=== PATIENT | female | born 1980 | race African-American/Black ===

== ENCOUNTER 2023-08-11 16:39 | Inpatient (IN) | payer MEDICAID, SELFPAY ==
[2023-08-11] VITALS (7 sets, daily range): BP systolic 133–153; BP diastolic 87–111; PULSE 103–120; RESP 14–19; TEMP 36.5–36.9; O2SAT 97–99; BMI 36.4; BMI 36.3
--- NOTE | 2023-08-11 17:38 | EKG12_ITS ---
Test Reason : DIZZINESS Blood Pressure : / mmHG Vent. Rate : 110 BPM Atrial Rate : 110 BPM P-R Int : 152 ms QRS Dur : 136 ms QT Int : 368 ms P-R-T Axes : 059 -22 015 degrees QTc Int : 498 ms Sinus tachycardia Possible Left atrial enlargement Right bundle branch block Abnormal ECG Confirmed by ERICA DAWSON, SANDRO ([id number]), editor greeting card ANDREW LOERA ([id number]) on 08/12/2023 1:18:05 PM Referred By: REKHA Confirmed By:SANDRO MALDONADO MD
--- NOTE | 2023-08-11 17:39 | EDS_ITS ---
HPI History of Present Illness Chief Complaint: Dizziness Narrative Narrative: 43-year-old female past medical history of diabetes, hypertension, recently started on a new antihypertensive, presents with multiple somatic complaints, but mainly lightheadedness and near syncope. Is not necessarily worse with standing. She states been happening over the last few days. She feels like she is going to pass out when she stands, but other times even at rest she feels lightheaded. She denies any chest pain or shortness of breath, no nausea or vomiting, no diarrhea. She denies any spinning sensation or vertiginous-like symptoms, no paresthesias. Although she is diabetic, she states that she has been checking her blood sugars recently. Last menstrual period was a week ago. She states she took her blood pressure and it was elevated in the 140 systolic. [facility] Medical History delivery delivered Diabetes HTN (hypertension) TIA (transient ischemic attack) Home Medications carvedilol 3.125 mg tablet 3.125 mg PO BID 08/11/23 [History Last Taken Unknown] dulaglutide 0.75 mg/0.5 mL subcutaneous pen injector (Trulicity) 0.75 mg subcut QWEEK 08/11/23 [History Last Taken Unknown] lisinopril 5 mg tablet 5 mg PO DAILY 08/11/23 [History Last Taken Unknown] Allergy/AdvReac Type Severity Reaction Status Date / Time latex AdvReac Mild RASH Verified 08/11/23 16:44 Penicillins AdvReac UNKNOWN Verified 08/11/23 16:44 Family History Mother Diabetes Hypertension Father Diabetes Hypertension Surgical History Previous section Social History household members: significant other and children housing: house Smoking Status: Never smoker ROS ROS ED ROS Narrative Constitutional: No fever, no chills. HEENT: No sore throat. No neck pain. No loss of vision. No rhinorrhea. Cardiovascular: No chest pain. No palpitations. No pedal edema. Respiratory: No cough, no shortness of breath. Abdominal: No abdominal pain. No nausea. No vomiting. Genitourinary: No dysuria. No hematuria. Musculoskeletal: No myalgias. No arthralgias. Neurologic: No headaches. No dizziness. Of lightheadedness and near syncope. Skin: No rash. No change in color. Psychiatric: No depression. No anxiety. EXAM Physical Exam Narrative Exam Narrative: Afebrile. Vital signs noted. HEENT: Normocephalic. Atraumatic. PERRL, EOMI. Neck soft and supple. No point tenderness or step off. Cardiovascular: Tachycardia, no murmurs, rubs, or gallops appreciated. Respiratory: No tachypnea. Lungs clear to auscultation bilaterally. Gastrointestinal: Abdomen soft, nontender, with normoactive bowel sounds. No rebound or guarding. Neurological: Awake. Alert. Nonfocal, nonlateralizing. Skin: No rash. Normal color. No pallor. Musculoskeletal: No pedal edema. Full range of motion extremities. Const Vital Signs: 08/11/23 16:41 08/11/23 19:31 Temperature 97.7 F L Temperature Source Temporal Pulse Rate 120 H 110 H Respiratory Rate 18 14 Blood Pressure 152/108 H Blood Pressure Mean 122 Pulse Ox 99 Oxygen Delivery Method Room Air MDM MDM MDM Narrative Medical decision making narrative: Differential diagnosis is orthostatic hypotension, hyperglycemia, given her tachycardia lower on the differential is pulmonary embolism because the history and physical does not support this. She may have intravascular volume depletion. Comprehensive work-up was pursued. Obtain a CBC, CMP, test, and D-dimer. I do not feel CT of the brain is indicated because she is not having vertiginous-like symptoms is more near syncope. I do feel a single troponin would help rule out cardiac ischemia. EKG was obtained and interpreted by myself independently as sinus tachycardia at 110 bpm with a right bundle branch block. No acute ST changes. No STEMI. No prior with which to compare. I reviewed her laboratory work and she has normal white count of 5.4, hemoglobin slightly low at 11.8 which I think is nonspecific, crit 37.8, platelet count normal at 311. Her D-dimer is slightly elevated at 0.72. Potassium is slightly low at 3.3 and hyponatremia of 135, BUN normal at 9 with a creatinine of 1.13. Glucose is elevated to 80 consistent with her diabetes but she has an anion gap low at 4 so I do not have concern for diabetic ketoacidosis. AST is slightly elevated at 60 with ALT of 105 and she has a normal alk phos. Urinalysis is negative for infection. Of significance is her troponin elevated at 1494. As she had an elevated D-dimer, CTA was obtained. I reviewed the radiology report which reports no evidence of pulmonary embolism. Chest x-ray in 1 view was interpreted by myself which shows no acute process, no pneumonia. I reviewed the radiology report which confirms my independent interpretation. I feel antibiotics are indicated. She was star milan on heparin given her non-STEMI/elevated troponin. Also given aspirin. At this point in time, patient was discussed with hospitalist, Dr. Echevarria, for admission to the PCU. Patient is in stable condition. History & Record Review Discussion w/independent historian: Patient Additional record(s) reviewed:: No prior records Lab Data Attestation: I reviewed the patient's lab results. Labs: Laboratory Results - last 24 hr 08/11/23 08/11/23 08/11/23 18:01 18:04 19:25 WBC 5.4 RBC 4.41 Hgb 11.8 L Hct 37.8 MCV 85.7 MCH 26.8 L MCHC 31.2 L RDW Std Deviation 45.6 H RDW Coeff of Chad 14.6 Plt Count 311 MPV 10.1 Immature Gran % (Auto) 0.400 Neut % (Auto) 63.5 Lymph % (Auto) 26.6 [place] % (Auto) 7.6 Eos % (Auto) 1.3 Baso % (Auto) 0.6 Absolute Neuts (auto) 3.4 Absolute Lymphs (auto) 1.43 Nucleated RBC % 0 PT 14.1 INR 1.1 APTT 24.6 D-Dimer Quant (PE/DVT) 0.72 H* Sodium 135 L Potassium 3.3 L Chloride 106 Carbon Dioxide 25.0 Anion Gap 4 L BUN 9 Creatinine 1.13 H Estim Creat Clear Calc 53.65 Est GFR (MDRD) Af Amer 68 Est GFR (MDRD) Non-Af 56 L BUN/Creatinine Ratio 8.0 L Glucose 280 H Calcium 9.0 Total Bilirubin 0.60 AST 60 H ALT 105 H Alkaline Phosphatase 91 Troponin I High Sens 1494 H* Total Protein 6.8 Albumin 3.2 Globulin 3.6 Albumin/Globulin Ratio 0.9 Serum , Qual NEGATIVE Urine Color Yellow Urine Clarity Clear Urine pH 6.0 Ur Specific [place] 1.015 Urine Protein 30 H Urine Glucose (UA) 250 H Urine Ketones 5 H Urine Occult Blood Negative Urine Nitrite Negative Urine Bilirubin Negative Urine Urobilinogen Normal Ur Leukocyte Esterase Negative Urine RBC 0 SEEN Urine WBC 0 SEEN Ur Squamous Epith Cells 0 SEEN Urine Bacteria 0 SEEN Urine Mucus 0 SEEN Radiography Diagnostic Testing: Clinical Impression(s) from Imaging Studies Chest X-Ray 08/11/23 18:20 IMPRESSION: No acute cardiopulmonary pathology Electronically Signed: Mateus Reynolds MD at 18:31 EDT , Chest CTA 08/11/23 18:45 IMPRESSION: Cardiomegaly and minor atelectasis within the dependent portion of the lungs with tiny right pleural effusion. No evidence for pulmonary embolus Electronically Signed: Mateus Reynolds MD at 19:27 EDT , Discharge Plan Dx/Rx/DC Orders Clinical Impression: Lightheadedness, Non-STEMI (non-ST elevated myocardial infarction), Elevated d- dimer, Hypokalemia Disposition Disposition: Acute Care Hospital [facility] Discharge Date/Time: 08/11/23 21:07
[2023-08-11] MEDS: 0.9% Normal Saline (1000mL) 1,000 ML 1000 ML IV (18:00)
--- NOTE | 2023-08-11 18:20 | RAD_ITS ---
STUDY: X-RAY CHEST REASON FOR EXAM: Female, 43 years old. shortness of breath TECHNIQUE: AP portable COMPARISON: None. FINDINGS: The lungs are clear and expanded. There is no demonstrated pleural abnormality. Mild cardiomegaly exaggerated by AP portable technique. Normal mediastinum and lisa. Normal visualized pulmonary arteries. Normal visualized aortic arch and descending thoracic aorta. Normal visualized thoracic spine. Normal visualized ribs, clavicles, and shoulders. There is no demonstrated abnormality of the visualized soft tissue structures of the upper abdomen. RAD/Chest 1 View (Portable) IMPRESSION: No acute cardiopulmonary pathology Electronically Signed: Mateus Reynolds MD at 18:31 EDT ,
[2023-08-11 18:22] LABS: Absolute Lymphocyte Count 1.43 X10^3/uL (0.83-4.51); Absolute Neutrophil Count 3.4 X10^3/uL (2.0-7.7); Basophil# 0.03 X10^3/uL; Basophil% 0.6 % (0-1); Eosinophil# 0.07 X10^3/uL; Eosinophils% 1.3 % (0-5); Hematocrit 37.8 % (37-47); Hemoglobin 11.8 g/dL (12.0-15.0); Lymphocyte # 1.43 X10^3/ul (0.83-4.51); Lymphocyte % 26.6 % (19-41); Mean Corp Hgb Conc 31.2 g/dL (32-36); Mean Corpuscular Hgb 26.8 pg (27.0-32.0); Mean Corpuscular Volume 85.7 fL (81-99); Mean Platelet Vol. 10.1 fl (6.2-12.0); Monocyte# 0.41 X10^3/uL; Monocyte% 7.6 % (0-10); NRBC Flagged by Analyzer 0 % (0-5); Neutrophil # 3.42 X10^3/uL (2.7-7.7); Neutrophil % 63.5 % (47-70); Platelet Count 311 K/mm3 (150-450); RBC Distribution Width CV 14.6 % (11.6-14.6); RBC Distribution Width SD 45.6 fl (35.1-43.9); Red Blood Count 4.41 M/mm3 (4.2-5.4); White Blood Count 5.4 K/mm3 (4.4-11.0)
[2023-08-11 18:24] LABS: Internal QC Validated? YES +Cl - CLEAR BKGD; Pregnancy, Serum, hCG Quali. NEGATIVE Negative
[2023-08-11 18:37] LABS: D-Dimer Quantitative (DVT/PE) 0.72 FEU/ug/m (0.27-0.49)
[2023-08-11 18:40] LABS: ALB/GLOB Ratio 0.9 RATIO (0.9-2.4); AST(SGOT) 60 U/L (15-37); Alanine Aminotransfer ALT/SGPT 105 U/L (13-56); Albumin, Serum 3.2 g/dL (3.2-5.0); Alkaline Phosphatase 91 U/L (45-117); Anion Gap 4 (5-15); BUN 9 mg/dL (7-18); Chloride 106 mmol/L (98-107); Creatinine, Serum 1.13 mg/dL (0.55-1.02); EST Glomerular Filtration Rate 56 mL/min (>60); Est Glom Filt Rate - Afr Amer 68 mL/min (>60); Estimated Creatinine Clearance 53.65 ml/min; Globulin 3.6 g/dL (2.2-4.2); Glucose 280 mg/dL (74-106); Potassium 3.3 mmol/L (3.5-5.1); Protein, Total 6.8 g/dL (6.4-8.2); Sodium Level 135 mmol/L (136-145); Troponin-I HS 1494 pg/mL (3.0-54.0)
--- NOTE | 2023-08-11 18:45 | CT_ITS ---
STUDY: CTA CHEST REASON FOR EXAM: Female, 43 years old. Elevated D Dimer RADIATION DOSAGE (If Supplied By Facility): CTDIvol = ( 16.07 ) mGy, DLP = ( 514.28 ) mGycm TECHNIQUE: The examination was performed with the intravenous administration of IV 100mL Isovue-370. Post-processing of the angiographic images was performed, with multiplanar reformation and 3D reconstruction. Individualized dose optimization techniques were used for this CT. COMPARISON: None. FINDINGS: Normal enhancement of the main pulmonary artery and right and left pulmonary arteries. Normal enhancement of the bilateral peripheral pulmonary arteries. There is no demonstrated pulmonary embolism. Normal thoracic aorta and visualized great vessels. There is no demonstrated aortic dissection. Heart is enlarged however there is no appreciable coronary artery calcification Normal mediastinum. Normal hilar regions. Normal visualized trachea and bronchi. The lungs are well expanded. Minor atelectasis within the dependent portion of the lungs Tiny right pleural effusion.. Normal chest wall structures. Normal osseous structures. Normal visualized upper abdomen. CT/CTA Chest W/WO Contrast IMPRESSION: Cardiomegaly and minor atelectasis within the dependent portion of the lungs with tiny right pleural effusion. No evidence for pulmonary embolus Electronically Signed: Mateus Reynolds MD at 19:27 EDT ,
[2023-08-11 19:02] LABS: International Normalized Ratio 1.1; Partial Thromboplast Time 24.6 Seconds (24.1-36.2); Prothrombin Time (Protime)PT. 14.1 SECONDS (11.7-14.9)
[2023-08-11] MEDS: Heparin Injection (Vial) 5,000 UNIT/ML VIAL 4000 UNIT IV (19:23)
[2023-08-11] MEDS: Aspirin 81 MG TAB.CHEW 324 MG PO (19:25)
[2023-08-11] MEDS: HEPARIN/D5w 25,000 UNITS 25,000 UNITS/250 ML IV.SOLN. 0.1 UNITS CONT INF (19:25)
[2023-08-11 19:40] LABS: Bacteria 0 SEEN /hpf (None Seen); Mucous, Urine 0 SEEN /hpf (<or=2+); Red Blood Cells-Urine 0 SEEN /hpf (0-5); Squamous Epithelial Cells - UA 0 SEEN /hpf (5-10); White Blood Cells 0 SEEN /hpf (0-5)
[2023-08-11 19:52] LABS: Color, Urine Yellow (Yellow); Glucose, Dipstick 250 mg/dl (Normal); Ketone-Dipstick 5 mg/dl (Negative); Leukocyte Esterase-Dipstick Negative /ul (Negative); Nitrite-Dipstick Negative (Negative); Occult Blood-Urine Negative /ul (Negative); Protein-Dipstick 30 mg/dl (Negative); Specific Gravity, Urine 1.015 (1.002-1.030); Urine Bilirubin Dipstick Negative (Negative); Urine Clarity Clear (Clear); Urine Urobilinogen Normal (Normal)
--- NOTE | 2023-08-11 20:05 | EKG12_ITS ---
Test Reason : CP Admission Blood Pressure : / mmHG Vent. Rate : 109 BPM Atrial Rate : 109 BPM P-R Int : 158 ms QRS Dur : 134 ms QT Int : 372 ms P-R-T Axes : 062 -27 026 degrees QTc Int : 500 ms Sinus tachycardia Right bundle branch block Abnormal ECG When compared with ECG of 11-AUG-2023 17:54, MANUAL COMPARISON REQUIRED, DATA IS UNCONFIRMED Confirmed by ERICA DAWSON, SANDRO ([id number]), fan mail editor ANDREW LOERA ([id number]) on 09/08/2023 1:49:47 PM Referred By: Swathi Confirmed By:SANDRO MALDONADO MD
--- NOTE | 2023-08-11 20:10 | PCM.HP.STD ---
HPI - General General Date of Admission: 08/11/23 Date of Service: 08/11/23 Chief Complaint: Light headedness HPI Narrative MANDA BILL, is a 43 F with a significant history of hypertension; diabetes mellitus and TIA who presents to the emergency department with 3-day history of progressively worsening lightheadedness. Associated with her symptoms is nausea and dyspnea with exertion. Also patient reports epigastric fullness. She denies any oj chest pain. She was prescribed 2 blood pressure medicines about a week ago; and began taking these 2 meds 2 days before presentation ago. On the presentation her blood pressure at home was 148/112. Of note patient she reports a history of heart disease; and TIA that started about 3 months after she had her baby. She is unable to elaborate the exact heart disease that she had. Her mother from cardiac arrest at the age of 59. Also her mother had CVA. [facility] Medical History delivery delivered Diabetes HTN (hypertension) TIA (transient ischemic attack) Home Medications carvedilol 3.125 mg tablet 3.125 mg PO BID 08/11/23 [History Last Taken Unknown] dulaglutide 0.75 mg/0.5 mL subcutaneous pen injector (Trulicity) 0.75 mg subcut QWEEK 08/11/23 [History Last Taken Unknown] lisinopril 5 mg tablet 5 mg PO DAILY 08/11/23 [History Last Taken Unknown] Allergy/AdvReac Type Severity Reaction Status Date / Time latex AdvReac Mild RASH Verified 08/11/23 16:44 Penicillins AdvReac UNKNOWN Verified 08/11/23 16:44 Family History Mother Diabetes Hypertension Father Diabetes Hypertension Surgical History Previous section Social History household members: significant other and children housing: house Smoking Status: Never smoker ROS ROS Narrative Pertinent positives and pertinent negatives as noted in HPI. All other systems were reviewed and are negative Vital Signs Vital Signs Vital Signs: 08/11/23 16:41 08/11/23 19:31 Temperature 97.7 F L Temperature Source Temporal Pulse Rate 120 H 110 H Respiratory Rate 18 14 Blood Pressure 152/108 H Blood Pressure Mean 122 Pulse Ox 99 Oxygen Delivery Method Room Air Weight Weight: 93.304 kg Body Mass Index (BMI) 36.4 Physical Exam Narrative Physical exam: General: Well-nourished, well-developed. Head: Normocephalic, atraumatic, no tenderness Eyes: Vision is grossly intact. EOMI ENT, no trauma, moist mucous membranes, no rhinorrhea Neck: Nontender, No thyromegaly. CVS: Regular rate and rhythm. S1-S2 present. No murmur, gallop or rub. Respiratory : clear to auscultation bilaterally, chest wall nontender Abdomen: Soft, nontender, nondistended, normal bowel sounds, no masses : Deferred Back: Nontender, no CVA tenderness, Extremities: Nontender full range of motion, no trauma Skin: Normal color, no trauma, abrasions Neuro: Alert, oriented, cranial nerves II through XII grossly intact. Psychiatry: Normal mood. Normal affect. Not depressed. Not anxious. Results Lab / Micro Data 08/11/23 18:04 08/11/23 18:04 Labs: Laboratory Results - last 24 hr 08/11/23 18:01: PT 14.1, INR 1.1, APTT 24.6 08/11/23 18:04: WBC 5.4, RBC 4.41, Hgb 11.8 L, Hct 37.8, MCV 85.7, MCH 26.8 L, MCHC 31.2 L, RDW Std Deviation 45.6 H, RDW Coeff of Chad 14.6, Plt Count 311, MPV 10.1, Immature Gran % (Auto) 0.400, Neut % (Auto) 63.5, Lymph % (Auto) 26.6, [place] % (Auto) 7.6, Eos % (Auto) 1.3, Baso % (Auto) 0.6, Absolute Neuts (auto) 3.4, Absolute Lymphs (auto) 1.43, Nucleated RBC % 0, D-Dimer Quant (PE/DVT) 0.72 H*, Sodium 135 L, Potassium 3.3 L, Chloride 106, Carbon Dioxide 25.0, Anion Gap 4 L, BUN 9, Creatinine 1.13 H, Estim Creat Clear Calc 53.65, Est GFR (MDRD) Af Amer 68, Est GFR (MDRD) Non-Af 56 L, BUN/Creatinine Ratio 8.0 L, Glucose 280 H, Calcium 9.0, Total Bilirubin 0.60, AST 60 H, ALT 105 H, Alkaline Phosphatase 91, Troponin I High Sens 1494 H*, Total Protein 6.8, Albumin 3.2, Globulin 3.6, Albumin/Globulin Ratio 0.9, Serum , Qual NEGATIVE 08/11/23 19:25: Urine Color Yellow, Urine Clarity Clear, Urine pH 6.0, Ur Specific [place] 1.015, Urine Protein 30 H, Urine Glucose (UA) 250 H, Urine Ketones 5 H, Urine Occult Blood Negative, Urine Nitrite Negative, Urine Bilirubin Negative, Urine Urobilinogen Normal, Ur Leukocyte Esterase Negative, Urine RBC 0 SEEN, Urine WBC 0 SEEN, Ur Squamous Epith Cells 0 SEEN, Urine Bacteria 0 SEEN, Urine Mucus 0 SEEN Radiology Impression Chest X-Ray 08/11/23 18:20 IMPRESSION: No acute cardiopulmonary pathology Electronically Signed: Mateus Reynolds MD at 18:31 EDT Reading Location ID and State: [facility] [place] / [place] Tel [phone], Service support , Chest CTA 08/11/23 18:45 IMPRESSION: Cardiomegaly and minor atelectasis within the dependent portion of the lungs with tiny right pleural effusion. No evidence for pulmonary embolus Electronically Signed: Mateus Reynolds MD at 19:27 EDT , Assessment & Plan Assessment/Plan (1) Non-STEMI (non-ST elevated myocardial infarction): PLAN: Plan Non-STEMI Initial high sensitive troponin 1494. Trended to 2092 and then 2113. With dyspnea on exertion and epigastric fullness; atypical symptoms. Place on a monitored bed at the progressive care unit. CXR image was independently interpreted. No acute cardiopulmonary process was noted; agrees with radiology interpretation. Impression of chest CTA by radiology: Chest CTA with cardiomegaly and minor atelectasis within the dependent portion of the lungs with tiny right pleural effusion. No evidence for pulmonary embolus. Actual EKG tracing was independently visualized. EKG tracing showed block with right bundle branch block. Aspirin and high intensity statin started. Lisinopril and carvedilol continued. We will check lipid panel. Stat EKG as needed for chest pain. Started on heparin drip at the emergency department and continued We will keep patient n.p.o. except meds. Echocardiogram ordered. Cardiology consult. Hypertension On presentation blood pressure was not within goal. Patient was prescribed blood pressure medicine about a week ago and she began taking 2 days ago. She takes carvedilol and lisinopril. Carvedilol and lisinopril ordered. Trend blood pressures. Adjust blood pressure medication as necessary. Diabetes mellitus Patient with hyperglycemia on presentation [facility]. Continue correction scale insulin ordered. DVT prophylaxis Indicated as patient is on heparin drip. Time spent in the patient's overall evaluation,decision-making process, review of diagnostic data, adjustment of management, discussion with other providers, nursing and ancillary staff involved in patient's care documentation, 65 minutes. Charges/Coding Visit Charges Inpatient E&M: 81475 Init Hosp L3
[2023-08-11 22:23] LABS: Bedside Glucose 242 mg/dL (74-106)
[2023-08-11 23:02] LABS: Troponin-I HS 2093 pg/mL (3.0-54.0)
[2023-08-11] MEDS: Carvedilol 3.125 MG TABLET PO (23:14)
[2023-08-11] MEDS: Atorvastatin Calcium 80 MG Tablet PO (23:14)
[2023-08-11] MEDS: 0.9% Normal Saline (1000mL) 1,000 ML 75 ML IV (23:34)
[2023-08-12] VITALS (11 sets, daily range): BP systolic 121–140; BP diastolic 78–95; PULSE 87–96; RESP 16–21; TEMP 36.1–36.6; O2SAT 92–98
[2023-08-12 00:44] LABS: Troponin-I HS 2114 pg/mL (3.0-54.0)
[2023-08-12 02:05] LABS: Partial Thromboplast Time 67.5 Seconds (24.1-36.2)
--- NOTE | 2023-08-12 05:55 | ECHOCS_ITS ---
Reason For Study: CHEST PAIN Procedure This was a 2D Doppler, Color Flow transthoracic echocardiogram. The study was technically difficult. Contrast injection was performed. Exam performed portable in patient room. Left Ventricle Normal LV size. The estimated ejection fraction is 25 %. Severe global left ventricular systolic dysfunction. Stage 3 diastolic dysfunction. There is severe global hypokinesis of the left ventricle. Right Ventricle Normal RV size. Normal systolic function. Atria The left atrium is mildly enlarged. Normal right atrium. Mitral Valve Bileaflet diffuse mitral valve thickening. Mild-Moderate (1-2+) eccentric mitral valve insufficiency. Tricuspid Valve Normal tricuspid valve. Moderate (2+) tricuspid valve insufficiency. Pulmonary artery systolic pressure is 55 mmHg. Moderate pulmonary hypertension. Aortic Valve Normal aortic valve. Trisinus/trileaflet aortic valve. Pulmonic Valve Normal pulmonic valve. Mild (1+) pulmonic valve insufficiency. Great Vessels Normal aortic root. The pulmonary artery is normal size. Normal inferior vena cava. Pericardium/Pleural No pericardial effusion. Medication Diluted definity 1ml given slow IV push to enhance endocardial definition. MMode/2D Measurements & Calculations LVIDd: 5.4 cm IVSd: 0.86 cm Ao root diam: 2.1 cm LVIDs: 4.6 cm LVPWd: 1.2 cm RVDd: 4.0 cm FS: 15.5 % LAV(MOD-bp): 73.8 ml LVAd ap4: 41.3 cm2 SV(MOD-sp4): 43.7 ml LAV(MOD-bp) Indexed: 37.8 ml/m2 LVLd ap4: 8.4 cm LAV(MOD-sp2): 57.4 ml EDV(MOD-sp4): 167.9 ml LAV(MOD-sp4): 68.0 ml EDV(sp4-el): 171.8 ml LVAs ap4: 33.9 cm2 LVLs ap4: 7.7 cm ESV(MOD-sp4): 124.3 ml ESV(sp4-el): 126.8 ml EF(MOD-sp4): 26.0 % EF(sp4-el): 26.2 % SV(sp4-el): 45.0 ml LA A4 area: 23.4 cm2 LA dimension(2D): 4.4 cm RA A4 area: 13.3 cm2 TAPSE: 1.5 cm Time Measurements MV dec time: 0.13 sec Doppler Measurements & Calculations MV E max pancho: 110.7 cm/sec MV V2 max: 123.7 cm/sec MV dec slope: 933.1 cm/sec2 MV A max pancho: 26.5 cm/sec MV max P.1 mmHg MV E/A: 4.2 MV V2 mean: 83.5 cm/sec MV mean P.1 mmHg MV V2 VTI: 21.0 cm Ao V2 max: 105.8 cm/sec LV V1 max: 100.3 cm/sec MR max pancho: 470.6 cm/sec Ao max P.5 mmHg LV V1 max P.0 mmHg MR max P.6 mmHg Ao V2 mean: 76.5 cm/sec LV V1 mean P.3 mmHg Ao mean P.6 mmHg LV V1 mean: 71.4 cm/sec Ao V2 VTI: 17.7 cm LV V1 VTI: 14.7 cm AV (velocity ratio): 0.83 PA V2 max: 63.4 cm/sec TR max pancho: 355.2 cm/sec PA V2 mean: 47.9 cm/sec TR max P.5 mmHg ECHO/Echo Complete W/ Contrast Interpretation Summary Normal LV size. The estimated ejection fraction is 25 %. Severe global left ventricular systolic dysfunction. The left atrium is mildly enlarged. Mild-Moderate (1-2+) eccentric mitral valve insufficiency. Moderate pulmonary hypertension. Stage 3 diastolic dysfunction. Contrast injection was performed. Ordering Physician: Ha Echevarria Referring Physician: GARRY RODRIGUEZ Performed By: Lesley Fenton RCS
[2023-08-12] MEDS: Aspirin E.C. 81 MG Tablet PO (06:19)
[2023-08-12] MEDS: Carvedilol 3.125 MG TABLET PO (06:19)
[2023-08-12] MEDS: Lisinopril 5 MG Tablet PO (06:19)
[2023-08-12 06:43] LABS: Bedside Glucose 294 mg/dL (74-106)
--- NOTE | 2023-08-12 07:15 | PCM.CONS.C ---
Assessment & Plan Assessment/Plan (1) Non-STEMI (non-ST elevated myocardial infarction): PLAN: She presents with epigastric discomfort and cardiac enzyme abnormality. I suspect that the above is likely due to demand ischemia from her markedly elevated blood pressure. My recommendation is to definitively exclude coronary disease with a left heart catheterization and then treated aggressively with risk factor modification. Addendum: Left main coronary artery is noted to be normal. Left anterior descending artery with no significant disease. Left circumflex artery nondominant is normal. Right coronary artery dominant with no significant stenosis. Left ventriculogram demonstrated severe left ventricular systolic dysfunction estimated ejection fraction of 20% confirming cardiomyopathy. (2) HTN (hypertension): PLAN: Her blood pressure does not appear to be very well controlled. My recommendation will be to increase her carvedilol to 6.25 mg twice a day and continue the lisinopril and titrate upwards as appropriate. An echocardiogram should be performed to assess her ventricular function. (3) Peripartum cardiomyopathy, antepartum condition or complication: PLAN: From her history it appears that she may have had peripartum cardiomyopathy. She was put on a control pill but she is currently not taking it. She remains sexually active. I will like us to obtain an echocardiogram to assess her ventricular function. She may need to be referred to a [facility] for further evaluation and advice. In the meantime she will remain on the beta-magnolia as well as МАРИНА inhibitor and for us to consider an SGLT2 inhibitor. Thank you for allowing me to participate in the care of your patient. Please don't hesitate to call if any issues arise. HPI Consult Data Date of Consult: 08/12/23 HPI Narrative HPI Narrative: MANDA BILL, is a 43 F who presents to the emergency room with mild dizziness as well as epigastric discomfort. She says that this has been going on for approximately 3 days or so. She had been on medication and felt very fatigued. Interestingly enough she says that approximate 11 years ago after she had a baby she may have been diagnosed with a cardiac condition called a cardiomyopathy. She was placed on medication she cannot remember exactly what tests were done. She denies any oj syncope she does not have any exertional chest discomfort. She has been compliant with her medications. On presentation to the emergency room she was noted to be in sinus rhythm with a right bundle branch block. Cardiac enzymes were noted to be abnormal and cardiology was called for further evaluation and management. She is currently pain-free. Her blood pressure was also noted to be elevated on admission. [facility] Medical History (Updated 08/12/23 @ 07:[address] Damian Blanco MD) delivery delivered Diabetes HTN (hypertension) TIA (transient ischemic attack) Home Medications carvedilol 3.125 mg tablet 3.125 mg PO BID 08/11/23 [History Last Taken Unknown] dulaglutide 0.75 mg/0.5 mL subcutaneous pen injector (Trulicity) 0.75 mg subcut QWEEK 08/11/23 [History Last Taken Unknown] lisinopril 5 mg tablet 5 mg PO DAILY 08/11/23 [History Last Taken Unknown] Allergy/AdvReac Type Severity Reaction Status Date / Time latex AdvReac Mild RASH Verified 08/11/23 16:44 Penicillins AdvReac UNKNOWN Verified 08/11/23 16:44 Family History Mother Diabetes Hypertension Father Diabetes Hypertension Surgical History Previous section Social History household members: significant other and children housing: house Smoking Status: Never smoker ROS Constitutional Constitutional: Denies fever(s) or weight loss Eyes Eyes: Reports systems reviewed and no addt'l complaints, except as documented ENT HEENT: Reports systems reviewed and no addt'l complaints, except as documented Cardiovascular Cardiovascular: Reports chest pain at rest; Denies chest pain with activity, dyspnea at rest, dyspnea on exertion, edema, palpitations or paroxysmal nocturnal dyspnea Respiratory/Chest Respiratory/Chest: Denies dyspnea on exertion, productive cough, shortness of breath at rest or shortness of breath with exertion Gastrointestinal Gastrointestinal: Denies change in bowel habits, nausea, vomiting or weight changes Genitourinary Genitourinary: Denies difficulty urinating Musculoskeletal Musculoskeletal: Denies joint stiffness or muscle weakness Integumentary Integumentary: Denies lesions Neurologic Neurologic: Reports dizziness; Denies syncope Psychiatric Psychiatric: Denies anxiety Endocrine Endocrinology: Denies excessive sweating or fatigue Hematologic/Lymphatic Hematologic/Lymphatic: Denies anemia Allergic/Immunologic Allergic/Immunologic: Denies seasonal rhinorrhea Physical Exam Const alert, oriented x3 and no apparent distress General Appearance: cooperative HEENT hearing grossly normal bilaterally Head and Scalp: atraumatic Eyes EOMs intact bilaterally Neck General: normal visual inspection Chest inspection of chest normal Resp normal respiratory effort Auscultation: clear to auscultation bilaterally Cardio regular rate, regular rhythm, S1 normal heart sound and S2 normal heart sound Jugular Venous Distention: JVD Heart Sounds: gallop S3 gallop GI normal to inspection, nondistended, normoactive bowel sounds Extremity normal capillary refill and no pedal edema Peripheral Pulses: Yes pulses 2+ throughout and femoral pulses present Skin no rashes or lesions noted Neuro oriented x3 and CN's II-XII intact bilaterally Psych Appearance: grossly normal and appropriate Risk Stratification Risk Stratification Applicable: Yes Age >/= 65: No >/= 3 CAD Risk Factors (HTN, HLD, DM, family hx of CAD, or current smoker): Yes Aspirin Use in the Past 7 Days: No Severe Angina (>/= episodes in 24 hours): No EKG ST Changes >/= 0.5mm: No Positive Cardiac Marker: Yes KIMANI Risk Stratification Score: 2 KIMANI % Risk: 8% Risk Objective Data Vital Signs: Vital Signs Temp Pulse Resp BP Pulse Ox O2 Del Method 97.0 F L 96 16 133/84 H 98 Room Air 08/12/23 06:17 08/12/23 06:17 08/12/23 06:17 08/12/23 06:17 08/12/23 06:17 08/12/23 06:17 Oxygen Delivery Method Room Air Weight: 205 lb Body Mass Index (BMI) 36.3 Intake & Output: Intake and Output for Last 24 Hours 08/10/23 08/11/23 08/12/23 23:59 23:59 23:59 Intake Total 1000.23 / 1240.23 381.66 / 381.66 Balance 1000.23 / 1240.23 381.66 / 381.66 Lab / Micro Data 08/12/23 07:20 08/12/23 07:20 Labs: Laboratory Results - last 24 hr 08/11/23 18:01: PT 14.1, INR 1.1, APTT 24.6 08/11/23 18:04: WBC 5.4, RBC 4.41, Hgb 11.8 L, Hct 37.8, MCV 85.7, MCH 26.8 L, MCHC 31.2 L, RDW Std Deviation 45.6 H, RDW Coeff of Chad 14.6, Plt Count 311, MPV 10.1, Immature Gran % (Auto) 0.400, Neut % (Auto) 63.5, Lymph % (Auto) 26.6, Lawrence % (Auto) 7.6, Eos % (Auto) 1.3, Baso % (Auto) 0.6, Absolute Neuts (auto) 3.4, Absolute Lymphs (auto) 1.43, Nucleated RBC % 0, D-Dimer Quant (PE/DVT) 0.72 H*, Sodium 135 L, Potassium 3.3 L, Chloride 106, Carbon Dioxide 25.0, Anion Gap 4 L, BUN 9, Creatinine 1.13 H, Estim Creat Clear Calc 53.65, Est GFR (MDRD) Af Amer 68, Est GFR (MDRD) Non-Af 56 L, BUN/Creatinine Ratio 8.0 L, Glucose 280 H, Calcium 9.0, Total Bilirubin 0.60, AST 60 H, ALT 105 H, Alkaline Phosphatase 91, Troponin I High Sens 1494 H*, Total Protein 6.8, Albumin 3.2, Globulin 3.6, Albumin/Globulin Ratio 0.9, Serum , Qual NEGATIVE 08/11/23 19:25: Urine Color Yellow, Urine Clarity Clear, Urine pH 6.0, Ur Specific Pearcy 1.015, Urine Protein 30 H, Urine Glucose (UA) 250 H, Urine Ketones 5 H, Urine Occult Blood Negative, Urine Nitrite Negative, Urine Bilirubin Negative, Urine Urobilinogen Normal, Ur Leukocyte Esterase Negative, Urine RBC 0 SEEN, Urine WBC 0 SEEN, Ur Squamous Epith Cells 0 SEEN, Urine Bacteria 0 SEEN, Urine Mucus 0 SEEN 08/11/23 22:00: Troponin I High Sens 2093 H* 08/11/23 22:03: POC Glucose 242 H 08/12/23 00:05: Troponin I High Sens 2114 H* 08/12/23 01:45: APTT 67.5 H 08/12/23 06:21: POC Glucose 294 H Cardiology Labs/Tests 08/11/23 18:01: PT 14.1, INR 1.1, APTT 24.6 08/11/23 18:04: WBC 5.4, RBC 4.41, Hgb 11.8 L, Hct 37.8, MCV 85.7, MCH 26.8 L, MCHC 31.2 L, Plt Count 311, MPV 10.1, Immature Gran % (Auto) 0.400, Neut % (Auto) 63.5, Lymph % (Auto) 26.6, Lawrence % (Auto) 7.6, Eos % (Auto) 1.3, Baso % (Auto) 0.6, Absolute Neuts (auto) 3.4, Nucleated RBC % 0, D-Dimer Quant (PE/DVT) 0.72 H*, Sodium 135 L, Potassium 3.3 L, Chloride 106, Carbon Dioxide 25.0, Anion Gap 4 L, BUN 9, Creatinine 1.13 H, Est GFR (MDRD) Af Amer 68, Est GFR (MDRD) Non-Af 56 L, BUN/Creatinine Ratio 8.0 L, Glucose 280 H, Calcium 9.0, Total Bilirubin 0.60 08/11/23 19:25: Urine Color Yellow, Urine Clarity Clear, Urine pH 6.0, Ur Specific Pearcy 1.015, Urine Protein 30 H, Urine Glucose (UA) 250 H, Urine Ketones 5 H, Urine Occult Blood Negative, Urine Nitrite Negative, Urine Bilirubin Negative, Urine Urobilinogen Normal, Ur Leukocyte Esterase Negative, Urine RBC 0 SEEN, Urine WBC 0 SEEN 08/12/23 01:45: APTT 67.5 H Rhythm: EKG: ECHO: Stress Test: Cardiac Cath: PCI: CT Surgery: Holter monitor: EPS: PPM: CXR: Chest CT Scan: Radiography Diagnostic Testing: Radiology Impression Chest X-Ray 08/11/23 18:20 IMPRESSION: No acute cardiopulmonary pathology Electronically Signed: Mateus Reynolds MD at 18:31 EDT , Chest CTA 08/11/23 18:45 IMPRESSION: Cardiomegaly and minor atelectasis within the dependent portion of the lungs with tiny right pleural effusion. No evidence for pulmonary embolus Electronically Signed: Mateus Reynolds MD at 19:27 EDT ,
[2023-08-12 07:28] LABS: Hematocrit 36.4 % (37-47); Hemoglobin 11.4 g/dL (12.0-15.0); Mean Corp Hgb Conc 31.3 g/dL (32-36); Mean Corpuscular Hgb 26.5 pg (27.0-32.0); Mean Corpuscular Volume 84.7 fL (81-99); Mean Platelet Vol. 9.9 fl (6.2-12.0); Platelet Count 278 K/mm3 (150-450); RBC Distribution Width CV 14.5 % (11.6-14.6); White Blood Count 6.7 K/mm3 (4.4-11.0)
[2023-08-12 07:49] LABS: Partial Thromboplast Time 46.2 Seconds (24.1-36.2)
[2023-08-12 08:00] LABS: Anion Gap 5 (5-15); BUN 7 mg/dL (7-18); BUN/Creat Ratio 7.7 RATIO (10-20); Calcium,Total 8.3 mg/dL (8.5-10.1); Chloride 108 mmol/L (98-107); Cholesterol 115 mg/dL (200); Creatinine, Serum 0.91 mg/dL (0.55-1.02); EST Glomerular Filtration Rate 72 mL/min (>60); Est Glom Filt Rate - Afr Amer 87 mL/min (>60); Estimated Creatinine Clearance 66.62 ml/min; Glucose 272 mg/dL (74-106); High Density Lipoprotein 48 mg/dL; Potassium 3.9 mmol/L (3.5-5.1); Sodium Level 137 mmol/L (136-145); Triglycerides 99 mg/dL; Very Low Density Lipoprotein 20 mg/dL (5-40)
--- NOTE | 2023-08-12 09:05 | CL.D_ITS ---
Patient Name: MANDA BILL Study Date: 08/12/2023 Performing: Damian Blanco MD Ht: 63 inches 160.02 cm : 1980 Wt: 205.3 lbs 92.99 kg Age: 43 Gender: female BSA: 1.95 PROCEDURE(S) PERFORMED DC01-(03206)LHC/COR/LV CLINICAL PROFILE AND INDICATIONS Indications: Suspected CAD Heart Failure: None Stress/Imaging Stress/Image Study Performed: No CAD Presentations: Other: sob CONCLUSIONS Normal coronary arteries Cardiomyopathy: Dilated idiopathic RECOMMENDATIONS Medical therapy DESCRIPTION OF PROCEDURE The patient arrived to the procedure lab. The risks and benefits of the procedure as well as a full description of our services here and current unavailability of surgical backup were fully explained to the patient and/or their significant other prior to the catheterization. The Timeout was completed, verifying the correct patient and procedure. The patient's procedural site was prepped and draped in the usual fashion. Local anesthetic was given subcutaneously to right radial region with Lidocaine 2%. Local anesthetic was given subcutaneously to right groin region with Lidocaine 2%. Using a modified Seldinger technique, arterial access was obtained via the right radial artery, a 6Fr sheath was inserted., arterial access was obtained via the right femoral artery, a 5Fr sheath was inserted. Left Coronary Artery selective angiography was performed in multiple views using a 5 Fr. JL3.5 catheter. Right Coronary Artery selective angiography was then performed in multiple views using a 5 Fr. 3DRC (Warren) catheter. Left Ventriculography was performed in MORENO projection using a 5 Fr. Pigtail catheter. Left Ventriculography was performed in MORENO projection using a 5 Fr. Pigtail catheter. LV to AO pullback pressures were then recorded.The arterial sheath was pulled and manual compression applied until hemostasis is achieved.. The VENOUS sheath was pulled and a TR Band was applied for hemostasis - 6CC AIR CORONARY ANGIOGRAPHY DOMINANCE: Right Dominant LEFT HEART ASSESSMENT Left Ventricular Ejection Fraction: by LV Gram 20 % Global Hypokinesis - Severe Depressed Left Ventricular systolic function LEFT MAIN: Angiographically normal LEFT ANTERIOR DESCENDING ARTERY: Angiographically normal CIRCUMFLEX ARTERY: Angiographically normal RIGHT CORONARY ARTERY: No significant disease noted COMPLICATIONS No Complications PROCEDURE MEDICATIONS Fentanyl 50 mcg IV Versed 1 mg IV Versed 1 mg IV Oxygen: 2 L/min via nasal cannula Heparin given IA 08/12/2023 08:16:02 Verapamil 2.5mg, Ntg 100mcgs, 3000 units of Heparin given IA 08/12/2023 08:16:02 SUMMARY OF HEMODYNAMIC DATA Time AIR REST ECG 08:07:31 AO 129/94 (112) SA 08:25:05 LV 126/16, 35 08:33:09 LV 126/14, 34 08:33:17 LV 126/15, 37 08:34:08 LV 126/15, 36 08:34:19 LVp 130/15, 36 08:34:35 AOp 166/-15 (102) 08:34:43 Signed By Damian Blanco MD On 08/12/2023 09:04:49 Damian Blanco MD
[2023-08-12] MEDS: Lisinopril 10 MG Tablet PO (10:10)
--- NOTE | 2023-08-12 10:10 | CASEMGMT ---
Addendum entered by Trini Ghosh 08/12/23 12:03: Patient has order for discharge. RN CM in to discuss needs at discharge. Patient denies needs at this time. RN CM informed patient that I completed a tavera check for the Jardiance at [facility] and there is no co-pay for this medication. Patient had no further questions/concerns at this time. Trini MYERS, RN, CM Original Note: RN CM fabric designer CM Face to Face with patient for initial transition planning/care coordination assessment. RN CM introduced self and role at [facility]. Patient lying in bed, alert and oriented. Patient willing to participate in assessment and is able to answer all questions appropriately.? Care providers, pharmacy, and demographics verified. Patient wishes to discharge home, denies need for home health at this time.? Patient states he has no further needs or concerns at this time. CM to follow for discharge planning needs that may arise. PCP:GRANT Morris Specialists:Srinivas (electronics tech) Preferred Pharmacy:[facility] Insurance:Mtime Prescription Benefit:?Yes Living Will/HPOA:No/No. Informed patient she can establish these with SW during her stay if she would like. LNOK:Gardenia Kelley, Sister Living Arrangements:Lives with son and boyfriend in a 1 story duplex with 6 steps and railing to enter. Reports 14 steps with railing to basement where laundry is, but otherwise is a FFSU. Denies any difficulty with ambulating steps. Patient is independent in all ADLs and IADLs. Transportation:Self and boyfriend DME: Reports having grab bars in the bathroom, BP cuff, and glucometer and supplies. Patient denies needs for additional DME. HHC: Patient denies previous SNF and HHC. Disposition Plan:Patient to discharge home with family support and follow-up plans in place. Trini MYERS, RN, CM
[2023-08-12] MEDS: Empagliflozin 10 MG Tablet PO (12:38)
[2023-08-12] MEDS: Insulin Lispro 100 UNIT/ML INSULN.PEN SC ×2 (12:45→16:49)
[2023-08-12 12:56] LABS: Bedside Glucose 287 mg/dL (74-106)
--- NOTE | 2023-08-12 13:59 | CHAPLAIN ---
Type of Pastoral Visit _x__ Initial Visit ___ Follow-up Visit ___ On-call Visit ___ General Patient Visit ___ Spiritual Assessment ___ Family Conference ___ Bereavement ___ Rapid Response ___ Code Blue ___ Other (describe below) Pastoral Care Referral From _x__ Patient ___ Family ___ Nurse ___ Physician ___ [place] Weaver ___ Analytical Data Scientist ___ Other (describe below) Sacrament/Intervention ___ Active listening ___ Anointing ___ Gnosticist ___ Bereavement ___ Communion ___ Gail exploration ___ ___ Life review ___ Prayer ___ Reconciliation ___ Sacrament of Sick _x__ Supportive presence ___ Wedding ___ Other (describe below) Pastoral Comments offer of support given; pt states that I'm good and does not seek emotional or spiritual help; offer of kindness given and pt refuses stating that I am good
--- NOTE | 2023-08-12 15:00 | NURSING ---
This RN walked pt in cardozo. No signs of bleeding, hematoma, or complications to heart cath site.
--- NOTE | 2023-08-12 15:46 | PCM.DC ---
Discharge Instructions Diet Discharge Diet: Low fat / Low cholesterol and Carb Control Diet Activity Discharge Activity: Return to Normal Activity Dressing / Incision Call your doctor if you observe: Fever of 101 or Higher, Shortness of breath, Dizziness, Fainting spells, Swelling in the ankles, Chest pain and Increased palpitations (irregular heartbeat) Follow Up Care Test Results: Test results from this visit will be discussed in further detail at your follow-up appointment, if applicable. Discharge Plan Admission Admit Date/Time: 08/11/23 19:59 Attending Provider: Aj Colon Primary Care Provider: Jane Morris NP Consulting Providers: Damian Blanco; Ha Echevarria Discharge Orders/Prescriptions Prescriptions: New lisinopril 10 mg Tablet 10 mg PO DAILY 30 Days Qty: 30 0RF Jardiance 10 mg Tablet 10 mg PO DAILY 30 Days Qty: 30 0RF carvedilol [Coreg] 6.25 mg tablet 6.25 mg PO BID Qty: 60 0RF Rx Instructions: must administer with a meal/food Continued Trulicity 0.75 mg/0.5 mL pen injector 0.75 mg subcut QWEEK Discontinued lisinopril 5 mg tablet 5 mg PO DAILY carvedilol 3.125 mg tablet 3.125 mg PO BID Rx Instructions: must administer with a meal/food Referrals / Follow Up: Damian Blanco MD [Med Staff - Active Staff] - 09/09/23 3:35 pm NOT,DEFINED [Non-Staff] - Jane Morris NP, PUBLIC ADMINISTRATION PROFESSOR-C [Primary Care Provider] - Within 1 Week Disposition Disposition (needs filled in before D/C Order can be placed): Home, Self Care
--- NOTE | 2023-08-12 15:49 | PCM.DC.SUM ---
Providers Date of Admission: 08/11/23 Primary Care Physician: ODALYS Iraheta Consultations 08/11/23 21:22 Consult: Cardiology Routine Consulting Provider: Damian Blanco Reason for Consult: Chest Pain EMERGENT Consult: No MD Notified: Yes Date Notified: 08/11/23 Time Notified: 20:03 Method of Notification: Verbal Reason For Visit: NON-STEMI Diagnosis Discharge Diagnosis (1) Non-STEMI (non-ST elevated myocardial infarction): Status: Acute Code(s): I21.4 - Non-ST elevation (NSTEMI) myocardial infarction (2) HTN (hypertension): Status: Chronic Code(s): I10 - Essential (primary) hypertension (3) Peripartum cardiomyopathy, antepartum condition or complication: Status: Acute Code(s): O90.3 - Peripartum cardiomyopathy Medications at Discharge Home Medications dulaglutide 0.75 mg/0.5 mL subcutaneous pen injector (Trulicity) 0.75 mg subcut QWEEK 08/11/23 carvedilol 6.25 mg tablet (Coreg) 6.25 mg PO BID #60 tabs 08/12/23 empagliflozin 10 mg tablet (Jardiance) 10 mg PO DAILY 30 days #30 tabs 08/12/23 lisinopril 10 mg tablet 10 mg PO DAILY 30 days #30 tabs 08/12/23 Hospital Course Operations None Procedures Cardiac catheterization Summary of Care Provided Minutes Spent on Discharge: 37 Hospital Course: Per HPI: MANDA BILL, is a 43 F with a significant history of hypertension; diabetes mellitus and TIA who presents to the emergency department with 3-day history of progressively worsening lightheadedness. Associated with her symptoms is nausea and dyspnea with exertion. Also patient reports epigastric fullness. She denies any oj chest pain. She was prescribed 2 blood pressure medicines about a week ago; and began taking these 2 meds 2 days before presentation ago. On the presentation her blood pressure at home was 148/112. Of note patient she reports a history of heart disease; and TIA that started about 3 months after she had her baby. She is unable to elaborate the exact heart disease that she had. Her mother from cardiac arrest at the age of 59. Also her mother had CVA. Hospital Course: 1. Chest pain with cardiomyopathy?43-year-old female who developed cardiac issues after the of her son 11 years ago presents to the hospital with chest pain lightheadedness as well as some increased shortness of breath. She was taken for cardiac catheterization by cardiology today who documented normal coronary arteries but an EF of 20%. Medications were adjusted, her Coreg was increased from 3.125-6.25 and her lisinopril was increased from 5 mg to 10 mg. She was also started on Jardiance 10 mg daily and cardiology requested that she follow-up in 1 month for further work-up. I discussed with her the plan for discharge and she expressed understanding of the risk benefits going home and would like to go home today. Physical Exam Narrative General: Alert, Oriented x3, Cooperative, No apparent distress HEENT: Atraumatic, PERRLA, EOMI, Normocephalic Oral: Moist Mucosa Neck: Supple, No JVD Lungs: Clear to auscultation, Normal air movement, No rhonchi, No wheeze, No rales Cardiovascular: Regular rate, Regular Rhythm, Normal S1, Normal S2, No murmurs Abdomen: Soft, Non Tender, Non-Distended, No Hepato-splenomegaly Extremities: No edema, Capillary Refill Less than 3 Seconds Skin: No rashes, No breakdown Musculoskeletal: No Tenderness to Palpation of Joints or Extremities Neurological: Cranial nerves II-XII grossly intact, Motor Exam 5/5 strength throughout, Sensory exam intact to light touch and pain Psych/Mental Status: Normal Affect, Appropriate Weight / BMI Weight Weight: 205 lb Body Mass Index (BMI) 36.3 ABG / Lab / Microbiology Data 08/12/23 07:20 08/12/23 07:20 Laboratory: Laboratory Results - last 24 hr 08/11/23 18:01: PT 14.1, INR 1.1, APTT 24.6 08/11/23 18:04: WBC 5.4, RBC 4.41, Hgb 11.8 L, Hct 37.8, MCV 85.7, MCH 26.8 L, MCHC 31.2 L, RDW Std Deviation 45.6 H, RDW Coeff of Chad 14.6, Plt Count 311, MPV 10.1, Immature Gran % (Auto) 0.400, Neut % (Auto) 63.5, Lymph % (Auto) 26.6, [place] % (Auto) 7.6, Eos % (Auto) 1.3, Baso % (Auto) 0.6, Absolute Neuts (auto) 3.4, Absolute Lymphs (auto) 1.43, Nucleated RBC % 0, D-Dimer Quant (PE/DVT) 0.72 H*, Sodium 135 L, Potassium 3.3 L, Chloride 106, Carbon Dioxide 25.0, Anion Gap 4 L, BUN 9, Creatinine 1.13 H, Estim Creat Clear Calc 53.65, Est GFR (MDRD) Af Amer 68, Est GFR (MDRD) Non-Af 56 L, BUN/Creatinine Ratio 8.0 L, Glucose 280 H, Calcium 9.0, Total Bilirubin 0.60, AST 60 H, ALT 105 H, Alkaline Phosphatase 91, Troponin I High Sens 1494 H*, Total Protein 6.8, Albumin 3.2, Globulin 3.6, Albumin/Globulin Ratio 0.9, Serum , Qual NEGATIVE 08/11/23 19:25: Urine Color Yellow, Urine Clarity Clear, Urine pH 6.0, Ur Specific [place] 1.015, Urine Protein 30 H, Urine Glucose (UA) 250 H, Urine Ketones 5 H, Urine Occult Blood Negative, Urine Nitrite Negative, Urine Bilirubin Negative, Urine Urobilinogen Normal, Ur Leukocyte Esterase Negative, Urine RBC 0 SEEN, Urine WBC 0 SEEN, Ur Squamous Epith Cells 0 SEEN, Urine Bacteria 0 SEEN, Urine Mucus 0 SEEN 08/11/23 22:00: Troponin I High Sens 2093 H* 08/11/23 22:03: POC Glucose 242 H 08/12/23 00:05: Troponin I High Sens 2114 H* 08/12/23 01:45: APTT 67.5 H 08/12/23 06:21: POC Glucose 294 H 08/12/23 07:20: WBC 6.7, RBC 4.30, Hgb 11.4 L, Hct 36.4 L, MCV 84.7, MCH 26.5 L, MCHC 31.3 L, RDW Std Deviation 44.0 H, RDW Coeff of Chad 14.5, Plt Count 278, MPV 9.9, APTT 46.2 H, Sodium 137, Potassium 3.9, Chloride 108 H, Carbon Dioxide 24.0, Anion Gap 5, BUN 7, Creatinine 0.91, Estim Creat Clear Calc 66.62, Est GFR (MDRD) Af Amer 87, Est GFR (MDRD) Non-Af 72, BUN/Creatinine Ratio 7.7 L, Glucose 272 H, Calcium 8.3 L, Triglycerides 99, Cholesterol 115, LDL Cholesterol 47, VLDL Cholesterol 20, HDL Cholesterol 48 08/12/23 12:36: POC Glucose 287 H Radiography Diagnostic Testing: Radiology Impression Chest X-Ray 08/11/23 18:20 IMPRESSION: No acute cardiopulmonary pathology Electronically Signed: Mateus Reynolds MD at 18:31 EDT Reading Location ID and State: [facility] / [place] Tel , Service support , Chest CTA 08/11/23 18:45 IMPRESSION: Cardiomegaly and minor atelectasis within the dependent portion of the lungs with tiny right pleural effusion. No evidence for pulmonary embolus Electronically Signed: Mateus Reynolds MD at 19:27 EDT Reading Location ID and State: [facility] / [place] Tel , Service support , D/C Instructions Discharge Diet: Low fat / Low cholesterol and Carb Control Diet Call your doctor if you observe: Fever of 101 or Higher, Shortness of breath, Dizziness, Fainting spells, Swelling in the ankles, Chest pain and Increased palpitations (irregular heartbeat) Meaningful Use Info Meaningful Use Diagnoses (Choose all that apply): None applicable Discharge Plan Admission Admit Date/Time: 08/11/23 19:59 Attending Provider: Aj Colon Primary Care Provider: Jane Morris NP Consulting Providers: Damian Blanco; Ha Echevarria Discharge Orders/Prescriptions Prescriptions: New lisinopril 10 mg Tablet 10 mg PO DAILY 30 Days Qty: 30 0RF Jardiance 10 mg Tablet 10 mg PO DAILY 30 Days Qty: 30 0RF carvedilol [Coreg] 6.25 mg tablet 6.25 mg PO BID Qty: 60 0RF Rx Instructions: must administer with a meal/food Continued Trulicity 0.75 mg/0.5 mL pen injector 0.75 mg subcut QWEEK Discontinued lisinopril 5 mg tablet 5 mg PO DAILY carvedilol 3.125 mg tablet 3.125 mg PO BID Rx Instructions: must administer with a meal/food Referrals / Follow Up: Damian Blanco MD [Med Staff - Active Staff] - 09/09/23 3:35 pm NOT,DEFINED [Non-Staff] - Jane Morris NP, MARKETING [employer]EARCH COORDINATOR-C [Primary Care Provider] - Within 1 Week Disposition Disposition (needs filled in before D/C Order can be placed): Home, Self Care Charges/Coding Visit Charges Inpatient E&M: 28414 Disch Hosp >30min
[2023-08-12 17:09] LABS: Bedside Glucose 216 mg/dL (74-106)
[2023-08-12] MEDS: Carvedilol 3.125 MG TABLET 6.25 MG PO (18:21)
== END 2023-08-12 19:57 | disposition home or self-care (01) | DRG 190 ==
LOC: ED 19:59 → PCU 20:46
PROVIDERS: Admitting Provider Hospitalist; Emergency Provider Emergency Medicine; PCP Nurse Practitioner Family; Visit Provider Family Medicine
DX: I21.4 Non-ST elevation (NSTEMI) myocardial infarction (principal); E11.65 Type 2 diabetes mellitus with hyperglycemia; I45.10 Unspecified right bundle-branch block; I10 Essential (primary) hypertension; E87.6 Hypokalemia; R42 Dizziness and giddiness; Z86.73 Personal history of transient ischemic attack (TIA), and cerebral infarction without residual deficits; Z82.49 Family history of ischemic heart disease and other diseases of the circulatory system
CPT/HCPCS: 36415; 71045; 71275; 80048; 80053; 80061; 81001; 82962; 84484; 84703; 85025; 85027; 85379; 85610; 85730; 93005; 93306; 93458; 99152; 99153; 99285; J7030; Q9957; Q9967; A4216; C1769; C1894; C8929

== ENCOUNTER → 2023-09-21 | Outpatient (CLI) | payer MEDICAID, SELFPAY ==
[2023-09-21 16:47] LABS: Absolute Lymphocyte Count 1.27 X10^3/uL (0.83-4.51); Absolute Neutrophil Count 3.2 X10^3/uL (2.0-7.7); Basophil# 0.03 X10^3/uL; Basophil% 0.5 % (0-1); Eosinophil# 0.15 X10^3/uL; Eosinophils% 2.7 % (0-5); Hematocrit 39.8 % (37-47); Lymphocyte # 1.27 X10^3/ul (0.83-4.51); Lymphocyte % 23.3 % (19-41); Mean Corp Hgb Conc 30.2 g/dL (32-36); Mean Corpuscular Volume 82.9 fL (81-99); Mean Platelet Vol. 10.3 fl (6.2-12.0); Monocyte# 0.76 X10^3/uL; Monocyte% 13.9 % (0-10); NRBC Flagged by Analyzer 0 % (0-5); Neutrophil # 3.17 X10^3/uL (2.7-7.7); Neutrophil % 58.1 % (47-70); Platelet Count 362 K/mm3 (150-450); RBC Distribution Width CV 14.8 % (11.6-14.6); RBC Distribution Width SD 44.7 fl (35.1-43.9); White Blood Count 5.5 K/mm3 (4.4-11.0)
[2023-09-21 17:03] LABS: Anion Gap 7 (5-15); BUN 11 mg/dL (7-18); Calcium,Total 8.7 mg/dL (8.5-10.1); Chloride 108 mmol/L (98-107); EST Glomerular Filtration Rate 65 mL/min (>60); Est Glom Filt Rate - Afr Amer 78 mL/min (>60); Glucose 217 mg/dL (74-106); Potassium 3.8 mmol/L (3.5-5.1); Sodium Level 139 mmol/L (136-145)
[2023-09-21 17:05] LABS: BNP,B-Type NATRIURETIC PEPTIDE 463.1 pg/mL (0-100)
== END | disposition home or self-care (01) ==
LOC: LAB 15:36
PROVIDERS: PCP Nurse Practitioner Family; Referring Provider Nurse Practitioner Gerontology; Visit Provider Nurse Practitioner Gerontology
DX: R06.09 Other forms of dyspnea (principal)
CPT/HCPCS: 36415; 80048; 83880; 85025

== ENCOUNTER → 2023-10-12 | Outpatient (CLI) | payer MEDICAID, SELFPAY ==
[2023-10-12 14:05] LABS: Anion Gap 5 (5-15); BUN 15 mg/dL (7-18); BUN/Creat Ratio 12.6 RATIO (10-20); Calcium,Total 8.8 mg/dL (8.5-10.1); Chloride 106 mmol/L (98-107); Creatinine, Serum 1.19 mg/dL (0.55-1.02); EST Glomerular Filtration Rate 53 mL/min (>60); Est Glom Filt Rate - Afr Amer 64 mL/min (>60); Glucose 262 mg/dL (74-106); Potassium 3.9 mmol/L (3.5-5.1); Sodium Level 138 mmol/L (136-145)
== END | disposition home or self-care (01) ==
PROVIDERS: Nurse Practitioner Gerontology; PCP Nurse Practitioner Family; Referring Provider Advanced Practice Midwife; Visit Provider Advanced Practice Midwife
DX: R06.09 Other forms of dyspnea (principal); I42.9 Cardiomyopathy, unspecified
CPT/HCPCS: 36415; 80048

== ENCOUNTER → 2024-06-07 | Outpatient (CLI) | payer MEDICAID, SELFPAY ==
--- NOTE | 2024-06-07 08:09 | ECHOL_ITS ---
Reason For Study: CM Procedure This was a limited 2D transthoracic echocardiogram. Myocardial strain analysis was performed in this exam to aid in the assessment of cardiac function. Exam performed in department. Left Ventricle Normal LV size. Mild concentric left ventricular hypertrophy. Left ventricular systolic function is lower limits of normal. The left ventricular ejection fraction is 50 %. No regional wall motion abnormalities noted. Right Ventricle Normal RV size. Normal systolic function. Atria Normal left atrium. Normal right atrium. Mitral Valve Bileaflet diffuse mitral valve thickening. Mild (1+) eccentric mitral valve insufficiency. Tricuspid Valve Normal tricuspid valve. Mild (1+) tricuspid valve insufficiency. Pulmonary artery systolic pressure is 35 mmHg. Aortic Valve Trisinus/trileaflet aortic valve. Pulmonic Valve Normal pulmonic valve. Great Vessels Normal aortic root. The pulmonary artery is normal size. Normal inferior vena cava. Pericardium/Pleural No pericardial effusion. MMode/2D Measurements & Calculations LVIDd: 5.5 cm IVSd: 1.2 cm LVAd ap4: 28.8 cm2 LVIDs: 4.1 cm LVPWd: 1.2 cm LVLd ap4: 7.9 cm FS: 23.9 % EDV(MOD-sp4): 88.5 ml EDV(sp4-el): 89.1 ml LVAs ap4: 19.0 cm2 LVLs ap4: 6.8 cm ESV(MOD-sp4): 43.7 ml ESV(sp4-el): 45.4 ml EF(MOD-sp4): 50.6 % EF(sp4-el): 49.1 % SV(MOD-sp4): 44.8 ml SV(sp4-el): 43.7 ml Time Measurements MV dec time: 0.22 sec Doppler Measurements & Calculations MV E max [place]: 106.3 cm/sec Lat Peak E' [place]: 9.3 cm/sec Med Peak E' [place]: 7.7 cm/sec MV A max [place]: 77.5 cm/sec E/E' lat: 11.4 E/E' med: 13.8 MV E/A: 1.4 MV dec slope: 473.8 cm/sec2 TR max [place]: 278.0 cm/sec TR max P.9 mmHg ECHO/Echo, Limited Study Interpretation Summary Normal LV size. Left ventricular systolic function is lower limits of normal. The left ventricular ejection fraction is 50 %. Mild concentric left ventricular hypertrophy. Mild (1+) eccentric mitral valve insufficiency. Ordering Physician: Alexia Stacy Referring Physician: Jane Morris Performed By: Romina Lynne RDCS, RVT
== END | disposition home or self-care (01) ==
LOC: CVS 08:07
PROVIDERS: PCP Nurse Practitioner Family; Referring Provider Nurse Practitioner Gerontology; Visit Provider Nurse Practitioner Gerontology
DX: I42.9 Cardiomyopathy, unspecified (principal); I51.7 Cardiomegaly
CPT/HCPCS: 93308

== ENCOUNTER 2025-07-14 23:22 | Observation (INO) | payer MEDICAID, SELFPAY ==
[2025-07-14 23:23] VITALS: BP 181/103; PULSE 102; RESP 16; TEMP 36.8; O2SAT 98; BMI 37.0
--- OUTSIDE RECORDS SUMMARY | 2025-07-14 23:58 | XMS RPT_ITS | CCD ---
Author Organization [facility] Care Team Providers Care Lining Caser Name Role Phone LEXI LISSA Hickman Unavailable Unavailable CHICO PARADA Unavailable Unavailable Augusta-Yelitza Ama Primary Care Provider [phone] Augusta-Yelitza Aam Primary Care Provider Required, No Pcp Unavailable Unavailable Marquise Pena Unavailable Unavailable Augusta-Yelitza PA-C, Ama Primary Care Provider Augusta-Yelitza PA-C, Ama Primary Care Provider Augusta-Yelitza PA-C, Ama Primary Care Provider AUGUSTA-YELITZA, AMA Primary Care Unavailabl e AUGUSTA-YELITZA, AMA Referring Unavailabl e AUGUSTA-YELITZA, AMA Primary Care Unavailabl e Arturo CELL OPERATION SUPERVISOR.Garry PERRY Primary Care Provider MD Placido Pena Emergency Provider Arturo CARD SCRAPER, CARD SCRAPER-C Garry Primary Care Provider Dr. Ha Echevarria Admit Provider [phone] Ha Echevarria Attending Provider Dr. Ha Echevarria Other Provider Dr. Damian Blanco Other Provider Dr. Damian Blanco Attending Provider Dr. Aj Colon Other Provider Dr. Aj Colon Attending Provider Trill CARD SCRAPER, CARD SCRAPER-C Garry Referring Provider MD Placido Pena Emergency Provider Trill CARD SCRAPER, CARD SCRAPER-C Garry Primary Care Provider Dr. Ha Echevarria Admit Provider Dr. Ha Echevarria Attending Provider Dr. Ha Echevarria Other Provider [phone] Damian Blanco Other Provider Dr. Damian Blanco Attending Provider Dr. Aj Colon Other Provider Dr. Aj Colon Attending Provider Trichito CARD SCRAPER, CARD SCRAPER-C Garry Referring Provider TRILL CELL OPERATION SUPERVISOR-ECONOMIC DEVELOPMENT COORDINATOR, PIERO Momin Primary Care Physician Trill CELL OPERATION SUPERVISOR.ECONOMIC DEVELOPMENT COORDINATOR, Garry C Primary Care Provider ANALI DAWSON, KRISTYN Attending Unavailable TRILL CELL OPERATION SUPERVISOR-ECONOMIC DEVELOPMENT COORDINATOR, PIERO Momin Primary Care Gabriele BRIONES MD, KRISTNY Attending Unavailable TRILL CELL OPERATION SUPERVISOR-ECONOMIC DEVELOPMENT COORDINATOR, PIERO Momin Primary Care Unavai lable TRILL CELL OPERATION SUPERVISOR-ECONOMIC DEVELOPMENT COORDINATOR, PIERO Momin Primary Care Gabriele BRIONES MD, KRISTYN Attending Unavailable ANALI DAWSON, KRISTYN Attending Unavailable TRILL CELL OPERATION SUPERVISOR-ECONOMIC DEVELOPMENT COORDINATOR, PIERO Momin Primary Care Unavai lable TRILL CELL OPERATION SUPERVISOR-ECONOMIC DEVELOPMENT COORDINATOR, PIERO Momin Primary Care Unavai lable BEITLER CELL OPERATION SUPERVISOR-CNM, JESSICA Morales Attending Unav ailable TRILL CELL OPERATION SUPERVISOR-ECONOMIC DEVELOPMENT COORDINATOR, PIERO Momin Primary Care Gabriele BRIONES MD, KRISTYN Attending Unavailable ANALI DAWSON, KRISTYN Attending Unavailable TRILL CELL OPERATION SUPERVISOR-ECONOMIC DEVELOPMENT COORDINATOR, PIERO Momin Primary Care Unavai lable TRILL, GARRY C Primary Care Unavailable TRILL GARRY C Attending Unavailable TRILL, GARRY C Referring Unavailable TRILL, GARRY C Primary Care Unavailable SELF Referring Unavailable TRILL, GARRY C Attending Unavailable TRILL, GARRY C Primary Care Unavailable EMILIA GRIFFITHS Attending Unavailable TRILL, GARRY C Primary Care Unavailable TRILL, GARRY C Referring Unavailable TRILL, GARRY C Primary Care Unavailable FEDERICO AMBRIZ Attending Unavailable TESTRAKE, EMILIA Referring Unavailable TRILL, GARRY C Primary Care Unavailable FEDERICO AMBRIZ Attending Unavailable TESTRAKE, EMILIA Referring Unavailable TRILL, GARRY C Primary Care Unavailable TESTRAKE, EMILIA Attending Unavailable TRILL, GARRY C Referring Unavailable TRILL, GARRY C Primary Care Unavailable TRILL, GARRY C Referring Unavailable TRILL, GARRY C Primary Care Unavailable TESTRAKE, EMILIA Attending Unavailable TRILL, GARRY C Primary Care Unavailable Trill CARD SCRAPER-C, Garry Primary Care Provider Trill CARD SCRAPER-C, Garry Referring Provider Roof CARD SCRAPER-C, Keenan Hickman Attending Provider Trichito CARD SCRAPER, Garry Primary Care Unavailable Maged CARD SCRAPERKeenan Attending Unavailable Trill CARD SCRAPER, Garry Referring Unavailable Trill CARD SCRAPER, Garry Primary Care Unavailable Maged CARD SCRAPERKeenan Attending Unavailable Trill CARD SCRAPER, Garry Referring Unavailable Stacy CARD SCRAPERAlexia Attending Unavailable Trill CARD SCRAPER, Garry Referring Unavailable Trill CARD SCRAPER, Garry Primary Care Unavailable Allergies Allergy Classification Reported Allergen(s) Allergy Type Date of Onset Reaction(s) Facility Latex (1 source) Latex Substance Allergy Weal (disorder) [facility] Penicillins (antibiotic) (1 source) Penicillin; Translations: [penicillin] Drug Allergy Unknown (qualifier value) [facility] (20 sources) Latex; Translations: [LATEX] Propensity to adverse reactions to drug 6 Hives, Itching, Weal (disorder) [facility] Phone: (13 sources) Penicillins; Translations: [PENICILLINS] Propensity to adverse reactions to drug 1 Anaphylaxis [facility] Phone: (1 source) Metformin And Related Propensity to adverse reactions to drug 0 Diarrhea [facility] [place] (4 sources) Penicillin; Translations: [penicillin] Drug Allergy Unknown (qualifier value) [facility] (20 sources) Penicillins Drug Allergy 2 Unknown [facility] Work Phone: (5 sources) Penicillins Propensity to adverse reactions 3 UNKNOWN [facility] (12 sources) Penicillins Drug Allergy 2 Unknown [facility] Work Phone: (1 source) Latex Drug allergy (disorder) 5 [facility] (1 source) Penicillins Drug allergy (disorder) 5 [facility] Medications Current Medications Medication Drug Class(es) Dates Sig (Normalized) Sig (Original) acetaminophen 500 mg oral capsule (1 source) Start: 08-14-2021 End: 08-18-2021 take 2 capsules by mouth three times daily acetaminophen 500 mg oral capsule ; 2 cap(s) orally 3 times a day Quantity: 30 Refills: 0 Ordered: 14-Aug-2021 Marquise Pena Start: 14-Aug-2021 End: 18-Aug-2021 Generic Substitution Allowed Comments: This product contains acetaminophen. Do not use with any other product containing acetaminophen to prevent possible liver damage. Comment on above: This product contain s acetaminophen. Do not use with any other product containing acetaminophen to prevent possible liver damage. apixaban 5 mg oral tablet (11 sources) Factor Xa Inhibitor Start: 10-09-2019 take 1 tablet by mouth twice daily ELIQUIS 5 MG TABS tablet TAKE 1 TABLET BY MOUTH TWICE A DAY 60 tablet 8 10/09/2019 Active Blood Glucose Monitoring Suppl (FREESTYLE LITE) BARB (11 sources) Start: 09-21-2014 Blood Glucose Monitoring Suppl (FREESTYLE LITE) BARB 1 Device by Does not apply route daily as needed. 1 Device 0 09/21/2014 Active Blood Pressure Monitor (1 source) Start: 02-17-2023 End: 02-18-2023 Blood Pressure Monitor Indications: Primary hypertension 1 Each as directed for 1 day. 1 Kit 0 02/17/2023 02/18/2023 Active Comment on above: 1 Each as directed f or 1 day. Blood-Glucose Meter (20 sources) Start: 02-24-2023 Blood-Glucose Meter Indications: Type 2 diabetes mellitus with hyperglycemia, with long-term current use of insulin (HCC) 1 Units once daily. 1 Each 02/24/2023 Active Start: 02-24-2023 Blood-Glucose Meter Indications: Type 2 diabetes mellitus with hyperglycemia, with long-term current use of insulin (HCC) 1 Units once daily. 1 Each 0 02/24/2023 Active Start: 02-17-2023 End: 02-23-2023 Blood-Glucose Meter Indicati ons: Type 2 diabetes mellitus with hyperglycemia, with long-term current use of insulin (HCC) 1 Units once daily. 1 Each 02/17/2023 02/23/2023 Discontinued Start: 02-17-2023 End: 02-23-2023 Blood-Glucose Meter Indicati ons: Type 2 diabetes mellitus with hyperglycemia, with long-term current use of insulin (HCC) 1 Units once daily. 1 Each 0 02/17/2023 02/23/2023 Discontinued Start: 02-17-2023 Blood-Glucose Meter Indications: Type 2 diabetes mellitus with hyperglycemia, with long-term current use of insulin (HCC) 1 Units once daily. 1 Each 0 02/17/2023 Active Comment on above: 1 Units once daily. carvedilol 12.5 mg oral tablet (20 sources) alpha-Adrenergic Magnolia, beta-Adrenergic Magnolia Start: 06-07-2024 End: 06-20-2025 take 1 tablet by mouth twice daily at mealtime Carvedilol 25 mg tablet Active 25 mg PO TWICE A DAY 180 June 20, 2025 8:43am must administer with a meal/food Start: 05-17-2024 End: 06-07-2024 take 2 tablets by mouth twice daily at mealtime Carvedilol 12.5 mg tablet Discontinued 25 mg PO TWICE A DAY 180 May 17, 2024 10:26am June 07, 2024 11:15am must administer with a meal/food Start: 09-09-2023 End: 04-09-2025 take 1 tablet by mouth twice daily at mealtime carvedilol (COREG) 12.5 mg tablet Take 1 tablet by mouth two times a day with meals. 04/09/2025 Active Start: 08-12-2023 End: 09-09-2023 take 1 tablet by mouth twice daily at mealtime Carvedilol (Coreg) 6.25 mg tablet Discontinued 6.25 mg PO TWICE A DAY 60 0 August 12, 2023 12:00am September 09, 2023 4:13pm must administer with a meal/food Start: 07-01-2023 End: 01-12-2024 take 1 tablet by mouth twice daily at mealtime Carvedilol 3.125 mg tablet Discontinued 3.125 mg PO TWICE A DAY August 11, 2023 12:00am August 12, 2023 11:38am must administer with a meal/food Start: 09-06-2012 End: 02-17-2023 take 1 tablet by mouth twice daily carvedilol (COREG) 12.5 mg tablet Take 1 tablet by mouth twice daily. 0 09/06/2012 02/17/2023 Discontinued carvedilol ; ora lly Quantity: 0 Refills: 0 Ordered: 01-Apr-2015 Jd Cabrera Generic Substitution Allowed Comment on above: Take 1 tablet by chioma th twice daily. 0.5 ml dulaglutide 3 mg/ml auto-injector (20 sources) GLP-1 Receptor Agonist Start: 01-12-20 End: 04-11-20 24 inject 1.5 mg by subcutaneous injection every week dulaglutide (TRULICITY) 1.5 mg/0.5 mL pen injector Indications: Type 2 diabetes mellitus without complication, without long-term current use of insulin (HCC) Inject 1.5 mg subcutaneously one time a week. 2 mL 2 01/12/2024 04/11/2024 Active Start: 10-27-2023 Trulicity Pen Dose : 1.5 mg =, Subcutaneous, 0 Refill(s) Start Date: 10/27/23 Status: Ordered Repeat number: 1 Start: 10-27-2023 Trulicity Pen Dose : 1.5 mg =, Subcutaneous, 0 Refill(s) Start Date: 10/27/23 Status: Ordered Start: 03-31-2023 End: 06-20-2025 Dulaglutide (Trulicity) 0.75 mg/0.5 mL pen injector Discontinued 0.75 mg SC EVERY WEEK August 11, 2023 12:00am June 20, 2025 8:17am End: 04-09-2025 dulaglutide (TRULICITY SUBCU TANEOUS) Inject subcutaneously. Unsure of dose 04/09/2025 Discontinued (Side Effects) dulaglutide (SEBASTIÁN LICITY SUBCUTANEOUS) Inject subcutaneously. Unsure of dose Active Comment on above: Inject 0.75 mg subcu taneously one time a week for 30 days, THEN 1.5 mg one time a week. Inject 1.5 mg subcut aneously one time a week. empagliflozin 25 mg oral tablet (20 sources) Sodium-Glucose Cotransporter 2 Inhibitor Start: 025 End: 026 take 1 tablet by mouth once daily at breakfast empagliflozin (JARDIANCE) 25 mg tablet Indications: Type 2 diabetes mellitus with hyperglycemia, without long-term current use of insulin (HCC) Take 1 tablet by mouth daily with breakfast. 90 tablet 3 12/06/2024 12/06/2025 Active Start: 08-12-2023 End: 12-13-2024 take 1 tablet by mouth once daily Empagliflozin (Jardiance) 10 mg tablet Discontinued 10 mg PO DAILY 90 90 3 June 07, 2024 11:14am December 13, 2024 4:20pm Comment on above: Take by mouth. enteric contrast (will be provided with radiology test) (1 source) Start: 3 End: 3 enteric contrast (will be provided with radiology test) For CT ABD/PEL W IVCON Routine order Administer, As Directed One Time Only, via Oral, Rectal, both Oral and Rectal, Enteric Tube, Stoma or Indwelling Catheter, Enteric Contrast as designated per enteric contrast guidelines 1 Each 0 09/16/2023 09/17/2023 Active Comment on above: For CT ABD/PEL W IVC ON Routine order Administer, As Directed One Time Only, via Oral, Rectal, both Oral and Rectal, Enteric Tube, Stoma or Indwelling Catheter, Enteric Contrast as designated per enteric contrast guidelines fluconazole 150 mg oral tablet (1 source) Azole Antifungal Start: 1 fluconazole (DIFLUCAN) 150 MG tablet Take 1 tablet every 2 days for 3 doses. 3 tablet 2 12/13/2020 Active furosemide 40 mg oral tablet (20 sources) Loop Diuretic Start: 3 End: 5 take 1 tablet by mouth once daily furosemide (LASIX) 40 mg tablet Take 1 tablet by mouth once daily. 04/09/2025 Active Lasix ; orally Q uantity: 0 Refills: 0 Ordered: 01-Apr-2015 Jd Cabrera Generic Substitution Allowed ibuprofen 400 mg oral tablet (2 sources) Nonsteroidal Anti-inflammatory Drug Start: 08-14-2021 End: 08-18-2021 take 1 tablet by mouth three times daily at mealtime ibuprofen 400 mg oral tablet ; 1 tab(s) orally 3 times a day Quantity: 15 Refills: 0 Ordered: 14-Aug-2021 Marquise Pena Start: 14-Aug-2021 End: 18-Aug-2021 Generic Substitution Allowed Comments: Do not take this drug if you are .It is very important that you take or use this exactly as directed. Do not skip doses or discontinue unless directed by your doctor.May cause drowsiness or dizziness.Obtain medical advice before taking any non-prescription drugs as some may affect the action of this medication.Take with food or milk. Start: 09-27-2012 End: 02-17-2023 take 1 tablet by mouth every six hours ibuprofen 600 mg tablet Take 1 tablet by mouth every 6 hours. 30 tablet 0 09/27/2012 02/17/2023 Discontinued Comment on above: Do not take this ellie g if you are .It is very important that you take or use this exactly as directed. Do not skip doses or discontinue unless directed by your doctor.May cause drowsiness or dizziness.Obtain medical advice before taking any non-prescription drugs as some may affect the action of this medication.Take with food or milk. Take 1 tablet by chioma th every 6 hours. 3 ml insulin lispro 100 unt/ml pen injector (11 sources) Insulin Analog Start: 05-26-2021 insulin lispro, 1 Unit Dial, 100 UNIT/ML SOPN INJECT 20 UNITS INTO THE SKIN 3 TIMES DAILY (BEFORE MEALS) 15 pen 0 05/26/2021 Active Start: 11-19-2020 insulin lispro , 1 Unit Dial, (HUMALOG KWIKPEN) 100 UNIT/ML SOPN Inject 20 Units into the skin 3 times daily (before meals) 5 pen 3 11/19/2020 Active Start: 05-23-2019 insulin lispro (HUMALOG KWIKPEN) 100 UNIT/ML pen 20 units at each meals 15 pen 3 05/23/2019 Active Start: 05-23-2019 insulin lispro (HUMALOG KWIKPEN) 100 UNIT/ML pen 20 units at each meals 15 pen 3 05/23/2019 Active iv contrast (will be provide d with radiology test) (3 sources) Start: 10-06-2023 End: 10-07-2023 iv contrast (will be provide d with radiology test) MRI Liver Inject, intravenously, once for 1 dose. No IV access, insert saline lock prior to the beginning of sedation, infusion, injection of imaging exam. Discontinue saline lock post exam. If Pt. has a central line or IVAD, may access for administration according to line specific nursing protocol. Once exam is complete flush line and de-access according to line specific nursing protocol in the MR contrast administration guidelines link. 1 Each 0 10/06/2023 10/07/2023 Active Start: 09-16-2023 End: 09-17-2023 iv contrast (will be provide d with radiology test) CT ABD/PEL -Inject, intravenously, once for 1 dose.No IV access, insert saline lock prior to the beginning of sedation, infusion, injection of imaging exam. Discontinue saline lock post exam. If Pt. has a central line or IVAD, may access for administration according to line specific nursing protocol. Once exam is complete flush line and de-access according to line specific nursing protocol in the CT contrast administration guidelines link. 1 Each 0 09/16/2023 09/17/2023 Active Comment on above: CT ABD/PEL -Inject, intravenously, once for 1 dose.No IV access, insert saline lock prior to the beginning of sedation, infusion, injection of imaging exam. Discontinue saline lock post exam. If Pt. has a central line or IVAD, may access for administration according to line specific nursing protocol. Once exam is complete flush line and de-access according to line specific nursing protocol in the CT contrast administration guidelines link. MRI Liver Inject, in travenously, once for 1 dose. No IV access, insert saline lock prior to the beginning of sedation, infusion, injection of imaging exam. Discontinue saline lock post exam. If Pt. has a central line or IVAD, may access for administration according to line specific nursing protocol. Once exam is complete flush line and de-access according to line specific nursing protocol in the MR contrast administration guidelines link. lisinopril 20 mg oral tablet (20 sources) Angiotensin Converting Enzyme Inhibitor Start: take 1 tablet by mouth twice daily lisinopril (ZESTRIL) 20 mg tablet Take 1 tablet by mouth two times a day. 180 tablet 06/29/2025 Active Start: 10-27-2023 End: 06-28-2025 take 1 tablet by mouth twice daily lisinopril (ZESTRIL) 20 mg tablet Take 1 tablet by mouth two times a day. 180 tablet 06/26/2025 06/28/2025 Discontinued Start: 09-09-2023 End: 12-13-2024 take 1 tablet by mouth once daily Lisinopril 20 mg tablet Discontinued 20 mg PO DAILY 90 90 3 June 07, 2024 11:14am December 13, 2024 4:44pm Start: 08-12-2023 End: 09-09-2023 take 1 tablet by mouth once daily Lisinopril 10 mg Tablet Discontinued 10 mg PO DAILY 30 30 0 August 12, 2023 12:00am September 09, 2023 4:13pm Start: 07-01-2023 End: 01-12-2024 take 1 tablet by mouth once daily Lisinopril 5 mg tablet Discontinued 5 mg PO DAILY August 11, 2023 12:00am August 12, 2023 11:38am lisinopril ; ora lly Quantity: 0 Refills: 0 Ordered: 01-Apr-2015 Jd Cabrera Generic Substitution Allowed Comment on above: Take 1 tablet by chioma th once daily. losartan potassium 25 mg oral tablet (3 sources) Angiotensin 2 Receptor Magnolia Start: 11-08-20 take 1 tablet by mouth once daily losartan (COZAAR) 25 MG tablet Take 1 tablet by mouth daily 30 tablet 6 11/08/2020 Active metFORMIN (1 source) Biguanide metFORMIN ; oral ly Quantity: 0 Refills: 0 Ordered: 01-Apr-2015 Jd Cabrera Generic Substitution Allowed Multivitamin preparation (1 source) Start: 05-10-20 24 take 1 tablet by mouth once daily Multivitamin Dose = 1 tab(s), Oral, Daily, 0 Refill(s) Start Date: 05/10/24 Status: Ordered naproxen 500 mg oral tablet (1 source) Nonsteroidal Anti-inflammatory Drug Start: 07-10-20 End: 07-20-20 take 1 tablet by mouth in the morning naproxen (NAPROSYN) 500 MG tablet Take 1 tablet by mouth in the morning and 1 tablet before bedtime. Do all this for 20 doses. 20 tablet 0 07/10/2022 07/20/2022 Active perflutren lipid microspheres 1.3 mL in NaCl (PF) 0.9% 10 mL injection (DEFINITY) (16 sources) Start: 05-05-20 End: 08-03-20 perflutren lipid microspheres 1.3 mL in NaCl (PF) 0.9% 10 mL injection (DEFINITY) rosuvastatin calcium 10 mg oral tablet (20 sources) HMG-CoA Reductase Inhibitor Start: 12-11-19 End: 12-11-19 take 1 tablet by mouth once daily at bedtime rosuvastatin (CRESTOR) 10 mg tablet Indications: Type 2 diabetes mellitus with hyperglycemia, without long-term current use of insulin (HCC) , History of embolic stroke , History of myocardial infarction Take 1 tablet by mouth daily at bedtime. 90 tablet 3 12/11/2024 12/11/2025 Active Start: 02-21-2023 End: 02-22-2024 take 1 tablet by mouth once daily at bedtime rosuvastatin (CRESTOR) 10 mg tablet Indications: Cerebrovascular accident (CVA) due to embolism of left middle cerebral artery (HCC) , Hyperlipidemia, mixed Take 1 tablet by mouth daily at bedtime. 90 tablet 3 02/22/2023 05/05/2023 Discontinued (Course of therapy completed) Comment on above: Take 1 tablet by chioma th daily at bedtime. SITagliptin 100 mg oral tablet (9 sources) Dipeptidyl Peptidase 4 Inhibitor Start: 04-09-20 End: 10-06-20 take 1 tablet by mouth once daily SITagliptin phosphate (JANUVIA) 100 mg tablet Indications: Type 2 diabetes mellitus with hyperglycemia, without long-term current use of insulin ([facility]) Take 1 tablet by mouth once daily. 90 tablet 1 04/09/2025 10/06/2025 Active 125 ml sodium chloride 9 mg/ml prefilled syringe (16 sources) Start: 05-05-20 End: 08-03-20 sodium chloride 0.9 % (flush) 10 mL (BD POSIFLUSH) Spironolactone (1 source) Aldosterone Antagonist spironolactone ; orally Quantity: 0 Refills: 0 Ordered: 01-Apr-2015 Jd Cabrera Generic Substitution Allowed terconazole 4 mg/ml vaginal cream (8 sources) Azole Antifungal Start: 11-17-20 terconazole (TERAZOL 7) 0.4 % vaginal cream INSERT 1 APPLICATORFUL VAGINALLY ONCE AT BEDTIME FOR 7 NIGHTS 45 g 0 11/17/2019 Active Completed/Discontinued Medications Medication Drug Class(es) Dates Sig (Normalized) Sig (Original) aspirin 81 mg delayed release oral tablet (3 sources) Platelet Aggregation Inhibitor, Nonsteroidal Anti-inflammatory Drug Start: 09-09-2023 End: 09-09-2023 take 1 tablet by mouth once daily Aspirin (Adult Aspirin Regimen) 81 mg tablet,delayed release (DR/EC) Discontinued 81 mg PO DAILY September 09, 2023 12:00am September 09, 2023 4:12pm atorvastatin 10 mg oral tablet (16 sources) HMG-CoA Reductase Inhibitor Start: 05-05-2023 End: 01-12-2024 take 1 tablet by mouth once daily atorvastatin (LIPITOR) 10 mg tablet Indications: Peripartum cardiomyopathy, , Hyperlipidemia, unspecified hyperlipidemia type Take 1 tablet by mouth once daily. 90 tablet 3 05/05/2023 01/12/2024 Discontinued Start: 04-24-2021 take 1 tablet by chioma th once daily atorvastatin (LIPITOR) 10 MG tablet Indications: Dyslipidemia TAKE 1 TABLET BY MOUTH EVERY DAY 90 tablet 2 04/24/2021 Active Start: 11-08-2020 take 1 tablet by chioma th once daily atorvastatin (LIPITOR) 10 MG tablet Take 1 tablet by mouth daily 30 tablet 6 11/08/2020 Active Comment on above: Take 1 tablet by chioma th once daily. benzonatate 100 mg oral capsule (5 sources) Non-narcotic Antitussive Start: 023 End: 024 take 100-200 mg by mouth every eight hours as needed benzonatate (TESSALON PERLES) 100 mg capsule Take 1-2 capsules by mouth three times a day as needed. 45 capsule 0 09/21/2023 01/12/2024 Discontinued Comment on above: Take 1-2 capsules by mouth three times a day as needed. doxycycline hyclate 100 mg oral capsule (1 source) Tetracycline-class Drug Start: 015 End: 015 take 1 capsule by mouth twice daily doxycycline hyclate 100 mg oral capsule ; 1 orally 2 times a day Quantity: 6 Refills: 0 Ordered: 01-Apr-2015 Patel Mitchell Start: 01-Apr-2015 End: 04-Apr-2015 Generic Substitution Allowed Comments: Avoid prolonged or excessive exposure to direct and/or artificial sunlight while taking this medication.Do not take this drug if you are .Finish all this medication unless otherwise directed by prescriber.Medication should be taken with plenty of water. Comment on above: Avoid prolonged or e xcessive exposure to direct and/or artificial sunlight while taking this medication.Do not take this drug if you are .Finish all this medication unless otherwise directed by prescriber.Medication should be taken with plenty of water. dulaglutide (TRULICITY) 3 mg/0.5 mL pen injector (6 sources) Start: 024 End: 025 inject 3 mg by subcutaneous injection every week dulaglutide (TRULICITY) 3 mg/0.5 mL pen injector Indications: Type 2 diabetes mellitus without complication, without long-term current use of insulin (HCC) Inject 3 mg subcutaneously one time a week. 2 mL 2 02/16/2024 12/06/2024 Discontinued (Side Effects) Start: 02-16-2024 inject 3 mg by subcu taneous injection every week dulaglutide (TRULICITY) 3 mg/0.5 mL pen injector Indications: Type 2 diabetes mellitus without complication, without long-term current use of insulin (HCC) Inject 3 mg subcutaneously one time a week. 2 mL 2 02/16/2024 Active Start: 02-16-2024 End: 05-16-2024 inject 3 mg by subcutaneous injection every week dulaglutide (TRULICITY) 3 mg/0.5 mL pen injector Indications: Type 2 diabetes mellitus without complication, without long-term current use of insulin (HCC) Inject 3 mg subcutaneously one time a week. 2 mL 2 02/16/2024 05/16/2024 Active 0.4 ml enoxaparin sodium 100 mg/ml prefilled syringe (1 source) Low Molecular Weight Heparin Start: 09-06-2012 End: 02-17-2023 inject 0.4 mL by subcutaneous injection twice daily enoxaparin (LOVENOX) 40 mg/0.4 mL Syrg Inject 0.4 mL subcutaneously twice daily. Inject entire contents of one(1) syringe 0 09/06/2012 02/17/2023 Discontinued Comment on above: Inject 0.4 mL subcutaneously twice daily . Inject entire contents of one(1) syringe ferrous sulfate 325 mg oral tablet (1 source) Start: 09-06-2012 End: 02-17-2023 take 1 tablet by mouth three times daily Ferrous Sulfate 325 mg (65 mg iron) tablet Take 1 tablet by mouth three times daily. 0 09/06/2012 02/17/2023 Discontinued Comment on above: Take 1 tablet by mouth three times daily . 3 ml insulin glargine 100 unt/ml pen injector (20 sources) Insulin Analog Start: 08-20-2023 End: 02-16-2024 inject 60 [IU] by subcutaneous injection once daily at bedtime insulin glargine 100 unit/mL (3 mL) Indications: Type 2 diabetes mellitus without complication, without long-term current use of insulin (HCC) Inject 60 Units subcutaneously daily at bedtime. 18 mL 5 08/20/2023 02/16/2024 Active Start: 08-20-2023 End: 02-16-2024 inject 60 [IU] by subcutaneous injection once daily at bedtime insulin glargine 100 unit/mL (3 mL) Indications: Type 2 diabetes mellitus without complication, without long-term current use of insulin (HCC) Inject 60 Units subcutaneously daily at bedtime. 18 mL 5 08/20/2023 01/15/2024 Discontinued Start: 02-17-2023 End: 05-05-2023 inject 60 [IU] by subcutaneous injection once daily at bedtime insulin glargine 100 unit/mL (3 mL) Inject 60 Units subcutaneously daily at bedtime. 18 mL 2 02/17/2023 05/05/2023 Discontinued (Course of therapy completed) Start: 02-17-2023 End: 05-18-2023 inject 60 [IU] by subcutaneous injection once daily at bedtime insulin glargine 100 unit/mL (3 mL) Inject 60 Units subcutaneously daily at bedtime. 18 mL 2 02/17/2023 05/05/2023 Discontinued (Course of therapy completed) Start: 05-26-2021 LANTUS SOLOSTA R 100 UNIT/ML injection pen INJECT 60 UNITS INTO THE SKIN NIGHTLY 5 pen 0 05/26/2021 Active Start: 05-26-2021 End: 02-17-2023 insulin glargine 100 unit/mL (3 mL) Inject 60 Units subcutaneously. 0 05/26/2021 02/17/2023 Discontinued Start: 11-19-2020 insulin glargi ne (LANTUS SOLOSTAR) 100 UNIT/ML injection pen Inject 60 Units into the skin nightly 5 pen 3 11/19/2020 Active Start: 05-23-2019 insulin glargi ne (BASAGLAR ASHLEYIKPEN) 100 UNIT/ML injection pen 60 units at bedtime 15 pen 3 05/23/2019 Active Comment on above: Inject 60 Units subc utaneously daily at bedtime. Inject 60 Units subc utaneously. loratadine 10 mg oral tablet (20 sources) Start: 09-12-20 End: 01-12-20 take 1 tablet by mouth once daily loratadine (CLARITIN) 10 mg tablet Take 1 tablet by mouth once daily. 09/12/2021 01/12/2024 Discontinued Comment on above: Take 1 tablet by chioma th once daily. meloxicam 15 mg oral tablet (10 sources) Nonsteroidal Anti-inflammatory Drug Start: 02-18-20 End: 03-19-20 take 1 tablet by mouth once daily meloxicam (MOBIC) 15 mg tablet Indications: Chronic right shoulder pain Take 1 tablet by mouth once daily. 30 tablet 02/17/2023 03/19/2023 Comment on above: Take 1 tablet by chioma th once daily. 0.25 mg, 0.5 mg dose 1.5 ml semaglutide 1.34 mg/ml pen injector (1 source) Start: 02-22-20 End: 02-23-20 semaglutide (OZEMPIC) 0.25 mg or 0.5 mg(2 mg/1.5 mL) pen Indications: Type 2 diabetes mellitus with hyperglycemia, with long-term current use of insulin (HCC) , Obesity, Class II, BMI 35-39.9 Inject 0.25 mg subcutaneously one time a week. 1 mL 2 02/21/2023 02/22/2023 Discontinued Comment on above: Inject 0.25 mg subcu taneously one time a week. semaglutide (OZEMPIC) 0.25 mg or 0.5 mg (2 mg/3 mL) pen (18 sources) Start: 12-06-19 End: 01-09-20 semaglutide (OZEMPIC) 0.25 mg or 0.5 mg (2 mg/3 mL) pen Indications: Type 2 diabetes mellitus with hyperglycemia, without long-term current use of insulin (HCC) Inject 0.25 mg subcutaneously one time a week. 3 mL 2 12/06/2024 01/09/2025 Discontinued ( Patient) Start: 12-06-2024 End: 06-04-2025 semaglutide (OZEMPIC) 0.25 m g or 0.5 mg (2 mg/3 mL) pen Indications: Type 2 diabetes mellitus with hyperglycemia, without long-term current use of insulin (HCC) Inject 0.25 mg subcutaneously one time a week. 3 mL 2 12/06/2024 06/04/2025 Active Start: 03-23-2023 End: 03-31-2023 semaglutide (OZEMPIC) 0.25 m g or 0.5 mg (2 mg/3 mL) pen Indications: Type 2 diabetes mellitus with hyperglycemia, with long-term current use of insulin (HCC) , Obesity, Class II, BMI 35-39.9 Inject 0.25 mg subcutaneously one time a week. 3 mL 1 03/23/2023 03/31/2023 Discontinued Start: 03-23-2023 End: 06-21-2023 semaglutide (OZEMPIC) 0.25 m g or 0.5 mg (2 mg/3 mL) pen Indications: Type 2 diabetes mellitus with hyperglycemia, with long-term current use of insulin (HCC) , Obesity, Class II, BMI 35-39.9 Inject 0.25 mg subcutaneously one time a week. 3 mL 1 03/23/2023 06/21/2023 Active Start: 02-22-2023 End: 03-23-2023 semaglutide (OZEMPIC) 0.25 m g or 0.5 mg (2 mg/3 mL) pen Indications: Type 2 diabetes mellitus with hyperglycemia, with long-term current use of insulin (HCC) , Obesity, Class II, BMI 35-39.9 Inject 0.25 mg subcutaneously one time a week. 3 mL 1 02/22/2023 03/23/2023 Discontinued Start: 02-22-2023 End: 05-23-2023 semaglutide (OZEMPIC) 0.25 m g or 0.5 mg (2 mg/3 mL) pen Indications: Type 2 diabetes mellitus with hyperglycemia, with long-term current use of insulin (HCC) , Obesity, Class II, BMI 35-39.9 Inject 0.25 mg subcutaneously one time a week. 3 mL 1 02/22/2023 05/23/2023 Active Start: 02-22-2023 End: 02-22-2023 semaglutide (OZEMPIC) 0.25 m g or 0.5 mg (2 mg/3 mL) pen Indications: Type 2 diabetes mellitus with hyperglycemia, with long-term current use of insulin (HCC) , Obesity, Class II, BMI 35-39.9 Inject 0.25 mg subcutaneously one time a week. 3 mL 1 02/22/2023 02/22/2023 Discontinued Comment on above: Inject 0.25 mg subcu taneously one time a week. warfarin sodium 7.5 mg oral tablet (2 sources) Vitamin K Antagonist Start: 2 End: take 1 tablet by mouth once daily warfarin (COUMADIN) 7.5 mg tablet Take 1 tablet by mouth once daily. 0 10/11/2012 02/17/2023 Discontinued Coumadin ; orall y Quantity: 0 Refills: 0 Ordered: 01-Apr-2015 Jd Cabrera Generic Substitution Allowed Comment on above: Take 1 tablet by chioma th once daily. Problems Active Problems Problem Classification Problem Date Documented Da te Episodic/Chronic Abdominal pain (12 sources) Epigastric pain; Translations: [Epigastric pain] Onset: 01-07-2012 01-07-2012 Episodic Acute cerebrovascular disease (20 sources) Cerebral artery occlusion; Translations: [Embolic stroke] Onset: 11-12-2011 Resolved: 06-14-2019 08-30-2012 Chronic Acute myocardial infarction (20 sources) Myocardial infarction; Translations: [Non-ST elevation (NSTEMI) myocardial infarction] Onset: 08-12-2023 08-11-2023 Chronic Blindness and vision defects (1 source) Wears glasses; Translations: [Presence of spectacles and contact lenses] Episodic Conditions associated with dizziness or vertigo (10 sources) Lightheadedness; Translations: [Dizziness and giddiness] 08-11-2023 Episodic Conduction disorders (20 sources) Right bundle branch block; Translations: [Unspecified right bundle-branch block] Onset: 02-25-2018 02-25-2018 Chronic Contraceptive and procreative management (1 source) Intrauterine contraceptive device in situ; Translations: [Presence of (intrauterine) contraceptive device] 04-09-2025 Episodic Coronary atherosclerosis and other heart disease (2 sources) History of myocardial infarction; Translations: [Old myocardial infarction] Onset: 12-06-2024 12-06-2024 Chronic Diabetes mellitus with complications (11 sources) Type 2 diabetes mellitus; Translations: [Type 2 diabetes mellitus with hyperglycemia] Onset: 09-05-2012 Chronic Diabetes mellitus without complication (1 source) Diabetes mellitus without complication Onset: 08-02-2017 Disorders of lipid metabolism (20 sources) Dyslipidemia; Translations: [Hyperlipidemia, unspecified] Onset: 02-25-2018 02-25-2018 Chronic Essential hypertension (20 sources) Essential hypertension; Translations: [Essential (primary) hypertension] Onset: 02-25-2018 02-25-2018 Chronic Menstrual disorders (2 sources) Menorrhagia; Translations: [Excessive and frequent menstruation with regular cycle] Chronic Nonspecific chest pain (4 sources) Chest pain; Translations: [Chest pain, unspecified] 08-14-2021 Episodic Comment on above: CHEST PAIN Other complications of ; puerperium affecting management of mother (5 sources) 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; Translations: [Peripartum cardiomyopathy] 08-12-2023 Episodic Other complications of ; puerperium affecting management of mother (7 sources) Peripartum cardiomyopathy; Translations: [Peripartum cardiomyopathy, antepartum condition or complication] Onset: 09-05-2012 08-12-2023 Episodic Other connective tissue disease (1 source) Metatarsalgia of left foot; Translations: [Metatarsalgia, left foot] Episodic Other connective tissue disease (15 sources) Pain of left heel; Translations: [Pain in left foot] Onset: 04-11-2025 12-06-2024 Episodic Other connective tissue disease (14 sources) Plantar fasciitis; Translations: [Plantar fascial fibromatosis] Onset: 04-11-2025 01-09-2025 Episodic Other connective tissue disease (1 source) Plantar fasciitis of left foot; Translations: [Plantar fascial fibromatosis] 04-09-2025 Episodic Other connective tissue disease (2 sources) Pain in left foot; Translations: [Pain of left heel] Onset: 12-06-2024 Episodic Other connective tissue disease (1 source) Plantar fascial fibromatosis; Translations: [Plantar fasciitis] Onset: 04-11-2025 Episodic Other gastrointestinal disorders (3 sources) Ascites; Translations: [Other ascites] 09-13-2023 Episodic Other gastrointestinal disorders (1 source) Right upper quadrant abdominal mass; Translations: [Right upper quadrant abdominal swelling, mass and lump] 09-16-2023 Episodic Other gastrointestinal disorders (2 sources) Finding of abdominopelvic segment of trunk; Translations: [Intra-abdominal and pelvic swelling, mass and lump, unspecified site] 09-16-2023 Episodic Other liver diseases (1 source) Lesion of liver; Translations: [Liver disease, unspecified] 10-06-2023 Chronic Other liver diseases (1 source) Steatosis of liver; Translations: [Fatty (change of) liver, not elsewhere classified] 01-15-2024 Chronic Other lower respiratory disease (14 sources) Dyspnea on exertion; Translations: [Dyspnea, unspecified] Onset: 01-07-2012 01-07-2012 Episodic Other lower respiratory disease (2 sources) Nodule of lung; Translations: [Solitary pulmonary nodule] 10-09-2024 Episodic Other non-traumatic joint disorders (3 sources) Chronic pain of right upper limb; Translations: [Pain in right shoulder] Episodic Other nutritional; endocrine; and metabolic disorders (20 sources) Obesity; Translations: [Obesity, unspecified] Onset: 05-03-2012 05-03-2012 Chronic Other nutritional; endocrine; and metabolic disorders (11 sources) Morbid obesity; Translations: [Morbid (severe) obesity due to excess calories] Onset: 11-02-2015 11-02-2015 Chronic Other nutritional; endocrine; and metabolic disorders (2 sources) Obese class II; Translations: [Obesity, unspecified] Chronic Other skin disorders (2 sources) Nodule of skin of left foot; Translations: [Localized swelling, mass and lump, left lower limb] 12-06-2024 Episodic Terrie-; endo-; and myocarditis; cardiomyopathy (except that caused by tuberculosis or sexually transmitted disease) (8 sources) Dilated cardiomyopathy; Translations: [Dilated cardiomyopathy] Onset: 08-12-2023 07-01-2023 Chronic Pulmonary heart disease (20 sources) Pulmonary hypertension; Translations: [Pulmonary hypertension, unspecified] Onset: 01-01-2015 01-01-2015 Chronic Thyroid disorders (20 sources) Goiter; Translations: [Multinodular goiter] Onset: 09-05-2012 08-05-2017 Chronic Unclassified (1 source) Oth cause of strike by thrown, projected or fall obj, init / W20.8XXA(ICD-9) Onset: 08-02-2017 Unclassified (1 source) Pain in right foot / M79.671(ICD-9) Onset: 08-02-2017 Unclassified (1 source) Cardiomyopathy, unspecified / I42.9(ICD-9) Onset: 08-02-2017 Unclassified (1 source) Prsnl hx of TIA (TIA), and cereb infrc w/o resid deficits / Z86.73(ICD-9) Onset: 08-02-2017 Unclassified (1 source) Unspecified sprain of right foot, initial encounter / S93.601A(ICD-9) Onset: 08-02-2017 Unclassified (1 source) prison (current) use of insulin / Z79.4(ICD-9) Onset: 08-02-2017 Unclassified (1 source) Allergy status to penicillin / Z88.0(ICD-9) Onset: 08-02-2017 Unclassified (1 source) Other specified soft tissue disorders / M79.89(ICD-9) Onset: 08-02-2017 Unclassified (1 source) hooker off (current) use of anticoagulants / Z79.01(ICD-9) Onset: 08-02-2017 Unclassified (9 sources) H/O: medical termination of ; Translations: [Status post elective ] Onset: 10-12-2012 10-12-2012 Unclassified (9 sources) Anticoagulant effect; Translations: [Warfarin anticoagulation] Onset: 11-12-2011 11-12-2011 Unclassified (20 sources) Type 2 diabetes mellitus without complication; Translations: [Uncontrolled diabetes mellitus type 2 without complications] Onset: 05-03-2012 12-29-2016 Past or Other Problems Problem Classification Problem Date Documented Da te Episodic/Chronic Benign neoplasm of uterus (20 sources) Uterine leiomyoma; Translations: [Leiomyoma of uterus, unspecified] Onset: 10-06-2023 10-06-2023 Episodic Deficiency and other anemia (20 sources) Iron deficiency anemia; Translations: [Iron deficiency anemia, unspecified] Onset: 11-12-2011 08-05-2017 Episodic Diabetes mellitus without complication (20 sources) Diabetes mellitus; Translations: [Type 2 diabetes mellitus without complication] Onset: 05-03-2012 Resolved: 12-11-2024 08-05-2017 Chronic Diabetes or abnormal glucose tolerance complicating ; childbirth; or the puerperium (20 sources) gestational diabetes mellitus; Translations: [Gestational diabetes mellitus in the puerperium, unspecified control] Onset: 11-12-2011 Resolved: 01-15-2024 11-12-2011 Episodic Fluid and electrolyte disorders (10 sources) Hypokalemia; Translations: [Hypokalemia] Onset: 12-13-2024 08-11-2023 Episodic Gastrointestinal hemorrhage (11 sources) Rectal hemorrhage; Translations: [Hemorrhage of anus and rectum] Onset: 11-12-2011 11-12-2011 Episodic Genitourinary symptoms and ill-defined conditions (11 sources) Abnormal urinalysis; Translations: [Unspecified abnormal findings in urine] Onset: 06-27-2014 06-27-2014 Episodic Other aftercare (11 sources) Long-term current use of anticoagulant; Translations: [prison (current) use of anticoagulants] Onset: 08-30-2012 Resolved: 06-14-2019 06-14-2019 Episodic Other aftercare (2 sources) Anticoagulant effect; Translations: [prison (current) use of anticoagulants] Onset: 11-12-2011 11-12-2011 Episodic Other circulatory disease (20 sources) Personal history of transient ischemic attack (TIA), and cerebral infarction without residual deficits; Translations: [History of embolic cerebrovascular accident] Onset: 11-29-2010 01-01-2015 Episodic Other circulatory disease (20 sources) Depression of left ventricular systolic function; Translations: [Other specified symptoms and signs involving the circulatory and respiratory systems] Onset: 08-12-2023 08-12-2023 Episodic Other circulatory disease (18 sources) History of cardiomyopathy; Translations: [Personal history of other diseases of the circulatory system] Onset: 12-11-2024 12-11-2024 Episodic Other complications of ; puerperium affecting management of mother (20 sources) cardiomyopathy; Translations: [Peripartum cardiomyopathy] Onset: 11-12-2011 08-05-2017 Episodic Other connective tissue disease (1 source) Other specified soft tissue disorders; Translations: [Other specified soft tissue disorders] Onset: 08-02-2017 Episodic Other injuries and conditions due to external causes (8 sources) H/O: injury; Translations: [History of embolic stroke] Onset: 01-01-2015 01-01-2015 Episodic Other lower respiratory disease (1 source) Solitary pulmonary nodule; Translations: [Lung nodule] Onset: 11-16-2024 Episodic Other screening for suspected conditions (not mental disorders or infectious disease) (20 sources) Patient encounter status; Translations: [Encounter for screening mammogram for malignant neoplasm of breast] Onset: 08-12-2023 Episodic Other skin disorders (2 sources) Localized swelling, mass and lump, left lower limb; Translations: [Nodule of skin of left foot] Onset: 12-06-2024 Episodic Ovarian cyst (20 sources) Cyst of right ovary; Translations: [Unspecified ovarian cyst, right side] Onset: 10-06-2023 10-06-2023 Episodic Residual codes; unclassified (2 sources) H/O: medical termination of ; Translations: [Other specified postprocedural states] Onset: 10-12-2012 10-12-2012 Episodic Screening and history of mental health and substance abuse codes (1 source) Encounter for screening for depression; Translations: [Screening for depression] Onset: 12-06-2024 Episodic Sprains and strains (20 sources) Strain of thoracic region; Translations: [Strain of muscle and tendon of back wall of thorax, initial encounter] Onset: 03-05-2016 03-08-2016 Episodic Unclassified (1 source) Pain in right foot; Translations: [Pain in right foot] Onset: 08-02-2017 Unclassified (1 source) Patient encounter status 04-09-2025 Results Test Name Value Interpretation Reference Range Facility Cardiology Visit Reporton Cardiology Visit Report [facility] [address] [place] [address] OFFICE VISIT Date of Service: 06/20/25 MR#: [id number] Acct: [id number] Name: PATT CRANE Rep #: [id number] : 1980 Provider: ODALYS venegas Age/Sex: 45/F Location[place] [facility] Status: Signed HPI HPI History of Present Illness Details: This is a 45-year-old lady who presents to the office today for a cardiovascular follow up visit. She had presented to the hospital in July of 2023 with shortness of breath and a non-ST elevation myocardial infarction. This was likely secondary to demand ischemia from elevated blood pressure as well as a cardiomyopathy. Coronary artery did not demonstrate any obstructive stenosis and her ejection fraction was estimated at 20%. She was discharged on medication. It appears that she had been diagnosed approximately 13 years ago after she had a baby with a cardiomyopathy. She acknowledges chest burning sensation with meals. This occurs 2 times per week and located midsternal and radiation to her back. This lasts for hours. This improves with antacid medication. She acknowledges fluttering sensation. She denies bilateral lower extremity edema. She denies claudication. She denies shortness of breath with activity, shortness of breath at rest, orthopnea, or PND. She denies chronic cough. She denies significant, sudden weight gain. She denies lightheadedness, dizziness, near-syncope, or syncope. She denies blood in urine, blood in stool, or epistaxis. He denies fever with chills. She denies myalgia. She denies fatigue. Her exercise level has remained stable. 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 Is patient in pain?: No Allergies latex Adverse Reaction (Mild, Verified 06/20/25 08:17) RASH Penicillins Adverse Reaction (Verified 06/20/25 08:17) UNKNOWN Medications ???Medication ???Instructions ???Recorded ???Confirmed ???Type empagliflozin 25 mg tablet 25 mg PO QDAY 12/13/24 06/20/25 Hi story (Jardiance) carvedilol 25 mg tablet 25 mg PO BID #180 tabs 06/20/25 Rx furosemide 40 mg tablet 40 mg PO DAILY PRN 06/20/25 Histo ry lisinopril 20 mg tablet 20 mg PO BID 90 days #180 tabs 06/20/25 Rx sitagliptin phosphate 100 mg 100 mg PO QDAY 06/20/25 06/20/25 H istory tablet (Januvia) Ejection fraction %: 50 Have you fallen in the past year?: No PFSH Medical History Cardiac LV ejection fraction 10-20% (08/12/23) Idiopathic cardiomyopathy (08/12/23) delivery delivered TIA (transient ischemic attack) Diabetes HTN (hypertension) Surgical History Previous section Family History Mother Diabetes Hypertension Father Diabetes Hypertension Social History household members: significant other and children housing: house Smoking Status: Never smoker alcohol intake: current alcohol intake frequency: holidays/special occasions only substance use type: does not use caffeine: Yes Type: carbonated beverages Number of servings: 3, coffee Number of servings: 1 and tea ROS Const Const: Positive for headache(s) (Wakes up most mornings with a headache that lasts about an hour); Negative for fatigue or weakness Eyes Eyes: Negative for change in vision ENT ENT: Positive for headache(s) (Wakes up most mornings with a headache that lasts about an hour); Negative for dizziness or balance problems Cardio Chest Pain: Yes Frequency: weekly (2 times per week) and other Character: other (burning) Onset: with meals Location: mid sternal (Into back) Duration: hours Relieving: other (Antacids help a little bit) Palpitations: Yes feels like its: other (fluttering) Edema: None Muscle aches with walking: None Resp Respiratory: Negative for SOB with activity, SOB at rest or SOB orthopnea SOB lying down GI GI: Negative nausea or heartburn : Negative for hematuria or frequent nighttime urination/ nocturia Musc Musc: Negative for balance problems Skin Skin: Negative non-healing lesions or rash Neuro Neuro: Positive for headache(s) (Wakes up most mornings with a headache that lasts about an hour); Negative for dizziness, lightheadedness, near syncope, syncope or weakness Endo Endo: Negative for fatigue Allergy Allergy/Immunology: Negative for rash Cardio (more content not included)... Normal [facility] [id number] 05-31-2025 [id number] HNO ID: [id number] Author: FEDERICO AMBRIZ PT Service: ? Author Type: Physical Therapist Type: [id number] Filed: 05/31/2025 15:03 Note Text: [facility] Physical Therapy Plan of Care Certification Patient Name: Patt Crane : 1980 [facility] #: [id number] Date: 05/30/2025 To: Emilia Griffiths DPM From Therapist: Federico Ambriz PT RE: Patient Certification/ Recertification Your review, approval and electronic signature are required in order to comply with Payor: [employer]ICA[employer] / Plan: [employer] / Product Type: Medicaid / regulations. The identified Physical Therapy PLAN OF CARE for the patient is as follows: M72.2 Plantar fasciitis (primary encounter diagnosis) M79.672 Pain of left heel PLAN OF CARE UPDATE: Assessment: Patt Crane demonstrates minimal improvement in rising from a chair, standing, and walking. The patient has progressed toward goals. Patient continues to present with impairments in ADL's, gait, overall function, range of motion, symptom management, and tissue tenderness that interfere with rising from a chair, standing, walking, stair negotiation, heavy exertion, physical activities, recreational activities, working . Current prognosis is Fair due to: clinical presentation, multiple co- morbidities, chronic nature of impairments, limited tolerance to activity, occupational demands . The patient will benefit from continued skilled therapy services to meet the updated goals for this plan of care as noted below. Goals updated on 05/31/2025. Goals for Episode of Care: established 04/11/25 Patient reported outcome of self-efficacy will increase T-score by a minimum 5 points. Improved [place] in home exercise program. Currently met Patient will decrease pain to 2/10 with functional activities to allow patient to improve ambulation and standing tolerance for ADLs. Not met Patient will increase active ROM of L dorsiflexion to 10 degrees to allow pt to to improve performance of ADLs. Not met Patient will demonstrate increase in intrinsic foot strength in order to improve function for basic self-care tasks, home management tasks, light functional tasks, and work tasks. Not met Perform walking for work with decreased report of symptoms/pain in 6 weeks. Not met Perform ADLs and self care without pain. Not met Normal gait. Not met Time Frame for Goals and Treatment : 07/01/25 Planned Interventions, Frequency, and Duration: 1x/week, 4 weeks Total Number of Visits Planned: 4 Patient to be seen for Therapeutic exercise (07713), Neuromuscular re-education (17287), Therapeutic activities (76279), Manual therapy (38279), Self-correction management (71683), Gait Training (69421), Patient/Family/Caregiv er Education, Body Mechanics Training PLAN FOR NEXT VISIT: Continue manual as needed, progress stretching to strength per tolerance For further details regarding this patient refer to the Physical Therapy electronically documented visit dated 05/30/2025. Provider Attestation I have reviewed the treatment plan for Patt Crane, CC# [id number] for the period of 05/30/25 -- 07/31/25, established on 05/30/2025. Signature certifies the need for therapy services. Normal [facility] CNTHERAPYon 05-30-2025 CNTHERAPY OT/PT/Speech Visit (PTWS) ROYCE,PATT ([id number]) 1980 F Date Time Provider Department 05/30/25 8:15 AM FEDERICO AMBRIZ PTWS Date Time Provider Department [place] 05/30/2025 8:15 AM [id number], SEAN PTWS Sanjuana Galeas Reason for Visit: PT Progress Note [6616] Primary Visit Diagnosis:Plantar fasciitis [M72.2] Other Visit Diagnosis:Pain of left heel [M79.672] Allergies As of Date: 05/30/2025 Noted Allergy Reaction LATEX 04/30/2016 4 - Hives 9 - Itching PENICILLINS 09/06/2012 16 - Unknown Date Reviewed: 04/30/2025 Reviewed by: Piper Williamson RN - Fully Assessed Prescriptions as of 05/31/2025 - lisinopril (ZESTRIL) 20 mg tablet Take 1 tablet by mouth two times a day. - furosemide (LASIX) 40 mg tablet Take 1 tablet by mouth once daily. - carvedilol (COREG) 12.5 mg tablet Take 1 tablet by mouth two times a day with meals. - SITagliptin phosphate (JANUVIA) 100 mg tablet Take 1 tablet by mouth once daily. - rosuvastatin (CRESTOR) 10 mg tablet Take 1 tablet by mouth daily at bedtime. - empagliflozin (JARDIANCE) 25 mg tablet Take 1 tablet by mouth daily with breakfast. - blood sugar diagnostic (BLOOD GLUCOSE TEST) test strip Patient checks sugars twice daily DX E11.65 - Lancets Patient checks sugars twice daily DX E11.65 - Blood-Glucose Meter 1 Units once daily. Lathe Sander: Addendum Therapy (PT/OT/Speech/Resp) ID: [id number] 05/30/2025 8:48 AM Author: FEDERICO AMBRIZ Signed by FEDERICO AMBRIZ PT on 05/30/2025 at 8:48 AM * * * This document replaces document [id number] * * * Document text: Program_ID:[id number] Access Code: [email or web address] URL: [email or web address]/ Date: 05-30-2025 Prepared By: Federico Ambriz Program Notes Exercises - Toe Yoga - Alternating Great Toe and Lesser Toe Extension - 1 x daily - 7 x weekly - 3 sets - 10 reps - Seated Self Great Toe Stretch - 3 x daily - 7 x weekly - 1 sets - 3 reps - Long Sitting Calf Stretch with Strap - 3 x daily - 7 x weekly - 1 sets - 3 reps - Long Sitting Soleus Stretch on Bolster with Strap - 3 x daily - 7 x weekly - 1 sets - 3 reps - Towel Scrunches - 1 x daily - 7 x weekly - 3 sets - 10 reps -- Normal [facility] THERAPY NTon 05-30-2025 THERAPY NT HNO ID: [id number] Author: FEDERICO AMBRIZ PT Service: ? Author Type: Physical Therapist Type: Therapy (PT/OT/Speech/Resp) Filed: 05/30/2025 08:48 Note Text: Program_ID:[id number] Access Code: [email or web address] URL: [email or web address]/ Date: 05-30-2025 Prepared By: Federico Ambriz Program Notes Exercises - Toe Yoga - Alternating Great Toe and Lesser Toe Extension - 1 x daily - 7 x weekly - 3 sets - 10 reps - Seated Self Great Toe Stretch - 3 x daily - 7 x weekly - 1 sets - 3 reps - Long Sitting Calf Stretch with Strap - 3 x daily - 7 x weekly - 1 sets - 3 reps - Long Sitting Soleus Stretch on Bolster with Strap - 3 x daily - 7 x weekly - 1 sets - 3 reps - Towel Scrunches - 1 x daily - 7 x weekly - 3 sets - 10 reps Normal [facility] CNCOon 05-15-2025 CNCO Letter Text Normal [facility] CNOVon 04-30-2025 CNOV Office Visit (PODIWS ) PATT CRANE ([id number]) 1980 F Date Time Provider Department 04/30/25 3:30 PM EMILIA GRIFFITHS During your visit today, we recorded the following information about you: Piper Williamson, NATHALIE 05/01/2025 8:41 AM Signed Patient presents with: Left Foot - Established Patient, Follow Up, Pain AMB ROOMING INTAKE FLOWSHEET DATA Pain Pain Level: 5 Pain Location: Foot-Left Description: Aching, Shooting, Throbbing Duration Units: Minutes Frequency: Intermittent Intervention/Comfort measure: Relaxation, Cold, Heat, Massage Patient presents for 6 week follow up of left heel pain. Received a pneumatic boot and night splint at that time. Pain has improved some, but is still there. Especially first thing in the morning and when walking after a period of rest. She has been icing and stretching. Wearing the night splint most nights. States she wore the boot when she was going to be out walking a long time. EBENEZER 03/26/25 Emilia Griffiths 04/30/2025 3:47 PM Signed What is Plantar Fasciitis? Plantar fasciitis is the most common cause of heel pain. The pain is caused by inflammation of the plantar fascia. If you strain your plantar fascia, it becomes weak, swollen and irritated (inflamed). The resulting pain may be isolated in the heel or may appear at different points on the bottom of the foot, from time to time; it may occur in one foot or both. Some think that plantar fasciitis pain is caused by irritation of nerves from tissue swelling or inflammation, but it is debatable. Plantar fasciitis is common in middle-aged people; it also occurs in younger people who are on their feet a lot, such as athletes or soldiers. The plantar fascia is a strong band of connective tissue that extends from the base of the toes, along the bottom of the foot, to the bottom of the heel (calcaneous bone); it acts like a bowstring to maintain the arch of the foot. What are heel spurs? The inflammatory reaction of the heel bone may produce spike-like projections of new bone, called heel spurs. The spurs sometimes show on X-rays. They neither cause the initial pain nor do they cause the initial problem. However, later, having to walk on spurs may cause sharp pain. What causes plantar fasciitis? Plantar fasciitis is caused by straining the ligament that supports your arch. Repeated strain can cause tiny tears in the ligament. These lead to pain and swelling. During walking, the plantar fascia experiences tension up to twice the body weight with each step. While this is normal, those who spend much time on their feet, such as nurses, two way radio installer/waiters, and mail carriers, often experience plantar fasciitis. Athletes involved in tennis or other racquet sports, race walking, jogging or running also show a higher incidence of plantar fasciitis than do those participating in other activities. Thus, it's clear that plantar fasciitis is predominantly an overuse injury. In fact, any activity that results in prolonged tension and stress on the plantar fascia may cause plantar fasciitis. It is possible that changes in footwear may play a role in causing plantar fasciitis, no matter what activity is occurring. Those who are overweight are prone to plantar fasciitis. This is true even for sedentary people who get little physical activity. Abnormalities of the foot and ankle joints may predispose some individuals to development of plantar fasciitis (specifically, over pronation of the subtalar joint). Contributing Factors * Flat feet * Toe running, hill running * Sudden weight increase * High-arched, rigid feet * Soft terrain, e.g. running on sand * Obesity * Pronated feet (rolled inward) * Sudden increase in activity * Family tendency * Poor shoe support * Worn out or poorly fitted shoes * Increasing age * Walking, standing or running for long periods of time, especially on hard surfaces. How is the Injury Treated? Rest Your Feet: Limit, or if possible, stop activities that are causing your heel pain. Try to avoid running or walking on hard surfaces, such as concrete. Use pain as your guide. If your foot is too painful, rest it. Ice: Ice the sore area for 30 to 60 minutes, several times a day, to reduce inflammation and relieve pain. Apply a plastic bag of crushed ice (or a bag of frozen peas) over a towel. Ice the sore area for 15 minutes after activity/exercise. Application of heat is not generally recommended, as heat expands the bone and connective tissue, perhaps exerting greater pressure on nerves and thereby increasing pain. If heat is used, follow it with ice. Medication: If your condition developed recently, anti-inflammatory/anal gesic medication, combined with heel pads (see below) may be all that is necessary to relieve pain and to reduce inflammation. If no pain relief has occurred after 2-3 (more content not included)... Normal [facility] [id number] 04-11-2025 [id number] HNO ID: [id number] Author: FEDERICO AMBRIZ PT Service: ? Author Type: Physical Therapist Type: [id number] Filed: 04/11/2025 13:00 Note Text: [facility] Physical Therapy Plan of Care Certification Patient Name: Patt Crane : 1980 [facility] #: [id number] Date: 04/11/2025 To: Emilia Griffiths DPM From Therapist: Federico Ambriz PT RE: Patient Certification/ Recertification Your review, approval and electronic signature are required in order to comply with Payor: [employer] / Plan: [employer] / Product Type: Medicaid / regulations. The identified Physical Therapy PLAN OF CARE for the patient is as follows: M79.672 Pain of left heel M72.2 Plantar fasciitis PLAN OF CARE: Assessment: Patt Crane presents with diagnosis of L plantar fasciitis that interferes with rising from a chair, standing, walking, stair negotiation, heavy exertion, physical activities, recreational activities, working . The patient presents with impairments in ADL's, gait, overall function, range of motion, strength, symptom management, and tissue tenderness. PROMIS? (Patient-Reported Outcomes Measurement Information System) scores were reviewed and identified as a rehabilitation concern. Prognosis for therapy is Fair due to: clinical presentation, multiple co- morbidities, chronic nature of impairments, limited tolerance to activity, occupational demands . The patient will benefit from skilled therapy services to meet the goals established for this plan of care as noted below. Goals for Episode of Care: established 04/11/25 Patient reported outcome of self-efficacy will increase T-score by a minimum 5 points. [place] in home exercise program. Patient will decrease pain to 2/10 with functional activities to allow patient to improve ambulation and standing tolerance for ADLs. Patient will increase active ROM of L dorsiflexion to 10 degrees to allow pt to to improve performance of ADLs. Patient will demonstrate increase in intrinsic foot strength in order to improve function for basic self-care tasks, home management tasks, light functional tasks, and work tasks. Perform walking for work with decreased report of symptoms/pain in 6 weeks. Perform ADLs and self care without pain. Normal gait. Time Frame for Goals and Treatment : 05/23/25 Planned Interventions, Frequency, and Duration: Current Frequency: 1x/week Duration: 6 weeks Total Number of Visits Planned: 6 Planned Treatment Interventions: Therapeutic exercise (19425), Neuromuscular re-education (12036), Manual therapy (64417), Therapeutic activities (82771), Self-correction management (55221), Gait Training (63519), Patient/Family/Caregiv er Education, Body Mechanics Training PLAN FOR NEXT VISIT: Assess HEP compliance and carry over. Given foot and ankle mechanics, she may be a candidate for custom foot orthotics Patient demonstrates good understanding of plan of care and treatment. The above goals and plan of care were discussed and agreed upon by patient/family. For further details regarding this patient refer to the Physical Therapy electronically documented visit dated 04/11/2025. Provider Attestation I have reviewed the treatment plan for Patt Crane, [facility]# [id number] for the period of 04/11/25 -- 05/23/25, established on 04/11/2025. Signature certifies the need for therapy services. Normal [facility] CNTHERAPYon 04-11-2025 CNTHERAPY OT/PT/Speech Visit (PTWS) ROCYE,PATT ([id number]) 1980 F Date Time Provider Department 04/11/25 11:15 AM FEDERICO AMBRIZ PTHIEU Date Time Provider Department [place] 04/11/2025 11:15 AM [id number], SEAN PTHIEU Galeas Reason for Visit: PT Eval [747] Visit Diagnoses:Pain of left heel [M79.672] Plantar fasciitis [M72.2] Allergies As of Date: 04/11/2025 Noted Allergy Reaction LATEX 04/30/2016 4 - Hives 9 - Itching PENICILLINS 09/06/2012 16 - Unknown Date Reviewed: 04/09/2025 Reviewed by: Garry Rodriguez APRN.ECONOMIC DEVELOPMENT COORDINATOR - Fully Assessed Prescriptions as of 04/11/2025 - lisinopril (ZESTRIL) 20 mg tablet Take 1 tablet by mouth two times a day. - furosemide (LASIX) 40 mg tablet Take 1 tablet by mouth once daily. - carvedilol (COREG) 12.5 mg tablet Take 1 tablet by mouth two times a day with meals. - SITagliptin phosphate (JANUVIA) 100 mg tablet Take 1 tablet by mouth once daily. - rosuvastatin (CRESTOR) 10 mg tablet Take 1 tablet by mouth daily at bedtime. - empagliflozin (JARDIANCE) 25 mg tablet Take 1 tablet by mouth daily with breakfast. - blood sugar diagnostic (BLOOD GLUCOSE TEST) test strip Patient checks sugars twice daily DX E11.65 - Lancets Patient checks sugars twice daily DX E11.65 - Blood-Glucose Meter 1 Units once daily. Lathe Sander: Addendum Therapy (PT/OT/Speech/Resp) ID: [id number] 04/11/2025 11:45 AM Author: FEDERICO AMBRIZ Signed by FEDERICO AMBRIZ PT on 04/11/2025 at 11:45 AM * * * This document replaces document [id number] * * * Document text: Program_ID:[id number] Access Code: [email or web address] URL: [email or web address] Date: 04-11-2025 Prepared By: Federico Ambriz Program Notes Exercises - Toe Yoga - Alternating Great Toe and Lesser Toe Extension - 1 x daily - 7 x weekly - 3 sets - 10 reps - Seated Self Great Toe Stretch - 3 x daily - 7 x weekly - 1 sets - 3 reps - Long Sitting Calf Stretch with Strap - 3 x daily - 7 x weekly - 1 sets - 3 reps - Seated Toe Towel Scrunches - 1 x daily - 7 x weekly - 3 sets - 20 reps -- Normal [facility] THERAPY NTon 04-11-2025 THERAPY NT HNO ID: [id number] Author: FEDERICO AMBRIZ PT Service: ? Author Type: Physical Therapist Type: Therapy (PT/OT/Speech/Resp) Filed: 04/11/2025 11:45 Note Text: Program_ID:[id number] Access Code: [email or web address] URL: [email or web address]://[email or web address]/ Date: 04-11-2025 Prepared By: Federico Ambriz Program Notes Exercises - Toe Yoga - Alternating Great Toe and Lesser Toe Extension - 1 x daily - 7 x weekly - 3 sets - 10 reps - Seated Self Great Toe Stretch - 3 x daily - 7 x weekly - 1 sets - 3 reps - Long Sitting Calf Stretch with Strap - 3 x daily - 7 x weekly - 1 sets - 3 reps - Seated Toe Towel Scrunches - 1 x daily - 7 x weekly - 3 sets - 20 reps Normal [facility] CNOVon 04-09-2025 CNOV Office Visit (DENISEFAMPLE) PATT CRANE ([id number]) 1980 F Date Time Provider Department 04/09/25 3:40 PM GARRY RODRIGUEZ During your visit today, we recorded the following information about you: Temperature Pulse Blood pressure Weight 98 degrees 103/minute 188/98 92.1 kg Height 1.6 m Garry Rodriguez, CELL OPERATION SUPERVISOR.[facility] 04/09/2025 4:17 PM Signed Subjective The patient consented to the use of [employer] software for draft documentation of the visit consistent with [facility]?s Notice of Privacy Practices. CHICHO Beltre is a 45-year-old female with a history of diabetes mellitus, cardiomyopathy, NSTEMI, and CVA, presenting for a diabetes follow-up. Patt is currently taking Jardiance 25 mg daily and Trulicity for diabetes management. She reports that Trulicity causes significant nausea and cold sweats, particularly after a dosage increase in January, leading her to discontinue its use. She has previously tried metformin, which caused diarrhea; glimepiride, which resulted in hypoglycemia; and Lantus insulin, which led to weight gain and was deemed ineffective. An attempt to switch to Ozempic in November was unsuccessful due to insurance coverage issues. Patt's Jardiance is prescribed by her rn stars, Keenan JARVIS, due to her history of cardiomyopathy, CVA, and NSTEMI. Her most recent visit with cardiology was on December 13, 2024. She experienced an NSTEMI in July 2023, with a cardiac catheterization revealing no obstructive stenosis and an ejection fraction of 20%. The FL was likely secondary to demand ischemia from elevated blood pressure and cardiomyopathy. Her current cardiac medications include carvedilol 25 mg BID, Jardiance 25 mg daily, Lasix 40 mg daily, and lisinopril 20 mg BID, with the latter increased in November for hypertension management. She takes her lasix as needed. She also started rosuvastatin in November 2024 and denies any side effects from this medication. Patt reports persistent left foot pain due to plantar fasciitis and a plantar medial heel spur, which has been worsening since November. She is undergoing physical therapy and uses night splints and a pneumatic boot. The pain is exacerbated by prolonged standing and heavy lifting at work, leading to lightheadedness and dyspnea. She is seeking work restrictions to limit walking and lifting to no more than 20 lbs. Recent lab results from March 22, 2025, show normal electrolytes, kidney function, liver function, and blood counts, with a slightly elevated RBC count. Phosphorus and magnesium levels were also normal. Her LDL cholesterol is at goal, measured at 70 mg/dL. I reviewed past medical, surgical, social, and family histories today and updated chart. Allergies, chronic medications, and supplements were also reviewed. 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 empagliflozin (JARDIANCE) 25 mg tablet Take 1 tablet by mouth daily with breakfast. blood sugar diagnostic (BLOOD GLUCOSE TEST) test strip Patient checks sugars twice daily DX E11.65 Lancets Patient checks sugars twice daily DX E11.65 Blood-Glucose Meter 1 Units once daily. lisinopril (ZESTRIL) 20 mg tablet Take 1 tablet by mouth two times a day. furosemide (LASIX) 40 mg tablet Take 1 tablet by mouth once daily. carvedilol (COREG) 12.5 mg tablet Take 1 tablet by mouth two times a day with meals. SITagliptin phosphate (JANUVIA) 100 mg tablet Take 1 tablet by mouth once daily. FAMILY HISTORY Problem Relation Age of Onset None Father a.unknown medical problem Stroke Mother a. hypertension, stroke, DM, renal failure None Brother one brother and 3 sisters a. [place] Social History Tobacco Use Smoking status: Never Smokeless tobacco: Never Vaping Use Vaping status: Never Used Substance Use Topics Alcohol use: Yes Comment: social Drug use: Never Review of Systems Constitutional: Negative for appetite change, chills, fatigue, fever and unexpected weight change. HENT: Negative for congestion, ear pain, rhinorrhea and sore throat. Eyes: Negative for pain, discharge, itching and visual disturbance. Respiratory: Positive for sh (more content not included)... Normal [facility] HEMOGLOBIN A1C (POC)on 04-09 HbA1c (Bld) [Mass fraction] 10.6 % Abnormal 4.3 - 5.6 % [facility] Comment on above: Location:[facility], [address] [place] [address], [id number] Point of care (POC) Hemoglobin A1c (HGBA1C) testing is intended to assess glucose control and provide a management tool for patients known to have diabetes and their healthcare providers. Target HGBA1C levels may depend on specific clinical circumstances. POC HGBA1C is not intended for use as a diagnostic or screening test; laboratory-based testing should be used for diagnostic purposes. The following information is supplemental and may not be applicable to specific diabetes management situations: The POC device case hardener provides a normal range of 4.2% to 6.5% for the HGBA1C POC test. However, the [place] [employer] guidelines indicate that patients with HGBA1C in the range of 5.7% to 6.4% are at increased risk for development of diabetes and that intervention by lifestyle modification may be beneficial. A HGBA1C level greater than or equal to 6.5% is considered diagnostic of diabetes, pending confirmatory testing. Use of HGBA1C testing to evaluate glucose control may not be appropriate for patients with hemoglobin variants or other conditions (e.g. anemia) that alter red blood cell lifespan. Interpretation and review of laboratory results Abnormal [facility] CNCOon 03-26-2025 CNCO Letter Text Normal [facility] CNOVon 03-26-2025 CNOV Office Visit (PODIWS ) PATT CRANE ([id number]) 1980 F Date Time Provider Department 03/26/25 3:30 PM EMILIA GRIFFITHS PODIWS During your visit today, we recorded the following information about you: Kristyn Coffey LPN 03/28/2025 7:50 AM Signed AMB ROOMING INTAKE FLOWSHEET DATA Pain Pain Level: 10 Pain Location: Foot-Left Description: Aching, Cramping, Sharp, Shooting Duration Amount of Time: 10 Duration Units: Months Frequency: Continuous Intervention/Comfort measure: Relaxation, Cold, Massage Comments: Pain that starts in the middle of my heel and then shoots to the outer part of my foot. Throbbing. Pain when I'm walking on it when I sit to rest and then get up again throbbing pain. Has gotten so bad that it's shooting to the side of my foot when I walk Patient presents with: Left Foot - Pain, Established Patient, Follow Up, Numbness RONNY EspinosaEmilia lfeming 03/26/2025 3:29 PM Addendum What is Plantar Fasciitis? Plantar fasciitis is the most common cause of heel pain. The pain is caused by inflammation of the plantar fascia. If you strain your plantar fascia, it becomes weak, swollen and irritated (inflamed). The resulting pain may be isolated in the heel or may appear at different points on the bottom of the foot, from time to time; it may occur in one foot or both. Some think that plantar fasciitis pain is caused by irritation of nerves from tissue swelling or inflammation, but it is debatable. Plantar fasciitis is common in middle-aged people; it also occurs in younger people who are on their feet a lot, such as athletes or soldiers. The plantar fascia is a strong band of connective tissue that extends from the base of the toes, along the bottom of the foot, to the bottom of the heel (calcaneous bone); it acts like a bowstring to maintain the arch of the foot. What are heel spurs? The inflammatory reaction of the heel bone may produce spike-like projections of new bone, called heel spurs. The spurs sometimes show on X-rays. They neither cause the initial pain nor do they cause the initial problem. However, later, having to walk on spurs may cause sharp pain. What causes plantar fasciitis? Plantar fasciitis is caused by straining the ligament that supports your arch. Repeated strain can cause tiny tears in the ligament. These lead to pain and swelling. During walking, the plantar fascia experiences tension up to twice the body weight with each step. While this is normal, those who spend much time on their feet, such as nurses, two way radio installer/waiters, and mail carriers, often experience plantar fasciitis. Athletes involved in tennis or other racquet sports, race walking, jogging or running also show a higher incidence of plantar fasciitis than do those participating in other activities. Thus, it's clear that plantar fasciitis is predominantly an overuse injury. In fact, any activity that results in prolonged tension and stress on the plantar fascia may cause plantar fasciitis. It is possible that changes in footwear may play a role in causing plantar fasciitis, no matter what activity is occurring. Those who are overweight are prone to plantar fasciitis. This is true even for sedentary people who get little physical activity. Abnormalities of the foot and ankle joints may predispose some individuals to development of plantar fasciitis (specifically, over pronation of the subtalar joint). Contributing Factors * Flat feet * Toe running, hill running * Sudden weight increase * High-arched, rigid feet * Soft terrain, e.g. running on sand * Obesity * Pronated feet (rolled inward) * Sudden increase in activity * Family tendency * Poor shoe support * Worn out or poorly fitted shoes * Increasing age * Walking, standing or running for long periods of time, especially on hard surfaces. How is the Injury Treated? Rest Your Feet: Limit, or if possible, stop activities that are causing your heel pain. Try to avoid running or walking on hard surfaces, such as concrete. Use pain as your guide. If your foot is too painful, rest it. Ice: Ice the sore area for 30 to 60 minutes, several times a day, to reduce inflammation and relieve pain. Apply a plastic bag of crushed ice (or a bag of frozen peas) over a towel. Ice the sore area for 15 minutes after activity/exercise. Application of heat is not generally recommended, as heat expands the bone and connective tissue, perhaps exerting greater pressure on nerves and thereby increasing pain. If heat is used, follow it with ice. Medication: If your condition developed recently, anti-inflammatory/anal gesic medication, combined with heel pads (see below) may be all that is necessary to relieve pain and to reduce inflammation. If no pain relief has occurred after 2-3 weeks, however, your doctor may inject either cortisone or local anesthe (more content not included)... Normal [facility] CBC panel Auto (Bld)on 03-22 Erythrocyte distribution width (RBC) [Ratio] 14.7 % Normal 11.5-15.0 [facility] Comment on above: Order Comment: Speci men Type: BLOOD SPECIMENOrdering Facility: [facility] Address: [address] [place] [address] Performed By: #### 5 8410-2 ####[facility] WADE [id number] [place] [address] [place] Hematocrit (Bld) [Volume fraction] 44.0 % Normal 36.0-46.0 [facility] Comment on above: Order Comment: Speci men Type: BLOOD SPECIMENOrdering Facility: [facility] Address: [address] [place] [address] Performed By: #### 5 8410-2 ####[facility]ITALJACE [id number] [place] [address] [place] Hemoglobin (Bld) [Mass/Vol] 14.1 g/dL Normal 11.5-15.5 [facility] Comment on above: Order Comment: Speci men Type: BLOOD SPECIMENOrdering Facility: [facility] Address: [address] [place] [address] Performed By: #### 5 8410-2 ####[facility]OSPITALJULIENNEJose Miguel [id number] [place] [address] [place] MCH (RBC) [Entitic mass] 26.6 pg Normal 26.0-34.0 [facility] Comment on above: Order Comment: Speci men Type: BLOOD SPECIMENOrdering Facility: [facility] Address: [address] [place] [address] Performed By: #### 5 8410-2 ####[facility]ITALJACE [id number] [place] [address] [place] MCHC (RBC) [Mass/Vol] 32.0 g/dL Normal 30.5-36.0 [facility] Comment on above: Order Comment: Speci men Type: BLOOD SPECIMENOrdering Facility: [facility] Address: [address] [place] [address] Performed By: #### 5 8410-2 ####[facility]ITALJULIENNELIA [id number] [place] [address] [place] MCV (RBC) [Entitic vol] 83.0 fL Normal 80.0-100.0 [facility] Comment on above: Order Comment: Speci men Type: BLOOD SPECIMENOrdering Facility: [facility] Address: [address] [place] [address] Performed By: #### 5 8410-2 ####[facility] [id number] [place] [address] [place] Nucleated RBC (Bld) [#/Vol] 10*3/uL Normal <0.01 [facility] Comment on above: Order Comment: Speci men Type: BLOOD SPECIMENOrdering Facility: [facility] Address: [address] [place] [address] Performed By: #### 5 8410-2 ####[facility] [id number] [place] [address] [place] Platelet mean volume (Bld) [Entitic vol] 9.5 fL Normal 9.0-12.7 [facility] Comment on above: Order Comment: Speci men Type: BLOOD SPECIMENOrdering Facility: [facility] Address: [address] [place] [address] Performed By: #### 5 8410-2 ####[facility] [id number] [place] [address] [place] Platelets (Bld) [#/Vol] 383 10*3/uL Normal 150-400 [facility] Comment on above: Order Comment: Speci men Type: BLOOD SPECIMENOrdering Facility: [facility] Address: [address] [place] [address] Performed By: #### 5 8410-2 ####[facility] [id number] [place] [address] [place] RBC (Bld) [#/Vol] 5.30 10*6/uL High 3.90-5.20 [facility] Comment on above: Order Comment: Speci men Type: BLOOD SPECIMENOrdering Facility: [facility] Address: [address] [place] [address] Performed By: #### 5 8410-2 ####[facility]A BEACHSavannahNCLIA [id number] [place] [address] [place] WBC (Bld) [#/Vol] 6.05 10*3/uL Normal 3.70-11.00 [facility] Comment on above: Order Comment: Speci men Type: BLOOD SPECIMENOrdering Facility: [facility] Address: [address] [place] [address] Performed By: #### 5 8410-2 ####[facility]OSPITALNCTRANA [id number] [place] [address] [place] Comprehensive metabolic 2000 panelon 03-22-2025 Albumin [Mass/Vol] 4.3 g/dL Normal 3.9-4.9 [facility] Comment on above: Order Comment: Speci men Type: BLOOD SPECIMENOrdering Facility: [facility] Address: [address] [place] [address] Performed By: #### 2 777-1, 24388-5, 78635-5 ####[facility]ITALNCLIA [id number] [place] [address] [place] ALP [Catalytic activity/Vol] 90 U/L Normal 34-123 [facility] Comment on above: Order Comment: Speci men Type: BLOOD SPECIMENOrdering Facility: [facility] Address: [address] [place] [address] Performed By: #### 2 777-1, 94020-2, 84854-2 ####[facility]OS[facility]ITALNCLIA [id number] [address] [place] ALT [Catalytic activity/Vol] 12 U/L Normal 7-38 [facility] Comment on above: Order Comment: Speci men Type: BLOOD SPECIMENOrdering Facility: [facility] Address: [address] [place], [place] [address] Performed By: #### 2 777-1, 35451-3, ####[facility] SAN[facility]UANA PARKERNCTRANA [id number] [place] [address] [place] Anion gap [Moles/Vol] 8 mmol/L Normal 8-15 [facility] Comment on above: Order Comment: Speci men Type: BLOOD SPECIMENOrdering Facility: [facility] Address: [address] [place] [address] Performed By: #### 2 777-1, 98457-8, ####[facility] FRANCISCOREINALDONCTRANA [id number] [place] [address] [place] AST [Catalytic activity/Vol] 10 U/L Low 13-35 [facility] Comment on above: Order Comment: Speci men Type: BLOOD SPECIMENOrdering Facility: [facility] Address: [address] [place] [address] Performed By: #### 2 777-1, 75063-7, ####[facility] FRANCISCOREINALDONCLIA [id number] [place] [address] [place] Bilirubin [Mass/Vol] 0.4 mg/dL Normal 0.2-1.3 [facility] Comment on above: Order Comment: Speci men Type: BLOOD SPECIMENOrdering Facility: [facility] Address: [address] [place], [place] [address] Performed By: #### 2 777-1, 04337-9, ####[facility] FRANCISCOREINALDONCLIA [id number] [place] [address] [place] Calcium [Mass/Vol] 9.5 mg/dL Normal 8.5-10.2 [facility] Comment on above: Order Comment: Speci men Type: BLOOD SPECIMENOrdering Facility: [facility] Address: [address] [place], [place] [address] Performed By: #### 2 777-1, 66352-0, ####[facility] FRANCISCOMAXWELTONNCTRANA [id number] [place] [address] [place] Chloride [Moles/Vol] 102 mmol/L Normal 98-107 [facility] Comment on above: Order Comment: Speci men Type: BLOOD SPECIMENOrdering Facility: [facility] Address: [address] [place], [place] [address] Performed By: #### 2 777-1, 05883-2, ####[facility]PITALANNMARIEA [id number] [place] [address] [place] CO2 [Moles/Vol] 26 mmol/L Normal 22-30 [facility] Comment on above: Order Comment: Speci men Type: BLOOD SPECIMENOrdering Facility: [facility] Address: [address] [place] [address] Performed By: #### 2 777-1, 98295-4, ####[facility]OSPITALNCLIA [id number] [place] [address] [place] Creatinine [Mass/Vol] 0.83 mg/dL Normal 0.58-0.96 [facility] Comment on above: Order Comment: Speci men Type: BLOOD SPECIMENOrdering Facility: [facility] Address: [address] [place], [place] [address] Performed By: #### 2 777-1, 28360-9, 11170-3 ####[facility]OSPITALNCLIA [id number] [address] [place] Creatinine and Glomerular filtration rate.predicted panel (S/P/Bld) 90 mL/min/1.73m??? Normal >=60 [facility] Comment on above: Order Comment: Speci men Type: BLOOD SPECIMENOrdering Facility: [facility] Address: [address] [place] [address] Result Comment: Wilma mated Glomerular Filtration Rate (eGFR) is calculated using the 2020 CKD-EPI creatinine equation. This equation utilizes serum creatinine, sex, and age as parameters. The creatinine assay has traceable calibration to isotope dilution-mass spectrometry. Refer to KDIGO guidelines for clinical interpretation. In patients with unstable renal function, e.g. those with acute kidney injury, the eGFR may not accurately reflect actual GFR. Performed By: #### 2 777-1, 12589-8, ####[facility] [id number] [place] [address] [place] Glucose [Mass/Vol] 207 mg/dL High 74-99 [facility] Comment on above: Order Comment: Mikki frazier Type: BLOOD SPECIMENOrdering Facility: [facility] Address: [address] [place] [address] Result Comment: The [place] Diabetes Association (ADA) provides guidance for cutoff values for fasting glucose and random glucose. The ADA defines fasting as no caloric intake for at least 8 hours. Fasting plasma glucose results between 100 to 125 mg/dL indicate increased risk for diabetes (prediabetes). Fasting plasma glucose results greater than or equal to 126 mg/dL meet the criteria for diagnosis of diabetes. In the absence of unequivocal hyperglycemia, results should be confirmed by repeat testing. In a patient with classic symptoms of hyperglycemia or hyperglycemic crisis, random plasma glucose results greater than or equal to 200 mg/dL meet the criteria for diagnosis of diabetes. Reference: Standards of Medical Care in Diabetes 2016, [place] Diabetes Association. Diabetes Care. 2016.39(Suppl 1). Performed By: #### 2 777-1, 34744-3, 78202-3 ####[facility] - CANTONLIA [id number] [place] [address] [place] Potassium [Moles/Vol] 4.4 mmol/L Normal 3.7-5.1 [facility] Comment on above: Order Comment: Mikki frazier Type: BLOOD SPECIMENOrdering Facility: [facility] Address: [address] [place] [address] Performed By: #### 2 777-1, 07544-4, 86776-9 ####[facility] FRANCISCOMAXWELTONNCLIA [id number] [place] [address] [place] Protein [Mass/Vol] 7.9 g/dL Normal 6.3-8.0 [facility] Comment on above: Order Comment: Speci men Type: BLOOD SPECIMENOrdering Facility: [facility] Address: [address] [place] [address] Performed By: #### 2 777-1, 16417-3, 08699-9 ####[facility]OSPITALJACE [id number] [place] [address] [place] Sodium [Moles/Vol] 136 mmol/L Normal 136-144 [facility] Comment on above: Order Comment: Speci men Type: BLOOD SPECIMENOrdering Facility: [facility] Address: [address] [place] [address] Performed By: #### 2 777-1, 34176-0, 07016-7 ####[facility] HOSPITALANNMARIEA [id number] [place] [address] [place] Urea nitrogen [Mass/Vol] 15 mg/dL Normal 7-21 [facility] Comment on above: Order Comment: Speci men Type: BLOOD SPECIMENOrdering Facility: [facility] Address: [address] [place] [address] Performed By: #### 2 777-1, 72470-2, 05270-0 ####[facility]OSPITALNCLIA [id number] [place] [address] [place] Lipid 1996 panelon 5 Cholesterol [Mass/Vol] 144 mg/dL Normal <200 [facility] Comment on above: Order Comment: Speci men Type: BLOOD SPECIMENOrdering Facility: [facility] Address: [address] [place] [address] Result Comment: <200 mg/dL, Desirable 200-239 mg/dL, Borderline high >239 mg/dL, High Performed By: #### 2 4331-1 ####[facility] LABCLIA [id number] [address] [address] [facility] [id number] [place], [place] [address] [place] [address] [place] Cholesterol in HDL [Mass/Vol] 60 mg/dL Normal >39 [facility] Comment on above: Order Comment: Speci men Type: BLOOD SPECIMENOrdering Facility: [facility] Address: [address] [place] [address] Result Comment: 40-5 9 mg/dL, Acceptable >59 mg/dL, High: Negative risk factor for coronary heart disease <40 mg/dL, Low: Positive risk factor for coronary heart disease Performed By: #### 2 4331-1 ####[facility] LABCLIA [id number] [address], [id number] [place] [address] [place] Cholesterol in LDL [Mass/Vol] 70 mg/dL Normal <100 [facility] Comment on above: Order Comment: Speci men Type: BLOOD SPECIMENOrdering Facility: [facility] Address: [address] [place] [address] Result Comment: <100 mg/dL, Optimal 100-129 mg/dL, Near optimal/above optimal 130-159 mg/dL, Borderline high 160-189 mg/dL, High >189 mg/dL, Very high Secondary prevention optimal LDL Cholesterol levels are recommended to be <70 mg/dL LDL cholesterol is calculated using the Padgett-NIH equation. Performed By: #### 2 4331-1 ####[facility] LABCLIA [id number] [address] [address] [facility] [id number] [address] Cholesterol in LDL/Cholesterol in HDL [Mass ratio] 1.17 {ratio} Normal <2.54 [facility] Comment on above: Order Comment: Speci men Type: BLOOD SPECIMENOrdering Facility: [facility] Address: [address] [place] [address] Result Comment: Refe omid: 1. National Cholesterol Education Program ATP III Guideline At-A-Glance Quick Desk Reference: National Heart, Lung, and Blood Webster. National Institutes of Health. 2001: NIH Publication No. 01-3305. 2. An International Atherosclerosis Society position paper: global recommendations for the management of dyslipidemia: executive summary, Atherosclerosis. 2014: 232(2):410-413. Performed By: #### 2 4331-1 ####[facility] LABCLIA [id number] [address] [id number] [place] [address] [place] [facility] Cholesterol in VLDL [Mass/Vol] 10 mg/dL Normal <30 [facility] Comment on above: Order Comment: Speci men Type: BLOOD SPECIMENOrdering Facility: [facility] Address: [address] [place] [address] Performed By: #### 2 4331-1 ####[facility] LABCLIA [id number] [address] [id number] [place] [address] [place] Cholesterol non HDL [Mass/Vol] 84 mg/dL Normal <130 [facility] Comment on above: Order Comment: Speci men Type: BLOOD SPECIMENOrdering Facility: [facility] Address: [address] [place] [address] Result Comment: <130 mg/dL, Optimal 130-159 mg/dL, Near optimal/above optimal 160-189 mg/dL, Borderline high 190-219 mg/dL, High >219 mg/dL, Very high Secondary prevention optimal non HDL Cholesterol levels are recommended to be <100 mg/dL Performed By: #### 2 4331-1 ####[facility] LABCLIA [id number] [address] [id number] [address] Cholesterol.total/Cynthia sterol in HDL [Mass ratio] 2.40 {ratio} Normal <5.10 [facility] Comment on above: Order Comment: Speci men Type: BLOOD SPECIMENOrdering Facility: [facility] Address: [address] [place] [address] Performed By: #### 2 4331-1 ####[facility] LABCLIA [id number] [id number] [place] [address] FASTING TIME 9 hrs Normal [facility] Comment on above: Order Comment: Speci men Type: BLOOD SPECIMENOrdering Facility: [facility] Address: [address] [place] [address] Performed By: #### 2 4331-1 ####[facility] LABCLIA [id number] [address] [id number] [place] [address] Triglyceride [Mass/Vol] 70 mg/dL Normal <150 [facility] Comment on above: Order Comment: Speci men Type: BLOOD SPECIMENOrdering Facility: [facility] Address: [address] [place] [address] Result Comment: <150 mg/dL, Normal 150-199 mg/dL, Borderline high 200-499 mg/dL, High >499 mg/dL, Very high Performed By: #### 2 4331-1 ####[facility] LABCLIA [id number] [place] [address] [place] [facility] [id number] [place] [address] [place] Magnesium SerPl-mCncon 03-22 Magnesium [Mass/Vol] 1.9 mg/dL Normal 1.7-2.3 [facility] Comment on above: Order Comment: Speci men Type: BLOOD SPECIMENOrdering Facility: [facility] Address: [address] [place] [address] Performed By: #### 2 777-1, 73137-9, 64563-4 ####[facility] [id number] [place] [address] [place] Phosphate SerPl-mCncon 03-22 Phosphate [Mass/Vol] 3.3 mg/dL Normal 2.7-4.8 [facility] Comment on above: Order Comment: Speci men Type: BLOOD SPECIMENOrdering Facility: [facility] Address: [address] [place] [address] Performed By: #### 2 777-1, 35507-6, ####[facility] [id number] [place] [address] [place] CNOVon 01-09-2025 CNOV Office Visit (PODIWS ) PATT CRANE ([id number]) 1980 F Date Time Provider Department 01/09/25 3:45 PM EMILIA GRIFFITHS During your visit today, we recorded the following information about you: Kristyn Coffey LPN 01/09/2025 3:58 PM Signed AMB ROOMING INTAKE FLOWSHEET DATA Pain Pain Level: 10 Pain Location: Foot-Left Description: Stabbing, Throbbing Duration Amount of Time: 6 Duration Units: Months Frequency: Intermittent Intervention/Comfort measure: Reposition, Relaxation Patient presents with: Left Foot - New, Pain RONNY Espinosa Matthew 01/09/2025 3:58 PM Signed Consultation requested by Dr. Rodriguez for an opinion regarding left heel pain. My final recommendations will be communicated back to the requesting physician by way of shared Medical record or letter to requesting physician via US mail. Initial Podiatric Office Visit: Chief Complaint: This 44 year old female who presents with chief complaint:left heel pain HPI Patient presents to clinic for evaluation of left foot Complains of pain to the plantar aspect of left heel that has been present since last summer States the pain is most severe following periods of rest. No pain really with walking. Only pain present when she first gets up Past treatment: massage. No medication. 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 Unsure of dose rosuvastatin (CRESTOR) 10 mg tablet Take 1 tablet by mouth daily at bedtime. empagliflozin (JARDIANCE) 25 mg tablet Take 1 tablet by mouth daily with breakfast. blood sugar diagnostic (BLOOD GLUCOSE TEST) test strip Patient checks sugars twice daily DX E11.65 Lancets Patient checks sugars twice daily DX E11.65 furosemide (LASIX) 40 mg tablet carvedilol (COREG) 12.5 mg tablet lisinopril (ZESTRIL) 20 mg tablet Blood-Glucose Meter 1 Units once daily. No current facility-administered medications for this visit. ALLERGIES Allergen Reactions Latex Hives, Itching Penicillins Unknown PAST SURGICAL HISTORY Procedure Laterality Date DELIVERY ONLY 08/26/2011 , low transverse DANDC, DIAG AND/OR THERAPEUTIC 12/01/2024 ECHO 06/07/2024 LVEF 50% FAMILY HISTORY Problem Relation Age of Onset None Father a.unknown medical problem Stroke Mother a. hypertension, stroke, DM, renal failure None Brother one brother and 3 sisters a. [place] Social History Tobacco Use Smoking status: Never Smokeless tobacco: Never Vaping Use Vaping status: Never Used Substance Use Topics Alcohol use: Yes Comment: social Drug use: Never REVIEW OF SYSTEMS GENERAL: Negative for Malaise, significant weight loss, fever RESPIRATORY: Negative for cough, wheezing and shortness of breath CARDIOVASCULAR: Negative for chest pain, leg swelling and palpitations GI: Negative for abdominal discomfort, blood in stools or black stools and change in bowel habits : Negative for dysuria, frequency and incontinence MUSCULOSKELETAL: Negative for joint pain or swelling, back pain, and muscle pain. SKIN: Negative for lesions, rash, and itching. HEMATOLOGY/LYMPHOLOGY Negative for prolonged bleeding, bruising easily, and swollen nodes. ENDOCRINE: Negative for cold or heat intolerance, polyuria, polydipsia and goiter. NEURO: negative Physical Exam: Constitutional: Pt is a well developed 44 year old female who is alert, oriented and cooperative Eyes: Following during examination. No redness or drainage. Respiratory: RR normal and nonlabored. Even breathing. No evidence of distress or shortness of breath. Psychology: Patient is engaged during conversation. Normal affect and mood. Does not appear depressed or anxious during encounter. Vascular: Dorsalis pedis and posterior tibial pulses palpable as b/l Capillary Fill time < 5 seconds to digits 1-5 b/l Skin temperature warm to warm proximal to distal b/l Hair growth present to digits Neur (more content not included)... Normal [facility] .Auto Diffon 12-13-2024 Basophil, Absolute 0.0 10 3/mcL Normal 0.0-0.2 [facility] Comment on above: Performed By: #### A DIFF, CBC, HCGQ, ANEU #### [address] [address] Basophils/100 WBC (Bld) 0.7 % Normal 0.0-2.5 [facility] Comment on above: Performed By: #### A DIFF, CBC, HCGQ, ANEU #### [address] [address] Eosinophil, Absolute 0.2 10 3/mcL Normal 0.0-0.7 [facility] Comment on above: Performed By: #### A DIFF, CBC, HCGQ, ANEU #### [address] [address] Eosinophils/100 WBC (Bld) 3.2 % Normal 0.0-7.0 [facility] Comment on above: Performed By: #### A DIFF, CBC, HCGQ, ANEU #### [address] [address] Lymphocyte, Absolute 1.6 10 3/mcL Normal 0.9-4.3 [facility] Comment on above: Performed By: #### A DIFF, CBC, HCGQ, ANEU #### [address] [address] Lymphocytes/100 WBC (Bld) 32.0 % Normal 20.0-40.0 [facility] Comment on above: Performed By: #### A DIFF, CBC, HCGQ, ANEU #### [address] [address] Monocyte, Absolute 0.5 10 3/mcL Normal 0.1-1.4 [facility] Comment on above: Performed By: #### A DIFF, CBC, HCGQ, ANEU #### [address] [address] Monocytes/100 WBC (Bld) 10.3 % Normal 2.0-13.0 [facility] Comment on above: Performed By: #### A DIFF, CBC, HCGQ, ANEU #### [address] [address] Neutrophils/100 WBC (Bld) 53.8 % Normal 50.0-75.0 [facility] Comment on above: Performed By: #### A DIFF, CBC, HCGQ, ANEU #### [address] [address] .NEUABSon 12-13-2024 Neutrophil, Absolute 2.7 10 3/mcL Normal 2.3-8.1 [facility] Comment on above: Performed By: #### A DIFF, CBC, HCGQ, ANEU #### [address] [address] CBCon 12-13-2024 Erythrocyte distribution width (RBC) [Ratio] 15.2 % Normal 11.5-15.5 [facility] Comment on above: Performed By: #### A DIFF, CBC, HCGQ, ANEU #### [address] [address] Hematocrit (Bld) [Volume fraction] 41.1 % Normal 34.0-46.0 [facility] Comment on above: Performed By: #### A DIFF, CBC, HCGQ, ANEU #### [address] [address] Hgb 13.4 G/dL Normal 12.0-16.0 [facility] Comment on above: Performed By: #### A DIFF, CBC, HCGQ, ANEU #### [address] [address] MCH (RBC) [Entitic mass] 26.9 pg Low 27.0-33.0 [facility] Comment on above: Performed By: #### A DIFF, CBC, HCGQ, ANEU #### [address] [address] MCHC 32.6 G/dL Normal 32.0-36.0 [facility] Comment on above: Performed By: #### A DIFF, CBC, HCGQ, ANEU #### [address] [address] MCV (RBC) [Entitic vol] 82.7 fL Normal 80.0-99.0 [facility] Comment on above: Performed By: #### A DIFF, CBC, HCGQ, ANEU #### [address] [address] Platelet 355 10 3/mcL Normal 150-450 [facility] Comment on above: Performed By: #### A DIFF, CBC, HCGQ, ANEU #### [address] [address] Platelet mean volume (Bld) [Entitic vol] 7.7 fL Normal 6.6-10.5 [facility] Comment on above: Performed By: #### A DIFF, CBC, HCGQ, ANEU #### [address] [address] RBC 4.97 10 6/mcL Normal 4.10-5.30 [facility] Comment on above: Performed By: #### A DIFF, CBC, HCGQ, ANEU #### [address] [address] WBC 5.0 10 3/mcL Normal 4.5-10.8 [facility] Comment on above: Performed By: #### A DIFF, CBC, HCGQ, ANEU #### [address] [address] Cardiology Visit Reporton Cardiology Visit Report [facility] [address] [place] [address] OFFICE VISIT Date of Service: 12/13/24 MR#: [id number] Acct: [id number] Name: ROYCEPATT R Rep #: [id number] : 1980 Provider: ODALYS venegas Age/Sex: 44/F Location[facility] Status: Signed HPI HPI History of Present Illness Details: This is a 44-year-old lady who presents to the office today for a cardiovascular follow up visit. She had presented to the hospital in July of 2023 with shortness of breath and a non-ST elevation myocardial infarction. This was likely secondary to demand ischemia from elevated blood pressure as well as a cardiomyopathy. Coronary artery did not demonstrate any obstructive stenosis and her ejection fraction was estimated at 20%. She was discharged on medication. It appears that she had been diagnosed approximately 13 years ago after she had a baby with a cardiomyopathy. She acknowledges chest burning sensation. This may last for couple days. This occurs randomly with meals. This is located epigastric and midsternal. This is continuous. She denies palpitations. She denies bilateral lower extremity edema. She denies claudication. She denies shortness of breath with activity, shortness of breath at rest, orthopnea, or PND. She denies chronic cough. She denies significant, sudden weight gain. She denies lightheadedness, dizziness, near-syncope, or syncope. She denies blood in urine, blood in stool, or epistaxis. He denies fever with chills. She denies myalgia. She denies fatigue. Her exercise level has remained stable. 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 Required: No Is patient in pain?: No Allergies latex Adverse Reaction (Mild, Verified 12/13/24 15:20) RASH Penicillins Adverse Reaction (Verified 12/13/24 15:20) UNKNOWN Medications ???Medication ???Instructions ???Recorded ???Confirmed ???Type dulaglutide 0.75 mg/0.5 mL 0.75 mg subcut QWEEK 08/11/23 12/13/24 History subcutaneous pen injector (Trulicity) furosemide 40 mg tablet 40 mg PO DAILY #90 tabs 06/07/24 12/13/24 Rx carvedilol 25 mg tablet 25 mg PO BID #180 tabs 11/18/24 01/15/25 Rx empagliflozin 25 mg tablet 25 mg PO QDAY 12/13/24 12/13/24 History (Jardiance) lisinopril 20 mg tablet 20 mg PO BID 90 days #180 tabs 12/13/24 12/13/24 Rx Ejection fraction %: 50 Have you fallen in the past year?: No [facility] Medical History Cardiac LV ejection fraction 10-20% (08/12/23) Idiopathic cardiomyopathy (08/12/23) delivery delivered TIA (transient ischemic attack) Diabetes HTN (hypertension) Surgical History Previous section Family History Mother Diabetes Hypertension Father Diabetes Hypertension Social History (Updated 12/13/24 @ 15:23 by Catia Saini) household members: significant other and children housing: house Smoking Status: Never smoker alcohol intake: current alcohol intake frequency: holidays/special occasions only substance use type: does not use caffeine: Yes Type: carbonated beverages Number of servings: 3, coffee Number of servings: 1 and tea ROS Const Const: Negative for fatigue or weakness Eyes Eyes: Negative for change in vision ENT ENT: Negative for dizziness or balance problems Cardio Chest Pain: Yes Frequency: other (Last couple of days) Character: other (burning) Onset: with meals and other (Randomly) Location: epigastric and mid sternal Duration: continuous Relieving: other (Spicy foods) Palpitations: No Edema: None Muscle aches with walking: None Resp Respiratory: Negative for SOB with activity, SOB at rest or SOB orthopnea SOB lying down GI GI: Negative nausea or heartburn : Negative for hematuria or frequent nighttime urination/ nocturia Musc Musc: Negative for balance problems Skin Skin: Negative non-healing lesions or rash Neuro Neuro: Negative for dizziness, lightheadedness, near syncope, syncope or weakness Endo Endo: Negative for fatigue Allergy Allergy/Immunology: Negative for rash Cardiology Exam Const Appearance: cooperative, healthy appearing, comfortable and no acute distress Nutritional Appearance: well nourished and obese Orientation: alert, awake and oriented x3 Head Head: normal to inspection Ears: hearing nona (more content not included)... Normal [facility] HCGQon 12-13-2024 hCG, quantitative 8.4 mIU/mL Normal [facility] Comment on above: Result Comment: HCG Levels with Gestation age: 0.2- 1 week. . . . . . . . . . . . . . . 5 - 50 mIU/mL 1-2 weeks . . . . . . . . . . . . . . . 50 - 500 mIU/mL 2-3 weeks . . . . . . . . . . . . . . . 100 - 5,000 mIU/ml 3-4 weeks . . . . . . . . . . . . . . . 500 - 10,000 mIU/mL 4-5 weeks . . . . . . . . . . . . . . . 1,000 - 5,000 mIU/mL 5-6 weeks . . . . . . . . . . . . . . . 10,000 - 100,000 mIU/mL 6-8 weeks . . . . . . . . . . . . . . . 15,000 - 200,000 mIU/mL 2-3 months . . . . . . . . . . . . . . . 10,000 - 100,000 mIU/mL Performed By: #### A DIFF, CBC, HCGQ, ANEU #### [place] [address] LABORATORYOrdered By: SYSTEM SYSTEM on 12-13-2024 Basophils (Bld) [#/Vol] 0.0 103/mcL Normal 0.0 - 0.2 10^3/mcL AO Workflow SS Basophils/100 WBC (Bld) 0.7 % Normal 0.0 - 2.5 % AO Workflow SS Eosinophil, Absolute 0.2 103/mcL Normal 0.0 - 0 .7 10^3/mcL AO Workflow SS Eosinophils/100 WBC (Bld) 3.2 % Normal 0.0 - 7.0 % AO Workflow SS Erythrocyte distribution width (RBC) [Ratio] 15.2 % Normal 11.5 - 15.5 % AO Workflow SS HCG Qn 8.4 m[IU]/mL Invalid Interpretation Code AO ADM SS Comment on above: Interpretive Data: H CG Levels with Gestation age: 0.2- 1 week. . . . . . . . . . . . . . . 5 - 50 mIU/mL 1-2 weeks . . . . . . . . . . . . . . . 50 - 500 mIU/mL 2-3 weeks . . . . . . . . . . . . . . . 100 - 5,000 mIU/ml 3-4 weeks . . . . . . . . . . . . . . . 500 - 10,000 mIU/mL 4-5 weeks . . . . . . . . . . . . . . . 1,000 - 5,000 mIU/mL 5-6 weeks . . . . . . . . . . . . . . . 10,000 - 100,000 mIU/mL 6-8 weeks . . . . . . . . . . . . . . . 15,000 - 200,000 mIU/mL 2-3 months . . . . . . . . . . . . . . . 10,000 - 100,000 mIU/mL Hematocrit (Bld) [Volume fraction] 41.1 % Normal 34.0 - 46.0 % AO Workflow SS Hemoglobin (Bld) [Mass/Vol] 13.4 G/dL Normal 12.0 - 16.0 G/dL AO Workflow SS Lymphocytes (Bld) [#/Vol] 1.6 103/mcL Normal 0.9 - 4.3 10^3/mcL AO Workflow SS Lymphocytes/100 WBC (Bld) 32.0 % Normal 20.0 - 40.0 % AO Workflow SS MCH (RBC) [Entitic mass] 26.9 pg Low 27.0 - 33.0 pg AO Workflow SS MCHC 32.6 G/dL Normal 32.0 - 36.0 G/dL AO Workflow SS MCV (RBC) [Entitic vol] 82.7 fL Normal 80.0 - 99.0 fL AO Workflow SS Monocytes (Bld) [#/Vol] 0.5 103/mcL Normal 0.1 - 1.4 10^3/mcL AO Workflow SS Monocytes/100 WBC (Bld) 10.3 % Normal 2.0 - 13.0 % AO Workflow SS Neutrophils (Bld) [#/Vol] 2.7 103/mcL Normal 2.3 - 8.1 10^3/mcL AO Workflow SS Neutrophils/100 WBC (Bld) 53.8 % Normal 50.0 - 75.0 % AO Workflow SS Platelet mean volume (Bld) [Entitic vol] 7.7 fL Normal 6.6 - 10.5 fL AO Workflow SS Platelets (Bld) [#/Vol] 355 103/mcL Normal 150 - 450 10^3/mcL AO Workflow SS RBC (Bld) [#/Vol] 4.97 106/mcL Normal 4.10 - 5.3 0 10^6/mcL AO Workflow SS WBC (Bld) [#/Vol] 5.0 103/mcL Normal 4.5 - 10.8 10^3/mcL AO Workflow SS CNPNon 12-12-2024 CNPN Telephone (AGFAMPLE) PATT CRANE ([id number]) 1980 F Date Time Provider Department 12/12/24 GARRY RODRIGUEZ During your visit today, we recorded the following information about you: Akshat Quesada MA 12/12/2024 7:18 AM Signed Received fax that ozempic was denied. Placed in red folder to review. JOHN Douglas Kristin C, APRN.ECONOMIC DEVELOPMENT COORDINATOR 12/12/2024 5:54 PM Signed I called her insurance company and did a peer to peer She will need to be on Jardiance at 25 mg for a full 120 days, then if A1C above 7.0 will need to go on another second med for 120 days. If after that second med A1C still above 7.0 they will approve the Ozempic. I discussed [employer] for stroke/heart disease indication and she would not qualify due to her history of diabetes. Please tell patient I am sorry, I tried my best and we will see how she's doing in about 3 months. Garry Rodriguez APRN.Akshat Laws MA 12/13/2024 7:18 AM Signed Vm full. My chart message sent and read. Akshat Quesada MA Allergies As of Date: 12/12/2024 Noted Allergy Reaction LATEX 04/30/2016 4 - Hives 9 - Itching PENICILLINS 09/06/2012 16 - Unknown Date Reviewed: 12/06/2024 Reviewed by: Carmel Dennison MA - Fully Assessed Reason for Visit: Electronic Communication [890] Cmt: Ozempic denied Prescriptions as of 12/13/2024 - rosuvastatin (CRESTOR) 10 mg tablet Take 1 tablet by mouth daily at bedtime. - semaglutide (OZEMPIC) 0.25 mg or 0.5 mg (2 mg/3 mL) pen Inject 0.25 mg subcutaneously one time a week. - empagliflozin (JARDIANCE) 25 mg tablet Take 1 tablet by mouth daily with breakfast. - blood sugar diagnostic (BLOOD GLUCOSE TEST) test strip Patient checks sugars twice daily DX E11.65 - Lancets Patient checks sugars twice daily DX E11.65 - furosemide (LASIX) 40 mg tablet - carvedilol (COREG) 12.5 mg tablet - lisinopril (ZESTRIL) 20 mg tablet - Blood-Glucose Meter 1 Units once daily. 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] 08/30/2012 Pulmonary hypertension (HCC) [I27.20] 01/01/2015 RBBB (right bundle branch block) [I45.10] 02/25/2018 Strain of thoracic spine [S29.012A] 03/05/2016 Uncontrolled diabetes mellitus type 2 without c*05/03/2012 Cardiac LV ejection fraction 10-20% [R09.89] 08/12/2023 Diagnosed: 08/22/2023 Hypertension [I10] 08/22/2023 Diagnosed: 08/22/2023 Myocardial infarction (HCC) [I21.9] 08/12/2023 Diagnosed: 08/22/2023 Uterine leiomyoma [D25.9] 10/06/2023 Cyst of right ovary [N83.201] 10/06/2023 History of cardiomyopathy [Z86.79] 12/11/2024 Encounter Status:Closed by AKSHAT QUESADA on 12/12/24 [facility] Micheline 12-11-2024 WILL Telephone ([employer]) PATT CRANE ([id number]) 1980 F Date Time Provider Department 12/11/24 GARRY RODRIGUEZ During your visit today, we recorded the following information about you: Akshat Quesada MA 12/11/2024 7:24 AM Signed ----- Message from Garry Rodriguez APRN.ECONOMIC DEVELOPMENT COORDINATOR sent at 12/10/2024 9:25 AM EST ----- Please notify patient results are normal. Thank you. Garry Rodriguez APRN.Carmel Lazaro MA 12/11/2024 8:41 AM Signed Left message informing patient, phone number to reach the office was left for any questions or concerns. Carmel Dennison MA Allergies As of Date: 12/11/2024 Noted Allergy Reaction LATEX 04/30/2016 4 - Hives 9 - Itching PENICILLINS 09/06/2012 16 - Unknown Date Reviewed: 12/06/2024 Reviewed by: Carmel Dennison MA - Fully Assessed Reason for Visit: Results [95] Prescriptions as of 12/11/2024 - semaglutide (OZEMPIC) 0.25 mg or 0.5 mg (2 mg/3 mL) pen Inject 0.25 mg subcutaneously one time a week. - empagliflozin (JARDIANCE) 25 mg tablet Take 1 tablet by mouth daily with breakfast. - blood sugar diagnostic (BLOOD GLUCOSE TEST) test strip Patient checks sugars twice daily DX E11.65 - Lancets Patient checks sugars twice daily DX E11.65 - furosemide (LASIX) 40 mg tablet - carvedilol (COREG) 12.5 mg tablet - lisinopril (ZESTRIL) 20 mg tablet - Blood-Glucose Meter 1 Units once daily. Problem List As Of Date 12/11/2024 Noted Resolved cardiomyopathy, [O90.3] 09/05/2012 DM (diabetes mellitus) type II [E11.9] 09/05/2012 Embolic stroke involving left middle cerebral a*09/05/2012 Iron deficiency anemia [D50.9] 09/05/2012 Dyslipidemia [E78.5] 02/25/2018 Gestational diabetes mellitus, [O24.*11/12/2011 01/15/2024 History of embolic stroke [Z86.73] 01/01/2015 Obesity [E66.9] 05/03/2012 Multinodular goiter [E04.2] 10/12/2012 Parietal lobe infarction (HCC) [I63.89] 08/30/2012 Pulmonary hypertension (HCC) [I27.20] 01/01/2015 RBBB (right bundle branch block) [I45.10] 02/25/2018 Strain of thoracic spine [S29.012A] 03/05/2016 Uncontrolled diabetes mellitus type 2 without c*05/03/2012 Cardiac LV ejection fraction 10-20% [R09.89] 08/12/2023 Diagnosed: 08/22/2023 Hypertension [I10] 08/22/2023 Diagnosed: 08/22/2023 Myocardial infarction (HCC) [I21.9] 08/12/2023 Diagnosed: 08/22/2023 Uterine leiomyoma [D25.9] 10/06/2023 Cyst of right ovary [N83.201] 10/06/2023 Encounter Status:Closed by CARMEL DENNISON on 12/11/24 Normal [facility] XR Foot - left AP and Latera l and obliqueon 12-08-2024 IMPRESSION: No acute radiographic abnormality. Pharmacovigilance Safety Expert: HODA Transcribe Date/Time: Dec 08 2024 11:36A Dictated by : YUAN ROBLES MD This examination was interpreted and the report reviewed and electronically signed by: YUAN ROBLES MD on Dec 08 2024 11:37AM EST [facility] * * *Final Report* * * DATE OF EXAM: Dec 06 2024 2:08PM LDX 5336 - XR FOOT 3V AP/LAT/OBL LT / PROCEDURE REASON: multiple diagnoses * * * * Physician Interpretation * * * * EXAM TITLE: XR FOOT 3V AP/LAT/OBL LT DATE: 12/08/2024 11:36 AM INDICATION: Foot pain COMPARISON: None. FINDINGS: No fracture or dislocation. No joint or soft tissue abnormality. Incidentally, there is a small heel spur. This is probably not clinically significant. [facility] Provider, Asia Ziegler Amish - 12/08/2024 * * *Final Report* * * DATE OF EXAM: Dec 06 2024 2:08PM LDX 5336 - XR FOOT 3V AP/LAT/OBL LT / PROCEDURE REASON: multiple diagnoses * * * * Physician Interpretation * * * * EXAM TITLE: XR FOOT 3V AP/LAT/OBL LT DATE: 12/08/2024 11:36 AM INDICATION: Foot pain COMPARISON: None. FINDINGS: No fracture or dislocation. No joint or soft tissue abnormality. Incidentally, there is a small heel spur. This is probably not clinically significant. IMPRESSION IMPRESSION: No acute radiographic abnormality. Pharmacovigilance Safety Expert: PSCB Transcribe Date/Time: Dec 08 2024 11:36A Dictated by : YUAN ROBLES MD This examination was interpreted and the report reviewed and electronically signed by: YUAN ROBLES MD on Dec 08 2024 11:37AM EST [facility] XR Foot - left AP and Latera l and obliqueOrdered By: Ccf Provider on 12-08-2024 [facility] WILL Telephone (ENRIQUEITZEL) PATT CRANE ([id number]) 1980 F Date Time Provider Department 12/07/24 GARRY RODRIGUEZ During your visit today, we recorded the following information about you: Akshat Quesada MA 12/07/2024 7:20 AM Signed Received fax from [employer] stating eriberto denied ozempic. Please advise. JOHN Douglas Mary, MA 12/08/2024 5:17 PM Signed Received fax from medicaid for ozempic to be filled out. Placed in red folder. JOHN Douglas Kristin C, APRN.[facility] 12/11/2024 10:35 AM Signed Thank you, form is completed and signed. Garry Rodriguez APRN.[place] Terryosman AkshatJOHN 12/11/2024 10:48 AM Signed Faxed. Placed in immediate scanning. Akshat Quesada MA Allergies As of Date: 12/07/2024 Noted Allergy Reaction LATEX 04/30/2016 4 - Hives 9 - Itching PENICILLINS 09/06/2012 16 - Unknown Date Reviewed: 12/06/2024 Reviewed by: Carmel Dennison MA - Fully Assessed Reason for Visit: Electronic Communication [890] Cmt: Ozempic denied Prescriptions as of 12/11/2024 - rosuvastatin (CRESTOR) 10 mg tablet Take 1 tablet by mouth daily at bedtime. - semaglutide (OZEMPIC) 0.25 mg or 0.5 mg (2 mg/3 mL) pen Inject 0.25 mg subcutaneously one time a week. - empagliflozin (JARDIANCE) 25 mg tablet Take 1 tablet by mouth daily with breakfast. - blood sugar diagnostic (BLOOD GLUCOSE TEST) test strip Patient checks sugars twice daily DX E11.65 - Lancets Patient checks sugars twice daily DX E11.65 - furosemide (LASIX) 40 mg tablet - carvedilol (COREG) 12.5 mg tablet - lisinopril (ZESTRIL) 20 mg tablet - Blood-Glucose Meter 1 Units once daily. Problem List As Of Date 12/07/2024 Noted Resolved cardiomyopathy, [O90.3] 09/05/2012 DM (diabetes mellitus) type II [E11.9] 09/05/2012 Embolic stroke involving left middle cerebral a*09/05/2012 Iron deficiency anemia [D50.9] 09/05/2012 Dyslipidemia [E78.5] 02/25/2018 Gestational diabetes mellitus, [O24.*11/12/2011 01/15/2024 History of embolic stroke [Z86.73] 01/01/2015 Obesity [E66.9] 05/03/2012 Multinodular goiter [E04.2] 10/12/2012 Parietal lobe infarction (HCC) [I63.89] 08/30/2012 Pulmonary hypertension (HCC) [I27.20] 01/01/2015 RBBB (right bundle branch block) [I45.10] 02/25/2018 Strain of thoracic spine [S29.012A] 03/05/2016 Uncontrolled diabetes mellitus type 2 without c*05/03/2012 Cardiac LV ejection fraction 10-20% [R09.89] 08/12/2023 Diagnosed: 08/22/2023 Hypertension [I10] 08/22/2023 Diagnosed: 08/22/2023 Myocardial infarction (HCC) [I21.9] 08/12/2023 Diagnosed: 08/22/2023 Uterine leiomyoma [D25.9] 10/06/2023 Cyst of right ovary [N83.201] 10/06/2023 Encounter Status:Closed by AKSHAT QUESADA on 12/07/24 Normal [facility] ALBUMIN/CREATININE RATIO, UR INEon 12-06-2024 Albumin Unsp time DL <= 20 mg/L (U) [Mass/Time] mg/L mg/L [facility] Albumin/Creatinine (U) [Mass ratio] mg/g NINF - 30 mg/g [facility] Comment on above: Adult Male and Femal e Nephrotic Criteria: <30 mg/g is considered normal to mildly increased 30-300 mg/g is considered moderately increased >300 mg/g is considered severely increased KDIGO. (2013). KDIGO 2012 Clinical Practice Guideline for the Evaluation and Management of Chronic Kidney Disease. Official Journal of the International Society of Nephrology, 3(1), 1-150. Creatinine (U) [Mass/Vol] 64.8 mg/dL 42.2 - 237.9 mg/dL [facility] Albumin Unsp time DL <= 20 mg/L (U) [Mass/Time] <12.0 Normal [facility] Comment on above: Order Comment: Speci men Type: URINE SPECIMEN Ordering Facility: [facility] Address: [address] [place] [address] Performed By: #### U ACR #### [facility] CLIA [id number] [address] Albumin/Creatinine (U) [Mass ratio] <19 Normal <30 [facility] Comment on above: Order Comment: Speci men Type: URINE SPECIMEN Ordering Facility: [facility] Address: [address] [place] [address] Result Comment: Adul t Male and Female Nephrotic Criteria: <30 mg/g is considered normal to mildly increased 30-300 mg/g is considered moderately increased >300 mg/g is considered severely increased KDIGO. (2013). KDIGO 2012 Clinical Practice Guideline for the Evaluation and Management of Chronic Kidney Disease. Official Journal of the International Society of Nephrology, 3(1), 1-150. Performed By: #### U ACR #### [facility] CLIA [id number] [address] Creatinine (U) [Mass/Vol] 64.8 mg/dL Normal 42.2-237.9 [facility] Comment on above: Order Comment: Speci men Type: URINE SPECIMEN Ordering Facility: [facility] Address: [address] [place] [address] Performed By: #### U ACR #### [facility] CLIA [id number] [address] CNOVon 12-06-2024 CNOV Office Visit ([place]) PATT CRANE ([id number]) 1980 F Date Time Provider Department 12/06/24 1:20 PM GARRY RODRIGUEZ During your visit today, we recorded the following information about you: Temperature Pulse Respiration Blood pressure 98 degrees 56/minute 16/minute 122/62 Weight Height 91.2 kg 1.6 m Garry Rodriguez, CELL OPERATION SUPERVISOR.ECONOMIC DEVELOPMENT COORDINATOR 12/11/2024 10:35 AM Signed Subjective Patt Crane is a 44 year old female here today for well adult visit. I reviewed past medical, surgical, social, and family histories today and updated chart. Allergies, chronic medications, and supplements were also reviewed. HPI Overall feeling well today Preventative Health: Breast cancer screening - last mammogram was about a year ago Cervical cancer screening - Dr Briones is her OBGYN [place] Colorectal cancer screening - na Osteoporosis screening - na Lipid screening - due for it Type 2 diabetes - Failed metformin and glimepiride in the past Metformin gave her diarrhea Glimepiride - hypoglycemia Lantus insulin - weight gain, not effective Trulicity - she started 3 mg dose , the first dose made her stomach hurt too much so she stopped taking On Jardiance for cardiomyopathy, she continues care with [facility] cardiology - Dr Blanco Has history of stroke, heart attack Left heel pain - only whne she puts weight on it Always has to have shoe on Hurts throughout the day No numbness or tingling Middle of the heel - can feel a little knot there Started a few months ago 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 09/05/2012 Goiter 09/05/2012 Iron deficiency anemia 09/05/2012 NSTEMI (non-ST elevated myocardial infarction) (HCC) 07/2023 PAST SURGICAL HISTORY Procedure Laterality Date DELIVERY ONLY 08/26/2011 , low transverse DANDC, DIAG AND/OR THERAPEUTIC 12/01/2024 ECHO 06/07/2024 LVEF 50% ALLERGIES Latex and Penicillins MEDICATIONS blood sugar diagnostic (BLOOD GLUCOSE TEST) test strip Patient checks sugars twice daily DX E11.65 Lancets Patient checks sugars twice daily DX E11.65 furosemide (LASIX) 40 mg tablet carvedilol (COREG) 12.5 mg tablet lisinopril (ZESTRIL) 20 mg tablet empagliflozin (JARDIANCE) 10 mg tablet Take by mouth. Blood-Glucose Meter 1 Units once daily. dulaglutide (TRULICITY) 3 mg/0.5 mL pen injector Inject 3 mg subcutaneously one time a week. FAMILY HISTORY Problem Relation Age of Onset None Father a.unknown medical problem Stroke Mother a. hypertension, stroke, DM, renal failure None Brother one brother and 3 sisters a. [place] Social History Tobacco Use Smoking status: Never Smokeless tobacco: Never Vaping Use Vaping status: Never Used Substance Use Topics Alcohol use: Yes Comment: social Drug use: Never Review of Systems Constitutional: Negative for appetite change, chills, fatigue, fever and unexpected weight change. HENT: Negative for congestion, ear pain, rhinorrhea and sore throat. Eyes: Negative for pain, discharge, itching and visual disturbance. Respiratory: Negative for cough, shortness of breath and wheezing. Cardiovascular: Negative for chest pain, palpitations and leg swelling. Gastrointestinal: Negative for abdominal pain, constipation, diarrhea, nausea and vomiting. Genitourinary: Negative for difficulty urinating. Musculoskeletal: Positive for arthralgias. Skin: Negative for rash. Neurological: Negative for dizziness, tremors, weakness and headaches. Psychiatric/Behavioral : Negative for dysphoric mood and sleep disturbance. The patient is not nervous/anxious. Objective BP 122/62 Pulse 56 Temp 98 Resp 16 Ht 5' 3 (1.60m) Wt 201 lb (91.2kg) SpO2 98% BMI 35.61 kg/(m2). Physical Exam Constitutional: Appearance: Normal appearance. She is well-developed. HENT: Head: Normocephalic and atraumatic. Right Ear: Hearing, tympanic membrane, ear canal and external ear normal. No drainage. Left Ear: Hearing, tympanic membrane, ear canal and external ear normal. No drainage. Nose: Nose normal. Mouth/Throat: Pharynx: Uvula midline. Eyes: General: Lids are normal. Right eye: No discharge. Left eye: No discharge. Conjunctiva/sclera: Conjunctivae normal. Pupils: Pupils are equal, round, and reactive to light. Neck: Thyroid: No thyromegaly. Vascular: No carotid bruit. Cardiovascular: Rate and Rhythm: Normal rate and regular rhythm. Heart sounds: Normal heart sounds. No murmur heard. Pulmonary: Effort: Pulmonary effort is normal. Breath sounds: Normal breath sounds. No wheezing, rhonchi or rales. Abdominal: General: Bowel sounds are normal. There is no distension or abdominal (more content not included)... Normal [facility] HEMOGLOBIN A1C (POC)on 12-06 HbA1c (Bld) [Mass fraction] 8.9 % Abnormal 4.3 - 5.6 % [facility] Comment on above: Location:[facility], [address] [place] [address], [facility] Point of care (POC) Hemoglobin A1c (HGBA1C) testing is intended to assess glucose control and provide a management tool for patients known to have diabetes and their healthcare providers. Target HGBA1C levels may depend on specific clinical circumstances. POC HGBA1C is not intended for use as a diagnostic or screening test; laboratory-based testing should be used for diagnostic purposes. The following information is supplemental and may not be applicable to specific diabetes management situations: The POC device case hardener provides a normal range of 4.2% to 6.5% for the HGBA1C POC test. However, the [place] [employer] guidelines indicate that patients with HGBA1C in the range of 5.7% to 6.4% are at increased risk for development of diabetes and that intervention by lifestyle modification may be beneficial. A HGBA1C level greater than or equal to 6.5% is considered diagnostic of diabetes, pending confirmatory testing. Use of HGBA1C testing to evaluate glucose control may not be appropriate for patients with hemoglobin variants or other conditions (e.g. anemia) that alter red blood cell lifespan. Interpretation and review of laboratory results Abnormal [facility] XR FOOT 3V AP/LAT/OBL LTon 0 12-06-2024 XR FOOT 3V AP/LAT/OBL LT * * *Final Report* * * DATE OF EXAM: Dec 06 2024 2:08PM LDX 5336 - XR FOOT 3V AP/LAT/OBL LT / PROCEDURE REASON: multiple diagnoses * * * * Physician Interpretation * * * * EXAM TITLE: XR FOOT 3V AP/LAT/OBL LT DATE: 12/08/2024 11:36 AM INDICATION: Foot pain COMPARISON: None. FINDINGS: No fracture or dislocation. No joint or soft tissue abnormality. Incidentally, there is a small heel spur. This is probably not clinically significant. IMPRESSION: No acute radiographic abnormality. Pharmacovigilance Safety Expert: HODA Transcribe Date/Time: Dec 08 2024 11:36A Dictated by : YUAN ROBLES MD This examination was interpreted and the report reviewed and electronically signed by: YUAN ROBLES MD on Dec 08 2024 11:37AM EST [id number] Normal [facility] XR Foot - left AP and Latera l and obliqueon 12-06-2024 Radiology Study observation (narrative) [facility] CNCOon 11-27-2024 CNCO Letter Text Normal [facility] HCGQon 11-24-2024 hCG, quantitative 4613.6 mIU/mL Normal [facility] Comment on above: Result Comment: HCG Levels with Gestation age: 0.2- 1 week. . . . . . . . . . . . . . . 5 - 50 mIU/mL 1-2 weeks . . . . . . . . . . . . . . . 50 - 500 mIU/mL 2-3 weeks . . . . . . . . . . . . . . . 100 - 5,000 mIU/ml 3-4 weeks . . . . . . . . . . . . . . . 500 - 10,000 mIU/mL 4-5 weeks . . . . . . . . . . . . . . . 1,000 - 5,000 mIU/mL 5-6 weeks . . . . . . . . . . . . . . . 10,000 - 100,000 mIU/mL 6-8 weeks . . . . . . . . . . . . . . . 15,000 - 200,000 mIU/mL 2-3 months . . . . . . . . . . . . . . . 10,000 - 100,000 mIU/mL Performed By: #### H CGYared PREGS #### [place] [address] LABORATORYOrdered By: Judith Dickson on 11-24-2024 HCG ( test) Ql (U) Positive (11/24/24 11:33 AM) Normal AO Rapid Testing SS test (s) int Detected Invalid Interpretation Code AO Rapid Testing SS LABORATORYOrdered By: SYSTEM SYSTEM on 11-24-2024 HCG Qn 4613.6 m[IU]/mL Invalid Interpretation Code AO ADM SS Comment on above: Interpretive Data: H CG Levels with Gestation age: 0.2- 1 week. . . . . . . . . . . . . . . 5 - 50 mIU/mL 1-2 weeks . . . . . . . . . . . . . . . 50 - 500 mIU/mL 2-3 weeks . . . . . . . . . . . . . . . 100 - 5,000 mIU/ml 3-4 weeks . . . . . . . . . . . . . . . 500 - 10,000 mIU/mL 4-5 weeks . . . . . . . . . . . . . . . 1,000 - 5,000 mIU/mL 5-6 weeks . . . . . . . . . . . . . . . 10,000 - 100,000 mIU/mL 6-8 weeks . . . . . . . . . . . . . . . 15,000 - 200,000 mIU/mL 2-3 months . . . . . . . . . . . . . . . 10,000 - 100,000 mIU/mL PREGSon 11-24-2024 test (s) Positive Normal [facility] Comment on above: Order Comment: +VE U PT at home. Performed By: #### H CGQ, PREGS #### [address] [address] test (s) int Detected Invalid Interpretation Code [facility] Comment on above: Order Comment: +VE U PT at home. Performed By: #### H CGQ, PREGS #### [place] [id number] CT CHEST WO IVCONon 11-16-[address] CHEST WO IVCON * * *Final Report* * * DATE OF EXAM: Nov 16 2024 3:49PM [facility] 0541 - CT CHEST WO IVCON / PROCEDURE REASON: Lung nodule * * * * Physician Interpretation * * * * EXAMINATION: CHEST CT WITHOUT CONTRAST CLINICAL HISTORY: Lung nodule Technique: Spiral CT acquisition of the chest from the thoracic inlet to the upper abdomen without contrast. MQ: [id number] CT Radiation dose: Integrated Dose-length product (DLP) for this visit = 401 mGy*cm CT Dose Reduction Employed: Automated exposure control(AEC) and iterative recon Comparison: 10/06/2023 RESULT: Limitations: None. Lines, tubes, and devices: None. Lung parenchyma and airways: There is no pneumothorax or endobronchial lesion. Please note that the nodule described within the lingula on the prior examination has resolved interval and was likely infectious or inflammatory in etiology. Punctate calcified granuloma is seen within the left lower lobe (series 5, image #116). Other calcified granulomas are also seen. For example, there is a calcified granuloma within the left lung base (series 5, image #140). No suspicious pulmonary nodule is identified. Pleural space: There is no pleural effusion. Lower neck, lymph nodes, and mediastinum: There are prominent, less than 1 cm bilateral axillary lymph nodes, likely reactive. No oj mediastinal or hilar lymphadenopathy is identified. Heart, pericardium, and thoracic vessels: The heart is normal in size. There is no significant pericardial effusion. Bones and soft tissues: There is no destructive bony lesion. Upper abdomen: Contents are seen within the stomach. Mild, nonspecific thickening of adrenal glands, bilaterally. Gallbladder is relatively collapsed but is otherwise unremarkable. IMPRESSION: 1. No acute pulmonary process is identified. Please note that the nodule described within the lingula on the prior examination has resolved in the interval and was likely infectious or inflammatory in etiology. No suspicious pulmonary nodule is seen on today's examination. 2. No oj lymphadenopathy is seen within the chest. Sequela of remote granulomatous disease. Pharmacovigilance Safety Expert: PSCB Transcribe Date/Time: Nov 20 2024 3:56P Dictated by : CAROL CALLAWAY MD This examination was interpreted and the report reviewed and electronically signed by: CAROL CALLAWAY MD on Nov 20 2024 4:01PM EST [id number] Normal [facility] 10-09-2024 [facility] PATT CRANE ([id number]) 1980 F Date Time Provider Department 10/09/24 GARRY RODRIGUEZ During your visit today, we recorded the following information about you: Carmel Dennison MA 10/09/2024 7:42 AM Signed ----- Message from Pilar Sultana MA sent at 10/07/2023 10:14 AM EST ----- Patient due for [address] chest to monitor small lung nodule. JOHN Pritchett Kristin C, APRN.[facility] 10/09/2024 2:23 PM Signed Thank you. Please see orders. Garry Rodriguez APRN.Akshat Laws MA 10/09/2024 2:36 PM Signed Patient aware. Akshat Quesada MA Allergies As of Date: 10/09/2024 Noted Allergy Reaction LATEX 04/30/2016 4 - Hives 9 - Itching PENICILLINS 09/06/2012 16 - Unknown Date Reviewed: 01/15/2024 Reviewed by: Garry Rodriguez APRN.ECONOMIC DEVELOPMENT COORDINATOR - Fully Assessed Reason for Visit: Orders [681] Primary Visit Diagnosis:Lung nodule [R91.1] Order(s):CT CHEST WO IVCON [[id number]] Order #: [id number] FUTURE Prescriptions as of 10/09/2024 - dulaglutide (TRULICITY) 3 mg/0.5 mL pen injector Inject 3 mg subcutaneously one time a week. - furosemide (LASIX) 40 mg tablet - carvedilol (COREG) 12.5 mg tablet - lisinopril (ZESTRIL) 20 mg tablet - empagliflozin (JARDIANCE) 10 mg tablet Take by mouth. - blood sugar diagnostic (BLOOD GLUCOSE TEST) test strip Patient checks sugars twice daily DX E11.65 - Lancets lancets Patient checks sugars twice daily DX E11.65 - Blood-Glucose Meter 1 Units once daily. 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] 08/30/2012 Pulmonary hypertension (HCC) [I27.20] 01/01/2015 RBBB (right bundle branch block) [I45.10] 02/25/2018 Strain of thoracic spine [S29.012A] 03/05/2016 Uncontrolled diabetes mellitus type 2 without c*05/03/2012 Cardiac LV ejection fraction 10-20% [R09.89] 08/12/2023 Diagnosed: 08/22/2023 Hypertension [I10] 08/22/2023 Diagnosed: 08/22/2023 Myocardial infarction (HCC) [I21.9] 08/12/2023 Diagnosed: 08/22/2023 Uterine leiomyoma [D25.9] 10/06/2023 Cyst of right ovary [N83.201] 10/06/2023 Encounter Status:Closed by AKSHAT QUESADA on 10/09/24 Normal [facility] 05-10-2024 Hematocrit (Bld) [Volume fraction] 41.4 % Normal 37.0-47.0 [facility] ([place] Comment on above: Performed By: #### H H #### [place] [address] [address] Hgb 13.5 G/dL Normal 12.0-16.0 [facility] ([place] Comment on above: Performed By: #### H H #### [place] [address] [address] LABORATORYOrdered By: SYSTEM SYSTEM on 05-10-2024 Hematocrit (Bld) [Volume fraction] 41.4 % Normal 37.0 - 47.0 % AO Workflow SS Hemoglobin (Bld) [Mass/Vol] 13.5 G/dL Normal 12.0 - 16.0 G/dL AO Workflow SS US PELVIS NON-OB W/TRANSVAGI NALon 02-16-2024 US PELVIS NON-OB W/TRANSVAGINAL ORIGINAL EXAMINATION: Ultrasound pelvis, 02/16/2024 10:47 am transabdominal and transvaginal with 3D imaging also COMPARISON: None HISTORY: ORDERING SYSTEM PROVIDED HISTORY: Reason for Exam: size evaluation for surgical decision making, uterine fibroids FINDINGS: The uterus is markedly enlarged at least 12.3 x 8.1 x 7.5 cm. There is a large hypoechoic mass in the posterior fundus/body to the left of midline that is mostly subserosal 7.3 x 6.2 x 6.4 cm. Within the fundus centrally there is a large heterogeneous solid area that is probably another fibroid that is at least 4.7 x 3.3 cm. The endometrial stripe is not clearly localized on the transvaginal images probably due to displacement by the fibroids.. On the suprapubic images the endometrial stripe is measured at 7 mm which is normal. Right ovary: 2.2 x 2.6 x 1.9 cm. There are small follicles in the ovary. Left ovary: 2.9 x 2.4 x 2.9 cm. There is no adnexal mass or pelvic free fluid. IMPRESSION: Enlarged uterus. There is a large left-sided subserosal fibroid. Suspect another intramural fibroid as described. Poorly localized endometrium seems to be within normal limits on the suprapubic images. Interpreted by: Adan Moody MD Preliminary Report By: Adan Moody MD Electronically signed By Adan Moody MD Dictated Date: 02/16/2024 3:16:35 PM Prelim Date: 02/16/2024 3:21:09 PM Sign Date: 02/16/2024 3:21:09 PM Ordering Provider: KRISTYN Dexter [facility] ([place] HEMOGLOBIN A1C (POC)on 01-12 HbA1c (Bld) [Mass fraction] 9.4 % Abnormal 4.3 - 5.6 % [facility] [employer] Cytology Reporton 2022 [employer] Cytology Report . Pathology Reports Accession: Collected Date/Time: Received Date/Time: Pathologist: [id number] 10/27/2023 10:33 EST 10/27/2023 18:00 EST [employer] Cytology Report SPECIMEN: Specimen Description: Liquid Prep w/ HPV Specimen: Cervical Screening or Diagnostic: Screening RELEVANT HISTORY: LMP: 10/20 Abnormal Bleeding: Yes SPECIMEN ADEQUACY: SATISFACTORY FOR EVALUATION Endocervical/Transform ational zone component absent/insufficient INTERPRETATION/RESULTS : NEGATIVE FOR INTRAEPITHELIAL LESION OR MALIGNANCY HIGH RISK HPV TESTING: Event Code Result HPV Interp See Interp HPVN HPV Interp Text: High Risk HPV Typing: NEGATIVE HPV types 16, 18, 31, 33, 35, 39, 45, 51, 52, 56, 58, 59, 66 and 68 DNA were undetectable or below the pre-set threshold. The michael High-Risk HPV DNA Test is not intended for use as a screening device for Pap normal women under age 30 and is not intended to substitute for regular Pap screening. The michael High-Risk HPV DNA Test is designed to augment existing methods for the detection of cervical disease and should be used in conjunction with clinical information derived from other diagnostic and screening tests, physical examinations and full medical history in accordance with appropriate patient management procedures. NOTE: A negative result does not preclude the presence of HPV infection because results depend on adequate specimen collection, absence of inhibitors and sufficient DNA to be detected. As of: 11/01/23 15:52 EST COMMENT: This Pap Test was successfully processed and evaluated with the assistance of the [employer] ThinPrep Test Imaging System. Pathology Reports Accession: Collected Date/Time: Received Date/Time: Pathologist: [id number] 10/27/2023 10:33 EST 10/27/2023 18:00 EST Electronically Signed by Pathology report verified by [facility] Screened by: [place] Electronically signed by Julisa CARDONA (ASCP) Sign-Out Date: 11/01/2023 15:52 Performing Lab: [facility], [address] [place] [address] Pathology Dept Disclaimer The Pap test is a screening test for cervical cancer. As evidenced by published data, it is subject to both inherent false negative and false positive results. Your patient's results should be interpreted in context with pertinent clinical history including gynecological examination. Normal [facility] ([place] HPVon 11-01-2023 HPV Interp Normal See Inter HPVN [facility]) Comment on above: Order Comment: Order placed by AP_HPV_ORDER rule from [id number] Result Comment: High Risk HPV Typing: NEGATIVE HPV types 16, 18, 31, 33, 35, 39, 45, 51, 52, 56, 58, 59, 66 and 68 DNA were undetectable or below the pre-set threshold. The michael High-Risk HPV DNA Test is not intended for use as a screening device for Pap normal women under age 30 and is not intended to substitute for regular Pap screening. The michael High-Risk HPV DNA Test is designed to augment existing methods for the detection of cervical disease and should be used in conjunction with clinical information derived from other diagnostic and screening tests, physical examinations and full medical history in accordance with appropriate patient management procedures. NOTE: A negative result does not preclude the presence of HPV infection because results depend on adequate specimen collection, absence of inhibitors and sufficient DNA to be detected. See [facility] HPVN Performed By: #### H PV #### [place] [address] HPV Source Cervix Normal [facility]) Comment on above: Order Comment: Order placed by AP_HPV_ORDER rule from [id number] Performed By: #### H PV #### [place] [address] Basophil percentageOrdered B y: Alexia Stacy on 10-12-2023 Chloride [Moles/Vol] 106 mmol/L 98-107 [facility] Glucose [Mass/Vol] 262 mg/dL 74-106 [facility] Comment on above: Glucose result great er than or equal to 200 mg/dLsuggests DIABETES MELLITUS per A.D.A. criteria. Potassium [Moles/Vol] 3.9 mmol/L 3.5-5.1 [facility] Sodium [Moles/Vol] 138 mmol/L 136-145 [facility] Laboratory - Chemistry and C hemistry - challengeOrdered By: Alexia Stacy on 10-12-2023 CO2 [Moles/Vol] 27.0 mmol/L 21.0-32.0 [facility] Urea nitrogen/Creatinine [Mass ratio] 12.6 mg/mg 10-20 [facility] No Panel InformationOrdered By: Alexia Stacy on 10-12-2023 Estimated GFR (MDRD) Amer 64 mL/min >60 [facility] Comment on above: GFR Calc Estimated GFR (MDRD) Non-Af Amer 53 mL/min >60 [facility] Comment on above: Non- GFR Calc Serum or plasma calcium lamar urement (mass/volume)Ordered By: Alexia Stacy on 10-12-2023 Calcium [Mass/Vol] 8.8 mg/dL 8.5-10.1 [facility] Serum or plasma creatinine m easurement (mass/volume)Ordered By: Alexia Stacy on 10-12-2023 Creatinine [Mass/Vol] 1.19 mg/dL 0.55-1.02 [facility] Comment on above: The validity of the calculated GFR & GFRAA in patients over 70 years has not been determined. Clinical correlation is essential. Serum or plasma urea nitroge n measurement (mass/volume)Ordered By: Alexia Stacy on 10-12-2023 Urea nitrogen [Mass/Vol] 15 mg/dL 7-18 [facility] Thin prep Papanicolaou smear with manual screeningOrdered By: Alexia Stacy on 10-12-2023 Thin prep Papanicolaou smear with manual screening 5- [facility] CT ABD/PEL W IVCONon 023 Radiology Result ACTIONABLE Abnormal [facility] Absolute lymphocyte countOrd ered By: Alexia Stacy on 09-21-2023 Lymphocytes Auto (Unsp spec) [#/Vol] 1.27 10*3/uL 0.83-4.51 [facility] Basophil percentageOrdered B y: Alexia Stacy on 09-21-2023 Basophils/100 WBC (Bld) 0.5 % 0-1 [facility] Chloride [Moles/Vol] 108 mmol/L 98-107 [facility] Eosinophils/100 WBC (Bld) 2.7 % 0-5 [facility] Glucose [Mass/Vol] 217 mg/dL 74-106 [facility] Comment on above: Glucose result great er than or equal to 200 mg/dLsuggests DIABETES MELLITUS per A.D.A. criteria. Neutrophils (Bld) [#/Vol] 3.2 10*3/uL 2.0-7.7 [facility] Neutrophils/100 WBC (Bld) 58.1 % 47-70 [facility] Potassium [Moles/Vol] 3.8 mmol/L 3.5-5.1 [facility] Sodium [Moles/Vol] 139 mmol/L 136-145 [facility] WBC (Bld) [#/Vol] 5.5 10*3/uL 4.4-11.0 [facility] Blood erythrocytes count (nu mber/volume)Ordered By: Alexia Stacy on 09-21-2023 RBC (Bld) [#/Vol] 4.80 10*6/uL 4.2-5.4 [facility] Blood hemoglobin measurement (mass/volume)Ordered By: Alexia Stacy on 09-21-2023 Hemoglobin (Bld) [Mass/Vol] 12.0 g/dL 12.0-15.0 [facility] Blood lymphocytes/100 leukoc ytesOrdered By: Alexia Stacy on 09-21-2023 Lymphocytes/100 WBC (Bld) 23.3 % 19-41 [facility] [facility] Blood monocytes/100 leukocyt esOrdered By: Alexia Stacy on 09-21-2023 Monocytes/100 WBC (Bld) 13.9 % 0-10 [facility] Blood platelet mean volumeOr dered By: Alexia Stacy on 09-21-2023 Platelet mean volume (Bld) [Entitic vol] 10.3 fL 6.2-12.0 [facility] Determination of erythrocyte mean corpuscular volume (MCV)Ordered By: Alexia Stacy on 09-21-2023 MCV (RBC) [Entitic vol] 82.9 fL 81-99 [facility] Hematocrit Auto (Bld) [Volum e fraction]Ordered By: Alexia Stacy on 09-21-2023 Hematocrit (Bld) [Volume fraction] 39.8 % 37-47 [facility] Laboratory - Chemistry and C hemistry - challengeOrdered By: Alexia Stacy on 09-21-2023 CO2 [Moles/Vol] 24.0 mmol/L 21.0-32.0 [facility] Natriuretic peptide B (Bld) [Mass/Vol] 463.1 pg/mL 0-100 [facility] Urea nitrogen/Creatinine [Mass ratio] 11.0 mg/mg 10-20 [facility] Laboratory - Hematology and Cell countsOrdered By: Alexia Stacy on 09-21-2023 Erythrocyte distribution width (RBC) [Entitic vol] 44.7 fL 35.1-43.9 [facility] Erythrocyte distribution width (RBC) [Ratio] 14.8 % 11.6-14.6 [facility] Immature granulocytes/100 WBC (Bld) 1.500 % 0.0-0.9 [facility] Comment on above: IG% - Immature Granu locytes (promyelocytes, myelocytes and metamyelocytes) > 1% indicates that a LEFT SHIFT is Present. MCH (RBC) [Entitic mass] 25.0 pg 27.0-32.0 [facility] Nucleated RBC/100 WBC (Bld) [Ratio] 0 % 0-5 [facility] MCHC Auto (RBC) [Mass/Vol]Or dered By: Alexia Stacy on 09-21-2023 MCHC (RBC) [Mass/Vol] 30.2 g/dL 32-36 [facility] No Panel InformationOrdered By: Alexia Stacy on 09-21-2023 Estimated GFR (MDRD) Amer 78 mL/min >60 [facility] Comment on above: GFR Calc Estimated GFR (MDRD) Non-Af Amer 65 mL/min >60 [facility] Comment on above: Non- GFR Calc Platelets bldOrdered By: Raphael Stacy on 09-21-2023 Platelets (Bld) [#/Vol] 362 10*3/uL 150-450 [facility] Serum or plasma calcium lamar urement (mass/volume)Ordered By: Alexia Stacy on 09-21-2023 Calcium [Mass/Vol] 8.7 mg/dL 8.5-10.1 [facility] Serum or plasma creatinine m easurement (mass/volume)Ordered By: Alexia Stacy on 09-21-2023 Creatinine [Mass/Vol] 1.00 mg/dL 0.55-1.02 [facility] Comment on above: The validity of the calculated GFR & GFRAA in patients over 70 years has not been determined. Clinical correlation is essential. Serum or plasma urea nitroge n measurement (mass/volume)Ordered By: Alexia Stacy on 09-21-2023 Urea nitrogen [Mass/Vol] 11 mg/dL - [facility] Thin prep Papanicolaou smear with manual screeningOrdered By: Alexia Stacy on 09-21-2023 Thin prep Papanicolaou smear with manual screening 04-12 [facility] No Panel Informationon 09-15 Radiology Result ACTIONABLE Abnormal [facility] Basophil percentageOrdered B y: Ha Echevarria on 08-12-2023 Chloride [Moles/Vol] 108 mmol/L 98-107 [facility] Cholesterol [Mass/Vol] 115 mg/dL <200 [facility] Comment on above: <200 mg/dL Desirable 200-240 mg/dL Borderline >240 mg/dL High Risk Glucose [Mass/Vol] 272 mg/dL 74-106 [facility] Comment on above: Glucose result great er than or equal to 200 mg/dLsuggests DIABETES MELLITUS per A.D.A. criteria. Potassium [Moles/Vol] 3.9 mmol/L 3.5-5.1 [facility] Sodium [Moles/Vol] 137 mmol/L 136-145 [facility] Triglyceride [Mass/Vol] 99 mg/dL <199 [facility] Comment on above: The drugs N-Acetylcy steine and Metamizole may falsely depress this assay.Serum Triglycerides Reference Interval Normal <150 mg/dL Borderline high 150 - 199 mg/dL High 200 - 499 mg/dL Very High > or = 500 mg/dL WBC (Bld) [#/Vol] 6.7 10*3/uL 4.4-11.0 [facility] Blood erythrocytes count (nu mber/volume)Ordered By: Ha Echevarria on 08-12-2023 RBC (Bld) [#/Vol] 4.30 10*6/uL 4.2-5.4 [facility] Blood hemoglobin measurement (mass/volume)Ordered By: Ha Echevarria on 08-12-2023 Hemoglobin (Bld) [Mass/Vol] 11.4 g/dL 12.0-15.0 [facility] Blood platelet mean volumeOr dered By: Ha Echevarria on 08-12-2023 Platelet mean volume (Bld) [Entitic vol] 9.9 fL 6.2-12.0 [facility] Determination of erythrocyte mean corpuscular volume (MCV)Ordered By: Ha Echevarria on 08-12-2023 MCV (RBC) [Entitic vol] 84.7 fL 81-99 [facility] Glucose Glucometer (BldC) [M ass/Vol]Ordered By: Aj Colon on 08-12-2023 Glucose [Mass/Vol] 216 mg/dL 74-106 [facility] Comment on above: MANAGEMENT OF PATIEN T CARE PER NURSING PROTOCOL Hematocrit Auto (Bld) [Volum e fraction]Ordered By: Ha Echevarria on 08-12-2023 Hematocrit (Bld) [Volume fraction] 36.4 % 37-47 [facility] Laboratory - Chemistry and C hemistry - challengeOrdered By: Ha Echevarria on 08-12-2023 CO2 [Moles/Vol] 24.0 mmol/L 21.0-32.0 [facility] Urea nitrogen/Creatinine [Mass ratio] 7.7 mg/mg 10-20 [facility] Laboratory - CoagulationOrde red By: Ha Echevarria on 08-12-2023 aPTT Coag (Bld) [Time] 46.2 s 24.1-36.2 [facility] Laboratory - Hematology and Cell countsOrdered By: Ha Echevarria on 08-12-2023 Erythrocyte distribution width (RBC) [Entitic vol] 44.0 fL 35.1-43.9 [facility] Erythrocyte distribution width (RBC) [Ratio] 14.5 % 11.6-14.6 [facility] MCH (RBC) [Entitic mass] 26.5 pg 27.0-32.0 [facility] MCHC Auto (RBC) [Mass/Vol]Or dered By: Ha Echevarria on 08-12-2023 MCHC (RBC) [Mass/Vol] 31.3 g/dL 32-36 [facility] No Panel InformationOrdered By: Ha Echevarria on 08-12-2023 Estimated Creatinine Clearance Calc 66.62 ml/min [facility] Estimated GFR (MDRD) Amer 87 mL/min >60 [facility] Comment on above: GFR Calc Estimated GFR (MDRD) Non-Af Amer 72 mL/min >60 [facility] Comment on above: Non- GFR Calc Troponin I High Sensitivity 2114 pg/mL 3.0-54.0 [facility] Comment on above: Critical Result(s) C alled at: 00:43:05 08/12/2023 by: DANA SAENZ TO PIPER ANDERSON RN (U) Results read back by same. Please Note: New Test Units and Gender Specific Reference Ranges. For more information see Policy Stat Procedure Holder High Sensitivity Troponin (TNIH) and attachments. Platelets bldOrdered By: Olman Echevarria on 08-12-2023 Platelets (Bld) [#/Vol] 278 10*3/uL 150-450 [facility] Serum or plasma calcium lamar urement (mass/volume)Ordered By: Ha Echevarria on 08-12-2023 Calcium [Mass/Vol] 8.3 mg/dL 8.5-10.1 [facility] Serum or plasma cholesterol in HDL measurement (mass/volume)Ordered By: Ha Echevarria on 08-12-2023 Cholesterol in HDL [Mass/Vol] 48 mg/dL >40 [facility] Comment on above: The drugs N-Acetylcy steine and Metamizole may falsely depress this assay. Reference Range HDL <40 mg/dL Low HDL Cholesterol HDL >or= 60 mg/dL High HDL Cholesterol Serum or plasma cholesterol in VLDL measurement (mass/volume)Ordered By: Ha Echevarria on 08-12-2023 Cholesterol in VLDL [Mass/Vol] 20 mg/dL 5-40 [facility] Serum or plasma creatinine m easurement (mass/volume)Ordered By: Ha Echevarria on 08-12-2023 Creatinine [Mass/Vol] 0.91 mg/dL 0.55-1.02 [facility] Comment on above: The validity of the calculated GFR & GFRAA in patients over 70 years has not been determined. Clinical correlation is essential. Serum or plasma low density lipoprotein (LDL) cholesterol measurement (mass/volume)Ordered By: Ha Echevarria on 08-12-2023 Cholesterol in LDL [Mass/Vol] 47 mg/dL 0-130 [facility] Serum or plasma urea nitroge n measurement (mass/volume)Ordered By: Ha Echevarria on 08-12-2023 Urea nitrogen [Mass/Vol] 7 mg/dL 7-18 [facility] Thin prep Papanicolaou smear with manual screeningOrdered By: Ha Bedoyahope on 08-12-2023 Thin prep Papanicolaou smear with manual screening 5 5-15 [facility] Absolute lymphocyte countOrd ered By: Placido Lupaco on 08-11-2023 Lymphocytes Auto (Unsp spec) [#/Vol] 1.43 10*3/uL 0.83-4.51 [facility] Basophil percentageOrdered B y: Placido Becky on 08-11-2023 Basophil percentage 0 SEEN /hpf 0-5 [facility] Basophils/100 WBC (Bld) 0.6 % 0-1 [facility] Bilirubin [Mass/Vol] 0.60 mg/dL 0.20-1.00 [facility] Comment on above: For patients on eltr ombopag therapy, use of Dimension Holder TBIL is not recommended. Chloride [Moles/Vol] 106 mmol/L 98-107 [facility] Eosinophils/100 WBC (Bld) 1.3 % 0-5 [facility] Glucose [Mass/Vol] 280 mg/dL 74-106 [facility] Comment on above: Glucose result great er than or equal to 200 mg/dLsuggests DIABETES MELLITUS per A.D.A. criteria. Neutrophils (Bld) [#/Vol] 3.4 10*3/uL 2.0-7.7 [facility] Neutrophils/100 WBC (Bld) 63.5 % 47-70 [facility] Potassium [Moles/Vol] 3.3 mmol/L 3.5-5.1 [facility] Protein [Mass/Vol] 6.8 g/dL 6.4-8.2 [facility] Sodium [Moles/Vol] 135 mmol/L 136-145 [facility] WBC (Bld) [#/Vol] 5.4 10*3/uL 4.4-11.0 [facility] Beta hCG serum qualOrdered B y: Placido Lupaco on 08-11-2023 Beta HCG ( test) Ql Negative [facility] Bilirubin Test strip Ql (U)O rdered By: Placido Pena on 08-11-2023 Bilirubin Ql (U) Negative Negative [facility] Blood erythrocytes count (nu mber/volume)Ordered By: Placido Pena on 08-11-2023 RBC (Bld) [#/Vol] 4.41 10*6/uL 4.2-5.4 [facility] Blood hemoglobin measurement (mass/volume)Ordered By: Placido Pena on 08-11-2023 Hemoglobin (Bld) [Mass/Vol] 11.8 g/dL 12.0-15.0 [facility] Blood lymphocytes/100 leukoc ytesOrdered By: Placido Pena on 08-11-2023 Lymphocytes/100 WBC (Bld) 26.6 % 19-41 [facility] Blood monocytes/100 leukocyt esOrdered By: Placido Pena on 08-11-2023 Monocytes/100 WBC (Bld) 7.6 % 0-10 [facility] Blood platelet mean volumeOr dered By: Placido Pena on 08-11-2023 Platelet mean volume (Bld) [Entitic vol] 10.1 fL 6.2-12.0 [facility] Determination of erythrocyte mean corpuscular volume (MCV)Ordered By: Placido Pena on 08-11-2023 MCV (RBC) [Entitic vol] 85.7 fL 81-99 [facility] Hematocrit Auto (Bld) [Volum e fraction]Ordered By: Placido Pena on 08-11-2023 Hematocrit (Bld) [Volume fraction] 37.8 % 37-47 [facility] INR in Blood by Coagulation assayOrdered By: Placido Pena on 08-11-2023 INR Coag (Bld) [Relative time] 1.1 {INR} [facility] Ketones Test strip Ql (U)Ord ered By: Placido Pena on 08-11-2023 Ketones Ql (U) 5 mg/dl Negative [facility] Laboratory - Chemistry and C hemistry - challengeOrdered By: Placido Pena on 08-11-2023 ALP [Catalytic activity/Vol] 91 U/L 45-117 [facility] ALT [Catalytic activity/Vol] 105 U/L 13-56 [facility] CO2 [Moles/Vol] 25.0 mmol/L 21.0-32.0 [facility] Globulin (S) [Mass/Vol] 3.6 g/dL 2.2-4.2 [facility] Urea nitrogen/Creatinine [Mass ratio] 8.0 mg/mg 10-20 [facility] Laboratory - CoagulationOrde red By: Placido Pena on 08-11-2023 aPTT Coag (Bld) [Time] 24.6 s 24.1-36.2 [facility] PT Coag (PPP) [Time] 14.1 s 11.7-14.9 [facility] Laboratory - Hematology and Cell countsOrdered By: Placido Pena on 08-11-2023 Erythrocyte distribution width (RBC) [Entitic vol] 45.6 fL 35.1-43.9 [facility] Erythrocyte distribution width (RBC) [Ratio] 14.6 % 11.6-14.6 [facility] Immature granulocytes/100 WBC (Bld) 0.400 % 0.0-0.9 [facility] Comment on above: IG% - Immature Granu locytes (promyelocytes, myelocytes and metamyelocytes) > 1% indicates that a LEFT SHIFT is Present. MCH (RBC) [Entitic mass] 26.8 pg 27.0-32.0 [facility] Nucleated RBC/100 WBC (Bld) [Ratio] 0 % 0-5 [facility] MCHC Auto (RBC) [Mass/Vol]Or dered By: Placido Pena on 08-11-2023 MCHC (RBC) [Mass/Vol] 31.2 g/dL 32-36 [facility] Mucus LM Ql (Urine sed)Order ed By: Placido Pena on 08-11-2023 Mucus Ql (Urine sed) 0 SEEN /hpf [facility] Nitrite Test strip Ql (U)Ord ered By: Placido Pena on 08-11-2023 Nitrite Ql (U) Negative Negative [facility] No Panel InformationOrdered By: Placido Pena on 08-11-2023 D-Dimer Quantitative (PE/DVT) 0.72 FEU/ug/m 0.27-0.49 [facility] Comment on above: D-Dimer ELEVATED (>0 .49): Additional studies and clinicalassessments are indicated to conclude diagnosis of:Deep Vein Thrombosis (DVT) or Pulmonary Embolism (PE)CRITICAL VALUE VERIFIED. CALLED TO [id number] Aline Coombs.RESULTS READ BACK BY SAME . Estimated Creatinine Clearance Calc 53.65 ml/min [facility] Estimated GFR (MDRD) Amer 68 mL/min >60 [facility] Comment on above: GFR Calc Estimated GFR (MDRD) Non-Af Amer 56 mL/min >60 [facility] Comment on above: Non- GFR Calc Troponin I High Sensitivity 1494 pg/mL 3.0-54.0 [facility] Comment on above: TO Critical Result(s ) Called at: 18:38:20 08/11/2023 by: JIL CHRISTIAN TO REINALDO REYES. Results read back by same. Please Note: New Test Units and Gender Specific Reference Ranges. For more information see Policy Stat Procedure Holder High Sensitivity Troponin (TNIH) and attachments. Platelets bldOrdered By: Adeline Pena on 08-11-2023 Platelets (Bld) [#/Vol] 311 10*3/uL 150-450 [facility] Protein Test strip Ql (U)Ord ered By: Placido Pena on 08-11-2023 Protein Ql (U) 30 mg/dl Negative [facility] Serum or plasma albumin lamar urement (mass/volume)Ordered By: Placido Pena on 08-11-2023 Albumin [Mass/Vol] 3.2 g/dL 3.2-5.0 [facility] Serum or plasma albumin/glob ulin mass ratioOrdered By: Placido Pena on 08-11-2023 Albumin/Globulin [Mass ratio] 0.9 {ratio} 0.9-2.4 [facility] Serum or plasma calcium lamar urement (mass/volume)Ordered By: Placido Pena on 08-11-2023 Calcium [Mass/Vol] 9.0 mg/dL 8.5-10.1 [facility] Serum or plasma creatinine m easurement (mass/volume)Ordered By: Placido Pena on 08-11-2023 Creatinine [Mass/Vol] 1.13 mg/dL 0.55-1.02 [facility] Comment on above: The validity of the calculated GFR & GFRAA in patients over 70 years has not been determined. Clinical correlation is essential. Serum or plasma urea nitroge n measurement (mass/volume)Ordered By: Placido Pena on 08-11-2023 Urea nitrogen [Mass/Vol] 9 mg/dL 7-18 [facility] Squamous epithelial cells de tection in urine sediment by light microscopyOrdered By: Placido Pena on 08-11-2023 Epithelial cells.squamous LM Ql (Urine sed) 0 SEEN /hpf 5-10 [facility] Thin prep Papanicolaou smear with manual screeningOrdered By: Placido Pena on 08-11-2023 Thin prep Papanicolaou smear with manual screening 60 U/L 15-37 [facility] Thin prep Papanicolaou smear with manual screening 4 5-15 [facility] Urine blood detectionOrdered By: Placido Pena on 08-11-2023 RBC Ql (U) Negative Negative [facility] RBC Ql (U) 0 SEEN /hpf 0-5 [facility] Urine clarityOrdered By: Adeline Pena on 08-11-2023 Clarity (U) Clear Clear [facility] Urine color determinationOrd ered By: Placido Pena on 08-11-2023 Color (U) Yellow Yellow [facility] Urine glucose detectionOrder ed By: Placido Pena on 08-11-2023 Glucose Ql (U) 250 mg/dl Normal [facility] Urine leukocyte esterase det ection by dipstickOrdered By: Placido Pena on 08-11-2023 Leukocyte esterase Test strip Ql (U) Negative Negative [facility] Urine pHOrdered By: Placido aguilar on 08-11-2023 pH (U) 6.0 [pH] 5.0 - 8.0 [facility] Urine sediment bacteria coun t by microscopy (number/high power field)Ordered By: Placido Pena on 08-11-2023 Bacteria LM.HPF (Urine sed) [#/Area] 0 /[HPF] None Seen [facility] Urine specific gravity measu rementOrdered By: Placido Pena on 08-11-2023 Specific gravity (U) [Rel density] 1.015 1.002-1.030 [facility] Urobilinogen Auto test strip Ql (U)Ordered By: Placido Pena on 08-11-2023 Urobilinogen Ql (U) Normal mg/dl Normal [facility] XR Shoulder - right 3 Viewso n 02-24-2023 IMPRESSION: No acute osseous abnormality. Pharmacovigilance Safety Expert: HODA Transcribe Date/Time: Feb 24 2023 12:12P Dictated by : VIOLETTE JOSEPH DO This examination was interpreted and the report reviewed and electronically signed by: VIOLETTE JOSEPH DO on Feb 24 2023 12:14PM [facility] DIVISION OF RADIOLOGY * * *Final Report* * * DATE OF EXAM: Feb 19 2023 1:23PM WOX 5253 - XR SHLDR >/=3V AP/SEBASTIÁN AP/OTHR RT / PROCEDURE REASON: multiple diagnoses * * * * Physician Interpretation * * * * EXAMINATION: XR SHLDR >/=3V AP/SEBASTIÁN AP/OTHR RT PATIENT/TECHNOLOGIST PROVIDED HISTORY: Proximal right humerus pain x 6 months without injury CLINICAL INFORMATION: 42 years old Female with Chronic right shoulder pain TECHNIQUE: XR SHLDR >/=3V AP/SEBASTIÁN AP/OTHR RT Laterality: RIGHT Number of different views (projections): 3 COMPARISON: None RESULT: Glenohumeral joint space is maintained with small inferior glenoid osteophyte. Acromioclavicular joint space is maintained. Acromiohumeral interval is maintained. No fracture. DIVISION OF RADIOLOGY Provider, [facility] - 02/24/2023 * * *Final Report* * * DATE OF EXAM: Feb 19 2023 1:23PM WOX 5253 - XR SHLDR >/=3V AP/SEBASTIÁN AP/OTHR RT / PROCEDURE REASON: multiple diagnoses * * * * Physician Interpretation * * * * EXAMINATION: XR SHLDR >/=3V AP/SEBASTIÁN AP/OTHR RT PATIENT/TECHNOLOGIST PROVIDED HISTORY: Proximal right humerus pain x 6 months without injury CLINICAL INFORMATION: 42 years old Female with Chronic right shoulder pain TECHNIQUE: XR SHLDR >/=3V AP/SEBASTIÁN AP/OTHR RT Laterality: RIGHT Number of different views (projections): 3 COMPARISON: None RESULT: Glenohumeral joint space is maintained with small inferior glenoid osteophyte. Acromioclavicular joint space is maintained. Acromiohumeral interval is maintained. No fracture. IMPRESSION IMPRESSION: No acute osseous abnormality. Pharmacovigilance Safety Expert: PSCB Transcribe Date/Time: Feb 24 2023 12:12P Dictated by : VIOLETTE JOSEPH DO This examination was interpreted and the report reviewed and electronically signed by: VIOLETTE JOSEPH DO on Feb 24 2023 12:14PM EST [facility] XR Shoulder - right 3 ViewsO rdered By: [facility] Provider on 02-24-2023 [facility] EB SCREENINGon 02-23-2023 [facility] XR Shoulder - right 3 Viewso n 02-19-2023 Radiology Study observation (narrative) [facility] HbA1c (Bld)on 01-27-2023 HbA1c (d) [Mass fraction] 10 % Abnormal 4 - 6 % [facility] XR FOOT RIGHT (MIN 3 VIEWS)o n 07-10-2022 XR FOOT RIGHT (MIN 3 VIEWS) XR FOOT RIGHT (MIN 3 VIEWS) CLINICAL HISTORY: pain no history of trauma reported COMPARISON: None FINDINGS: Three views of the right foot are submitted. No acute fractures. No dislocations. No focal bony abnormalities No radiographic foreign body IMPRESSION: NO ACUTE FRACTURES Interpreted by: Mateus Cartwright MD Signed by: Mateus Cartwright MD 07/10/22 Final result Normal [facility] NO ACUTE FRACTURES [facility] RADIOLOGY XR FOOT RIGHT (MIN 3 VIEWS) CLINICAL HISTORY: pain no history of trauma reported COMPARISON: None FINDINGS: Three views of the right foot are submitted. No acute fractures. No dislocations. No focal bony abnormalities No radiographic foreign body [facility] RADIOLOGY Mateus Cartwright MD - 07/10/2022 XR FOOT RIGHT (MIN 3 VIEWS) CLINICAL HISTORY: pain no history of trauma reported COMPARISON: None FINDINGS: Three views of the right foot are submitted. No acute fractures. No dislocations. No focal bony abnormalities No radiographic foreign body IMPRESSION: NO ACUTE FRACTURES [employer] Work Phone: Radiology Study observation (narrative) NIKOLAS [facility]ANE [facility] [employer] Work Phone: XR FOOT RIGHT (MIN 3 VIEWS)O rdered By: Mateus Cartwright on 07-10-2022 NIKOLAS MALDONADO [facility] [employer] Work Phone: UR Microalbumin/Creatinine R atio Randomon 08-20-2021 Microalbumin/creatinine Ratio 23.9 mg/G Normal 0.0-30.0 [facility] Comment on above: Performed By: #### U MACR #### [facility] [address] [place] [address] UR Creatinine Random 117.2 mg/dL Normal Not Establ [facility] Comment on above: Performed By: #### U MACR #### [facility] [address] [place] [address] UR Microalbumin Random 2.80 mg/dL Critically high Not Esta bl [facility] Comment on above: Performed By: #### U MACR #### [facility] [address] [place] [address] BASIC METABOLIC PANELon 07-30 Anion gap [Moles/Vol] 12 mmol/L Normal 10 - 20 [facility] Comment on above: Performed By: #### B MP #### [address] [id number] Calcium [Mass/Vol] 9.1 mg/dL Normal 8.6 - 10.3 [facility] Comment on above: Performed By: #### B MP #### [address] [id number] Chloride [Moles/Vol] 103 mmol/L Normal 98 - 107 [facility] Comment on above: Performed By: #### B MP #### [address] [id number] Creatinine [Mass/Vol] 1.01 mg/dL Normal 0.50 - 1.05 [facility] Comment on above: Performed By: #### B MP #### [address] [id number] GFR- AM. >60 Normal >60 [facility] Comment on above: Result Comment: CALC ULATIONS OF ESTIMATED GFR ARE PERFORMED USING THE MDRD STUDY EQUATION FOR THE IDMS-TRACEABLE CREATININE METHODS. CLIN CHEM 2007;53:766-72 Performed By: #### B MP #### [address] [id number] GFR-NON AM. >60 Normal >60 [facility] Comment on above: Performed By: #### B MP #### [address] [id number] Glucose [Mass/Vol] 312 mg/dL High 74 - 99 [facility] Comment on above: Performed By: #### B MP #### [address] [id number] HCO3 (Bld) [Moles/Vol] 22 mmol/L Normal 21 - 32 [facility] Comment on above: Performed By: #### B MP #### [address] [id number] Potassium [Moles/Vol] 3.6 mmol/L Normal 3.5 - 5.3 [facility] Comment on above: Performed By: #### B MP #### [address] [id number] Sodium [Moles/Vol] 133 mmol/L Low 136 - 145 [facility] Comment on above: Performed By: #### B MP #### [address] [id number] Urea nitrogen [Mass/Vol] 12 mg/dL Normal 6 - 23 [facility] Comment on above: Performed By: #### B MP #### [address] [id number] BNPon 08-14-2021 Natriuretic peptide B (Bld) [Mass/Vol] 35 pg/mL Normal 0 - 99 [facility] Comment on above: Result Comment: . <1 00 pg/mL - Heart failure unlikely 100-299 pg/mL - Intermediate probability of acute heart . failure exacerbation. Correlate with clinical . context and patient history. >=300 pg/mL - Heart Failure likely. Correlate with clinical . context and patient history. BNP testing is performed using different testing methodology at [facility] than at other [facility]. Direct result comparisons should only be made within the same method. Performed By: #### B NP2 #### [address] [id number] CBC AND DIFFERENTIALon 08-14 % AUTOMATED IMMATURE GRAN 0.2 % Normal 0.0 - 0.9 [facility] Comment on above: Result Comment: Jojo ture Granulocyte Count (IG) includes promyelocytes, myelocytes and metamyelocytes but does not include bands. Percent differential counts (%) should be interpreted in the context of the absolute cell counts (cells/L). Performed By: #### C BCDF #### [address] [id number] Basophils (Bld) [#/Vol] 0.02 10*3/uL Normal 0.00 - 0.1 0 [facility] Comment on above: Performed By: #### C BCDF #### [address] [id number] Basophils/100 WBC (Bld) 0.3 % Normal 0.0 - 2.0 [facility] Comment on above: Performed By: #### C BCDF #### [address] [id number] Eosinophils (Bld) [#/Vol] 0.09 10*3/uL Normal 0.00 - 0.70 [facility] Comment on above: Performed By: #### C BCDF #### [address] [id number] Eosinophils/100 WBC (Bld) 1.4 % Normal 0.0 - 6.0 [facility] Comment on above: Performed By: #### C BCDF #### [address] [id number] Erythrocyte distribution width (RBC) [Ratio] 13.5 % Normal 11.5 - 14.5 [facility] Comment on above: Performed By: #### C BCDF #### [address] [id number] Hematocrit (Bld) [Volume fraction] 41.1 % Normal 36.0 - 46.0 [facility] Comment on above: Performed By: #### C BCDF #### [address] [id number] Hemoglobin (Bld) [Mass/Vol] 13.0 g/dL Normal 12.0 - 16.0 [facility] Comment on above: Performed By: #### C BCDF #### [address] [id number] Lymphocytes (Bld) [#/Vol] 2.23 10*3/uL Normal 1.20 - 4.80 [facility] Comment on above: Performed By: #### C BCDF #### [address] [id number] Lymphocytes/100 WBC (Bld) 34.5 % Normal 13.0 - 44.0 [facility] Comment on above: Performed By: #### C BCDF #### [address] [id number] MCHC (RBC) [Mass/Vol] 31.6 g/dL Low 32.0 - 36.0 [facility] Comment on above: Performed By: #### C BCDF #### [address] [id number] MCV (RBC) [Entitic vol] 85 fL Normal 80 - 100 [facility] Comment on above: Performed By: #### C BCDF #### [address] [id number] Monocytes (Bld) [#/Vol] 0.49 10*3/uL Normal 0.10 - 1.0 0 [facility] Comment on above: Performed By: #### C BCDF #### [address] [id number] Monocytes/100 WBC (Bld) 7.6 % Normal 2.0 - 10.0 [facility] Comment on above: Performed By: #### C BCDF #### [address] [id number] Neutrophils (Bld) [#/Vol] 3.63 10*3/uL Normal 1.20 - 7.70 [facility] Comment on above: Performed By: #### C BCDF #### [address] [id number] Neutrophils/100 WBC (Bld) 56.0 % Normal 40.0 - 80.0 [facility] Comment on above: Performed By: #### C BCDF #### [address] [id number] Platelets (Bld) [#/Vol] 374 10*3/uL Normal 150 - 450 [facility] Comment on above: Performed By: #### C BCDF #### [address] [id number] RBC 4.85 x10E12/L Normal 4.00 - 5.20 [facility] Comment on above: Performed By: #### C BCDF #### [address] [id number] WBC (Bld) [#/Vol] 6.5 10*3/uL Normal 4.4 - 11.3 [facility] Comment on above: Performed By: #### C BCDF #### [address] [id number] CHEST 1 VIEWon 08-14-2021 CHEST 1 VIEW Patient Name: PATT CRANE STUDY: CHEST 1 VIEW; 08/14/2021 5:54 pm INDICATION: Chest Pain. COMPARISON: None. ACCESSION NUMBER(S): [id number] ORDERING CLINICIAN: JIL YUN FINDINGS: AP radiograph of the chest was provided. CARDIOMEDIASTINAL SILHOUETTE: Cardiomediastinal silhouette is normal in size and configuration. LUNGS: Lungs are clear. ABDOMEN: No remarkable upper abdominal findings. BONES: No acute osseous changes. IMPRESSION: 1. No evidence of acute cardiopulmonary process. Electronically signed by: VÍCTOR MOORE MD Normal [facility] CT ANGIO CHEST FOR PEon - CT ANGIO CHEST FOR PE Patient Name: PATT CRANE STUDY: CT ANGIO CHEST FOR PE; 08/14/2021 7:44 pm INDICATION: cp, sob. COMPARISON: None. ACCESSION NUMBER(S): [id number] ORDERING CLINICIAN: MARQUISE PENA TECHNIQUE: Helical data acquisition of the chest was obtained after intravenous administration of 90 mL Omnipaque 350. No immediate complication seen.. Images were reformatted in coronal and sagittal planes. Axial and coronal MIP images were created and reviewed. FINDINGS: POTENTIAL LIMITATIONS OF THE STUDY: Suboptimal opacification of pulmonary arterial tree due to timing of the bolus. HEART AND VESSELS: No discrete filling defects within the main pulmonary artery or its branches. Evaluation in the subsegmental level of bilateral pulmonary artery are limited. Main pulmonary artery and its branches are normal in caliber. The thoracic aorta is of normal course and caliber without vascular calcifications. No coronary artery calcifications are seen.The study is not optimized for evaluation of coronary arteries. The cardiac chambers are not enlarged. No evidence of pericardial effusion. MEDIASTINUM AND LAMONTE, LOWER NECK AND AXILLA: The visualized thyroid gland is within normal limits. No evidence of thoracic lymphadenopathy by CT criteria. Esophagus appears within normal limits as seen. LUNGS AND AIRWAYS: The trachea and central airways are patent. No endobronchial lesion. Bilateral lungs are clear. No focal consolidation, pleural effusion or pneumothorax. No suspicious pulmonary nodule or lung mass. UPPER ABDOMEN: The visualized subdiaphragmatic structures demonstrate no remarkable findings. CHEST WALL AND OSSEOUS STRUCTURES: There are no suspicious osseous lesions. Multilevel degenerative changes are present IMPRESSION: 1. No filling defect to suggest acute pulmonary embolism. 2. No acute cardiopulmonary abnormality. Electronically signed by: ROD ZIEGLER MD Normal [facility] Clinical Event Noteon 2020 Clinical Event Note Clinical Event: Clinical Event Note: Details Patient is a 41-year-old -Prydeinig female presents ED with chest pain. Patient states that the pain is located in the center of her chest and radiates to the right side of her chest. Patient states that she works at [employer] and lifts a lot of heavy objects some as much as 50 pounds in weight and she says that 2 days ago while lifting she developed this pain in her chest. Patient states that the pain is exacerbated with lifting, coughing or taking a deep breath. Patient denies any history of FL or stroke but did have a TIA in 2010. Patient states she is also diabetic, type II and takes insulin. Patient is allergic to penicillin. Patient states she is currently asymptomatic. Electronic Signatures: Jil Yun (PAC) (Signed 14-Aug-2021 16:11) Authored: Clinical Event Note Last Updated: 14-Aug-2021 16:11 by Jil Yun (PAC) Normal [facility] D-DIMER, VTE EXCLUSIONon D-DIMER, VTE EXCLUSION 391 ng/mL FEU Normal < or = 500 [facility] Comment on above: Result Comment: The VTE Exclusion D-Dimer assay is reported in ng/mL Fibrinogen Equivalent Units (FEU). Per manufacturers instructions for use, a value of less than 500 ng/mL (FEU) may help to exclude DVT or PE in outpatients when the assay is used with a clinical pretest probability assessment. (AEMR must utilize and document eCalc Wells Score Deep Vein Thrombosis Risk for DVT exclusion only; Emergency Department should utilize Guidelines for Emergency Department Use of the VTE Exclusion D-Dimer and Clinical Pretest probability assessment model for DVT or PE exclusion.) Performed By: #### D IMEX #### [address] [id number] Provider Note - ED v3on 07-30 Provider Note - ED v3 Provider Note: Chart Review: ED NOTES ED NOTES: HPI: The patient is a 41-year-old woman with past medical history of peripartum cardiomyopathy who is no longer taking any medications for this as well as diabetes on Metformin who presents to the Emergency Department with a chief complaint of chest pain and shortness of breath for the last 3 days. Patient denies any swelling in her legs, hemoptysis or fevers or chills and reports that the symptoms are worse whenever she moves and completely resolves when she is not moving. Denies any pleuritic component she denies any black or bloody stools or nausea or vomiting. Denies any urinary complaints. Patient denies any sick contacts. Patient reports that she was lifting something heavy today and noticed the pain afterwards and was predominantly in the anterior central portion of her chest. Denies any radiation. Denies any family history of heart disease at a young age. PAST MEDICAL HISTORY: as per HPI ALLERGIES: Nursing notes and EMR reviewed. MEDICATIONS: Nursing notes and EMR reviewed. SOCIAL HISTORY: [denies] tobacco use, [denies] alcohol use REVIEW OF SYSTEMS All systems listed below were reviewed and are negative unless otherwise noted in the report. [CONSTITUTIONAL] [EYES] [ENT] [CARDIOVASCULAR] [RESPIRATORY] [GASTROINTESTINAL] [GENITOURINARY] [MUSCULOSKELETAL] [DERMATOLOGICAL] [NEUROLOGICAL] PHYSICAL EXAM: VITAL SIGNS: Nursing notes reviewed. GENERAL: Alert and interactive EYES: Eyes track. No injection. ENT: Airway patent. Mucus membranes moist. RESPIRATORY: Nonlabored breathing. Chest rise symmetric. Clear to auscultation bilaterally. Anterior chest wall tenderness at the sternal margin laterally where the cartilage inserts. CARDIOVASCULAR: [Regular rate.] [Regular rhythm.] GASTROINTESTINAL: No distension. Nontender. MUSCULOSKELETAL: No deformity. No swelling. NEUROLOGICAL: Awake. Moves extremities SKIN: Warm. Dry. DIAGNOSTIC STUDIES Labs: - Please see EMR Radiology: - Please see EMR [EKG: ] EKG Per my interpretation: Electrocardiogram ECG RATE: 95 RHYTHM: [Normal sinus] AXIS: Left axis INTERVALS: Right bundle branch block pattern ST-T WAVE CHANGES: [Normal] ABNORMALITIES/COMPARIS ON: No previous EKG to compare with, no ST segment elevation or depression. Emergency Department Course / Medical Decision Making The patient is admitted to the Emergency Department for evaluation of above. Complete history and physical examination was performed by me. Electronic medical record reviewed. Patient is presenting with chest pain that seems musculoskeletal however given her history as well as the right bundle branch block pattern on the EKG, I did obtain a CTA pulmonary angiogram as well as blood work and chest x-ray. Patient treated with Tylenol Motrin and topical lidocaine. Do not have a baseline EKG to compare with so this could be her baseline given her history of peripartum cardiomyopathy. CTA was negative for PE which is reassuring. Patient did not have leukocytosis or anemia. BNP was not elevated and troponin was negative. She was slightly hyperglycemic but does have a known history of diabetes and is taking Metformin. Most likely cause of her presentation is musculoskeletal pain given her work-up today and the location and reproducibility. Low suspicion for other life-threatening causes and do not see any evidence of dissection or Boerhaave's. Doubt peptic ulcer disease. Patient was encouraged to follow-up with her regular doctor as well as her rn stars. The work-up and plan were discussed with the patient/caregiver and questions were answered regarding the ED visit. Educational materials were provided as well as return precautions including returning for any persisting or worsening symptoms. Patient was recommended to follow-up with PCP in the next few days in addition to any potential specialists that were discussed. The patient/family expressed understanding and agreed to the described plan. Patient was discharged in stable condition. DIAGNOSIS: Chest pain DISPOSITION: 1) discharged home [2) Please see Exit Care and discharge instructions for complete details.] HISTORY OF PRESENTING ILLNESS PATT is a 41 year old Female and was seen by me at 14-Aug-2021 16:09 for a chief complaint of chest pain (States that she has pain with movement midsternal. States she was lifting boxes at work that are about 50 lbs. No pain currently.)(1). Triage Information: Most recent Vital Sign Value Date Temp (F): 97.3 08-14-2021 15:51 Temp (C): 36.3 08-14-2021 15:51 Heart Rate (beats/min): 98 08-14-2021 15:51 Respirations (breaths/min): 20 08-14-2021 15:51 SpO2 (%): 98 08-14-2021 15:51 BP Systolic (mm Hg): 178 08-14-2021 15:51 BP Diastolic (mm Hg): 99 08-14-2021 15:51 PAST MEDICAL HISTORY ALLERGIES/INTOLERANCES : Allergy Allerge (more content not included)... Normal [facility] Risk Screen - Adult Emergenc yon 08-14-2021 Risk Screen - Adult Emergency Preferred Language: Preferred Language: Preferred Language for Discussing Health Care (patient/designee)Engl aldo Advanced Directives: Advance Directive/DNRno Family Violence Adult: Abuse Screen: Are you or have you been threatened or abused physically, emotionally, or sexually by anyoneno Learning Assessment (Patient): Learning Assessment (Patient): Patient is Able to be Assessed for Learningyes Factors Influencing Readiness to Learnacuteness of illness Factors that Impact Ability to Learnnone Devices/Methods Used to Communicatenone Learning Preferencesaudio Cultural Considerationsnone Developmental Considerationsnone Mormon Considerationsnone Learning Assessment (Other Learner): Learning Assessment (Other Learner): Other learner availableno Pressure Injury/TB/Substance: Pressure Injury: Do you have a coughno Smoking Statusnever smoker Alcohol Useoccasionally Drug Usedenies Drug 2 Usedenies Admission Risk Screen: Significant IndicatorsComplete CAGE: CAGE: Is this an injured patient at a Trauma Center ([facility]/[facility]): no Electronic Signatures: Baldev Corrigan (RN) (Signed 14-Aug-2021 15:57) Authored: Preferred Language, Advanced Directives, Family Violence Adult, Learning Assessment (Patient), Learning Assessment (Other Learner), Pressure Injury/TB/Substance, Pressure Injury, CAGE Last Updated: 14-Aug-2021 15:57 by Baldev Corrigan (RN) Normal [facility] TROPONIN Ion 08-14-2021 Troponin I.cardiac [Mass/Vol] ng/mL Normal 0.00 - 0.03 [facility] Comment on above: Result Comment: LESS THAN 0.04 NG/ML: NEGATIVE REPEAT TESTING IN THREE TO SIX HOURS IF CLINICALLY INDICATED. 0.04 - 0.5 NG/ML: CONSISTENT WITH POSSIBLE CARDIAC DAMAGE AND POSSIBLE INCREASED CLINICAL RISK. SERIAL MEASUREMENTS MAY HELP ASSESS EXTENT OF MYOCARDIAL DAMAGE. >0.5 NG/ML: CONSISTENT WITH CARDIAC DAMAGE, INCREASED CLINICAL RISK AND MYOCARDIAL INFARCTION. SERIAL MEASUREMENTS MAY HELP ASSESS EXTENT OF MYOCARDIAL DAMAGE. . Note: Troponin I testing is performed using different testing methodology at [facility] than at other [facility]. Direct result comparisons should only be made within the same method. Performed By: #### T ROP2 #### [address] [id number] Triage - EDon 08-14-2021 Triage - ED Quick Triage: Are You no Have You Given In The Last 6 Weeksno Are You Currently Breastfeedingno Chart Review: ARRIVAL INFORMATION Mode of Arrival: private vehicle CHIEF COMPLAINT PATT CRANE is a Female patient with a chief complaint of chest pain (States that she has pain with movement midsternal. States she was lifting boxes at work that are about 50 lbs. No pain currently.). Triage Date/Time: 14-Aug-2021 15:51 JOSTIN: 3 Pain Rating (0-10): 0 = None Vital Signs: Temperature: 97.3F ( 36.3C) taken temporal Blood Pressure: 178/99 Mean: Heart Rate: 98 Respiratory Rate: 20 Pulse Oximetry: 98% on room air, no respiratory support. Height: 5 feet 2.00 inches. 157.4 CM Weight: 189.5 pounds. Calculated 86.0 kg. (stated) Calculated BMI (kg/m2): 34.712 Calculated BSA (m2) 1.94 [place] Coma Scale: Best Eye Response: (E4) spontaneous Best Motor Response: (M6) obeys commands Best Verbal Response: (V5) oriented [place] Score: 15 Cough lasting greater than 3 weeks: no Patient immunocompromised related to: N/A Allergies: yes Patient has homicidal thoughts: no Symptoms Are POSITIVE For: pain Symptoms Are Negative For: anxiety, chills, diaphoresis, dyspnea, headache, loss of consciousness, nausea, numbness, tingling and weakness Risk Screens Suicide Risk Screen In the Past Month: Have you wished you were or wished you could go to sleep and not wake up no In the Past Month: Have you had any actual thoughts of killing yourself no In Your Lifetime: Have you ever done anything, started to do anything, or prepared to do anything to end your life no Geller Fall Scale Screening Has the patient fallen before (or is the patient in the ED as a result of a fall) has not had a fall Does the patient have an impaired gait does not have impaired gait Is the patient cognitively impaired not cognitively impaired Interventions: Geller Fall Interventions: LOW INTERVENTIONS: *patient oriented to surroundings and call system, * patient/family falls education completed and documented, *patients fall status communicated during bedside handoff, *whiteboard updated, *mode of toileting discussed with patient, *bed in low position with brakes locked, *call light in reach, * non-skid footwear TRAVEL HISTORY Travel History Coronavirus Screening: no exposure or symptoms Travel Exposure History: NO travel to International locations in the past 30 days PAIN Pain Scale Used: HENRIQUE Pain Rating (0-10): 0 = None Past Medical History: Past Medical History Reviewedyes Electronic Signatures: Baldev Corrigan) (Signed 14-Aug-2021 15:56) Entered: Risk Screens, Pain, Travel History, Chart Review, Scores, Past Medical History Authored: Quick Triage, Risk Screens, Pain, Travel History, Chart Review, Scores, Past Medical History Last Updated: 14-Aug-2021 15:56 by Baldev Corrigan (RN) Normal [facility] Surgical Specimenon 01-17-20 Surgical Specimen [facility] [address] [place] [address] FINAL SURGICAL PATHOLOGY REPORT Patient Name: PATT CRANE Accession No: [id number] Age Sex: 1980 Location: [facility] Account No: [id number] Collected: 01/17/2021 Med Rec No: [id number] Received: 01/20/2021 Attend Phys: MIKE MUHAMMAD Completed: 01/21/2021 Perform Phys: MIKE MUHAMMAD FINAL DIAGNOSIS: ENDOMETRIAL BIOPSY: SECRETORY ENDOMETRIUM FRAGMENTS CONSISTENT WITH BENIGN ENDOMETRIAL POLYP RENE/RENE CLINICAL INFORMATION: Dysfunctional uterine bleeding. SPECIMEN: EMB Endometial Biopsy GROSS DESCRIPTION: Received is one container labeled with the patient's name and designated EMB. The specimen consists of portions of tabor-red soft tissue 2 x 2 x 0.3 cm in aggregate. The specimen is submitted in toto in one cassette. RENE/STUART CPT: 07605 X1 Alisia WAGNER M.D. 01/21/2021 Electronically signed out by Page 1 of 1 Invalid Interpretation Code [facility] Comment on above: Performed By: #### S UR #### [address] [address] Otheron 12-20-2020 ENLARGED UTERUS. 4 C M COMPLEX MASS UTERINE FUNDUS, SUSPECTED UTERINE FIBROID. 2 CM COMPLEX HYPOECHOIC LESION LEFT OVARY, PROBABLE CORPUS LUTEAL CYST. FREE FLUID IN POSTERIOR CUL-DE-SAC. NORMAL SIZE OVARIES. NO ABNORMAL ADNEXAL MASS. [facility], [place] PELVIC TRANSABDOMINA L AND TRANSVAGINAL SONOGRAM REASON FOR EXAMINATION: Menorrhagia with regular cycle. LMP: 11/28/2020. 1 para 1. COMPARISON: NONE FINDINGS: On the transabdominal exam, the uterus is anteverted and measures 9.8 x 7.7 x 5.6 cm. The uterus has a volume of 221 mL. There is free fluid within the posterior cul-de-sac. No abnormal adnexal mass. A transvaginal exam was performed to better visualize the uterus and adnexal structures. The endometrium measures 8 mm in AP diameter. Within the uterine fundus there is a complex rounded heterogeneous hypoechoic solid mass which measures 4.7 x 4 x 4 cm. There are linear shadowing bands within the mass. This is probably secondary to uterine fibroid. There are nabothian cysts within the cervix. The right ovary has a volume of 3.7 ml. The left ovary has a volume of 6.6 ml. Within this ovary there is a rounded hypoechoic complex lesion measuring 2.1 x 1.8 x 1.2 cm, suspected corpus luteal cyst. Arterial and venous flow are visualized in both ovaries on color doppler imaging. [facility]- [place], [place] Bry, Chpo Incoming Radiant Results From [employer] - 12/20/2020 2:10 PM EST PELVIC TRANSABDOMINAL AND TRANSVAGINAL SONOGRAM REASON FOR EXAMINATION: Menorrhagia with regular cycle. LMP: 11/28/2020. 1 para 1. COMPARISON: NONE FINDINGS: On the transabdominal exam, the uterus is anteverted and measures 9.8 x 7.7 x 5.6 cm. The uterus has a volume of 221 mL. There is free fluid within the posterior cul-de-sac. No abnormal adnexal mass. A transvaginal exam was performed to better visualize the uterus and adnexal structures. The endometrium measures 8 mm in AP diameter. Within the uterine fundus there is a complex rounded heterogeneous hypoechoic solid mass which measures 4.7 x 4 x 4 cm. There are linear shadowing bands within the mass. This is probably secondary to uterine fibroid. There are nabothian cysts within the cervix. The right ovary has a volume of 3.7 ml. The left ovary has a volume of 6.6 ml. Within this ovary there is a rounded hypoechoic complex lesion measuring 2.1 x 1.8 x 1.2 cm, suspected corpus luteal cyst. Arterial and venous flow are visualized in both ovaries on color doppler imaging. IMPRESSION: ENLARGED UTERUS. 4 CM COMPLEX MASS UTERINE FUNDUS, SUSPECTED UTERINE FIBROID. 2 CM COMPLEX HYPOECHOIC LESION LEFT OVARY, PROBABLE CORPUS LUTEAL CYST. FREE FLUID IN POSTERIOR CUL-DE-SAC. NORMAL SIZE OVARIES. NO ABNORMAL ADNEXAL MASS. [facility]- [place], [place] HPV DNA Typingon 12-18-2020 HPV Type 16 Not detected Normal Not Detect [facility] HPV Type 18 Not detected Normal Not Detect [facility] HPVOH (Other types) Not detected Normal Not Detect [facility] Comment on above: Result Comment: *Inc ludes 31,33,35,39,45,51,52,56,58,59,66,68 genotypes Trichmonas Vaginalis Screen (EIA)on 12-14-2020 Trichomonas Vaginalis Screen (EIA) Negative Normal [facility] Comment on above: Performed By: #### E TRIC #### [facility] [address] [place] [address] Wet Prep-Medical Purposes On cisneros 12-14-2020 Wet Prep Clue Cellls None Seen Normal [facility] Comment on above: Performed By: #### W ETPR #### [facility] [address] [place] [address] Wet Prep Trichomonas See EIA Normal [facility] Comment on above: Performed By: #### W ETPR #### [facility] [address] [place] [address] Wet Prep Yeast None Seen Normal [facility] Comment on above: Performed By: #### W ETPR #### [facility] [address] [facility] [address] Gynecological Specimen (Cyto logy)on 12-13-2020 Gynecological Specimen (Cytology) [facility] [address] [place] [address] FINAL CYTOLOGY PAP REPORT Patient Name: PATT CRANE Accession No: [id number] Age Sex: 1980 40 Y / F Location: [facility] Account No: [id number] Collected: 12/13/2020 Med Rec No: [id number] Received: 12/15/2020 Attend Phys: MIKE MUHAMMAD Completed: 12/19/2020 Perform Phys: MIKE MUHAMMAD SPECIMEN ADEQUACY: Satisfactory for Evaluation. Endocervical cells/transformation zone component present. GENERAL CATEGORIZATION: Negative for Intraepithelial Lesion or Malignancy Specimen: THINPREP LIQUID BASE IMAGED DIAGNOSTIC History: Source: Thin Prep Site: Cervical History: Previous abnormal smear? No History of CA? None given Lab Order#: [id number] Test Name Collected D AND T Result HPV Type 16 12/13/2020 Not Detected HPV Type 18 12/13/2020 Not Detected HPVOH (Other types) 12/13/2020 Not Detected HPV Comment 12/13/2020 See below Test Comment: This is information only. See above for results. HPV other genotypes: 31,33,35,39,45,51,52,5 6,58,59,66,68 The Claribel Michael HPV Test is a qualitative in-vitro test for the detection of Human Papillomavirus that provides specific genotyping information for HPV Types 16 and 18, while concurrently detecting 12 other high-risk HPV types 31,33,35, 39,45,51,52,56,58,59,6 6,68 in a pooled result. The test utilizes amplification of target DNA by Polymerase Chain Reaction (PCR) and nucleic acid hybridization. CPT: Technical: 37006 X1 Screened by: DULCE RESENDEZ(ASCP) DULCE RESENDEZ(ASCP) 12/19/2020 Electronically signed out by Cervical cytology is a screening test primarily for squamous cancers and precursors and has associated false negative and positive results. New technologies such as liquid based sampling may decrease but not eliminate all false negative results. Please refer to established guidelines All gynecologic cytology specimen processing and diagnostic testing is processed and screened using a Thin Prep Pollution Control Engineer at [facility] [address] [place] [address] All abnormal gynecologic interpretation is performed at [facility], unless otherwise noted in the report. Page 1 of 1 Invalid Interpretation Code [facility] Comment on above: Performed By: #### G YN #### [facility] [address] [place] [id number] HPV DNA Typingon 12-13-2020 HPV Comment See below Normal [facility] Comment on above: Result Comment: Th is is information only. See above for results. HPV other genotypes: 31,33,35,39,45,51,52,56,58,59,66,68 The Claribel Michael HPV Test is a qualitative in-vitro test for the detection of Human Papillomavirus that provides specific genotyping information for HPV Types 16 and 18, while concurrently detecting 12 other high-risk HPV types 31,33,35, 39,45,51,52,56,58,59,66,68 in a pooled result. The test utilizes amplification of target DNA by Polymerase Chain Reaction (PCR) and nucleic acid hybridization. . C-Peptideon 11-22-2020 C-Peptide 2.5 ng/mL Normal 1.1-4.4 [facility] Comment on above: Result Comment: [facility] [address] [place] [address] ([phone] Comprehensive Metabolic Pane gosia 11-19-2020 Albumin [Mass/Vol] 4.1 g/dL Normal 3.5-4.6 [facility] Comment on above: Performed By: #### C MP #### [facility] [address] [place] [address] ALP [Catalytic activity/Vol] 103 U/L Normal 40-130 [facility] Comment on above: Performed By: #### C MP #### [facility] [address] [place] [address] ALT [Catalytic activity/Vol] 12 U/L Normal 0-33 [facility] Comment on above: Performed By: #### C MP #### [facility] [address] [place] [address] Anion gap [Moles/Vol] 11 mmol/L Normal 9-15 [facility] Comment on above: Performed By: #### C MP #### [facility] [address] [place] [address] AST [Catalytic activity/Vol] 10 U/L Normal 0-35 [facility] Comment on above: Performed By: #### C MP #### [facility] [address] [place] [address] Bilirubin [Mass/Vol] 0.4 mg/dL Normal 0.2-0.7 [facility] Comment on above: Performed By: #### C MP #### [facility] [address] [place] [address] Calcium [Mass/Vol] 8.8 mg/dL Normal 8.5-9.9 [facility] Comment on above: Performed By: #### C MP #### [facility] [address] [place] [address] Chloride [Moles/Vol] 101 mmol/L Normal 95-107 [facility] Comment on above: Performed By: #### C MP #### [facility] [address] [place] [address] CO2 [Moles/Vol] 21 mmol/L Normal 20-31 [facility] Comment on above: Performed By: #### C MP #### [facility] [address] [place] [address] Creatinine [Mass/Vol] 0.69 mg/dL Normal 0.50-0.90 [facility] Comment on above: Performed By: #### C MP #### [facility] [address] [place] [address] GFR >60.0 Normal >60 [facility] Comment on above: Result Comment: >60 mL/min/1.73m2 EGFR, calc. for ages 18 and older using the MDRD formula (not corrected for weight), is valid for stable renal function. Performed By: #### C MP #### [facility] [address] [place] [address] GFR/1.73 sq M.predicted among blacks MDRD (S/P/Bld) [Vol rate/Area] mL/min/{1.73_m2} Normal >60 [facility] Comment on above: Result Comment: >60 mL/min/1.73m2 EGFR, calc. for ages 18 and older using the MDRD formula (not corrected for weight), is valid for stable renal function. Performed By: #### C MP #### [facility] [address] [place] [address] Globulin (S) [Mass/Vol] 3.8 g/dL Critically high 2.3-3.5 [facility] Comment on above: Performed By: #### C MP #### [facility] [address] [place] [address] Glucose [Mass/Vol] 282 mg/dL Critically high 70-99 M [facility] Comment on above: Performed By: #### C MP #### [facility] [address] [place] [address] Potassium [Moles/Vol] 4.0 mmol/L Normal 3.4-4.9 [facility] Comment on above: Performed By: #### C MP #### [facility] [address] [place] [address] Protein [Mass/Vol] 7.9 g/dL Normal 6.3-8.0 [facility] Comment on above: Performed By: #### C MP #### [facility] [address] [place] [address] Sodium [Moles/Vol] 133 mmol/L Low 135-144 [facility] Comment on above: Performed By: #### C MP #### [facility] [address] [place] [address] Urea nitrogen [Mass/Vol] 8 mg/dL Normal 6-20 [facility] Comment on above: Performed By: #### C MP #### [facility] [address] [place] [address] Lipid Panel Fastingon 2019 Cholesterol [Mass/Vol] 136 mg/dL Normal 0-199 [facility] Comment on above: Result Comment: ATP III Cholesterol classification is Desirable. Performed By: #### L IPDF #### [facility] [address] [place] [address] HDL Cholesterol Fasting 45 mg/dL Normal 40-59 M [facility] Comment on above: Result Comment: ATP III HDL Cholesterol Classification is Desirable. Expected Values: Males: >55 = No Risk 35-55 = Moderate Risk <35 = High Risk Females: >65 = No Risk 45-65 = Moderate Risk <45 = High Risk NCEP Guidelines: Third Report March 2001 >59 = negative risk factor for CHD <40 = major risk factor for CHD Performed By: #### L IPDF #### [facility] [address] [place] [address] LDL Cholesterol (Calculated) Fasting 75 mg/dL Normal 0-129 [facility] Comment on above: Result Comment: ATP III LDL Classification is Optimal. Performed By: #### L IPDF #### [facility] [address] [place] [address] Triglycerides Fasting 82 mg/dL Normal 0-150 [facility] Comment on above: Result Comment: ATP III Triglycerides Classification is Normal. Performed By: #### L IPDF #### [facility] [address] [place] [address] FOOT 3 OR MORE VW RTon 08-02 FOOT 3 OR MORE VW RT DATE OF EXAM: Aug 02 2017 7:40PMCLINICAL HISTORY/ Name: TIFFANY CRANEASTUDY:FOOT 3 OR MORE VW RT; HEEL/CALCANEUS RT; 08/02/2017 7:40 pmINDICATION:Trauma.CO MPARISON:None.ACCESSIO N NUMBER(S):[id number]; [id number] CLINICIAN:BAUTISTA BAIRDS:No evidence of fracture, dislocation or destructive lesion. Joint spaces and alignment are maintained. No significant soft tissue abnormalities identified.CONCLUSION: IMPRESSION:No fracture identified. Normal [facility] HEEL/CALCANEUS RTon 08-02-20 17 HEEL/CALCANEUS RT DATE OF EXAM: Aug 02 2017 7:40PMCLINICAL HISTORY/ Name: TIFFANY CRANEASTUDY:FOOT 3 OR MORE VW RT; HEEL/CALCANEUS RT; 08/02/2017 7:40 pmINDICATION:Trauma.CO MPARISON:None.ACCESSIO N NUMBER(S):[id number]; [id number] CLINICIAN:BAUTISTA FUENTES:No evidence of fracture, dislocation or destructive lesion. Joint spaces and alignment are maintained. No significant soft tissue abnormalities identified.CONCLUSION: IMPRESSION:No fracture identified. Normal [facility] ECG B/O W INTERP (MED OFFICE ) [facility] Vital Signs Date Time Vital Sign Value Performing Clinician Facility 06-20-2025 08:09-0400 Body height 160.02 cm Garry Trill CARD SCRAPER-C Work Phone: [facility] 06-20-2025 08:09-0400 Body mass index (BMI) [Ratio] 36.3 kg/m2 Garry Trill CARD SCRAPER-C Work Phone: [facility] 06-20-2025 08:09-0400 Body weight 92.98 kg Garry Trill CARD SCRAPER-C Work Phone: [facility] 06-20-2025 08:09-0400 Diastolic blood pressure 86 mm[Hg] Garry Trill CARD SCRAPER-C Work Phone: [facility] 06-20-2025 08:09-0400 Heart rate 81 /min Garry Trill CARD SCRAPER-C Work Phone: [facility] 06-20-2025 08:09-0400 Respiratory rate 16 /min Garry Trill CARD SCRAPER-C Work Phone: [facility] 06-20-2025 08:09-0400 Systolic blood pressure 135 mm[Hg] Garry Trill CARD SCRAPER-C Work Phone: [facility] 04-09-2025 16:15-0400 Diastolic blood pressure 98 mm[Hg] Garry Trill CELL OPERATION SUPERVISOR.ECONOMIC DEVELOPMENT COORDINATOR Work Phone: [facility] 04-09-2025 16:15-0400 Systolic blood pressure 188 mm[Hg] Garry Trill CELL OPERATION SUPERVISOR.ECONOMIC DEVELOPMENT COORDINATOR Work Phone: [facility] 04-09-2025 15:43-0400 Body height 160 cm Garry Trill CELL OPERATION SUPERVISOR.ECONOMIC DEVELOPMENT COORDINATOR Work Phone: [facility] 04-09-2025 15:43-0400 Body mass index (BMI) [Ratio] 35.96 kg/m2 Garry Trill CELL OPERATION SUPERVISOR.ECONOMIC DEVELOPMENT COORDINATOR Work Phone: [facility] 04-09-2025 15:43-0400 Body temperature 98.01 [degF] Garry Trill CELL OPERATION SUPERVISOR.ECONOMIC DEVELOPMENT COORDINATOR Work Phone: [facility] 04-09-2025 15:43-0400 Body weight 92.08 kg Garry Trichito CELL OPERATION SUPERVISOR.ECONOMIC DEVELOPMENT COORDINATOR Work Phone: [facility] 04-09-2025 15:43-0400 Heart rate 103 /min Garry Trill CELL OPERATION SUPERVISOR.ECONOMIC DEVELOPMENT COORDINATOR Work Phone: [facility] 04-09-2025 15:43-0400 SaO2% (BldA) [Mass fraction] 98 % Garry Trill CELL OPERATION SUPERVISOR.ECONOMIC DEVELOPMENT COORDINATOR Work Phone: [facility] 12-06-2024 13:13-0500 Body height 160 cm Garry Rodriguez CELL OPERATION SUPERVISOR.ECONOMIC DEVELOPMENT COORDINATOR Work Phone: [facility] 12-06-2024 13:13-0500 Body mass index (BMI) [Ratio] 35.61 kg/m2 Garry Trichito CELL OPERATION SUPERVISOR.ECONOMIC DEVELOPMENT COORDINATOR Work Phone: [facility] 12-06-2024 13:13-0500 Body temperature 98.01 [degF] Garry Trill CELL OPERATION SUPERVISOR.ECONOMIC DEVELOPMENT COORDINATOR Work Phone: [facility] 12-06-2024 13:13-0500 Body weight 91.17 kg Garry Trichito CELL OPERATION SUPERVISOR.ECONOMIC DEVELOPMENT COORDINATOR Work Phone: [facility] 12-06-2024 13:13-0500 Diastolic blood pressure 62 mm[Hg] Garry Trill CELL OPERATION SUPERVISOR.ECONOMIC DEVELOPMENT COORDINATOR Work Phone: [facility] 12-06-2024 13:13-0500 Heart rate 56 /min Garry Trill CELL OPERATION SUPERVISOR.ECONOMIC DEVELOPMENT COORDINATOR Work Phone: [facility] 12-06-2024 13:13-0500 Respiratory rate 16 /min Garry Trill CELL OPERATION SUPERVISOR.ECONOMIC DEVELOPMENT COORDINATOR Work Phone: [facility] 12-06-2024 13:13-0500 SaO2% (BldA) [Mass fraction] 98 % Garry Rodriguez APRN.ECONOMIC DEVELOPMENT COORDINATOR Work Phone: [facility] 12-06-2024 13:13-0500 Systolic blood pressure 122 mm[Hg] Garry Rodriguez CELL OPERATION SUPERVISOR.ECONOMIC DEVELOPMENT COORDINATOR Work Phone: [facility] 01-12-2024 10:18-0500 Diastolic blood pressure 68 mm[Hg] Garry Rodriguez CELL OPERATION SUPERVISOR.ECONOMIC DEVELOPMENT COORDINATOR Work Phone: [facility] 01-12-2024 10:18-0500 Systolic blood pressure 140 mm[Hg] Garry Rodriguez CELL OPERATION SUPERVISOR.ECONOMIC DEVELOPMENT COORDINATOR Work Phone: [facility] 01-12-2024 10:08-0500 Body height 160 cm Garry Rodriguez CELL OPERATION SUPERVISOR.ECONOMIC DEVELOPMENT COORDINATOR Work Phone: [facility] 01-12-2024 10:08-0500 Body temperature 97.59 [degF] Garry Rodriguez CELL OPERATION SUPERVISOR.ECONOMIC DEVELOPMENT COORDINATOR Work Phone: [facility] 01-12-2024 10:08-0500 Body weight 83.92 kg Garry Rodriguez CELL OPERATION SUPERVISOR.ECONOMIC DEVELOPMENT COORDINATOR Work Phone: [facility] 01-12-2024 10:08-0500 Heart rate 74 /min Garry Rodriguez APRN.ECONOMIC DEVELOPMENT COORDINATOR Work Phone: [facility] 01-12-2024 10:08-0500 SaO2% (BldA) [Mass fraction] 99 % Garry Rodriguez CELL OPERATION SUPERVISOR.ECONOMIC DEVELOPMENT COORDINATOR Work Phone: [facility] 09-09-2023 15:58-0400 Body height 160.02 cm MD Placido Pena Work Phone: [facility] 09-09-2023 15:58-0400 Body mass index (BMI) [Ratio] 36.6 kg/m2 MD Placido Pena Work Phone: [facility] 09-09-2023 15:58-0400 Body weight 93.89 kg MD Placido Pena Work Phone: [facility] 09-09-2023 15:58-0400 Diastolic blood pressure 103 mm[Hg] MD Placido Pena Work Phone: 9(811)621-108894 [place] [address] 09-09-2023 15:58-0400 Heart rate 103 /min MD Placido Pena Work Phone: 2(444)993-848394 [place] [address] 09-09-2023 15:58-0400 Respiratory rate 16 /min MD Placiod Pena Work Phone: 2(099)311-636182 [place] [address] 09-09-2023 15:58-0400 Systolic blood pressure 141 mm[Hg] MD Placido Pena Work Phone: 3(140)919-880982 [place] [address] 08-12-2023 16:47-0400 Body temperature 97.4 [degF] MD Placido Pena Work Phone: 0(162)398-390382 [place] [address] 08-12-2023 16:47-0400 Diastolic blood pressure 92 mm[Hg] MD Placido Pena Work Phone: 5(755)866-595482 [place] [address] 08-12-2023 16:47-0400 Heart rate 89 /min MD Placido Pena Work Phone: 2(544)403-529582 [place] [address] 08-12-2023 16:47-0400 Respiratory rate 18 /min MD Placido Pena Work Phone: 7(961)924-519882 [place] [address] 08-12-2023 16:47-0400 SaO2% (BldA) [Mass fraction] 96 % MD Placido Pena Work Phone: 3(984)122-713682 [place] [address] 08-12-2023 16:47-0400 Systolic blood pressure 140 mm[Hg] MD Placido Pena Work Phone: 3(015)574-657482 [place] [address] 08-11-2023 21:27-0400 Body mass index (BMI) [Ratio] 36.3 kg/m2 MD Placido Pena Work Phone: 0(029)616-865882 [place] [address] 08-11-2023 21:27-0400 Body weight 92.98 kg MD Placido Pena Work Phone: 3(459)407-733582 [place] [address] 08-11-2023 20:50-0400 Body temperature 97.7 [degF] [facility] 08-11-2023 20:50-0400 Diastolic blood pressure 99 mm[Hg] [facility] 08-11-2023 20:50-0400 Heart rate 108 /min [facility] 08-11-2023 20:50-0400 Respiratory rate 19 /min [facility] 08-11-2023 20:50-0400 SaO2% (BldA) [Mass fraction] 97 % [facility] 08-11-2023 20:50-0400 Systolic blood pressure 148 mm[Hg] [facility] 08-11-2023 16:41-0400 Body height 160.02 cm [facility] 08-11-2023 16:41-0400 Body mass index (BMI) [Ratio] 36.4 kg/m2 [facility] 08-11-2023 16:41-0400 Body weight 93.3 kg [facility] 05-05-2023 13:09-0400 Body height 160 cm Tone Espino MD Work Phone: [facility] 05-05-2023 13:09-0400 Body weight 90.72 kg Tone Espino MD Work Phone: [facility] 05-05-2023 13:09-0400 Diastolic blood pressure 80 mm[Hg] Tone Espino MD Work Phone: [facility] 05-05-2023 13:09-0400 Heart rate 98 /min Tone Espino MD Work Phone: [facility] 05-05-2023 13:09-0400 SaO2% (BldA) [Mass fraction] 99 % Tone Espino MD Work Phone: [facility] 05-05-2023 13:09-0400 Systolic blood pressure 144 mm[Hg] Tone Espino MD Work Phone: [facility] 03-23-2023 10:34-0400 Body height 160 cm Garry Rodriguez APRN.CNP Work Phone: [facility] 03-23-2023 10:34-0400 Body temperature 98.6 [degF] Garry Trill CELL OPERATION SUPERVISOR.ECONOMIC DEVELOPMENT COORDINATOR Work Phone: [facility] 03-23-2023 10:34-0400 Body weight 92.99 kg Garry Trill CELL OPERATION SUPERVISOR.ECONOMIC DEVELOPMENT COORDINATOR Work Phone: [facility] 03-23-2023 10:34-0400 Diastolic blood pressure 74 mm[Hg] Garry Trill CELL OPERATION SUPERVISOR.ECONOMIC DEVELOPMENT COORDINATOR Work Phone: [facility] 03-23-2023 10:34-0400 Heart rate 89 /min Garry Trill CELL OPERATION SUPERVISOR.ECONOMIC DEVELOPMENT COORDINATOR Work Phone: [facility] 03-23-2023 10:34-0400 SaO2% (BldA) [Mass fraction] 98 % Garry Trill CELL OPERATION SUPERVISOR.ECONOMIC DEVELOPMENT COORDINATOR Work Phone: [facility] 03-23-2023 10:34-0400 Systolic blood pressure 126 mm[Hg] Garry Trill CELL OPERATION SUPERVISOR.ECONOMIC DEVELOPMENT COORDINATOR Work Phone: [facility] 02-18-2023 10:06-0400 Diastolic blood pressure 88 mm[Hg] Garry Trill CELL OPERATION SUPERVISOR.ECONOMIC DEVELOPMENT COORDINATOR Work Phone: [facility] 02-18-2023 10:06-0400 Systolic blood pressure 158 mm[Hg] Garry Trill CELL OPERATION SUPERVISOR.ECONOMIC DEVELOPMENT COORDINATOR Work Phone: [facility] 02-17-2023 11:21-0400 Body height 160 cm Garry Trill CELL OPERATION SUPERVISOR.ECONOMIC DEVELOPMENT COORDINATOR Work Phone: [facility] 02-17-2023 11:21-0400 Body temperature 98.4 [degF] Garry Trill CELL OPERATION SUPERVISOR.ECONOMIC DEVELOPMENT COORDINATOR Work Phone: [facility] 02-17-2023 11:21-0400 Body weight 92.99 kg Garry Trill CELL OPERATION SUPERVISOR.ECONOMIC DEVELOPMENT COORDINATOR Work Phone: [facility] 02-17-2023 11:21-0400 Heart rate 95 /min Garry Trill CELL OPERATION SUPERVISOR.ECONOMIC DEVELOPMENT COORDINATOR Work Phone: [facility] 02-17-2023 11:21-0400 SaO2% (BldA) [Mass fraction] 98 % Garry Rhodeschito DAWSON Work Phone: [facility] 07-10-2022 09:14-0400 Body height 157.5 cm Ama Augusta-Yelitza PA-C Work Phone: [facility] [employer] 07-10-2022 09:14-0400 Body mass index (BMI) [Ratio] 34.75 kg/m2 Ama Augusta-Yelitza PA-C Work Phone: [facility] [employer] 07-10-2022 09:14-0400 Body temperature 98.49 [degF] Ama Augusta-Yelitza PA-C Work Phone: [facility] [employer] 07-10-2022 09:14-0400 Body weight 86.18 kg Ama Augusta-Yelitza PA-C Work Phone: [facility] [employer] 07-10-2022 09:14-0400 Diastolic blood pressure 90 mm[Hg] Ama Augusta-Yelitza PA-C Work Phone: [facility] [employer] 07-10-2022 09:14-0400 Heart rate 92 /min Ama Augusta-Yelitza PA-C Work Phone: [facility] [employer] 07-10-2022 09:14-0400 Respiratory rate 20 /min Ama Augusta-Yelitza PA-C Work Phone: [facility] [employer] 07-10-2022 09:14-0400 SaO2% (BldA) [Mass fraction] 98 % Ama Augusta-Yelitza PA-C Work Phone: [facility] [employer] 07-10-2022 09:14-0400 Systolic blood pressure 148 mm[Hg] Ama Augusta-Yelitza PA-C Work Phone: [facility] [employer] 08-14-2021 22:32-0400 Diastolic blood pressure 91 mm[Hg] No Pcp Required [facility] 08-14-2021 22:32-0400 Heart rate 84 /min No Pcp Required [facility] 08-14-2021 22:32-0400 Respiratory rate 20 /min No Pcp Required [facility] 08-14-2021 22:32-0400 SaO2% (BldA) [Mass fraction] 98 % No Pcp Required [facility] 08-14-2021 22:32-0400 Systolic blood pressure 167 mm[Hg] No Pcp Required [facility] 08-14-2021 17:51-0400 Body height 157.4 cm No Pcp Required [facility] 08-14-2021 17:51-0400 Body temperature 97.34 [degF] No Pcp Required [facility] 08-14-2021 17:51-0400 Body weight 86 kg No Pcp Required [facility] Encounters Encounter Date Encounter Type Care Provider Facility Start: 06-28-2025 End: 06-29-2025 Refill Garry Rodriguez APRN.ECONOMIC DEVELOPMENT COORDINATOR Work Phone: [facility] Comment on above: Refill Request Start: 06-26-2025 End: 06-26-2025 Refill Garry Rodriguez APRN.ECONOMIC DEVELOPMENT COORDINATOR Work Phone: [facility] Comment on above: Refill Request Start: 06-20-2025 End: 06-20-2025 Patient encounter procedure Keenan Lynne CARD SCRAPER-Liliane -[facility] Work Phone: Start: 06-20-2025 End: 06-20-2025 ambulatory Garry Trichito CARD SCRAPER-C Work Phone: -[facility] Start: 06-06-2025 End: 06-08-2025 ambulatory Garry Rodriguez CELL OPERATION SUPERVISOR.ECONOMIC DEVELOPMENT COORDINATOR Work Phone: [facility] Start: 06-06-2025 End: 06-08-2025 Patient encounter procedure Garry Rodriguez APRN.ECONOMIC DEVELOPMENT COORDINATOR Work Phone: [facility] Comment on above: Referral Start: 05-30-2025 End: 05-30-2025 ambulatory Federico Ambriz PT [facility] Comment on above: Plantar fasciitis (P rimary Dx); Pain of left heel Start: 05-24-2025 End: 05-24-2025 Patient encounter procedure [facility] Provider [facility] Start: 04-30-2025 End: 04-30-2025 Patient encounter procedure Emilia Griffiths Work Phone: Podiatry Comment on above: Plantar fasciitis (P rimary Dx) Start: 04-30-2025 End: 04-30-2025 ambulatory EMILIA GRIFFITHS Facility:[facility] Start: 04-11-2025 End: 04-11-2025 ambulatory Federico Ambriz PT [facility] Comment on above: Pain of left heel; Plantar fasciitis Start: 04-09-2025 End: 04-09-2025 Patient encounter procedure Garry Rodriguez APRN.CNP Work Phone: [facility] Comment on above: Type 2 diabetes maricruz itus with hyperglycemia, without long-term current use of insulin (HCC) (Primary Dx); Cardiomyopathy, unspecified type (HCC); Essential (primary) hypertension; Dyslipidemia; Plantar fasciitis of left foot; Presence of intrauterine contraceptive device; Encounter for screening mammogram for breast cancer Start: 04-09-2025 End: 04-09-2025 ambulatory GARRY RODRIGUEZ Facility:[facility] Start: 04-05-2025 End: 04-10-2025 ambulatory Garry Rodriguez APRN.CNP Work Phone: [facility] Comment on above: ADA Start: 04-04-2025 End: 04-05-2025 Follow-up encounter Garry Rodriguez APRN.ECONOMIC DEVELOPMENT COORDINATOR Work Phone: [facility] Comment on above: Results Start: 04-02-2025 End: 04-27-2025 ambulatory Emilia Griffiths Work Phone: Podiatry Comment on above: A.D.A Start: 03-26-2025 End: 03-26-2025 Patient encounter procedure Emilia Griffiths Work Phone: Podiatry Comment on above: Pain of left heel (P rimary Dx); Plantar fasciitis Start: 03-26-2025 End: 03-26-2025 ambulatory EMILIA TESTSAEED Facility:[facility] Start: 03-22-2025 End: 03-22-2025 ambulatory GARRY RODRIGUEZ Facility:[facility] Start: 01-09-2025 End: 01-09-2025 ambulatory EMILIA GRIFFITHS Facility:[facility] Start: 01-09-2025 End: 01-09-2025 Patient encounter procedure Emilia Griffiths Work Phone: Podiatry Comment on above: Plantar fasciitis (P rimary Dx); Pain of left heel Start: 12-13-2024 End: 12-13-2024 ambulatory PIERO RODRIGUEZ APRN-[place] Facility:[facility] Start: 12-13-2024 End: 12-13-2024 Patient encounter procedure KRISTYN BRIONES MD [facility] Start: 12-12-2024 End: 12-12-2024 Telephone encounter Garry Rodriguez APRN.CNP Work Phone: [facility] Comment on above: Electronic Communica tion (Ozempic denied ) Start: 12-11-2024 End: 12-11-2024 ambulatory Garry Rodriguez APRN.CNP Work Phone: [facility] Comment on above: New prescription Start: 12-11-2024 End: 12-11-2024 E-mail encounter from caregiver Garry Rodriguez APRN.CNP Work Phone: [facility] Start: 12-11-2024 End: 12-11-2024 Telephone encounter Garry Rodriguez APRN.CNP Work Phone: [facility] Comment on above: Results Start: 12-07-2024 End: 12-07-2024 Telephone encounter Garry Rodriguez APRN.CNP Work Phone: [facility] Comment on above: Electronic Communica tion (Ozempic denied ) Start: 12-06-2024 End: 12-06-2024 Subsequent hospital visit by physician Xr [facility] Comment on above: Pain of left heel [M 79.672] Start: 12-06-2024 End: 12-06-2024 Patient encounter procedure Garry Rodriguez APRN.ECONOMIC DEVELOPMENT COORDINATOR Work Phone: [facility] Comment on above: Well adult exam (Karen akshat Dx); Type 2 diabetes mellitus with hyperglycemia, without long-term current use of insulin (HCC); History of embolic stroke; History of myocardial infarction; Encounter for screening mammogram for breast cancer; History of cardiomyopathy; Pain of left heel; Nodule of skin of left foot; Screening for depression; Screening for cervical cancer; Encounter for screening examination for other mental health and behavioral disorders Start: 12-06-2024 End: 12-06-2024 Patient encounter status Garry Rodriguez APRN.ECONOMIC DEVELOPMENT COORDINATOR Work Phone: [facility] Work Phone: Start: 12-06-2024 End: 12-06-2024 ambulatory GARRY RODRIGUEZ Facility:[facility] Start: 12-06-2024 Encounter for genera l adult medical examination without abnormal findings GARRY RODRIGUEZ [facility] Start: 12-04-2024 End: 12-05-2024 Refill Garry Rodriguez APRN.ECONOMIC DEVELOPMENT COORDINATOR Work Phone: [facility] Comment on above: Refill Request Start: 11-24-2024 End: 11-24-2024 ambulatory KRISTYN BRIONES MD Facility:[facility] Start: 11-24-2024 End: 11-24-2024 Patient encounter procedure KRISTYN BRIONES MD [facility] Start: 11-23-2024 End: 11-23-2024 ambulatory Garry Rodriguez APRN.ECONOMIC DEVELOPMENT COORDINATOR Work Phone: [facility] Comment on above: Positive t est Start: 11-16-2024 End: 11-16-2024 ambulatory GARRY RODRIGUEZ Facility:[facility] Start: 11-16-2024 End: 11-16-2024 Subsequent hospital visit by physician [facility] (I-Stat) Work Phone: Cat Scan Comment on above: Lung nodule [R91.1] Start: 10-09-2024 End: 10-09-2024 Telephone encounter Garry Rodriguez CELL OPERATION SUPERVISOR.ECONOMIC DEVELOPMENT COORDINATOR Work Phone: [facility] Comment on above: Orders Start: 08-16-2024 ambulatory Alexia Stacy CARD SCRAPER Facili ty:[facility] Start: 05-23-2024 ambulatory PIERO Sultana CELL OPERATION SUPERVISOR-ECONOMIC DEVELOPMENT COORDINATOR Facility:B Start: 05-10-2024 End: 05-10-2024 ambulatory KRISTYN BRIONES MD Facility:[facility] Start: 05-10-2024 End: 05-10-2024 Patient encounter procedure KRISTYN BRIONES MD [facility] Start: 03-20-2024 Telephone encounter Garry Rodriguez CELL OPERATION SUPERVISOR.ECONOMIC DEVELOPMENT COORDINATOR Work Phone: [facility] Comment on above: Medication Dosage Ad justment (Trulicity) Start: 02-16-2024 End: 02-16-2024 ambulatory KRISTYN BRIONES MD Facility:[facility] Start: 02-16-2024 End: 02-16-2024 Patient encounter procedure KRISTYN BRIONES MD [facility] Start: 01-13-2024 ambulatory Garry sultana CELL OPERATION SUPERVISOR.ECONOMIC DEVELOPMENT COORDINATOR Work Phone: [facility] Start: 01-13-2024 Letter encounter Garry dale CELL OPERATION SUPERVISOR.ECONOMIC DEVELOPMENT COORDINATOR Work Phone: [facility] Comment on above: Letter for airport Start: 01-12-2024 Telephone encounter Garry Rodriguez CELL OPERATION SUPERVISOR.ECONOMIC DEVELOPMENT COORDINATOR Work Phone: [facility] Comment on above: Results (CT abd/pel results) Start: 01-12-2024 End: 01-12-2024 Patient encounter procedure Garry Rodriguez APRN.CNP Work Phone: [facility] Comment on above: Type 2 diabetes maricruz itus without complication, without long- term current use of insulin (HCC) (Primary Dx); Encounter for screening mammogram for breast cancer; Chronic right shoulder pain; Fatty liver Start: 01-08-2024 E-mail encounter fro m caregiver Garry Rodriguez APRN.CNP Work Phone: [facility] Start: 01-08-2024 Patient encounter procedure Garry Rodriguez APRN.CNP Work Phone: [facility] Comment on above: Appointment Request (HM) Start: 10-27-2023 End: 10-31-2023 ambulatory PIERO RODRIGUEZ APRN-[place] Facility:B Start: 10-27-2023 End: 10-31-2023 Encounter for gynecological examination (general) (routine) without abnormal findings JESSICA NICKERSON APRN-HARPER Facility:B Start: 10-12-2023 End: 10-12-2023 ambulatory MD Placido Pena Work Phone: [facility] Work Phone: Start: 10-12-2023 End: 10-12-2023 Patient encounter procedure MD Placido Pena Work Phone: [facility] Work Phone: Start: 10-06-2023 Telephone encounter Garry Rodriguez APRN.CNP Work Phone: [facility] Comment on above: Results (CT A/P) Start: 10-06-2023 End: 10-06-2023 Subsequent hospital visit by physician Ct Prep [facility] Cat Scan Comment on above: Intra-abdominal and pelvic swelling, mass and lump, unspecified site [R19.00] Start: 09-21-2023 End: 09-21-2023 ambulatory MD Placido Pena Work Phone: [facility] Work Phone: Start: 09-21-2023 End: 09-21-2023 Patient encounter procedure MD Placido Pena Work Phone: [facility] Work Phone: Start: 09-16-2023 Telephone encounter Garry Rodriguez APRN.ECONOMIC DEVELOPMENT COORDINATOR Work Phone: [facility] Comment on above: Patient Question; Re sults Start: 09-15-2023 End: 09-15-2023 Subsequent hospital visit by physician [facility] Work Phone: Radiology Comment on above: Epigastric pain [R10 .13] Start: 09-13-2023 ambulatory Garry sultana CELL OPERATION SUPERVISOR.ECONOMIC DEVELOPMENT COORDINATOR Work Phone: [facility] Comment on above: Abdomen Start: 09-10-2023 Telephone encounter Akshat Quesada JOHN [facility] Comment on above: Results Start: 09-09-2023 End: 09-09-2023 Patient encounter procedure MD Placido Pena Work Phone: [facility] Work Phone: Start: 09-08-2023 Telephone encounter Tone goss MD Work Phone: [facility] Comment on above: Results Start: 08-12-2023 Non-patient / Non-visit MD Adeline Pena Work Phone: [facility] Work Phone: Start: 08-12-2023 Non-patient / Non-visit MD Adeline Pena Work Phone: [facility] Start: 08-11-2023 Non-patient / Non-visit MD Adeline Pena Work Phone: [facility] Work Phone: Start: 08-11-2023 End: 08-12-2023 Evaluation and management of inpatient [facility] Work Phone: Start: 08-11-2023 End: 08-11-2023 Patient encounter procedure Lauren Jil CELL OPERATION SUPERVISOR.ECONOMIC DEVELOPMENT COORDINATOR Work Phone: [facility] Comment on above: Dizziness (Primary D x) Start: 07-01-2023 Telephone encounter Tone goss MD Work Phone: [facility] [place] Comment on above: Results Start: 05-05-2023 End: 05-05-2023 Patient encounter procedure Tone Espino MD Work Phone: [facility] Comment on above: cardiomyopathy, post (Primary Dx); Hyperlipidemia, unspecified hyperlipidemia type Start: 03-23-2023 Telephone encounter [facility] Comment on above: Medication Problem ( PRIOR AUTH DONE ON OZEMPIC ) Start: 03-23-2023 End: 03-23-2023 Patient encounter procedure Garry Rodriguez CELL OPERATION SUPERVISOR.ECONOMIC DEVELOPMENT COORDINATOR Work Phone: [facility] Comment on above: Type 2 diabetes maricruz itus with hyperglycemia, with long-term current use of insulin (HCC) (Primary Dx); Obesity, Class II, BMI 35-39.9; Depression screening Start: 02-25-2023 Refill Garry sultana CELL OPERATION SUPERVISOR.ECONOMIC DEVELOPMENT COORDINATOR Work Phone: [facility] Comment on above: Refill Request Results (X-Ray) Results (Mammogram) Start: 02-24-2023 Telephone encounter [facility] Comment on above: Patient Update (Prio r auth on ozempic ) Start: 02-23-2023 Documentation procedure Mammog edwar Coordinator [facility] Start: 02-23-2023 Letter encounter Mammography Coordinator [facility] Department Start: 02-23-2023 End: 02-23-2023 Refill [facility] Comment on above: Encounter for screen ing mammogram for malignant neoplasm of breast [Z12.31] Start: 02-22-2023 Telephone encounter [facility] Comment on above: Medication Problem Start: 02-19-2023 End: 02-19-2023 Subsequent hospital visit by physician Ac [facility] [place] Work Phone: Radiology Comment on above: Chronic right should er pain [M25.511, G89.29] Start: 02-17-2023 End: 02-17-2023 Patient encounter procedure Garry Rodriguez APRN.CNP Work Phone: [facility] Comment on above: Type 2 diabetes maricruz itus with hyperglycemia, with long-term current use of insulin (HCC) (Primary Dx); Wears glasses; Primary hypertension; Iron deficiency anemia, unspecified iron deficiency anemia type; Menorrhagia with regular cycle; cardiomyopathy, ; Cerebrovascular accident (CVA) due to embolism of left middle cerebral artery (HCC); Chronic right shoulder pain; Encounter for screening mammogram for malignant neoplasm of breast Start: 07-10-2022 End: 07-10-2022 Emergency department patient visit [facility] Start: 07-10-2022 End: 07-10-2022 Emergency department patient visit [facility] GRIS Work Phone: [facility] ED Comment on above: Metatarsalgia of lef t foot (Primary Dx) Start: 01-29-2022 End: 01-30-2022 ambulatory [facility] Start: 01-29-2022 End: 01-29-2022 Subsequent hospital visit by physician Emissions Engineer 1 Schedule [facility] Comment on above: Arrived Start: 08-14-2021 End: 08-14-2021 Emergency department patient visit Marquise Penamaddi [facility] ED 21 Start: 12-19-2020 End: 12-21-2020 Subsequent hospital visit by physician Gonzalez [facility] 2 [facility] Ultrasound Comment on above: Menorrhagia with reg ular cycle Start: 01-16-2020 End: 01-16-2020 Subsequent hospital visit by physician Peter [facility] Comment on above: Canceled (Patient) Start: 01-09-2020 End: 01-09-2020 Subsequent hospital visit by physician Peter Rea [facility] Start: 01-02-2020 End: 01-02-2020 Subsequent hospital visit by physician Moe Wong [facility] Comment on above: Arrived Start: 12-26-2019 End: 12-26-2019 Subsequent hospital visit by physician Татьяна Dinh IMMIGRATION COORDINATOR [facility] Comment on above: Canceled (Other) Start: 12-19-2019 End: 12-19-2019 Subsequent hospital visit by physician Moe Wong IMMIGRATION COORDINATOR [facility] Start: 12-12-2019 End: 12-12-2019 Subsequent hospital visit by physician Shasta Coe PT [facility] Comment on above: Canceled (Other) Start: 12-05-2019 End: 12-05-2019 Subsequent hospital visit by physician Peter Rea [facility] Comment on above: Arrived Start: 11-28-2019 End: 11-28-2019 Subsequent hospital visit by physician Sonia Castellano PT [facility] Comment on above: Arrived Start: 08-02-2017 End: 08-02-2017 Emergency department patient visit LISSA ELLIOTT Facility:[id number] Start: 08-02-2017 Ambulatory Facility:[id number] Procedures Date Procedure Procedure Detail Performing Clinician Start: 04-09-2025 Hemoglobin A1c/Hemoglobin.total in Blood Garry Rodriguez CELL OPERATION SUPERVISOR.ECONOMIC DEVELOPMENT COORDINATOR Work Phone: Start: 12-06-2024 Urine albumin quantitative Garry Rodriguez APRN.ECONOMIC DEVELOPMENT COORDINATOR Work Phone: Start: 12-06-2024 Hemoglobin A1c/Hemoglobin.total in Blood Garry Rodriguez CELL OPERATION SUPERVISOR.ECONOMIC DEVELOPMENT COORDINATOR Work Phone: Start: 12-06-2024 Adult depression screening assessment [facility] Start: 01-12-2024 Hemoglobin A1c/Hemoglobin.total in Blood Garry Rodriguez CELL OPERATION SUPERVISOR.ECONOMIC DEVELOPMENT COORDINATOR Work Phone: Start: 11-29-2023 Induced dil ation & evacuation KRISTYN BRIONES MD Start: 10-06-2023 Ct abdomen & pelvis w/contrast material Garry Rodriguez APRN.ECONOMIC DEVELOPMENT COORDINATOR Work Phone: Start: 09-15-2023 Us abdominal real ti me w/image limited Garry Rodriguez APRN.ECONOMIC DEVELOPMENT COORDINATOR Work Phone: Start: 08-11-2023 CT angiography of ch est with contrast Start: 08-11-2023 Plain chest X-ray Start: 05-05-2023 Ecg routine ecg w/le ast 12 lds w/i&r Tone Espino MD Work Phone: Start: 02-23-2023 End: 02-23-2023 Mammography Garry Rodriguez APRN .ECONOMIC DEVELOPMENT COORDINATOR Work Phone: Start: 02-19-2023 Radex shoulder compl ete minimum 2 views Garry Rodriguez APRN.ECONOMIC DEVELOPMENT COORDINATOR Work Phone: Start: 01-27-2023 Hemoglobin A1c/Hemoglobin.total in Blood Other (Hist) Work Phone: Start: 07-10-2022 Radex foot complete minimum 3 views Yevgeniy Wheat PA-C Work Phone: Start: 08-14-2021 End: 08-14-2021 EKG impression Jil do Start: 12-19-2020 Us pelvic nonobstetr ic real-time image complete Mike Tovar Work Phone: Start: 12-19-2020 Us transvaginal Finn Tovar Work Phone: Start: 12-13-2020 Microscopic observat ion [Identifier] in Cervix by Cyto stain Emissions Engineer Schedule Start: 08-26-2011 section KRISTYN BRIONES MD Plan of Treatment Date Care Activity Detail Author Start: 2031 Shingles Vaccine (1 of 2) Shingles Vaccine (1 of 2) [facility] Work Phone: Start: 04-09-2026 Annual PCP Team Chronic Disease Visit Annual PCP Team Chronic Disease Visit [facility] Start: 04-09-2026 Urine microalbumin profile DTaP,Tdap,Td Vaccine (3 - Td or Tdap) [facility] Comment on above: Postponed from 04/01/2025 (Declined at t his time) Start: 03-22-2026 Hepatitis B surface antibody level LDL Cholesterol [facility] Start: 12-13-2025 PAP TESTING PAP TESTING [facility] Start: 12-13-2025 Screening for malignant neoplasm of cervix [facility] Start: 12-06-2025 Annual PCP Team Chronic Disease Visit Annual PCP Team Chronic Disease Visit [facility] Start: 12-06-2025 Anxiety Screening Anxiety Screening [facility] Start: 12-06-2025 BP Controlled (<130/80) BP Controlled (<130/80) [facility] Start: 12-06-2025 Depression Screening Depression Screening [facility] Start: 12-06-2025 Hepatitis B screening Urine Albumin:Creatinine Ratio [facility] Start: 12-06-2025 Hepatitis B Vaccine (1 of 3 - 19+ 3-dose series) Hepatitis B Vaccine (1 of 3 - 19+ 3-dose series) [facility] Comment on above: Postponed from 2000 (Declined at t his time) Start: 12-06-2025 Pneumococcal vaccination Pneumococcal Vaccine (1 of 2 - PCV) [facility] Comment on above: Postponed from 2000 (Declined at t his time) Start: 08-15-2025 End: 08-15-2025 Patient encounter procedure 08/15/2025 10:20 AM EDT Office Visit [facility] [address] [place] [address] Garry Rodriguez APRN.ECONOMIC DEVELOPMENT COORDINATOR [address] [place] [address] for Diabetes. [facility] Comment on above: for Diabetes. Start: 07-30-2025 Influenza vaccination [facility] Start: 07-16-2025 End: 07-16-2025 ambulatory 07/16/2025 10:45 AM EDT OT/PT/Speech Visit [facility] [address] [place] [address] Federico Ambriz, PT left heel [facility] Comment on above: left heel Start: 07-10-2025 [facility] Start: 06-27-2025 End: 06-27-2025 ambulatory 06/27/2025 8:15 AM EDT OT/PT/Speech Visit [facility] [address] [place] [address] Federico Ambriz, PT M79.672 (ICD-10-CM) - Pain of left heel [place] [facility] Therapy Comment on above: M79.672 (ICD-10-CM) - Pain of left heel Start: 06-20-2025 End: 06-20-2025 ambulatory 06/20/2025 8:15 AM EDT OT/PT/Speech Visit [facility] [address] [place] [address] Federico Ambriz, PT M79.672 (ICD-10-CM) - Pain of left heel [facility] Comment on above: M79.672 (ICD-10-CM) - Pain of left heel Start: 06-13-2025 End: 06-13-2025 ambulatory 06/13/2025 8:15 AM EDT OT/PT/Speech Visit [facility] [address] [place] [address] Federico Ambriz, PT M79.672 (ICD-10-CM) - Pain of left heel [facility] Comment on above: M79.672 (ICD-10-CM) - Pain of left heel Start: 06-06-2025 End: 06-06-2025 ambulatory 06/06/2025 8:15 AM EDT OT/PT/Speech Visit [facility] [address] [place] [address] Federico Ambriz, PT M79.672 (ICD-10-CM) - Pain of left heel [facility] Comment on above: M79.672 (ICD-10-CM) - Pain of left heel Start: 05-30-2025 End: 05-30-2025 Patient encounter procedure 05/30/2025 11:00 AM EDT Office Visit [facility] [address] [place] [address] Garry Rodriguez APRN.[facility] [address] [place] [address] Follow up glucose [facility] Comment on above: Follow up glucose Start: 05-30-2025 End: 05-30-2025 ambulatory 05/30/2025 8:15 AM EDT OT/PT/Speech Visit [facility] [address] [place] [address] Federico Ambriz, PT M79.672 (ICD-10-CM) [facility] Comment on above: M79.672 (ICD-10-CM) - Pain of left heel Start: 05-28-2025 Influenza vaccination Influenza Vaccine (#1) [facility] Comment on above: Postponed from 07/30/2024 (Declined at t his time) Start: 05-07-2025 End: 05-07-2025 Patient encounter procedure 05/07/2025 3:45 PM EDT Office Visit Podiatry [address] [place] [address] Emilia Griffiths [address] [place] [address] 6 week follow up heel pain Podiatry Comment on above: 6 week follow up heel pain Start: 05-02-2025 End: 05-02-2025 ambulatory 05/02/2025 10:30 AM EDT OT/PT/Speech Visit [facility] [address] [place] [address] Srini Glover, PT, DPT M79.672 (ICD-10-CM) - Pain of left heel [facility] Comment on above: M79.672 (ICD-10-CM) - Pain of left heel Start: 04-30-2025 End: 04-30-2025 Patient encounter procedure 04/30/2025 3:30 PM EDT Office Visit Podiatry [address] [place] [address] Emilia Griffiths [address] [place] [address] 6 week follow up heel pain Podiatry Comment on above: 6 week follow up heel pain Start: 04-25-2025 End: 04-25-2025 ambulatory 04/25/2025 8:00 AM EDT OT/PT/Speech Visit [facility] [address] [place] [address] Vidya Smith, IMMIGRATION COORDINATOR [address] [place] [address] M79.672 (ICD-10-CM) - Pain of left heel [facility] Comment on above: M79.672 (ICD-10-CM) - Pain of left heel Start: 04-11-2025 End: 04-11-2025 ambulatory 04/11/2025 11:15 AM EDT OT/PT/Speech Visit [facility] [address] [place] [address] Federico Ambriz PT Dx: Pain of left heel [M79.672]; Plantar fasciitis [M72.2] [facility] Comment on above: Dx: Pain of left heel [M79.672]; Plantar fasciitis [M72.2] Start: 04-01-2025 DTaP/Tdap/Td vaccine (3 - Td or Tdap) DTaP/Tdap/Td vaccine (3 - Td or Tdap) [facility] Start: 04-01-2025 DTaP/Tdap/Td vaccine (3 - Td) DTaP/Tdap/Td vaccine (3 - Td) [facility] Work Phone: Start: 04-01-2025 Urine microalbumin profile [facility] Start: 03-14-2025 End: 03-14-2025 Patient encounter procedure 03/14/2025 10:40 AM EDT Office Visit [facility] [address], [place] [id number] Garry Rodriguez APRN.[facility] [address] [place] [address] follow up for Diabetes. [facility] Comment on above: follow up for Diabetes. Start: 03-06-2025 Hemoglobin A1c measurement HbA1C [place] [facility] Start: 01-12-2025 Annual PCP Team Chronic Disease Visit Annual PCP Team Chronic Disease Visit [facility] Start: 01-09-2025 End: 01-09-2025 Patient encounter procedure 01/09/2025 3:45 PM EST Office Visit Podiatry [address] [place] [address] [facility]s [address] [facility] [address] [address] heel pain Podiatry Comment on above: heel pain Start: 12-25-2024 Glaucoma screening Dilated Retinal Exam [facility] Comment on above: Postponed from 12/22/2024 (Currently Josse eduled) Start: 12-22-2024 Glaucoma screening Dilated Retinal Exam [facility] Start: 12-12-2024 End: 12-12-2024 ambulatory 12/12/2024 3:45 PM EST OT/PT/Speech Visit [facility] [address] [place] [address] Jessica Erickson, PT Pain in shoulder [facility] Comment on above: Pain in shoulder Start: 12-06-2024 End: 07-04-2025 CBC panel - Blood by Automated count COMPLETE BLOOD COUNT Lab Routine Type 2 diabetes mellitus with hyperglycemia, without long-term current use of insulin ([facility]) Expected: 12/06/2024, Expires: 07/04/2025 [facility] Comment on above: Expected: 12/06/2024, Expires: Start: 12-06-2024 End: 07-04-2025 Comprehensive metabolic 2000 panel - Serum or Plasma COMPREHENSIVE METABOLIC PANEL Lab Routine Type 2 diabetes mellitus with hyperglycemia, without long-term current use of insulin ([facility]) Expected: 12/06/2024, Expires: 07/04/2025 [facility] Comment on above: Expected: 12/06/2024, Expires: Start: 12-06-2024 End: 07-04-2025 Lipid 1996 panel - Serum or Plasma LIPID PANEL BASIC Lab Routine Type 2 diabetes mellitus with hyperglycemia, without long-term current use of insulin ([facility]) Expected: 12/06/2024, Expires: 07/04/2025 [facility] Work Phone: Comment on above: Expected: 12/06/2024, Expires: Start: 12-06-2024 End: 07-04-2025 Magnesium [Mass/volume] in Serum or Plasma MAGNESIUM Lab Routine Type 2 diabetes mellitus with hyperglycemia, without long-term current use of insulin (HCC) Expected: 12/06/2024, Expires: 07/04/2025 [facility] Comment on above: Expected: 12/06/2024, Expires: Start: 12-06-2024 End: 07-04-2025 Phosphate [Mass/volume] in Serum or Plasma PHOSPHORUS INORGANIC Lab Routine Type 2 diabetes mellitus with hyperglycemia, without long-term current use of insulin (HCC) Expected: 12/06/2024, Expires: 07/04/2025 [facility] Comment on above: Expected: 12/06/2024, Expires: Start: 12-06-2024 End: 12-06-2024 Patient encounter procedure 12/06/2024 1:20 PM EST Office Visit [facility] [address] [place] [address] Garry Rodriguez, [facility] [address] [place] [address] [facility] Comment on above: JAX Start: 11-28-2024 Behavioral Health Screening Behavioral Health Screening [facility] Comment on above: Postponed from 11/29/2023 (Declined at t his time) Start: 11-28-2024 Depression Assessment Depression Assessment [facility] Comment on above: Postponed from 11/29/2023 (Declined at t his time) Start: 11-07-2024 Cervical cancer screen Cervical cancer screen [facility] Work Phone: Start: 08-20-2024 Annual PCP Team Chronic Disease Visit Annual PCP Team Chronic Disease Visit [facility] Start: 07-30-2024 Covid-19 Vaccine ( season) Covid-19 Vaccine ( season) [facility] Start: 07-30-2024 Influenza vaccination [facility] Start: 04-11-2024 Hemoglobin A1c measurement HbA1C [facility] josé Start: 03-23-2024 3 comp foot exam completed DIABETIC FOOT EXAM [facility] Start: 03-23-2024 ANNUAL PCP TEAM CHRONIC DISEASE VISIT ANNUAL PCP TEAM CHRONIC DISEASE VISIT [facility] Start: 03-23-2024 COVID-19 VACCINE (#1) COVID-19 VACCINE (#1) [facility] Comment on above: Postponed from 1981 (Declined at t his time) Start: 03-23-2024 Diabetic foot examination Diabetic Foot Exam [facility] Start: 02-24-2024 Mammography [facility] Start: 02-24-2024 Screening for malignant neoplasm of breast Mammogram Screening [facility] Start: 02-20-2024 Hepatitis B surface antibody level LDL CHOLESTEROL [facility] Start: 02-18-2024 ANNUAL PCP TEAM CHRONIC DISEASE VISIT ANNUAL PCP TEAM CHRONIC DISEASE VISIT [facility] Start: 12-13-2023 Screening for malignant neoplasm of cervix [facility] Start: 11-29-2023 Depression Assessment Depression Assessment [facility] Start: 11-19-2023 Hemoglobin A1c measurement HbA1C [facility] Start: 11-19-2023 Hemoglobin A1c/Hemoglobin.total in Blood HbA1C [facility] Start: 10-09-2023 End: 12-09-2023 Hepatic function 2000 panel - Serum or Plasma HEPATIC FUNCTION PNL Lab Routine Hyperlipidemia, unspecified hyperlipidemia type Expected: 10/09/2023, Expires: 12/09/2023 [facility] Work Phone: Comment on above: Expected: 10/09/2023, Expires: Start: 08-12-2023 Patient referral [facility] Work Phone: Start: 08-12-2023 Notification of physician [facility] Start: 08-12-2023 Patient discharge [facility] Start: 08-12-2023 Provision of activity privileges [facility] Start: 08-12-2023 Pulse taking [facility] Start: 08-12-2023 Scheduling [facility] Start: 08-12-2023 Taking patient vital signs [facility] Start: 08-12-2023 [facility] Start: 08-12-2023 Catheterization of vein [facility] Start: 08-12-2023 Medication not administered [facility] Start: 08-12-2023 Notification of physician [facility] Start: 08-12-2023 [facility] Start: 08-11-2023 End: 08-12-2023 [facility] Start: 08-11-2023 Following clinical pathway protocol [facility] Start: 08-11-2023 Ambulation without limitation [facility] Start: 08-11-2023 Assessment of risk of venous thromboembolism [facility] Start: 08-11-2023 Care regimes management [facility] Start: 08-11-2023 Insertion of catheter into peripheral vein [facility] Start: 08-11-2023 Measuring intake and output [facility] Start: 08-11-2023 Notification of physician [facility] Start: 08-11-2023 Oxygen therapy [facility] Start: 08-11-2023 Providing care according to standard [facility] Start: 08-11-2023 Referral to rn stars [facility] Start: 08-11-2023 Tobacco use cessation education [facility] Start: 08-11-2023 Electrocardiographic procedure [facility] Start: 08-11-2023 Verification routine [facility] Start: 08-11-2023 Admission procedure [facility] Start: 07-30-2023 Covid-19 Vaccine ( season) Covid-19 Vaccine () [facility] Start: 07-30-2023 Influenza vaccination [facility] Start: 07-15-2023 End: 09-14-2023 Basic metabolic 2000 panel - Serum or Plasma BASIC METABOLIC PNL Lab Routine Dilated cardiomyopathy (HCC) Expected: 07/15/2023, Expires: 09/14/2023 [facility] Work Phone: Comment on above: Expected: 07/15/2023, Expires: Start: 04-29-2023 Hemoglobin A1c/Hemoglobin.total in Blood HBA1C [facility] Start: 02-17-2023 End: 09-15-2023 CBC panel - Blood by Automated count CBC Lab Routine Type 2 diabetes mellitus with hyperglycemia, with long-term current use of insulin (HCC) Primary hypertension Expected: 02/17/2023, Expires: 09/15/2023 [facility] Work Phone: Comment on above: Expected: 02/17/2023, Expires: 3 Start: 02-17-2023 End: 09-15-2023 Comprehensive metabolic 2000 panel - Serum or Plasma COMP METABOLIC PANEL Lab Routine Type 2 diabetes mellitus with hyperglycemia, with long-term current use of insulin (HCC) Primary hypertension Expected: 02/17/2023, Expires: 09/15/2023 [facility] Work Phone: Comment on above: Expected: 02/17/2023, Expires: 3 Start: 02-17-2023 End: 09-15-2023 Lipid 1996 panel - Serum or Plasma LIPID PANEL BASIC Lab Routine Type 2 diabetes mellitus with hyperglycemia, with long-term current use of insulin (HCC) Primary hypertension Expected: 02/17/2023, Expires: 09/15/2023 [facility] Work Phone: Comment on above: Expected: 02/17/2023, Expires: 3 Start: 02-17-2023 End: 09-15-2023 Thyrotropin [Units/volume] in Serum or Plasma TSH BLD Lab Routine Type 2 diabetes mellitus with hyperglycemia, with long-term current use of insulin (HCC) Primary hypertension Expected: 02/17/2023, Expires: 09/15/2023 [facility] Work Phone: Comment on above: Expected: 02/17/2023, Expires: 3 Start: 11-29-2022 DEPRESSION ASSESSMENT DEPRESSION ASSESSMENT [facility] Start: 08-19-2022 Hepatitis B screening URINE ALBUMIN:CREATININE RATIO [facility] Start: 08-19-2022 Urine screening for protein Diabetic microalbuminuria test [facility] Start: 07-30-2022 Influenza vaccination [facility] Start: 07-15-2022 Diabetic retinal exam Diabetic retinal exam [facility] Start: 12-13-2021 Depression Screen Depression Screen [facility] [employer] Start: 11-19-2021 Creatinine measurement Creatinine monitoring [facility] Start: 11-19-2021 Diabetic foot examination Diabetic foot exam [facility] Start: 11-19-2021 Lipid panel [facility] Start: 11-19-2021 Potassium monitoring Potassium monitoring [facility] Start: 11-18-2021 Hemoglobin A1c measurement A1C test (Diabetic or Prediabetic) [facility] Start: 07-30-2021 Influenza vaccination Flu vaccine (#1) [facility] Start: 05-09-2021 End: 05-09-2021 Office Visit 05/09/2021 Office Visit Cardiology Sadiq Charles DO [address] [place] [address] [phone] [facility] Start: 2021 Mammography MAMMOGRAM [facility] Start: 02-17-2021 HbA1c (Bld) [Mass fraction] A1C test (Diabetic or Prediabetic) [facility] Start: 12-31-2020 End: 12-31-2020 Office Visit 12/31/2020 Office Visit Endocrinology Víctor Parada, PA [address] [address] [phone] [facility] Special[facility] Phys[facility] Start: 10-12-2020 Influenza vaccination Flu vaccine (#1) [facility] [place] Phone: Comment on above: Postponed from 07/30/2019 (Patient Refus ed) Start: 07-30-2020 Influenza vaccination Flu vaccine (#1) [place], [place] Start: 06-15-2020 Diabetic retinal exam Diabetic retinal exam [facility] [place] Phone: Start: 06-14-2020 End: 06-14-2020 Office Visit 06/14/2020 Office Visit Cardiology Sadiq Charles DO [address] [place] [address] [phone] [facility] Cardio Vascular Surgery Start: 05-23-2020 Hepatitis B vaccine (1 of 3 - Risk 3-dose series) Hepatitis B vaccine (1 of 3 - Risk 3-dose series) [facility] Phone: Comment on above: Postponed from 2000 (Patient Refus ed) Start: 05-23-2020 Pneumococcal 0-64 years Vaccine (1 of 1 - PPSV23) Pneumococcal 0-64 years Vaccine (1 of 1 - PPSV23) [facility] Phone: Comment on above: Postponed from 1987 (Patient Refus ed) Start: 01-23-2020 End: 01-23-2020 Office Visit 01/23/2020 Office Visit Family Medicine Ama Bell PA-C [address] [place] [address] [facility] Start: 01-16-2020 End: 01-16-2020 Appointment 01/16/2020 Appointment Physical Therapy [facility] Start: 01-12-2020 A1C test (Diabetic or Prediabetic) A1C test (Diabetic or Prediabetic) [facility] Phone: Start: 01-09-2020 End: 01-09-2020 Office Visit [facility] Start: 01-02-2020 End: 01-02-2020 Patient encounter procedure [facility] litation Services [facility] Start: 12-26-2019 End: 12-26-2019 Patient encounter procedure 12/26/2019 Appointment Physical Therapy Shasta Coe, PT [facility] Start: 12-19-2019 End: 12-19-2019 Patient encounter procedure 12/19/2019 Appointment Physical Therapy [facility] Start: 12-12-2019 End: 12-12-2019 Patient encounter procedure 12/12/2019 Appointment Physical Therapy [facility] Start: 12-05-2019 End: 12-05-2019 Patient encounter procedure 12/05/2019 Appointment Physical Therapy [facility] Start: 01-12-2019 Creatinine monitoring Creatinine monitoring [facility] Phone: Start: 01-12-2019 Diabetic microalbuminuria test Diabetic microalbuminuria test [facility] Phone: Start: 01-12-2019 Lipid screen Lipid screen [facility] Phone: Start: 01-12-2019 Potassium monitoring Potassium monitoring [facility] Phone: Start: 07-13-2018 [object Object] Diabetic foot exam [facility] Phone: Start: 2011 HPV TESTING HPV TESTING [facility] Start: 2011 Screening for malignant neoplasm of cervix HPV Testing [facility] Start: 2000 Hepatitis B Vaccine (1 of 3 - 19+ 3-dose series) Hepatitis B Vaccine (1 of 3 - 19+ 3-dose series) [facility] Start: 2000 Hepatitis B vaccine (1 of 3 - Risk 3-dose series) Hepatitis B vaccine (1 of 3 - Risk 3-dose series) [facility] Start: 2000 Pneumococcal vaccination Pneumococcal Vaccine (1 of 2 - PCV) [facility] Start: 1999 Anxiety Screening Anxiety Screening [facility] Start: 1999 BP Controlled (<130/80) BP Controlled (<130/80) [facility] Start: 1999 Depression Screening Depression Screening [facility] Start: 1999 Hepatitis B surface antibody level LDL CHOLESTEROL [facility] Start: 1999 [facility] Start: 1999 HEPATITIS C SCREENING HEPATITIS C SCREENING [facility] Start: 1999 HIV SCREENING HIV SCREENING [facility] Start: 1999 HIV screening HIV Screening [facility] Start: 1993 Depression Screen Depression Screen [facility] Start: 1991 3 comp foot exam completed DIABETIC FOOT EXAM [facility] Start: 1991 Hepatitis C antibody, confirmatory test DILATED RETINAL EXAM [facility] Start: 1987 PNEUMOCOCCAL (1 - PCV) PNEUMOCOCCAL (1 - PCV) [facility] Start: 1987 Pneumococcal 0-64 years Vaccine (1 - PCV) Pneumococcal 0-64 years Vaccine (1 - PCV) [facility] Start: 1987 Pneumococcal 0-64 years Vaccine (1 of 1 - PPSV23) Pneumococcal 0-64 years Vaccine (1 of 1 - PPSV23) [facility] [place] Start: 1987 Pneumococcal 0-64 years Vaccine (1 of 2 - PPSV23) Pneumococcal 0-64 years Vaccine (1 of 2 - PPSV23) [facility] Start: 1987 Pneumococcal vaccination [facility] Start: 1986 COVID-19 Vaccine (1) COVID-19 Vaccine (1) [facility] Start: 1981 COVID-19 Vaccine (#1) COVID-19 Vaccine (#1) [facility] Start: 1981 HEPATITIS B (1 of 3 - 3-dose series) HEPATITIS B (1 of 3 - 3-dose series) [facility] Start: 1981 Hepatitis B Vaccine (1 of 3 - 3-dose series) Hepatitis B Vaccine (1 of 3 - 3-dose series) [facility] Start: 1981 Hepatitis C screening Hepatitis C screen [facility] ALBUMIN/CREAT RATIO RND UR ALBUM IN/CREAT RATIO RND UR Lab Routine Type 2 diabetes mellitus with hyperglycemia, with long-term current use of insulin (HCC) Ordered: 02/17/2023 [facility] Work Phone: Comment on above: Ordered: 02/17/2023 End: 10-15-2024 Ct abdomen & pelvis w/contrast material CT ABD/PEL W IVCON Radiology Routine Intra-abdominal and pelvic swelling, mass and lump, unspecified site 1 Occurrences starting 09/16/2023 until 10/15/2024 [facility] Work Phone: Comment on above: 1 Occurrences starting 09/16/2023 until 10/15/2024 End: 11-08-2025 CT Chest WO contrast CT CHEST WO IVCON Radiology Routine Lung nodule 1 Occurrences starting 10/09/2024 until 11/08/2025 [facility] Work Phone: Comment on above: 1 Occurrences starting 10/09/2024 until 11/08/2025 CT Chest WO contrast CT CHEST WO IVCON Radiology Routine Lung nodule 11/16/2024 3:49 PM EST [facility] Work Phone: End: 01-05-2026 DBT Breast - bilateral screening EB SCREENING W [facility] Radiology Routine Encounter for screening mammogram for breast cancer 1 Occurrences starting 12/06/2024 until 01/05/2026 [facility] Comment on above: 1 Occurrences starting 12/06/2024 until 01/05/2026 End: 05-09-2026 DBT Breast - bilateral screening EB SCREENING W [facility] Radiology Routine Encounter for screening mammogram for breast cancer 1 Occurrences starting 04/09/2025 until 05/09/2026 [facility] Work Phone: Comment on above: 1 Occurrences starting 04/09/2025 until 05/09/2026 End: 05-05-2024 Echocardiography ECHO Cardiology Routine cardiomyopathy, Hyperlipidemia, unspecified hyperlipidemia type 1 Occurrences starting 05/05/2023 until 05/05/2024 [facility] Work Phone: Comment on above: 1 Occurrences starting 05/05/2023 until 05/05/2024 Hemoglobin A1c/Hemoglobin.total in Blood HEMOGLOBIN A1C (POC) Lab Routine Type 2 diabetes mellitus without complication, without long-term current use of insulin (HCC) Ordered: 01/12/2024 [facility] Work Phone: Comment on above: Ordered: 01/12/2024 End: 03-26-2024 EB DIAGNOSTIC LEFT EB DIAGNOSTIC LEFT Radiology Routine Abnormal mammogram 1 Occurrences starting 02/25/2023 until 03/26/2024 [facility] Work Phone: Comment on above: 1 Occurrences starting 02/25/2023 until 03/26/2024 End: 03-18-2024 EB SCREENING EB SCREENING Radiology Routine Encounter for screening mammogram for malignant neoplasm of breast 1 Occurrences starting 02/17/2023 until 03/18/2024 [facility] Work Phone: Comment on above: 1 Occurrences starting 02/17/2023 until 03/18/2024 End: 02-10-2025 MG Breast Screening EB SCREENING Radiology Routine Encounter for screening mammogram for breast cancer 1 Occurrences starting 01/12/2024 until 02/10/2025 [facility] Work Phone: Comment on above: 1 Occurrences starting 01/12/2024 until 02/10/2025 End: 11-04-2024 Mri abdomen w/o & w/contrast material MRI LIVER WO/W IVCON Radiology Routine Liver lesion 1 Occurrences starting 10/06/2023 until 11/04/2024 [facility] Work Phone: Comment on above: 1 Occurrences starting 10/06/2023 until 11/04/2024 Patient referral [facility] Work Phone: End: 10-12-2024 US ABDOMEN COMPLETE US ABDOMEN COMPLETE Radiology Routine Other ascites 1 Occurrences starting 09/13/2023 until 10/12/2024 [facility] Work Phone: Comment on above: 1 Occurrences starting 09/13/2023 until 10/12/2024 End: 03-26-2024 US BREAST LTD LEFT US BREAST LTD LEFT Radiology Routine Abnormal mammogram 1 Occurrences starting 02/25/2023 until 03/26/2024 [facility] Work Phone: Comment on above: 1 Occurrences starting 02/25/2023 until 03/26/2024 XR Foot - left AP an d Lateral and oblique XR FOOT GENERAL 3V AP/LAT/OBL LEFT Radiology Routine Pain of left heel Nodule of skin of left foot 12/06/2024 2:09 PM EST [facility] Work Phone: End: 03-18-2024 XR SHOULDER GENERAL 3V OR MORE AP/TRUE AP/OTHER RIGHT XR SHOULDER GENERAL 3V OR MORE AP/TRUE AP/OTHER RIGHT Radiology Routine Chronic right shoulder pain 1 Occurrences starting 02/17/2023 until 03/18/2024 [facility] Work Phone: Comment on above: 1 Occurrences starting 02/17/2023 until 03/18/2024 [facility] Immunizations Immunization Date Immunization Notes Care Provider Geoff arredondo 04-01-2015 tetanus toxoid, redu candida diphtheria toxoid, and acellular pertussis vaccine, adsorbed Garry Trill CELL OPERATION SUPERVISOR.ECONOMIC DEVELOPMENT COORDINATOR Work Phone: [facility] 11-30-2014 tetanus toxoid, redu candida diphtheria toxoid, and acellular pertussis vaccine, adsorbed Sonia Castellano PT [facility] Work Phone: Payers Date Payer Category Payer Unknown 2024 Self-pay 2022 Medicaid [id number] 2022 Unknown [id number] 2014 Unknown [id number] 2014 Unknown [facility] MEDICAID xxxxxxxxxxx 2014-Present [phone] CLAIMS DEPARTMENT [address] [place] [address] xxxxxxxxxxx [id number] 1981 Unknown [id number] 1981 Unknown [id number] 1981 Unknown [id number] 1981 Unknown [id number] 1981 Unknown [id number] 1981 Unknown [id number] 1981 Unknown [id number] 1981 Unknown [id number] 1981 Unknown [id number] Unknown [id number] Unknown [id number] Unknown [id number] Social History Date Type Detail Facility Start: 11-07-2019 End: 12-06-2024 Tobacco smoking status NHIS Never smoker [facility] Phone: Start: 11-07-2019 End: 07-10-2022 Alcohol intake Current non-drinker of alcohol (finding) [facility] Phone: Start: 1980 Sex Assigned At Not on file [employer] Phone: Start: 12-13-2020 End: 12-06-2024 Tobacco use and exposure Never used [employer] [place] Start: 06-30-2022 End: 07-10-2022 Exposure to SARS-CoV-2 (event) Not sure [facility] [place] [place] Start: 08-11-2023 End: 09-09-2023 Tobacco smoking consumption unknown [facility] Start: 01-22-2021 History SDOH Financial 5 [facility] Phone: Start: 01-22-2021 History SDOH Food Worry 1 [facility] Phone: Start: 01-22-2021 History SDOH Transpo rt Med 2 [facility] Phone: Start: 02-17-2023 End: 04-30-2025 Alcohol intake Current drinker of alcohol (finding) [facility] Start: 02-17-2023 Alcohol Comment social [facility] Start: 05-05-2023 End: 06-25-2023 History of Social function [facility] Work Phone: Start: 05-05-2023 End: 06-25-2023 Tobacco use panel [facility] Work Phone: Adult Depression Screening Assessment 0 [facility] Work Phone: Start: 1980 Sex Assigned At Female W [facility] Sexual O[facility] Sex Female (finding) [facility] NEGATED: Highlighted row [facility] Medical Equipment Procedure Code Equipment Code Equipment Origin al Text Equipment Identifier Dates [id number] Start: 12-10-2018 End: 02-17-2024 Comment on above: 1 Strip once daily. Use as instructed 1 Each once daily. U se as instructed. Preferred insurance brand. Patient checks sugar s twice daily DX E11.65 USE TO TEST BLOO D SUGAR 4 TIMES A DAYDX - DIABETES MELLITUS - 250.00 [id number] Start: 10-10-2019 by Does not appl y route. [id number] Start: 02-08-2013 Use bid [id number] Start: 03-08-2018 qid [id number] Start: 05-23-2019 USE TO TEST BLOO D SUGAR 4 TIMES A DAYDx - diabetes mellitus - 250.00 [id number] Start: 11-19-2020 qid [id number] Start: 12-05-2020 Patient checks sugars twice daily DX E11.65 [id number] Start: 02-25-2023 End: 12-04-2024 Patient checks sugars twice daily DX E11.65 [id number] Start: 02-25-2023 End: 12-04-2024 1 Strip once daily. Use as instructed [id number] Start: 02-17-2023 End: 02-25-2023 1 Each once pepe y. Use as instructed. Preferred insurance brand. [id number] Start: 02-17-2023 End: 02-25-2023 Patient checks sugars twice daily DX E11.65 [id number] Start: 12-05-2024 End: 06-08-2025 Patient checks sugars twice daily DX E11.65 [id number] Start: 12-05-2024 1 strip two time s a day. Patient checks sugars twice daily DX E11.65 [id number] Start: 06-08-2025 End: 06-08-2026 Goals Date Patient Goal Desired Activity /State Functional Status Date Assessment Result Facility 08-12-2023 Functional status Ambulates Sanjuana Gibson [facility] Work Phone: Mental Status Date Assessment Result Facility 08-12-2023 Cognitive function Voice/Name Sanjuana Momin [facility] Work Phone: Clinical Notes 11-12-2011 to 06-26-2025 Telephone Encounter - Pilar Wallace MA - 06/26/2025 11:38 AM EDTTelephone Encounter - Pilar Wallace MA - 06/26/2025 11:38 AM EDT Note Date & Type Note Facility 06-26-2025 Telephone encount er Note patient electronically requesting refills as follows: Last seen 04/09/25. Requested Prescriptions Pending Prescriptions Disp Refills lisinopril (ZESTRIL) 20 mg tablet 180 tablet Sig: Take 1 tablet by mouth two times a day. Please review and advise. Pilar Wallace MA [facility] 06-26-2025 Miscellaneous Notes Formattin g of this note is different from the original. patient electronically requesting refills as follows: Last seen 04/09/25. Requested Prescriptions Pending Prescriptions Disp Refills lisinopril (ZESTRIL) 20 mg tablet 180 tablet Sig: Take 1 tablet by mouth two times a day. Please review and advise. Pilar Wallace MA documented in this encounter [facility] 06-20-2025 Progress note [facility] 06-20-2025 Progress note Note Date/Time June 20, 2025 8:44am [facility] [address] [place] [address] [address] [place] [address] OFFICE VISIT Date of Service: 06/20/25 MR#: [id number] Acct: [id number] Name: PATT CRANE Rep #: [id number] : 1980 Provider: ODALYS Lynne Age/Sex: 45/F Location[place] [facility] Status: Signed HPI HPI History of Present Illness Details: This is a 45-year-old lady who presents to the office today for a cardiovascularfollow up visit. She had presented to the hospital in July of 2023 with shortness of breath and a non-ST elevation myocardial infarction. This was likely secondary to demand ischemia from elevated blood pressure as well as a cardiomyopathy. Coronary artery did not demonstrate any obstructive stenosis and her ejection fraction was estimated at 20%. She was discharged on medication.It appears that she had been diagnosed approximately 13 years ago after she had a baby with a cardiomyopathy. She acknowledges chest burning sensation with meals. This occurs 2 times per week and located midsternal and radiation to her back. This lasts for hours. This improves with antacid medication. She acknowledges fluttering sensation. She denies bilateral lower extremity edema. She denies claudication. She denies shortness of breath with activity, shortness of breath at rest, orthopnea, or PND. She denies chronic cough. She denies significant, sudden weight gain. She denies lightheadedness, dizziness, near-syncope, or syncope. She denies blood in urine, blood in stool, or epistaxis. He denies fever with chills. She denies myalgia. She denies fatigue. Her exercise level has remained stable. 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 Is patient in pain?: No Allergies latex Adverse Reaction (Mild, Verified 06/20/25 08:17) RASH Penicillins Adverse Reaction (Verified 06/20/25 08:17) UNKNOWN Medications ?Medication ?Instructions ?Recorded ?Confirmed ?Type empagliflozin 25 mg tablet 25 mg PO QDAY 12/13/2405/30 History (Jardiance) carvedilol 25 mg tablet 25 mg PO BID #180 tabs 06/2006/20/25 Rx furosemide 40 mg tablet 40 mg PO DAILY PRN 06/20/25 History lisinopril 20 mg tablet 20 mg PO BID 90 days #180 ta bs 06/20/25 06/20/25 Rx sitagliptin phosphate 100 mg 100 mg PO QDAY 06/20/25 0 06/20/25 History tablet (Januvia) Ejection fraction %: 50 Have you fallen in the past year?: No PFSH Medical History Cardiac LV ejection fraction 10-20% (08/12/23) Idiopathic cardiomyopathy (08/12/23) delivery delivered TIA (transient ischemic attack) Diabetes HTN (hypertension) Surgical History Previous section Family History Mother Diabetes Hypertension Father Diabetes Hypertension Social History household members: significant other and children housing: house Smoking Status: Never smoker alcohol intake: current alcohol intake frequency: holidays/special occasions only substance use type: does not use caffeine: Yes Type: carbonated beverages Number of servings: 3, coffee Number of servings: 1 and tea ROS Const Const: Positive for headache(s) (Wakes up most mornings with a headache that lasts about an hour); Negative for fatigue or weakness Eyes Eyes: Negative for change in vision ENT ENT: Positive for headache(s) (Wakes up most mornings with a headache that lastsabout an hour); Negative for dizziness or balance problems Cardio Chest Pain: Yes Frequency: weekly (2 times per week) and other Character: other (burning) Onset: with meals Location: mid sternal (Into back) Duration: hours Relieving: other (Antacids help a little bit) Palpitations: Yes feels like its: other (fluttering) Edema: None Muscle aches with walking: None Resp Respiratory: Negative for SOB with activity, SOB at rest or SOB orthopnea\SOB lying down GI GI: Negative nausea or heartburn : Negative for hematuria or frequent nighttime urination/ nocturia Musc Musc: Negative for balance problems Skin Skin: Negative non-healing lesions or rash Neuro Neuro: Positive for headache(s) (Wakes up most mornings with a headache that lasts about an hour); Negative for dizziness, lightheadedness, near syncope, syncope or weakness Endo Endo: Negative for fatigue Allergy Allergy/Immunology: Negative for rash Cardiology Exam Const Appearance: cooperative, healthy appearing, comfortable and no acute distress Nutritional Appearance: well nourished and obese Orientation: alert, awake and oriented x3 Head Head: normal to inspection Ears: hearing grossly normal bilaterally Nose: external nose normal Face and Sinus: face symmetric Mouth: moist mucous membranes Eyes General: appearance normal, both eyes and all related structures Eyelids: eyelids normal EOM: EOM intact bilaterally Neck Neck: normal visual inspection and no JVD Carotids: normal carotid upstroke Chest Chest inspection: normal inspection of the chest, symmetric chest movement and normal respiratory effort; Negative cough Auscultation: Bilateral: Clear to Auscultation Cardio Rate: regular rate Rhythm: regular rhythm Heart sounds: S1 normal and S2 normal; Negative rub, gallop or murmur GI GI: normal to inspection and obese Neuro General: patient alert, patient awake, patient oriented x3 and CN's II-XI intactbilaterally Skin Skin: no rashes or lesions noted Extremities Pulses: Normal: Right Posterior Tibial Pulse, Left Posterior Tibial Pulse, RightRadial Pulse and Left Radial Pulse Lower Extremity Edema: None: Bilateral Psych Psychological: normal affect Supplemental Info Supplemental Information Echocardiogram from 06/07/2024: Interpretation Summary Normal LV size. Left ventricular systolic function is lower limits of normal. The left ventricular ejection fraction is 50 %. Mild concentric left ventricular hypertrophy. Mild (1+) eccentric mitral valve insufficiency. Echocardiogram 08/12/23: Interpretation Summary Normal LV size. The estimated ejection fraction is 25 %. Severe global left ventricular systolic dysfunction. The left atrium is mildly enlarged. Mild-Moderate (1-2+) eccentric mitral valve insufficiency. Moderate pulmonary hypertension. Stage 3 diastolic dysfunction. Contrast injection was performed. Cardiac Catheterization 08/12/23: CORONARY ANGIOGRAPHY DOMINANCE: Right Dominant LEFT HEART ASSESSMENT Left Ventricular Ejection Fraction: by LV Gram 20 % Global Hypokinesis - Severe Depressed Left Ventricular systolic function LEFT MAIN: Angiographically normal LEFT ANTERIOR DESCENDING ARTERY: Angiographically normal CIRCUMFLEX ARTERY: Angiographically normal RIGHT CORONARY ARTERY: No significant disease noted CONCLUSIONS Normal coronary arteries Cardiomyopathy: Dilated idiopathic Chest CTA 08/11/23: FINDINGS: Normal enhancement of the main pulmonary artery and right and left pulmonary arteries. Normal enhancement of the bilateral peripheral pulmonary arteries. There is no demonstrated pulmonary embolism. Normal thoracic aorta and visualized great vessels. There is no demonstrated aortic dissection. Heart is enlarged however there is no appreciable coronary artery calcification Normal mediastinum. Normal hilar regions. Normal visualized trachea and bronchi. The lungs are well expanded. Minor atelectasis within the dependent portion of the lungs Tiny right pleural effusion.. Normal chest wall structures. Normal osseous structures. Assessment and Plan Assessment and Plan (1) Peripartum cardiomyopathy, antepartum condition or complication: Status: Acute Plan: Peripartum cardiomyopathy: Echocardiogram 06/07/2024-EF: 50%, 08/12/2023?EF: 25% Heart catheterization: 08/12/2023?normal coronary arteries Twelve-lead EC05/17/2024-sinus rhythm with right bundle branch block [place] [employer] Functional Class: 1 ACC/AHA stage: C Guideline Directed Medical Therapy: Carvedilol 25 mg p.o. twice daily Jardiance 25 mg p.o. daily Lasix 40 mg p.o. daily Lisinopril 20 mg p.o. twice daily As her ejection she is improved and she is doing well, we opted to continue current medications. Spironolactone or changing to Entresto are future options. She appears to be euvolemic on exam. Will monitor palpitations and consider event/holter monitor as needed. She states regular labwork with PCP. (2) HTN (hypertension): Status: Chronic Qualifiers: Hypertension type: primary hypertension Qualified Code(s): I10 - Essential (primary) hypertension Plan: This is borderline elevated today. Weight loss and lifestyle changes recommended. Overtime, we can consider additional medication as indicated. Medications: Refilled carvedilol must administer with a meal/food 25 mg PO BID 180 tabs 3RF lisinopril 20 mg PO BID 90 days 180 tabs 3RF Plan Details Additional Comments: Thank you for allowing us to participate in the patients plan of care, if you have any questions please do not hesitate to call. Plan was reviewed with patient/family member along with red flag symptoms. Understanding was acknowledged. Questions were answered to apparent satisfaction. This note was generated using a voice recognition system and there may be incorrect words, spelling or punctuation that were not noted when reviewing the office note prior to saving. Portions of this documentation were copied and pasted from previous office visitnotes to provide a cohesive continuity of the history. The note has been reviewed, edited, and updated, as necessary. Follow Up: Keep as is (NON DESTRUCTIVE TESTING SPECIALIST) Coding Level of Care Code Off vis,est,level 4 Diagnoses Peripartum cardiomyopathy, antepartum condition or complication O90.3 Primary hypertension I10 Hypertension type: primary hypertension Coding Level of Care Code Off vis,est,level 4 Diagnoses Peripartum cardiomyopathy, antepartum condition or complication O90.3 Primary hypertension I10 Hypertension type: primary hypertension Clinical Quality Measures Falls Risk Screening/Assistive Devices Have you fallen in the past year?: No Cardiac Ejection fraction %: 50 06/20/25 0844 <Electronically signed by Keenan MORROW> Date _ Keenan MORROW Cosigner Signature: Date (if applicable) CC: ODALYS Rodriguez ~ [facility] Work Phone: 1(916) 837-899807-03-2025 NoteHNO ID: [id number] Author: FEDERICO AMBRIZ PT Service: ? Author Type: Physical Therapist Type: Progress Notes Filed: 05/31/2025 15:01 Note Text: Episode Visit Count: 2 Therapist That Will Accept/Oversee The Plan Of Care: Federico Ambriz Start of Care Date: 04/11/25 Plan of Care Certification Date: 05/30/25 Next Certification Due Date: 07/31/25 REHABILITATION AND SPORTS THERAPY PHYSICAL THERAPY PROGRESS REPORT PLAN OF CARE UPDATE: Assessment: Patt Crane demonstrates minimal improvement in rising from a chair, standing, and walking. The patient has progressed toward goals. Patient continues to present with impairments in ADL's, gait, overall function, range of motion, symptom management, and tissue tenderness that interfere with rising from a chair, standing, walking, stair negotiation, heavy exertion, physical activities, recreational activities, working . Current prognosis is Fair due to: clinical presentation, multiple co- morbidities, chronic nature of impairments, limited tolerance to activity, occupational demands . The patient will benefit from continued skilled therapy services to meet the updated goals for this plan of care as noted below. Goals updated on 05/31/2025. Goals for Episode of Care: established 04/11/25 Patient reported outcome of self-efficacy will increase T-score by a minimum 5 points. Improved [place] in home exercise program. Currently met Patient will decrease pain to 2/10 with functional activities to allow patient to improve ambulation and standing tolerance for ADLs. Not met Patient will increase active ROM of L dorsiflexion to 10 degrees to allow pt to to improve performance of ADLs. Not met Patient will demonstrate increase in intrinsic foot strength in order to improve function for basic self-care tasks, home management tasks, light functional tasks, and work tasks. Not met Perform walking for work with decreased report of symptoms/pain in 6 weeks. Not met Perform ADLs and self care without pain. Not met Normal gait. Not met Time Frame for Goals and Treatment : 07/01/25 Planned Interventions, Frequency, and Duration: 1x/week, 4 weeks Total Number of Visits Planned: 4 Patient to be seen for Therapeutic exercise (24920), Neuromuscular re-education (29940), Therapeutic activities (14610), Manual therapy (86080), Self-correction management (05653), Gait Training (20001), Patient/Family/Caregiver Education, Body Mechanics Training PLAN FOR NEXT VISIT: Continue manual as needed, progress stretching to strength per tolerance SUBJECTIVE: Patient is doing better but still in pain. First thing in the morning she is worse. Functional Limitations: rising from a chair, standing, walking, stair negotiation, heavy exertion, physical activities, recreational activities, working Pain: Pain Pain Level: 10 Pain Location: Heel - Left Description: Sharp Frequency: Intermittent, With movement, Walking PROMIS Scales 05/29/2025 04/09/2025 12/10/2024 Higher is Better Phys Func - T Score 45 (within normal limits) 44 (mild dysfunction) 52 (within normal limits) Phys Func - Percentile 31 27 58 Self-Eff Symptom - T Score 43 (Average) 35 (Low) 48 (Average) Self-Eff Symptom - Percentile 24 7 42 T-scores: mean of general population = 50. 5 points is clinically meaningfully difference Percentiles provide an indication of how the patient's score ranks in relation to the general population. Higher percentile rankings indicate better function/quality of life. 50th percentile is the average of the general population and indicates half of respondents had a worse score. OBJECTIVE MEASURES WITH LEVEL OF FUNCTION: LE AROM R Ankle Dorsiflexion: 7 Degrees L Ankle Dorsiflexion: 7 Degrees Gait Gait Observation: Patient ambulates with slight limp and decreased push off of LLE. No walking boot TREATMENT: Therapeutic Exercise: 1: Long sitting or seated gastroc stretch with strap/towel 3x30 sec 2: Great toe extension stretch 3x30 sec 3: Toe-ga alt great and lesser 4 extension 4: Towel scrunch 3x20 5: *Long sitting or seated soleus stretch with strap assist 3x30 sec 6: Objective measures obtained Skilled Intervention: Patient was educated in proper exercise technique and purpose for exercises. Skilled judgment was used in selection of appropriate interventions. Provided written instruction for home exercise program to facilitate proper performance and compliance. Correct performance of therapeutic exercises was facilitated with verbal, visual, and tactile cuing. Manual Therapy: 1: IASTM to L gastroc/achilles/soleus complex with push to tolerance Skilled Intervention: Manual skills to improve joint mobility, ROM, and decrease pain. Utilized anatomy knowledge of the clinician, and assessment of patient's response to intervention. Billing Therapeutic Exercise Treatment Minutes: 25 Manual TherapyTreatment Minutes: 15 Skilled (more content not included)...[facility]07-03-2025 History of Present illness Narrative* Federico Ambriz, PT - 05/31/2025 2:59 PM EDT Images from the original note were not included. Episode Visit Count: 2 Therapist That Will Accept/Oversee The Plan Of Care: Federico Ambriz Start of Care Date: 04/11/25 Plan of Care Certification Date: 05/30/25 Next Certification Due Date: 07/31/25 REHABILITATION AND SPORTS THERAPY PHYSICAL THERAPY PROGRESS REPORT PLAN OF CARE UPDATE: Assessment: Patt Crane demonstrates minimal improvement in rising from a chair, standing, and walking. The patient has progressed toward goals. Patient continues to present with impairments in ADL's, gait, overall function, range of motion, symptom management, and tissue tenderness that interfere with rising from a chair, standing, walking, stair negotiation, heavy exertion, physical activities, recreational activities, working . Current prognosis is Fair due to: clinical presentation, multiple co- morbidities, chronic nature of impairments, limited tolerance to activity, occupational demands . The patient will benefit from continued skilled therapy services to meet the updated goals for this plan of care as noted below. Goals updated on 05/31/2025. Goals for Episode of Care: established 04/11/25 Patient reported outcome of self-efficacy will increase T-score by a minimum 5 points. Improved [place] in home exercise program. Currently met Patient will decrease pain to 2/10 with functional activities to allow patient to improve ambulation and standing tolerance for ADLs. Not met Patient will increase active ROM of L dorsiflexion to 10 degrees to allow pt to to improve performance of ADLs. Not met Patient will demonstrate increase in intrinsic foot strength in order to improve function for basic self-care tasks, home management tasks, light functional tasks, and work tasks. Not met Perform walking for work with decreased report of symptoms/pain in 6 weeks. Not met Perform ADLs and self care without pain. Not met Normal gait. Not met Time Frame for Goals and Treatment : 07/01/25 Planned Interventions, Frequency, and Duration: 1x/week, 4 weeks Total Number of Visits Planned: 4 Patient to be seen for Therapeutic exercise (52054), Neuromuscular re-education (98980), Therapeutic activities (31179), Manual therapy (22511), Self-correction management (74762), Gait Training (54243), Patient/Family/Caregiver Education, Body Mechanics Training PLAN FOR NEXT VISIT: Continue manual as needed, progress stretching to strength per tolerance SUBJECTIVE: Patient is doing better but still in pain. First thing in the morning she is worse. Functional Limitations: rising from a chair, standing, walking, stair negotiation, heavy exertion, physical activities, recreational activities, working Pain: Pain Pain Level: 10 Pain Location: Heel - Left Description: Sharp Frequency: Intermittent, With movement, Walking PROMIS Scales 05/29/2025 04/09/2025 12/10/2024 Higher is Better Phys Func - T Score 45 (within normal limits) 44 (mild dysfunction) 52 (within normal limits) Phys Func - Percentile 31 27 58 Self-Eff Symptom - T Score 43 (Average) 35 (Low) 48 (Average) Self-Eff Symptom - Percentile 24 7 42 T-scores: mean of general population = 50. 5 points is clinically meaningfully difference Percentiles provide an indication of how the patient's score ranks in relation to the general population. Higher percentile rankings indicate better function/quality of life. 50th percentile is the average of the general population and indicates half of respondents had a worse score. OBJECTIVE MEASURES WITH LEVEL OF FUNCTION: LE AROM R Ankle Dorsiflexion: 7 Degrees L Ankle Dorsiflexion: 7 Degrees Gait Gait Observation: Patient ambulates with slight limp and decreased push off of LLE. No walking boot TREATMENT: Therapeutic Exercise: 1: Long sitting or seated gastroc stretch with strap/towel 3x30 sec 2: Great toe extension stretch 3x30 sec 3: Toe-ga alt great and lesser 4 extension 4: Towel scrunch 3x20 5: *Long sitting or seated soleus stretch with strap assist 3x30 sec 6: Objective measures obtained Skilled Intervention: Patient was educated in proper exercise technique and purpose for exercises. Skilled judgment was used in selection of appropriate interventions. Provided written instruction for home exercise program to facilitate proper performance and compliance. Correct performance of therapeutic exercises was facilitated with verbal, visual, and tactile cuing. Manual Therapy: 1: IASTM to L gastroc/achilles/soleus complex with push to tolerance Skilled Intervention: Manual skills to improve joint mobility, ROM, and decrease pain. Utilized anatomy knowledge of the clinician, and assessment of patient's response to intervention. Billing Therapeutic Exercise Treatment Minutes: 25 Manual TherapyTreatment Minutes: 15 Skilled Treatment Time Minutes (timed and untimed codes): 40 Total Session Time (minutes): 40 Session Start Time : 819 Session Stop Time : 899 Federico Ambriz PT * Federico Ambriz PT - 05/30/2025 8:48 AM EDT Program_ID:[id number] Access Code: [email or web address] URL: [email or web address] Date: 05-30-2025 Prepared By: Federico Ambriz Program Notes Exercises - Toe Yoga - Alternating Great Toe and Lesser Toe Extension - 1 x daily - 7 x weekly - 3 sets - 10 reps - Seated Self Great Toe Stretch - 3 x daily - 7 x weekly - 1 sets - 3 reps - Long Sitting Calf Stretch with Strap - 3 x daily - 7 x weekly - 1 sets - 3 reps - Long Sitting Soleus Stretch on Bolster with Strap - 3 x daily - 7 x weekly - 1 sets - 3 reps - Towel Scrunches - 1 x daily - 7 x weekly - 3 sets - 10 [facility] NoteHNO ID: [id number] Author: EMILIA GRIFFITHS, ? Service: ? Author Type: Physician Type: Progress Notes Filed: 05/01/2025 08:41 Note Text: Nicola Beltre is a 45-year-old female with a history of diabetes, presenting for follow-up of left heel pain. Left Heel Pain: - Pain has improved over the past two weeks since going on leave from work. - Previously used a boot when walking extensively; now using it less frequently. - Pain was unbearable prior to leave. 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 - Employer is seeking a position with less walking. - Using a blue insert for support. - Denies significant pain when pressure is applied to the heel. Diabetes: - Most recent A1c in March was 10.6; previous A1c in November was 8.9. - Reports neuropathy. 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 furosemide (LASIX) 40 mg tablet Take 1 tablet by mouth once daily. carvedilol (COREG) 12.5 mg tablet Take 1 tablet by mouth two times a day with meals. SITagliptin phosphate (JANUVIA) 100 mg tablet Take 1 tablet by mouth once daily. 90 tablet 1 rosuvastatin (CRESTOR) 10 mg tablet Take 1 tablet by mouth daily at bedtime. 90 tablet 3 empagliflozin (JARDIANCE) 25 mg tablet Take 1 tablet by mouth daily with breakfast. 90 tablet 3 blood sugar diagnostic (BLOOD GLUCOSE TEST) test strip Patient checks sugars twice daily DX E11.65 100 Strip 2 Lancets Patient checks sugars twice daily DX E11.65 100 Each 2 Blood-Glucose Meter 1 Units once daily. 1 Each 0 No current facility-administered medications for this visit. Family History Problem Relation Age of Onset None Father a.unknown medical problem Stroke Mother a. hypertension, stroke, DM, renal failure None Brother one brother and 3 sisters a. [place] Objective There were no vitals taken for this visit. - Cardiovascular: Dorsalis pedis and posterior tibial pulses palpable bilaterally. Capillary refill time <5 seconds. - Skin: No open sores on bilateral feet; skin well-hydrated. - Musculoskeletal: - Left Foot: - Mild tenderness to palpation over the plantar aspect of the calcaneal tubercle. - No pain with medial or lateral compression. - Right Foot: - No tenderness to palpation over the plantar aspect of the heel. Labs: (March) A1c: 10.6 (November) A1c: 8.9 Imaging: (12/06/2024) X-ray: Plantar heel spur, no fracture Assessment AND Plan 1. Plantar fasciitis (M72.2) - Mild tenderness to the plantar aspect of the left calcaneal tubercle on exam; no pain with medial or lateral compression. - X-rays from December 06, 2024 demonstrated plantar heel spur, no fracture noted. - Advised continuation of stretching exercises, use of supportive footwear, and avoidance of barefoot walking. - Cautioned against excessive use of sandals or poorly supportive shoes. - Discussed potential for corticosteroid injection if pain worsens, but advised against it currently due to elevated HbA1c levels (10.6% in March). - Consider physical therapy if no improvement. - Patient on leave from work; employer is seeking a position with less walking. - Goal is to eventually discontinue use of the boot and return to work. 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 Patient/authorized sales representative sales manager agreed to proceed Emilia Griffiths [facility]06-03-2025 History of Present illness Narrative* Emilia Griffiths - 05/01/2025 8:40 AM EDT Nicola Beltre is a 45-year-old female with a history of diabetes, presenting for follow-up of left heel pain. Left Heel Pain: - Pain has improved over the past two weeks since going on leave from work. - Previously used a boot when walking extensively; now using it less frequently. - Pain was unbearable prior to leave. 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 - Employer is seeking a position with less walking. - Using a blue insert for support. - Denies significant pain when pressure is applied to the heel. Diabetes: - Most recent A1c in March was 10.6; previous A1c in November was 8.9. - Reports neuropathy. 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 furosemide (LASIX) 40 mg tablet Take 1 tablet by mouth once daily. carvedilol (COREG) 12.5 mg tablet Take 1 tablet by mouth two times a day with meals. SITagliptin phosphate (JANUVIA) 100 mg tablet Take 1 tablet by mouth once daily. 90 tablet 1 rosuvastatin (CRESTOR) 10 mg tablet Take 1 tablet by mouth daily at bedtime. 90 tablet 3 empagliflozin (JARDIANCE) 25 mg tablet Take 1 tablet by mouth daily with breakfast. 90 tablet 3 blood sugar diagnostic (BLOOD GLUCOSE TEST) test strip Patient checks sugars twice daily DX E11.65 100 Strip 2 Lancets Patient checks sugars twice daily DX E11.65 100 Each 2 Blood-Glucose Meter 1 Units once daily. 1 Each 0 No current facility-administered medications for this visit. Family History Problem Relation Age of Onset None Father a.unknown medical problem Stroke Mother a. hypertension, stroke, DM, renal failure None Brother one brother and 3 sisters a. [place] Objective There were no vitals taken for this visit. - Cardiovascular: Dorsalis pedis and posterior tibial pulses palpable bilaterally. Capillary refilltime <5 seconds. - Skin: No open sores on bilateral feet; skin well-hydrated. - Musculoskeletal: - Left Foot: - Mild tenderness to palpation over the plantar aspect of the calcaneal tubercle. - No pain with medial or lateral compression. - Right Foot: - No tenderness to palpation over the plantar aspect of the heel. Labs: (March) A1c: 10.6 (November) A1c: 8.9 Imaging: (12/06/2024) X-ray: Plantar heel spur, no fracture Assessment & Plan 1. Plantar fasciitis (M72.2) - Mild tenderness to the plantar aspect of the left calcaneal tubercle on exam; no pain with medialor lateral compression. - X-rays from December 06, 2024 demonstrated plantar heel spur, no fracture noted. - Advised continuation of stretching exercises, use of supportive footwear, and avoidance of barefoot walking. - Cautioned against excessive use of sandals or poorly supportive shoes. - Discussed potential for corticosteroid injection if pain worsens, but advised against it currently due to elevated HbA1c levels (10.6% in March). - Consider physical therapy if no improvement. - Patient on leave from work; employer is seeking a position with less walking. - Goal is to eventually discontinue use of the boot and return to work. - can stop using boot as symptoms improve Recording using ambient AI software for draft documentation of the visit was discussed with the patient/authorized sales representative sales manager; all questions welcomed and answered. Patient/authorized sales representative sales manager agreed to proceed Emilia Griffiths DPM * Piper Williamson RN - 04/30/2025 3:32 PM EDT Patient presents with: Left Foot - Established Patient, Follow Up, Pain AMB ROOMING INTAKE FLOWSHEET DATA Pain Pain Level: 5 Pain Location: Foot-Left Description: Aching, Shooting, Throbbing Duration Units: Minutes Frequency: Intermittent Intervention/Comfort measure: Relaxation, Cold, Heat, Massage Patient presents for 6 week follow up of left heel pain. Received a pneumatic boot and night splintat that time. Pain has improved some, but is still there. Especially first thing in the morning andwhen walking after a period of rest. She has been icing and stretching. Wearing the night splint most nights. States she wore the boot when she was going to be out walking a long time. EBENEZER 03/26/25 [facility] Instructions* Patient Instructions* Emilia Griffiths - 04/30/2025 3:47 PM EDT Images from the original note were not included. What is Plantar Fasciitis? Plantar fasciitis is the most common cause of heel pain. The pain is caused by inflammation of the plantar fascia. If you strain your plantar fascia, it becomes weak, swollen and irritated (inflamed). The resulting pain may be isolated in the heel or may appear at different points on the bottom of the foot, from time to time; it may occur in one foot or both. Some think that plantar fasciitis pain is caused by irritation of nerves from tissue swelling or inflammation, but it is debatable. Plantar fasciitis is common in middle-aged people; it also occurs in younger people who are on their feeta lot, such as athletes or soldiers. The plantar fascia is a strong band of connective tissue that extends from the base of the toes, along the bottom of the foot, to the bottom of the heel (calcaneous bone); it acts like a bowstring tomaintain the arch of the foot. What are heel spurs? The inflammatory reaction of the heel bone may produce spike-like projections of new bone, called heel spurs. The spurs sometimes show on X-rays. They neither cause the initial pain nor do they causethe initial problem. However, later, having to walk on spurs may cause sharp pain. What causes plantar fasciitis? Plantar fasciitis is caused by straining the ligament that supports your arch. Repeated strain can cause tiny tears in the ligament. These lead to pain and swelling. During walking, the plantar fascia experiences tension up to twice the body weight with each step. While this is normal, those who spend much time on their feet, such as nurses, two way radio installer/waiters, andmail carriers, often experience plantar fasciitis. Athletes involved in tennis or other racquet sports, race walking, jogging or running also show a higher incidence of plantar fasciitis than do those participating in other activities. Thus, it's clear that plantar fasciitis is predominantly an overuse injury. In fact, any activity that results in prolonged tension and stress on the plantar fascia may cause plantar fasciitis. It is possible that changes in footwear may play a role in causing plantar fasciitis, no matter what activity is occurring. Those who are overweight are prone to plantarfasciitis. This is true even for sedentary people who get little physical activity. Abnormalities of the foot and ankle joints may predispose some individuals to development of plantar fasciitis (specifically, over pronation of the subtalar joint). Contributing Factors * Flat feet * Toe running, hill running * Sudden weight increase * High-arched, rigid feet * Soft terrain, e.g. running on sand * Obesity * Pronated feet (rolled inward) * Sudden increase in activity* Family tendency * Poor shoe support * Worn out or poorly fitted shoes * Increasing age * Walking,standing or running for long periods of time, especially on hard surfaces. How is the Injury Treated? Rest Your Feet: Limit, or if possible, stop activities that are causing your heel pain. Try to avoid running or walking on hard surfaces, such as concrete. Use pain as your guide. If your foot is toopainful, rest it. Ice: Ice the sore area for 30 to 60 minutes, several times a day, to reduce inflammation and relieve pain. Apply a plastic bag of crushed ice (or a bag of frozen peas) over a towel. Ice the sore areafor 15 minutes after activity/exercise. Application of heat is not generally recommended, as heat ex pands the bone and connective tissue, perhaps exerting greater pressure on nerves and thereby increasing pain. If heat is used, follow it with ice. Medication: If your condition developed recently, anti-inflammatory/analgesic medication, combined with heel pads (see below) may be all that is necessary to relieve pain and to reduce inflammation. If no pain relief has occurred after 2- 3 weeks, however, your doctor may inject either cortisone or local anesthetic directly into the tender area. Exercises: Do simple exercises, such as calf stretches and towel stretches (see below) several times a day, especially when you first get up in the morning. These can help your ligament become more flexible and strengthen the muscles that support your arch. Shoes: Poorly fitting shoes can cause plantar fasciitis. The best type of shoe to wear is a good walking or running shoe with good shock absorption and excellent arch support. You should choose the one that fits the best. [place] with your athletic shoes to find a pair that is comfortable and causes fewer symptoms. Put your shoes on as soon as you get out of bed; going barefoot or wearing slippers may make your pain worse. Good brands include (but are not limited to): New Balance, Asics, Saucony, SAS and Merrel s. Taping: Your doctor may tape your foot to maintain the arch. This takes some of the tension off theplantar fascia. Weight Loss: If your weight is putting extra stress on your feet, your doctor may encourage you to try a weight-loss program. Orthotics: An orthotic insole is a molded piece of rubber, plastic, or other material that you insert into your shoe. It corrects the alignment of your foot and cushions your foot from excessive pounding. These may be prescription or non-prescription. Prescription orthotics are custom-fitted and may fit better and control pain better, but are very expensive. Night Splints: A night splint holds the foot with the toes pointed up and the ankle at a 90-degree angle. This position applies a constant, gentle stretch to the plantar fascia. Corticosteroid Shots: Steroids may be injected into the tender area to reduce inflammation. REHAB Exercises to stretch the plantar fascia, the calf muscles, and the Achilles tendon. Tightness of the muscles of the calves may contribute to plantar fasciitis, so stretching the calf muscles is important to rehabilitation, as is stretching of the plantar fascia itself. Plantar fascial stretches Assisted Dorsiflexion/Plantar Fascia Stretch: Sit on the floor or ground, barefoot, with both legs outstretched. Use a towel or elastic band and wrap it around the ball (and not the toes) of the affected foot. Use the towel or elastic band to provide resistance to upward movement of the forefoot. Pull foot upward (toward your body) with the help of the elastic band or towel, and then return to the starting position. Ten repetitions are recommended. Perform the sequence at least three times a day. Alternate Plantar Fascia Stretch: Sit upright in a chair, barefoot. Place the ankle of the affectedfoot on your opposite knee. Using the same hand as the affected foot, reach across and grab the toes. Flex the ankle toward and pull the toes toward the [place]. To test the stretch, place the thumb of your hand on the bottom of the foot. You should be able to feel the cord-like plantar fascia, running the length of the foot. Hold the stretch for a count of 10, then relax. Repeat 10 times. Do the sequence at least three times a day. Achilles/Calf Stretches Strengthening the muscles of the calves may contribute to successful rehabilitation of plantar fasciitis, as well as prevent reoccurrence. The exercises below will help strengthen the calf muscles. Calf and Achilles Tendon Stretch (Gastrocnemius Stretch): Face a wall, standing an arm's length away. Place one foot back. Place both hands on the wall. Bend the elbows and knee of your forward leg, keeping the heel of the backward foot on the floor and keeping your body straight (aligned), until your forehead nearly touches the wall, or until significant stretch is felt in the muscles of the calf of the backward leg. Hold this position for 10 to 15 seconds. Extend elbows (straighten your arms and stand upright again) and maintain this position for 10 seconds. Repeat this cycle 15 to 20 times. Switch legs and repeat the exercise. documented in this encounterW[facility] NoteHNO ID: [id number] Author: PIPER WILLIAMSON, RN Service: ? Author Type: Registered Nurse Type: Progress Notes Filed: 05/01/2025 08:41 Note Text: Patient presents with: Left Foot - Established Patient, Follow Up, Pain AMB ROOMING INTAKE FLOWSHEET DATA Pain Pain Level: 5 Pain Location: Foot-Left Description: Aching, Shooting, Throbbing Duration Units: Minutes Frequency: Intermittent Intervention/Comfort measure: Relaxation, Cold, Heat, Massage Patient presents for 6 week follow up of left heel pain. Received a pneumatic boot and night splint at that time. Pain has improved some, but is still there. Especially first thing in the morning and when walking after a period of rest. She has been icing and stretching. Wearing the night splint most nights. States she wore the boot when she was going to be out walking a long time. [facility] 03/26/25[facility]05[facility]14[facility] NoteHNO ID: [id number] Author: FEDERICO AMBRIZ PT Service: ? Author Type: Physical Therapist Type: Progress Notes Filed: 04/11/2025 13:00 Note Text: Episode Visit Count: 1 Therapist That Will Accept/Oversee The Plan Of Care: Federico Ambriz Start of Care Date: 04/11/25 Plan of Care Certification Date: 04/11/25 Next Certification Due Date: 05/23/25 Patient Identified by Name and Date of : Yes REHABILITATION AND SPORTS THERAPY PHYSICAL THERAPY EVALUATION PLAN OF CARE: Assessment: Patt Crane presents with diagnosis of L plantar fasciitis that interferes with rising from a chair, standing, walking, stair negotiation, heavy exertion, physical activities, recreational activities, working . The patient presents with impairments in ADL's, gait, overall function, range of motion, strength, symptom management, and tissue tenderness. PROMIS? (Patient-Reported Outcomes Measurement Information System) scores were reviewed and identified as a rehabilitation concern. Prognosis for therapy is Fair due to: clinical presentation, multiple co- morbidities, chronic nature of impairments, limited tolerance to activity, occupational demands . The patient will benefit from skilled therapy services to meet the goals established for this plan of care as noted below. Goals for Episode of Care: established 04/11/25 Patient reported outcome of self-efficacy will increase T-score by a minimum 5 points. [place] in home exercise program. Patient will decrease pain to 2/10 with functional activities to allow patient to improve ambulation and standing tolerance for ADLs. Patient will increase active ROM of L dorsiflexion to 10 degrees to allow pt to to improve performance of ADLs. Patient will demonstrate increase in intrinsic foot strength in order to improve function for basic self-care tasks, home management tasks, light functional tasks, and work tasks. Perform walking for work with decreased report of symptoms/pain in 6 weeks. Perform ADLs and self care without pain. Normal gait. Time Frame for Goals and Treatment : 05/23/25 Planned Interventions, Frequency, and Duration: Current Frequency: 1x/week Duration: 6 weeks Total Number of Visits Planned: 6 Planned Treatment Interventions: Therapeutic exercise (12518), Neuromuscular re-education (82976), Manual therapy (63567), Therapeutic activities (03593), Self-correction management (05058), Gait Training (09171), Patient/Family/Caregiver Education, Body Mechanics Training PLAN FOR NEXT VISIT: Assess HEP compliance and carry over. Given foot and ankle mechanics, she may be a candidate for custom foot orthotics Patient demonstrates good understanding of plan of care and treatment. The above goals and plan of care were discussed and agreed upon by patient/family. SUBJECTIVE: L heel and foot pain since at leats late last year, progressively getting worse. L bottom of heel is where her pain is mostly at and stays there. Patient notes any activity being on her feet makes it hurt worse. But rest does help alleviate the pain. In a Pneumatic walking boot now and this helps delay onset of pain, but still hurts just as bad after work. Functional Limitations: rising from a chair, standing, walking, stair negotiation, heavy exertion, physical activities, recreational activities, working Prior Level of Function: Independent without limitations Intake Information: Prescription present Pain: Pain Pain Level: 10 Pain Location: Heel - Left Description: Sharp Frequency: Intermittent, With movement, Walking PROMIS Scales 04/09/2025 12/10/2024 Higher is Better Phys Func - T Score 44 (mild dysfunction) 52 (within normal limits) Phys Func - Percentile 27 58 Self-Eff Symptom - T Score 35 (Low) 48 (Average) Self-Eff Symptom - Percentile 7 42 T-scores: mean of general population = 50. 5 points is clinically meaningfully difference Percentiles provide an indication of how the patient's score ranks in relation to the general population. Higher percentile rankings indicate better function/quality of life. 50th percentile is the average of the general population and indicates half of respondents had a worse score. OBJECTIVE MEASURES WITH LEVEL OF FUNCTION: LE AROM R Ankle Dorsiflexion: 7 Degrees L Ankle Dorsiflexion: 7 Degrees L Ankle Plantar Flexion: 60 Degrees L Ankle Inversion: 60 L Ankle Eversion: 15 Navicular drop: R: 6 mm L: 9 mm Forefoot supination seen in subtalar neutral Education: Education Learning/educational needs: Lifestyle changes, Health promotion, Home exercise program, Plan of Care, Gait Training Education Provided: Yes, see treatment interventions for education provided Education Provided To: Patient Education Mode/Type: Demonstration, Explanation/Discussion, Literature/Printed Materials, Performance Response to Education/Teach Back: States/Identifies, Return Demonstration TREATMENT: PT Treatme (more content not included)...[facility]05-14-2025 History of Present illness Narrative* Federico Ambriz, PT - 04/11/2025 12:53 PM EDT Images from the original note were not included. Episode Visit Count: 1 Therapist That Will Accept/Oversee The Plan Of Care: Federico Ambriz Start of Care Date: 04/11/25 Plan of Care Certification Date: 04/11/25 Next Certification Due Date: 05/23/25 Patient Identified by Name and Date of : Yes REHABILITATION AND SPORTS THERAPY PHYSICAL THERAPY EVALUATION PLAN OF CARE: Assessment: Patt Crane presents with diagnosis of L plantar fasciitis that interferes with rising from a chair, standing, walking, stair negotiation, heavy exertion, physical activities, recreational activities, working . The patient presents with impairments in ADL's, gait, overall function, range of motion, strength, symptom management, and tissue tenderness. PROMIS (Patient-Reported Outcomes Measurement Information System) scores were reviewed and identified as a rehabilitation concern. Prognosis for therapy is Fair due to: clinical presentation, multiple co- morbidities, chronic nature of impairments, limited tolerance to activity, occupational demands . The patient will benefit from sk illed therapy services to meet the goals established for this plan of care as noted below. Goals for Episode of Care: established 04/11/25 Patient reported outcome of self-efficacy will increase T-score by a minimum 5 points. [place] in home exercise program. Patient will decrease pain to 2/10 with functional activities to allow patient to improve ambulation and standing tolerance for ADLs. Patient will increase active ROM of L dorsiflexion to 10 degrees to allow pt to to improve performance of ADLs. Patient will demonstrate increase in intrinsic foot strength in order to improve function for basicself-care tasks, home management tasks, light functional tasks, and work tasks. Perform walking for work with decreased report of symptoms/pain in 6 weeks. Perform ADLs and self care without pain. Normal gait. Time Frame for Goals and Treatment : 05/23/25 Planned Interventions, Frequency, and Duration: Current Frequency: 1x/week Duration: 6 weeks Total Number of Visits Planned: 6 Planned Treatment Interventions: Therapeutic exercise (00622), Neuromuscular re- education (15865), Manual therapy (99362), Therapeutic activities (55536), Self- correction management (59074), Gait Training (31189), Patient/Family/Caregiver Education, Body Mechanics Training PLAN FOR NEXT VISIT: Assess HEP compliance and carry over. Given foot and ankle mechanics, she may be a candidate for custom foot orthotics Patient demonstrates good understanding of plan of care and treatment. The above goals and plan of care were discussed and agreed upon by patient/family. SUBJECTIVE: L heel and foot pain since at leats late last year, progressively getting worse. L bottom of heel is where her pain is mostly at and stays there. Patient notes any activity being on her feet makes ithurt worse. But rest does help alleviate the pain. In a Pneumatic walking boot now and this helps delay onset of pain, but still hurts just as bad after work. Functional Limitations: rising from a chair, standing, walking, stair negotiation, heavy exertion, physical activities, recreational activities, working Prior Level of Function: Independent without limitations Intake Information: Prescription present Pain: Pain Pain Level: 10 Pain Location: Heel - Left Description: Sharp Frequency: Intermittent, With movement, Walking PROMIS Scales 04/09/2025 12/10/2024 Higher is Better Phys Func - T Score 44 (mild dysfunction) 52 (within normal limits) Phys Func - Percentile 27 58 Self-Eff Symptom - T Score 35 (Low) 48 (Average) Self-Eff Symptom - Percentile 7 42 T-scores: mean of general population = 50. 5 points is clinically meaningfully difference Percentiles provide an indication of how the patient's score ranks in relation to the general population. Higher percentile rankings indicate better function/quality of life. 50th percentile is the average of the general population and indicates half of respondents had a worse score. OBJECTIVE MEASURES WITH LEVEL OF FUNCTION: LE AROM R Ankle Dorsiflexion: 7 Degrees L Ankle Dorsiflexion: 7 Degrees L Ankle Plantar Flexion: 60 Degrees L Ankle Inversion: 60 L Ankle Eversion: 15 Navicular drop: R: 6 mm L: 9 mm Forefoot supination seen in subtalar neutral Education: Education Learning/educational needs: Lifestyle changes, Health promotion, Home exercise program, Plan of Care, Gait Training Education Provided: Yes, see treatment interventions for education provided Education Provided To: Patient Education Mode/Type: Demonstration, Explanation/Discussion, Literature/Printed Materials, Performance Response to Education/Teach Back: States/Identifies, Return Demonstration TREATMENT: PT Treatment Interventions: Therapeutic Exercise Evaluation Therapeutic Exercise: 1: *Long sitting or seated gastroc stretch with strap/towel 3x30 sec 2: *Great toe extension stretch 3x30 sec 3: *Toe-ga alt great and lesser 4 extension 4: *Towel scrunch 3x20 Skilled Intervention: Patient was educated in proper exercise technique and purpose for exercises. Skilled judgment was used in selection of appropriate interventions. Provided written instruction for home exercise program to facilitate proper performance and compliance. Correct performance of therapeutic exercises was facilitated with verbal, visual, and tactile cuing. Billing * Evaluation Low Complexity: 1 Unit Therapeutic Exercise Treatment Minutes: 13 Skilled Treatment Time Minutes (timed and untimed codes): 35 Total Session Time (minutes): 35 Session Start Time : 1115 Session Stop Time : 1150 Federico Ambriz PT * Federico Ambriz PT - 04/11/2025 11:45 AM EDT Program_ID:[id number] Access Code: [email or web address] URL: [email or web address] Date: 04-11-2025 Prepared By: Federico Ambriz Program Notes Exercises - Toe Yoga - Alternating Great Toe and Lesser Toe Extension - 1 x daily - 7 x weekly - 3 sets - 10 reps - Seated Self Great Toe Stretch - 3 x daily - 7 x weekly - 1 sets - 3 reps - Long Sitting Calf Stretch with Strap - 3 x daily - 7 x weekly - 1 sets - 3 reps - Seated Toe Towel Scrunches - 1 x daily - 7 x weekly - 3 sets - 20 reps documented in [facility] encounter[facility] Telephone encounter Note * Telephone Encounter - Akshat Quesada MA - 04/10/2025 9:02 AM EDT Faxed. Placed in immediate scanning. Akshat Quesada MA [facility]05-13-2025 Miscellaneous Notes* Telephone Encounter - Akshat Quesada MA - 04/10/2025 9:02 AM EDT Faxed. Placed in immediate scanning. Akshat Quesada MA * Telephone Encounter - Garry Rodriguez APRN.[facility] - 04/10/2025 8:57 AM EDT Please process work forms thank you. Garry Rodriguez APRN.CNP * Telephone Encounter - Garry Rodriguez APRN.CNP - 04/05/2025 8:33 PM EDT Can we please request last OV note from Dr Blanco's office? TY! documented in this encounterW[facility]05-13-2025 Telephone encounter Note * Telephone Encounter - Garry Rodriguez APRN.CNP - 04/10/2025 8:57 AM EDT Please process work forms thank you. Garry Rodriguez APRN.CNP [facility]05-13-[facility]25 Telephone encounter Note* Telephone Encounter - Piper Williamson RN - 04/10/2025 8:25 AM EDT Called patient to inform her that we have not received the ADA form yet. She states that the ADA will go through her PCP and they will fill it out since they know more of her general history. Patientrequesting a letter stating that she is to wear the boot at work and limit the amount of time that she is on her feet as being on her feet even in the boot for extended periods causes her unbearable p ain (light duty). Please let us know what restrictions you would like us to place in the note and we can write it andsend it to her mychart. [facility]05-13-2025 Miscellaneous Notes* Telephone Encounter - Piper Williamson RN - 04/10/2025 8:25 AM EDT Called patient to inform her that we have not received the ADA form yet. She states that the ADA will go through her PCP and they will fill it out since they know more of her general history. Patientrequesting a letter stating that she is to wear the boot at work and limit the amount of time that she is on her feet as being on her feet even in the boot for extended periods causes her unbearable p ain (light duty). Please let us know what restrictions you would like us to place in the note and we can write it andsend it to her mychart. * Telephone Encounter - Josie Goyal LPN - 04/09/2025 9:00 AM EDT Patient called. Verified name and date of . 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 Griffiths yet. The letter has to state limited walking and not justthat wear of boot. Patient would like return call when letter is done and she will picker tender the letter for her work. Josie Goyal LPN documented in this encounterWvumed[facility]05-12-2025 NoteHNO ID: [id number] Author: GARRY RODRIGUEZ APRN.ECONOMIC DEVELOPMENT COORDINATOR Service: ? Author Type: Nurse Practitioner Type: Progress Notes Filed: 04/09/2025 16:17 Note Text: Subjective The patient consented to the use of ambient AI software for draft documentation of the visit consistent with [facility]?s Notice of Privacy Practices. HPI Patt is a 45-year-old female with a history of diabetes mellitus, cardiomyopathy, NSTEMI, and CVA, presenting for a diabetes follow-up. Patt is currently taking Jardiance 25 mg daily and Trulicity for diabetes management. She reports that Trulicity causes significant nausea and cold sweats, particularly after a dosage increase in January, leading her to discontinue its use. She has previously tried metformin, which caused diarrhea; glimepiride, which resulted in hypoglycemia; and Lantus insulin, which led to weight gain and was deemed ineffective. An attempt to switch to Ozempic in November was unsuccessful due to insurance coverage issues. Patt's Jardiance is prescribed by her rn stars, Keenan JARVIS, due to her history of cardiomyopathy, CVA, and NSTEMI. Her most recent visit with cardiology was on December 13, 2024. She experienced an NSTEMI in July 2023, with a cardiac catheterization revealing no obstructive stenosis and an ejection fraction of 20%. The FL was likely secondary to demand ischemia from elevated blood pressure and cardiomyopathy. Her current cardiac medications include carvedilol 25 mg BID, Jardiance 25 mg daily, Lasix 40 mg daily, and lisinopril 20 mg BID, with the latter increased in November for hypertension management. She takes her lasix as needed. She also started rosuvastatin in November 2024 and denies any side effects from this medication. Patt reports persistent left foot pain due to plantar fasciitis and a plantar medial heel spur, which has been worsening since November. She is undergoing physical therapy and uses night splints and a pneumatic boot. The pain is exacerbated by prolonged standing and heavy lifting at work, leading to lightheadedness and dyspnea. She is seeking work restrictions to limit walking and lifting to no more than 20 lbs. Recent lab results from March 22, 2025, show normal electrolytes, kidney function, liver function, and blood counts, with a slightly elevated RBC count. Phosphorus and magnesium levels were also normal. Her LDL cholesterol is at goal, measured at 70 mg/dL. I reviewed past medical, surgical, social, and family histories today and updated chart. Allergies, chronic medications, and supplements were also reviewed. 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 empagliflozin (JARDIANCE) 25 mg tablet Take 1 tablet by mouth daily with breakfast. blood sugar diagnostic (BLOOD GLUCOSE TEST) test strip Patient checks sugars twice daily DX E11.65 Lancets Patient checks sugars twice daily DX E11.65 Blood-Glucose Meter 1 Units once daily. lisinopril (ZESTRIL) 20 mg tablet Take 1 tablet by mouth two times a day. furosemide (LASIX) 40 mg tablet Take 1 tablet by mouth once daily. carvedilol (COREG) 12.5 mg tablet Take 1 tablet by mouth two times a day with meals. SITagliptin phosphate (JANUVIA) 100 mg tablet Take 1 tablet by mouth once daily. FAMILY HISTORY Problem Relation Age of Onset None Father a.unknown medical problem Stroke Mother a. hypertension, stroke, DM, renal failure None Brother one brother and 3 sisters a. [place] Social History Tobacco Use Smoking status: Never Smokeless tobacco: Never Vaping Use Vaping status: Never Used Substance Use Topics Alcohol use: Yes Comment: social Drug use: Never Review of Systems Constitutional: Negative for appetite change, chills, fatigue, fever and unexpected weight change. HENT: Negative for congestion, ear pain, rhinorrhea and sore throat. Eyes: Negative for pain, discharge, itching and visual disturbance. Respiratory: Positive for shortness of breath. Negative for cough and wheezing. Cardiovascular: Negative for chest pain, palpitations and leg swelling. Gastrointestinal: Negative for abdominal pain, constipation, diarrhea, nausea and vomiting. Musculoskeletal: Positive for arthralgias and gait problem. Sk (more content not included)...[facility]05-12-2025 History of Present illness Narrative* Garry Rodriguez, SHIRLENE.ECONOMIC DEVELOPMENT COORDINATOR - 04/09/2025 3:48 PM EDT Subjective The patient consented to the use of [employer] software for draft documentation of the visit consistent with [facility] s Notice of Privacy Practices. HPI Patt is a 45-year-old female with a history of diabetes mellitus, cardiomyopathy, NSTEMI, and CVA, presenting for a diabetes follow-up. Patt is currently taking Jardiance 25 mg daily and Trulicity for diabetes management. She reportsthat Trulicity causes significant nausea and cold sweats, particularly after a dosage increase in January, leading her to discontinue its use. She has previously tried metformin, which caused diarrhea;glimepiride, which resulted in hypoglycemia; and Lantus insulin, which led to weight gain and was deemed ineffective. An attempt to switch to Ozempic in November was unsuccessful due to insurance coverage issues. Lissys Jardiance is prescribed by her rn stars, Keenan JARVIS, due to her history of cardiomyopathy, CVA, and NSTEMI. Her most recent visit with cardiology was on December 13, 2024. She experienced an NSTEMI in July 2023, with a cardiac catheterization revealing no obstructive stenosis and an ejection fraction of 20%. The FL was likely secondary to demand ischemia from elevated blood pressure and cardiomyopathy. Her current cardiac medications include carvedilol 25 mg BID, Jardiance 25 mg daily, Lasix 40 mg daily, and lisinopril 20 mg BID, with the latter increased in November for hypertension management. She takes her lasix as needed. She also started rosuvastatin in November 2024 and denies any side effects from this medication. Patt reports persistent left foot pain due to plantar fasciitis and a plantar medial heel spur, which has been worsening since November. She is undergoing physical therapy and uses night splints santiago pneumatic boot. The pain is exacerbated by prolonged standing and heavy lifting at work, leading to lightheadedness and dyspnea. She is seeking work restrictions to limit walking and lifting to no more than 20 lbs. Recent lab results from March 22, 2025, show normal electrolytes, kidney function, liver function, and blood counts, with a slightly elevated RBC count. Phosphorus and magnesium levels were also normal. Her LDL cholesterol is at goal, measured at 70 mg/dL. I reviewed past medical, surgical, social, and family histories today and updated chart. Allergies,chronic medications, and supplements were also reviewed. 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 empagliflozin (JARDIANCE) 25 mg tablet Take 1 tablet by mouth daily with breakfast. blood sugar diagnostic (BLOOD GLUCOSE TEST) test strip Patient checks sugars twice daily DX E11.65 Lancets Patient checks sugars twice daily DX E11.65 Blood-Glucose Meter 1 Units once daily. lisinopril (ZESTRIL) 20 mg tablet Take 1 tablet by mouth two times a day. furosemide (LASIX) 40 mg tablet Take 1 tablet by mouth once daily. carvedilol (COREG) 12.5 mg tablet Take 1 tablet by mouth two times a day with meals. SITagliptin phosphate (JANUVIA) 100 mg tablet Take 1 tablet by mouth once daily. FAMILY HISTORY Problem Relation Age of Onset None Father a.unknown medical problem Stroke Mother a. hypertension, stroke, DM, renal failure None Brother one brother and 3 sisters a. [place] Social History Tobacco Use Smoking status: Never Smokeless tobacco: Never Vaping Use Vaping status: Never Used Substance Use Topics Alcohol use: Yes Comment: social Drug use: Never Review of Systems Constitutional: Negative for appetite change, chills, fatigue, fever and unexpected weight change. HENT: Negative for congestion, ear pain, rhinorrhea and sore throat. Eyes: Negative for pain, discharge, itching and visual disturbance. Respiratory: Positive for shortness of breath. Negative for cough and wheezing. Cardiovascular: Negative for chest pain, palpitations and leg swelling. Gastrointestinal: Negative for abdominal pain, constipation, diarrhea, nausea and vomiting. Musculoskeletal: Positive for arthralgias and gait problem. Skin: Negative for rash. Neurological: Negative for dizziness, tremors, weakness and headaches. Psychiatric/Behavioral: Negative for dysphoric mood and sleep disturbance. The patient is not nervous/anxious. Respiratory: (+) shortness of breath Neurological: (+) lightheadedness Musculoskeletal: (+) left foot pain Objective BP 188/98 Pulse 103 Temp 98 Ht 5' 3 (1.60m) Wt 203 lb (92.1kg) SpO2 98% BMI 35.97 kg/(m^2). 188 98 Physical Exam Constitutional: General: She is not in acute distress. Appearance: Normal appearance. HENT: Head: Normocephalic and atraumatic. Mouth/Throat: Lips: [place]. Eyes: General: Lids are normal. Extraocular Movements: Extraocular movements intact. Conjunctiva/sclera: Conjunctivae normal. Pupils: Pupils are equal. Cardiovascular: Rate and Rhythm: Normal rate and regular rhythm. Heart sounds: Normal heart sounds. No murmur heard. Pulmonary: Effort: Pulmonary effort is normal. No respiratory distress. Breath sounds: Normal breath sounds. Abdominal: General: Bowel sounds are normal. Palpations: Abdomen is soft. There is no mass. Musculoskeletal: Cervical back: Normal range of motion. Right lower leg: No edema. Left lower leg: No edema. Comments: Left foot - in boot Skin: General: Skin is warm and dry. Findings: No rash. Neurological: General: No focal deficit present. Mental Status: She is alert and oriented to person, place, and time. Cranial Nerves: No cranial nerve deficit. Motor: Motor function is intact. Coordination: Coordination normal. Gait: Gait is intact. Psychiatric: Attention and Perception: Attention and perception normal. Mood and Affect: Mood and affect normal. Behavior: Behavior normal. Behavior is cooperative. Labs: Latest Ref Rng 01/12/2024 12/06/2024 04/09/2025 Hemoglobin A1C (POCT) 4.3 - 5.6 % 9.4 ! 8.9 ! 10.6 ! (03/22/2025) Laboratory Panel: - Electrolytes: Normal - Kidney function: Normal - Liver function: Normal - RBC: Slightly elevated, not concerning - Phosphorus: Normal - Magnesium: Normal - LDL: 70 mg/dL Tests: (July 2023) Cardiac Catheterization: - Coronary arteries without obstructive stenosis - Ejection fraction: 20% - Likely demand ischemia from elevated blood pressure and cardiomyopathy Assessment/Plan: 1. Type 2 diabetes mellitus with hyperglycemia, without long-term current use of insulin (HCC) (E11.65) Currently on Jardiance 25 mg daily and previously on Trulicity, which was discontinued due to severe nausea. A1c remains elevated at 10%. Previous medications include metformin, which caused diarrhea, glimepiride, which caused hypoglycemia, and Lantus insulin, which led to weight gain and was ineffective. Insurance requires a 4-month trial of another medication before approving Ozempic. - Initiate Januvia once daily for 120 days. - Re-evaluate A1c after 4 months; if still above 7%, will attempt to get approval for Ozempic. 2. Cardiomyopathy, unspecified type (HCC) (I42.9) History of non-ST elevation myocardial infarction in July 2023 with an ejection fraction estimated at 20%. Coronary arteries did not demonstrate any obstructive stenosis. Likely secondary to demand ischemia from elevated blood pressure and cardiomyopathy. Current medications include mg BID, Jardiance 25 mg daily, Lasix 40 mg daily, and lisinopril 20 mg BID. - Continue current cardiac medications. - Follow-up with rn stars Dr. Blanco in May. 3. Essential (primary) hypertension (I10) Blood pressure today was elevated. Lisinopril was increased to 20 mg BID in November by rn stars. - Contact cardiology office to report current blood pressure readings. 4. Dyslipidemia (E78.5) LDL cholesterol at goal of 70 mg/dL. Started on rosuvastatin in November 2024. No reported side effects. - Continue rosuvastatin. 5. Plantar fasciitis of left foot (M72.2) Worsening pain, especially after a few hours on feet. Currently using night splints and pneumatic boot. Started physical therapy. Pain is affecting ability to work. - Continue physical therapy. 6. Presence of intrauterine contraceptive device (Z97.5) Patient reports elevated blood pressure since IUD placement. 7. Encounter for screening mammogram for breast cancer (Z12.31) Ordered mammogram. Garry Rodriguez APRN.ECONOMIC DEVELOPMENT COORDINATOR documented in this encounterW[facility]05-12-2025 Telephone encounter Note * Telephone Encounter - Josie Goyal LPN - 04/09/2025 9:00 AM EDT Patient called. Verified name and date of . 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 Griffiths yet. The letter has to state limited walking and not justthat wear of boot. Patient would like return call when letter is done and she will picker tender the letter for her work. Josie Goyal LPN [facility]05-08-[facility] Telephone encounter Note* Telephone Encounter - Garry Rodriguez APRN.CNP - 04/05/2025 8:33 PM EDT Can we please request last OV note from Dr Blanco's office? TY! [facility]05-08-[facility] Telephone encounter Note* Telephone Encounter - Carmel Dennison MA - 04/05/2025 4:34 PM EDT Patient is informed Carmel Dennison MA [facility]05-08-2025 Miscellaneous Notes* Telephone Encounter - Carmel Dennison MA - 04/05/2025 4:34 PM EDT Patient is informed Carmel Dennison MA * Telephone Encounter - Carmel Dennison MA - 04/05/2025 4:33 PM EDT ----- Message from Garry Rodriguez APRN.CNP sent at 04/04/2025 12:28 AM EDT ----- Labs are normal besides elevated glucose. She is due for diabetes visit in mid- March, please have herschedule. Garry Rodriguez APRN.CNP documented in this encounterWvumed[facility]05-08-2025 Telephone encounter Note * Telephone Encounter - Carmel Dennison MA - 04/05/2025 4:33 PM EDT ----- Message from Garry Rodriguez APRN.CNP sent at 04/04/2025 12:28 AM EDT ----- Labs are normal besides elevated glucose. She is due for diabetes visit in mid- March, please have herschedule. Garry Rodriguez APRN.ECONOMIC DEVELOPMENT COORDINATOR [facility]04-30-2025 NoteHNO ID: [id number] Author: EMILIA GRIFFITHS, ? Service: ? Author Type: Physician Type: Progress Notes Filed: 03/28/2025 07:50 Note Text: Nicola Beltre is a 44-year-old female with a history of DM, presenting for worsening left heel pain. Left Heel Pain: - Worsening since initial visit on 01/09. - Describes pain as 10 after work; usually 7 or 8. - Aggravated by prolonged walking (8 hours) at work. - Pain localized to left heel, now radiating to other areas. - Reports onset of pain in the right heel, attributing it to compensatory weight-bearing. - Consistently performing stretching exercises post-work with no significant relief. Diabetes Mellitus: - Recent HbA1c levels: 8.9% (November), 9.4% (December), 10.7% (July). Musculoskeletal: (+) left heel pain, (+) right foot pain 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 09/05/2012 MRI of the brain showed small high left parietal acute or subacute cortical infarct Goiter 09/05/2012 Iron deficiency anemia 09/05/2012 NSTEMI (non-ST elevated myocardial infarction) ([facility]) 07/2023 Current Outpatient Medications Medication Sig Dispense Refill dulaglutide (TRULICITY SUBCUTANEOUS) Inject subcutaneously. Unsure of dose rosuvastatin (CRESTOR) 10 mg tablet Take 1 tablet by mouth daily at bedtime. 90 tablet 3 empagliflozin (JARDIANCE) 25 mg tablet Take 1 tablet by mouth daily with breakfast. 90 tablet 3 blood sugar diagnostic (BLOOD GLUCOSE TEST) test strip Patient checks sugars twice daily DX E11.65 100 Strip 2 Lancets Patient checks sugars twice daily DX E11.65 100 Each 2 furosemide (LASIX) 40 mg tablet carvedilol (COREG) 12.5 mg tablet lisinopril (ZESTRIL) 20 mg tablet Blood-Glucose Meter 1 Units once daily. 1 Each 0 No current facility-administered medications for this visit. Family History Problem Relation Age of Onset None Father a.unknown medical problem Stroke Mother a. hypertension, stroke, DM, renal failure None Brother one brother and 3 sisters a. [place] Objective There were no vitals taken for this visit. - Cardiovascular: Dorsalis pedis and posterior tibial pulses palpable bilaterally; capillary refill time <5 seconds; skin temperature warm bilaterally; hair growth present. - Skin: No open sores or lesions noted on bilateral feet. - Neurological: Sensation intact bilaterally; negative Tinel's sign bilaterally. - Musculoskeletal: - Left Foot: - Pain to palpation of medial calcaneal tubercle; no pain to palpation of lateral heel or medial/lateral heel. - Right Foot: - No pain to palpation of first metatarsophalangeal joint. Labs: - (12/2023) Hemoglobin A1c: 9.4 - (07/2023) Hemoglobin A1c: 10.7 - (November) Hemoglobin A1c: 8.9 Imaging: - (November) Foot X-ray: Plantar medial heel spur; no fracture identified 1. Pain of left heel (M79.672) 2. Plantar fasciitis (M72.2) - Left heel pain worsening, rated 7-8/10, increasing to 10/10 after prolonged standing at work. Pain localized to the left medial calcaneal tubercle, with no pain on the lateral heel or medial lateral heel. - X-rays from November show a plantar medial heel spur; no fractures identified. - Suspected plantar fasciitis based on clinical presentation and imaging. - Advised continuation of stretching exercises, use of supportive footwear, and avoidance of barefoot walking. - Recommended icing the foot using a frozen water bottle massage for 10 minutes. - Provided a night splint to maintain foot dorsiflexion during sleep. - Discussed potential use of a pneumatic boot for work; prescribed with instructions to monitor for signs of DVT such as shortness of breath or calf pain. - Follow-up in 6 weeks to assess improvement; consider MRI if no significant improvement. - Cautioned against corticosteroid injection due to potential hyperglycemic effects, given recent HbA1c levels of 8.9% in November, 9.4% in December, and 10.7% in July. 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 Left Heel Pain: - Worsening since initial visit on 01/09. - Describes pain as 10 after work; usually 7 or 8. - Aggravated by prolonged walking (8 hours) at work. - Pain localized to left heel, now radiating to other areas. - Reports onset of pain in the right heel, attributing it to compensatory weight-bearing. - Consistently performing stretching exercises post-work with no significant relief. Diabetes Mellitus: - Recent HbA1c levels: 8.9% (November), 9.4% (December), 10.7% (July). Musculoskeletal: (+) left heel pain, (+) right foot pain 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 09/05/2012 MRI of the brain showed small high left parietal acute or subacute cortical infarct Goiter 09/05/2012 Iron deficiency anemia 09/05/2012 NSTEMI (non-ST elevated myocardial infarction) ([facility]) 07/2023 Current Outpatient Medications Medication Sig Dispense Refill dulaglutide (TRULICITY SUBCUTANEOUS) Inject subcutaneously. Unsure of dose rosuvastatin (CRESTOR) 10 mg tablet Take 1 tablet by mouth daily at bedtime. 90 tablet 3 empagliflozin (JARDIANCE) 25 mg tablet Take 1 tablet by mouth daily with breakfast. 90 tablet 3 blood sugar diagnostic (BLOOD GLUCOSE TEST) test strip Patient checks sugars twice daily DX E11.65 100 Strip 2 Lancets Patient checks sugars twice daily DX E11.65 100 Each 2 furosemide (LASIX) 40 mg tablet carvedilol (COREG) 12.5 mg tablet lisinopril (ZESTRIL) 20 mg tablet Blood-Glucose Meter 1 Units once daily. 1 Each 0 No current facility-administered medications for this visit. Family History Problem Relation Age of Onset None Father a.unknown medical problem Stroke Mother a. hypertension, stroke, DM, renal failure None Brother one brother and 3 sisters a. [place] Objective There were no vitals taken for this visit. - Cardiovascular: Dorsalis pedis and posterior tibial pulses palpable bilaterally; capillary refilltime <5 seconds; skin temperature warm bilaterally; hair growth present. - Skin: No open sores or lesions noted on bilateral feet. - Neurological: Sensation intact bilaterally; negative Tinel's sign bilaterally. - Musculoskeletal: - Left Foot: - Pain to palpation of medial calcaneal tubercle; no pain to palpation of lateral heel or medial/lateral heel. - Right Foot: - No pain to palpation of first metatarsophalangeal joint. Labs: - (12/2023) Hemoglobin A1c: 9.4 - (07/2023) Hemoglobin A1c: 10.7 - (November) Hemoglobin A1c: 8.9 Imaging: - (November) Foot X-ray: Plantar medial heel spur; no fracture identified 1. Pain of left heel (M79.672) 2. Plantar fasciitis (M72.2) - Left heel pain worsening, rated 7-8/10, increasing to 10/10 after prolonged standing at work. Pain localized to the left medial calcaneal tubercle, with no pain on the lateral heel or medial lateral heel. - X-rays from November show a plantar medial heel spur; no fractures identified. - Suspected plantar fasciitis based on clinical presentation and imaging. - Advised continuation of stretching exercises, use of supportive footwear, and avoidance of barefoot walking. - Recommended icing the foot using a frozen water bottle massage for 10 minutes. - Provided a night splint to maintain foot dorsiflexion during sleep. - Discussed potential use of a pneumatic boot for work; prescribed with instructions to monitor forsigns of DVT such as shortness of breath or calf pain. - Follow-up in 6 weeks to assess improvement; consider MRI if no significant improvement. - Cautioned against corticosteroid injection due to potential hyperglycemic effects, given recent HbA1c levels of 8.9% in November, 9.4% in December, and 10.7% in July. 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 Patient/authorized sales representative sales manager agreed to proceed Emilia Griffiths DPM * Kristyn Coffey LPN - 03/26/2025 3:08 PM EDT AMB ROOMING INTAKE FLOWSHEET DATA Pain Pain Level: 10 Pain Location: Foot-Left Description: Aching, Cramping, Sharp, Shooting Duration Amount of Time: 10 Duration Units: Months Frequency: Continuous Intervention/Comfort measure: Relaxation, Cold, Massage Comments: Pain that starts in the middle of my heel and then shoots to the outer part of my foot. Throbbing. Pain when I'm walking on it when I sit to rest and then get up again throbbing pain. Has gotten so bad that it's shooting to the side of my foot when I walk Patient presents with: Left Foot - Pain, Established Patient, Follow Up, Numbness Kristyn Coffey LPN [facility] Instructions* Patient Instructions* Emilia Griffiths - 03/26/2025 3:27 PM EDT Images from the original note were not included. What is Plantar Fasciitis? Plantar fasciitis is the most common cause of heel pain. The pain is caused by inflammation of the plantar fascia. If you strain your plantar fascia, it becomes weak, swollen and irritated (inflamed). The resulting pain may be isolated in the heel or may appear at different points on the bottom of the foot, from time to time; it may occur in one foot or both. Some think that plantar fasciitis pain is caused by irritation of nerves from tissue swelling or inflammation, but it is debatable. Plantar fasciitis is common in middle-aged people; it also occurs in younger people who are on their feeta lot, such as athletes or soldiers. The plantar fascia is a strong band of connective tissue that extends from the base of the toes, along the bottom of the foot, to the bottom of the heel (calcaneous bone); it acts like a bowstring tomaintain the arch of the foot. What are heel spurs? The inflammatory reaction of the heel bone may produce spike-like projections of new bone, called heel spurs. The spurs sometimes show on X-rays. They neither cause the initial pain nor do they causethe initial problem. However, later, having to walk on spurs may cause sharp pain. What causes plantar fasciitis? Plantar fasciitis is caused by straining the ligament that supports your arch. Repeated strain can cause tiny tears in the ligament. These lead to pain and swelling. During walking, the plantar fascia experiences tension up to twice the body weight with each step. While this is normal, those who spend much time on their feet, such as nurses, two way radio installer/waiters, andmail carriers, often experience plantar fasciitis. Athletes involved in tennis or other racquet sports, race walking, jogging or running also show a higher incidence of plantar fasciitis than do those participating in other activities. Thus, it's clear that plantar fasciitis is predominantly an overuse injury. In fact, any activity that results in prolonged tension and stress on the plantar fascia may cause plantar fasciitis. It is possible that changes in footwear may play a role in causing plantar fasciitis, no matter what activity is occurring. Those who are overweight are prone to plantarfasciitis. This is true even for sedentary people who get little physical activity. Abnormalities of the foot and ankle joints may predispose some individuals to development of plantar fasciitis (specifically, over pronation of the subtalar joint). Contributing Factors * Flat feet * Toe running, hill running * Sudden weight increase * High-arched, rigid feet * Soft terrain, e.g. running on sand * Obesity * Pronated feet (rolled inward) * Sudden increase in activity* Family tendency * Poor shoe support * Worn out or poorly fitted shoes * Increasing age * Walking,standing or running for long periods of time, especially on hard surfaces. How is the Injury Treated? Rest Your Feet: Limit, or if possible, stop activities that are causing your heel pain. Try to avoid running or walking on hard surfaces, such as concrete. Use pain as your guide. If your foot is toopainful, rest it. Ice: Ice the sore area for 30 to 60 minutes, several times a day, to reduce inflammation and relieve pain. Apply a plastic bag of crushed ice (or a bag of frozen peas) over a towel. Ice the sore areafor 15 minutes after activity/exercise. Application of heat is not generally recommended, as heat ex pands the bone and connective tissue, perhaps exerting greater pressure on nerves and thereby increasing pain. If heat is used, follow it with ice. Medication: If your condition developed recently, anti-inflammatory/analgesic medication, combined with heel pads (see below) may be all that is necessary to relieve pain and to reduce inflammation. If no pain relief has occurred after 2- 3 weeks, however, your doctor may inject either cortisone or local anesthetic directly into the tender area. Exercises: Do simple exercises, such as calf stretches and towel stretches (see below) several times a day, especially when you first get up in the morning. These can help your ligament become more flexible and strengthen the muscles that support your arch. Shoes: Poorly fitting shoes can cause plantar fasciitis. The best type of shoe to wear is a good walking or running shoe with good shock absorption and excellent arch support. You should choose the one that fits the best. [place] with your athletic shoes to find a pair that is comfortable and causes fewer symptoms. Put your shoes on as soon as you get out of bed; going barefoot or wearing slippers may make your pain worse. Good brands include (but are not limited to): New Balance, Asics, Saucony, SAS and Merrel s. Taping: Your doctor may tape your foot to maintain the arch. This takes some of the tension off theplantar fascia. Weight Loss: If your weight is putting extra stress on your feet, your doctor may encourage you to try a weight-loss program. Orthotics: An orthotic insole is a molded piece of rubber, plastic, or other material that you insert into your shoe. It corrects the alignment of your foot and cushions your foot from excessive pounding. These may be prescription or non-prescription. Prescription orthotics are custom-fitted and may fit better and control pain better, but are very expensive. Night Splints: A night splint holds the foot with the toes pointed up and the ankle at a 90-degree angle. This position applies a constant, gentle stretch to the plantar fascia. Corticosteroid Shots: Steroids may be injected into the tender area to reduce inflammation. REHAB Exercises to stretch the plantar fascia, the calf muscles, and the Achilles tendon. Tightness of the muscles of the calves may contribute to plantar fasciitis, so stretching the calf muscles is important to rehabilitation, as is stretching of the plantar fascia itself. Plantar fascial stretches Assisted Dorsiflexion/Plantar Fascia Stretch: Sit on the floor or ground, barefoot, with both legs outstretched. Use a towel or elastic band and wrap it around the ball (and not the toes) of the affected foot. Use the towel or elastic band to provide resistance to upward movement of the forefoot. Pull foot upward (toward your body) with the help of the elastic band or towel, and then return to the starting position. Ten repetitions are recommended. Perform the sequence at least three times a day. Alternate Plantar Fascia Stretch: Sit upright in a chair, barefoot. Place the ankle of the affectedfoot on your opposite knee. Using the same hand as the affected foot, reach across and grab the toes. Flex the ankle toward and pull the toes toward the [place]. To test the stretch, place the thumb of your hand on the bottom of the foot. You should be able to feel the cord-like plantar fascia, running the length of the foot. Hold the stretch for a count of 10, then relax. Repeat 10 times. Do the sequence at least three times a day. Achilles/Calf Stretches Strengthening the muscles of the calves may contribute to successful rehabilitation of plantar fasciitis, as well as prevent reoccurrence. The exercises below will help strengthen the calf muscles. Calf and Achilles Tendon Stretch (Gastrocnemius Stretch): Face a wall, standing an arm's length away. Place one foot back. Place both hands on the wall. Bend the elbows and knee of your forward leg, keeping the heel of the backward foot on the floor and keeping your body straight (aligned), until your forehead nearly touches the wall, or until significant stretch is felt in the muscles of the calf of the backward leg. Hold this position for 10 to 15 seconds. Extend elbows (straighten your arms and stand upright again) and maintain this position for 10 seconds. Repeat this cycle 15 to 20 times. Switch legs and repeat the exercise. Continue your current stretching exercises, including the wall stretch and heel drops, and keep using the recommended supportive shoe inserts with shoes like HOKAs, Salcedo, Asics, or New Balance Apply ice to your left heel after long periods of standing or after work. Use the frozen water bottle to massage your foot arch for 10 minutes daily. Begin using the night splint provided to help stretch your foot while you sleep. Start wearing the pneumatic boot on your left foot at work; you re allowed to walk in it. However, if you experience shortness of breath, chest pain, or pain in your calf, go to the emergency room immediately. Attend your scheduled physical therapy sessions as arranged. Follow up in 6 weeks to assess your progress; if your pain does not improve, further evaluation with an MRI may be considered. documented in this encounterW[facility]04-28-[facility]25 NoteHNO ID: [id number] Author: KRISTYN COFFEY LPN Service: ? Author Type: LICENSED NURSE Type: Progress Notes Filed: 03/28/2025 07:50 Note Text: AMB ROOMING INTAKE FLOWSHEET DATA Pain Pain Level: 10 Pain Location: Foot-Left Description: Aching, Cramping, Sharp, Shooting Duration Amount of Time: 10 Duration Units: Months Frequency: Continuous Intervention/Comfort measure: Relaxation, Cold, Massage Comments: Pain that starts in the middle of my heel and then shoots to the outer part of my foot. Throbbing. Pain when I'm walking on it when I sit to rest and then get up again throbbing pain. Has gotten so bad that it's shooting to the side of my foot when I walk Patient presents with: Left Foot - Pain, Established Patient, Follow Up, Numbness Kristyn Coffey [facility]02-11-2025 NoteHNO ID: [id number] Author: KRISTYN COFFEY LPN Service: ? Author Type: LICENSED NURSE Type: Progress Notes Filed: 01/09/2025 15:58 Note Text: Per Dr. Griffiths, Patt was provided with powerstep gel inserts, size 9, and instructed/educated in its application, wear, and care. All questions were answered, and patient was able to demonstrate competence with the necessary skills to utilize the above equipment. Kristyn Coffey [facility]02-11-2025 History of Present illness Narrative* Kristyn Coffey LPN - 01/09/2025 3:[address] Griffiths, Patt was provided with powerstep gel inserts, size 9, and instructed/educated in its application, wear, and care. All questions were answered, and patient was able to demonstrate competence with the necessary skills to utilize the above equipment. Kristyn Coffey LPN * DonovanEmilia mariscal - 01/09/2025 3:46 PM EST Consultation requested by Dr. Rodriguez for an opinion regarding left heel pain. My final recommendations will be communicated back to the requesting physician by way of shared Medical record or letter to requesting physician via US mail. Initial Podiatric Office Visit: Chief Complaint: This 44 year old female who presents with chief complaint:left heel pain HPI Patient presents to clinic for evaluation of left foot Complains of pain to the plantar aspect of left heel that has been present since last summer States the pain is most severe following periods of rest. No pain really with walking. Only pain present when she first gets up Past treatment: massage. No medication. 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 Unsure of dose rosuvastatin (CRESTOR) 10 mg tablet Take 1 tablet by mouth daily at bedtime. empagliflozin (JARDIANCE) 25 mg tablet Take 1 tablet by mouth daily with breakfast. blood sugar diagnostic (BLOOD GLUCOSE TEST) test strip Patient checks sugars twice daily DX E11.65 Lancets Patient checks sugars twice daily DX E11.65 furosemide (LASIX) 40 mg tablet carvedilol (COREG) 12.5 mg tablet lisinopril (ZESTRIL) 20 mg tablet Blood-Glucose Meter 1 Units once daily. No current facility-administered medications for this visit. ALLERGIES Allergen Reactions Latex Hives, Itching Penicillins Unknown PAST SURGICAL HISTORY Procedure Laterality Date DELIVERY ONLY 08/26/2011 , low transverse D&C, DIAG AND/OR THERAPEUTIC 12/01/2024 ECHO 06/07/2024 LVEF 50% FAMILY HISTORY Problem Relation Age of Onset None Father a.unknown medical problem Stroke Mother a. hypertension, stroke, DM, renal failure None Brother one brother and 3 sisters a. [place] Social History Tobacco Use Smoking status: Never Smokeless tobacco: Never Vaping Use Vaping status: Never Used Substance Use Topics Alcohol use: Yes Comment: social Drug use: Never REVIEW OF SYSTEMS GENERAL: Negative for Malaise, significant weight loss, fever RESPIRATORY: Negative for cough, wheezing and shortness of breath CARDIOVASCULAR: Negative for chest pain, leg swelling and palpitations GI: Negative for abdominal discomfort, blood in stools or black stools and change in bowel habits : Negative for dysuria, frequency and incontinence MUSCULOSKELETAL: Negative for joint pain or swelling, back pain, and muscle pain. SKIN: Negative for lesions, rash, and itching. HEMATOLOGY/LYMPHOLOGY Negative for prolonged bleeding, bruising easily, and swollen nodes. ENDOCRINE: Negative for cold or heat intolerance, polyuria, polydipsia and goiter. NEURO: negative Physical Exam: Constitutional: Pt is a well developed 44 year old female who is alert, oriented and cooperative Eyes: Following during examination. No redness or drainage. Respiratory: RR normal and nonlabored. Even breathing. No evidence of distress or shortness of breath. Psychology: Patient is engaged during conversation. Normal affect and mood. Does not appear depressed or anxious during encounter. Vascular: Dorsalis pedis and posterior tibial pulses palpable as b/l Capillary Fill time < 5 seconds to digits 1-5 b/l Skin temperature warm to warm proximal to distal b/l Hair growth present to digits Neurological: intact light touch/epicritic sensation - tinel intact protective sensation no significant neurological deficits Dermatological: Nails 1-5 b/l appear normal. Webspaces clean and dry 1-4 b/l. Skin appears well hydrated and supple. good color, texture, turgor. No open lesions present. No callosities present. Musculoskeletal/Orthopaedic: Patient has pain to palpation of left plantar heel. No palpable soft-tissue mass b/l Foot type is pronated structurally AJ ROM is full with knee extended and flexed 1st MPJ is full when loaded and no pain or crepitus are noted with ROM. MTJ, STJ are full and free of pain and crepitus. +5/5 muscle strength dorsiflexion, plantarflexion, inversion, eversion b/l Radiographs: 3 views left foot reviewed January 09, 2025: I have personally reviewed and interpreted these XR myself: plantare heel spur ASSESSMENT: (M72.2) Plantar fasciitis (primary encounter diagnosis) (M79.672) Pain of left heel PLAN: 1. Initial Office Visit - A thorough review of the patient's PMH and Podiatric physical exam was completed. 2. Patient advised to perform stretching excercises, icing, and to make appropriate shoe gear changes to include wearing athletic-type shoes with supportive insoles. No barefoot walking. Patient alsogiven written instructions on how to correctly perform the stretching of the achilles tendon/calf st retches, and the heel spur/plantar fasciitis regimen. 3. Patient advised to seek wide, deep toe box, accomodative, comfortable, lace- up, athletic/walkingtype footwear that includes motion control characteristics for support and cushion that need to be worn at all times when weight-bearing. Shoes should be tested for torsional stability as well as proper bending at the toebox rather than at the midfoot. Good quality shoes such as, but not limited to, New Balance or Asics are examples of more proper foot gear. 4. Patient recommended to get powerstep insoles for proper support of the arch in order to alleviate the tension and stress on the plantar fascia associated with normal daily walking. Patient advisedthat these modalities used in conjunction with stretching and icing are able to alleviate most symptoms from this condition. 5. If pain fails to improve, could consider steroid injection or referral to physical therapy. Would be cautious with steroid injection given his history of diabetes 6. Diabetic education performed. Emilia Griffiths DPM Podiatry [address] [facility] [id number] Dept: [phone] Dept * Kristyn Coffey LPN - 01/09/2025 3:33 PM EST AMB ROOMING INTAKE FLOWSHEET DATA Pain Pain Level: 10 Pain Location: Foot-Left Description: Stabbing, Throbbing Duration Amount of Time: 6 Duration Units: Months Frequency: Intermittent Intervention/Comfort measure: Reposition, Relaxation Patient presents with: Left Foot - New, Pain Kristyn Coffey LPN documented in this encounterW[facility]02-11-[facility] Instructions* Patient Instructions* Emilia Griffiths - 01/09/2025 3:55 PM EST Images from the original note were not included. What is Plantar Fasciitis? Plantar fasciitis is the most common cause of heel pain. The pain is caused by inflammation of the plantar fascia. If you strain your plantar fascia, it becomes weak, swollen and irritated (inflamed). The resulting pain may be isolated in the heel or may appear at different points on the bottom of the foot, from time to time; it may occur in one foot or both. Some think that plantar fasciitis pain is caused by irritation of nerves from tissue swelling or inflammation, but it is debatable. Plantar fasciitis is common in middle-aged people; it also occurs in younger people who are on their feeta lot, such as athletes or soldiers. The plantar fascia is a strong band of connective tissue that extends from the base of the toes, along the bottom of the foot, to the bottom of the heel (calcaneous bone); it acts like a bowstring tomaintain the arch of the foot. What are heel spurs? The inflammatory reaction of the heel bone may produce spike-like projections of new bone, called heel spurs. The spurs sometimes show on X-rays. They neither cause the initial pain nor do they causethe initial problem. However, later, having to walk on spurs may cause sharp pain. What causes plantar fasciitis? Plantar fasciitis is caused by straining the ligament that supports your arch. Repeated strain can cause tiny tears in the ligament. These lead to pain and swelling. During walking, the plantar fascia experiences tension up to twice the body weight with each step. While this is normal, those who spend much time on their feet, such as nurses, two way radio installer/waiters, andmail carriers, often experience plantar fasciitis. Athletes involved in tennis or other racquet sports, race walking, jogging or running also show a higher incidence of plantar fasciitis than do those participating in other activities. Thus, it's clear that plantar fasciitis is predominantly an overuse injury. In fact, any activity that results in prolonged tension and stress on the plantar fascia may cause plantar fasciitis. It is possible that changes in footwear may play a role in causing plantar fasciitis, no matter what activity is occurring. Those who are overweight are prone to plantarfasciitis. This is true even for sedentary people who get little physical activity. Abnormalities of the foot and ankle joints may predispose some individuals to development of plantar fasciitis (specifically, over pronation of the subtalar joint). Contributing Factors * Flat feet * Toe running, hill running * Sudden weight increase * High-arched, rigid feet * Soft terrain, e.g. running on sand * Obesity * Pronated feet (rolled inward) * Sudden increase in activity* Family tendency * Poor shoe support * Worn out or poorly fitted shoes * Increasing age * Walking,standing or running for long periods of time, especially on hard surfaces. How is the Injury Treated? Rest Your Feet: Limit, or if possible, stop activities that are causing your heel pain. Try to avoid running or walking on hard surfaces, such as concrete. Use pain as your guide. If your foot is toopainful, rest it. Ice: Ice the sore area for 30 to 60 minutes, several times a day, to reduce inflammation and relieve pain. Apply a plastic bag of crushed ice (or a bag of frozen peas) over a towel. Ice the sore areafor 15 minutes after activity/exercise. Application of heat is not generally recommended, as heat ex pands the bone and connective tissue, perhaps exerting greater pressure on nerves and thereby increasing pain. If heat is used, follow it with ice. Medication: If your condition developed recently, anti-inflammatory/analgesic medication, combined with heel pads (see below) may be all that is necessary to relieve pain and to reduce inflammation. If no pain relief has occurred after 2- 3 weeks, however, your doctor may inject either cortisone or local anesthetic directly into the tender area. Exercises: Do simple exercises, such as calf stretches and towel stretches (see below) several times a day, especially when you first get up in the morning. These can help your ligament become more flexible and strengthen the muscles that support your arch. Shoes: Poorly fitting shoes can cause plantar fasciitis. The best type of shoe to wear is a good walking or running shoe with good shock absorption and excellent arch support. You should choose the one that fits the best. [place] with your athletic shoes to find a pair that is comfortable and causes fewer symptoms. Put your shoes on as soon as you get out of bed; going barefoot or wearing slippers may make your pain worse. Good brands include (but are not limited to): New Balance, Asics, Saucony, SAS and Merrel s. Taping: Your doctor may tape your foot to maintain the arch. This takes some of the tension off theplantar fascia. Weight Loss: If your weight is putting extra stress on your feet, your doctor may encourage you to try a weight-loss program. Orthotics: An orthotic insole is a molded piece of rubber, plastic, or other material that you insert into your shoe. It corrects the alignment of your foot and cushions your foot from excessive pounding. These may be prescription or non-prescription. Prescription orthotics are custom-fitted and may fit better and control pain better, but are very expensive. Night Splints: A night splint holds the foot with the toes pointed up and the ankle at a 90-degree angle. This position applies a constant, gentle stretch to the plantar fascia. Corticosteroid Shots: Steroids may be injected into the tender area to reduce inflammation. REHAB Exercises to stretch the plantar fascia, the calf muscles, and the Achilles tendon. Tightness of the muscles of the calves may contribute to plantar fasciitis, so stretching the calf muscles is important to rehabilitation, as is stretching of the plantar fascia itself. Plantar fascial stretches Assisted Dorsiflexion/Plantar Fascia Stretch: Sit on the floor or ground, barefoot, with both legs outstretched. Use a towel or elastic band and wrap it around the ball (and not the toes) of the affected foot. Use the towel or elastic band to provide resistance to upward movement of the forefoot. Pull foot upward (toward your body) with the help of the elastic band or towel, and then return to the starting position. Ten repetitions are recommended. Perform the sequence at least three times a day. Alternate Plantar Fascia Stretch: Sit upright in a chair, barefoot. Place the ankle of the affectedfoot on your opposite knee. Using the same hand as the affected foot, reach across and grab the toes. Flex the ankle toward and pull the toes toward the seg[place]ia. To test the stretch, place the thumb of your hand on the bottom of the foot. You should be able to feel the cord-like plantar fascia, running the length of the foot. Hold the stretch for a count of 10, then relax. Repeat 10 times. Do the sequence at least three times a day. Achilles/Calf Stretches Strengthening the muscles of the calves may contribute to successful rehabilitation of plantar fasciitis, as well as prevent reoccurrence. The exercises below will help strengthen the calf muscles. Calf and Achilles Tendon Stretch (Gastrocnemius Stretch): Face a wall, standing an arm's length away. Place one foot back. Place both hands on the wall. Bend the elbows and knee of your forward leg, keeping the heel of the backward foot on the floor and keeping your body straight (aligned), until your forehead nearly touches the wall, or until significant stretch is felt in the muscles of the calf of the backward leg. Hold this position for 10 to 15 seconds. Extend elbows (straighten your arms and stand upright again) and maintain this position for 10 seconds. Repeat this cycle 15 to 20 times. Switch legs and repeat the exercise. Powerstep Original Full length. Can purchase at [email or web address] Runner and boots,shoes and more here in [place], [employer] in [place] or [place]. Also can find in [place] in [facility]. Powersteps can also be purchased online, starting around $45.00 If you have a metatarsal or dancer pad for your feet apply the pad directly to the insole so you can interchange between your shoes. Find a shoe with a removable insole and take this out and replace with your powerstep insole. Always bring powersteps with you when shopping for shoes so that you can make sure that everything fits well together documented in [facility] encounterW[facility] NoteHNO ID: [id number] Author: EMILIA GRIFFITHS, ? Service: ? Author Type: Physician Type: Progress Notes Filed: 01/09/2025 15:58 Note Text: Consultation requested by Dr. Rodriguez for an opinion regarding left heel pain. My final recommendations will be communicated back to the requesting physician by way of shared Medical record or letter to requesting physician via US mail. Initial Podiatric Office Visit: Chief Complaint: This 44 year old female who presents with chief complaint:left heel pain HPI Patient presents to clinic for evaluation of left foot Complains of pain to the plantar aspect of left heel that has been present since last summer States the pain is most severe following periods of rest. No pain really with walking. Only pain present when she first gets up Past treatment: massage. No medication. PAIN EVALUATION 01/09/2025 1534 Pain Level: 10 Pain Location: Foot-Left Description: Stabbing;Throbbing Duration Amount of Time: 6 Duration Units: Months Frequency: Intermittent Intervention/Comfort measure: Reposition;Relaxation Hemoglobin A1C (%) Date Value 01/27/2023 10 01/12/2018 9.5 Hemoglobin A1C (POCT) (%) Date Value 12/06/2024 8.9 01/12/2024 9.4 08/20/2023 10.7 PCP: Garry Rodriguez APRN.ECONOMIC DEVELOPMENT COORDINATOR 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 09/05/2012 MRI of the brain showed small high left parietal acute or subacute cortical infarct Goiter 09/05/2012 Iron deficiency anemia 09/05/2012 NSTEMI (non-ST elevated myocardial infarction) ([facility]) 07/2023 Current Outpatient Medications Medication Sig dulaglutide (TRULICITY SUBCUTANEOUS) Inject subcutaneously. Unsure of dose rosuvastatin (CRESTOR) 10 mg tablet Take 1 tablet by mouth daily at bedtime. empagliflozin (JARDIANCE) 25 mg tablet Take 1 tablet by mouth daily with breakfast. blood sugar diagnostic (BLOOD GLUCOSE TEST) test strip Patient checks sugars twice daily DX E11.65 Lancets Patient checks sugars twice daily DX E11.65 furosemide (LASIX) 40 mg tablet carvedilol (COREG) 12.5 mg tablet lisinopril (ZESTRIL) 20 mg tablet Blood-Glucose Meter 1 Units once daily. No current facility-administered medications for this visit. ALLERGIES Allergen Reactions Latex Hives, Itching Penicillins Unknown PAST SURGICAL HISTORY Procedure Laterality Date DELIVERY ONLY 08/26/2011 , low transverse DANDC, DIAG AND/OR THERAPEUTIC 12/01/2024 ECHO 06/07/2024 LVEF 50% FAMILY HISTORY Problem Relation Age of Onset None Father a.unknown medical problem Stroke Mother a. hypertension, stroke, DM, renal failure None Brother one brother and 3 sisters a. [place] Social History Tobacco Use Smoking status: Never Smokeless tobacco: Never Vaping Use Vaping status: Never Used Substance Use Topics Alcohol use: Yes Comment: social Drug use: Never REVIEW OF SYSTEMS GENERAL: Negative for Malaise, significant weight loss, fever RESPIRATORY: Negative for cough, wheezing and shortness of breath CARDIOVASCULAR: Negative for chest pain, leg swelling and palpitations GI: Negative for abdominal discomfort, blood in stools or black stools and change in bowel habits : Negative for dysuria, frequency and incontinence MUSCULOSKELETAL: Negative for joint pain or swelling, back pain, and muscle pain. SKIN: Negative for lesions, rash, and itching. HEMATOLOGY/LYMPHOLOGY Negative for prolonged bleeding, bruising easily, and swollen nodes. ENDOCRINE: Negative for cold or heat intolerance, polyuria, polydipsia and goiter. NEURO: negative Physical Exam: Constitutional: Pt is a well developed 44 year old female who is alert, oriented and cooperative Eyes: Following during examination. No redness or drainage. Respiratory: RR normal and nonlabored. Even breathing. No evidence of distress or shortness of breath. Psychology: Patient is engaged during conversation. Normal affect and mood. Does not appear depressed or anxious during encounter. Vascular: Dorsalis pedis and posterior tibial pulses palpable as b/l Capillary Fill time < 5 seconds to digits 1-5 b/l Skin temperature warm to warm proximal to distal b/l Hair growth present to digits Neurological: intact light touch/epicritic sensation - tinel intact protective sensation no significant neurological deficits Dermatological: Nails 1-5 b/l appear normal. Webspaces clean and dry 1-4 b/l. Skin appears well hydrated and supple. good color, texture, turgor. No open lesions present. No callosities present. Musculoskeletal/Orthopaedic: Patient has pain to palpation of left plantar heel. No palpable soft-tissue mass b/l Foot type is pronated structurally AJ ROM is full with knee extended and flexed 1st MPJ is full when (more content not included)...[facility] 01-09-2025 NoteHNO ID: [id number] Author: KRISTYN COFFEY LPN Service: ? Author Type: LICENSED NURSE Type: Progress Notes Filed: 01/09/2025 15:58 Note Text: AMB ROOMING INTAKE FLOWSHEET DATA Pain Pain Level: 10 Pain Location: Foot-Left Description: Stabbing, Throbbing Duration Amount of Time: 6 Duration Units: Months Frequency: Intermittent Intervention/Comfort measure: Reposition, Relaxation Patient presents with: Left Foot - New, Pain [facility]spinosaJ[facility] Telephone encounter Note* Telephone Encounter - Akshat Quesada MA - 12/12/2024 7:17 AM EST Received fax that ozempic was denied. Placed in red folder to review. Akshat Quesada MA [facility]01-14-2025 Miscellaneous Notes* Telephone Encounter - Akshat Quesada MA - 12/12/2024 7:17 AM EST Received fax that ozempic was denied. Placed in red folder to review. Akshat Quesada MA documented in this encounterWvumed[facility]01-13-2025 Telephone encounter Note * Telephone Encounter - Carmel Dennison MA - 12/11/2024 8:41 AM EST Left message informing patient, phone number to reach the office was left for any questions or concerns. Carmel Dennison MA [facility]01-13-2025 Miscellaneous Notes* Telephone Encounter - Carmel Dennison MA - 12/11/2024 8:41 AM EST Left message informing patient, phone number to reach the office was left for any questions or concerns. Carmel Dennison MA * Telephone Encounter - Akshat Quesada MA - 12/11/2024 7:24 AM EST ----- Message from Garry Rodriguez APRN.ECONOMIC DEVELOPMENT COORDINATOR sent at 12/10/2024 9:25 AM EST ----- Please notify patient results are normal. Thank you. Garry Rodriguez APRN.ECONOMIC DEVELOPMENT COORDINATOR documented in this encounterWv[facility]01-13-2025 Telephone encounter Note * Telephone Encounter - Akshat Queasda MA - 12/11/2024 7:24 AM EST ----- Message from Garry Rodriguez APRN.ECONOMIC DEVELOPMENT COORDINATOR sent at 12/10/2024 9:25 AM EST ----- Please notify patient results are normal. Thank you. Garry Rodriguez APRN.ECONOMIC DEVELOPMENT COORDINATOR [facility]01-09-2025 Telephone encounter Note* Telephone Encounter - Akshat Quesada MA - 12/07/2024 7:19 AM EST Received fax from [employer] eriberto denied ozempic. Please advise. Akshat Quesada MA [facility]01-09-2025 Miscellaneous Notes* Telephone Encounter - Akshat Quesada MA - 12/07/2024 7:19 AM EST Received fax from [employer] stating erikasokelly denied ozempic. Please advise. Akshat Quesada MA documented in this encounterWvumed[facility]01-08-2025 NoteHNO ID: [id number] Author: GARRY RODRIGUEZ APRN.ECONOMIC DEVELOPMENT COORDINATOR Service: ? Author Type: Nurse Practitioner Type: Progress Notes Filed: 12/11/2024 10:35 Note Text: Nicola Crane is a 44 year old female here today for well adult visit. I reviewed past medical, surgical, social, and family histories today and updated chart. Allergies, chronic medications, and supplements were also reviewed. HPI Overall feeling well today Preventative Health: Breast cancer screening - last mammogram was about a year ago Cervical cancer screening - Dr Briones is her OBGYN [place] Colorectal cancer screening - na Osteoporosis screening - na Lipid screening - due for it Type 2 diabetes - Failed metformin and glimepiride in the past Metformin gave her diarrhea Glimepiride - hypoglycemia Lantus insulin - weight gain, not effective Trulicity - she started 3 mg dose , the first dose made her stomach hurt too much so she stopped taking On Jardiance for cardiomyopathy, she continues care with [facility] cardiology - Dr Blanco Has history of stroke, heart attack Left heel pain - only whne she puts weight on it Always has to have shoe on Hurts throughout the day No numbness or tingling Middle of the heel - can feel a little knot there Started a few months ago 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 09/05/2012 Goiter 09/05/2012 Iron deficiency anemia 09/05/2012 NSTEMI (non-ST elevated myocardial infarction) ([facility]) 07/2023 PAST SURGICAL HISTORY Procedure Laterality Date DELIVERY ONLY 08/26/2011 , low transverse DANDC, DIAG AND/OR THERAPEUTIC 12/01/2024 ECHO 06/07/2024 LVEF 50% ALLERGIES Latex and Penicillins MEDICATIONS blood sugar diagnostic (BLOOD GLUCOSE TEST) test strip Patient checks sugars twice daily DX E11.65 Lancets Patient checks sugars twice daily DX E11.65 furosemide (LASIX) 40 mg tablet carvedilol (COREG) 12.5 mg tablet lisinopril (ZESTRIL) 20 mg tablet empagliflozin (JARDIANCE) 10 mg tablet Take by mouth. Blood-Glucose Meter 1 Units once daily. dulaglutide (TRULICITY) 3 mg/0.5 mL pen injector Inject 3 mg subcutaneously one time a week. FAMILY HISTORY Problem Relation Age of Onset None Father a.unknown medical problem Stroke Mother a. hypertension, stroke, DM, renal failure None Brother one brother and 3 sisters a. [place] Social History Tobacco Use Smoking status: Never Smokeless tobacco: Never Vaping Use Vaping status: Never Used Substance Use Topics Alcohol use: Yes Comment: social Drug use: Never Review of Systems Constitutional: Negative for appetite change, chills, fatigue, fever and unexpected weight change. HENT: Negative for congestion, ear pain, rhinorrhea and sore throat. Eyes: Negative for pain, discharge, itching and visual disturbance. Respiratory: Negative for cough, shortness of breath and wheezing. Cardiovascular: Negative for chest pain, palpitations and leg swelling. Gastrointestinal: Negative for abdominal pain, constipation, diarrhea, nausea and vomiting. Genitourinary: Negative for difficulty urinating. Musculoskeletal: Positive for arthralgias. Skin: Negative for rash. Neurological: Negative for dizziness, tremors, weakness and headaches. Psychiatric/Behavioral: Negative for dysphoric mood and sleep disturbance. The patient is not nervous/anxious. Objective BP 122/62 Pulse 56 Temp 98 Resp 16 Ht 5' 3 (1.60m) Wt 201 lb (91.2kg) SpO2 98% BMI 35.61 kg/(m2). Physical Exam Constitutional: Appearance: Normal appearance. She is well-developed. HENT: Head: Normocephalic and atraumatic. Right Ear: Hearing, tympanic membrane, ear canal and external ear normal. No drainage. Left Ear: Hearing, tympanic membrane, ear canal and external ear normal. No drainage. Nose: Nose normal. Mouth/Throat: Pharynx: Uvula midline. Eyes: General: Lids are normal. Right eye: No discharge. Left eye: No discharge. Conjunctiva/sclera: Conjunctivae normal. Pupils: Pupils are equal, round, and reactive to light. Neck: Thyroid: No thyromegaly. Vascular: No carotid bruit. Cardiovascular: Rate and Rhythm: Normal rate and regular rhythm. Heart sounds: Normal heart sounds. No murmur heard. Pulmonary: Effort: Pulmonary effort is normal. Breath sounds: Normal breath sounds. No wheezing, rhonchi or rales. Abdominal: General: Bowel sounds are normal. There is no distension or abdominal bruit. Palpations: Abdomen is soft. There is no mass. Tenderness: There is no abdominal tenderness. Musculoskeletal: Cervical back: Normal range of motion. Right lower leg: No edema. Left lower leg: No edema. Lymphadenopathy: Cervical: No cervical adenopathy. Upper Body: Right upper body (more content not included)...[facility] 12-06-2024 History of Present illness Narrative* Garry Rodriguez APRN.ECONOMIC DEVELOPMENT COORDINATOR - 12/06/2024 1:16 PM EST Subjective Patt Crane is a 44 year old female here today for well adult visit. I reviewed past medical, surgical, social, and family histories today and updated chart. Allergies, chronic medications, and supplements were also reviewed. HPI Overall feeling well today Preventative Health: Breast cancer screening - last mammogram was about a year ago Cervical cancer screening - Dr Briones is her OBGYN [place] Colorectal cancer screening - na Osteoporosis screening - na Lipid screening - due for it Type 2 diabetes - Failed metformin and glimepiride in the past Metformin gave her diarrhea Glimepiride - hypoglycemia Lantus insulin - weight gain, not effective Trulicity - she started 3 mg dose , the first dose made her stomach hurt too much so she stopped taking On Jardiance for cardiomyopathy, she continues care with [facility] cardiology - Dr Blanco Has history of stroke, heart attack Left heel pain - only whne she puts weight on it Always has to have shoe on Hurts throughout the day No numbness or tingling Middle of the heel - can feel a little knot there Started a few months ago 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 09/05/2012 Goiter 09/05/2012 Iron deficiency anemia 09/05/2012 NSTEMI (non-ST elevated myocardial infarction) ([facility]) 07/2023 PAST SURGICAL HISTORY Procedure Laterality Date DELIVERY ONLY 08/26/2011 , low transverse D&C, DIAG AND/OR THERAPEUTIC 12/01/2024 ECHO 06/07/2024 LVEF 50% ALLERGIES Latex and Penicillins MEDICATIONS blood sugar diagnostic (BLOOD GLUCOSE TEST) test strip Patient checks sugars twice daily DX E11.65 Lancets Patient checks sugars twice daily DX E11.65 furosemide (LASIX) 40 mg tablet carvedilol (COREG) 12.5 mg tablet lisinopril (ZESTRIL) 20 mg tablet empagliflozin (JARDIANCE) 10 mg tablet Take by mouth. Blood-Glucose Meter 1 Units once daily. dulaglutide (TRULICITY) 3 mg/0.5 mL pen injector Inject 3 mg subcutaneously one time a week. FAMILY HISTORY Problem Relation Age of Onset None Father a.unknown medical problem Stroke Mother a. hypertension, stroke, DM, renal failure None Brother one brother and 3 sisters a. [place] Social History Tobacco Use Smoking status: Never Smokeless tobacco: Never Vaping Use Vaping status: Never Used Substance Use Topics Alcohol use: Yes Comment: social Drug use: Never Review of Systems Constitutional: Negative for appetite change, chills, fatigue, fever and unexpected weight change. HENT: Negative for congestion, ear pain, rhinorrhea and sore throat. Eyes: Negative for pain, discharge, itching and visual disturbance. Respiratory: Negative for cough, shortness of breath and wheezing. Cardiovascular: Negative for chest pain, palpitations and leg swelling. Gastrointestinal: Negative for abdominal pain, constipation, diarrhea, nausea and vomiting. Genitourinary: Negative for difficulty urinating. Musculoskeletal: Positive for arthralgias. Skin: Negative for rash. Neurological: Negative for dizziness, tremors, weakness and headaches. Psychiatric/Behavioral: Negative for dysphoric mood and sleep disturbance. The patient is not nervous/anxious. Objective BP 122/62 Pulse 56 Temp 98 Resp 16 Ht 5' 3 (1.60m) Wt 201 lb (91.2kg) SpO2 98% BMI 35.61 kg/(m^2). Physical Exam Constitutional: Appearance: Normal appearance. She is well-developed. HENT: Head: Normocephalic and atraumatic. Right Ear: Hearing, tympanic membrane, ear canal and external ear normal. No drainage. Left Ear: Hearing, tympanic membrane, ear canal and external ear normal. No drainage. Nose: Nose normal. Mouth/Throat: Pharynx: Uvula midline. Eyes: General: Lids are normal. Right eye: No discharge. Left eye: No discharge. Conjunctiva/sclera: Conjunctivae normal. Pupils: Pupils are equal, round, and reactive to light. Neck: Thyroid: No thyromegaly. Vascular: No carotid bruit. Cardiovascular: Rate and Rhythm: Normal rate and regular rhythm. Heart sounds: Normal heart sounds. No murmur heard. Pulmonary: Effort: Pulmonary effort is normal. Breath sounds: Normal breath sounds. No wheezing, rhonchi or rales. Abdominal: General: Bowel sounds are normal. There is no distension or abdominal bruit. Palpations: Abdomen is soft. There is no mass. Tenderness: There is no abdominal tenderness. Musculoskeletal: Cervical back: Normal range of motion. Right lower leg: No edema. Left lower leg: No edema. Lymphadenopathy: Cervical: No cervical adenopathy. Upper Body: Right upper body: No supraclavicular adenopathy. Left upper body: No supraclavicular adenopathy. Skin: General: Skin is warm and dry. Findings: No bruising or rash. Neurological: General: No focal deficit present. Mental Status: She is alert and oriented to person, place, and time. Cranial Nerves: No cranial nerve deficit. Sensory: Sensation is intact. Motor: Motor function is intact. Coordination: Coordination is intact. Gait: Gait is intact. Psychiatric: Attention and Perception: Attention and perception normal. Mood and Affect: Mood and affect normal. Speech: Speech normal. Behavior: Behavior normal. Behavior is cooperative. Thought Content: Thought content normal. Cognition and Memory: Cognition normal. Judgment: Judgment normal. Latest Ref Rng 02/19/2023 09/07/2023 12/27/2023 Protein, Total 6.3 - 8.0 g/dL 7.3 Albumin 3.9 - 4.9 g/dL 4.0 Calcium 8.5 - 10.2 mg/dL 9.2 Bilirubin, Total 0.2 - 1.3 mg/dL 0.2 Alkaline Phosphatase 34 - 123 U/L 84 AST 13 - 35 U/L 17 ALT 7 - 38 U/L 16 Glucose 74 - 99 mg/dL 166 (H) BUN 7 - 21 mg/dL 13 Creatinine 0.58 - 0.96 mg/dL 0.86 Sodium 136 - 144 mmol/L 135 (L) Potassium 3.7 - 5.1 mmol/L 4.1 Chloride 97 - 105 mmol/L 103 CO2 22 - 30 mmol/L 22 Anion Gap 9 - 18 mmol/L 10 eGFR >=60 mL/min/1.73m 87 WBC 3.70 - 11.00 k/uL 4.37 RBC 3.90 - 5.20 m/uL 4.75 Hemoglobin 11.5 - 15.5 g/dL 12.4 Hematocrit 36.0 - 46.0 % 38.4 MCV 80.0 - 100.0 fL 80.8 MCH 26.0 - 34.0 pg 26.1 MCHC 30.5 - 36.0 g/dL 32.3 RDW-CV 11.5 - 15.0 % 14.4 Platelet Count 150 - 400 k/uL 347 MPV 9.0 - 12.7 fL 9.7 Absolute nRBC <0.01 k/uL <0.01 Cholesterol, Total <200 mg/dL 186 Triglyceride <150 mg/dL 106 HDL Cholesterol >39 mg/dL 53 Non HDL Cholesterol <130 mg/dL 133 (H) Fasting Time hrs 12 VLDL Cholesterol <30 mg/dL 21 TC:HDL Ratio <5.10 3.51 LDL Cholesterol <100 mg/dL 112 (H) LDL:HDL Ratio <2.54 2.11 TSH 0.270 - 4.200 mIU/L 1.210 Phosphorus 2.7 - 4.8 mg/dL 3.7 Magnesium 1.7 - 2.3 mg/dL 1.9 Latest Ref Rng 08/20/2023 01/12/2024 12/06/2024 Hemoglobin A1C (POCT) 4.3 - 5.6 % 10.7 ! 9.4 ! 8.9 ! ASSESSMENT/PLAN: 1. Well adult exam - ICD9: V70.0, ICD10: Z00.00 (primary diagnosis) - Counseled on healthy diet and regular exercise - Breast cancer screening - ordered mammogram 2. Type 2 diabetes mellitus with hyperglycemia, without long-term current use of insulin (HCC) - ICD9: 250.00, 790.29, ICD10: E11.65 - Uncontrolled Increase Jardiance to 25 mg once a day Metformin - caused diarrhea Trulicity - caused abdominal pain Glimepiride - caused hypoglycemia Lantus insulin - ineffective, caused weight gain Start ozempic 0.25 mg SQ once a week - Statin prescribed - New prescription given - Blood glucose monitoring on a once daily schedule - Counseled on healthy diet and regular exercise - Discussed need for and benefit of weight loss. BMI 35.61 kg/(m^2) - Follow up in 3 months, sooner should any other issues arise. - HEMOGLOBIN A1C (POC) - LIPID PANEL BASIC - MAGNESIUM - PHOSPHORUS INORGANIC - COMPLETE BLOOD COUNT - COMPREHENSIVE METABOLIC PANEL - SEMAGLUTIDE 0.25 MG OR 0.5 MG (2 MG/3 ML) SUBCUTANEOUS PEN INJECTOR - EMPAGLIFLOZIN 25 MG TABLET - ALBUMIN/CREATININE RATIO, URINE 3. History of embolic stroke - ICD9: V12.54, ICD10: Z86.73 Patient would benefit from GLP-1 to prevent MACE Start rosuvastatin 4. History of myocardial infarction - ICD9: 412, ICD10: I25.2 Patient would benefit from GLP-1 to prevent MACE 5. Encounter for screening mammogram for breast cancer - ICD9: V76.12, ICD10: Z12.31 - Set up for mammogram, yearly mammogram recommended - [facility] SCREENING W LINDEN 6. History of cardiomyopathy - ICD9: V12.59, ICD10: Z86.79 - 2010 Continue care with cardiology Dr Blanco On Jardiance - increase to 25 mg once a day 7. Screening for cervical cancer - ICD9: V76.2, ICD10: Z12.4 Patient would like new referral for ERGONOMIST - CONSULT TO URGENT CARE 8. Pain of left heel - ICD9: 729.5, ICD10: M79.672 - XR FOOT GENERAL 3V AP/LAT/OBL LEFT - CONSULT TO PODIATRY 9. Nodule of skin of left foot - ICD9: 782.2, ICD10: R22.42 - XR FOOT GENERAL 3V AP/LAT/OBL LEFT - CONSULT TO PODIATRY 10. Screening for depression - ICD9: V79.0, ICD10: Z13.31 - DEPRESSION SCREENING 11. Encounter for screening examination for other mental health and behavioral disorders - ICD9: V79.8, ICD10: Z13.39 - ANXIETY SCREENING Garry Rodriguez APRN.[place] [facility] Telephone encounter Note * Telephone Encounter - Akshat Quesada MA - 12/04/2024 3:14 PM EST Patient requesting refills: Last office visit 01/12/2024. Last refill 02/25/2023 . 12/06/2024 Requested Prescriptions Pending Prescriptions Disp Refills blood sugar diagnostic (BLOOD GLUCOSE TEST) test strip 100 Strip 2 Sig: Patient checks sugars twice daily DX E11.65 Lancets 100 Each 2 Sig: Patient checks sugars twice daily DX E11.65 Please review and advise. Akshat Quesada MA [facility]01-06-2025 Miscellaneous Notes* Telephone Encounter - Akshat Quesada MA - 12/04/2024 3:14 PM EST Patient requesting refills: Last office visit 01/12/2024. Last refill 02/25/2023 . Nov 12/06/2024 Requested Prescriptions Pending Prescriptions Disp Refills blood sugar diagnostic (BLOOD GLUCOSE TEST) test strip 100 Strip 2 Sig: Patient checks sugars twice daily DX E11.65 Lancets 100 Each 2 Sig: Patient checks sugars twice daily DX E11.65 Please review and advise. Akshat Quesada MA documented in this encounterW[facility]12-19-2024 History of Present illness Narrative* Josie Parish, RT(R) - 11/16/2024 3:40 PM EST Radiology Service Progress Note PATIENT NAME: Patt Crane DATE OF SERVICE: November 16, 2024 TIME: 3:50 PM PATIENT IDENTITY VERIFICATION COMPLETED USING TWO (2) IDENTIFIERS: Name and Date of confirmedby patient verbally. FALL SCREENING: Has the patient had 2 falls in the last year or 1 fall with injury or currently using an Ambulatory Assistive Device (Walker, Cane, Wheelchair, Crutches, etc.)? No PATIENT GENDER DATA: Female. status: : No status: NO. PATIENT RELEVANT IMPLANT DATA REVIEWED: Yes PATIENT PRESENTS WITH AN IMPLANTABLE OR ATTACHED VETERANS SERVICE REPRESENTATIVE: No RADIOLOGY DEPARTMENT: CT; Exam(s) Completed: Chest PERIPHERAL IV DATA: Not applicable SIGNED BY: RT Jaquan(Andrew) November 16, 2024 3:50 PM documented in this encounterWvumed[facility]12-19-2024 NoteHNO ID: [id number] Author: JOSIE PARISH RT(Andrew) Service: ? Author Type: Water Treatment Specialist Type: Progress Notes Filed: 11/16/2024 15:50 Note Text: Radiology Service Progress Note PATIENT NAME: Patt Crane DATE OF SERVICE: November 16, 2024 TIME: 3:50 PM PATIENT IDENTITY VERIFICATION COMPLETED USING TWO (2) IDENTIFIERS: Name and Date of confirmed by patient verbally. FALL SCREENING: Has the patient had 2 falls in the last year or 1 fall with injury or currently using an Ambulatory Assistive Device (Walker, Cane, Wheelchair, Crutches, etc.)? No PATIENT GENDER DATA: Female. status: : No status: NO. PATIENT RELEVANT IMPLANT DATA REVIEWED: Yes PATIENT PRESENTS WITH AN IMPLANTABLE OR ATTACHED VETERANS SERVICE REPRESENTATIVE: No RADIOLOGY DEPARTMENT: CT; Exam(s) Completed: Chest PERIPHERAL IV DATA: Not applicable SIGNED BY: RT Jaquan(R) November 16, 2024 3:50 [facility]11-11-2024 Telephone encounter Note* Telephone Encounter - Akshat Quesada MA - 10/09/2024 2:35 PM EST Patient aware. Akshat JOHN Quesada [facility]11-11-2024 Miscellaneous Notes* Telephone Encounter - Kirbybinaosman AkshatJOHN - 10/09/2024 2:35 PM EST Patient aware. Akshat OrrJOHN montano * Telephone Encounter - Garry Rodriguez APRN.CNP - 10/09/2024 2:22 PM EST Thank you. Please see orders. Garry Rodriguez APRN.CNP * Telephone Encounter - Carmel Dennison MA - 10/09/2024 7:42 AM EST ----- Message from Pilar Sultana MA sent at 10/07/2023 10:14 AM EST ----- Patient due for [address] chest to monitor small lung nodule. Pilar Wallace MA documented in this encounterW[facility]11-11-2024 Telephone encounter Note * Telephone Encounter - Garry Rodriguez APRN.CNP - 10/09/2024 2:22 PM EST Thank you. Please see orders. Garry Rodriguez APRN.[place] [facility]11-11-2024 Telephone encounter Note* Telephone Encounter - Carmel Dennison MA - 10/09/2024 7:42 AM EST ----- Message from Pilar Sultana MA sent at 10/07/2023 10:14 AM EST ----- Patient due for [address] chest to monitor small lung nodule. Pilar Wallace MA [facility]04-23-2024 Telephone encounter Note* Telephone Encounter - Garry Rodriguez APRN.CNP - 03/21/2024 5:04 PM EDT Thank you, we will continue Trulicity 3 mg once a week. Garry Rodriguez APRN.CNP [facility]04-23-2024 Miscellaneous Notes* Telephone Encounter - Garry Rodriguez APRN.CNP - 03/21/2024 5:04 PM EDT Thank you, we will continue Trulicity 3 mg once a week. Garry Rodriguez APRN.CNP * Telephone Encounter - Akshat Quesada MA - 03/21/2024 3:14 PM EDT Patient states the dose she is taking now has made her sugar drop in the 70's. She got really dizzylast week. Took Trulicity dose yesterday and did not have this happen. She thinks she should keep the same dose . Please advise. Akshat Quesada MA * Telephone Encounter - Akshat Quesada MA - 03/20/2024 4:59 PM EDT Dustin on pt. Vm to contact office and let us know. Akshat Quesada MA * Telephone Encounter - Garry Rodriguez APRN.CNP - 03/20/2024 4:54 PM EDT Please call patient and see how she's feeling on Trulicity. We can increase her dose as long as sheisn't feeling too nauseated or constipated. Garry Rodriguez APRN.CNP * Telephone Encounter - Garry Rodriguez APRN.CNP - 03/20/2024 4:53 PM EDT ----- Message from Garry Rodriguez APRN.CNP sent at 02/16/2024 5:30 PM EDT ----- Increase Trulicity to 4 mg? documented in this encounterW[facility]04-23-2024 Telephone encounter Note * Telephone Encounter - Akshat Quesada MA - 03/21/2024 3:14 PM EDT Patient states the dose she is taking now has made her sugar drop in the 70's. She got really dizzylast week. Took Trulicity dose yesterday and did not have this happen. She thinks she should keep the same dose . Please advise. Akshat Quesada MA [facility]04-22-2024 Telephone encounter Note* Telephone Encounter - Akshat Quesada MA - 03/20/2024 4:59 PM EDT Dustin on pt. Vm to contact office and let us know. Akshat Quesada MA [facility]04-22-2024 Telephone encounter Note* Telephone Encounter - Garry Rodriguez APRN.CNP - 03/20/2024 4:54 PM EDT Please call patient and see how she's feeling on Trulicity. We can increase her dose as long as sheisn't feeling too nauseated or constipated. Garry Rodriguez APRN.CNP [facility]04-22-2024 Telephone encounter Note* Telephone Encounter - Garry Rodriguez APRN.CNP - 03/20/2024 4:53 PM EDT ----- Message from Garry Rodriguez APRN.CNP sent at 02/16/2024 5:30 PM EDT ----- Increase Trulicity to 4 mg? [facility]03-[facility] Note ORIGINAL EXAMINATION: Ultrasound pelvis, 02/16/2024 10:47 am transabdominal and transvaginal with 3D imaging also COMPARISON: None HISTORY: ORDERING SYSTEM PROVIDED HISTORY: Reason for Exam: size evaluation for surgical decision making, uterine fibroids FINDINGS: The uterus is markedly enlarged at least 12.3 x 8.1 x 7.5 cm. There is a large hypoechoic mass in the posterior fundus/body to the left of midline that is mostly subserosal 7.3 x 6.2 x 6.4 cm. Within the fundus centrally there is a large heterogeneous solid area that is probably another fibroid that is at least 4.7 x 3.3 cm. The endometrial stripe is not clearly localized on the transvaginal images probably due to displacement by the fibroids.. On the suprapubic images the endometrial stripe is measured at 7 mm which is normal. Right ovary: 2.2 x 2.6 x 1.9 cm. There are small follicles in the ovary. Left ovary: 2.9 x 2.4 x 2.9 cm. There is no adnexal mass or pelvic free fluid. IMPRESSION: Enlarged uterus. There is a large left-sided subserosal fibroid. Suspect another intramural fibroid as described. Poorly localized endometrium seems to be within normal limits on the suprapubic images. Interpreted by: Adan Moody MD Preliminary Report By: Adan Moody MD Electronically signed By Adan Moody MD Dictated Date: 02/16/2024 3:16:35 PM Prelim Date: 02/16/2024 3:21:09 PM Sign Date: 02/16/2024 3:21:09 PM Ordering Provider: [facility]02-14-2024 Miscellaneous Notes* Telephone Encounter - Evelin Saunders - 01/12/2024 11:[address] ABD/PEL results faxed to Dr Gabriel. Faxed to [phone] documented in this encounterWvumed[facility]02-14-2024 History of Present illness Narrative* Garry Rodriguez APRN.ECONOMIC DEVELOPMENT COORDINATOR - 01/12/2024 9:58 AM EST Subjective Patt Crane is a 43 year old female here today for diabetes follow-up visit. I reviewed past medical, surgical, social, and family histories today and updated chart. Allergies, chronic medications, and supplements were also reviewed. HPI Patient has type 2 diabetes. Right ear has been hurting - about a week now Throat was hurting a week before - feels better now No cough or runny nose No fevers Feeling better since started furosemide - doesn't feel swollen, can breath Denies dizziness, chest pain, shortness of breath, changes in vision, fatigue, foot pain. Denies numbness and tingling in extremities. Denies polydipsia, polyphagia, polyuria. Home Blood Sugars: 166 last time she checked Usually over 200 Medication Compliance: She is not taking Lantus insulin, states it was never sent to pharmacy She is taking Trulicity 0.75 mg weekly Low Blood Sugars: none Diet: following diabetic diet Exercise: walks all day Eye Exam: up to date got glasses but cannot see out of them Tried for a couple week Podiatry: no issues Tobacco use - none Alcohol use - none Patient had RUQ ultrasound done in August 2023 showing indeterminate 2.2 cm liver lesion, trace free fluid in Morison's pouch. Radiologist recommended further imaging with CT scan. CT A/P done in September 2023 showing fatty infiltration of the liver and 1.6 cm lesion in the liver. MRI liver was recommended to characterize the lesion further. There were incidental findings of large uterine fibroids, right adnexal cyst, and mild pelvic ascites She has been seeing a ERGONOMIST in [place]. Dr Kristyn Briones Gets pelvic pain, worse right before period Periods are heavy MRI liver was completed 12/29/23 - it was negative for liver lesions. The radiologist notes the previous lesions were likely local fatty infiltrates that resolved. There were no incidental findings. Right shoulder - still hurting Mainly with lifting above head or with lifting something heavy She had a normal x-ray She was ordered physical therapy but never completed because she states no one ever called to get her scheduled. 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 09/05/2012 Goiter 09/05/2012 Iron deficiency anemia 09/05/2012 PAST SURGICAL HISTORY Procedure Laterality Date DELIVERY ONLY 08-26-11 , low transverse ALLERGIES Latex and Penicillins MEDICATIONS furosemide (LASIX) 40 mg tablet^^Disp: ^Rfl: empagliflozin (JARDIANCE) 10 mg tablet^Take by mouth.^Disp: ^Rfl: blood sugar diagnostic (BLOOD GLUCOSE TEST) test strip^Patient checks sugars twice daily DX E11.65^Disp: 100 Strip^Rfl: 2 Lancets lancets^Patient checks sugars twice daily DX E11.65^Disp: 100 Each^Rfl: 2 Blood-Glucose Meter^1 Units once daily.^Disp: 1 Each^Rfl: 0 carvedilol (COREG) 12.5 mg tablet^^Disp: ^Rfl: lisinopril (ZESTRIL) 20 mg tablet^^Disp: ^Rfl: dulaglutide (TRULICITY) 1.5 mg/0.5 mL pen injector^Inject 1.5 mg subcutaneously one time a week.^Disp: 2 mL^Rfl: 2 insulin glargine 100 unit/mL (3 mL)^Inject 60 Units subcutaneously daily at bedtime.^Disp: 18 mL^Rfl: 5 (Patient not taking: Reported on 01/12/2024) FAMILY HISTORY Problem Relation Age of Onset None Father a.unknown medical problem Stroke Mother a. hypertension, stroke, DM, renal failure None Brother one brother and 3 sisters a. [place] Social History Tobacco Use Smoking status: Never Substance Use Topics Alcohol use: Yes Comment: social Drug use: Never Review of Systems Constitutional: Negative for appetite change, chills, fatigue, fever and unexpected weight change. HENT: Negative for congestion, ear pain, rhinorrhea and sore throat. Eyes: Negative for pain, discharge, itching and visual disturbance. Respiratory: Negative for cough, shortness of breath and wheezing. Cardiovascular: Negative for chest pain, palpitations and leg swelling. Gastrointestinal: Negative for abdominal pain, constipation, diarrhea, nausea and vomiting. Genitourinary: Negative for difficulty urinating. Musculoskeletal: Positive for arthralgias. Skin: Negative for rash. Neurological: Negative for dizziness, tremors, weakness and headaches. Psychiatric/Behavioral: Negative for dysphoric mood and sleep disturbance. The patient is not nervous/anxious. Objective BP 140/68 Pulse 74 Temp 97.6 Ht 5' 3 (1.60m) Wt 185 lb (83.9kg) SpO2 99% BMI 32.78 kg/(m^2). Physical Exam HENT: Head: Normocephalic and atraumatic. Eyes: Conjunctiva/sclera: Conjunctivae normal. Pupils: Pupils are equal, round, and reactive to light. Cardiovascular: Rate and Rhythm: Normal rate and regular rhythm. Pulses: Normal pulses. Heart sounds: Normal heart sounds. Pulmonary: Effort: Pulmonary effort is normal. Breath sounds: Normal breath sounds. Musculoskeletal: Cervical back: Normal range of motion and neck supple. Lymphadenopathy: Cervical: No cervical adenopathy. Skin: General: Skin is warm and dry. Neurological: General: No focal deficit present. Mental Status: She is alert and oriented to person, place, and time. Cranial Nerves: No cranial nerve deficit. Sensory: Sensation is intact. Motor: Motor function is intact. Coordination: Coordination is intact. Psychiatric: Attention and Perception: Attention and perception normal. Mood and Affect: Mood and affect normal. Mood is not anxious or depressed. Affect is not labile or inappropriate. Speech: Speech normal. Behavior: Behavior normal. Behavior is not agitated. Thought Content: Thought content normal. Thought content does not include suicidal ideation. Cognition and Memory: Cognition normal. Judgment: Judgment normal. Judgment is not impulsive. 12/29/2023 3:58 PM - MRI liver Impression IMPRESSION: There is no abnormality identified within the liver. The lesion identified on prior CT and ultrasound could've represented an area of focal fatty infiltration which has resolved. Pharmacovigilance Safety Expert: HODA Transcribe Date/Time: Dec 29 2023 3:43P Dictated by : REED BOBO MD This examination was interpreted and the report reviewed and electronically signed by: REED BOBO MD on Dec 29 2023 3:56PM EST Results-Findings * * *Final Report* * * DATE OF EXAM: Dec 29 2023 9:17AM LDM [id number] - MRI LIVER WO/W IVCON / PROCEDURE REASON: Liver lesion * * * * Physician Interpretation * * * * TITLE: MRI OF THE LIVER WITH IV CONTRAST DATE: December 29, 2023 INDICATION: Liver lesion COMPARISON: CT abdomen and pelvis October 06, 2023. Right upper quadrant ultrasound September 15, 2023 TECHNIQUE: A series of T1, T2 and diffusion-weighted sequences through the abdomen were performed both prior to and after the administration of 20 mL of Dotarem IV contrast. FINDINGS: Limitations: None Liver: No fatty liver infiltration. No hepatic mass identified. Gallbladder and biliary tree: Gallbladder is unremarkable. There is no intra or extrahepatic biliary dilatation. Adrenal glands: No adrenal mass. Spleen: No splenomegaly or splenic mass. Pancreas: No pancreatic duct dilatation or evidence of a pancreatic mass. Kidneys: No hydronephrosis or renal mass. Aorta and vasculature: The abdominal aorta is normal caliber and widely patent. Celiac trunk and superior mesenteric arteries are widely patent. The splenic, superior mesenteric and portal veins are patent. The hepatic veins are patent. Lymph nodes: No enlarged abdominal lymph nodes. GI:Included loops of bowel are unremarkable. Mesentery and peritoneum:No ascites. No peritoneal mass. Other findings: Bones and soft tissues are unremarkable. Lower thorax: Lung bases are unremarkable. Component Latest Ref Rng & Units 12/27/2023 Protein, Total 6.3 - 8.0 g/dL 7.3 Albumin 3.9 - 4.9 g/dL 4.0 Calcium 8.5 - 10.2 mg/dL 9.2 Bilirubin, Total 0.2 - 1.3 mg/dL 0.2 Alkaline Phosphatase 34 - 123 U/L 84 AST 13 - 35 U/L 17 ALT 7 - 38 U/L 16 Glucose 74 - 99 mg/dL 166 (H) BUN 7 - 21 mg/dL 13 Creatinine 0.58 - 0.96 mg/dL 0.86 Sodium 136 - 144 mmol/L 135 (L) Potassium 3.7 - 5.1 mmol/L 4.1 Chloride 97 - 105 mmol/L 103 CO2 22 - 30 mmol/L 22 Anion Gap 9 - 18 mmol/L 10 eGFR >=60 mL/min/1.73m 87 Phosphorus 2.7 - 4.8 mg/dL 3.7 Magnesium 1.7 - 2.3 mg/dL 1.9 Component Latest Ref Rng & Units 02/19/2023 Cholesterol, Total <200 mg/dL 186 Triglyceride <150 mg/dL 106 HDL Cholesterol >39 mg/dL 53 Non HDL Cholesterol <130 mg/dL 133 (H) Fasting Time hrs 12 VLDL Cholesterol <30 mg/dL 21 TC:HDL Ratio <5.10 3.51 LDL Cholesterol <100 mg/dL 112 (H) LDL:HDL Ratio <2.54 2.11 Component Latest Ref Rng & Units 01/27/2023 08/20/2023 01/12/2024 Hemoglobin A1C 4 - 6 % 10 (A) Hemoglobin A1C (POCT) 4.3 - 5.6 % 10.7 (A) 9.4 (A) ASSESSMENT/PLAN: 1. Type 2 diabetes mellitus without complication, without long-term current use of insulin (HCC) - ICD9: 250.00, ICD10: E11.9 (primary diagnosis) - Uncontrolled - Increase dulaglutide (Tralexi) to 1.5 mg weekly Will call in 1 month and increase dose if she's tolerating well Failed metformin, glimepiride in the past On Jardiance 10 mg daily for cardiomyopathy - Statin prescribed - No, patient declined - Blood glucose monitoring on a once daily schedule - Counseled on healthy diet and regular exercise - Follow up in 3 months, sooner should any other issues arise. - HEMOGLOBIN A1C (POC) - DULAGLUTIDE 1.5 MG/0.5 ML SUBCUTANEOUS PEN INJECTOR 2. Encounter for screening mammogram for breast cancer - ICD9: V76.12, ICD10: Z12.31 - Set up for mammogram, yearly mammogram recommended - [facility] SCREENING 3. Chronic right shoulder pain - ICD9: 719.41, 338.29, ICD10: M25.511, G89.29 Referral placed for PT Had a course of meloxicam - no change X-ray was normal January 2023 - CONSULT TO PHYSICAL THERAPY 4. Fatty liver - ICD9: 571.8, ICD10: K76.0 Low fat diet, avoid NSAIDs Garry Rodriguez APRN.[place] documented in this [facility] Miscellaneous Notes* Telephone Encounter - Candis Nena - 01/10/2024 8:13 AM EST The patient has been scheduled on 01/12/24 at 10:20 am. documented in this encounterW[facility]11-09-2023 Miscellaneous Notes* Telephone Encounter - Pilar Wallace MA - 10/07/2023 10:13 AM EST Patient informed of results, recommendations and additional imaging order. Patient states she has an appointment with a senior contracts administrator in [place] at the end of the month and will call back with the name so results can be forwarded. Reminder placed for recheck. Pilar Wallace MA * Telephone Encounter - Garry Rodriguez APRN.CNP - 10/06/2023 5:[address] abdomen is showing a 1.6 cm lesion in the liver, radiologist recommends MRI liver see orders. She has large uterine fibroids and a cyst in right ovary - can cause pelvic pain, heavy bleeding, bloating. I want her to see ERGONOMIST - does she already have one or does she need a referral? There was also a very small lung nodule - needs CT chest in 1 year, please add a reminder. Garry Rodriguez APRN.[place] documented in this encounterW[facility]11-08-2023 History of Present illness Narrative* Reef Josie Mcdonald RT(R) - 10/06/2023 10:20 AM EST Radiology Service Progress Note DATE OF SERVICE: October 06, 2023 TIME: 4:17 PM PATIENT IDENTITY VERIFICATION COMPLETED USING TWO (2) STANDARD IDENTIFIERS: Name and Date of confirmed by patient verbally. FALL SCREENING: Has the patient had 2 falls in the last year or 1 fall with injury or currently using an Ambulatory Assistive Device (Walker, Cane, Wheelchair, Crutches, etc.)? No PATIENT GENDER DATA: Female. status: : No status: NO. PATIENT RELEVANT IMPLANT DATA REVIEWED: Yes ALLERGIES: Reviewed and unchanged CONTRAST ALLERGY: NO. EXAM: CT -CONTRAST INDUCED NEPHROPATHY RISK FACTORS: Not applicable CREATININE: Creatinine Date Value Ref Range Status 09/07/2023 0.85 0.58 - 0.96 mg/dL Final 02/19/2023 0.70 0.58 - 0.96 mg/dL Final 09/06/2012 0.69 (L) 0.70 - 1.40 mg/dL Final Estimated Glomerular Filtration Rate Date Value Ref Range Status 09/07/2023 88 >=60 mL/min/1.73m Final Comment: Estimated Glomerular Filtration Rate (eGFR) is calculated using the 2020 CKD-EPI creatinine equation. This equation utilizes serum creatinine, sex, and age as parameters. The creatinine assay has traceable calibration to isotope dilution- mass spectrometry. Refer to KDIGO guidelines for clinical interpretation. In patients with unstable renal function, e.g. those with acute kidney injury, the eGFRmay not accurately reflect actual GFR. eGFR- Date Value Ref Range Status 09/06/2012 >60 Final P.O.C.T. RESULTS: POC done: Yes, See Lab Tab October 06, 2023 TREATMENT: N/A PERIPHERAL IV DATA: Ambulatory: A peripheral IV was started in the Left antecubital site with a Angio cath: 22 gauge. RADIOLOGY DEPARTMENT: CT; Exam(s) Completed: Abdomen/Pelvis SIGNATURE: RT Jaquan(R) PATIENT NAME: Patt Crane DATE: October 06, 2023 TIME: 4:17 PM documented in this encounterW[facility]10-19-2023 Miscellaneous Notes* Telephone Encounter - Pilar Wallace MA - 09/16/2023 3:03 PM EDT Patient informed of all information. Pilar Wallace MA * Telephone Encounter - Pilar Wallace MA - 09/16/2023 11:50 AM EDT Left message requesting patient call office back. Pilar Wallace MA * Telephone Encounter - Garry Rodriguez APRN.CNP - 09/16/2023 10:58 AM EDT Please notify patient there was a lesion detected near her gallbladder and a very small amount of fluid collection in the right side of her abdomen. I would like to get a CT scan to evaluate this further. The lesion does appear to be benign (not cancerous) but I want a better look at things to determine cause of fluid collection. Please have patient schedule CT scan and a follow-up appt with me following the scan. Garry Rodriguez APRN.[place] * Telephone Encounter - Pilar Wallace MA - 09/16/2023 10:46 AM EDT Patient left message stating she received a message from [facility] regarding following up with her pcp regarding her recent imaging results and an actionable finding. Please advise. Pilar Wallace MA documented in this encounterW[facility]10-18-2023 History of Present illness Narrative* Gardenia Yeboah RT(R) - 09/15/2023 8:30 AM EDT Radiology Service Progress Note PATIENT NAME: Patt Crane DATE OF SERVICE: September 15, 2023 TIME: 9:00 AM PATIENT IDENTITY VERIFICATION COMPLETED USING TWO (2) IDENTIFIERS: Name and Date of confirmedby patient verbally. FALL SCREENING: Has the patient had 2 falls in the last year or 1 fall with injury or currently using an Ambulatory Assistive Device (Walker, Cane, Wheelchair, Crutches, etc.)? No PATIENT GENDER DATA: Female. status: : No status: N/A PATIENT RELEVANT IMPLANT DATA REVIEWED: Not Applicable RADIOLOGY DEPARTMENT: Ultrasound PERIPHERAL IV DATA: Not applicable SIGNED BY: Gardenia Yeboah Rdms September 15, 2023 9:00 AM documented in this encounterWv[facility]10-13-2023 Miscellaneous Notes* Telephone Encounter - Akshat Quesada MA - 09/10/2023 10:48 AM EDT Pt aware. Reminder placed. Akshat Quesada MA * Telephone Encounter - Akshat Quesada MA - 09/10/2023 8:27 AM EDT ----- Message from Garry Rodriguez APRN.ECONOMIC DEVELOPMENT COORDINATOR sent at 09/09/2023 10:58 PM EDT ----- Mildly elevated liver function, recheck in 3 months. Other labs WNL. Garry Rodriguez APRN.ECONOMIC DEVELOPMENT COORDINATOR documented in this encounterW[facility]10-11-2023 Miscellaneous Notes* Telephone Encounter - Iwona Gee LPN - 09/08/2023 1:13 PM EDT Spoke with patient about test results and recommendation to repeat bloodwork in 1 month for reassessment. Patient verbalizes understanding and is agreeable. Iwona Gee LPN * Telephone Encounter - Tone Espino MD - 09/08/2023 1:03 PM EDT Can you please let Ms. Crane know that her bloodwork revealed normal electrolytes and kidney function. Her LFTs revealed borderline elevated ALT level. Can we have her repeat bloodwork in 1 month for reassessment? Thanks, Tone Espino MD documented in this encounterW[facility]09-14-2023 Discharge summary Author Aj Colon [facility] August 12, 2023 3:58pm Note Date/Time August 12, 2023 3:57pm [facility] Medical Records Department [address] [place] [address] Discharge Summary 08/12/23 1549 MR#: [id number] Acct: [id number] Name: PATT CRANE Rep #:[id number] : 1980 43 From: Aj mina MD PCP: ODALYS Iraheta Status:ADM IN Location: [facility] [id number] Providers Date of Admission: 08/11/23 Primary Care Physician: ODALYS Iraheta Consultations 08/11/23 21:22 Consult: Cardiology Routine Consulting Provider: Damian Blanco Reason for Consult: Chest Pain EMERGENT Consult: No MD Notified: Yes Date Notified: 08/11/23 Time Notified: 20:03 Method of Notification: Verbal Reason For Visit: NON-STEMI Diagnosis Discharge Diagnosis (1) Non-STEMI (non-ST elevated myocardial infarction): Status: Acute Code(s): I21.4 - Non-ST elevation (NSTEMI) myocardial infarction (2) HTN (hypertension): Status: Chronic Code(s): I10 - Essential (primary) hypertension (3) Peripartum cardiomyopathy, antepartum condition or complication: Status: Acute Code(s): O90.3 - Peripartum cardiomyopathy Medications at Discharge Home Medications dulaglutide 0.75 mg/0.5 mL subcutaneous pen injector (Trulicity) 0.75 mg subcut QWEEK 08/11/23 carvedilol 6.25 mg tablet (Coreg) 6.25 mg PO BID #60 tabs 08/12/23 empagliflozin 10 mg tablet (Jardiance) 10 mg PO DAILY 30 days #30 tabs 08/12/23 lisinopril 10 mg tablet 10 mg PO DAILY 30 days #30 tabs 08/12/23 Hospital Course Operations None Procedures Cardiac catheterization Summary of Care Provided Minutes Spent on Discharge: 37 Hospital Course: Per HPI: PATT CRANE, is a 43 F with a significant history of hypertension; diabetes mellitus and TIA who presents to the emergency department with 3-day history of progressively worsening lightheadedness. Associated with her symptoms is nausea and dyspnea with exertion. Also patient reports epigastric fullness. She denies any oj chest pain. She was prescribed 2 blood pressure medicines about a week ago; and began takingthese 2 meds 2 days before presentation ago. On the presentation her blood pressure at home was 148/112. Of note patient she reports a history of heart disease; and TIA that started about 3 months after she had her baby. She is unable to elaborate the exact heart disease that she had. Her mother from cardiac arrest at the age of 59. Also her mother had CVA. Hospital Course: 1. Chest pain with cardiomyopathy?43-year-old female who developed cardiac issues after the of her son 11 years ago presents to the hospital with chest pain lightheadedness as well as some increased shortness of breath. She was taken for cardiac catheterization by cardiology today who documented normal coronary arteries but an EF of 20%. Medications were adjusted, her Coregwas increased from 3.125- 6.25 and her lisinopril was increased from 5 mg to 10 mg. She was also started on Jardiance 10 mg daily and cardiology requested thatshe follow-up in 1 month for further work-up. I discussed with her the plan fordischarge and she expressed understanding of the risk benefits going home and would like to go home today. Physical Exam Narrative General: Alert, Oriented x3, Cooperative, No apparent distress HEENT: Atraumatic, PERRLA, EOMI, Normocephalic Oral: Moist Mucosa Neck: Supple, No JVD Lungs: Clear to auscultation, Normal air movement, No rhonchi, No wheeze, No rales Cardiovascular: Regular rate, Regular Rhythm, Normal S1, Normal S2, No murmurs Abdomen: Soft, Non Tender, Non-Distended, No Hepato-splenomegaly Extremities: No edema, Capillary Refill Less than 3 Seconds Skin: No rashes, No breakdown Musculoskeletal: No Tenderness to Palpation of Joints or Extremities Neurological: Cranial nerves II-XII grossly intact, Motor Exam 5/5 strength throughout, Sensory exam intact to light touch and pain Psych/Mental Status: Normal Affect, Appropriate Weight / BMI Weight Weight: 205 lb Body Mass Index (BMI) 36.3 ABG / Lab / Microbiology Data 08/12/23 07:20 08/12/23 07:20 Laboratory: Laboratory Results - last 24 hr 08/11/23 18:01: PT 14.1, INR 1.1, APTT 24.6 08/11/23 18:04: WBC 5.4, RBC 4.41, Hgb 11.8 L, Hct 37.8, MCV 85.7, MCH 26.8 L, MCHC 31.2 L, RDW Std Deviation 45.6 H, RDW Coeff of Chad 14.6, Plt Count 311, MPV10.1, Immature Gran % (Auto) 0.400, Neut % (Auto) 63.5, Lymph % (Auto) 26.6, [place] % (Auto) 7.6, Eos % (Auto) 1.3, Baso % (Auto) 0.6, Absolute Neuts (auto) 3.4, Absolute Lymphs (auto) 1.43, Nucleated RBC % 0, D-Dimer Quant (PE/DVT) 0.72H*, Sodium 135 L, Potassium 3.3 L, Chloride 106, Carbon Dioxide 25.0, Anion Gap 4 L, BUN 9, Creatinine 1.13 H, Estim Creat Clear Calc 53.65, Est GFR (MDRD) Af Amer 68, Est GFR (MDRD) Non-Af 56 L, BUN/Creatinine Ratio 8.0 L, Glucose 280 H, Calcium 9.0, Total Bilirubin 0.60, AST 60 H, ALT 105 H, Alkaline Phosphatase 91,Troponin I High Sens 1494 H*, Total Protein 6.8, Albumin 3.2, Globulin 3.6, Albumin/Globulin Ratio 0.9, Serum , Qual NEGATIVE 08/11/23 19:25: Urine Color Yellow, Urine Clarity Clear, Urine pH 6.0, Ur Specific [place] 1.015, Urine Protein 30 H, Urine Glucose (UA) 250 H, Urine Ketones 5 H, Urine Occult Blood Negative, Urine Nitrite Negative, Urine Bilirubin Negative, Urine Urobilinogen Normal, Ur Leukocyte Esterase Negative, Urine RBC 0 SEEN, Urine WBC 0 SEEN, Ur Squamous Epith Cells 0 SEEN, Urine Bacteria 0 SEEN, Urine Mucus 0 SEEN 08/11/23 22:00: Troponin I High Sens 2092 H* 08/11/23 22:03: POC Glucose 242 H 08/12/23 00:05: Troponin I High Sens 2114 H* 08/12/23 01:45: APTT 67.5 H 08/12/23 06:21: POC Glucose 294 H 08/12/23 07:20: WBC 6.7, RBC 4.30, Hgb 11.4 L, Hct 36.4 L, MCV 84.7, MCH 26.5 L,MCHC 31.3 L, RDW Std Deviation 44.0 H, RDW Coeff of Chad 14.5, Plt Count 278, MPV9.9, APTT 46.2 H, Sodium 137, Potassium 3.9, Chloride 108 H, Carbon Dioxide 24.0, Anion Gap 5, BUN 7, Creatinine 0.91, Estim Creat Clear Calc 66.62, Est GFR(MDRD) Af Amer 87, Est GFR (MDRD) Non-Af 72, BUN/Creatinine Ratio 7.7 L, [id number] H, Calcium 8.3 L, Triglycerides 99, Cholesterol 115, LDL Cholesterol 47, VLDL Cholesterol 20, HDL Cholesterol 48 08/12/23 12:36: POC Glucose 287 H Radiography Diagnostic Testing: Radiology Impression Chest X-Ray 08/11/23 18:20 IMPRESSION: No acute cardiopulmonary pathology Electronically Signed: Mateus Reynolds MD at 18:31 EDT Reading Location ID and State: [facility] / ID Tel [phone], Service support , Chest CTA 08/11/23 18:45 IMPRESSION: Cardiomegaly and minor atelectasis within the dependent portion of the lungs with tiny right pleural effusion. No evidence for pulmonary embolus Electronically Signed: Mateus Reynolds MD at 19:27 EDT , D/C Instructions Discharge Diet: Low fat / Low cholesterol and Carb Control Diet Call your doctor if you observe: Fever of 101 or Higher, Shortness of breath, Dizziness, Fainting spells, Swelling in the ankles, Chest pain and Increased palpitations (irregular heartbeat) Meaningful Use Info Meaningful Use Diagnoses (Choose all that apply): None applicable Discharge Plan Admission Admit Date/Time: 08/11/23 19:59 Attending Provider: Aj Colon Primary Care Provider: Garry Rodriguez NP Consulting Providers: Damian Blanco; Ha Echevarria Discharge Orders/Prescriptions Prescriptions: New lisinopril 10 mg Tablet 10 mg PO DAILY 30 Days Qty: 30 0RF Jardiance 10 mg Tablet 10 mg PO DAILY 30 Days Qty: 30 0RF carvedilol [Coreg] 6.25 mg tablet 6.25 mg PO BID Qty: 60 0RF Rx Instructions: must administer with a meal/food Continued Trulicity 0.75 mg/0.5 mL pen injector 0.75 mg subcut QWEEK Discontinued lisinopril 5 mg tablet 5 mg PO DAILY carvedilol 3.125 mg tablet 3.125 mg PO BID Rx Instructions: must administer with a meal/food Referrals / Follow Up: Damian Blanco MD [Med Staff - Active Staff] - 09/09/23 3:35 pm NOT,DEFINED [Non-Staff] - Garry Rodriguez NP, CARD SCRAPER-C [Primary Care Provider] - Within 1 Week Disposition Disposition (needs filled in before D/C Order can be placed): Home, Self Care Charges/Coding Visit Charges Inpatient E&M: 25135 Disch Hosp >30min 08/12/23 1558 <Electronically signed by Aj Colon MD> Cosigner Signature (if applicable): CC: ODALYS Rodriguez; Dr. Aj Colon MD~ Signed [facility] Work Phone: 1(299) 137-444409-14-2023 Discharge summary Author Aj Colon [facility] August 12, 2023 3:49pm Note Date/Time August 12, 2023 3:49pm [facility] Medical Records Department [address] [place] [id number] Instructions for Home/Discharge Instructions 08/12/23 1546 MR#: [id number] Acct: [id number] Name: PATT CRANE Rep #:[id number] : 1980 43 From: Aj mina MD PCP: ODALYS Iraheta Status:ADM IN Discharge Instructions Diet Discharge Diet: Low fat / Low cholesterol and Carb Control Diet Activity Discharge Activity: Return to Normal Activity Dressing / Incision Call your doctor if you observe: Fever of 101 or Higher, Shortness of breath, Dizziness, Fainting spells, Swelling in the ankles, Chest pain and Increased palpitations (irregular heartbeat) Follow Up Care Test Results: Test results from this visit will be discussed in further detail at your follow- up appointment, if applicable. Discharge Plan Admission Admit Date/Time: 08/11/23 19:59 Attending Provider: Aj Colon Primary Care Provider: Garry Rodriguez NP Consulting Providers: Damian Blanco; Ha Echevarria Discharge Orders/Prescriptions Prescriptions: New lisinopril 10 mg Tablet 10 mg PO DAILY 30 Days Qty: 30 0RF Jardiance 10 mg Tablet 10 mg PO DAILY 30 Days Qty: 30 0RF carvedilol [Coreg] 6.25 mg tablet 6.25 mg PO BID Qty: 60 0RF Rx Instructions: must administer with a meal/food Continued Trulicity 0.75 mg/0.5 mL pen injector 0.75 mg subcut QWEEK Discontinued lisinopril 5 mg tablet 5 mg PO DAILY carvedilol 3.125 mg tablet 3.125 mg PO BID Rx Instructions: must administer with a meal/food Referrals / Follow Up: Damian Blanco MD [Med Staff - Active Staff] - 09/09/23 3:35 pm NOT,DEFINED [Non-Staff] - Garry Rodriguez NP, GRANT-C [Primary Care Provider] - Within 1 Week Disposition Disposition (needs filled in before D/C Order can be placed): Home, Self Care 08/12/23 1549<Electronically signed by Aj Colon MD>Aj Colon MD CC: GEOC Garry Rodriguez; Dr. Damian Blanoc MD; Dr. Ha Echevarria MD ~ Signed [facility] Work Phone: 1(340) 545-308009-14-2023 Evaluation note* Diagnosis Onset Date Resolution Status Elevated d-dimer acute Hypokalemia acute Lightheadedness acute Non-STEMI (non-ST elevated m yocardial infarction) August 12, 2023 acute Peripartum cardiomyopathy, a ntepartum condition or complication acute HTN (hypertension) [facility] Work Phone: [phone]) 188-875609-14-2023 Evaluation note* Diagnosis Onset Date Resolution Status Elevated d-dimer acute Hypokalemia acute Lightheadedness acute Non-STEMI (non-ST elevated m yocardial infarction) August 12, 2023 acute Peripartum cardiomyopathy, a ntepartum condition or complication acute HTN (hypertension) chronic Idiopathic cardiomyopathy August 12, 2023 acute Peripartum cardiomyopathy, a ntepartum condition or complication acute HTN (hypertension) [facility] Work Phone: 1(256) 885-273709-14-2023 Consult note Author Damian Blanco [facility] August 12, 2023 8:41am Note Date/Time August 12, 2023 7:20am [facility] Medical Records Department [address] [place] [id number] Consultation - Cardiology 08/12/23 0715 MR#: [id number] Acct: [id number] Name: PATT CRANE Rep #:[id number] : 1980 43 From: Damian Blanco MD PCP: Garry Rodriguez CARD SCRAPER-C Status:ADM IN Location: [place] [id number] Assessment & Plan Assessment/Plan (1) Non-STEMI (non-ST elevated myocardial infarction): PLAN: She presents with epigastric discomfort and cardiac enzyme abnormality. Isuspect that the above is likely due to demand ischemia from her markedly elevated blood pressure. My recommendation is to definitively exclude coronary disease with a left heart catheterization and then treated aggressively with risk factor modification. Addendum: Left main coronary artery is noted to be normal. Left anterior descending artery with no significant disease. Left circumflex artery nondominant is normal. Right coronary artery dominant with no significant stenosis. Left ventriculogram demonstrated severe left ventricular systolic dysfunction estimated ejection fraction of 20% confirming cardiomyopathy. (2) HTN (hypertension): PLAN: Her blood pressure does not appear to be very well controlled. My recommendation will be to increase her carvedilol to 6.25 mg twice a day and continue the lisinopril and titrate upwards as appropriate. An echocardiogram should be performed to assess her ventricular function. (3) Peripartum cardiomyopathy, antepartum condition or complication: PLAN: From her history it appears that she may have had peripartum cardiomyopathy. She was put on a control pill but she is currently not taking it. She remains sexually active. I will like us to obtain an echocardiogram to assess her ventricular function. She may need to be referred to [facility] for further evaluation and advice. In the meantime she will remain on the beta-magnolia as well as МАРИНА inhibitor and for us to consider an SGLT2 inhibitor. Thank you for allowing me to participate in the care of your patient. Please don't hesitate to call if any issues arise. HPI Consult Data Date of Consult: 08/12/23 HPI Narrative HPI Narrative: PATT CRANE, is a 43 F who presents to the emergency room with mild dizziness aswell as epigastric discomfort. She says that this has been going on for approximately 3 days or so. She had been on medication and felt very fatigued. Interestingly enough she says that approximate 11 years ago after she had a babyshe may have been diagnosed with a cardiac condition called a cardiomyopathy. She was placed on medication she cannot remember exactly what tests were done. She denies any oj syncope she does not have any exertional chest discomfort. She has been compliant with her medications. On presentation to the emergency room she was noted to be in sinus rhythm with a right bundle branch block. Cardiac enzymes were noted to be abnormal and cardiology was called for further evaluation and management. She is currently pain-free. Her blood pressure was also noted to be elevated on admission. [facility] Medical History (Updated 08/12/23 @ 07:[address] Damian Blanco MD) delivery delivered Diabetes HTN (hypertension) TIA (transient ischemic attack) Home Medications carvedilol 3.125 mg tablet 3.125 mg PO BID 08/11/23 [History Last Taken Unknown] dulaglutide 0.75 mg/0.5 mL subcutaneous pen injector ([facility]) 0.75 mg subcut QWEEK 08/11/23 [History Last Taken Unknown] lisinopril 5 mg tablet 5 mg PO DAILY 08/11/23 [History Last Taken Unknown] Allergy/AdvReac Type Severity Reaction Status Date / Time latex AdvReac Mild RASH Verified 08/11/23 16:44 Penicillins AdvReac UNKNOWN Verified 08/11/23 16:44 Family History Mother Diabetes Hypertension Father Diabetes Hypertension Surgical History Previous section Social History household members: significant other and children housing: house Smoking Status: Never smoker ROS Constitutional Constitutional: Denies fever(s) or weight loss Eyes Eyes: Reports systems reviewed and no addt'l complaints, except as documented ENT HEENT: Reports systems reviewed and no addt'l complaints, except as documented Cardiovascular Cardiovascular: Reports chest pain at rest; Denies chest pain with activity, dyspnea at rest, dyspnea on exertion, edema, palpitations or paroxysmal nocturnal dyspnea Respiratory/Chest Respiratory/Chest: Denies dyspnea on exertion, productive cough, shortness of breath at rest or shortness of breath with exertion Gastrointestinal Gastrointestinal: Denies change in bowel habits, nausea, vomiting or weight changes Genitourinary Genitourinary: Denies difficulty urinating Musculoskeletal Musculoskeletal: Denies joint stiffness or muscle weakness Integumentary Integumentary: Denies lesions Neurologic Neurologic: Reports dizziness; Denies syncope Psychiatric Psychiatric: Denies anxiety Endocrine Endocrinology: Denies excessive sweating or fatigue Hematologic/Lymphatic Hematologic/Lymphatic: Denies anemia Allergic/Immunologic Allergic/Immunologic: Denies seasonal rhinorrhea Physical Exam Const alert, oriented x3 and no apparent distress General Appearance: cooperative HEENT hearing grossly normal bilaterally Head and Scalp: atraumatic Eyes EOMs intact bilaterally Neck General: normal visual inspection Chest inspection of chest normal Resp normal respiratory effort Auscultation: clear to auscultation bilaterally Cardio regular rate, regular rhythm, S1 normal heart sound and S2 normal heart sound Jugular Venous Distention: JVD Heart Sounds: gallop S3 gallop GI normal to inspection, nondistended, normoactive bowel sounds Extremity normal capillary refill and no pedal edema Peripheral Pulses: Yes pulses 2+ throughout and femoral pulses present Skin no rashes or lesions noted Neuro oriented x3 and CN's II-XII intact bilaterally Psych Appearance: grossly normal and appropriate Risk Stratification Risk Stratification Applicable: Yes Age >/= 65: No >/= 3 CAD Risk Factors (HTN, HLD, DM, family hx of CAD, or current smoker): Yes Aspirin Use in the Past 7 Days: No Severe Angina (>/= episodes in 24 hours): No EKG ST Changes >/= 0.5mm: No Positive Cardiac Marker: Yes KIMANI Risk Stratification Score: 2 KIMANI % Risk: 8% Risk Objective Data Vital Signs: Vital Signs Temp Pulse Resp BP Pulse Ox O2 Del Method 97.0 F L 96 16 133/84 H 98 Room Air 08/12/23 06:17 08/12/23 06:17 08/12/23 06:17 08/12/23 06:17 08/12/23 06:17 08/12/23 06:17 Oxygen Delivery Method Room Air Weight: 205 lb Body Mass Index (BMI) 36.3 Intake & Output: Intake and Output for Last 24 Hours 08/10/23 08/11/23 08/12/23 23:59 23:59 23:59 Intake Total 1000.23 / 1240.23 381.66 / 381.66 Balance 1000.23 / 1240.23 381.66 / 381.66 Lab / Micro Data 08/12/23 07:20 08/12/23 07:20 Labs: Laboratory Results - last 24 hr 08/11/23 18:01: PT 14.1, INR 1.1, APTT 24.6 08/11/23 18:04: WBC 5.4, RBC 4.41, Hgb 11.8 L, Hct 37.8, MCV 85.7, MCH 26.8 L, MCHC 31.2 L, RDW Std Deviation 45.6 H, RDW Coeff of Chad 14.6, Plt Count 311, MPV10.1, Immature Gran % (Auto) 0.400, Neut % (Auto) 63.5, Lymph % (Auto) 26.6, [place] % (Auto) 7.6, Eos % (Auto) 1.3, Baso % (Auto) 0.6, Absolute Neuts (auto) 3.4, Absolute Lymphs (auto) 1.43, Nucleated RBC % 0, D-Dimer Quant (PE/DVT) 0.72H*, Sodium 135 L, Potassium 3.3 L, Chloride 106, Carbon Dioxide 25.0, Anion Gap 4 L, BUN 9, Creatinine 1.13 H, Estim Creat Clear Calc 53.65, Est GFR (MDRD) Af Amer 68, Est GFR (MDRD) Non-Af 56 L, BUN/Creatinine Ratio 8.0 L, Glucose 280 H, Calcium 9.0, Total Bilirubin 0.60, AST 60 H, ALT 105 H, Alkaline Phosphatase 91,Troponin I High Sens 1494 H*, Total Protein 6.8, Albumin 3.2, Globulin 3.6, Albumin/Globulin Ratio 0.9, Serum , Qual NEGATIVE 08/11/23 19:25: Urine Color Yellow, Urine Clarity Clear, Urine pH 6.0, Ur Specific [place] 1.015, Urine Protein 30 H, Urine Glucose (UA) 250 H, Urine Ketones 5 H, Urine Occult Blood Negative, Urine Nitrite Negative, Urine Bilirubin Negative, Urine Urobilinogen Normal, Ur Leukocyte Esterase Negative, Urine RBC 0 SEEN, Urine WBC 0 SEEN, Ur Squamous Epith Cells 0 SEEN, Urine Bacteria 0 SEEN, Urine Mucus 0 SEEN 08/11/23 22:00: Troponin I High Sens 2093 H* 08/11/23 22:03: POC Glucose 242 H 08/12/23 00:05: Troponin I High Sens 2114 H* 08/12/23 01:45: APTT 67.5 H 08/12/23 06:21: POC Glucose 294 H Cardiology Labs/Tests 08/11/23 18:01: PT 14.1, INR 1.1, APTT 24.6 08/11/23 18:04: WBC 5.4, RBC 4.41, Hgb 11.8 L, Hct 37.8, MCV 85.7, MCH 26.8 L, MCHC 31.2 L, Plt Count 311, MPV 10.1, Immature Gran % (Auto) 0.400, Neut % (Auto) 63.5, Lymph % (Auto) 26.6, [place] % (Auto) 7.6, Eos % (Auto) 1.3, Baso % (Auto) 0.6, Absolute Neuts (auto) 3.4, Nucleated RBC % 0, D-Dimer Quant (PE/DVT)0.72 H*, Sodium 135 L, Potassium 3.3 L, Chloride 106, Carbon Dioxide 25.0, AnionGap 4 L, BUN 9, Creatinine 1.13 H, Est GFR (MDRD) Af Amer 68, Est GFR (MDRD) Non-Af 56 L, BUN/Creatinine Ratio 8.0 L, Glucose 280 H, Calcium 9.0, Total Bilirubin 0.60 08/11/23 19:25: Urine Color Yellow, Urine Clarity Clear, Urine pH 6.0, Ur Specific [place] 1.015, Urine Protein 30 H, Urine Glucose (UA) 250 H, Urine Ketones 5 H, Urine Occult Blood Negative, Urine Nitrite Negative, Urine Bilirubin Negative, Urine Urobilinogen Normal, Ur Leukocyte Esterase Negative, Urine RBC 0 SEEN, Urine WBC 0 SEEN 08/12/23 01:45: APTT 67.5 H Rhythm: EKG: ECHO: Stress Test: Cardiac Cath: PCI: CT Surgery: Holter monitor: EPS: PPM: CXR: Chest CT Scan: Radiography Diagnostic Testing: Radiology Impression Chest X-Ray 08/11/23 18:20 IMPRESSION: No acute cardiopulmonary pathology Electronically Signed: Mateus Reynolds MD at 18:31 EDT Reading Location ID and State: [facility] / ID Tel [phone], Service support , Chest CTA 08/11/23 18:45 IMPRESSION: Cardiomegaly and minor atelectasis within the dependent portion of the lungs with tiny right pleural effusion. No evidence for pulmonary embolus Electronically Signed: Mateus Reynolds MD at 19:27 EDT , 08/12/23 0841 <Electronically signed by Damian Blanco MD> Cosigner Signature (if applicable): CC: ODALYS Rodriguez; Dr. Damian Blanco MD; Dr. Ha Echevarria MD~ Signed [facility] Work Phone: 1(101) 539-907609-14-2023 History and physical note Author Ha Echevarria [facility] August 12, 2023 5:21am Note Date/Time August 11, 2023 8:10pm [facility] Medical Records Department [address] [place] [address] H&P Exam - Hospitalist 08/11/232009 MR#: [id number] Acct: [id number] Name: PATT CRANE Rep #:[id number] : 1980 43 From: Ha Echevarria MD PCP: ODALYS Iraheta Status:ADM IN Location: [place] [address] HPI - General General Date of Admission: 08/11/23 Date of Service: 08/11/23 Chief Complaint: Light headedness HPI Narrative PATT CRANE, is a 43 F with a significant history of hypertension; diabetes mellitus and TIA who presents to the emergency department with 3-day history of progressively worsening lightheadedness. Associated with her symptoms is nauseaand dyspnea with exertion. Also patient reports epigastric fullness. She denies any oj chest pain. She was prescribed 2 blood pressure medicines about a week ago; and began takingthese 2 meds 2 days before presentation ago. On the presentation her blood pressure at home was 148/112. Of note patient she reports a history of heart disease; and TIA that started about 3 months after she had her baby. She is unable to elaborate the exact heart disease that she had. Her mother from cardiac arrest at the age of 59. Also her mother had CVA. [facility] Medical History delivery delivered Diabetes HTN (hypertension) TIA (transient ischemic attack) Home Medications carvedilol 3.125 mg tablet 3.125 mg PO BID 08/11/23 [History Last Taken Unknown] dulaglutide 0.75 mg/0.5 mL subcutaneous pen injector (Trulicity) 0.75 mg subcut QWEEK 08/11/23 [History Last Taken Unknown] lisinopril 5 mg tablet 5 mg PO DAILY 08/11/23 [History Last Taken Unknown] Allergy/AdvReac Type Severity Reaction Status Date / Time latex AdvReac Mild RASH Verified 08/11/23 16:44 Penicillins AdvReac UNKNOWN Verified 08/11/23 16:44 Family History Mother Diabetes Hypertension Father Diabetes Hypertension Surgical History Previous section Social History household members: significant other and children housing: house Smoking Status: Never smoker ROS ROS Narrative Pertinent positives and pertinent negatives as noted in HPI. All other systems were reviewed and are negative Vital Signs Vital Signs Vital Signs: 08/11/23 16:41 08/11/23 19:31 Temperature 97.7 F L Temperature Source Temporal Pulse Rate 120 H 110 H Respiratory Rate 18 14 Blood Pressure 152/108 H Blood Pressure Mean 122 Pulse Ox 99 Oxygen Delivery Method Room Air Weight Weight: 93.304 kg Body Mass Index (BMI) 36.4 Physical Exam Narrative Physical exam: General: Well-nourished, well-developed. Head: Normocephalic, atraumatic, no tenderness Eyes: Vision is grossly intact. EOMI ENT, no trauma, moist mucous membranes, no rhinorrhea Neck: Nontender, No thyromegaly. CVS: Regular rate and rhythm. S1-S2 present. No murmur, gallop or rub. Respiratory : clear to auscultation bilaterally, chest wall nontender Abdomen: Soft, nontender, nondistended, normal bowel sounds, no masses : Deferred Back: Nontender, no CVA tenderness, Extremities: Nontender full range of motion, no trauma Skin: Normal color, no trauma, abrasions Neuro: Alert, oriented, cranial nerves II through XII grossly intact. Psychiatry: Normal mood. Normal affect. Not depressed. Not anxious. Results Lab / Micro Data 08/11/23 18:04 08/11/23 18:04 Labs: Laboratory Results - last 24 hr 08/11/23 18:01: PT 14.1, INR 1.1, APTT 24.6 08/11/23 18:04: WBC 5.4, RBC 4.41, Hgb 11.8 L, Hct 37.8, MCV 85.7, MCH 26.8 L, MCHC 31.2 L, RDW Std Deviation 45.6 H, RDW Coeff of Chad 14.6, Plt Count 311, MPV10.1, Immature Gran % (Auto) 0.400, Neut % (Auto) 63.5, Lymph % (Auto) 26.6, [place] % (Auto) 7.6, Eos % (Auto) 1.3, Baso % (Auto) 0.6, Absolute Neuts (auto) 3.4, Absolute Lymphs (auto) 1.43, Nucleated RBC % 0, D-Dimer Quant (PE/DVT) 0.72H*, Sodium 135 L, Potassium 3.3 L, Chloride 106, Carbon Dioxide 25.0, Anion Gap 4 L, BUN 9, Creatinine 1.13 H, Estim Creat Clear Calc 53.65, Est GFR (MDRD) Af Amer 68, Est GFR (MDRD) Non-Af 56 L, BUN/Creatinine Ratio 8.0 L, Glucose 280 H, Calcium 9.0, Total Bilirubin 0.60, AST 60 H, ALT 105 H, Alkaline Phosphatase 91,Troponin I High Sens 1494 H*, Total Protein 6.8, Albumin 3.2, Globulin 3.6, Albumin/Globulin Ratio 0.9, Serum , Qual NEGATIVE 08/11/23 19:25: Urine Color Yellow, Urine Clarity Clear, Urine pH 6.0, Ur Specific [place] 1.015, Urine Protein 30 H, Urine Glucose (UA) 250 H, Urine Ketones 5 H, Urine Occult Blood Negative, Urine Nitrite Negative, Urine Bilirubin Negative, Urine Urobilinogen Normal, Ur Leukocyte Esterase Negative, Urine RBC 0 SEEN, Urine WBC 0 SEEN, Ur Squamous Epith Cells 0 SEEN, Urine Bacteria 0 SEEN, Urine Mucus 0 SEEN Radiology Impression Chest X-Ray 08/11/23 18:20 IMPRESSION: No acute cardiopulmonary pathology Electronically Signed: Mateus Reynolds MD at 18:31 EDT , Chest CTA 08/11/23 18:45 IMPRESSION: Cardiomegaly and minor atelectasis within the dependent portion of the lungs with tiny right pleural effusion. No evidence for pulmonary embolus Electronically Signed: Mateus Reynolds MD at 19:27 EDT , Assessment & Plan Assessment/Plan (1) Non-STEMI (non-ST elevated myocardial infarction): PLAN: Plan Non-STEMI Initial high sensitive troponin 1494. Trended to 2093 and then 2114. With dyspnea on exertion and epigastric fullness; atypical symptoms. Place on a monitored bed at the progressive care unit. CXR image was independently interpreted. No acute cardiopulmonary process was noted; agrees with radiology interpretation. Impression of chest CTA by radiology: Chest CTA with cardiomegaly and minor atelectasis within the dependent portion of the lungs with tiny right pleural effusion. No evidence for pulmonary embolus. Actual EKG tracing was independently visualized. EKG tracing showed block with right bundle branch block. Aspirin and high intensity statin started. Lisinopril and carvedilol continued. We will check lipid panel. Stat EKG as needed for chest pain. Started on heparin drip at the emergency department and continued We will keep patient n.p.o. except meds. Echocardiogram ordered. Cardiology consult. Hypertension On presentation blood pressure was not within goal. Patient was prescribed blood pressure medicine about a week ago and she began taking 2 days ago. She takes carvedilol and lisinopril. Carvedilol and lisinopril ordered. Trend blood pressures. Adjust blood pressure medication as necessary. Diabetes mellitus Patient with hyperglycemia on presentation On home Trulicity. Continue correction scale insulin ordered. DVT prophylaxis Indicated as patient is on heparin drip. Time spent in the patient's overall evaluation,decision-making process, review of diagnostic data, adjustment of management, discussion with other providers, nursing and ancillary staff involved in patient's care documentation, 65 minutes. Charges/Coding Visit Charges Inpatient E&M: 50827 Init Hosp L3 08/12/23 0521 <Electronically signed by Ha Echevarria MD> Cosigner Signature (if applicable): CC: ODALYS Rodriguez; Dr. Ha Echevarria MD~ Signed [facility] Work Phone: 1(157) 624-517809-14-2023 Discharge summary Author Placido Pena [facility] August 11, 2023 11:07pm Note Date/Time August 11, 2023 5:42pm [facility] Medical Records Department [address] [place] [address] Emergency Department Summary 08/11/23 MR#: [id number] Acct: [id number] Name: PATT CRANE Rep #:[id number] : 1980 43 From: Placido Pena MD PCP: Garry Rodriguez CARD SCRAPERAmelie Status:ADM IN Location: [address] History of Present Illness Chief Complaint: Dizziness Narrative Narrative: 43-year-old female past medical history of diabetes, hypertension, recently started on a new antihypertensive, presents with multiple somatic complaints, but mainly lightheadedness and near syncope. Is not necessarily worse with standing. She states been happening over the last few days. She feels like sheis going to pass out when she stands, but other times even at rest she feels lightheaded. She denies any chest pain or shortness of breath, no nausea or vomiting, no diarrhea. She denies any spinning sensation or vertiginous-like symptoms, no paresthesias. Although she is diabetic, she states that she has been checking her blood sugars recently. Last menstrual period was a week ago. She states she took her blood pressure and it was elevated in the 140 systolic. [facility] Medical History delivery delivered Diabetes HTN (hypertension) TIA (transient ischemic attack) Home Medications carvedilol 3.125 mg tablet 3.125 mg PO BID 08/11/23 [History Last Taken Unknown] dulaglutide 0.75 mg/0.5 mL subcutaneous pen injector (Trulicity) 0.75 mg subcut QWEEK 08/11/23 [History Last Taken Unknown] lisinopril 5 mg tablet 5 mg PO DAILY 08/11/23 [History Last Taken Unknown] Allergy/AdvReac Type Severity Reaction Status Date / Time latex AdvReac Mild RASH Verified 08/11/23 16:44 Penicillins AdvReac UNKNOWN Verified 08/11/23 16:44 Family History Mother Diabetes Hypertension Father Diabetes Hypertension Surgical History Previous section Social History household members: significant other and children housing: house Smoking Status: Never smoker ROS ROS ED ROS Narrative Constitutional: No fever, no chills. HEENT: No sore throat. No neck pain. No loss of vision. No rhinorrhea. Cardiovascular: No chest pain. No palpitations. No pedal edema. Respiratory: No cough, no shortness of breath. Abdominal: No abdominal pain. No nausea. No vomiting. Genitourinary: No dysuria. No hematuria. Musculoskeletal: No myalgias. No arthralgias. Neurologic: No headaches. No dizziness. Of lightheadedness and near syncope. Skin: No rash. No change in color. Psychiatric: No depression. No anxiety. EXAM Physical Exam Narrative Exam Narrative: Afebrile. Vital signs noted. HEENT: Normocephalic. Atraumatic. PERRL, EOMI. Neck soft and supple. No pointtenderness or step off. Cardiovascular: Tachycardia, no murmurs, rubs, or gallops appreciated. Respiratory: No tachypnea. Lungs clear to auscultation bilaterally. Gastrointestinal: Abdomen soft, nontender, with normoactive bowel sounds. No rebound or guarding. Neurological: Awake. Alert. Nonfocal, nonlateralizing. Skin: No rash. Normal color. No pallor. Musculoskeletal: No pedal edema. Full range of motion extremities. Const Vital Signs: 08/11/23 16:41 08/11/23 19:31 Temperature 97.7 F L Temperature Source Temporal Pulse Rate 120 H 110 H Respiratory Rate 18 14 Blood Pressure 152/108 H Blood Pressure Mean 122 Pulse Ox 99 Oxygen Delivery Method Room Air MDM MDM MDM Narrative Medical decision making narrative: Differential diagnosis is orthostatic hypotension, hyperglycemia, given her tachycardia lower on the differential is pulmonary embolism because the history and physical does not support this. She may have intravascular volume depletion. Comprehensive work-up was pursued. Obtain a CBC, CMP, test, and D- dimer. I do not feel CT of the brain is indicated because she is not having vertiginous- like symptoms is more near syncope. I do feel a single troponin would help rule out cardiac ischemia. EKG was obtained and interpreted by myself independently as sinus tachycardia at110 bpm with a right bundle branch block. No acute ST changes. No STEMI. No prior with which to compare. I reviewed her laboratory work and she has normal white count of 5.4, hemoglobin slightly low at 11.8 which I think is nonspecific, crit 37.8, platelet count normal at 311. Her D-dimer is slightly elevated at 0.72. Potassium is slightly low at 3.3 and hyponatremia of 135, BUNnormal at 9 with a creatinine of 1.13. Glucose is elevated to 80 consistent with her diabetes but she has an anion gap low at 4 so I do not have concern fordiabetic ketoacidosis. AST is slightly elevated at 60 with ALT of 105 and she has a normal alk phos. Urinalysis is negative for infection. Of significance is her troponin elevated at 1494. As she had an elevated D-dimer, CTA was obtained. I reviewed the radiology report which reports no evidence of pulmonary embolism. Chest x-ray in 1 view was interpreted by myself which showsno acute process, no pneumonia. I reviewed the radiology report which confirms my independent interpretation. I feel antibiotics are indicated. She was started on heparin given her non-STEMI/elevated troponin. Also given aspirin. At this point in time, patient was discussed with hospitalist, Dr. Echevarria, foradmission to the PCU. Patient is in stable condition. History & Record Review Discussion w/independent historian: Patient Additional record(s) reviewed:: No prior records Lab Data Attestation: I reviewed the patient's lab results. Labs: Laboratory Results - last 24 hr 08/11/23 08/11/23 08/11/23 18:01 18:04 19:25 WBC 5.4 RBC 4.41 Hgb 11.8 L Hct 37.8 MCV 85.7 MCH 26.8 L MCHC 31.2 L RDW Std Deviation 45.6 H RDW Coeff of Chad 14.6 Plt Count 311 MPV 10.1 Immature Gran % (Auto) 0.400 Neut % (Auto) 63.5 Lymph % (Auto) 26.6 [place] % (Auto) 7.6 Eos % (Auto) 1.3 Baso % (Auto) 0.6 Absolute Neuts (auto) 3.4 Absolute Lymphs (auto) 1.43 Nucleated RBC % 0 PT 14.1 INR 1.1 APTT 24.6 D-Dimer Quant (PE/DVT) 0.72 H* Sodium 135 L Potassium 3.3 L Chloride 106 Carbon Dioxide 25.0 Anion Gap 4 L BUN 9 Creatinine 1.13 H Estim Creat Clear Calc 53.65 Est GFR (MDRD) Af Amer 68 Est GFR (MDRD) Non-Af 56 L BUN/Creatinine Ratio 8.0 L Glucose 280 H Calcium 9.0 Total Bilirubin 0.60 AST 60 H ALT 105 H Alkaline Phosphatase 91 Troponin I High Sens 1494 H* Total Protein 6.8 Albumin 3.2 Globulin 3.6 Albumin/Globulin Ratio 0.9 Serum , Qual NEGATIVE Urine Color Yellow Urine Clarity Clear Urine pH 6.0 Ur Specific [place] 1.015 Urine Protein 30 H Urine Glucose (UA) 250 H Urine Ketones 5 H Urine Occult Blood Negative Urine Nitrite Negative Urine Bilirubin Negative Urine Urobilinogen Normal Ur Leukocyte Esterase Negative Urine RBC 0 SEEN Urine WBC 0 SEEN Ur Squamous Epith Cells 0 SEEN Urine Bacteria 0 SEEN Urine Mucus 0 SEEN Radiography Diagnostic Testing: Clinical Impression(s) from Imaging Studies Chest X-Ray 08/11/23 18:20 IMPRESSION: No acute cardiopulmonary pathology Electronically Signed: Mateus Reynolds MD at 18:31 EDT , Chest CTA 08/11/23 18:45 IMPRESSION: Cardiomegaly and minor atelectasis within the dependent portion of the lungs with tiny right pleural effusion. No evidence for pulmonary embolus Electronically Signed: Mateus Reynolds MD at 19:27 EDT , Discharge Plan Dx/Rx/DC Orders Clinical Impression: Lightheadedness, Non-STEMI (non-ST elevated myocardial infarction), Elevated d- dimer, Hypokalemia Disposition Disposition: Acute Care Hospital [facility] Discharge Date/Time: 08/11/23 21:07 What to do if you have Problems For any increased pain, shortness of breath, bleeding, nausea or vomiting, chestpain, or any unexpected problems, contact your Primary Care Provider. Call [facility] ([phone]) or report to the closest Emergency Room. Call 911 if necessary. 08/11/232306 <Electronically signed by Placido Pena MD> Cosigner Signature (if applicable): CC: ODALYS Rodriguez ~ Signed [facility] Work Phone: 1(494) 778-110009-13-2023 History of Present illness Narrative* Lauren Cotto APRN.ECONOMIC DEVELOPMENT COORDINATOR - 08/11/2023 4:30 PM EDT Came in with complaints of dizziness lightheaded for about 3 days. Patient says her blood pressure has been elevated today its been the highest its been. Patient says it was 140 over for 112. Patientsays she recently started lisinopril and carvedilol again. And this has been the highest she is ever seen her blood pressure. Due to patient being symptomatic patient is being referred to the emergency room at this time and was instructed to call her cardiology office. Patient was okay with this care plan and prefers to take her self. [facility] Miscellaneous Notes* Telephone Encounter - Sara Valdes RN - 07/05/2023 10:16 AM EDT Spoke with pt. Notified of test results and Dr espino's recommendations. Pt voices understanding. Pt agreeable to picker tender and start meds. She is agreeable to labs in 2 weeks. Sara Valdes RN * Telephone Encounter - Iwona Gee LPN - 07/05/2023 9:40 AM EDT Voicemail msg left for patient to return call to [facility] to review test results. Office phone number provided. Iwona Gee LPN * Telephone Encounter - Iwona Gee LPN - 07/02/2023 8:16 AM EDT Voicemail left for patient to return call to [facility] to review test results. Office phone number provided. Iwona Gee LPN * Telephone Encounter - Tone Espino MD - 07/01/2023 5:24 PM EDT Can you please let Ms. Crane know that her echocardiogram revealed mildly dilated left ventricle with borderline reduced LV function with EF 50%. There was otherwise evidence of moderate mitral regurgitation. Given these findings, I would recommend starting low dose cardiac medications with coreg 3.125 mg bid and lisinopril 5 mg daily. She will need repeat bloodwork in approximately 2 weeks time to reassess her electrolytes and kidney function. We will plan on getting a repeat echocardiogram in 1 year's time for reassessment of her LV size/function and mtiral regurgitation. Can we otherwise arrange follow up for her in 6 months time? Thanks, Tone Espino MD [facility] History of Present illness Narrative* Tone Espino MD - 05/05/2023 1:47 PM EDT PRIMARY CARE PHYSICIAN: Garry Rodriguez [address] [place] [id number] REFERRING PHYSICIAN: Garry Rodriguez [address] [place] [address] CHIEF COMPLAINT: History of peripartum cardiomyopathy HISTORY OF PRESENT ILLNESS: Ms. Crane is a 43 year old female with a history of diabetes, CVA with peripartum cardiomyopathy who was referred to cardiology clinic for further evaluation. 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 She did undergo an echocardiogram which revealed findings concerning for cardiomyopathy. As a result, she was started on medication therapy with what sounds like carvedilol, lisinopril and spironolactone. From her report, her LV function did improve with ongoing medication therapy. She reports she was maintained on these medications for a couple years and subsequently, they were gradually weaned off without reoccurrence of her cardiomyopathy. She did follow-up with cardiology up until approximately 2 to 3 years ago at [facility]. As patient recently moved to the [facility], she has established care with a new PCP and was recommended to reestablish care with cardiology in case she needed any further cardiac work-up. In discussion with the patient in clinic today, she reports doing well from a cardiac standpoint. She specifically denies any symptoms of chest pain, dyspnea on exertion, orthopnea, paroxysmal nocturnal dyspnea, lower extremity edema, claudication, presyncope, syncope, or palpitations. 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 Of note, patient was previously on therapy with Crestor given her history of prior embolic CVA and diabetes. However, she reports she developed diarrhea with the Crestor and thus discontinued it. In terms of her blood pressures, she reports they are typically well controlled in the 130s systolic. She has recently gotten a home blood pressure cuff to monitor her readings. 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 09/05/2012 Goiter 09/05/2012 Iron deficiency anemia 09/05/2012 PAST SURGICAL HISTORY Procedure Laterality Date DELIVERY ONLY 08-26-11 , low transverse MEDICATIONS: dulaglutide (TRULICITY) 0.75 mg/0.5 mL pen injector^Inject 0.75 mg subcutaneously one time a week for 30 days, THEN 1.5 mg one time a week.^Disp: 10 mL^Rfl: 0 blood sugar diagnostic (BLOOD GLUCOSE TEST) test strip^Patient checks sugars twice daily DX E11.65^Disp: 100 Strip^Rfl: 2 Lancets lancets^Patient checks sugars twice daily DX E11.65^Disp: 100 Each^Rfl: 2 Blood-Glucose Meter^1 Units once daily.^Disp: 1 Each^Rfl: 0 loratadine (CLARITIN) 10 mg tablet^Take 1 tablet by mouth once daily.^Disp: ^Rfl: atorvastatin (LIPITOR) 10 mg tablet^Take 1 tablet by mouth once daily.^Disp: 90 tablet^Rfl: 3 ALLERGIES Allergen Reactions Latex Hives, Itching Penicillins Unknown SOCIAL HISTORY: Social History Tobacco Use Smoking status: Never Substance Use Topics Alcohol use: Yes Comment: social Drug use: Never FAMILY HISTORY Problem Relation Age of Onset None Father a.unknown medical problem Stroke Mother a. hypertension, stroke, DM, renal failure None Brother one brother and 3 sisters a. [place] REVIEW OF SYSTEMS: GENERAL: Negative for: Fever, Chills, or Night sweats RESPIRATORY: Negative for: Cough, Blood in Sputum, Shortness of breath, Wheezing CARDIAC: Negative history of chest pain on exertion, dyspnea on exertion, orthopnea, paroxysmal nocturnal dyspnea, lower extremity edema, presyncope, syncope, or palpitations MUSCULOSKELETAL: Negative for: Muscle or joint pain, Joint swelling OTHER: The rest of the review of systems is unremarkable and negative or non-contributory PHYSICAL EXAMINATION: BP 144/80 Pulse 98 Ht 5' 3 (1.60m) Wt 200 lb (90.7kg) SpO2 99% BMI 35.44 kg/(m^2). GENERAL: Obese, in no acute distress. SKIN: No clubbing, no cyanosis. HEENT: Extraocular movements intact; Mucous membranes moist; LUNGS: Clear to auscultation bilaterally, no rales, wheezing, or rhonchi. HEART: Regular rate and rhythm; normal S1/S2; no murmurs, gallops, or rubs EXTREMETIES: No peripheral edema. Grade 2/4 distal pulses bilaterally. NEURO: Oriented to person, place and time. Alert, cooperative. PSYCH: Normal mood/affect CARDIAC TESTING: EKG: EKG, 05/05/2023: Normal sinus rhythm. Biatrial enlargement. Right bundle branch block. Echocardiogram: OSH TTE, 03/08/2018: Normal LV systolic function with ejection fraction 65%. Normal diastolic function. 1+ mitral valve regurgitation. RVSP 32 mmHg. TTE, 09/14/2012: Mild LV systolic dysfunction with ejection fraction 50%. No significant valve disease. I have personally reviewed the Electrocardiogram and Laboratory Testing. ASSESSMENT: Ms. Crane is a 43 year old female with a history of diabetes, CVA with peripartum cardiomyopathy who was referred to cardiology clinic for further evaluation. PLAN AND RECOMMENDATIONS: H/o peripartum cardiomyopathy: Patient reports a history of peripartum cardiomyopathy after the of her son back in 2010. She was maintained on optimal medical therapy for a couple years and subsequently this was weaned off gradually over time as per her report. Her last echocardiogram from 2018 otherwise continues to reveal normal LV function. I did recommend she have a repeat echocardiogram performed to reassess her overall cardiac structure and function. Assuming this is unremarkable, there would be no indication for restarting cardiac medication therapy. I will contact her with the results of her study and make any further recommendations as necessary. Otherwise, she has no intention of having any further kids and does understand that she would be atincreased risk for again developing peripartum cardiomyopathy with repeat . 2. Hyperlipidemia: Given patient's history of prior embolic CVA along with diabetes, she should ideally be on statin therapy. She was not able to tolerate Crestor due to development of diarrhea. As such, I recommended she try Lipitor 10 mg at bedtime instead. In addition, given her history of priorCVA, I did recommend she start on low-dose aspirin therapy. I will otherwise defer ongoing management of her lipids to her PCP. Tone Espino MD Please Note: The time of this note does not reflect the time I saw this patient today, but the timeof this documentation. Also, this note has been created using [employer]oder[employer], a speech recognition software program, and may contain errors including punctuation, grammar, spelling, gender, and inappropriate words or phrases that pertain to the sytem. documented in this encounterW[facility]06-07-[facility] Instructions* Patient Instructions* Tone Espino MD - 05/05/2023 1:45 PM EDT Echocardiogram for further evaluation documented in this encounterWvumedicine [facility]06-07-2023 Nurse Note* Iwona Gee LPN - 05/05/2023 1:08 PM EDT Patient denies any cardiac complaints or symptoms. Iwona Gee LPN documented in this encounterWvumed[facility]04-25-2023 Miscellaneous Notes* Telephone Encounter - Akshat Quesada MA - 03/23/2023 4:03 PM EDT Prior auth on ozempic done again through cover my meds. Muñoz code [id number] . Akshat Quesada MA documented in this encounterWvumedicine [facility]04-25-2023 Instructions* Patient Instructions* Garry Rodriguez APRN.[place] - 03/23/2023 10:53 AM EDT Self-titrate Lantus insulin Increase Lantus by 4 units every week until fasting blood sugars are around 130 documented in this encounterWvumedicine [facility]04-25-2023 History of Present illness Narrative* Garry Rodriguez APRN.[place] - 03/23/2023 10:49 AM EDT This note was created using [employer]. Subjective Patt Crane is a 42 year old female here today for diabetes follow-up visit. I reviewed past medical, surgical, social, and family histories today and updated chart. Allergies, chronic medications, and supplements were also reviewed. Patient has type 2 diabetes. Feeling well today overall Denies dizziness, chest pain, shortness of breath, changes in vision, fatigue, foot pain. Denies numbness and tingling in extremities. Denies polydipsia, polyphagia, polyuria. Home Blood Sugars: this morning 205 Never above 250 She is taking 40 units of Lantus insulin Medication Compliance: Insurance did not approve ozempic She has tried metformin and glimepiride in the past which were not effective, will try prior auth again Low Blood Sugars: none Diet: mostly diabetic diet Exercise: no regular routine Eye Exam: due foe eye exam Podiatry: no issues Tobacco use - none Alcohol use - none Right shoulder pain - still having pain there, feels like its in the deltoid muscle She knows she needs to have a mammogram, avoiding it because she had pain for 2 weeks afterwards. 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 rosuvastatin (CRESTOR) 10 mg tablet Take 1 tablet by mouth daily at bedtime. semaglutide (OZEMPIC) 0.25 mg or 0.5 mg (2 mg/3 mL) pen Inject 0.25 mg subcutaneously one time a week. loratadine (CLARITIN) 10 mg tablet Take 1 tablet by mouth once daily. insulin glargine 100 unit/mL (3 mL) Inject 60 Units subcutaneously daily at bedtime. FAMILY HISTORY Problem Relation Age of Onset None Father a.unknown medical problem Stroke Mother a. hypertension, stroke, DM, renal failure None Brother one brother and 3 sisters a. [place] Social History Tobacco Use Smoking status: Never Substance Use Topics Alcohol use: Yes Comment: social Drug use: Never Review of Systems Constitutional: Negative for appetite change, chills, fatigue, fever and unexpected weight change. HENT: Negative for congestion, ear pain, rhinorrhea and sore throat. Eyes: Negative for pain, discharge, itching and visual disturbance. Respiratory: Negative for cough, shortness of breath and wheezing. Cardiovascular: Negative for chest pain, palpitations and leg swelling. Gastrointestinal: Negative for abdominal pain, constipation, diarrhea, nausea and vomiting. Genitourinary: Negative for difficulty urinating. Musculoskeletal: Positive for arthralgias. Skin: Negative for rash. Neurological: Negative for dizziness, tremors, weakness and headaches. Psychiatric/Behavioral: Negative for dysphoric mood and sleep disturbance. The patient is not nervous/anxious. Objective BP 126/74 Pulse 89 Temp 37 C (98.6 F) Ht 160 cm (5' 3) Wt 93 kg (205 lb) SpO2 98% BMI 36.31 kg/m Physical Exam Constitutional: Appearance: Normal appearance. She is well-developed. She is not diaphoretic. HENT: Head: Normocephalic and atraumatic. Right Ear: Hearing, tympanic membrane, ear canal and external ear normal. Left Ear: Hearing, tympanic membrane, ear canal and external ear normal. Nose: Nose normal. Mouth/Throat: Lips: [place]. Mouth: Mucous membranes are moist. Pharynx: Oropharynx is clear. Eyes: General: Lids are normal. Extraocular Movements: Extraocular movements intact. Conjunctiva/sclera: Conjunctivae normal. Pupils: Pupils are equal, round, and reactive to light. Neck: Thyroid: No thyroid mass or thyromegaly. Vascular: Normal carotid pulses. No carotid bruit. Cardiovascular: Rate and Rhythm: Normal rate and regular rhythm. Pulses: Radial pulses are 2+ on the right side and 2+ on the left side. Dorsalis pedis pulses are 2+ on the right side and 2+ on the left side. Posterior tibial pulses are 2+ on the right side and 2+ on the left side. Heart sounds: Normal heart sounds. No murmur heard. Pulmonary: Effort: Pulmonary effort is normal. Breath sounds: Normal breath sounds. No wheezing, rhonchi or rales. Abdominal: General: Bowel sounds are normal. Palpations: Abdomen is soft. Tenderness: There is no abdominal tenderness. Musculoskeletal: General: Normal range of motion. Cervical back: Normal range of motion. Lymphadenopathy: Cervical: No cervical adenopathy. Upper Body: Right upper body: No supraclavicular adenopathy. Left upper body: No supraclavicular adenopathy. Skin: General: Skin is warm and dry. Findings: No lesion or rash. Neurological: General: No focal deficit present. Mental Status: She is alert and oriented to person, place, and time. Cranial Nerves: No cranial nerve deficit. Sensory: Sensation is intact. Motor: Motor function is intact. Coordination: Coordination is intact. Gait: Gait normal. Psychiatric: Attention and Perception: Attention and perception normal. Mood and Affect: Mood and affect normal. Speech: Speech normal. Behavior: Behavior normal. Behavior is cooperative. Cognition and Memory: Cognition and memory normal. Judgment: Judgment normal. Feet:Shoes and socks removed, Are you having foot pain no, No deformities, ulcers, calluses, normaldistal pulses, sensitive to 10 gm monofilament, and vibratory perception normal Component Latest Ref Rng & Units 02/19/2023 Protein, Total 6.3 - 8.0 g/dL 7.9 Albumin 3.9 - 4.9 g/dL 4.2 Calcium 8.5 - 10.2 mg/dL 9.1 Bilirubin, Total 0.2 - 1.3 mg/dL 0.5 Alkaline Phosphatase 34 - 123 U/L 98 AST 13 - 35 U/L 13 ALT 7 - 38 U/L 12 Glucose 74 - 99 mg/dL 236 (H) BUN 7 - 21 mg/dL 7 Creatinine 0.58 - 0.96 mg/dL 0.70 Sodium 136 - 144 mmol/L 136 Potassium 3.7 - 5.1 mmol/L 3.8 Chloride 97 - 105 mmol/L 102 CO2 22 - 30 mmol/L 24 Anion Gap 9 - 18 mmol/L 10 eGFR >=60 mL/min/1.73m 112 WBC 3.70 - 11.00 k/uL 6.67 RBC 3.90 - 5.20 m/uL 5.18 Hemoglobin 11.5 - 15.5 g/dL 13.9 Hematocrit 36.0 - 46.0 % 44.7 MCV 80.0 - 100.0 fL 86.3 MCH 26.0 - 34.0 pg 26.8 MCHC 30.5 - 36.0 g/dL 31.1 RDW-CV 11.5 - 15.0 % 13.6 Platelet Count 150 - 400 k/uL 412 (H) MPV 9.0 - 12.7 fL 9.7 Absolute nRBC <0.01 k/uL <0.01 Cholesterol, Total <200 mg/dL 186 Triglyceride <150 mg/dL 106 HDL Cholesterol >39 mg/dL 53 Non HDL Cholesterol <130 mg/dL 133 (H) Fasting Time hrs 12 VLDL Cholesterol <30 mg/dL 21 TC:HDL Ratio <5.10 3.51 LDL Cholesterol <100 mg/dL 112 (H) LDL:HDL Ratio <2.54 2.11 TSH 0.270 - 4.200 mIU/L 1.210 ASSESSMENT/PLAN: 1. Type 2 diabetes mellitus with hyperglycemia, with long-term current use of insulin (HCC) - ICD9:250.00, 790.29, V58.67, ICD10: E11.65, Z79.4 (primary diagnosis) Self-titrate Lantus insulin Increase Lantus by 4 units every week until fasting blood sugars are around 130 - Uncontrolled Failed metformin and glimepiride in the past Attempting semaglutide Rx again - Counseled on healthy diet and regular exercise - Discussed need for and benefit of weight loss. BMI 36.31 kg/(m^2) - Follow up in 2 months, sooner should any other issues arise. - SEMAGLUTIDE 0.25 MG OR 0.5 MG (2 MG/3 ML) SUBCUTANEOUS PEN INJECTOR 2. Obesity, Class II, BMI 35-39.9 - ICD9: 278.00, ICD10: E66.9 Stable - Behavioral intervention and - Pharmacological intervention - SEMAGLUTIDE 0.25 MG OR 0.5 MG (2 MG/3 ML) SUBCUTANEOUS PEN INJECTOR 3. Depression screening - ICD9: V79.0, ICD10: Z13.31 - DEPRESSION SCREENING/ASSESSMENT Garry Rodriguez APRN.[place] documented in this encounterW[facility]03-30-2023 Miscellaneous Notes* Telephone Encounter - Carmel Dennison MA - 02/25/2023 12:02 PM EDT Sent a InLive Interactive message informing patient of results. Carmel Dennison MA * Telephone Encounter - Carmel Dennison MA - 02/25/2023 11:44 AM EDT Left a message for patient to call back to review x-ray and eb results. Carmel Dennison MA * Telephone Encounter - Carmel Dennison MA - 02/25/2023 11:44 AM EDT ----- Message from Garry Rodriguez APRN.CNP sent at 02/24/2023 10:07 PM EDT ----- Normal x-ray of shoulder, there is a very small bony overgrowth but I do not think that is contributing to her pain. Garry Rodriguez APRN.CNP documented in this encounterWvumed[facility]03-30-2023 Miscellaneous Notes* Telephone Encounter - Carmel Dennison MA - 02/25/2023 11:36 AM EDT Left a message for patient to call back. Carmel Dennison MA * Telephone Encounter - Garry Rodriguez APRN.CNP - 02/25/2023 11:19 AM EDT Please notify patient her mammogram showed an irregular area on her left breast and we need to get a better picture with diagnostic mammogram and ultrasound. See orders. Garry Rodriguez APRN.[place] documented in this encounterWv[facility]03-30-2023 Miscellaneous Notes* Telephone Encounter - Pilar Wallace MA - 02/25/2023 10:28 AM EDT patient phones requesting refills as follows: Last seen 02/17/23 . Patient left message stating she got her glucometer but it did not have test strips or lancets with it. Requested Prescriptions Pending Prescriptions Disp Refills blood sugar diagnostic (BLOOD GLUCOSE TEST) test strip 100 Strip 2 Sig: Patient checks sugars twice daily DX E11.65 Lancets lancets 100 Each 2 Sig: Patient checks sugars twice daily DX E11.65 Please review and advise. Pilar Wallace MA documented in this encounterW[facility]2023 Miscellaneous Notes* Telephone Encounter - Akshat Quesada MA - 02/24/2023 9:40 AM EDT Second request , please send. Akshat Quesada MA * Telephone Encounter - Akshat Quesada MA - 02/23/2023 2:49 PM EDT Patient requesting meter to go to [employer]. Please send. Thanks. Akshat Quesada MA documented in this encounterWv[facility]2023 Miscellaneous Notes* Telephone Encounter - Akshat Quesada MA - 02/24/2023 9:36 AM EDT Lm on pt. Vm prior auth done for ozempic Muñoz code [id number]. Akshat Quesada MA documented in this encounterWvumedicine [facility]03-28-2023 Miscellaneous Notes* Letter - Mammography Coordinator - 02/23/2023 2:27 PM EDT February 25, 2023 PID: [id number] Patt Royce [address] [place] [address] Dear Ms. Crane, Your recent breast imaging exam on 02/23/2023 showed a possible finding that requires additional imaging studies for a complete evaluation. Most such findings are probably benign (not cancer). Your mammogram demonstrates that you have dense breast tissue, which could hide abnormalities. Dense breast tissue, in and of itself, is a relatively common condition. Therefore, this information is not provided to cause undue concern; rather, it is to raise your awareness and promote discussion with your health care provider regarding the presence of dense breast tissue in addition to other riskfactors. If you have a healthcare provider who ordered/prescribed your screening mammogram: Please call [phone] or [phone]: [phone] to schedule an appointment for your additional imaging (if youhave not already done so). If you DO NOT have a healthcare provider (ie you did not have an order/prescription for your screening mammogram): Please call to schedule an appointment for your additional imaging (if you have not already done so). You must have an order/prescription from your physician when calling to schedule your appointment. If your order/prescription is not electronic, you must bring the hard copy with you on the day of your exam to avoid delays. Your imaging studies and reports are kept on [facility] at [facility] as part of your permanent medical record, and are available for your continuing care. Thank you for allowing us to help in meeting your health care needs. Sincerely, Dr. Warren Interpreting Radiologist [facility] (Additional imaging) documented in this encounterWvumedicine [facility]03-28-2023 History of Present illness Narrative* Anel Cullen RT(R) - 02/23/2023 12:50 PM EDT Radiology Service Progress Note PATIENT NAME: Patt Crane DATE OF SERVICE: February 23, 2023 TIME: 1:18 PM PATIENT IDENTITY VERIFICATION COMPLETED USING TWO (2) IDENTIFIERS: Name and Date of confirmedby patient verbally. FALL SCREENING: Has the patient had 2 falls in the last year or 1 fall with injury or currently using an Ambulatory Assistive Device (Walker, Cane, Wheelchair, Crutches, etc.)? No PATIENT GENDER DATA: Female. status: : No status: NO. PATIENT RELEVANT IMPLANT DATA REVIEWED: Not Applicable RADIOLOGY DEPARTMENT: Mammography PERIPHERAL IV DATA: Not applicable SIGNED BY: RT Vlad(R) February 23, 2023 1:18 PM documented in this encounterWvumed[facility]03-27-2023 Miscellaneous Notes* Telephone Encounter - Garry Rodriguez APRN.CNP - 02/22/2023 11:12 AM EDT Rx changed to 3 ml pen, dose stays the same. Garry Rodriguez APRN.ECONOMIC DEVELOPMENT COORDINATOR * Telephone Encounter - Akshat Quesada MA - 02/22/2023 11:00 AM EDT Received fax from [employer] requesting 3ml pen for ozempic due to not having 1.5 any longer. Akshat Quesada MA Placed fax in red folder. documented in this encounterWvumedicine [facility]03-24-2023 History of Present illness Narrative* Dena Montalvo RT(R) - 02/19/2023 1:15 PM EDT Radiology Service Progress Note PATIENT NAME: Patt Crane DATE OF SERVICE: February 19, 2023 TIME: 1:12 PM PATIENT IDENTITY VERIFICATION COMPLETED USING TWO (2) IDENTIFIERS: Name and Date of confirmedby patient verbally. FALL SCREENING: Has the patient had 2 falls in the last year or 1 fall with injury or currently using an Ambulatory Assistive Device (Walker, Cane, Wheelchair, Crutches, etc.)? No PATIENT GENDER DATA: Female. status: : No status: NO. PATIENT RELEVANT IMPLANT DATA REVIEWED: Yes RADIOLOGY DEPARTMENT: General X-ray: Exam(s) Completed: Upper Extremity X- Ray(s): Shoulder, AP / TRUE AP / AXILLARY right PERIPHERAL IV DATA: Not applicable SIGNED BY: RT Germaine(R) February 19, 2023 1:12 PM documented in this encounterWvumed[facility]03-22-2023 History of Present illness Narrative* Garry Rodriguez APRN.CNP - 02/17/2023 11:24 AM EDT This note was created using [employer]riter. Subjective Patt Crane is a 42 year old female here today for diabetes follow-up visit. I reviewed past medical, surgical, social, and family histories today and updated chart. Allergies, chronic medications, and supplements were also reviewed. She is a new patient, former PCP [facility] Patient has type 2 diabetes. Diagnosed after she had her son about 11 years ago. She was in good health prior to her son being born Was on some oral meds in the past - metformin gave her GI side effects Home nurse from [facility] saw her recently, A1C was 10.0 - on 01/27/23 She has been out of medication for a little over a month Currently on Lantus insulin at bedtime 25-60 units based on her blood sugars Was seeing neurologist and rn stars for history of stroke and cardiomyopathy Was on coumadin then changed to different AC then told she didn't need that anymore Last neurologist and rn stars at [facility] Was taken off her blood pressure medications No history of kidney issues in the past PAST MEDICAL HISTORY Diagnosis Date cardiomyopathy, 09/05/2012 DM (diabetes mellitus) type II 09/05/2012 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 loratadine (CLARITIN) 10 mg tablet Take 1 tablet by mouth once daily. carvedilol (COREG) 12.5 mg tablet Take 1 tablet by mouth twice daily. (Patient not taking: Reportedon 02/17/2023) enoxaparin (LOVENOX) 40 mg/0.4 mL Syrg Inject 0.4 mL subcutaneously twice daily. Inject entire contents of one(1) syringe (Patient not taking: Reported on 02/17/2023) Ferrous Sulfate 325 mg (65 mg iron) tablet Take 1 tablet by mouth three times daily. (Patient not taking: Reported on 02/17/2023) FAMILY HISTORY Problem Relation Age of Onset None Father a.unknown medical problem Stroke Mother a. hypertension, stroke, DM, renal failure None Brother one brother and 3 sisters a. [place] Social History Tobacco Use Smoking status: Never Substance Use Topics Alcohol use: Yes Comment: social Drug use: Never Review of Systems Constitutional: Negative for appetite change, chills, fatigue, fever and unexpected weight change. 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 Eyes: Negative for pain, discharge, itching and visual disturbance. Wears glasses Respiratory: Negative for cough, shortness of breath and wheezing. Never smoked Cardiovascular: Negative for chest pain, palpitations and leg swelling. Gastrointestinal: Negative for abdominal pain, constipation, diarrhea, nausea and vomiting. Genitourinary: Negative for difficulty urinating. Still has regular periods Last Pap was about a year ago No abnormal Paps Heavy flow Had Mammogram long time ago d/t lump found on exam, it was normal Musculoskeletal: Negative for arthralgias, back pain and neck pain. 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 In the summer breaks out into rash on top of both hands, little bumps, itches. Doctor gave her a cream and it helps. Allergic/Immunologic: Positive for environmental allergies (seasonal allergies). Neurological: Positive for weakness. Negative for dizziness, tremors, seizures, syncope and headaches. Psychiatric/Behavioral: Negative for dysphoric mood and sleep disturbance. The patient is not nervous/anxious. Objective BP 144/84 Pulse 95 Temp 36.9 C (98.4 F) Ht 160 cm (5' 3) Wt 93 kg (205 lb) SpO2 98% BMI 36.31 kg/m 158 88 Physical Exam Constitutional: Appearance: Normal appearance. She is well-developed. She is not diaphoretic. HENT: Head: Normocephalic and atraumatic. Right Ear: Hearing, tympanic membrane, ear canal and external ear normal. Left Ear: Hearing, tympanic membrane, ear canal and external ear normal. Nose: Nose normal. Mouth/Throat: Lips: [place]. Mouth: Mucous membranes are moist. Pharynx: Oropharynx is clear. Eyes: General: Lids are normal. Conjunctiva/sclera: Conjunctivae normal. Pupils: Pupils are equal, round, and reactive to light. Neck: Vascular: Normal carotid pulses. No carotid bruit or JVD. Cardiovascular: Rate and Rhythm: Normal rate and regular rhythm. Pulses: Carotid pulses are 2+ on the right side and 2+ on the left side. Radial pulses are 2+ on the right side and 2+ on the left side. Dorsalis pedis pulses are 2+ on the right side and 2+ on the left side. Heart sounds: Normal heart sounds. No murmur heard. Pulmonary: Effort: Pulmonary effort is normal. Breath sounds: Normal breath sounds. No wheezing, rhonchi or rales. Abdominal: General: Bowel sounds are normal. Palpations: Abdomen is soft. Tenderness: There is no abdominal tenderness. Musculoskeletal: Right shoulder: Tenderness present. Decreased range of motion. Decreased strength. Cervical back: Normal range of motion and neck supple. Right lower leg: No edema. Left lower leg: No edema. Comments: Right shoulder tests: Positive lift off Pain with adduction Positive empty can test Lymphadenopathy: Cervical: No cervical adenopathy. Skin: General: Skin is warm and dry. Findings: No rash. Neurological: General: No focal deficit present. Mental Status: She is alert and oriented to person, place, and time. Cranial Nerves: No cranial nerve deficit. Sensory: Sensation is intact. Motor: Motor function is intact. Coordination: Coordination is intact. Gait: Gait is intact. Psychiatric: Attention and Perception: Attention and perception normal. Mood and Affect: Mood and affect normal. Speech: Speech normal. Behavior: Behavior normal. Behavior is cooperative. Thought Content: Thought content normal. Judgment: Judgment normal. ASSESSMENT/PLAN: 1. Type 2 diabetes mellitus with hyperglycemia, with long-term current use of insulin ([facility]) - ICD9:250.00, 790.29, V58.67, ICD10: E11.65, Z79.4 (primary diagnosis) Last A1C 10.0 - 01/29/23 - Uncontrolled Restart Lantus insulin 60 units at bedtime, okay to self adjust according to FBS FBS goal is less than 130 She is interested in Ozempic, will check labs first and consider it - Blood glucose monitoring on a once daily schedule - Counseled on healthy diet and regular exercise - Follow up in 3 months, sooner should any other issues arise. - ALBUMIN/CREAT RATIO RND UR - CBC - COMP METABOLIC PANEL - LIPID PANEL BASIC - TSH BLD - CONSULT TO OPHTHALMOLOGY - BLOOD-GLUCOSE METER - LANCETS - BLOOD GLUCOSE TEST STRIPS 2. Wears glasses - ICD9: V49.89, ICD10: Z97.3 Referral to ophthalmology - CONSULT TO OPHTHALMOLOGY 3. Primary hypertension - ICD9: 401.9, ICD10: I10 - poor control May need to restart medications - Encouraged dietary sodium restriction/DASH diet - Recommend home blood pressure monitoring, to bring results in on next visit - Follow up in 1 month for BP recheck. - Goal of BP <130/80 - CBC - COMP METABOLIC PANEL - LIPID PANEL BASIC - TSH BLD - CONSULT TO CARDIOLOGY - BLOOD PRESSURE MONITOR KIT 4. Iron deficiency anemia, unspecified iron deficiency anemia type - ICD9: 280.9, ICD10: D50.9 Check labs 5. Menorrhagia with regular cycle - ICD9: 626.2, ICD10: N92.0 Referral to ERGONOMIST [facility] [place] - CONSULT TO URGENT CARE 6. cardiomyopathy, - ICD9: 674.54, ICD10: O90.3 Was following with rn stars yearly, would like to see CC provider in [place] area She is clinically stable and asymptomatic - CONSULT TO CARDIOLOGY 7. Cerebrovascular accident (CVA) due to embolism of left middle cerebral artery (HCC) - ICD9: 434.11, ICD10: I63.412 Would like to continue yearly follow-up with neurology, referral placed [facility] [place] Will likely need statin - CONSULT TO NEUROLOGY 8. Chronic right shoulder pain - ICD9: 719.41, 338.29, ICD10: M25.511, G89.29 Meloxicam 15 mg daily x 14-30 days X-ray PT referral - MELOXICAM 15 MG TABLET - XR SHOULDER GENERAL 3V OR MORE AP/TRUE AP/OTHER RIGHT 9. Encounter for screening mammogram for malignant neoplasm of breast - ICD9: V76.12, ICD10: Z12.31 - Set up for mammogram, yearly mammogram recommended - [facility] SCREENING Garry Rodriguez, SHIRLENE.ECONOMIC DEVELOPMENT COORDINATOR Reviewed patient's records in [facility]: Saw Dr Parada endocrinology 11/19/20 - was on Basaglar and meal time humalog 11/19/20 C-Peptide = 2.5, normal Saw Dr. Charles cardiology 11/08/20 - ECHO 2013 normal LVF, no LVH, no valce abn, normal diastology. 04/05/18 normal treadmill stress ECHO. EKG NSR with RBBB. Was on Eliquis but no BP meds at that time. [facility] History of Present illness Narrative* Татьяна Dinh, IMMIGRATION COORDINATOR - 12/26/2019 9:20 AM [facility] Physical Therapy Cancellation/No-show Note Patient Name: Patt Crane : 1980 Date: 12/26/2019 Referring Practitioner: Ama Bell PA-C Diagnosis: Acute pain of Lt knee Visit Information: PT Visit Information PT Insurance Information: [employer] Total # of Visits Approved: 30 Total # of Visits to Date: 2 No Show: 1 Canceled Appointment: 1 Progress Note Counter: 01/03 cxl 12/26/2019 For today's appointment patient: [x] Cancelled [] Rescheduled appointment [] No-show [x] Called pt to remind of next appointment Reason given by patient: [] Patient ill [] Conflicting appointment [] No transportation [] Conflict with work [] No reason given [x] Other: Son is ill. Comments: Advised pt to schedule more appt.'s [place] Signature: [facility] Cont[facility] Work Phone: [phone] History of Present illness Narrative* Moe Wong, IMMIGRATION COORDINATOR - 12/19/2019 9:20 AM [facility] Physical Therapy Cancellation/No-show Note Patient Name: Patt Crane : 1980 Date: 12/19/2019 Referring Practitioner: Ama Bell PA-C Diagnosis: Acute pain of Lt knee Visit Information: PT Visit Information PT Insurance Information: [employer] Total # of Visits Approved: 30 Total # of Visits to Date: 2 No Show: 1 Canceled Appointment: 1 Progress Note Counter: 2 NS 12/19/2019 For today's appointment patient: [] Cancelled [] Rescheduled appointment [x] No-show [x] Called pt to remind of next appointment Reason given by patient: [] Patient ill [] Conflicting appointment [] No transportation [] Conflict with work [] No reason given [] Other: Comments: LM informing pt of NV on 12/26/2019 at 9:20. Signature: [facility] L[facility] Direct Phone: [phone] 738-914901-14-2020 History of Present illness Narrative* Shasta Coe, PT - 12/12/2019 9:20 AM EST Therapy Cancellation/No-show Note Date: 12/12/2019 Patient Name: Patt Crane : 1980 Referring Practitioner: Ama Bell PA-C Diagnosis: Acute pain of Lt knee Visit Information: PT Visit Information PT Insurance Information: [facility] Total # of Visits Approved: 30 Total # of Visits to Date: 2 No Show: 0 Canceled Appointment: 1 Progress Note Counter: 01/03 (cx 12/12/19) For today's appointment patient: [x] Cancelled [] Rescheduled appointment [] No-show [] Called pt to remind of next appointment Reason given by patient: [] Patient ill [] Conflicting appointment [] No transportation [] Conflict with work [] No reason given [x] Other: work [x] Pt has future appointments scheduled, no follow up needed [] Pt requests to be on hold. Reason: If > 2 weeks please discuss with therapist. [] Therapist to call pt for follow up Comments: Signature: [facility] this [facility] Direct Phone: [phone] History of Present illness Narrative* Sonia Castellano, PT - 11/28/2019 9:00 AM EST 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 Past Surgical History: has a past surgical history that includes section. 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 Lt knee clicks sometimes when she walks. Pain occursmostly with stairs and knees occasionally slightly buckle when walking for long periods like when she is at work. No recent testing. Pain is relieved with sitting. Rt knee hurts all around knee and Lt is along lateral border of knee. Pain in the past week 0-8/10. Objective: Sensation Overall Sensation Status: WNL Balance Single Leg Stance R Le Single Leg Stance L Le Ambulation 1 Surface: carpet Device: No Device Assistance: Independent Quality of Gait: Corey slight Trendelenburg, mild Rt toe out Distance: throughout clinic Stairs # Steps : 8 Stairs Height: 6 Rails: None Device: No Device Assistance: Independent Comment: recip, mild lateral knee deviations with descending Strength RLE Strength RLE: WFL Comment: Except hip abd and ext 4+/5 Strength LLE Strength LLE: WFL Comment: Except hip abd and ext 4+/5 AROM RLE (degrees) RLE General AROM: Knee 0-129deg AROM LLE (degrees) LLE General AROM: Knee 0-128deg Observation/Palpation Observation: Corey overpronation, Slight medial and lateral knee deviations with squatting Additional Measures Special Tests: Patellar mobility WFL, (-) corey Ant Drawer, varus and valgus stress test, Raul's Exercises: Exercises Exercise 1: Bike* Exercise 2: 3 way SLR - review* Exercise 3: 4 way hip* Exercise 4: Monster walks* Exercise 5: Lunges* Exercise 6: Step ups* Exercise 7: Step downs* Exercise 20: HEP: sidelying hip abd, prone hip ext *Indicates exercise,modality, or manual techniques to be initiated when appropriate Assessment: Body structures, Functions, Activity limitations: Decreased functional mobility , Decreased strength, Decreased endurance, Increased pain Assessment: Pt presents with ongoing corey knee pain that occurs with prolonged walking and stair negotiation. Pt demonstrates some decreased corey hip strength and stand with corey over pronation possiblyaffecting knee pain. Discussed orthotics to improve over pronation to potentially reduce strain on knees. Pt with some medial nad lateral knee deviations with squatting and stair negotiation. Pt ambulates with mild corey Trendelenburg suggesting decreased dynamic hip stability. Pt would benefit from further skilled PT to improve her strength and reduce her pain with all mobility. Prognosis: Good Discharge Recommendations: Continue to assess pending progress Activity Tolerance: Patient Tolerated treatment well Decision Making: Low Complexity History: PMH: DM, CVA, HTN Exam: Decreased strength and knee stability with dynamic activities with pain impacting functional mobility. LEFS = 70/80 Clinical Presentation: Uncomplicated Plan Frequency/Duration: Plan Times per week: 1 Plan weeks: 5 Current Treatment Recommendations: Strengthening, ROM, Functional Mobility Training, Gait Training,Stair training, Neuromuscular Re-education, Manual Therapy - Soft Tissue Mobilization, Home Exercise Program, Safety Education & Training, Patient/Caregiver Education & Training, Equipment Evaluation, Education, & procurement, Modalities, Integrated Dry Needling Plan Comment: Transfer care to Shasta Coe PT Patient Education New Education Provided: PT Education: Goals;PT Role;Plan of Care POST-PAIN Pain Rating (0-10 pain scale): 0 /10 Location and pain description same as pre-treatment unless indicated. Action: [x] NA [] Call Physician [] Perform HEP [] Meds as prescribed Evaluation and patient rights have been reviewed and patient agrees with plan of care. Yes [x] No [] Explain: Geller Fall Risk Assessment Risk Factor Scale Score History of Falls [] Yes [x] No 25 0 0 Secondary Diagnosis [] Yes [x] No 15 0 0 Ambulatory Aid [] Furniture [] Crutches/cane/walker [x] None/bedrest/wheelchair/nurse 30 15 0 0 IV/Heparin Lock [] Yes [x] No 20 0 0 Gait/Transferring [] Impaired [x] Weak [] Normal/bedrest/immobile 20 10 0 10 Mental Status [] Forgets limitations [x] Oriented to own ability 15 0 0 Total:10 Based on the Assessment score: check the appropriate box. [x] No intervention needed Low = Score of 0-24 [] Use standard prevention interventions Moderate = Score of 24-44 [] Discuss fall prevention strategies [] Indicate moderate falls risk on eval [] Use high risk prevention interventions High = Score of 45 and higher [] Discuss fall prevention strategies [] Provide supervision during treatment time Goals prison goals Time Frame for hooker off goals : 5 weeks prison goal 1: Improve corey LE strength to 5/5 to improve stability with ambulation and stair negotiation. prison goal 2: Reduce pain to </= 3/10 with all stair negotiation and prolonged walking. hooker off goal 3: Pt will negotiate 4-6 stairs x3 without a HR with minimal to no knee deviations. hooker off goal 4: Pt will be able to squat with minimal to no knee deviations with decreased c/o pain. PT Individual Minutes Time In: 920 Time Out: 0950 Minutes: 29 Procedure Minutes:29' eval documented in this encounterMem[facility] HospitalReframe It Work Phone: [phone] History of Past illness Narrative* Problem Noted Date Diagnosed Date Resolved Date Gestational diabetes mellitus, 11/12/2011 01/15/2024 documented as of this encounter (statuses as of 01/16/2024) [facility] No data available for this section [facility] Evaluation + Plan note Future Appointments Appointment Date:12/06/2024 09:00:00 AM Scheduled Provider:KRISTYN BRIONES MD Location:[facility] Appointment Type:[facility] Evaluation + Plan note Future Appointments Appointment Date:01/17/2025 10:00:00 AM Scheduled Provider:KRISTYN BRIONES MD Location:[facility] Appointment Type:[facility] Evaluation note* Diagnosis Metatarsalgia of left foot- Primary Enthesopathy of ankle and tarsus, unspecified documented in this encounter [facility] Work Phone: evaluation note* Diagnosis Type 2 diabetes mellitus with hyperglycemia, with long-term current use of insulin (HCC)- Primary Wears glasses Other specified conditions influencing health status Primary hypertension Unspecified essential hypertension Iron deficiency anemia, unspecified iron deficiency anemia type Menorrhagia with regular cycle Excessive or frequent menstruation cardiomyopathy, Peripartum cardiomyopathy, Cerebrovascular accident (CVA) due to embolism of left middle cerebral artery (HCC) Chronic right shoulder pain Pain in joint, shoulder region Encounter for screening mammogram for malignant neoplasm of breast Other screening mammogram [facility]* Diagnosis Type 2 diabetes mellitus with hyperglycemia, with long-term current use of insulin (HCC)- Primary Obesity, Class II, BMI 35-39.9 Obesity, unspecified documented in this encounter [facility] note* Diagnosis Type 2 diabetes mellitus with hyperglycemia, with long-term current use of insulin (HCC) documented in this encounter [facility] note* Diagnosis Type 2 diabetes mellitus with hyperglycemia, with long-term current use of insulin (HCC) documented in this encounter [facility] note* Diagnosis Abnormal mammogram- Primary Abnormal mammogram, unspecified documented in this encounter [facility] note* Diagnosis Type 2 diabetes mellitus with hyperglycemia, with long-term current use of insulin (HCC)- Primary Obesity, Class II, BMI 35-39.9 Obesity, unspecified Depression screening Screening for depression documented in this encounter [facility] note* Diagnosis cardiomyopathy, - Primary Peripartum cardiomyopathy, Hyperlipidemia, unspecified hyperlipidemia type documented in [facility]* Diagnosis Dilated cardiomyopathy (HCC)- Primary Other primary cardiomyopathies documented [facility] this encounter [facility]* Diagnosis Onset Date Resolution Status Elevated d-dimer acute Hypokalemia acute Lightheadedness acute Non-STEMI (non-ST elevated myocardial infarction) acute [facility] Work Phone: Evaluation note* Diagnosis Dizziness- Primary Dizziness and giddiness documented in this encounter [facility]* Diagnosis Hyperlipidemia, unspecified hyperlipidemia type- Primary documented in this [facility]* Diagnosis Other ascites- Primary [facility] in [facility]* Diagnosis Other ascites- Primary Right upper quadrant abdominal mass Abdominal or pelvic swelling, mass, or lump, right upper quadrant Abnormal abdominal ultrasound Nonspecific (abnormal) findings on radiological and other examination of abdominal area, including retroperitoneum Intra-abdominal and pelvic swelling, mass and lump, unspecified site documented [facility] this encounter [facility]* Diagnosis Epigastric pain Abdominal pain, epigastric Other ascites [facility] this [facility]* Diagnosis Encounter for screening mammogram for malignant neoplasm of breast Other screening mammogram documented in this encounter [facility]* Diagnosis Intra-abdominal and pelvic swelling, mass and lump, unspecified site documented in this [facility]* Diagnosis Uterine leiomyoma, unspecified location- Primary Cyst of right ovary Other and unspecified ovarian cyst Liver lesion Other specified disorders of liver [facility] this encounter [facility]* Diagnosis Type 2 diabetes mellitus without complication, without long-term current use of insulin (HCC)- Primary Encounter for screening mammogram for breast cancer Chronic right shoulder pain Pain in joint, shoulder region Fatty liver Other chronic nonalcoholic liver disease documented in this encounter [facility]* Diagnosis Type 2 diabetes mellitus without complication, without long-term current use of insulin (HCC) documented in this [facility]* Diagnosis Chronic right shoulder pain Pain in joint, shoulder region documented in this [facility]* Diagnosis Lung nodule- Primary Solitary pulmonary nodule documented in this [facility]* Diagnosis Lung nodule Solitary pulmonary nodule [facility] Diagnosis Type 2 diabetes mellitus with hyperglycemia, with long-term current use of insulin (HCC) [facility]* Diagnosis Pain of left heel Pain in limb Nodule of skin of left foot [facility]* Diagnosis Well adult exam- Primary Routine general medical examination at a health care facility Type 2 diabetes mellitus with hyperglycemia, without long-term current use of insulin (HCC) History of embolic stroke Personal history of other disorders of nervous system and sense organs History of myocardial infarction Old myocardial infarction Encounter for screening mammogram for breast cancer History of cardiomyopathy Personal history of other diseases of circulatory system Pain of left heel Pain in limb Nodule of skin of left foot Screening for depression Screening for cervical cancer Screening for malignant neoplasm of the cervix Encounter for screening examination for other mental health and behavioral disorders Pain of left heel Pain in limb Nodule of skin of left foot [facility]* Diagnosis Plantar fasciitis- Primary Plantar fascial fibromatosis Pain of left heel Pain in limb [facility] Pain of left heel- Primary Pain in limb Plantar fasciitis Plantar fascial fibromatosis [facility]* Diagnosis Type 2 diabetes mellitus with hyperglycemia, without long-term current use of insulin (HCC)- Primary Cardiomyopathy, unspecified type (HCC) Essential (primary) hypertension Unspecified essential hypertension Dyslipidemia Other and unspecified hyperlipidemia Plantar fasciitis of left foot Plantar fascial fibromatosis Presence of intrauterine contraceptive device Encounter for screening mammogram for breast cancer [facility] Diagnosis Pain of left heel Pain in limb Plantar fasciitis Plantar fascial fibromatosis [facility]* Diagnosis Plantar fasciitis- Primary Plantar fascial fibromatosis [facility]* Diagnosis Plantar fasciitis- Primary Plantar fascial fibromatosis Pain of left heel Pain in limb [facility]* Diagnosis Uterine leiomyoma, unspecified location- Primary Type 2 diabetes mellitus with hyperglycemia, with long-term current use of insulin (HCC) Cyst of right ovary Other and unspecified ovarian cyst [facility]* Diagnosis Onset Date Resolution Status Admit Date Peripartum cardiomyopathy, antepartum condition or complication acute June 20, 2025 8:06am HTN (hypertension) chronic May 302024 8:06am [facility] Work Phone: Hospital Discharge instructions* Attachments The following attachments cannot be sent through Care Everywhere. * Metatarsalgia ([place] African) [facility] Work Phone: Hospital Discharge instructions No data available for this section [facility] Progress note No data available for this section [facility] Reason for referral (narrative)* Diagnostic Procedure Only (Routine) - Pending Review Specialty Diagnoses / Procedures Referred By Kai loyola Referred To Contact [facility] Diagnoses Abnormal mammogram Procedures US BREAST LTD LEFT US BREAST UNI REAL TIME WITH IMAGE LIMITED Garry Rodriguez APRN.CNP [address] [place] [address] [facility] [employer] [place] [id number] Referral ID Status Reason Start Date Expiration Date Visits Requested Visits Authorized [id number] Pending Review Auto-Generat ed Referral 02/25/2023 03/26/2024 1 1 * Diagnostic Procedure Only (Routine) - Pending Review Specialty Diagnoses / Procedures Referred By Kai loyola Referred To Contact [facility] Diagnoses Abnormal mammogram Procedures EB DIAGNOSTIC LEFT DIAGNOSTIC MAMMOGRAPHY COMPUTER-AIDED DETCJ UNI Garry Rodriguez APRN.CNP [address] [place] [address] [facility] [address] [place] [address] Referral ID Status Reason Start Date Expiration Date Visits Requested Visits Authorized [id number] Pending Review Auto-Generat ed Referral 02/25/2023 03/26/2024 1 1 [facility] Outpatient Procedure (Routine) - Pending Review Specialty Diagnoses / Procedures Referred By Contac t Referred To [facility] Diagnoses Peripartum cardiomyopathy, Hyperlipidemia, unspecified hyperlipidemia type Procedures ECHO ECHO TTHRC R-T 2D W/WOM-MODE COMPL SPEC&COLR D Tone Espino MD [address], [place] [address] [place], [place] [address] [facility] [place] [address] [place] [address] Referral ID Status Reason Start Date Expiration Date Visits Requested Visits Authorized [id number] Pending Review Auto-Generat ed Referral 05/05/2023 05/04/2024 1 1 [facility] for referral (narrative)* Diagnostic Procedure Only (Routine) - Authorized Specialty Diagnoses / Procedures Referred By Contac t Referred To Contact US IMAGING Diagnoses Other ascites Procedures US ABDOMEN COMPLETE US ABDOMINAL REAL TIME W/IMAGE DOCUMENTATION Garry Rodriguez APRN.ECONOMIC DEVELOPMENT COORDINATOR [address] [place] [address] [place] [address] Referral ID Status Reason Start Date Expiration Date Visits Requested Visits Authorized [id number] Authorized Auto-Generat ed Referral 10/12/2024 1 1 [facility] for referral (narrative)* Diagnostic Procedure Only (Routine) - Closed Specialty Diagnoses / Procedures Referred By Contac t Referred To Contact US IMAGING Diagnoses Epigastric pain Procedures US ABD RIGHT UPPER QUADRANT US ABDOMINAL REAL TIME W/IMAGE LIMITED Garry Rodriguez APRN.ECONOMIC DEVELOPMENT COORDINATOR [address] [place] [address] [place] [address] Referral ID Status Reason Start Date Expiration Date V isits Requested Visits Authorized [id number] Closed Auto-Generate d Referral 08/20/2023 09/18/2024 1 1 [facility] for referral (narrative)* Diagnostic Procedure Only (Routine) - Closed Specialty Diagnoses / Procedures Referred By Peterac t Referred To Contact BR IMAGING Diagnoses Encounter for screening mammogram for malignant neoplasm of breast Procedures EB SCREENING SCREENING MAMMOGRAPHY BI 2-VIEW BREAST INC CAD Garry Rodriguez APRN.CNP [address] [place] [address] Br Imaging [address] [place] [address] Referral ID Status Reason Start Date Expiration Date V isits Requested Visits Authorized [id number] Closed Auto-Generate d Referral 02/17/2023 03/18/2024 1 1 [facility] for referral (narrative)* Diagnostic Procedure Only (Routine) - Closed Specialty Diagnoses / Procedures Referred By Kai t Referred To Contact XR IMAGING Diagnoses Chronic right shoulder pain Procedures XR SHOULDER GENERAL 3V OR MORE AP/TRUE AP/OTHER RIGHT RADEX SHOULDER COMPLETE MINIMUM 2 VIEWS Garry Rodriguez APRN.ECONOMIC DEVELOPMENT COORDINATOR [address] [place] [address] [place] [address] Referral ID Status Reason Start Date Expiration Date V isits Requested Visits Authorized [id number] Closed Auto-Generate d Referral 02/17/2023 03/18/2024 1 1 [facility] for referral (narrative)No reason for referral [facility] Work Phone: Reason for visit Narrative* Diagnostic Procedure Only (Routine) - Closed Specialty Diagnoses / Procedures Referred By Peterac t Referred To Contact US IMAGING Diagnoses Epigastric pain Procedures US ABD RIGHT UPPER QUADRANT US ABDOMINAL REAL TIME W/IMAGE LIMITED Garry Rodriguez APRN.CNP [address] [place] [address] [place] [address] Referral ID Status Reason Start Date Expiration Date V isits Requested Visits Authorized [id number] Closed Auto-Generate d Referral 08/20/2023 09/18/2024 1 1 [facility] for visit Narrative* Diagnostic Procedure Only (Routine) - Closed Specialty Diagnoses / Procedures Referred By Kai t Referred To Contact BR IMAGING Diagnoses Encounter for screening mammogram for malignant neoplasm of breast Procedures EB SCREENING SCREENING MAMMOGRAPHY BI 2-VIEW BREAST INC CAD Garry Rodriguez, CELL OPERATION SUPERVISOR.ECONOMIC DEVELOPMENT COORDINATOR [address] [place] [address] Br Imaging [address] [place] [address] Referral ID Status Reason Start Date Expiration Date V isits Requested Visits Authorized [id number] Closed Auto-Generate d Referral 02/17/2023 03/18/2024 1 1 [facility] for visit Narrative* Diagnostic Procedure Only (Routine) - Closed Specialty Diagnoses / Procedures Referred By Kai t Referred To Contact XR IMAGING Diagnoses Chronic right shoulder pain Procedures XR SHOULDER GENERAL 3V OR MORE AP/TRUE AP/OTHER RIGHT RADEX SHOULDER COMPLETE MINIMUM 2 VIEWS Garry Rodriguez, CELL OPERATION SUPERVISOR.ECONOMIC DEVELOPMENT COORDINATOR [address] [place] [address] [place] [address] Referral ID Status Reason Start Date Expiration Date V isits Requested Visits Authorized [id number] Closed Auto-Generate d Referral 02/17/2023 03/18/2024 1 1 [facility] for visit Narrative* Diagnostic Procedure Only (Routine) - Closed Specialty Diagnoses / Procedures Referred By Kai t Referred To Contact XR IMAGING Diagnoses Pain of left heel Nodule of skin of left foot Procedures XR FOOT GENERAL 3V AP/LAT/OBL LEFT RADEX FOOT COMPLETE MINIMUM 3 VIEWS Garry Rodriguez, CELL OPERATION SUPERVISOR.ECONOMIC DEVELOPMENT COORDINATOR [address] [place] [address] [place] [address] Referral ID Status Reason Start Date Expiration Date V isits Requested Visits Authorized [id number] Closed Auto-Generate d Referral 12/06/2024 01/05/2026 1 1 [facility] Summary Purpose Family History Relationship Condition Age at Onset Recorded Date/T dayanna mother Diabetes mellitus Unknown Hypertension Unknown father Diabetes mellitus Unknown Advance Directives Documents on File Type Date Recorded Patient [employer] Tester Expl anation Advance Directives and Living Will Power of Refuse Driver Documents on File Type Date Recorded Patient [employer] Tester Expl anation ACP-Advance Directive ACP-Power of Refuse Driver Documents on File Type Date Recorded 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 Outpatient Physical Therapy Treatment Note Date: 01/02/2020 Patient: Patt Crane : 1980 Referring Practitioner: Ama Bell PA-C Diagnosis: Acute pain of Lt knee Visit Information: PT Visit Information PT Insurance Information: [facility] Total # of Visits Approved: 30 Total # of Visits to Date: 3 No Show: 1 Canceled Appointment: 1 Progress Note Counter: 01/31 Subjective: Pt reports no change in pain since LV. Reports continued clicking in Lt knee. Pt reports compliance with HEP in 4 week absence from therapy. Pt reports pain 8/10 at worst in last 5 days with stairs at work. Comments: Pt >10 min late for tx. HEP Compliance: [x] Good [] Fair [] Poor [] Reports not doing due to: Vital Signs Patient Currently in Pain: Yes Pain Screening Patient Currently in Pain: Yes Pain Assessment Pain Assessment: 0-10 Pain Level: 4 Pain Location: Knee Pain Orientation: Left;Right Pain Descriptors: Aching OBJECTIVE: Exercises Exercise 1: Nustep L-3 x 5min for strength and endurance Exercise 3: 4 way hip YTB x12 b/l Exercise 4: Monster walks RTB F/L 25 ft x 4 ea Exercise 5: Lunges F/L onto bosu ball x15 b/l Exercise 6: Step ups F only d/t time 6 in x15 b/l Exercise 8: Sm rockerboard 3-way x15 Exercise 9: TG L-10 squats with RTB around knees 3 sec x 15 Exercise 20: HEP: 4 way hip Stairs # Steps : 12 Stairs Height: 6 Rails: None Device: No Device Assistance: Independent Comment: Mild Rt knee valgus with descending though without deviations otherwise Modalities: Modalities Cryotherapy (Minutes\Location): Pt declined *Indicates exercise, modality, or manual techniques to be initiated when appropriate Assessment: Body structures, Functions, Activity limitations: Decreased functional mobility , Decreased strength, Decreased endurance, Increased pain Assessment: Pt reports fatigue with TG squats. Denies increased pain during activity. Demonstrates good technique with 4 way hip with minimal cues. Added 4 way hip to HEP to progress. Pt reports increased Lt knee pain post tx. Declined modalities for pain management post tx. Treatment Diagnosis: Corey knee pain Prognosis: Good Goals: prison goals Time Frame for prison goals : 5 weeks prison goal 1: Improve corey LE strength to 5/5 to improve stability with ambulation and stair negotiation. hooker off goal 2: Reduce pain to </= 3/10 with all stair negotiation and prolonged walking. hooker off goal 3: Pt will negotiate 4-6 stairs x3 without a HR with minimal to no knee deviations. hooker off goal 4: Pt will be able to squat with minimal to no knee deviations with decreased c/o pain. Progress toward goals: progressing towards all POST-PAIN Pain Rating (0-10 pain scale): 7 /10 Lt knee only Location and pain description same as pre-treatment unless indicated. Action: [] NA [x] Perform HEP [] Meds as prescribed [] Modalities as prescribed [] Call Physician Frequency/Duration: Plan Times per week: 1 Plan weeks: 5 Current Treatment Recommendations: Strengthening, ROM, Functional Mobility Training, Gait Training,Stair training, Neuromuscular Re-education, Manual Therapy - Soft Tissue Mobilization, Home Exercise Program, Safety Education & Training, Patient/Caregiver Education & Training, Equipment Evaluation, Education, & procurement, Modalities, Integrated Dry Needling Plan Comment: Transfer care to [place] PT Pt to continue current HEP. See objective section for any therapeutic exercise changes, additions or modifications this date. PT Individual Minutes Time In: 0934 Time Out: 1004 Minutes: 30 Timed Code Treatment Minutes: 30 Minutes Procedure Minutes: 0 Timed Activity Minutes Units Ther Ex 30 2 Signature: documented in this encounter* Jian Kam PTA - 01/09/2020 11:20 AM EST [facility] Cancellation/No-show Note Patient Name: Patt Crane : 1980 Date: 01/09/2020 Referring Practitioner: Ama Bell PA-C Diagnosis: Acute pain of Lt knee Visit Information: PT Visit Information PT Insurance Information: [employer] Total # of Visits Approved: 30 Total # of Visits to Date: 3 No Show: 2 Canceled Appointment: 2 Progress Note Counter: 01/31 (ns on 01/09/20) For today's appointment patient: [] Cancelled [] Rescheduled appointment [x] No-show [x] Called pt to remind of next appointment Reason given by patient: [] Patient ill [] Conflicting appointment [] No transportation [] Conflict with work [] No reason given [] Other: Comments: Called and left VM informing pt of attendance policy. Pt to be d/c'd if cx/ns NV. Signature: documented in this encounter Reason for Referral Status Reason Specialty Diagnoses / Procedures Referred By Contact Referred To Contact Pending Review Radiology Diagnoses Menorrhagia with regular cycle Procedures US NON OB TRANSVAGINAL Mike Tovar DO [address] [address] Status Reason Specialty Diagnoses / Procedures Referre d By Contact Referred To Contact Closed Radiology Diagnoses Menorrhagia with regular cycle Procedures US PELVIS COMPLETE Mike Tovar DO [address] [facility] [address] [place] [id number] Specialty Diagnoses / Procedures Referred By Kai t Referred To Contact [facility] Diagnoses Chronic right shoulder pain Procedures CONSULT TO PHYSICAL THERAPY PHYSICAL THERAPY EVALUATION HIGH COMPLEX 45 MINS Garry Rodriguez APRN.ECONOMIC DEVELOPMENT COORDINATOR [address] [place] [address] [facility] [place] [address] [place] [address] Referral ID Status Reason Start Date Expiration Date Visits Requested Visits Authorized [id number] Pending Review Auto-Generat ed Referral 02/18/2023 02/18/2024 1 1 Specialty Diagnoses / Procedures Referred By Contac t Referred To Contact Garry Rodriguez APRN.ECONOMIC DEVELOPMENT COORDINATOR [address] [place] [address] Referral ID Status Reason Start Date Expiration Date Visits Re quested Visits Authorized [id number] Closed 1 1 Specialty Diagnoses / Procedures Referred By Contac t Referred To Contact XR IMAGING Diagnoses Chronic right shoulder pain Procedures XR SHOULDER GENERAL 3V OR MORE AP/TRUE AP/OTHER RIGHT RADEX SHOULDER COMPLETE MINIMUM 2 VIEWS Garry Rodriguez APRN.ECONOMIC DEVELOPMENT COORDINATOR [address] [place] [address] Xr Imaging Referral ID Status Reason Start Date Expiration Date Visits Requested Visits Authorized [id number] Pending Review Auto-Generat ed Referral 02/17/2023 03/18/2024 1 1 Specialty Diagnoses / Procedures Referred By Contac t Referred To Contact Neurology / [facility] Department Diagnoses Cerebrovascular accident (CVA) due to embolism of left middle cerebral artery (HCC) Procedures CONSULT TO NEUROLOGY OFFICE/OUTPATIENT [facility] MDM 60-74 MINUTES Garry Rodriguez APRN.ECONOMIC DEVELOPMENT COORDINATOR [address] [place] [address] Leti Cox MD Referral ID Status Reason Start Date Expiration Date Visits Requested Visits Authorized [id number] Authorized PCP Requested Referral 02/17/2023 02/17/2024 1 1 Specialty Diagnoses / Procedures Referred By Contac t Referred To Contact Cardiology Diagnoses Primary hypertension Peripartum cardiomyopathy, Procedures CONSULT TO CARDIOLOGY OFFICE/OUTPATIENT NEW [facility] MDM 60-74 MINUTES Garry Rodriguez APRN.ECONOMIC DEVELOPMENT COORDINATOR [address] [place] [address] Johnna Lennon MD [address] [place] [address] Referral ID Status Reason Start Date Expiration Date Visits Requested Visits Authorized [id number] Authorized PCP Requested Referral 02/17/2023 02/17/2024 1 1 Specialty Diagnoses / Procedures Referred By Contac t Referred To Contact [facility] Department Diagnoses Type 2 diabetes mellitus with hyperglycemia, with long-term current use of insulin (HCC) Wears glasses Procedures CONSULT TO OPHTHALMOLOGY OFFICE/OUTPATIENT [facility] MDM 60-74 MINUTES Garry Rodriguez APRN.ECONOMIC DEVELOPMENT COORDINATOR [address] [place] [address] [facility] Referral ID Status Reason Start Date Expiration Date Visits Requested Visits Authorized [id number] Authorized PCP Requested Referral 02/17/2023 02/17/2024 1 1 Specialty Diagnoses / Procedures Referred By Contac t Referred To Contact URGENT CARE / [facility] Department Diagnoses Menorrhagia with regular cycle Procedures CONSULT TO URGENT CARE OFFICE/OUTPATIENT [facility] MDM 60-74 MINUTES Garry Rodriguez APRN.ECONOMIC DEVELOPMENT COORDINATOR [address] [place] [address] [facility] Referral ID Status Reason Start Date Expiration Date Visits Requested Visits Authorized [id number] Authorized PCP Requested Referral Auto-Generate d Referral 02/17/2023 02/17/2024 1 1 Specialty Diagnoses / Procedures Referred By Contac t Referred To Contact BR IMAGING Diagnoses Encounter for screening mammogram for malignant neoplasm of breast Procedures EB SCREENING SCREENING MAMMOGRAPHY BI 2-VIEW BREAST INC CAD Garry Rodriguez CELL OPERATION SUPERVISOR.ECONOMIC DEVELOPMENT COORDINATOR [address] [place] [address] [facility] [address] [place] [address] Referral ID Status Reason Start Date Expiration Date Visits Requested Visits Authorized [id number] Pending Review Auto-Generat ed Referral 02/17/2023 03/18/2024 1 1 Specialty Diagnoses / Procedures Referred By Contac t Referred To Contact CT IMAGING Diagnoses Intra-abdominal and pelvic swelling, mass and lump, unspecified site Procedures CT ABD/PEL W IVCON CT ABD & PELVIS W/CONTRAST Garry Rodriguez, CELL OPERATION SUPERVISOR.ECONOMIC DEVELOPMENT COORDINATOR [address] [place] [address] [address] [place] [address] Referral ID Status Reason Start Date Expiration Date Visits Requested Visits Authorized [id number] Pending Review Auto-Generat ed Referral 10/15/2024 1 1 Referral ID Status Reason Start Date Expiration Date V isits Requested Visits Authorized [id number] Closed Auto-Generate d Referral 09/18/2023 11/17/2023 1 1 Specialty Diagnoses / Procedures Referred By Contac t Referred To Contact MR IMAGING Diagnoses Liver lesion Procedures MRI LIVER WO/W IVCON MRI ABDOMEN W/O & W/CONTRAST MATERIAL Garry Rodriguez, CELL OPERATION SUPERVISOR.ECONOMIC DEVELOPMENT COORDINATOR [address] [place] [address] Mr Imaging [facility] Referral ID Status Reason Start Date Expiration Date Visits Requested Visits Authorized [id number] Pending Review Auto-Generat ed Referral 10/06/2023 11/04/2024 1 1 Referral ID Status Reason Start Date Expiration Date Visits Requested Visits Authorized [id number] Pending Review Auto-Generat ed Referral 01/12/2024 01/11/2025 1 1 Specialty Diagnoses / Procedures Referred By Contac t Referred To Contact BR IMAGING Diagnoses Encounter for screening mammogram for breast cancer Procedures EB SCREENING SCREENING MAMMOGRAPHY BI 2-VIEW BREAST INC CAD Garry Rodriguez, CELL OPERATION SUPERVISOR.ECONOMIC DEVELOPMENT COORDINATOR [address] [place] [address] [facility] [address] [place] [address] Referral ID Status Reason Start Date Expiration Date Visits Requested Visits Authorized [id number] Pending Review Auto-Generat ed Referral 01/12/2024 02/10/2025 1 1 Specialty Diagnoses / Procedures Referred By Contac t Referred To Contact CT IMAGING Diagnoses Lung nodule Procedures CT CHEST WO IVCON DIAGNOSTIC COMPUTED TOMOGRAPHY THORAX W/O CNTRST Garry Rodriguez, CELL OPERATION SUPERVISOR.ECONOMIC DEVELOPMENT COORDINATOR [address] [place] [address] [address] [place] [address] Referral ID Status Reason Start Date Expiration Date Visits Requested Visits Authorized [id number] New Request Auto-Generat ed Referral 11/08/2025 1 1 Specialty Diagnoses / Procedures Referred By Contac t Referred To Contact Podiatry / [facility] DEPARTMENT Diagnoses Pain of left heel Nodule of skin of left foot Procedures CONSULT TO PODIATRY OFFICE/OUTPATIENT [facility] 60 MINUTES Garry Rodriguez, CELL OPERATION SUPERVISOR.ECONOMIC DEVELOPMENT COORDINATOR [address] [place] [address] Emilia Griffiths [address] [address] Referral ID Status Reason Start Date Expiration Date Visits Requested Visits Authorized [id number] Authorized PCP Requested Referral 12/06/2024 12/06/2025 1 1 Specialty Diagnoses / Procedures Referred By Contac t Referred To Contact XR IMAGING Diagnoses Pain of left heel Nodule of skin of left foot Procedures XR FOOT GENERAL 3V AP/LAT/OBL LEFT RADEX FOOT COMPLETE MINIMUM 3 VIEWS Garry Rodriguez, CELL OPERATION SUPERVISOR.ECONOMIC DEVELOPMENT COORDINATOR [address] [place] [address] [place] [address] Referral ID Status Reason Start Date Expiration Date V isits Requested Visits Authorized [id number] Closed Auto-Generate d Referral 12/06/2024 01/05/2026 1 1 Specialty Diagnoses / Procedures Referred By Contac t Referred To Contact [facility]blaster / [facility] DEPARTMENT Diagnoses Screening for cervical cancer Procedures CONSULT TO URGENT CARE OFFICE/OUTPATIENT [facility] MDM 60 MINUTES Garry Rodriguez, CELL OPERATION SUPERVISOR.ECONOMIC DEVELOPMENT COORDINATOR [address] [place] [address] Zeina Dasilva MD [address] [place] [address] Referral ID Status Reason Start Date Expiration Date Visits Requested Visits Authorized [id number] Authorized PCP Requested Referral Auto-Generate d Referral 12/06/2024 12/06/2025 1 1 Specialty Diagnoses / Procedures Referred By Kai t Referred To Contact Diagnoses Type 2 diabetes mellitus with hyperglycemia, without long-term current use of insulin (HCC) Garry Rodriguez APRN.ORLANOD [address] [place] [address] Referral ID Status Reason Start Date Expiration Date Visits Re quested Visits Authorized [id number] Denied 1 1 Specialty Diagnoses / Procedures Referred By Kai loyola Referred To Contact BR IMAGING Diagnoses Encounter for screening mammogram for breast cancer Procedures EB SCREENING W LINDEN SCREENING DIGITAL BREAST TOMOSYNTHESIS BI SCREENING MAMMOGRAPHY BI 2-VIEW BREAST INC CAD Garry Rodriguez, SHIRLENE.ECONOMIC DEVELOPMENT COORDINATOR [address] [place] [address] [facility] Imaging [address] [place] [address] Referral ID Status Reason Start Date Expiration Date Visits Requested Visits Authorized [id number] New Request Auto-Generat ed Referral 12/06/2024 01/05/2026 1 1 Assessments Diagnosis Menorrhagia with regular cycle Excessive or frequent menstruation Chief Complaint and Reason for Visit Chief Complaint NON-STEMI Reason for Visit Elevated d-dimer Hypokalemia Lightheadedness Non-STEMI (non-ST elevated myocardial infarction) Chief Complaint NON-STEMI NON-STEMI NON-STEMI NON-STEMI Reason for Visit Elevated d-dimer Hypokalemia Lightheadedness Non-STEMI (non-ST elevated myocardial infarction) Peripartum cardiomyopathy, antepartum condition or complication HTN (hypertension) Chief Complaint NON-STEMI NON-STEMI NON-STEMI NON-STEMI S/P PCU 08/12/23 E-ORDER Reason for Visit Elevated d-dimer Hypokalemia Lightheadedness Non-STEMI (non-ST elevated myocardial infarction) Peripartum cardiomyopathy, antepartum condition or complication HTN (hypertension) Idiopathic cardiomyopathy Peripartum cardiomyopathy, antepartum condition or complication HTN (hypertension) Chief Complaint Admit Date 6 M FU June 20, 2025 8:06 am Reason for Visit Admit Date Peripartum cardiomyopathy, a ntepartum condition or complication June 20, 2025 8:06am HTN (hypertension) June 20, 2025 8:06 am Additional Source Comments INFORMATION SOURCE (unrecogn ized section and content) DATE CREATED AUTHOR 05/25/[address] [facility] DATE CREATED AUTHOR AUTHOR'S ORGANIZ ATION 05/25/2018 [facility] DATE CREATED AUTHOR AUTHOR'S ORGANIZ ATION [facility]21 [facility] DATE CREATED AUTHOR AUTHOR'S ORGANIZ ATION 08/21/2021 [facility] DATE CREATED AUTHOR AUTHOR'S ORGANIZ ATION 07/11/2022 [facility] DATE CREATED AUTHOR AUTHOR'S ORGANIZ ATION 05/24/2024 [facility] DATE CREATED AUTHOR AUTHOR'S ORGANIZ ATION 12/16/2024 [facility] DATE CREATED AUTHOR AUTHOR'S ORGANIZ ATION 05/18/2025 [facility] DATE CREATED AUTHOR AUTHOR'S ORGANIZ ATION 06/01/2025 [facility] DATE CREATED AUTHOR AUTHOR'S ORGANIZ ATION 06/21/2025 [facility] Reason for Visit (unrecogniz ed section and content) Reason Comments PT Progress Note Specialty Diagnoses / Procedures Referred By Contac t Referred To Contact [facility] Diagnoses Pain of left heel Plantar fasciitis Procedures CONSULT TO PHYSICAL THERAPY PHYSICAL THERAPY EVALUATION HIGH COMPLEX 45 MINS Emilia Griffiths [address] [place] [address] Phone: tel: fax: [facility] [address] [place] [address] Referral ID Status Reason Start Date Expiration Date Visits Requested Visits Authorized [id number] Authorized Auto-Generat ed Referral 11/29/2024 11/28/2025 [address] Specialty Diagnoses / Procedures Referred By Contac t Referred To Contact CT IMAGING Diagnoses Intra-abdominal and pelvic swelling, mass and lump, unspecified site Procedures CT ABD/PEL W IVCON CT ABD & PELVIS W/CONTRAST Garry Rodriguez, CELL OPERATION SUPERVISOR.ECONOMIC DEVELOPMENT COORDINATOR [address] [place] [address] [place] [address] Referral ID Status Reason Start Date Expiration Date V isits Requested Visits Authorized [id number] Closed Auto-Generate d Referral 09/18/2023 11/17/2023 1 1 Status Reason Specialty Diagnoses / Procedures Referre d By Contact Referred To Contact Closed Radiology Diagnoses Menorrhagia with regular cycle Procedures US PELVIS COMPLETE Mike Tovar, DO [address] [facility] [address] [place] [address] Specialty Diagnoses / Procedures Referred By Contbarbara t Referred To Contact Dietitian Diagnoses Type 2 diabetes mellitus with hyperglycemia, with long-term current use of insulin (HCC) Class 2 severe obesity due to excess calories with serious comorbidity and body mass index (BMI) of 37.0 to 37.9 in adult (HCC) Cardiomyopathy, peripartum, Dyslipidemia Essential hypertension Ama Bell PA-C [address] [place] [address] [facility] [address] [place] [address] Referral ID Status Reason Start Date Expiration Date V isits Requested Visits Authorized [id number] Open Specialty Services Required 11/27/2021 11/27/2022 1 1 Status Reason Specialty Diagnoses / Procedures Referred By Contact Referred To Contact Authorized Specialty Services Required Physical Therapy Diagnoses Acute pain of left knee Procedures 30 visits each discipline calendar year @ 100% medicaid allowed amount Effective 07/30/14 no term date Ama Bell PA-C [address] [place] [address] [place] [address] [place] [address] Reason Comments Foot Pain Pt c/o R foot pain s nyla this AM; denies injury, or trauma Specialty Diagnoses / Procedures Referred By Kai loyola Referred To Contact [facility] [address] [place] [address] [facility] [address] [place] [address] Referral ID Status Reason Start Date Expiration Date Visits Re quested Visits Authorized [id number] 1 1 Reason Comments Establish Care Diabetes Alc done 10 on 023 . Wants ozempic Pain (Shoulder Pain) Right shoulder and arm pain x 6 months. Reason Comments Medication Problem Reason Comments Patient Update Prior auth on ozempi c Reason Onset Date Comments Refill Request 02/25/2023 Reason Comments Results X-Ray Reason Comments Results Mammogram Reason Comments Medication Problem PRIOR AUTH DONE ON O ZEMPIC Reason Comments Diabetes Cant get in to see e ndo., next apt. Is sept. Reason Comments Cardiology Follow Up Primary hypertensio n; peripartum cardiomyopathy Reason Comments Results Reason Comments Patient Question Results Reason Comments Results CT A/P Reason Comments Results CT abd/pel results Reason Comments Diabetes Reason Comments Medication Dosage Adjustment Trulicity Reason Comments Orders Reason Comments Radiology CT Specialty Diagnoses / Procedures Referred By Kai t Referred To Contact CT IMAGING Diagnoses Lung nodule Procedures CT CHEST WO IVCON DIAGNOSTIC COMPUTED TOMOGRAPHY THORAX W/O CNTRST Garry Rodriguez, CELL OPERATION SUPERVISOR.ECONOMIC DEVELOPMENT COORDINATOR [address] [place] [address] [facility] [place] [address] Referral ID Status Reason Start Date Expiration Date V isits Requested Visits Authorized [id number] Closed Auto-Generate d Referral 10/23/2024 12/22/2024 1 1 Reason Onset Date Comments Refill Request 12/04/2024 Reason Comments Electronic Communication Ozempic denied Reason Comments Wellness Reason Comments New Pain Specialty Diagnoses / Procedures Referred By Kai loyola Referred To Contact Podiatry / [facility] DEPARTMENT Diagnoses Pain of left heel Nodule of skin of left foot Procedures CONSULT TO PODIATRY OFFICE/OUTPATIENT NEW HIGH MDM 60 MINUTES Garry Rodriguez, CELL OPERATION SUPERVISOR.ECONOMIC DEVELOPMENT COORDINATOR [address] [place] [address] Phone: tel: fax: Emilia Griffiths [phone] [address] Phone: tel: fax: Referral ID Status Reason Start Date Expiration Date V isits Requested Visits Authorized [id number] Closed PCP Requested Referral 12/06/2024 12/06/2025 1 1 Reason Comments Pain Established Patient Follow Up Numbness Reason Onset Date Comments Results 04/04/2025 Reason Comments Diabetes Reason Comments PT Eval Reason Comments Established Patient Follow Up Pain Reason Onset Date Comments Refill Request 06/26/2025 Reason Onset Date Comments Refill Request 06/28/2025 <item> Privacy Markings (unrecogniz ed section and content) Section Author: Geena Ross PROHIBITION ON REDISCLOSURE OF CONFIDENTIAL INFORMATION This notice accompanies a disclosure of information concerning a client made to you with the consent of such client. Care Teams (unrecognized sec tion and content) Lining Caser Relationship Specialty Start Date End Date Ama Bell PA-C PCP - General Physician Highway Commissioner 08/05/17 Lining Caser Relationship Specialty Start Date End Date Ama Bell PA-C PCP - General Physician Highway Commissioner 08/05/17 Lining Caser Relationship Specialty Start Date End Date Garry Rodriguez APRN.ECONOMIC DEVELOPMENT COORDINATOR [address] [place] [address] PCP - General Family Medicine 02/17/23 Lining Caser Relationship Specialty Start Date End Date Garry Rodriguez CELL OPERATION SUPERVISOR.ECONOMIC DEVELOPMENT COORDINATOR [address] [place] [address] PCP - General Family Medicine 02/17/23 Lining Caser Relationship Specialty Start Date End Date Garry Rodriguez APRN.ECONOMIC DEVELOPMENT COORDINATOR [address] [place] [address] PCP - General Family Medicine 02/17/23 Lining Caser Relationship Specialty Start Date End Date Garry Rodriguez APRN.ECONOMIC DEVELOPMENT COORDINATOR [address] [place] [address] PCP - General Family Medicine 02/17/23 Lining Caser Relationship Specialty Start Date End Date Garry Rodriguez CELL OPERATION SUPERVISOR.ECONOMIC DEVELOPMENT COORDINATOR [address] [place] [address] PCP - General Family Medicine 02/17/23 Lining Caser Relationship Specialty Start Date End Date Garry Rodriguez CELL OPERATION SUPERVISOR.ECONOMIC DEVELOPMENT COORDINATOR [address] [place] [address] PCP - General Family Medicine 02/17/23 Lining Caser Relationship Specialty Start Date End Date Garry Rodriguez CELL OPERATION SUPERVISOR.ECONOMIC DEVELOPMENT COORDINATOR [address] [place] [address] PCP - General Family Medicine 02/17/23 Lining Caser Relationship Specialty Start Date End Date Garry Rodriguez CELL OPERATION SUPERVISOR.ECONOMIC DEVELOPMENT COORDINATOR [address] [place] [address] PCP - General Family Medicine 02/17/23 Lining Caser Relationship Specialty Start Date End Date Garry Rodriguez CELL OPERATION SUPERVISOR.ECONOMIC DEVELOPMENT COORDINATOR [address] [place] [address] PCP - General Family Medicine 02/17/23 Lining Caser Relationship Specialty Start Date End Date Garry Rodriguez CELL OPERATION SUPERVISOR.ECONOMIC DEVELOPMENT COORDINATOR [address] [place] [address] PCP - General Family Medicine 02/17/23 Lining Caser Relationship Specialty Start Date End Date Garry Rodriguez APRN.ECONOMIC DEVELOPMENT COORDINATOR [address] [facility] [place] [address] PCP - General Family Medicine 02/17/23 Team Status: Active Member Role Status Dates Garry Rodriguez CARD SCRAPER, CARD SCRAPER-C Primary Care Provider Active Team Status: Active Member Role Status Dates Placido Pena MD Emergency Provider Active Garry Rodriguez CARD SCRAPER, CARD SCRAPER-C Primary Care Provider Active Dr. Ha Echevarria MD Admit Provider, Attending Pro vider Active Lining Caser Relationship Specialty Start Date End Date Garry Rodriguez, CELL OPERATION SUPERVISOR.ECONOMIC DEVELOPMENT COORDINATOR [address] [place] [address] PCP - General Family Medicine 02/17/23 Team Status: Active Member Role Status Michela Pena MD Emergency Provider Active Garry Rodriguez CARD SCRAPER, CARD SCRAPER-C Primary Care Provider Active Dr. Ha Echevarria MD Admit Provider, Attending Provider, Other Provider Active Dr. Damian Blanco MD Other Provider Active Team Status: Active Member Role Status Michela Pena MD Emergency Provider Active Garry Rodriguez CARD SCRAPER, CARD SCRAPER-C Primary Care Provider Active Dr. Ha Echevarria MD Admit Provider, Other Provide r Active Dr. Damian Blanco MD Attending Provider, Other Provide r Active Dr. Aj Colon MD Other Provider Active Team Status: Active Member Role Status Michela Pena MD Emergency Provider Active Garry Rodriguez CARD SCRAPER, CARD SCRAPER-C Primary Care Provider Active Dr. Ha Echevarria MD Admit Provider, Other Provide r Active Dr. Damian Blanco MD Other Provider Active Dr. Aj Colon MD Attending Provider, Other Provider Active Team Status: Inactive Member Role Status Michela Pena MD Emergency Provider Active Garry Rodriguez CARD SCRAPER, CARD SCRAPER-C Primary Care Provider Active Dr. Ha Echevarria MD Admit Provider, Other Provide r Active Dr. Damian Blanco MD Other Provider Active Dr. Aj Colon MD Attending Provider Active Lining Caser Relationship Specialty Start Date End Date Julio C Rodriguezarianna Momin, CELL OPERATION SUPERVISOR.ECONOMIC DEVELOPMENT COORDINATOR [address] [place] [address] PCP - General Family Medicine 02/17/23 Lining Caser Relationship Specialty Start Date End Date Julio C Rodriguezarianna Momin, CELL OPERATION SUPERVISOR.ECONOMIC DEVELOPMENT COORDINATOR [address] [facility] [place] [address] PCP - General Family Medicine 02/17/23 Lining Caser Relationship Specialty Start Date End Date Garry Rodriguez, CELL OPERATION SUPERVISOR.ECONOMIC DEVELOPMENT COORDINATOR [address], [place] [id number] PCP - General Family Medicine 02/17/23 Team Status: Inactive Member Role Status Dates Garry Rodriguez CARD SCRAPER, CARD SCRAPER-C Primary Care Provider, Referrin g Provider Active Dr. Damian Blanco MD Attending Provider Active Team Status: Inactive Member Role Status Dates Garry Rodriguez CARD SCRAPER, CARD SCRAPER-C Primary Care Provider Active Alexia Stacy CARD SCRAPER, CARD SCRAPER-C Attending Provider, Referring P juliana Active Lining Caser Relationship Specialty Start Date End Date Garry Rodriguez, CELL OPERATION SUPERVISOR.ECONOMIC DEVELOPMENT COORDINATOR [address] [place] [address] PCP - General Family Medicine 02/17/23 Lining Caser Relationship Specialty Start Date End Date Garry Rodriguez, CELL OPERATION SUPERVISOR.ECONOMIC DEVELOPMENT COORDINATOR [address] [place] [id number] PCP - General Family Medicine 02/17/23 Lining Caser Relationship Specialty Start Date End Date Garry Rodriguez, CELL OPERATION SUPERVISOR.ECONOMIC DEVELOPMENT COORDINATOR [address] [facility], [place] [id number] PCP - General Family Medicine 02/17/23 Lining Caser Relationship Specialty Start Date End Date Garry Rodriguez, CELL OPERATION SUPERVISOR.ECONOMIC DEVELOPMENT COORDINATOR [address] [facility], [place] [id number] PCP - General Family Medicine 02/17/23 Team Status: Inactive Member Role Status Dates Garry Rodriguez CARD SCRAPER, CARD SCRAPER-C Primary Care Provider Active Alexia Kelley CNM Attending Provider, Referring Pro vider Active Lining Caser Relationship Specialty Start Date End Date Trill, Garry C, CELL OPERATION SUPERVISOR.ECONOMIC DEVELOPMENT COORDINATOR [address] [place] [address] PCP - General Family Medicine 02/17/23 Lining Caser Relationship Specialty Start Date End Date Garry Rodriguez APRN.ECONOMIC DEVELOPMENT COORDINATOR [address] [place] [address] PCP - General Family Medicine 02/17/23 Lining Caser Relationship Specialty Start Date End Date Garry Rodriguez APRN.ECONOMIC DEVELOPMENT COORDINATOR [address] [place] [address] PCP - General Family Medicine 02/17/23 Lining Caser Relationship Specialty Start Date End Date Garry Rodriguez APRN.ECONOMIC DEVELOPMENT COORDINATOR [address] [place] [address] PCP - General Family Medicine 02/17/23 Lining Caser Relationship Specialty Start Date End Date Garry Rodriguez APRN.ECONOMIC DEVELOPMENT COORDINATOR [address] [place] [address] PCP - General Family Medicine 02/17/23 Lining Caser Relationship Specialty Start Date End Date Garry Rodriguez APRN.ECONOMIC DEVELOPMENT COORDINATOR [address] [place] [address] PCP - General Family Medicine 02/17/23 Lining Caser Relationship Specialty Start Date End Date Garry Rodriguez APRN.ECONOMIC DEVELOPMENT COORDINATOR [address] [place] [address] PCP - General Family Medicine 02/17/23 Lining Caser Relationship Specialty Start Date End Date Garry Rodriguez APRN.ECONOMIC DEVELOPMENT COORDINATOR [address] [place] [address] PCP - General Family Medicine 02/17/23 Lining Caser Relationship Specialty Start Date End Date Garry Rodriguez CELL OPERATION SUPERVISOR.ECONOMIC DEVELOPMENT COORDINATOR [address] [place] [address] PCP - General Family Medicine 02/17/23 Lining Caser Relationship Specialty Start Date End Date Garry Rodriguez CELL OPERATION SUPERVISOR.ECONOMIC DEVELOPMENT COORDINATOR [address] [place] [address] PCP - General Family Medicine 02/17/23 Lining Caser Relationship Specialty Start Date End Date Garry Rodriguez CELL OPERATION SUPERVISOR.ECONOMIC DEVELOPMENT COORDINATOR [address] [place] [address] PCP - General Family Medicine 02/17/23 Lining Caser Relationship Specialty Start Date End Date Garry Rodriguez CELL OPERATION SUPERVISOR.ECONOMIC DEVELOPMENT COORDINATOR [address] [place] [address] PCP - General Family Medicine 02/17/23 Lining Caser Relationship Specialty Start Date End Date Garry Rodriguez CELL OPERATION SUPERVISOR.ECONOMIC DEVELOPMENT COORDINATOR [address] [place] [address] PCP - General Family Medicine 02/17/23 Lining Caser Relationship Specialty Start Date End Date Garry Rodriguez CELL OPERATION SUPERVISOR.ECONOMIC DEVELOPMENT COORDINATOR [address] [place] [address] PCP - General Family Medicine 02/17/23 Lining Caser Relationship Specialty Start Date End Date Garry Rodriguez CELL OPERATION SUPERVISOR.ECONOMIC DEVELOPMENT COORDINATOR [address] [place] [address] PCP - General Family Medicine 02/17/23 Lining Caser Relationship Specialty Start Date End Date Garry Rodriguez APRN.ECONOMIC DEVELOPMENT COORDINATOR [address] [place], [place] [id number] PCP - General Family Medicine 02/17/23 Lining Caser Relationship Specialty Start Date End Date Garry Rodriguez APRN.ECONOMIC DEVELOPMENT COORDINATOR [address] [place], [place] [id number] PCP - General Family Medicine 02/17/23 Lining Caser Relationship Specialty Start Date End Date Garry Rodriguez APRN.ECONOMIC DEVELOPMENT COORDINATOR [address] [place], [place] [id number] PCP - General Family Medicine 02/17/23 Lining Caser Relationship Specialty Start Date End Date Garry Rodriguez APRN.ECONOMIC DEVELOPMENT COORDINATOR [address] [place], [place] [id number] PCP - General Family Medicine 02/17/23 Team Status: Active Member Role/Relationship Status Dates Garry Rodriguez NP, NP-C Primary Care Provider Active Team Status: Inactive Member Role/Relationship Status Dates Garry Rodriguez NP, NP-C Primary Care Provider Active Start: June 20, 2025 End: June 20, 2025 Garry Rodriguez NP, CARD SCRAPER-C Referring Provider Active Start: June 20, 2025 End: June 20, 2025 Keenan Lynne NP, CARD SCRAPER-C Attending Provider Active S tart: June 20, 2025 End: June 20, 2025 Ordered Prescriptions (unrec ognized section and content) Prescription Sig Dispensed Refills Start Date End Da te naproxen (NAPROSYN) 500 MG tablet Take 1 tablet by mouth in the morning and 1 tablet before bedtime. Do all this for 20 doses. 20 tablet 0 07/10/2022 07/20/2022 Source Comments (unrecognize d section and content) In the event this informatio n is protected by the Federal Confidentiality of Alcohol and Drug Abuse Patient Records regulations: The Federal rules restrict any use of the information to criminally investigate or prosecute any alcohol or drug abuse patient.[facility] the event this information is protected by the Federal Confidentiality of Alcohol and Drug Abuse Patient Records regulations: The Federal rules restrict any use of the information to criminally investigate or prosecute any alcohol or drug abuse patient.[facility] the event this information is protected by the Federal Confidentiality of Alcohol and Drug Abuse Patient Records regulations: The Federal rules restrict any use of the information to criminally investigate or prosecute any alcohol or drug abuse patient.[facility] the event this information is protected by the Federal Confidentiality of Alcohol and Drug Abuse Patient Records regulations: The Federal rules restrict any use of the information to criminally investigate or prosecute any alcohol or drug abuse patient.[facility]In the event this information is protected by the Federal Confidentiality of Alcohol and Drug Abuse Patient Records regulations: The Federal rules restrict any use of the information to criminally investigate or prosecute any alcohol or drug abuse patient.[facility]In the event this information is protected by the Federal Confidentiality of Alcohol and Drug Abuse Patient Records regulations: The Federal rules restrict any use of the information to criminally investigate or prosecute any alcohol or drug abuse patient.[facility] the event this information is protected by the Federal Confidentiality of Alcohol and Drug Abuse Patient Records regulations: The Federal rules restrict any use of the information to criminally investigate or prosecute any alcohol or drug abuse patient.[facility]In the event this information is protected by the Federal Confidentiality of Alcohol and Drug Abuse Patient Records regulations: The Federal rules restrict any use of the information to criminally investigate or prosecute any alcohol or drug abuse patient.[facility] the event this information is protected by the Federal Confidentiality of Alcohol and Drug Abuse Patient Records regulations: The Federal rules restrict any use of the information to criminally investigate or prosecute any alcohol or drug abuse patient.[facility] the event this information is protected by the Federal Confidentiality of Alcohol and Drug Abuse Patient Records regulations: The Federal rules restrict any use of the information to criminally investigate or prosecute any alcohol or drug abuse patient.[facility] the event this information is protected by the Federal Confidentiality of Alcohol and Drug Abuse Patient Records regulations: The Federal rules restrict any use of the information to criminally investigate or prosecute any alcohol or drug abuse patient.[facility] HospitalIn the event this information is protected by the Federal Confidentiality of Alcohol and Drug Abuse Patient Records regulations: The Federal rules restrict any use of the information to criminally investigate or prosecute any alcohol or drug abuse patient.[facility] HospitalIn the event this information is protected by the Federal Confidentiality of Alcohol and Drug Abuse Patient Records regulations: The Federal rules restrict any use of the information to criminally investigate or prosecute any alcohol or drug abuse patient.[facility] Hospital[facility] the event this information is protected by the Federal Confidentiality of Alcohol and Drug Abuse Patient Records regulations: The Federal rules restrict any use of the information to criminally investigate or prosecute any alcohol or drug abuse patient.[facility] HospitalIn the event this information is protected by the Federal Confidentiality of Alcohol and Drug Abuse Patient Records regulations: The Federal rules restrict any use of the information to criminally investigate or prosecute any alcohol or drug abuse patient.[facility] HospitalIn the event this information is protected by the Federal Confidentiality of Alcohol and Drug Abuse Patient Records regulations: The Federal rules restrict any use of the information to criminally investigate or prosecute any alcohol or drug abuse patient.[facility] HospitalIn the event this information is protected by the Federal Confidentiality of Alcohol and Drug Abuse Patient Records regulations: The Federal rules restrict any use of the information to criminally investigate or prosecute any alcohol or drug abuse patient.[facility] HospitalIn the event this information is protected by the Federal Confidentiality of Alcohol and Drug Abuse Patient Records regulations: The Federal rules restrict any use of the information to criminally investigate or prosecute any alcohol or drug abuse patient.[facility] HospitalIn the event this information is protected by the Federal Confidentiality of Alcohol and Drug Abuse Patient Records regulations: The Federal rules restrict any use of the information to criminally investigate or prosecute any alcohol or drug abuse patient.[facility] HospitalIn the event this information is protected by the Federal Confidentiality of Alcohol and Drug Abuse Patient Records regulations: The Federal rules restrict any use of the information to criminally investigate or prosecute any alcohol or drug abuse patient.[facility] HospitalIn the event this information is protected by the Federal Confidentiality of Alcohol and Drug Abuse Patient Records regulations: The Federal rules restrict any use of the information to criminally investigate or prosecute any alcohol or drug abuse patient.[facility] HospitalIn the event this information is protected by the Federal Confidentiality of Alcohol and Drug Abuse Patient Records regulations: The Federal rules restrict any use of the information to criminally investigate or prosecute any alcohol or drug abuse patient.[facility] HospitalIn the event this information is protected by the Federal Confidentiality of Alcohol and Drug Abuse Patient Records regulations: The Federal rules restrict any use of the information to criminally investigate or prosecute any alcohol or drug abuse patient.[facility] HospitalIn the event this information is protected by the Federal Confidentiality of Alcohol and Drug Abuse Patient Records regulations: The Federal rules restrict any use of the information to criminally investigate or prosecute any alcohol or drug abuse patient.[facility] HospitalIn the event this information is protected by the Federal Confidentiality of Alcohol and Drug Abuse Patient Records regulations: The Federal rules restrict any use of the information to criminally investigate or prosecute any alcohol or drug abuse patient.[facility] HospitalIn the event this information is protected by the Federal Confidentiality of Alcohol and Drug Abuse Patient Records regulations: The Federal rules restrict any use of the information to criminally investigate or prosecute any alcohol or drug abuse patient.[facility] HospitalIn the event this information is protected by the Federal Confidentiality of Alcohol and Drug Abuse Patient Records regulations: The Federal rules restrict any use of the information to criminally investigate or prosecute any alcohol or drug abuse patient.[facility] HospitalIn the event this information is protected by the Federal Confidentiality of Alcohol and Drug Abuse Patient Records regulations: The Federal rules restrict any use of the information to criminally investigate or prosecute any alcohol or drug abuse patient.[facility] HospitalIn the event this information is protected by the Federal Confidentiality of Alcohol and Drug Abuse Patient Records regulations: The Federal rules restrict any use of the information to criminally investigate or prosecute any alcohol or drug abuse patient.[facility] HospitalIn the event this information is protected by the Federal Confidentiality of Alcohol and Drug Abuse Patient Records regulations: The Federal rules restrict any use of the information to criminally investigate or prosecute any alcohol or drug abuse patient.[facility] HospitalIn the event this information is protected by the Federal Confidentiality of Alcohol and Drug Abuse Patient Records regulations: The Federal rules restrict any use of the information to criminally investigate or prosecute any alcohol or drug abuse patient.[facility] HospitalIn the event this information is protected by the Federal Confidentiality of Alcohol and Drug Abuse Patient Records regulations: The Federal rules restrict any use of the information to criminally investigate or prosecute any alcohol or drug abuse patient.[facility] HospitalIn the event this information is protected by the Federal Confidentiality of Alcohol and Drug Abuse Patient Records regulations: The Federal rules restrict any use of the information to criminally investigate or prosecute any alcohol or drug abuse patient.[facility] HospitalIn the event this information is protected by the Federal Confidentiality of Alcohol and Drug Abuse Patient Records regulations: The Federal rules restrict any use of the information to criminally investigate or prosecute any alcohol or drug abuse patient.[facility]In the event this information is protected by the Federal Confidentiality of Alcohol and Drug Abuse Patient Records regulations: The Federal rules restrict any use of the information to criminally investigate or prosecute any alcohol or drug abuse patient.[facility] the event this information is protected by the Federal Confidentiality of Alcohol and Drug Abuse Patient Records regulations: The Federal rules restrict any use of the information to criminally investigate or prosecute any alcohol or drug abuse patient.[facility] the event this information is protected by the Federal Confidentiality of Alcohol and Drug Abuse Patient Records regulations: The Federal rules restrict any use of the information to criminally investigate or prosecute any alcohol or drug abuse patient.[facility] HospitalIn the event this information is protected by the Federal Confidentiality of Alcohol and Drug Abuse Patient Records regulations: The Federal rules restrict any use of the information to criminally investigate or prosecute any alcohol or drug abuse patient.[facility] HospitalIn the event this information is protected by the Federal Confidentiality of Alcohol and Drug Abuse Patient Records regulations: The Federal rules restrict any use of the information to criminally investigate or prosecute any alcohol or drug abuse patient.[facility] HospitalIn the event this information is protected by the Federal Confidentiality of Alcohol and Drug Abuse Patient Records regulations: The Federal rules restrict any use of the information to criminally investigate or prosecute any alcohol or drug abuse patient.[facility] HospitalIn the event this information is protected by the Federal Confidentiality of Alcohol and Drug Abuse Patient Records regulations: The Federal rules restrict any use of the information to criminally investigate or prosecute any alcohol or drug abuse patient.[facility] HospitalIn the event this information is protected by the Federal Confidentiality of Alcohol and Drug Abuse Patient Records regulations: The Federal rules restrict any use of the information to criminally investigate or prosecute any alcohol or drug abuse patient.[facility] HospitalIn the event this information is protected by the Federal Confidentiality of Alcohol and Drug Abuse Patient Records regulations: The Federal rules restrict any use of the information to criminally investigate or prosecute any alcohol or drug abuse patient.[facility] HospitalIn the event this information is protected by the Federal Confidentiality of Alcohol and Drug Abuse Patient Records regulations: The Federal rules restrict any use of the information to criminally investigate or prosecute any alcohol or drug abuse patient.[facility] HospitalIn the event this information is protected by the Federal Confidentiality of Alcohol and Drug Abuse Patient Records regulations: The Federal rules restrict any use of the information to criminally investigate or prosecute any alcohol or drug abuse patient.[facility] HospitalIn the event this information is protected by the Federal Confidentiality of Alcohol and Drug Abuse Patient Records regulations: The Federal rules restrict any use of the information to criminally investigate or prosecute any alcohol or drug abuse patient.[facility] HospitalIn the event this information is protected by the Federal Confidentiality of Alcohol and Drug Abuse Patient Records regulations: The Federal rules restrict any use of the information to criminally investigate or prosecute any alcohol or drug abuse patient.[facility] HospitalIn the event this information is protected by the Federal Confidentiality of Alcohol and Drug Abuse Patient Records regulations: The Federal rules restrict any use of the information to criminally investigate or prosecute any alcohol or drug abuse patient.[facility] HospitalIn the event this information is protected by the Federal Confidentiality of Alcohol and Drug Abuse Patient Records regulations: The Federal rules restrict any use of the information to criminally investigate or prosecute any alcohol or drug abuse patient.[facility] HospitalIn the event this information is protected by the Federal Confidentiality of Alcohol and Drug Abuse Patient Records regulations: The Federal rules restrict any use of the information to criminally investigate or prosecute any alcohol or drug abuse patient.[facility] HospitalIn the event this information is protected by the Federal Confidentiality of Alcohol and Drug Abuse Patient Records regulations: The Federal rules restrict any use of the information to criminally investigate or prosecute any alcohol or drug abuse patient.[facility] Goals (unrecognized section and content) Goals may be documented in a n alternate section No data available for this section No data available for this section No data available for this section No data available for this sectionGoals may be documented in an alternate section FOR RECORDS PERTAINING TO PATIENTS WHO ARE OR HAVE BEEN ENROLLED IN A CHEMICAL DEPENDENCY/SUBSTANCEABUSE PROGRAM, SOME INFORMATION MAY BE OMITTED. This clinical summary was aggregated from multiple sources. Caution should be exercised in using it in the provision of clinical care. This summary normalizes information from multiple sources, and as a consequence, information in this document may materially change the coding, format and clinical context of patient data. In addition, data may be omitted in some cases. CLINICAL DECISIONS SHOULD BE BASED ON THE PRIMARY CLINICAL RECORDS. [facility] [facility]. provides no warranty or guarantee of the accuracy or completeness of information in this document.
[2025-07-15] VITALS (11 sets, daily range): BP systolic 125–155; BP diastolic 73–98; PULSE 73–90; RESP 16–18; TEMP 36.7–36.8; O2SAT 96–99; BMI 35.9
--- NOTE | 2025-07-15 00:22 | ED.VIS.STROK ---
HPI History of Present Illness Chief Complaint: Numb/Ting Informant: patient Narrative Narrative: 45-year-old female presenting with numbness in all fingers of the left hand that she woke up with this past a.m., and within the past couple hours she has noticed also numbness in her left upper lip but it does not go across the midline. No other symptoms. No headache, no recent illness or oubu-uaz-anpyktd medications or changes in her medicines, no weakness, no problems walking or speaking or understanding others. She had a TIA in the past but it was 13 or 14 years ago and she cannot remember exactly what symptoms she had but that was her main concern here now. [facility] Medical History Cardiac LV ejection fraction 10-20% (08/12/23) Idiopathic cardiomyopathy (08/12/23) delivery delivered TIA (transient ischemic attack) Diabetes HTN (hypertension) Home Medications ?Medication ?Instructions ?Recorded ?Last Taken ?Type empagliflozin 25 mg tablet 25 mg PO QDAY 12/13/24 Unknown History (Jardiance) carvedilol 25 mg tablet 25 mg PO BID #180 tabs 06/20/25 Unknown Rx furosemide 40 mg tablet 40 mg PO DAILY 06/20/25 Unknown History lisinopril 20 mg tablet 20 mg PO BID 90 days #180 tabs 06/20/25 Unknown Rx sitagliptin phosphate 100 mg 100 mg PO QDAY 06/20/25 Unknown History tablet (Januvia) rosuvastatin 10 mg tablet 10 mg PO QHS 07/15/25 Unknown History Allergy/AdvReac Type Severity Reaction Status Date / Time latex AdvReac Mild RASH Verified 07/14/25 23:23 Penicillins AdvReac UNKNOWN Verified 07/14/25 23:23 Family History Mother Diabetes Hypertension Father Diabetes Hypertension Surgical History Previous section Social History household members: significant other and children housing: house Smoking Status: Never smoker alcohol intake: current alcohol intake frequency: holidays/special occasions only substance use type: does not use caffeine: Yes Type: carbonated beverages Number of servings: 3, coffee Number of servings: 1 and tea ROS ROS ED Constitutional Constitutional ED: Denies chills or fever(s) Eyes Eyes: Denies change in vision or diplopia ENT ENT ED: Denies rhinorrhea or sore throat Cardiovascular Cardiovascular: Denies chest pain or palpitations Respiratory/Chest Respiratory/Chest: Denies cough or dyspnea Gastrointestinal Gastrointestinal: Denies abdominal pain, diarrhea, nausea or vomiting Genitourinary Genitourinary ED: Denies dysuria or hematuria Musculoskeletal Musculoskeletal: Denies back pain or neck pain Integumentary Denies abscess or rash Neurologic Neurologic: Reports paresthesias; Denies headache(s) or weakness Psychiatric Psychiatric: Denies anxiety or suicidal thoughts EXAM Physical Exam Const Vital Signs: 07/14/25 23:23 07/15/25 00:20 07/15/25 00:41 Temperature 98.3 F Temperature Source Oral Pulse Rate 102 H 88 Respiratory Rate 16 16 Blood Pressure 181/103 H Blood Pressure Mean 129 Pulse Ox 98 99 98 Oxygen Delivery Method Room Air Room Air Room Air 07/15/25 01:22 Temperature Temperature Source Pulse Rate 89 Respiratory Rate 18 Blood Pressure 125/73 H Blood Pressure Mean 90 Pulse Ox 97 Oxygen Delivery Method Room Air Positive well nourished and well developed General Appearance ED: well developed and NAD HEENT Reports moist mucous membranes normocephalic and atraumatic Eyes PERRL and EOMs intact bilaterally Eyes Narrative: Visual kim intact Neck full ROM and supple Resp normal respiratory effort and clear to auscultation bilaterally Cardio regular rate, regular rhythm and no murmurs GI non-tender and non-distended Auscultation: normoactive bowel sounds Palpation: soft Back/Spine no CVA tenderness General Back: other FROM Extremity normal to inspection General Extremety ED: Negative for edema, pulses abnormal or tenderness General Extremity: Negative for edema or pulses abnormal Neuro oriented x3, CN's II-XII intact bilaterally and no sensory deficits noted Neuro Narrative: Normal hhynrq-ui-rpkn and iian-dg-sxti. Normal speech. Normal strength. Normal answers to questions keenly alert. NIHSS 1 for decreased sensation left lower face and left upper extremity distally only. Sensorium / Orientation: awake and alert Motor Exam: strength 5/5 throughout Psych mental status grossly normal Skin no rashes or lesions noted and no wounds MDM MDM MDM Narrative Medical decision making narrative: My concerns at the patient could be having a TIA or stroke. She is outside of the 24-hour window as far as her last known well so we did not call and alert but did the same workup. Plain CT unremarkable, CT angiography of the head and neck is negative for LVO or aneurysm or other acute abnormality. Labs are unremarkable including 2 sets of troponins, her EKG shows a bifascicular block, this is unchanged compared with her prior. She is in sinus rhythm. I reviewed the CT images and reports and I agree with them. Her initial presenting blood pressure was concerning at 181/103. Patient states this is not uncommon for her. That makes hypertensive emergency much less likely. Monitoring it closely and not treating at that point was indicated, repeat blood pressure 125/73 but she still has the paresthesias although improved; gone in face/lip, and now only in certain left fingers. I recommend admission for MRI and further testing since she is on no antiplatelet or anticoagulant medications. History & Record Review Additional record(s) reviewed:: Other (Echo from 06/07/2024 fairly unremarkable, no indication that bubble study was performed) Lab Data Attestation: I reviewed the patient's lab results. Labs: Laboratory Results - last 24 hr 07/15/25 07/15/25 00:36 02:47 WBC 6.7 RBC 5.24 Hgb 14.3 Hct 43.5 MCV 83.0 MCH 27.3 MCHC 32.9 RDW Std Deviation 41.3 RDW Coeff of Chad 13.6 Plt Count 347 MPV 9.8 Immature Gran % (Auto) 0.400 Neut % (Auto) 68.3 Lymph % (Auto) 20.2 Jones % (Auto) 8.6 Eos % (Auto) 1.9 Baso % (Auto) 0.6 Absolute Neuts (auto) 4.6 Absolute Lymphs (auto) 1.36 Nucleated RBC % 0 PT 13.0 INR 1.0 APTT 24.7 Sodium 134 Potassium 3.8 Chloride 100 Carbon Dioxide 20.8 L Anion Gap 13 BUN 12 Creatinine 1.13 Estim Creat Clear Calc 69.64 Est GFR (MDRD) Non-Af 62 BUN/Creatinine Ratio 11.0 Glucose 301 H Calcium 9.6 Troponin T High Sens 13 Troponin T Hi Sens 2 Hr 9 Radiography Diagnostic Testing: Clinical Impression(s) from Imaging Studies Brain CT 07/15/25 01:20 IMPRESSION: No intracerebral or extra-axial hemorrhage. No acute cerebrovascular insult. If there is high clinical suspicion, correlate to MRI Unremarkable non-enhanced CT study for the brain. Reading [facility] Head[facility]Neck CTA 07/15/25 01:20 IMPRESSION: Patent intra and extra-cranial carotid and vertebral arteries. No stenotic lesions, aneurysmal dilatation or dissecting intimal flaps. Reading Location: [place] [id number] Rhythm Strip Rhythm Strip: Sinus Rhythm Rate: 90 Ectopy: None EKG Initial EKG: Attestation: I personally reviewed and interpreted this EKG as follows: Interpretation: Sinus Rhythm, No Acute Injury Pattern, RBBB and LAFB Prior EKG tracings: available for review Prior: Unchanged Management Discussion w/another healthcare provider: Hospitalist Discharge Plan Dx/Rx/DC Orders Clinical Impression: Paresthesia of left arm, Facial paresthesia, Accelerated hypertension Disposition Disposition: Acute Care Hospital [facility] NIHSS NIHSS 1a. Level of Consciousness: 0 - Alert; keenly responsive 1b. LOC Questions: 0 - Answers BOTH questions correctly 1c. LOC Commands: 0 - Performs BOTH tasks correctly 2. Best Gaze: 0 - Normal 3. Visual: 0 - No visual loss 4. Facial Palsy: 0 - Normal symmetrical movements 5a. Left Arm: 0 - No drift; arm holds 90 (or 45) degrees for full 10 seconds 5b. Right Arm: 0 - No drift; arm holds 90 (or 45) degrees for full 10 seconds 6a. Left Le - No drift; leg holds 30-degree position for full 5 seconds 6b. Right Le - No drift; leg holds 30-degree position for full 5 seconds 7. Limb Ataxia: 0 - Absent 8. Sensory: 1 - Zrhz-cp-pkzibzwr sensory loss; 9. Best Language: 0 - No aphasia; normal 10. Dysarthria: 0 - Normal 11. Extinction and Inattention: 0 - No abnormality Total: 1 Stroke Questions Stroke Team Activated: No (Outside of 24-hour last known well)
[2025-07-15 00:43] LABS: Hematocrit 43.5 % (37-47); Hemoglobin 14.3 g/dL (12.0-15.0); Immature Granulocytes Count 0.030 X10^3/uL (0.0-0.0); Mean Corp Hgb Conc 32.9 g/dL (32-36); Mean Corpuscular Volume 83.0 fL (81-99); Mean Platelet Vol. 9.8 fl (6.2-12.0); NRBC Flagged by Analyzer 0 % (0-5); Platelet Count 347 K/mm3 (150-450); RBC Distribution Width CV 13.6 % (11.6-14.6); RBC Distribution Width SD 41.3 fl (35.1-43.9); Red Blood Count 5.24 M/mm3 (4.2-5.4); White Blood Count 6.7 K/mm3 (4.4-11.0)
[2025-07-15 00:48] LABS: Prothrombin Time (Protime)PT. 13.0 SECONDS (11.7-14.9)
[2025-07-15 00:49] LABS: Partial Thromboplast Time 24.7 Seconds (24.1-36.2)
[2025-07-15 01:06] LABS: Anion Gap 13 (5-15); BUN 12 mg/dL (4-19); BUN/Creat Ratio 11.0 RATIO (10-20); Calcium,Total 9.6 mg/dL (7.6-11.0); Carbon Dioxide 20.8 mmol/L (21.0-32.0); Chloride 100 mmol/L (98-108); Estimated Creatinine Clearance 69.64 ml/min (50-250); Glucose 301 mg/dL (70-99); Potassium 3.8 mmol/L (3.3-5.1); Troponin T High Sensitivity 13 ng/L (<=14)
--- NOTE | 2025-07-15 01:20 | CT_ITS ---
PROCEDURE: BRAIN/HEAD WITHOUT CONTRAST 07/15/2025 REASON FOR EXAM: NUMBNESS LUE, LEFT LOWER FACE > 24H TECHNIQUE: BRAIN/HEAD WITHOUT CONTRAST Coronal and Sagittal reconstruction series were provided. One or more dose reduction techniques were used (e.g., Automated exposure control, adjustment of the mA and/or kV according to patient size, use of iterative reconstruction technique. RADIATION DOSE SUMMARY: CTDlvol:mGy DLP: mGycm COMPARISON: none FINDINGS: The visualized brain parenchyma shows normal appearance. No focal parenchymal abnormalities are demonstrated. Mcmahon-white matter differentiation is maintained. Normal CT appearance of the posterior fossa structures. No intracerebral or extra-axial hemorrhage. No midline shifts or deformity. Normal size and configuration of the cerebral ventricles. No definite calvarial fractures. The osseous structures in the skull base are unremarkable. Paranasal sinuses are unremarkable. CT/Brain/Head without Contrast IMPRESSION: No intracerebral or extra-axial hemorrhage. No acute cerebrovascular insult. If there is high clinical suspicion, correlate to MRI Unremarkable non-enhanced CT study for the brain. Reading Location: [facility]
--- NOTE | 2025-07-15 01:20 | CT_ITS ---
PROCEDURE: CTA HEAD AND NECK W/ CONTRAST 07/15/2025 REASON FOR EXAM: NUMBNESS LUE, LEFT LOWER FACE > 24H TECHNIQUE: CTA HEAD AND NECK W/ CONTRAST Multiplanar Sagittal and Coronal images were obtained. CONTRAST: VOLUME: mL One or more dose reduction techniques were used (e.g., Automated exposure control, adjustment of the mA and/or kV according to patient size, use of iterative reconstruction technique). RADIATION DOSE SUMMARY: CTDlvol: mGy DLP: mGycm COMPARISON: none FINDINGS: The aortic arch is seen homogenously opacified with contrast and its main arterial branches in the neck. No stenotic lesions or dissecting intimal flaps. It shows bovine configuration. Patent homogenously opacified common carotid arteries. No stenotic lesions, aneurysmal dilatation or dissecting intimal flaps. Patent carotid bulbs. Patent homogenously opacified cervical, petrous, cavernous and supraclinoid segments of the internal carotid arteries. Fenestrated cavernous segment of the left internal carotid artery is noted, variant. Patent anterior and middle cerebral arteries. Patent external carotid arteries. Dominant right vertebral artery. Variant. Otherwise, patent vertebral arteries showing homogenous contrast opacification. No stenotic lesions or dissecting intimal flaps. Patent basilar artery and its branches. Normal contrast filling is noted in all of these mentioned arteries without any stenotic lesions, occlusion, aneurysmal dilatation or arteriovenous malformation. CT/CTA Head AND Neck W/ Contrast IMPRESSION: Patent intra and extra-cranial carotid and vertebral arteries. No stenotic lesi ons, aneurysmal dilatation or dissecting intimal flaps. Reading Location: [place] [id number]
[2025-07-15 03:16] LABS: Troponin T High Sens 2 HR 9 ng/L (<=14)
--- NOTE | 2025-07-15 03:48 | HP.PCM.HOS_ITS ---
[facility] - General General Date of Admission: 07/15/25 Date of Service: 07/15/25 Chief Complaint: Numbness and Tingling in Left Hand and Left Lower Face. HPI Narrative MANDA BILL, is a 45 F with a past medical history of essential hypertension; on carvedilol BID, lisinopril and furosemide, hyperlipidemia; on rosuvastatin, obesity (class II); with BMI of 37.1 this admission, DM-2; of unknown control on empagliflozin and sitagliptin, CAD; s/p NSTEMI (2022), history of , history of peripartum cardiomyopathy (2022); with LVEF ~10-20% that has since resolved with normal LVEF on last echocardiogram (05/2024) and history of TIA (~2011) who presents to [facility] ER complaining of numbness and tingling in the fingers of her Left hand and Left upper lip. Ms. Bill reports her symptoms began on the morning of July 14, 2025 with numbness in her entire Left hand - but then in ~2 hours prior to arrival she noticed numbness in her Left upper lip that does not cross the midline in addition to the Left lower face. She denies any other associated neurologic symptoms and though she cannot recollect exactly what her symptoms were at that time she was concerned she may be having another TIA so she decided to come in for further evaluation and treatment. She denies related headache, weakness, slurred speech, difficulty understanding speech, fever, chills, nausea, vomiting, abdominal pain, chest pain, palpitations, heart racing, lower extremity edema, dysuria, hematuria, rash, OTC medications, dietary supplements, illicit drug use or other recent illness. In the ER she was noted to have a CT scan of the head without contrast revealed no evidence of acute cerebrovascular insult with a subsequent CTA of the head and neck with IV contrast that showed no stenotic lesions, aneurysmal dilatation or dissecting intimal flaps with laboratory evidence of Hyperglycemia of 301 mg/dL present on admission with otherwise unremarkable labs and vital signs. She was then admitted to the PCU under observation status for TIA evaluation for ongoing care for a stay that is expected to be less than 48 hours. [facility] Medical History (Updated 07/15/25 @ 04:[address] Denis Watts DO) Cardiac LV ejection fraction 10-20% (08/12/23) Idiopathic cardiomyopathy (08/12/23) delivery delivered TIA (transient ischemic attack) Diabetes HTN (hypertension) Home Medications ?Medication ?Instructions ?Recorded ?Last Taken ?Type empagliflozin 25 mg tablet 25 mg PO QDAY 12/13/24 Unkn own History (Jardiance) carvedilol 25 mg tablet 25 mg PO BID #180 tabs 06/20 Unknown Rx furosemide 40 mg tablet 40 mg PO DAILY 06/20/25 Unkn own History lisinopril 20 mg tablet 20 mg PO BID 90 days #180 ta bs 06/20/25 Unknown Rx sitagliptin phosphate 100 mg 100 mg PO QDAY 06/20/25 U nknown History tablet (Januvia) rosuvastatin 10 mg tablet 10 mg PO QHS 07/15/25 Unknow n History Allergy/AdvReac Type Severity Reaction Status Date / Time latex AdvReac Mild RASH Verified 07/14/25 23:23 Penicillins AdvReac UNKNOWN Verified 07/14/25 23:23 Family History Mother Diabetes Hypertension Father Diabetes Hypertension Surgical History Previous section Social History household members: significant other and children housing: house Smoking Status: Never smoker alcohol intake: current alcohol intake frequency: holidays/special occasions only substance use type: does not use caffeine: Yes Type: carbonated beverages Number of servings: 3, coffee Number of servings: 1 and tea ROS ROS Narrative Review of Systems: Constitutional: Patient denies fever or chills. Eyes: Patient denies changes in vision or discharge from eyes. ENT: Patient denies runny nose, sore throat or ear pain. Resp: Patient denies SOB or cough. CV: Patient denies chest pain, palpitations, heart racing or LE edema. GI: Patient denies abdominal pain, nausea, vomiting, diarrhea or constipation. : Patient denies dysuria or hematuria. MSK: Patient denies arthralgias or myalgias. Skin: Patient denies rash, abscess, sounds or jaundice. Psych: Patient denies symptoms of uncontrolled depression or anxiety. Neuro: Patient admits to numbness in Left hand and Left/lower face upper lip that does not cross the midline as per HPI. Allergy: Patient denies lip swelling, tongue swelling or urticaria. Hematology: Patient denies easy bleeding or easy bruisability. Endocrinology: Patient admits to hyperglycemia but she denies polyphagia or heat/cold intolerance. 14 point ROS otherwise negative except for positives noted above in HPI. Vital Signs Vital Signs Vital Signs: 07/14/25 23:23 07/15/25 00:20 07/15/25 00:41 Temperature 98.3 F Temperature Source Oral Pulse Rate 102 H 88 Respiratory Rate 16 16 Blood Pressure 181/103 H Blood Pressure Mean 129 Pulse Ox 98 99 98 Oxygen Delivery Method Room Air Room Air Room Air 07/15/25 01:22 Temperature Temperature Source Pulse Rate 89 Respiratory Rate 18 Blood Pressure 125/73 H Blood Pressure Mean 90 Pulse Ox 97 Oxygen Delivery Method Room Air Weight Weight: 209 lb 6.4 oz Body Mass Index (BMI) 37.0 Physical Exam Const alert, oriented x3, no apparent distress and healthy appearing Constitutional Narrative: Obese and nontoxic in appearance. General Appearance: cooperative HEENT normocephalic, head/scalp atraumatic, hearing grossly normal bilaterally and moist oral mucous membranes Eyes PERRL, EOMs intact bilaterally and conjunctivae normal Neck no lymphadenopathy, supple and no JVD Resp normal respiratory effort, no retractions, no use of accessory muscles and clear to auscultation bilaterally Cardio regular rate and regular rhythm GI normal to inspection, nondistended, normoactive bowel sounds, soft to palpation, non-tender and non-distended GI Narrative: Obese. Extremity normal to inspection, full ROM and no clubbing, cyanosis or edema Skin Skin Narrative: Patient has no evidence of rash, abscess, wounds or jaundice. Neuro oriented x3, CN's II-XII intact bilaterally and moves all extremities Neuro Narrative: Decreased sensation in Left lower face and distal LUE but otherwise nonfocal neurologic exam. Sensorium / Orientation: awake, alert, oriented to person, oriented to place and oriented to time Speech: speech normal Psych affect normal Results Medical Records Data Attestation: I reviewed the patient's medical records Lab / Micro Data Attestation: I reviewed the patient's lab results. 07/15/25 00:36 07/15/25 00:36 Labs: Laboratory Results - last 24 hr 07/15/25 00:36: WBC 6.7, RBC 5.24, Hgb 14.3, Hct 43.5, MCV 83.0, MCH 27.3, MCHC 32.9, RDW Std Deviation 41.3, RDW Coeff of Chad 13.6, Plt Count 347, MPV 9.8, Immature Gran % (Auto) 0.400, Neut % (Auto) 68.3, Lymph % (Auto) 20.2, Gordon % (Auto) 8.6, Eos % (Auto) 1.9, Baso % (Auto) 0.6, Absolute Neuts (auto) 4.6, Absolute Lymphs (auto) 1.36, Nucleated RBC % 0, PT 13.0, INR 1.0, APTT 24.7, Sodium 134, Potassium 3.8, Chloride 100, Carbon Dioxide 20.8 L, Anion Gap 13, BUN 12, Creatinine 1.13, Estim Creat Clear Calc 69.64, Est GFR (MDRD) Non-Af 62, BUN/Creatinine Ratio 11.0, Glucose 301 H, Calcium 9.6, Troponin T High Sens 13 07/15/25 02:47: Troponin T Hi Sens 2 Hr 9 Rhythm Strip Rhythm Strip: Sinus Rhythm Rate: 90 Ectopy: None Imaging Radiology Impression Brain CT 07/15/25 01:20 IMPRESSION: No intracerebral or extra-axial hemorrhage. No acute cerebrovascular insult. If there is high clinical suspicion, correlate to MRI Unremarkable non-enhanced CT study for the brain. Reading Location: [place] [id number] Head/Neck CTA 07/15/25 01:20 IMPRESSION: Patent intra and extra-cranial carotid and vertebral arteries. No stenotic lesions, aneurysmal dilatation or dissecting intimal flaps. [facility] Assessment & Plan Assessment/Plan (1) TIA (transient ischemic attack): (2) Paresthesia of left arm: (3) Facial paresthesia: (4) Hyperglycemia due to type 2 diabetes mellitus: QUALIFIERS: Diabetes mellitus intermediate designer insulin use: without fdc use Qualified Code(s): E11.65 - Type 2 diabetes mellitus with hyperglycemia (5) Obesity (BMI 30-39.9): (6) Essential hypertension: PLAN: Plan 1. Numbness and Tingling of the Left Lip/Lower face and fingers of the Left hand in the setting of a remote history of TIA (~2011) - Admit to PCU under observation status. Check MRI of the brain without contrast. Check echocardiogram to evaluate LVEF. Check carotid Doppler to evaluate for stenosis. Start ECASA plus continue statin. Check TSH, B12, Folate, HgbA1c, Lipid Profile, TRINA and UDS. Patient's numbness is only in the 3rd and 4th fingers and her Left lip/facial numbness has resolved. Finally, we will consult [facility] to see this patient on-rounds in the AM for further recommendations with help appreciated in advance. 2. DM-2; uncontrolled with Hyperglycemia of 301 mg/dL present on admission complicating #1 - Keep NPO until swallow evaluation. Check FSBS q. 6 hours plus SSI. Check HgbA1c to objectively assess quality of diabetic control. Hold oral hypoglycemic agents while inpatient. 3. Obesity (class II); with BMI of 37.1 this admission adding to the burden of disease outlined from #1 & #2 - Weight loss will be recommended. Check TSH. This complicates her case and may hamper recovery. 4. Essential hypertension; on carvedilol BID, lisinopril and furosemide adding to the medical complexity of #1 - #3 - Hold scheduled antihypertensives until CVA definitively ruled out on MRI to allow for 'permissive hypertension'. 5. Hyperlipidemia; on rosuvastatin - Maintain statin and check Lipid Profile. 6. CAD; s/p NSTEMI (2022) - Noted. 7. History of - Noted. 8. History of peripartum cardiomyopathy (2022); with LVEF ~10-20% that has since resolved with normal LVEF on last echocardiogram (05/2024) - Recheck echocardiogram this admission pending for #1. 9. DVT prophylaxis - Enoxaparin 40 mg sq daily plus SCD's. Total time: Approximately (but not less than) 70 minutes. Charges/Coding Visit Charges OBSV E&M: 51516 Observ/hosp same date L2
--- OUTSIDE RECORDS SUMMARY | 2025-07-15 04:05 | XMS RPT_ITS | CCD ---
Author Organization [facility] Care Team Providers Care Technical Assistance Consultant Name Role Phone LEXI LISSA Hcikman Unavailable Unavailable CHICO PARADA Unavailable Unavailable Augusta-Yelitza Ama Primary Care Provider Augusta-Yelitza Ama Primary Care Provider Required, No Pcp Unavailable Unavailable Marquise Pena Unavailable Unavailable Augusta-Yelitza PA-C, Ama Primary Care Provider Augusta-Yelitza PA-C, Ama Primary Care Provider Augusta-Yelitza PA-C, Ama Primary Care Provider AUGUSTA-YELITZA, AMA Primary Care Unavailabl e AUGUSTA-YELITZA, AMA Referring Unavailabl e AUGUSTA-YELITZA, AMA Primary Care Unavailabl e Arturo MRI ASSISTANT.Garry PERRY Primary Care Provider MD Placido Pena Emergency Provider Arturo OUTSIDE INSTALLER APPRENTICE, OUTSIDE INSTALLER APPRENTICE-C Garry Primary Care Provider Dr. Ha Echevarria Admit Provider [phone] Ha Echevarria Attending Provider Dr. Ha Echevarria Other Provider Dr. Damian Blanco Other Provider Dr. Damian Blanco Attending Provider Dr. Aj Colon Other Provider Dr. Aj Colon Attending Provider Trill OUTSIDE INSTALLER APPRENTICE, OUTSIDE INSTALLER APPRENTICE-C Garry Referring Provider MD Placido Pena Emergency Provider Trill OUTSIDE INSTALLER APPRENTICE, OUTSIDE INSTALLER APPRENTICE-C Garry Primary Care Provider Dr. Ha Echevarria Admit Provider Dr. Ha Echevarria Attending Provider Dr. Ha Echevarria Other Provider Dr. Damian Blanco Other Provider Dr. Damian Blanco Attending Provider Dr. Aj Colon Other Provider Dr. Aj Colon Attending Provider Trichito OUTSIDE INSTALLER APPRENTICE, OUTSIDE INSTALLER APPRENTICE-C Garry Referring Provider TRILL MRI ASSISTANT-GEOPHYSICAL LABORATORY SUPERVISOR, PIERO Momin Primary Care Physician Trill MRI ASSISTANT.GEOPHYSICAL LABORATORY SUPERVISOR, Garry C Primary Care Provider ANALI DAWSON, KRISTYN Attending Unavailable TRILL MRI ASSISTANT-GEOPHYSICAL LABORATORY SUPERVISOR, PIERO Momin Primary Care Gabriele BRIONES MD, KRISTYN Attending Unavailable TRILL MRI ASSISTANT-GEOPHYSICAL LABORATORY SUPERVISOR, PIERO Momin Primary Care Unavai lable TRILL MRI ASSISTANT-GEOPHYSICAL LABORATORY SUPERVISOR, PIERO Momin Primary Care Gabriele BRIONES MD, KRISTYN Attending Unavailable ANALI DAWSON, KRISTYN Attending Unavailable TRILL MRI ASSISTANT-GEOPHYSICAL LABORATORY SUPERVISOR, PIERO Momin Primary Care Unavai lable TRILL MRI ASSISTANT-GEOPHYSICAL LABORATORY SUPERVISOR, PIERO Momin Primary Care Unavai lable BEITLER MRI ASSISTANT-CNM, JESSICA Morales Attending Unav ailable TRILL MRI ASSISTANT-GEOPHYSICAL LABORATORY SUPERVISOR, PIERO Momin Primary Care Gabriele BRIONES MD, KRISTYN Attending Unavailable ANALI DAWSON, KRISTYN Attending Unavailable TRILL MRI ASSISTANT-GEOPHYSICAL LABORATORY SUPERVISOR, PIERO Momin Primary Care Unavai lable TRILL, [...] TRILL, GARRY C Primary Care Unavailable Trill OUTSIDE INSTALLER APPRENTICE-C, Garry Primary Care Provider Trill OUTSIDE INSTALLER APPRENTICE-C, Garry Referring Provider Roof OUTSIDE INSTALLER APPRENTICE-C, Keenan Hickman Attending Provider Trichito OUTSIDE INSTALLER APPRENTICE, Garry Primary Care Unavailable Maged OUTSIDE INSTALLER APPRENTICEKeenan Attending Unavailable Trill OUTSIDE INSTALLER APPRENTICE, Garry Referring Unavailable Trill OUTSIDE INSTALLER APPRENTICE, Garry Primary Care Unavailable Maged OUTSIDE INSTALLER APPRENTICEKeenan Attending Unavailable Trill OUTSIDE INSTALLER APPRENTICE, Garry Referring Unavailable Stacy OUTSIDE INSTALLER APPRENTICEAlexia Attending Unavailable Trill OUTSIDE INSTALLER APPRENTICE, Garry Referring Unavailable Trill OUTSIDE INSTALLER APPRENTICE, Garry Primary Care Unavailable Allergies Allergy Classification Reported Allergen(s) Allergy Type Date of Onset Reaction(s) Facility Latex (1 source) Latex Substance Allergy Weal (disorder) [facility] Penicillins (antibiotic) (1 source) Penicillin; Translations: [penicillin] Drug Allergy Unknown (qualifier value) [facility] (20 sources) Latex; Translations: [LATEX] Propensity to adverse reactions to drug 6 Hives, Itching, Weal (disorder) [employer] Phone: (13 sources) Penicillins; Translations: [PENICILLINS] Propensity to adverse reactions to drug 1 Anaphylaxis [employer] [facility] Phone: (1 source) Metformin And Related Propensity to adverse reactions to drug 0 Diarrhea [facility] [place] (4 sources) Penicillin; Translations: [penicillin] Drug Allergy Unknown (qualifier value) [facility] (20 sources) Penicillins Drug Allergy 2 Unknown [facility] Work Phone: (5 sources) Penicillins Propensity to adverse reactions 3 UNKNOWN [facility] (12 sources) Penicillins Drug Allergy 2 Unknown [facility] Work Phone: (1 source) Latex Drug allergy (disorder) 5 [facility] Repository (1 source) Penicillins Drug allergy (disorder) 5 [facility] Repository Medications Current Medications Medication Drug Class(es) [...] ly Quantity: 0 Refills: 0 Ordered: 01-Apr-2015 dJ Cabrera Generic Substitution Allowed Multivitamin preparation (1 [...] hyperglycemia, without long-term current use of insulin ([facility]) Take 1 tablet by mouth once daily. 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 Normal [facility] [id number] 05-31-2025 [id number] HNO ID: [id number] Author: FEDERICO AMBRIZ PT Service: ? Author Type: Physical Therapist Type: [id number] Filed: 05/31/2025 15:03 Note Text: [facility] Physical Therapy Plan of Care Certification Patient Name: Patt Crane : 1980 [facility] #: [id number] Date: 05/30/2025 To: Emilia Griffiths DPM From Therapist: Federico Ambriz PT RE: Patient Certification/ Recertification Your review, approval and electronic signature are required in order to comply with Payor: [employer] MEDICAID / Plan: [employer] MEDICA[employer] / Product Type: Medicaid / regulations. [...] T-score by a minimum 5 points. Improved [place] in home exercise program. Currently met Patient [...] Patient to be seen for Therapeutic exercise (47926), Neuromuscular re-education (64526), Therapeutic activities (61307), Manual therapy (67933), Self-residential management (44817), Gait Training (16711), Patient/Family/Caregiv er Education, Body Mechanics Training PLAN FOR NEXT VISIT: Continue manual as needed, progress stretching to strength per tolerance For further details regarding this patient refer to the Physical Therapy electronically documented visit dated 05/30/2025. Provider Attestation I have reviewed the treatment plan for Patt Crane, CC# [id number] for the period of 05/30/25 -- 07/31/25, established on 05/30/2025. Signature certifies the need for therapy services. Normal [facility] CNTHERAPYon 05-30-2025 CNTHERAPY OT/PT/Speech Visit (PTWS) ROYCE,PATT ([id number]) 1980 F Date Time Provider Department 05/30/25 8:15 AM FEDERICO AMBRIZ PTWS Date Time Provider Department [place] 05/30/2025 8:15 AM [id number], SEAN PTWS Sanjuana Galeas Reason for Visit: PT Progress Note [8086] Primary Visit Diagnosis:Plantar fasciitis [M72.2] Other Visit [...] - Blood-Glucose Meter 1 Units once daily. Lidar Analyst: Addendum Therapy (PT/OT/Speech/Resp) ID: [id number] 05/30/2025 8:48 AM Author: FEDERICO AMBRIZ Signed by FEDERICO AMBRIZ PT on 05/30/2025 at 8:48 AM * * * This document replaces document [id number] * * * Document text: Program_ID:[id number] Access Code: [email or web address] URL: [email or web address] Date: 05-30-2025 Prepared By: Federico Ambriz Program [...] 3 sets - 10 reps -- Normal [facility] THERAPY NTon 05-30-2025 THERAPY NT HNO ID: [id number] Author: FEDERICO AMBRIZ PT Service: ? Author Type: Physical Therapist Type: Therapy (PT/OT/Speech/Resp) Filed: 05/30/2025 08:48 Note Text: Program_ID:[id number] Access Code: [email or web address] URL: [email or web address] Date: 05-30-2025 Prepared By: Federico Ambriz Program [...] - 3 sets - 10 reps Normal [facility] CNCOon 05-15-2025 CNCO Letter Text Normal [facility] CNOVon 04-30-2025 CNOV Office Visit (PODIWS ) PATT CRANE ([id number]) 1980 F Date Time Provider Department 04/30/25 [...] time on their feet, such as nurses, rad technologist/waiters, and mail carriers, often experience plantar fasciitis. [...] after 2-3 (more content not included)... Normal [facility] [id number] 04-11-2025 [id number] HNO ID: [id number] Author: FEDERICO AMBRIZ PT Service: ? Author Type: Physical Therapist Type: [id number] Filed: 04/11/2025 13:00 Note Text: [facility] Physical Therapy Plan of Care Certification Patient Name: Patt Crane : 1980 [facility] #: [id number] Date: 04/11/2025 To: Emilia Griffiths DPM From [...] increase T-score by a minimum 5 points. [place] in home exercise program. Patient will decrease [...] Planned: 6 Planned Treatment Interventions: Therapeutic exercise (13227), Neuromuscular re-education (26061), Manual therapy (82243), Therapeutic activities (18885), Self-residential management (95639), Gait Training (16259), Patient/Family/Caregiv er Education, Body Mechanics Training PLAN [...] reviewed the treatment plan for Patt Crane, [facility]# [id number] for the period of 04/11/25 -- 05/23/25, established on 04/11/2025. Signature certifies the need for therapy services. Normal [facility] CNTHERAPYon 04-11-2025 CNTHERAPY OT/PT/Speech Visit (PTWS) ROYCE,PATT ([id number]) 1980 F Date Time Provider Department 04/11/25 11:15 AM FEDERICO AMBRIZ PTHIEU Date Time Provider Department [place] 04/11/2025 11:15 AM [id number], SEAN PTHIEU Galeas Reason for Visit: PT Eval [747] Visit Diagnoses:Pain of left heel [M79.672] Plantar fasciitis [M72.2] Allergies As of Date: 04/11/2025 Noted Allergy Reaction LATEX 04/30/2016 4 - Hives 9 - Itching PENICILLINS 09/06/2012 16 - Unknown Date Reviewed: 04/09/2025 Reviewed by: Garry Rodriguez APRN.GEOPHYSICAL LABORATORY SUPERVISOR - Fully Assessed Prescriptions as of 04/11/2025 [...] - Blood-Glucose Meter 1 Units once daily. Lidar Analyst: Addendum Therapy (PT/OT/Speech/Resp) ID: [id number] 04/11/2025 11:45 AM Author: FEDERICO AMBRIZ Signed by FEDERICO AMBRIZ PT on 04/11/2025 at 11:45 AM * * * This document replaces document [id number] * * * Document text: Program_ID:[id number] Access Code: [email or web address] URL: [email or web address] Date: 04-11-2025 Prepared By: Federico Ambriz Program [...] 3 sets - 20 reps -- Normal [facility] THERAPY NTon 04-11-2025 THERAPY NT HNO ID: [id number] Author: FEDERICO AMBRIZ PT Service: ? Author Type: Physical Therapist Type: Therapy (PT/OT/Speech/Resp) Filed: 04/11/2025 11:45 Note Text: Program_ID:[id number] Access Code: [email or web address] URL: [email or web address] Date: 04-11-2025 Prepared By: Federico Ambriz Program [...] - 3 sets - 20 reps Normal [facility] CNOVon 04-09-2025 CNOV Office Visit (DENISEFAMPLE) PATT CRANE ([id number]) 1980 F Date Time Provider Department 04/09/25 3:40 PM GARRY RODRIGUEZ During your visit today, we recorded the following information about you: Temperature Pulse Blood pressure Weight 98 degrees 103/minute 188/98 92.1 kg Height 1.6 m Garry Rodriguez, MRI ASSISTANT.[facility] 04/09/2025 4:17 PM Signed Subjective The patient consented to the use of [employer] software for draft documentation of the visit consistent with [facility]?s Notice of Privacy Practices. CHICHO Beltre [...] issues. Patt's Jardiance is prescribed by her all terrain vehicle technician, Keenan JARVIS, due to her history of cardiomyopathy, CVA, and NSTEMI. Her most recent visit with cardiology was on December 13, 2024. She experienced an NSTEMI in July 2023, with a cardiac catheterization revealing no obstructive stenosis and an ejection fraction of 20%. The [place] was likely secondary to demand ischemia from [...] for sh (more content not included)... Normal [facility] HEMOGLOBIN A1C (POC)on 04-09 HbA1c (Bld) [Mass fraction] 10.6 % Abnormal 4.3 - 5.6 % [facility] Comment on above: Location:[facility], [address] [place] [address], [address] Point of care (POC) Hemoglobin A1c (HGBA1C) [...] specific diabetes management situations: The POC device carpenter railcar provides a normal range of 4.2% to 6.5% for the HGBA1C POC test. However, the [place] Diabetes [employer] guidelines indicate that patients with [...] Interpretation and review of laboratory results Abnormal [facility] CNCOon 03-26-2025 CNCO Letter Text Normal [facility] CNOVon 03-26-2025 CNOV Office Visit (PODIWS ) PATT CRANE ([id number]) 1980 F Date Time Provider Department 03/26/25 [...] Established Patient, Follow Up, Numbness RONNY EspinosaEmilia fleming 03/26/2025 3:29 PM Addendum What is Plantar [...] time on their feet, such as nurses, rad technologist/waiters, and mail carriers, often experience plantar fasciitis. [...] local anesthe (more content not included)... Normal [facility] CBC panel Auto (Bld)on 03-22 Erythrocyte distribution width (RBC) [Ratio] 14.7 % Normal 11.5-15.0 [facility] Comment on above: Order Comment: Speci men Type: BLOOD SPECIMENOrdering Facility: [facility] Address: [address] [place] [address] Performed By: #### 5 8410-2 ####[facility] SANJUANA WADE [id number] [place] [address] [place] Hematocrit (Bld) [Volume fraction] 44.0 % Normal 36.0-46.0 [facility] Comment on above: Order Comment: Speci men Type: BLOOD SPECIMENOrdering Facility: [facility] Address: [address] [place] [address] Performed By: #### 5 8410-2 ####[facility] [id number] [place] [address] [place] Hemoglobin (Bld) [Mass/Vol] 14.1 g/dL Normal 11.5-15.5 [facility] Comment on above: Order Comment: Speci men Type: BLOOD SPECIMENOrdering Facility: [facility] Address: [address] [place] [address] Performed By: #### 5 8410-2 ####[facility]JULIENNEJose Miguel [id number] [place] [address] [place] MCH (RBC) [Entitic mass] 26.6 pg Normal 26.0-34.0 [facility] Comment on above: Order Comment: Speci men Type: BLOOD SPECIMENOrdering Facility: [facility] Address: [address] [place] [address] Performed By: #### 5 8410-2 ####[facility] [id number] [place] [address] [place] MCHC (RBC) [Mass/Vol] 32.0 g/dL Normal 30.5-36.0 [facility] Comment on above: Order Comment: Speci men Type: BLOOD SPECIMENOrdering Facility: [facility] Address: [address] [place] [address] Performed By: #### 5 8410-2 ####[facility] [id number] [place] [address] [place] MCV (RBC) [Entitic vol] 83.0 fL Normal 80.0-100.0 [facility] Comment on above: Order Comment: Speci men Type: BLOOD SPECIMENOrdering Facility: [facility] Address: [address] [place] [address] Performed By: #### 5 8410-2 ####[facility] [id number] [place] [address] [place] Nucleated RBC (Bld) [#/Vol] 10*3/uL Normal <0.01 [facility] Comment on above: Order Comment: Speci men Type: BLOOD SPECIMENOrdering Facility: [facility] Address: [address] [place] [address] Performed By: #### 5 8410-2 ####[facility] [id number] [place] [address] [place] Platelet mean volume (Bld) [Entitic vol] 9.5 fL Normal 9.0-12.7 [facility] Comment on above: Order Comment: Speci men Type: BLOOD SPECIMENOrdering Facility: [facility] Address: [address] [place] [address] Performed By: #### 5 8410-2 ####[facility] [id number] [place] [address] [place] Platelets (Bld) [#/Vol] 383 10*3/uL Normal 150-400 [facility] Comment on above: Order Comment: Speci men Type: BLOOD SPECIMENOrdering Facility: [facility] Address: [address] [place] [address] Performed By: #### 5 8410-2 ####[facility] [id number] [place] [address] [place] RBC (Bld) [#/Vol] 5.30 10*6/uL High 3.90-5.20 [facility] Comment on above: Order Comment: Speci men Type: BLOOD SPECIMENOrdering Facility: [facility] Address: [address] [place] [address] Performed By: #### 5 8410-2 ####[facility]OSPITALSavannahNCLIA [id number] [place] [address] [place] WBC (Bld) [#/Vol] 6.05 10*3/uL Normal 3.70-11.00 [facility] Comment on above: Order Comment: Speci men Type: BLOOD SPECIMENOrdering Facility: [facility] Address: [address] [place] [address] Performed By: #### 5 8410-2 ####[facility] [id number] [place] [address] [place] Comprehensive metabolic 2000 panelon 03-22-2025 Albumin [Mass/Vol] 4.3 g/dL Normal 3.9-4.9 [facility] Comment on above: Order Comment: Speci men Type: BLOOD SPECIMENOrdering Facility: [facility] Address: [address] [place] [address] Performed By: #### 2 777-1, 01980-7, 20589-7 ####[facility] [id number] [place] [address] [place] ALP [Catalytic activity/Vol] 90 U/L Normal 34-123 [facility] Comment on above: Order Comment: Speci men Type: BLOOD SPECIMENOrdering Facility: [facility] Address: [address] [place] [address] Performed By: #### 2 777-1, 73181-4, 77562-7 ####[facility] [id number] [address] [place] ALT [Catalytic activity/Vol] 12 U/L Normal 7-38 [facility] Comment on above: Order Comment: Speci men Type: BLOOD SPECIMENOrdering Facility: [facility] Address: [address] [place], [place] [address] Performed By: #### 2 777-1, 74028-9, ####[facility] SANJUANA PARKERNCTRANA [id number] [place] [address] [place] Anion gap [Moles/Vol] 8 mmol/L Normal 8-15 [facility] Comment on above: Order Comment: Speci men Type: BLOOD SPECIMENOrdering Facility: [facility] Address: [address] [place] [address] Performed By: #### 2 777-1, 73871-2, ####[facility] FRANCISCOREINALDONCTRANA [id number] [place] [address] [place] AST [Catalytic activity/Vol] 10 U/L Low 13-35 [facility] Comment on above: Order Comment: Speci men Type: BLOOD SPECIMENOrdering Facility: [facility] Address: [address] [place] [address] Performed By: #### 2 777-1, 09549-0, ####[facility] SANJUANA FRANCISCOREINALDONCLIA [id number] [place] [address] [place] Bilirubin [Mass/Vol] 0.4 mg/dL Normal 0.2-1.3 [facility] Comment on above: Order Comment: Speci men Type: BLOOD SPECIMENOrdering Facility: [facility] Address: [address] [place], [place] [address] Performed By: #### 2 777-1, 91158-7, ####[facility] FRANCISCOREINALDONCLIA [id number] [place] [address] [place] Calcium [Mass/Vol] 9.5 mg/dL Normal 8.5-10.2 [facility] Comment on above: Order Comment: Speci men Type: BLOOD SPECIMENOrdering Facility: [facility] Address: [address] [place], [place] [address] Performed By: #### 2 777-1, 48240-4, ####[facility] FRANCISCOCOBB ISLANDNCTRANA [id number] [place] [address] [place] Chloride [Moles/Vol] 102 mmol/L Normal 98-107 [facility] Comment on above: Order Comment: Speci men Type: BLOOD SPECIMENOrdering Facility: [facility] Address: [address] [place], [place] [address] Performed By: #### 2 777-1, 58449-1, ####[facility]ANNM[facility] [id number] [place] [address] [place] CO2 [Moles/Vol] 26 mmol/L Normal 22-30 [facility] Comment on above: Order Comment: Speci men Type: BLOOD SPECIMENOrdering Facility: [facility] Address: [address] [place] [address] Performed By: #### 2 777-1, 65372-5, ####[facility]AND[facility]CL[facility] [id number] [place] [address] [place] Creatinine [Mass/Vol] 0.83 mg/dL Normal 0.58-0.96 [facility] Comment on above: Order Comment: Speci men Type: BLOOD SPECIMENOrdering Facility: [facility] Address: [address] [place], [place] [address] Performed By: #### 2 777-1, 62406-0, 97580-5 ####[facility]AND[facility]CL[facility] [id number] [address] [place] Creatinine and Glomerular filtration rate.predicted panel (S/P/Bld) 90 mL/min/1.73m??? Normal >=60 [facility] Comment on above: Order Comment: Speci men Type: BLOOD SPECIMENOrdering Facility: [facility] Address: [address] [place] [address] Result Comment: Wilma mated Glomerular Filtration Rate [...] actual GFR. Performed By: #### 2 777-1, 23757-2, ####[facility] [id number] [place] [address] [place] Glucose [Mass/Vol] 207 mg/dL High 74-99 [facility] Comment on above: Order Comment: Mikki frazier Type: BLOOD SPECIMENOrdering Facility: [facility] Address: [address] [place] [address] Result Comment: The [place] Diabetes Association (ADA) provides guidance for cutoff [...] Standards of Medical Care in Diabetes 2016, [place] [employer] Association. Diabetes Care. 2016.39(Suppl 1). Performed By: #### 2 777-1, 21295-6, 77255-5 ####[facility]IT[facility] [id number] [place] [address] [place] Potassium [Moles/Vol] 4.4 mmol/L Normal 3.7-5.1 [facility] Comment on above: Order Comment: Mikki frazier Type: BLOOD SPECIMENOrdering Facility: [facility] Address: [address] [place] [address] Performed By: #### 2 777-1, 49372-1, 27158-8 ####[facility] FRANCISCOCOBB ISLANDNCLIA [id number] [place] [address] [place] Protein [Mass/Vol] 7.9 g/dL Normal 6.3-8.0 [facility] Comment on above: Order Comment: Speci men Type: BLOOD SPECIMENOrdering Facility: [facility] Address: [address] [place] [address] Performed By: #### 2 777-1, 42988-0, 30826-4 ####[facility] [id number] [place] [address] [place] Sodium [Moles/Vol] 136 mmol/L Normal 136-144 [facility] Comment on above: Order Comment: Speci men Type: BLOOD SPECIMENOrdering Facility: [facility] Address: [address] [place] [address] Performed By: #### 2 777-1, 15937-7, 57734-8 ####[facility] [id number] [place] [address] [place] Urea nitrogen [Mass/Vol] 15 mg/dL Normal 7-21 [facility] Comment on above: Order Comment: Speci men Type: BLOOD SPECIMENOrdering Facility: [facility] Address: [address] [place] [address] Performed By: #### 2 777-1, 93545-3, 24803-8 ####[facility] [id number] [place] [address] [place] Lipid 1996 panelon 5 Cholesterol [Mass/Vol] 144 mg/dL Normal <200 [facility] Comment on above: Order Comment: Speci men Type: BLOOD SPECIMENOrdering Facility: [facility] Address: [address] [place] [address] Result Comment: <200 mg/dL, Desirable 200-239 mg/dL, Borderline high >239 mg/dL, High Performed By: #### 2 4331-1 ####[facility] LABCLIA [id number] [address] [address] [facility] [id number] [place], [place] [address] [place] [address] [place] Cholesterol in HDL [Mass/Vol] 60 mg/dL Normal >39 [facility] Comment on above: Order Comment: Speci men Type: BLOOD SPECIMENOrdering Facility: [facility] Address: [address] [place] [address] Result Comment: 40-5 9 mg/dL, Acceptable >59 mg/dL, High: Negative risk factor for coronary heart disease <40 mg/dL, Low: Positive risk factor for coronary heart disease Performed By: #### 2 4331-1 ####[facility] LABCLIA [id number] [address], [id number] [place] [address] [place] Cholesterol in LDL [Mass/Vol] 70 mg/dL Normal <100 [facility] Comment on above: Order Comment: Speci men Type: BLOOD SPECIMENOrdering Facility: [facility] Address: [address] [place] [address] Result Comment: <100 mg/dL, Optimal 100-129 mg/dL, Near optimal/above optimal 130-159 mg/dL, Borderline high 160-189 mg/dL, High >189 mg/dL, Very high Secondary prevention optimal LDL Cholesterol levels are recommended to be <70 mg/dL LDL cholesterol is calculated using the Padgett-NIH equation. Performed By: #### 2 4331-1 ####[facility] LABCLIA [id number] [address] [address] [facility] [id number] [address] Cholesterol in LDL/Cholesterol in HDL [Mass ratio] 1.17 {ratio} Normal <2.54 [facility] Comment on above: Order Comment: Speci men Type: BLOOD SPECIMENOrdering Facility: [facility] Address: [address] [place] [address] Result Comment: Refe omid: 1. National Cholesterol Education Program ATP III Guideline At-A-Glance Quick Desk Reference: National Heart, Lung, and Blood Plain. National Institutes of Health. 2001: NIH Publication No. 01-3305. 2. An International Atherosclerosis Society position paper: global recommendations for the management of dyslipidemia: executive summary, Atherosclerosis. 2014: 232(2):410-413. Performed By: #### 2 4331-1 ####[facility] LABCLIA [id number] [address] [id number] [place] [address] STATES [facility] Cholesterol in VLDL [Mass/Vol] 10 mg/dL Normal <30 [facility] Comment on above: Order Comment: Speci men Type: BLOOD SPECIMENOrdering Facility: [facility] Address: [address] [place] [address] Performed By: #### 2 4331-1 ####[facility] LABCLIA [id number] [address] [id number] [place] [address] [place] Cholesterol non HDL [Mass/Vol] 84 mg/dL Normal <130 [facility] Comment on above: Order Comment: Speci men Type: BLOOD SPECIMENOrdering Facility: [facility] Address: [address] [place] [address] Result Comment: <130 mg/dL, Optimal 130-159 mg/dL, Near optimal/above optimal 160-189 mg/dL, Borderline high 190-219 mg/dL, High >219 mg/dL, Very high Secondary prevention optimal non HDL Cholesterol levels are recommended to be <100 mg/dL Performed By: #### 2 4331-1 ####[facility] LABCLIA [id number] [address] [id number] [address] Cholesterol.total/Cynthia sterol in HDL [Mass ratio] 2.40 {ratio} Normal <5.10 [facility] Comment on above: Order Comment: Speci men Type: BLOOD SPECIMENOrdering Facility: [facility] Address: [address] [place] [address] Performed By: #### 2 4331-1 ####[facility] LABCLIA [id number] [id number] [place] [address] FASTING TIME 9 hrs Normal [facility] Comment on above: Order Comment: Speci men Type: BLOOD SPECIMENOrdering Facility: [facility] Address: [address] [place] [address] Performed By: #### 2 4331-1 ####[facility] LABCLIA [id number] [address] [id number] [place] [address] Triglyceride [Mass/Vol] 70 mg/dL Normal <150 [facility] Comment on above: Order Comment: Speci men Type: BLOOD SPECIMENOrdering Facility: [facility] Address: [address] [place] [address] Result Comment: <150 mg/dL, Normal 150-199 mg/dL, Borderline high 200-499 mg/dL, High >499 mg/dL, Very high Performed By: #### 2 4331-1 ####[facility] LABCLIA [id number] [place] [address] [place] [facility] [id number] [place] [address] [place] Magnesium SerPl-mCncon 03-22 Magnesium [Mass/Vol] 1.9 mg/dL Normal 1.7-2.3 [facility] Comment on above: Order Comment: Speci men Type: BLOOD SPECIMENOrdering Facility: [facility] Address: [address] [place] [address] Performed By: #### 2 777-1, 46937-3, 60854-6 ####[facility] [id number] [place] [address] [place] Phosphate SerPl-mCncon 03-22 Phosphate [Mass/Vol] 3.3 mg/dL Normal 2.7-4.8 [facility] Comment on above: Order Comment: Speci men Type: BLOOD SPECIMENOrdering Facility: [facility] Address: [address] [place] [address] Performed By: #### 2 777-1, 28680-8, ####[facility] [id number] [place] [address] [place] CNOVon 01-09-2025 CNOV Office Visit (PODIWS ) PATT CRANE ([id number]) 1980 F Date Time Provider Department 01/09/25 [...] 01/12/2024 9.4 08/20/2023 10.7 PCP: Garry Rodriguez APRN.GEOPHYSICAL LABORATORY SUPERVISOR PAST MEDICAL HISTORY Diagnosis Date cardiomyopathy, 09/05/2012 [...] digits Neur (more content not included)... Normal [facility] .Auto Diffon 12-13-2024 Basophil, Absolute 0.0 10 3/mcL Normal 0.0-0.2 [facility] Comment on above: Performed By: #### A DIFF, CBC, HCGQ, ANEU #### [address] [address] Basophils/100 WBC (Bld) 0.7 % Normal 0.0-2.5 [facility] Comment on above: Performed By: #### A DIFF, CBC, HCGQ, ANEU #### [address] [address] Eosinophil, Absolute 0.2 10 3/mcL Normal 0.0-0.7 [facility] Comment on above: Performed By: #### A DIFF, CBC, HCGQ, ANEU #### [address] [address] Eosinophils/100 WBC (Bld) 3.2 % Normal 0.0-7.0 [facility] Comment on above: Performed By: #### A DIFF, CBC, HCGQ, ANEU #### [address] [address] Lymphocyte, Absolute 1.6 10 3/mcL Normal 0.9-4.3 [facility] Comment on above: Performed By: #### A DIFF, CBC, HCGQ, ANEU #### [address] [address] Lymphocytes/100 WBC (Bld) 32.0 % Normal 20.0-40.0 [facility] Comment on above: Performed By: #### A DIFF, CBC, HCGQ, ANEU #### [address] [address] Monocyte, Absolute 0.5 10 3/mcL Normal 0.1-1.4 [facility] Comment on above: Performed By: #### A DIFF, CBC, HCGQ, ANEU #### [address] [address] Monocytes/100 WBC (Bld) 10.3 % Normal 2.0-13.0 [facility] Comment on above: Performed By: #### A DIFF, CBC, HCGQ, ANEU #### [address] [address] Neutrophils/100 WBC (Bld) 53.8 % Normal 50.0-75.0 [facility] Comment on above: Performed By: #### A DIFF, CBC, HCGQ, ANEU #### [address] [address] .NEUABSon 12-13-2024 Neutrophil, Absolute 2.7 10 3/mcL Normal 2.3-8.1 [facility] Comment on above: Performed By: #### A DIFF, CBC, HCGQ, ANEU #### [address] [address] CBCon 12-13-2024 Erythrocyte distribution width (RBC) [Ratio] 15.2 % Normal 11.5-15.5 [facility] Comment on above: Performed By: #### A DIFF, CBC, HCGQ, ANEU #### [address] [address] Hematocrit (Bld) [Volume fraction] 41.1 % Normal 34.0-46.0 [facility] Comment on above: Performed By: #### A DIFF, CBC, HCGQ, ANEU #### [address] [address] Hgb 13.4 G/dL Normal 12.0-16.0 [facility] Comment on above: Performed By: #### A DIFF, CBC, HCGQ, ANEU #### [address] [address] MCH (RBC) [Entitic mass] 26.9 pg Low 27.0-33.0 [facility] Comment on above: Performed By: #### A DIFF, CBC, HCGQ, ANEU #### [address] [address] MCHC 32.6 G/dL Normal 32.0-36.0 [facility] Comment on above: Performed By: #### A DIFF, CBC, HCGQ, ANEU #### [address] [address] MCV (RBC) [Entitic vol] 82.7 fL Normal 80.0-99.0 A [facility] Comment on above: Performed By: #### A DIFF, CBC, HCGQ, ANEU #### [address] [address] Platelet 355 10 3/mcL Normal 150-450 [facility] Comment on above: Performed By: #### A DIFF, CBC, HCGQ, ANEU #### [address] [address] Platelet mean volume (Bld) [Entitic vol] 7.7 fL Normal 6.6-10.5 [facility] Comment on above: Performed By: #### A DIFF, CBC, HCGQ, ANEU #### [address] [address] RBC 4.97 10 6/mcL Normal 4.10-5.30 [facility] Comment on above: Performed By: #### A DIFF, CBC, HCGQ, ANEU #### [address] [address] WBC 5.0 10 3/mcL Normal 4.5-10.8 [facility] Comment on above: Performed By: #### A DIFF, CBC, HCGQ, ANEU #### [address] [address] Cardiology Visit Reporton Cardiology Visit Report [facility] 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 Normal [facility] HCGQon 12-13-2024 hCG, quantitative 8.4 mIU/mL Normal [facility] Comment on above: Result Comment: HCG Levels [...] #### A DIFF, CBC, HCGQ, ANEU #### [place] [address] LABORATORYOrdered By: SYSTEM SYSTEM on 12-13-2024 Basophils [...] CNPNon 12-12-2024 CNPN Telephone (AGFAMPLE) PATT CRANE ([id number]) 1980 F Date Time Provider Department 12/12/24 GARRY RODRIGUEZ During your visit today, we recorded the following information about you: Akshat Quesada MA 12/12/2024 7:18 AM Signed Received fax that ozempic was denied. Placed in red folder to review. JOHN Douglas Kristin C, APRN.GEOPHYSICAL LABORATORY SUPERVISOR 12/12/2024 5:54 PM Signed I called her [...] Encounter Status:Closed by AKSHAT QUESADA on 12/12/24 [facility] Micheline 12-11-2024 WILL Telephone ([employer]MPLE) PATT CRANE ([id number]) 1980 F Date Time Provider Department 12/11/24 GARRY RODRIGUEZ During your visit today, we recorded the following information about you: Akshat Quesada MA 12/11/2024 7:24 AM Signed ----- Message from Garry Rodriguez APRN.GEOPHYSICAL LABORATORY SUPERVISOR sent at 12/10/2024 9:25 AM EST ----- [...] Status:Closed by CARMEL DENNISON on 12/11/24 Normal [facility] XR Foot - left AP and Latera l and obliqueon 12-08-2024 IMPRESSION: No acute radiographic abnormality. Interlocker: HODA Transcribe Date/Time: Dec 08 2024 11:36A Dictated by : YUAN ROBLES MD This examination was interpreted and the report reviewed and electronically signed by: YUAN ROBLES MD on Dec 08 2024 11:37AM EST [facility] * * *Final Report* * [...] spur. This is probably not clinically significant. [facility] Provider, Asia Ziegler Amish - [...] significant. IMPRESSION IMPRESSION: No acute radiographic abnormality. Interlocker: PSCB Transcribe Date/Time: Dec 08 2024 11:36A Dictated by : YUAN ROBLES MD This examination was interpreted and the report reviewed and electronically signed by: YUAN ROBLES MD on Dec 08 2024 11:37AM EST [facility] XR Foot - left AP and Latera l and obliqueOrdered By: Ccf [facility] on [facility] WILL Telephone (ENRIQUEITZEL) PATT CRANE ([id number]) 1980 F Date Time Provider Department 12/07/24 GARRY RODRIGUEZ During your visit today, we recorded the following information about you: Akshat Quesada MA 12/07/2024 7:20 AM Signed Received fax from [facility] stating eriberto denied ozempic. Please advise. JOHN Douglas Mary, MA 12/08/2024 5:17 PM Signed Received fax from medicaid for ozempic to be filled out. Placed in red folder. JOHN Douglas Kristin C, APRN.[facility] 12/11/2024 10:35 AM Signed Thank you, [...] Status:Closed by AKSHAT QUESADA on 12/07/24 Normal [facility] ALBUMIN/CREATININE RATIO, UR INEon 12-06-2024 Albumin Unsp time DL <= 20 mg/L (U) [Mass/Time] mg/L mg/L [facility] Albumin/Creatinine (U) [Mass ratio] mg/g NINF - 30 mg/g [facility] Comment on above: Adult Male and [...] [Mass/Vol] 64.8 mg/dL 42.2 - 237.9 mg/dL [facility] Albumin Unsp time DL <= 20 mg/L (U) [Mass/Time] <12.0 Normal [facility] Comment on above: Order Comment: Speci men Type: URINE SPECIMEN [facility] Address: [address] [place] [address] Performed By: #### U ACR #### [facility] CLIA [id number] [address] Albumin/Creatinine (U) [Mass ratio] <19 Normal <30 [facility] Comment on above: Order Comment: Speci men Type: URINE SPECIMEN [facility] Address: [address] [place] [address] Result Comment: Adul t Male and Female [...] ACR #### [facility] CLIA [id number] [address] Creatinine (U) [Mass/Vol] 64.8 mg/dL Normal 42.2-237.9 [facility] Comment on above: Order Comment: Speci men Type: URINE SPECIMEN [facility] Address: [address] [place] [address] Performed By: #### U ACR #### [facility] CLIA [id number] [address] CNOVon 12-06-2024 CNOV Office Visit ([place]) PATT CRANE ([id number]) 1980 F Date Time Provider Department 12/06/24 1:20 PM GARRY RODRIGUEZ During your visit today, we recorded the following information about you: Temperature Pulse Respiration Blood pressure 98 degrees 56/minute 16/minute 122/62 Weight Height 91.2 kg 1.6 m Garry Rodriguez, MRI ASSISTANT.GEOPHYSICAL LABORATORY SUPERVISOR 12/11/2024 10:35 AM Signed Subjective Patt Crane [...] screening - Dr Briones is her OBGYN [place] Colorectal cancer screening - na Osteoporosis screening [...] Jardiance for cardiomyopathy, she continues care with [facility] cardiology - Dr Blanco Has [...] or abdominal (more content not included)... Normal [facility] HEMOGLOBIN A1C (POC)on 12-06 HbA1c (Bld) [Mass fraction] 8.9 % Abnormal 4.3 - 5.6 % [facility] Comment on above: Location:[facility], [address] [place] [address], [facility] Point of care (POC) Hemoglobin A1c (HGBA1C) [...] specific diabetes management situations: The POC device carpenter railcar provides a normal range of 4.2% to 6.5% for the HGBA1C POC test. However, the [place] [employer] guidelines indicate that patients with [...] Interpretation and review of laboratory results Abnormal [facility] XR FOOT 3V AP/LAT/OBL LTon 0 [...] clinically significant. IMPRESSION: No acute radiographic abnormality. Interlocker: HODA Transcribe Date/Time: Dec 08 2024 11:36A Dictated by : YUAN ROBLES MD This examination was interpreted and the report reviewed and electronically signed by: YUAN ROBLES MD on Dec 08 2024 11:37AM EST [id number] Normal [facility] XR Foot - left AP and Latera l and obliqueon 12-06-2024 Radiology Study observation (narrative) [facility] CNCOon 11-27-2024 CNCO Letter Text Normal [facility] HCGQon 11-24-2024 hCG, quantitative 4613.6 mIU/mL Normal [facility] Comment on above: Result Comment: HCG [...] Performed By: #### H CGYared PREGS #### [place] [address] LABORATORYOrdered By: Judith Dickson on 11-24-2024 HCG [...] mIU/mL PREGSon 11-24-2024 test (s) Positive Normal [facility] Comment on above: Order Comment: +VE U PT at home. Performed By: #### H CGQ, PREGS #### [address] [address] test (s) int Detected Invalid Interpretation Code [facility] Comment on above: Order Comment: +VE U PT at home. Performed By: #### H CGQ, PREGS #### [place] [id number] CT CHEST WO IVCONon 11-16-[address] CHEST WO IVCON * * *Final Report* * * DATE OF EXAM: Nov 16 2024 3:49PM [facility] 0541 - CT CHEST WO IVCON [...] the chest. Sequela of remote granulomatous disease. Interlocker: PSCB Transcribe Date/Time: Nov 20 2024 3:56P Dictated by : CAROL CALLAWAY MD This examination was interpreted and the report reviewed and electronically signed by: CAROL CALLAWAY MD on Nov 20 2024 4:01PM EST [id number] Normal [facility] 10-09-2024 [facility] ([id number]) 1980 F Date Time Provider Department 10/09/24 GARRY RODRIGUEZ During your visit today, we recorded the following information about you: Carmel Dennison MA 10/09/2024 7:42 AM Signed ----- Message from Pilar Sultana MA sent at 10/07/2023 10:14 AM EST ----- Patient due for [address] chest to monitor small lung nodule. JOHN Pritchett Kristin C, APRN.[facility] 10/09/2024 2:23 PM Signed Thank you. Please see orders. Garry Rodriguez APRN.Akshat Laws MA 10/09/2024 2:36 PM Signed Patient aware. Akshat Quesada MA Allergies As of Date: 10/09/2024 Noted Allergy Reaction LATEX 04/30/2016 4 - Hives 9 - Itching PENICILLINS 09/06/2012 16 - Unknown Date Reviewed: 01/15/2024 Reviewed by: Garry Rodriguez APRN.GEOPHYSICAL LABORATORY SUPERVISOR - Fully Assessed Reason for Visit: Orders [681] Primary Visit Diagnosis:Lung nodule [R91.1] Order(s):CT CHEST WO IVCON [[id number]] Order #: [id number] FUTURE Prescriptions as of 10/09/2024 - dulaglutide [...] AKSHAT QUESADA on 10/09/24 Normal [facility] 05-10-2024 Hematocrit (Bld) [Volume fraction] 41.4 % Normal 37.0-47.0 [facility] [place] Comment on above: Performed By: #### H H #### [place] [address] [address] Hgb 13.5 G/dL Normal 12.0-16.0 [facility] [place] Comment on above: Performed By: #### H H #### [place] [address] [address] LABORATORYOrdered By: SYSTEM SYSTEM on 05-10-2024 Hematocrit [...] 02/16/2024 3:21:09 PM Ordering Provider: KRISTYN Dexter [facility] [place] HEMOGLOBIN A1C (POC)on 01-12 HbA1c (Bld) [Mass fraction] 9.4 % Abnormal 4.3 - 5.6 % [facility] Reporton 2022 [facility] Report . Pathology Reports Accession: Collected Date/Time: Received Date/Time: Pathologist: [id number] 10/27/2023 10:33 EST 10/27/2023 18:00 EST [facility] Report SPECIMEN: Specimen Description: Liquid Prep [...] and evaluated with the assistance of the [employer] ThinPrep Test Imaging System. Pathology Reports Accession: Collected Date/Time: Received Date/Time: Pathologist: [id number] 10/27/2023 10:33 EST 10/27/2023 18:00 EST Electronically Signed by Pathology report verified by [facility] Screened by: [place] Electronically signed by Julisa CARDONA (ASCP) Sign-Out Date: 11/01/2023 15:52 Performing Lab: [facility], [address] [place] [address] Pathology Dept Disclaimer The Pap test is a screening test for cervical cancer. As evidenced by published data, it is subject to both inherent false negative and false positive results. Your patient's results should be interpreted in context with pertinent clinical history including gynecological examination. Normal [facility] ([place] HPVon 11-01-2023 HPV Interp Normal See Inter HPVN [facility]) Comment on above: Order Comment: Order placed by AP_HPV_ORDER rule from [id number] Result Comment: High Risk HPV Typing: NEGATIVE [...] and sufficient DNA to be detected. See [facility] HPVN Performed By: #### H PV #### [place] [address] HPV Source Cervix Normal [facility]) Comment on above: Order Comment: Order placed by AP_HPV_ORDER rule from [id number] Performed By: #### H PV #### [place] [address] Basophil percentageOrdered B y: Alexia Stacy on 10-12-2023 Chloride [Moles/Vol] 106 mmol/L 98-107 [facility] Glucose [Mass/Vol] 262 mg/dL 74-106 [facility] Comment on above: Glucose result great er than or equal to 200 mg/dLsuggests DIABETES MELLITUS per A.D.A. criteria. Potassium [Moles/Vol] 3.9 mmol/L 3.5-5.1 [facility] Sodium [Moles/Vol] 138 mmol/L 136-145 [facility] Laboratory - Chemistry and C hemistry - challengeOrdered By: Alexia Stcay on 10-12-2023 CO2 [Moles/Vol] 27.0 mmol/L 21.0-32.0 [facility] Urea nitrogen/Creatinine [Mass ratio] 12.6 mg/mg 10-20 [facility] No Panel InformationOrdered By: Alexia Stacy on 10-12-2023 Estimated GFR (MDRD) Amer 64 mL/min >60 [facility] Comment on above: GFR Calc Estimated GFR (MDRD) Non-Af Amer 53 mL/min >60 [facility] Comment on above: Non- GFR Calc Serum or plasma calcium lamra urement (mass/volume)Ordered By: Alexia Stacy on 10-12-2023 Calcium [Mass/Vol] 8.8 mg/dL 8.5-10.1 [facility] Serum or plasma creatinine m easurement (mass/volume)Ordered By: Alexia Stacy on 10-12-2023 Creatinine [Mass/Vol] 1.19 mg/dL 0.55-1.02 [facility] Comment on above: The validity of the calculated GFR & GFRAA in patients over 70 years has not been determined. Clinical correlation is essential. Serum or plasma urea nitroge n measurement (mass/volume)Ordered By: Alexia Stacy on 10-12-2023 Urea nitrogen [Mass/Vol] 15 mg/dL 7-18 [facility] Thin prep Papanicolaou smear with manual screeningOrdered By: Alexia Stacy on 10-12-2023 Thin prep Papanicolaou smear with manual screening 5- [facility] CT ABD/PEL W IVCONon 023 Radiology Result ACTIONABLE Abnormal [facility] Absolute lymphocyte countOrd ered By: Alexia Stacy on 09-21-2023 Lymphocytes Auto (Unsp spec) [#/Vol] 1.27 10*3/uL 0.83-4.51 [facility] Basophil percentageOrdered B y: Alexia Stacy on 09-21-2023 Basophils/100 WBC (Bld) 0.5 % 0-1 [facility] Chloride [Moles/Vol] 108 mmol/L 98-107 [facility] [facility] Eosin[facility]/100 WBC (Bld) 2.7 % 0-5 [facility] Glucose [Mass/Vol] 217 mg/dL 74-106 [facility] Comment on above: Glucose result great er than or equal to 200 mg/dLsuggests DIABETES MELLITUS per A.D.A. criteria. Neutrophils (Bld) [#/Vol] 3.2 10*3/uL 2.0-7.7 [facility] Neutrophils/100 WBC (Bld) 58.1 % 47-70 [facility] Potassium [Moles/Vol] 3.8 mmol/L 3.5-5.1 [facility] Sodium [Moles/Vol] 139 mmol/L 136-145 [facility] WBC (Bld) [#/Vol] 5.5 10*3/uL 4.4-11.0 [facility] Blood erythrocytes count (nu mber/volume)Ordered By: Alexia Stacy on 09-21-2023 RBC (Bld) [#/Vol] 4.80 10*6/uL 4.2-5.4 [facility] Blood hemoglobin measurement (mass/volume)Ordered By: Alexia Stacy on 09-21-2023 Hemoglobin (Bld) [Mass/Vol] 12.0 g/dL 12.0-15.0 [facility] Blood lymphocytes/100 leukoc ytesOrdered By: Alexia Stacy on 09-21-2023 Lymphocytes/100 WBC (Bld) 23.3 % 19-41 [facility] Blood monocytes/100 leukocyt esOrdered By: Alexia Stacy on 09-21-2023 Monocytes/100 WBC (Bld) 13.9 % 0-10 [facility] Blood platelet mean volumeOr dered By: Alexia Stacy on 09-21-2023 Platelet mean volume (Bld) [Entitic vol] 10.3 fL 6.2-12.0 [facility] Determination of erythrocyte mean corpuscular volume (MCV)Ordered By: Alexia Stacy on 09-21-2023 MCV (RBC) [Entitic vol] 82.9 fL 81-99 [facility] Hematocrit Auto (Bld) [Volum e fraction]Ordered By: Alexia Stacy on 09-21-2023 Hematocrit (Bld) [Volume fraction] 39.8 % 37-47 [facility] Laboratory - Chemistry and C hemistry - challengeOrdered By: Alexia Stacy on 09-21-2023 CO2 [Moles/Vol] 24.0 mmol/L 21.0-32.0 [facility] Natriuretic peptide B (Bld) [Mass/Vol] 463.1 pg/mL 0-100 [facility] Urea nitrogen/Creatinine [Mass ratio] 11.0 mg/mg 10-20 [facility] Laboratory - Hematology and Cell countsOrdered By: Alexia Stacy on 09-21-2023 Erythrocyte distribution width (RBC) [Entitic vol] 44.7 fL 35.1-43.9 [facility] Erythrocyte distribution width (RBC) [Ratio] 14.8 % 11.6-14.6 [facility] Immature granulocytes/100 WBC (Bld) 1.500 % 0.0-0.9 [facility] Comment on above: IG% - Immature Granu locytes (promyelocytes, myelocytes and metamyelocytes) > 1% indicates that a LEFT SHIFT is Present. MCH (RBC) [Entitic mass] 25.0 pg 27.0-32.0 [facility] Nucleated RBC/100 WBC (Bld) [Ratio] 0 % 0-5 [facility] MCHC Auto (RBC) [Mass/Vol]Or dered By: Alexia Stacy on 09-21-2023 MCHC (RBC) [Mass/Vol] 30.2 g/dL 32-36 [facility] No Panel InformationOrdered By: Alexia Stacy on 09-21-2023 Estimated GFR (MDRD) Amer 78 mL/min >60 [facility] Comment on above: GFR Calc Estimated GFR (MDRD) Non-Af Amer 65 mL/min >60 [facility] Comment on above: Non- GFR Calc Platelets bldOrdered By: Raphael Stacy on 09-21-2023 Platelets (Bld) [#/Vol] 362 10*3/uL 150-450 [facility] Serum or plasma calcium lamar urement (mass/volume)Ordered By: Alexia Stacy on 09-21-2023 Calcium [Mass/Vol] 8.7 mg/dL 8.5-10.1 [facility] Serum or plasma creatinine m easurement (mass/volume)Ordered By: Alexia Stacy on 09-21-2023 Creatinine [Mass/Vol] 1.00 mg/dL 0.55-1.02 [facility] Comment on above: The validity of the calculated GFR & GFRAA in patients over 70 years has not been determined. Clinical correlation is essential. Serum or plasma urea nitroge n measurement (mass/volume)Ordered By: Alexia Stacy on 09-21-2023 Urea nitrogen [Mass/Vol] 11 mg/dL - [facility] Thin prep Papanicolaou smear with manual screeningOrdered By: Alexia Stacy on 09-21-2023 Thin prep Papanicolaou smear with manual screening 04-12 [facility] No Panel Informationon 09-15 Radiology Result ACTIONABLE Ab[facility] Basophil percentageOrdered B y: Ha Echevarria on 08-12-2023 Chloride [Moles/Vol] 108 mmol/L 98-107 [facility] Cholesterol [Mass/Vol] 115 mg/dL <200 [facility] Comment on above: <200 mg/dL Desirable 200-240 mg/dL Borderline >240 mg/dL High Risk Glucose [Mass/Vol] 272 mg/dL 74-106 [facility] Comment on above: Glucose result great er than or equal to 200 mg/dLsuggests DIABETES MELLITUS per A.D.A. criteria. Potassium [Moles/Vol] 3.9 mmol/L 3.5-5.1 [facility] Sodium [Moles/Vol] 137 mmol/L 136-145 [facility] Triglyceride [Mass/Vol] 99 mg/dL <199 [facility] Comment on above: The drugs N-Acetylcy steine and Metamizole may falsely depress this assay.Serum Triglycerides Reference Interval Normal <150 mg/dL Borderline high 150 - 199 mg/dL High 200 - 499 mg/dL Very High > or = 500 mg/dL WBC (Bld) [#/Vol] 6.7 10*3/uL 4.4-11.0 [facility] Blood erythrocytes count (nu mber/volume)Ordered By: Ha Echevarria on 08-12-2023 RBC (Bld) [#/Vol] 4.30 10*6/uL 4.2-5.4 [facility] Blood hemoglobin measurement (mass/volume)Ordered By: Ha Echevarria on 08-12-2023 Hemoglobin (Bld) [Mass/Vol] 11.4 g/dL 12.0-15.0 [facility] Blood platelet mean volumeOr dered By: Ha Echevarria on 08-12-2023 Platelet mean volume (Bld) [Entitic vol] 9.9 fL 6.2-12.0 [facility] Determination of erythrocyte mean corpuscular volume (MCV)Ordered By: Ha Echevarria on 08-12-2023 MCV (RBC) [Entitic vol] 84.7 fL 81-99 [facility] Glucose Glucometer (BldC) [M ass/Vol]Ordered By: Aj Colon on 08-12-2023 Glucose [Mass/Vol] 216 mg/dL 74-106 [facility] Comment on above: MANAGEMENT OF PATIEN T CARE PER NURSING PROTOCOL Hematocrit Auto (Bld) [Volum e fraction]Ordered By: Ha Echevarria on 08-12-2023 Hematocrit (Bld) [Volume fraction] 36.4 % 37-47 [facility] Laboratory - Chemistry and C hemistry - challengeOrdered By: Ha Echevarria on 08-12-2023 CO2 [Moles/Vol] 24.0 mmol/L 21.0-32.0 [facility] Urea nitrogen/Creatinine [Mass ratio] 7.7 mg/mg 10-20 [facility] Laboratory - CoagulationOrde red By: Ha Echevarria on 08-12-2023 aPTT Coag (Bld) [Time] 46.2 s 24.1-36.2 [facility] Laboratory - Hematology and Cell countsOrdered By: Ha Echevarria on 08-12-2023 Erythrocyte distribution width (RBC) [Entitic vol] 44.0 fL 35.1-43.9 [facility] Erythrocyte distribution width (RBC) [Ratio] 14.5 % 11.6-14.6 [facility] MCH (RBC) [Entitic mass] 26.5 pg 27.0-32.0 [facility] MCHC Auto (RBC) [Mass/Vol]Or dered By: Ha Echevarria on 08-12-2023 MCHC (RBC) [Mass/Vol] 31.3 g/dL 32-36 [facility] No Panel InformationOrdered By: Ha Echevarria on 08-12-2023 Estimated Creatinine Clearance Calc 66.62 ml/min [facility] Estimated GFR (MDRD) Amer 87 mL/min >60 [facility] Comment on above: GFR Calc Estimated GFR (MDRD) Non-Af Amer 72 mL/min >60 [facility] Comment on above: Non- GFR Calc Troponin I High Sensitivity 2114 pg/mL 3.0-54.0 [facility] Comment on above: Critical Result(s) C alled at: 00:43:05 08/12/2023 by: DANA SAENZ TO PIPER ANDERSON RN (U) Results read back by same. Please Note: New Test Units and Gender Specific Reference Ranges. For more information see Policy Stat Procedure Pandora High Sensitivity Troponin (TNIH) and attachments. Platelets bldOrdered By: Olman Echevarria on 08-12-2023 Platelets (Bld) [#/Vol] 278 10*3/uL 150-450 [facility] Serum or plasma calcium lamar urement (mass/volume)Ordered By: Ha Echevarria on 08-12-2023 Calcium [Mass/Vol] 8.3 mg/dL 8.5-10.1 [facility] Serum or plasma cholesterol in HDL measurement (mass/volume)Ordered By: Ha Echevarria on 08-12-2023 Cholesterol in HDL [Mass/Vol] 48 mg/dL >40 [facility] Comment on above: The drugs N-Acetylcy steine and Metamizole may falsely depress this assay. Reference Range HDL <40 mg/dL Low HDL Cholesterol HDL >or= 60 mg/dL High HDL Cholesterol Serum or plasma cholesterol in VLDL measurement (mass/volume)Ordered By: Ha Echevarria on 08-12-2023 Cholesterol in VLDL [Mass/Vol] 20 mg/dL 5-40 [facility] Serum or plasma creatinine m easurement (mass/volume)Ordered By: Ha Echevarria on 08-12-2023 Creatinine [Mass/Vol] 0.91 mg/dL 0.55-1.02 [facility] Comment on above: The validity of the calculated GFR & GFRAA in patients over 70 years has not been determined. Clinical correlation is essential. Serum or plasma low density lipoprotein (LDL) cholesterol measurement (mass/volume)Ordered By: Ha Echevarria on 08-12-2023 Cholesterol in LDL [Mass/Vol] 47 mg/dL 0-130 [facility] Serum or plasma urea nitroge n measurement (mass/volume)Ordered By: Ha Echevarria on 08-12-2023 Urea nitrogen [Mass/Vol] 7 mg/dL 7-18 [facility] Thin prep Papanicolaou smear with manual screeningOrdered By: Ha Bedoyahope on 08-12-2023 Thin prep Papanicolaou smear with manual screening 5 5-15 [facility] Absolute lymphocyte countOrd ered By: Placido Lupaco on 08-11-2023 Lymphocytes Auto (Unsp spec) [#/Vol] 1.43 10*3/uL 0.83-4.51 [facility] Basophil percentageOrdered B y: Placido Becky on 08-11-2023 Basophil percentage 0 SEEN /hpf 0-5 [facility] Basophils/100 WBC (Bld) 0.6 % 0-1 [facility] Bilirubin [Mass/Vol] 0.60 mg/dL 0.20-1.00 [facility] Comment on above: For patients on eltr ombopag therapy, use of Dimension Pandora TBIL is not recommended. Chloride [Moles/Vol] 106 mmol/L 98-107 [facility] Eosinophils/100 WBC (Bld) 1.3 % 0-5 [facility] Glucose [Mass/Vol] 280 mg/dL 74-106 [facility] Comment on above: Glucose result great er than or equal to 200 mg/dLsuggests DIABETES MELLITUS per A.D.A. criteria. Neutrophils (Bld) [#/Vol] 3.4 10*3/uL 2.0-7.7 [facility] Neutrophils/100 WBC (Bld) 63.5 % 47-70 [facility] Potassium [Moles/Vol] 3.3 mmol/L 3.5-5.1 [facility] Protein [Mass/Vol] 6.8 g/dL 6.4-8.2 [facility] Sodium [Moles/Vol] 135 mmol/L 136-145 [facility] WBC (Bld) [#/Vol] 5.4 10*3/uL 4.4-11.0 [facility] Beta hCG serum qualOrdered B y: Placido Lupaco on 08-11-2023 Beta HCG ( test) Ql Negative [facility] Bilirubin Test strip Ql (U)O rdered By: Placido Pena on 08-11-2023 Bilirubin Ql (U) Negative Negative [facility] Blood erythrocytes count (nu mber/volume)Ordered By: Placido Pena on 08-11-2023 RBC (Bld) [#/Vol] 4.41 10*6/uL 4.2-5.4 [facility] Blood hemoglobin measurement (mass/volume)Ordered By: Placido Pena on 08-11-2023 Hemoglobin (Bld) [Mass/Vol] 11.8 g/dL 12.0-15.0 [facility] Blood lymphocytes/100 leukoc ytesOrdered By: Placido Pena on 08-11-2023 Lymphocytes/100 WBC (Bld) 26.6 % 19-41 [facility] Blood monocytes/100 leukocyt esOrdered By: Placido Pena on 08-11-2023 Monocytes/100 WBC (Bld) 7.6 % 0-10 [facility] Blood platelet mean volumeOr dered By: Placido Pena on 08-11-2023 Platelet mean volume (Bld) [Entitic vol] 10.1 fL 6.2-12.0 [facility] Determination of erythrocyte mean corpuscular volume (MCV)Ordered By: Placido Pena on 08-11-2023 MCV (RBC) [Entitic vol] 85.7 fL 81-99 [facility] Hematocrit Auto (Bld) [Volum e fraction]Ordered By: Placido Pena on 08-11-2023 Hematocrit (Bld) [Volume fraction] 37.8 % 37-47 [facility] INR in Blood by Coagulation assayOrdered By: Placido Pena on 08-11-2023 INR Coag (Bld) [Relative time] 1.1 {INR} [facility] Ketones Test strip Ql (U)Ord ered By: Placido Pena on 08-11-2023 Ketones Ql (U) 5 mg/dl Negative [facility] Laboratory - Chemistry and C hemistry - challengeOrdered By: Placido Pena on 08-11-2023 ALP [Catalytic activity/Vol] 91 U/L 45-117 [facility] ALT [Catalytic activity/Vol] 105 U/L 13-56 [facility] CO2 [Moles/Vol] 25.0 mmol/L 21.0-32.0 [facility] Globulin (S) [Mass/Vol] 3.6 g/dL 2.2-4.2 [facility] Urea nitrogen/Creatinine [Mass ratio] 8.0 mg/mg 10-20 [facility] Laboratory - CoagulationOrde red By: Placido Pena on 08-11-2023 aPTT Coag (Bld) [Time] 24.6 s 24.1-36.2 [facility] PT Coag (PPP) [Time] 14.1 s 11.7-14.9 [facility] Laboratory - Hematology and Cell countsOrdered By: Placido Pena on 08-11-2023 Erythrocyte distribution width (RBC) [Entitic vol] 45.6 fL 35.1-43.9 [facility] Erythrocyte distribution width (RBC) [Ratio] 14.6 % 11.6-14.6 [facility] Immature granulocytes/100 WBC (Bld) 0.400 % 0.0-0.9 [facility] Comment on above: IG% - Immature Granu locytes (promyelocytes, myelocytes and metamyelocytes) > 1% indicates that a LEFT SHIFT is Present. MCH (RBC) [Entitic mass] 26.8 pg 27.0-32.0 [facility] Nucleated RBC/100 WBC (Bld) [Ratio] 0 % 0-5 [facility] MCHC Auto (RBC) [Mass/Vol]Or dered By: Placido Pena on 08-11-2023 MCHC (RBC) [Mass/Vol] 31.2 g/dL 32-36 [facility] Mucus LM Ql (Urine sed)Order ed By: Placido Pena on 08-11-2023 Mucus Ql (Urine sed) 0 SEEN /hpf [facility] Nitrite Test strip Ql (U)Ord ered By: Placido Pena on 08-11-2023 Nitrite Ql (U) Negative Negative [facility] No Panel InformationOrdered By: Placido Pena on 08-11-2023 D-Dimer Quantitative (PE/DVT) 0.72 FEU/ug/m 0.27-0.49 [facility] Comment on above: D-Dimer ELEVATED (>0 .49): Additional studies and clinicalassessments are indicated to conclude diagnosis of:Deep Vein Thrombosis (DVT) or Pulmonary Embolism (PE)CRITICAL VALUE VERIFIED. CALLED TO [id number]/13/23 1837 Aline Coombs.RESULTS READ BACK BY SAME . Estimated Creatinine Clearance Calc 53.65 ml/min [facility] Estimated GFR (MDRD) Amer 68 mL/min >60 [facility] Comment on above: GFR Calc Estimated GFR (MDRD) Non-Af Amer 56 mL/min >60 [facility] Comment on above: Non- GFR Calc Troponin I High Sensitivity 1494 pg/mL 3.0-54.0 [facility] Comment on above: TO Critical Result(s ) Called at: 18:38:20 08/11/2023 by: JIL CHRISTIAN TO REINALDO REYES. Results read back by same. Please Note: New Test Units and Gender Specific Reference Ranges. For more information see Policy Stat Procedure Pandora High Sensitivity Troponin (TNIH) and attachments. Platelets bldOrdered By: Adeline Pena on 08-11-2023 Platelets (Bld) [#/Vol] 311 10*3/uL 150-450 [facility] Protein Test strip Ql (U)Ord ered By: Placido Pena on 08-11-2023 Protein Ql (U) 30 mg/dl Negative [facility] Serum or plasma albumin lamar urement (mass/volume)Ordered By: Placido Pena on 08-11-2023 Albumin [Mass/Vol] 3.2 g/dL 3.2-5.0 [facility] Serum or plasma albumin/glob ulin mass ratioOrdered By: Placido Pena on 08-11-2023 Albumin/Globulin [Mass ratio] 0.9 {ratio} 0.9-2.4 [facility] Serum or plasma calcium lamar urement (mass/volume)Ordered By: Placido Pena on 08-11-2023 Calcium [Mass/Vol] 9.0 mg/dL 8.5-10.1 [facility] Serum or plasma creatinine m easurement (mass/volume)Ordered By: Placido Pena on 08-11-2023 Creatinine [Mass/Vol] 1.13 mg/dL 0.55-1.02 [facility] Comment on above: The validity of the calculated GFR & GFRAA in patients over 70 years has not been determined. Clinical correlation is essential. Serum or plasma urea nitroge n measurement (mass/volume)Ordered By: Placido Pena on 08-11-2023 Urea nitrogen [Mass/Vol] 9 mg/dL 7-18 [facility] Squamous epithelial cells de tection in urine sediment by light microscopyOrdered By: Placido Pena on 08-11-2023 Epithelial cells.squamous LM Ql (Urine sed) 0 SEEN /hpf 5-10 [facility] Thin prep Papanicolaou smear with manual screeningOrdered By: Placido Pena on 08-11-2023 Thin prep Papanicolaou smear with manual screening 60 U/L 15-37 [facility] Thin prep Papanicolaou smear with manual screening 4 5-15 [facility] Urine blood detectionOrdered By: Placido Pena on 08-11-2023 RBC Ql (U) Negative Negative [facility] RBC Ql (U) 0 SEEN /hpf 0-5 [facility] Urine clarityOrdered By: Adeline Pena on 08-11-2023 Clarity (U) Clear Clear [facility] Urine color determinationOrd ered By: Placido Pena on 08-11-2023 Color (U) Yellow Yellow [facility] Urine glucose detectionOrder ed By: Placido Pena on 08-11-2023 Glucose Ql (U) 250 mg/dl Normal [facility] Urine leukocyte esterase det ection by dipstickOrdered By: Placido Pena on 08-11-2023 Leukocyte esterase Test strip Ql (U) Negative Negative [facility] Urine pHOrdered By: Placido aguilar on 08-11-2023 pH (U) 6.0 [pH] 5.0 - 8.0 [facility] Urine sediment bacteria coun t by microscopy (number/high power field)Ordered By: Placido Pena on 08-11-2023 Bacteria LM.HPF (Urine sed) [#/Area] 0 /[HPF] None Seen [facility] Urine specific gravity measu rementOrdered By: Placido Pena on 08-11-2023 Specific gravity (U) [Rel density] 1.015 1.002-1.030 [facility] Urobilinogen Auto test strip Ql (U)Ordered By: Placido Pena on 08-11-2023 Urobilinogen Ql (U) Normal mg/dl Normal [facility] XR Shoulder - right 3 Viewso n 02-24-2023 IMPRESSION: No acute osseous abnormality. Interlocker: HODA Transcribe Date/Time: Feb 24 2023 12:12P Dictated by : VIOLETTE JOSEPH DO This examination was interpreted and the report reviewed and electronically signed by: VIOLETTE JOSEPH DO on Feb 24 2023 12:14PM [facility] DIVISION OF RADIOLOGY * * *Final Report* [...] maintained. No fracture. DIVISION OF RADIOLOGY Provider, [facility] - 02/24/2023 * * *Final Report* * [...] fracture. IMPRESSION IMPRESSION: No acute osseous abnormality. Interlocker: PSCB Transcribe Date/Time: Feb 24 2023 12:12P Dictated by : VIOLETTE JOSEPH DO This examination was interpreted and the report reviewed and electronically signed by: VIOLETTE JOSEPH DO on Feb 24 2023 12:14PM EST [facility] XR Shoulder - right 3 ViewsO rdered By: [facility] Provider on 02-24-2023 [facility] EB SCREENINGon 02-23-2023 [facility] XR Shoulder - right 3 Viewso n 02-19-2023 Radiology Study observation (narrative) [facility] HbA1c (Bld)on 01-27-2023 HbA1c (d) [Mass fraction] 10 % Abnormal 4 - 6 % [facility] XR FOOT RIGHT (MIN 3 VIEWS)o [...] Mateus Cartwright MD 07/10/[address] [facility] NO ACUTE FRACTURES [facility] RADIOLOGY XR FOOT RIGHT (MIN 3 VIEWS) CLINICAL HISTORY: pain no history of trauma reported COMPARISON: None FINDINGS: Three views of the right foot are submitted. No acute fractures. No dislocations. No focal bony abnormalities No radiographic foreign body [facility] RADIOLOGY Mateus Cartwright MD - 07/10/2022 XR FOOT RIGHT (MIN 3 VIEWS) CLINICAL HISTORY: pain no history of trauma reported COMPARISON: None FINDINGS: Three views of the right foot are submitted. No acute fractures. No dislocations. No focal bony abnormalities No radiographic foreign body IMPRESSION: NO ACUTE FRACTURES [employer] Work Phone: Radiology Study observation (narrative) NIKOLAS MCFARLANE [facility] [employer] Work Phone: XR FOOT RIGHT (MIN 3 VIEWS)O rdered By: Mateus Cartwright on 07-10-2022 NIKOLAS MALDONADO [facility] [employer] Work Phone: UR Microalbumin/Creatinine R atio Randomon 08-20-2021 Microalbumin/creatinine Ratio 23.9 mg/G Normal 0.0-30.0 [facility] Comment on above: Performed By: #### U MACR #### [facility] [address] [place] [address] UR Creatinine Random 117.2 mg/dL Normal Not Establ [facility] Comment on above: Performed By: #### U MACR #### [facility] [address] [place] [address] UR Microalbumin Random 2.80 mg/dL Critically high Not Esta bl [facility] Comment on above: Performed By: #### U MACR #### [facility] [address] [place] [address] BASIC METABOLIC PANELon 07-30 Anion gap [Moles/Vol] 12 mmol/L Normal 10 - 20 [facility] Comment on above: Performed By: #### B MP #### [address] [id number] Calcium [Mass/Vol] 9.1 mg/dL Normal 8.6 - 10.3 [facility] Comment on above: Performed By: #### B MP #### [address] [id number] Chloride [Moles/Vol] 103 mmol/L Normal 98 - 107 [facility] Comment on above: Performed By: #### B MP #### [address] [id number] Creatinine [Mass/Vol] 1.01 mg/dL Normal 0.50 - 1.05 [facility] Comment on above: Performed By: #### B MP #### [address] [id number] GFR- AM. >60 Normal >60 [facility] Comment on above: Result Comment: CALC ULATIONS OF ESTIMATED GFR ARE PERFORMED USING THE MDRD STUDY EQUATION FOR THE IDMS-TRACEABLE CREATININE METHODS. CLIN CHEM 2007;53:766-72 Performed By: #### B MP #### [address] [id number] GFR-NON AM. >60 Normal >60 [facility] Comment on above: Performed By: #### B MP #### [address] [id number] Glucose [Mass/Vol] 312 mg/dL High 74 - 99 [facility] Comment on above: Performed By: #### B MP #### [address] [id number] HCO3 (Bld) [Moles/Vol] 22 mmol/L Normal 21 - 32 [facility] Comment on above: Performed By: #### B MP #### [address] [id number] Potassium [Moles/Vol] 3.6 mmol/L Normal 3.5 - 5.3 [facility] Comment on above: Performed By: #### B MP #### [address] [id number] Sodium [Moles/Vol] 133 mmol/L Low 136 - 145 [facility] Comment on above: Performed By: #### B MP #### [address] [id number] Urea nitrogen [Mass/Vol] 12 mg/dL Normal 6 - 23 [facility] Comment on above: Performed By: #### B MP #### [address] [id number] BNPon 08-14-2021 Natriuretic peptide B (Bld) [Mass/Vol] 35 pg/mL Normal 0 - 99 [facility] Comment on above: Result Comment: . <1 00 pg/mL - Heart failure unlikely 100-299 pg/mL - Intermediate probability of acute heart . failure exacerbation. Correlate with clinical . context and patient history. >=300 pg/mL - Heart Failure likely. Correlate with clinical . context and patient history. BNP testing is performed using different testing methodology at [facility] than at other [facility]. Direct result comparisons should only be made within the same method. Performed By: #### B NP2 #### [address] [id number] CBC AND DIFFERENTIALon 08-14 % AUTOMATED IMMATURE GRAN 0.2 % Normal 0.0 - 0.9 [facility] Comment on above: Result Comment: Jojo ture Granulocyte Count (IG) includes promyelocytes, myelocytes and metamyelocytes but does not include bands. Percent differential counts (%) should be interpreted in the context of the absolute cell counts (cells/L). Performed By: #### C BCDF #### [address] [phone] Basophils (Bld) [#/Vol] 0.02 10*3/uL Normal 0.00 - 0.[address] [facility] Comment on above: Performed By: #### C BCDF #### [address] [id number] Basophils/100 WBC (Bld) 0.3 % Normal 0.0 - 2.0 [facility] Comment on above: Performed By: #### C BCDF #### [address] [id number] Eosinophils (Bld) [#/Vol] 0.09 10*3/uL Normal 0.00 - 0.70 [facility] [facility] Comment on above: Performed By: #### C BCDF #### [address] [id number] Eosinophils/100 WBC (Bld) 1.4 % Normal 0.0 - 6.0 [facility] Comment on above: Performed By: #### C BCDF #### [address] [id number] Erythrocyte distribution width (RBC) [Ratio] 13.5 % Normal 11.5 - 14.5 [facility] Comment on above: Performed By: #### C BCDF #### [address] [phone] Hematocrit (Bld) [Volume fraction] 41.1 % Normal 36.0 - 46.0 [facility] Comment on above: Performed By: #### C BCDF #### [address] [id number] Hemoglobin (Bld) [Mass/Vol] 13.0 g/dL Normal 12.0 - 16.0 [facility] Comment on above: Performed By: #### C BCDF #### [address] [id number] Lymphocytes (Bld) [#/Vol] 2.23 10*3/uL Normal 1.20 - 4.80 [facility] Comment on above: Performed By: #### C BCDF #### [address] [id number] Lymphocytes/100 WBC (Bld) 34.5 % Normal 13.0 - 44.0 [facility] Comment on above: Performed By: #### C BCDF #### [address] [id number] MCHC (RBC) [Mass/Vol] 31.6 g/dL Low 32.0 - 36.0 [facility] Comment on above: Performed By: #### C BCDF #### [address] [id number] MCV (RBC) [Entitic vol] 85 fL Normal 80 - 100 [facility] Comment on above: Performed By: #### C BCDF #### [address] [id number] Monocytes (Bld) [#/Vol] 0.49 10*3/uL Normal 0.10 - 1.[address] [facility] Comment on above: Performed By: #### C BCDF #### [address] [id number] Monocytes/100 WBC (Bld) 7.6 % Normal 2.0 - 10.0 [facility] Comment on above: Performed By: #### C BCDF #### [address] [phone] Neutrophils (Bld) [#/Vol] 3.63 10*3/uL Normal 1.20 - 7.70 [facility] Comment on above: Performed By: #### C BCDF #### [address] [phone] Neutrophils/100 WBC (Bld) 56.0 % Normal 40.0 - 80.0 [facility] Comment on above: Performed By: #### C BCDF #### [address] [phone] Platelets (Bld) [#/Vol] 374 10*3/uL Normal 150 - 450 [facility] Comment on above: Performed By: #### C BCDF #### [address] [id number] RBC 4.85 x10E12/L Normal 4.00 - 5.20 [facility] Comment on above: Performed By: #### C BCDF #### [address] [id number] WBC (Bld) [#/Vol] 6.5 10*3/uL Normal 4.4 - 11.3 [facility] Comment on above: Performed By: #### C BCDF #### [address] [phone] CHEST 1 VIEWon 08-14-2021 CHEST 1 VIEW Patient Name: PATT CRANE STUDY: CHEST 1 VIEW; 08/14/2021 5:54 pm INDICATION: Chest Pain. COMPARISON: None. ACCESSION NUMBER(S): [id number] ORDERING CLINICIAN: JIL YUN FINDINGS: AP radiograph of the chest was provided. CARDIOMEDIASTINAL SILHOUETTE: Cardiomediastinal silhouette is normal in size and configuration. LUNGS: Lungs are clear. ABDOMEN: No remarkable upper abdominal findings. BONES: No acute osseous changes. IMPRESSION: 1. No evidence of acute cardiopulmonary process. Electronically signed by: VÍCTOR MOORE MD Normal [facility] CT ANGIO CHEST FOR PEon - CT ANGIO CHEST FOR PE Patient Name: PATT CRANE STUDY: CT ANGIO CHEST FOR PE; 08/14/2021 7:44 pm INDICATION: cp, sob. COMPARISON: None. ACCESSION NUMBER(S): [id number] ORDERING CLINICIAN: MARQUISE PENA TECHNIQUE: Helical data [...] Electronically signed by: ROD ZIEGLER MD Normal [facility] Clinical Event Noteon 2020 Clinical Event Note Clinical Event: Clinical Event Note: Details Patient is a 41-year-old -[place]er female presents ED with chest pain. Patient states that the pain is located in the center of her chest and radiates to the right side of her chest. Patient states that she works at [employer] and lifts a lot of heavy objects some as much as 50 pounds in weight and she says that 2 days ago while lifting she developed this pain in her chest. Patient states that the pain is exacerbated with lifting, coughing or taking a deep breath. Patient denies any history of [place] or stroke but did have a TIA in 2010. Patient states she is also diabetic, type II and takes insulin. Patient is allergic to penicillin. Patient states she is currently asymptomatic. Electronic Signatures: Jil Yun (PAC) (Signed 14-Aug-2021 16:11) Authored: Clinical Event Note Last Updated: 14-Aug-2021 16:11 by Jil Yun (PAC) Normal [facility] D-DIMER, VTE EXCLUSIONon D-DIMER, VTE EXCLUSION 391 ng/mL FEU Normal < or = 500 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 The work-up and plan were discussed with [...] Allergy Allerge (more content not included)... Normal [facility] Risk Screen - Adult Emergenc yon 08-14-2021 [...] Communicatenone Learning Preferencesaudio Cultural Considerationsnone Developmental Considerationsnone Bahai Considerationsnone Learning Assessment (Other Learner): Learning Assessment (Other Learner): Other learner availableno Pressure Injury/TB/Substance: Pressure Injury: Do you have a coughno Smoking Statusnever smoker Alcohol Useoccasionally Drug Usedenies Drug 2 Usedenies Admission Risk Screen: Significant IndicatorsComplete CAGE: CAGE: Is this an injured patient at a Trauma Center ([facility]/[place]/[facility]/[place]): no Electronic Signatures: Baldev Corrigan (RN) (Signed 14-Aug-2021 15:57) Authored: Preferred Language, Advanced Directives, Family Violence Adult, Learning Assessment (Patient), Learning Assessment (Other Learner), Pressure Injury/TB/Substance, Pressure Injury, CAGE Last Updated: 14-Aug-2021 15:57 by Baldev Corrigan (RN) Normal [facility] TROPONIN Ion 08-14-2021 Troponin I.cardiac [Mass/Vol] ng/mL Normal 0.00 - 0.03 [facility] Comment on above: Result Comment: LESS THAN [...] is performed using different testing methodology at [facility] than at other [facility]. Direct result comparisons should only be made within the same method. Performed By: #### T ROP2 #### [address] [id number] Triage - EDon 08-14-2021 Triage - ED [...] BMI (kg/m2): 34.712 Calculated BSA (m2) 1.94 [place] Coma Scale: Best Eye Response: (E4) spontaneous Best Motor Response: (M6) obeys commands Best Verbal Response: (V5) oriented [place] Score: 15 Cough lasting greater than 3 [...] 14-Aug-2021 15:56 by Baldev Corrigan (RN) Normal [facility] Surgical Specimenon 01-17-20 Surgical Specimen [facility] [address] [place] [address] FINAL SURGICAL PATHOLOGY REPORT Patient Name: PATT CRANE Accession No: [id number] Age Sex: 1980 Location: [facility] Account No: [id number] Collected: 01/17/2021 Med Rec No: [id number] Received: 01/20/2021 Attend Phys: MIKE MUHAMMAD Completed: [...] in toto in one cassette. RENE/STUART CPT: 26725 X1 Alisia WAGNER M.D. 01/21/2021 Electronically signed out by Page 1 of [address] [facility] Comment on above: Performed By: #### S UR #### [address] [address] Otheron 12-20-2020 ENLARGED UTERUS. 4 C M COMPLEX MASS UTERINE FUNDUS, SUSPECTED UTERINE FIBROID. 2 CM COMPLEX HYPOECHOIC LESION LEFT OVARY, PROBABLE CORPUS LUTEAL CYST. FREE FLUID IN POSTERIOR CUL-DE-SAC. NORMAL SIZE OVARIES. NO ABNORMAL ADNEXAL MASS. [facility], [place] PELVIC TRANSABDOMINA L AND TRANSVAGINAL [...] in both ovaries on color doppler imaging. [facility]- [place], [place] Bry, Chpo Incoming Radiant Results From [employer] - 12/20/2020 2:10 PM EST PELVIC TRANSABDOMINAL [...] NORMAL SIZE OVARIES. NO ABNORMAL ADNEXAL MASS. [facility]- [place], [place] HPV DNA Typingon 12-18-2020 HPV Type 16 Not detected Normal Not Detect [facility] HPV Type 18 Not detected Normal Not Detect [facility] HPVOH (Other types) Not detected Normal Not Detect [facility] Comment on above: Result Comment: *Inc ludes 31,33,35,39,45,51,52,56,58,59,66,68 genotypes Trichmonas Vaginalis Screen (EIA)on 12-14-2020 Trichomonas Vaginalis Screen (EIA) Negative Normal [facility] Comment on above: Performed By: #### E TRIC #### [facility] [address] [facility] [place] [address] Wet Prep-Medical Purposes On cisneros 12-14-2020 Wet Prep Clue Cellls None Seen Normal [facility] Comment on above: Performed By: #### W ETPR #### [facility] [address] [place] [address] Wet Prep Trichomonas See EIA Normal [facility] Comment on above: Performed By: #### W ETPR #### [facility] [address] [place] [address] Wet Prep Yeast None Seen Normal [facility] Comment on above: Performed By: #### W ETPR #### [facility] [address] On license of [facility] [address] Gynecological Specimen (Cyto logy)on 12-13-2020 Gynecological Specimen (Cytology) [facility] [address] [place] [address] FINAL CYTOLOGY PAP REPORT Patient Name: PATT CRANE Accession No: [id number] Age Sex: 1980 40 Y / F Location: [facility] Account No: [id number] Collected: 12/13/2020 Med Rec No: [id number] Received: 12/15/2020 Attend Phys: MIKE MUHAMMAD Completed: 12/19/2020 Perform Phys: MIKE MUHAMMAD SPECIMEN ADEQUACY: Satisfactory for Evaluation. Endocervical cells/transformation zone component present. GENERAL CATEGORIZATION: Negative for Intraepithelial Lesion or Malignancy Specimen: THINPREP LIQUID BASE IMAGED DIAGNOSTIC History: Source: Thin Prep Site: Cervical History: Previous abnormal smear? No History of CA? None given Lab Order#: [id number] Test Name Collected D AND T Result [...] (PCR) and nucleic acid hybridization. CPT: Technical: 07453 X1 Screened by: DULCE RESENDEZ(ASCP) DULCE RESENDEZ(ASCP) [...] processed and screened using a Thin Prep Mechanotherapist at [facility] [address] [place] [address] All abnormal gynecologic interpretation is performed at [facility], unless otherwise noted in the report. Page 1 of [address] [facility] Comment on above: Performed By: #### G YN #### [facility] [address] [place] [id number] HPV DNA Typingon 12-13-2020 HPV Comment See below Normal [facility] Comment on above: Result Comment: Th is [...] C-Peptideon 11-22-2020 C-Peptide 2.5 ng/mL Normal 1.1-4.4 [facility] Comment on above: Result Comment: [facility] [address] [place] [address] ([phone] Comprehensive Metabolic Pane gosia 11-19-2020 Albumin [Mass/Vol] 4.1 g/dL Normal 3.5-4.6 [facility] Comment on above: Performed By: #### C MP #### [facility] [address] [place] [address] ALP [Catalytic activity/Vol] 103 U/L Normal 40-130 [facility] Comment on above: Performed By: #### C MP #### [facility] [address] [place] [address] ALT [Catalytic activity/Vol] 12 U/L Normal 0-33 [facility] Comment on above: Performed By: #### C MP #### [facility] [address] [place] [address] Anion gap [Moles/Vol] 11 mmol/L Normal 9-15 [facility] Comment on above: Performed By: #### C MP #### [facility] [address] [place] [address] AST [Catalytic activity/Vol] 10 U/L Normal 0-35 [facility] Comment on above: Performed By: #### C MP #### [facility] [address] [place] [address] Bilirubin [Mass/Vol] 0.4 mg/dL Normal 0.2-0.7 [facility] Comment on above: Performed By: #### C MP #### [facility] [address] [place] [address] Calcium [Mass/Vol] 8.8 mg/dL Normal 8.5-9.9 [facility] Comment on above: Performed By: #### C MP #### [facility] [address] [place] [address] Chloride [Moles/Vol] 101 mmol/L Normal 95-107 [facility] Comment on above: Performed By: #### C MP #### [facility] [address] [place] [address] CO2 [Moles/Vol] 21 mmol/L Normal 20-31 [facility] Comment on above: Performed By: #### C MP #### [facility] [address] [place] [address] Creatinine [Mass/Vol] 0.69 mg/dL Normal 0.50-0.90 [facility] Comment on above: Performed By: #### C MP #### [facility] [address] [place] [address] GFR >60.0 Normal >60 [facility] Comment on above: Result Comment: >60 mL/min/1.73m2 EGFR, calc. for ages 18 and older using the MDRD formula (not corrected for weight), is valid for stable renal function. Performed By: #### C MP #### [facility] [address] [place] [address] GFR/1.73 sq M.predicted among blacks MDRD (S/P/Bld) [Vol rate/Area] mL/min/{1.73_m2} Normal >60 [facility] Comment on above: Result Comment: >60 mL/min/1.73m2 EGFR, calc. for ages 18 and older using the MDRD formula (not corrected for weight), is valid for stable renal function. Performed By: #### C MP #### [facility] [address] [place] [address] Globulin (S) [Mass/Vol] 3.8 g/dL Critically high 2.3-3.5 [facility] Comment on above: Performed By: #### C MP #### [facility] [address] [place] [address] Glucose [Mass/Vol] 282 mg/dL Critically high 70-99 M [facility] Comment on above: Performed By: #### C MP #### [facility] [address] [place] [address] Potassium [Moles/Vol] 4.0 mmol/L Normal 3.4-4.9 [facility] Comment on above: Performed By: #### C MP #### [facility] [address] [place] [address] Protein [Mass/Vol] 7.9 g/dL Normal 6.3-8.0 [facility] Comment on above: Performed By: #### C MP #### [facility] [address] [place] [address] Sodium [Moles/Vol] 133 mmol/L Low 135-144 [facility] Comment on above: Performed By: #### C MP #### [facility] [address] [place] [address] Urea nitrogen [Mass/Vol] 8 mg/dL Normal 6-20 [facility] Comment on above: Performed By: #### C MP #### [facility] [address] [place] [address] Lipid Panel Fastingon 2019 Cholesterol [Mass/Vol] 136 mg/dL Normal 0-199 [facility] Comment on above: Result Comment: ATP III Cholesterol classification is Desirable. Performed By: #### L IPDF #### [facility] [address] [place] [address] HDL Cholesterol Fasting 45 mg/dL Normal 40-59 M [facility] Comment on above: Result Comment: ATP [...] CHD Performed By: #### L IPDF #### [facility] [address] [place] [address] LDL Cholesterol (Calculated) Fasting 75 mg/dL Normal 0-129 [facility] Comment on above: Result Comment: ATP III LDL Classification is Optimal. Performed By: #### L IPDF #### [facility] [address] [place] [address] Triglycerides Fasting 82 mg/dL Normal 0-150 [facility] Comment on above: Result Comment: ATP III Triglycerides Classification is Normal. Performed By: #### L IPDF #### [facility] [address] [place] [address] FOOT 3 OR MORE VW RTon 08-02 FOOT 3 OR MORE VW RT DATE OF EXAM: Aug 02 2017 7:40PMCLINICAL HISTORY/ Name: TIFFANY CRANEASTUDY:FOOT 3 OR MORE VW RT; HEEL/CALCANEUS RT; 08/02/2017 7:40 pmINDICATION:Trauma.CO MPARISON:None.ACCESSIO N NUMBER(S):[id number]; [id number] CLINICIAN:BAUTISTA BAIRDS:No evidence of fracture, dislocation or destructive lesion. Joint spaces and alignment are maintained. No significant soft tissue abnormalities identified.CONCLUSION: IMPRESSION:No fracture identified. Normal [facility] HEEL/CALCANEUS RTon 08-02-20 17 HEEL/CALCANEUS RT DATE OF EXAM: Aug 02 2017 7:40PMCLINICAL HISTORY/ Name: TIFFANY CRANEASTUDY:FOOT 3 OR MORE VW RT; HEEL/CALCANEUS RT; 08/02/2017 7:40 pmINDICATION:Trauma.CO MPARISON:None.ACCESSIO N NUMBER(S):[id number]; [id number] CLINICIAN:BAUTISTA FUENTES:No evidence of fracture, dislocation or destructive lesion. Joint spaces and alignment are maintained. No significant soft tissue abnormalities identified.CONCLUSION: IMPRESSION:No fracture identified. Normal [facility] ECG B/O W INTERP (MED OFFICE ) [facility] Vital Signs Date Time Vital Sign Value Performing Clinician Facility 06-20-2025 08:09-0400 Body height 160.02 cm Garry Trill OUTSIDE INSTALLER APPRENTICE-C Work Phone: [facility] 06-20-2025 08:09-0400 Body mass index (BMI) [Ratio] 36.3 kg/m2 Garry Trill OUTSIDE INSTALLER APPRENTICE-C Work Phone: [facility] 06-20-2025 08:09-0400 Body weight 92.98 kg Garry Trill OUTSIDE INSTALLER APPRENTICE-C Work Phone: [facility] 06-20-2025 08:09-0400 Diastolic blood pressure 86 mm[Hg] Garry Trill OUTSIDE INSTALLER APPRENTICE-C Work Phone: [facility] 06-20-2025 08:09-0400 Heart rate 81 /min Garry Trill OUTSIDE INSTALLER APPRENTICE-C Work Phone: [facility] 06-20-2025 08:09-0400 Respiratory rate 16 /min Garry Trill OUTSIDE INSTALLER APPRENTICE-C Work Phone: [facility] 06-20-2025 08:09-0400 Systolic blood pressure 135 mm[Hg] Garry Trill OUTSIDE INSTALLER APPRENTICE-C Work Phone: [facility] 04-09-2025 16:15-0400 Diastolic blood pressure 98 mm[Hg] Garry Trill MRI ASSISTANT.GEOPHYSICAL LABORATORY SUPERVISOR Work Phone: [facility] 04-09-2025 16:15-0400 Systolic blood pressure 188 mm[Hg] Garry Trill MRI ASSISTANT.GEOPHYSICAL LABORATORY SUPERVISOR Work Phone: [facility] 04-09-2025 15:43-0400 Body height 160 cm Garry Trill MRI ASSISTANT.GEOPHYSICAL LABORATORY SUPERVISOR Work Phone: [facility] 04-09-2025 15:43-0400 Body mass index (BMI) [Ratio] 35.96 kg/m2 Garry Trill MRI ASSISTANT.GEOPHYSICAL LABORATORY SUPERVISOR Work Phone: [facility] 04-09-2025 15:43-0400 Body temperature 98.01 [degF] Garry Trill MRI ASSISTANT.GEOPHYSICAL LABORATORY SUPERVISOR Work Phone: [facility] 04-09-2025 15:43-0400 Body weight 92.08 kg Garry Trichito MRI ASSISTANT.GEOPHYSICAL LABORATORY SUPERVISOR Work Phone: [facility] 04-09-2025 15:43-0400 Heart rate 103 /min Garry Trill MRI ASSISTANT.GEOPHYSICAL LABORATORY SUPERVISOR Work Phone: [facility] 04-09-2025 15:43-0400 SaO2% (BldA) [Mass fraction] 98 % Garry Trill MRI ASSISTANT.GEOPHYSICAL LABORATORY SUPERVISOR Work Phone: [facility] 12-06-2024 13:13-0500 Body height 160 cm Garry Rodriguez MRI ASSISTANT.GEOPHYSICAL LABORATORY SUPERVISOR Work Phone: [facility] 12-06-2024 13:13-0500 Body mass index (BMI) [Ratio] 35.61 kg/m2 Garry Trichito MRI ASSISTANT.GEOPHYSICAL LABORATORY SUPERVISOR Work Phone: [facility] 12-06-2024 13:13-0500 Body temperature 98.01 [degF] Garry Trill MRI ASSISTANT.GEOPHYSICAL LABORATORY SUPERVISOR Work Phone: [facility] 12-06-2024 13:13-0500 Body weight 91.17 kg Garry Trichito MRI ASSISTANT.GEOPHYSICAL LABORATORY SUPERVISOR Work Phone: [facility] 12-06-2024 13:13-0500 Diastolic blood pressure 62 mm[Hg] Garry Trill MRI ASSISTANT.GEOPHYSICAL LABORATORY SUPERVISOR Work Phone: [facility] 12-06-2024 13:13-0500 Heart rate 56 /min Garry Trill MRI ASSISTANT.GEOPHYSICAL LABORATORY SUPERVISOR Work Phone: [facility] 12-06-2024 13:13-0500 Respiratory rate 16 /min Garry Trill MRI ASSISTANT.GEOPHYSICAL LABORATORY SUPERVISOR Work Phone: [facility] 12-06-2024 13:13-0500 SaO2% (BldA) [Mass fraction] 98 % Garry Rodriguez APRN.GEOPHYSICAL LABORATORY SUPERVISOR Work Phone: [facility] 12-06-2024 13:13-0500 Systolic blood pressure 122 mm[Hg] Garry Rodriguez MRI ASSISTANT.GEOPHYSICAL LABORATORY SUPERVISOR Work Phone: [facility] 01-12-2024 10:18-0500 Diastolic blood pressure 68 mm[Hg] Garry Rodriguez MRI ASSISTANT.GEOPHYSICAL LABORATORY SUPERVISOR Work Phone: [facility] 01-12-2024 10:18-0500 Systolic blood pressure 140 mm[Hg] Garry Rodriguez MRI ASSISTANT.GEOPHYSICAL LABORATORY SUPERVISOR Work Phone: [facility] 01-12-2024 10:08-0500 Body height 160 cm Garry Rodriguez MRI ASSISTANT.GEOPHYSICAL LABORATORY SUPERVISOR Work Phone: [facility] 01-12-2024 10:08-0500 Body temperature 97.59 [degF] Garry Rodriguez MRI ASSISTANT.GEOPHYSICAL LABORATORY SUPERVISOR Work Phone: [facility] 01-12-2024 10:08-0500 Body weight 83.92 kg Garry Rodriguez MRI ASSISTANT.GEOPHYSICAL LABORATORY SUPERVISOR Work Phone: [facility] 01-12-2024 10:08-0500 Heart rate 74 /min Garry Rodriguez APRN.GEOPHYSICAL LABORATORY SUPERVISOR Work Phone: [facility] 01-12-2024 10:08-0500 SaO2% (BldA) [Mass fraction] 99 % Garry Rodriguez MRI ASSISTANT.GEOPHYSICAL LABORATORY SUPERVISOR Work Phone: [facility] 09-09-2023 15:58-0400 Body height 160.02 cm MD Placido Pena Work Phone: [facility] 09-09-2023 15:58-0400 Body mass index (BMI) [Ratio] 36.6 kg/m2 MD Placido Pena Work Phone: [facility] 09-09-2023 15:58-0400 Body weight 93.89 kg MD Placido Pena Work Phone: [facility] 09-09-2023 15:58-0400 Diastolic blood pressure 103 mm[Hg] MD Placido Pena Work Phone: 3(460)959-142210 [place] [address] 09-09-2023 15:58-0400 Heart rate 103 /min MD Placido Pena Work Phone: 6(685)102-606510 [place] [address] 09-09-2023 15:58-0400 Respiratory rate 16 /min MD Placido Pena Work Phone: 2(352)412-605267 [place] [address] 09-09-2023 15:58-0400 Systolic blood pressure 141 mm[Hg] MD Placido Pena Work Phone: 1(510)164-333867 [place] [address] 08-12-2023 16:47-0400 Body temperature 97.4 [degF] MD Placido Pena Work Phone: 7(025)934-652667 [place] [address] 08-12-2023 16:47-0400 Diastolic blood pressure 92 mm[Hg] MD Placido Pena Work Phone: 5(848)110-607367 [place] [address] 08-12-2023 16:47-0400 Heart rate 89 /min MD Placido Pena Work Phone: 9(101)142-873967 [place] [address] 08-12-2023 16:47-0400 Respiratory rate 18 /min MD Placido Pena Work Phone: 7(576)160-874367 [place] [address] 08-12-2023 16:47-0400 SaO2% (BldA) [Mass fraction] 96 % MD Placido Pena Work Phone: 8(149)706-906967 [place] [address] 08-12-2023 16:47-0400 Systolic blood pressure 140 mm[Hg] MD Placido Pena Work Phone: 9(108)758-048267 [place] [address] 08-11-2023 21:27-0400 Body mass index (BMI) [Ratio] 36.3 kg/m2 MD Placido Pena Work Phone: 9(062)700-856267 [place] [address] 08-11-2023 21:27-0400 Body weight 92.98 kg MD Placido Pena Work Phone: 3(407)744-259067 [place] [address] 08-11-2023 20:50-0400 Body temperature 97.7 [degF] [facility] 08-11-2023 20:50-0400 Diastolic blood pressure 99 mm[Hg] [facility] 08-11-2023 20:50-0400 Heart rate 108 /min [facility] 08-11-2023 20:50-0400 Respiratory rate 19 /min [facility] 08-11-2023 20:50-0400 SaO2% (BldA) [Mass fraction] 97 % [facility] 08-11-2023 20:50-0400 Systolic blood pressure 148 mm[Hg] [facility] 08-11-2023 16:41-0400 Body height 160.02 cm [facility] 08-11-2023 16:41-0400 Body mass index (BMI) [Ratio] 36.4 kg/m2 [facility] 08-11-2023 16:41-0400 Body weight 93.3 kg [facility] 05-05-2023 13:09-0400 Body height 160 cm Tone Espino MD Work Phone: [facility] [facility] 05-[facility]2023 13:09-0400 Body weight 90.72 kg Tone Espino MD Work Phone: [facility] 05-05-2023 13:09-0400 Diastolic blood pressure 80 mm[Hg] Tone Espino MD Work Phone: [facility] 05-05-2023 13:09-0400 Heart rate 98 /min Tone Espino MD Work Phone: [facility] 05-05-2023 13:09-0400 SaO2% (BldA) [Mass fraction] 99 % Tone Espino MD Work Phone: [facility] 05-05-2023 13:09-0400 Systolic blood pressure 144 mm[Hg] Tone Espino MD Work Phone: [facility] 03-23-2023 10:34-0400 Body height 160 cm Garry Rodriguez APRN.CNP Work Phone: [facility] 03-23-2023 10:34-0400 Body temperature 98.6 [degF] Garry Trill MRI ASSISTANT.GEOPHYSICAL LABORATORY SUPERVISOR Work Phone: [facility] 03-23-2023 10:34-0400 Body weight 92.99 kg Garry Trill MRI ASSISTANT.GEOPHYSICAL LABORATORY SUPERVISOR Work Phone: [facility] 03-23-2023 10:34-0400 Diastolic blood pressure 74 mm[Hg] Garry Trill MRI ASSISTANT.GEOPHYSICAL LABORATORY SUPERVISOR Work Phone: [facility] 03-23-2023 10:34-0400 Heart rate 89 /min Garry Trill MRI ASSISTANT.GEOPHYSICAL LABORATORY SUPERVISOR Work Phone: [facility] 03-23-2023 10:34-0400 SaO2% (BldA) [Mass fraction] 98 % Garry Trill MRI ASSISTANT.GEOPHYSICAL LABORATORY SUPERVISOR Work Phone: [facility] 03-23-2023 10:34-0400 Systolic blood pressure 126 mm[Hg] Garry Trill MRI ASSISTANT.GEOPHYSICAL LABORATORY SUPERVISOR Work Phone: [facility] 02-18-2023 10:06-0400 Diastolic blood pressure 88 mm[Hg] Garry Trill MRI ASSISTANT.GEOPHYSICAL LABORATORY SUPERVISOR Work Phone: [facility] 02-18-2023 10:06-0400 Systolic blood pressure 158 mm[Hg] Garry Trill MRI ASSISTANT.GEOPHYSICAL LABORATORY SUPERVISOR Work Phone: [facility] 02-17-2023 11:21-0400 Body height 160 cm Garry Trill MRI ASSISTANT.GEOPHYSICAL LABORATORY SUPERVISOR Work Phone: [facility] 02-17-2023 11:21-0400 Body temperature 98.4 [degF] Garry Trill MRI ASSISTANT.GEOPHYSICAL LABORATORY SUPERVISOR Work Phone: [facility] 02-17-2023 11:21-0400 Body weight 92.99 kg Garry Trill MRI ASSISTANT.GEOPHYSICAL LABORATORY SUPERVISOR Work Phone: [facility] 02-17-2023 11:21-0400 Heart rate 95 /min Garry Trill MRI ASSISTANT.GEOPHYSICAL LABORATORY SUPERVISOR Work Phone: [facility] 02-17-2023 11:21-0400 SaO2% (BldA) [Mass fraction] 98 % Garry Rhodeschito DAWSON Work Phone: [facility] 07-10-2022 09:14-0400 Body height 157.5 cm Ama Augusta-Yelitza PA-C Work Phone: [facility] [employer] 07-10-2022 09:14-0400 Body mass index (BMI) [Ratio] 34.75 kg/m2 Ama Augusta-Yelitza PA-C Work Phone: [facility] [employer] 07-10-2022 09:14-0400 Body temperature 98.49 [degF] Ama Augusta-Yelitza PA-C Work Phone: [facility] [employer] 07-10-2022 09:14-0400 Body weight 86.18 kg Ama Augusta-Yelitza PA-C Work Phone: [facility] [employer] 07-10-2022 09:14-0400 Diastolic blood pressure 90 mm[Hg] Ama Augusta-Yelitza PA-C Work Phone: [facility] [employer] 07-10-2022 09:14-0400 Heart rate 92 /min Ama Augusta-Yelitza PA-C Work Phone: [facility] [employer] 07-10-2022 09:14-0400 Respiratory rate 20 /min Ama Augusta-Yelitza PA-C Work Phone: [facility] [employer] 07-10-2022 09:14-0400 SaO2% (BldA) [Mass fraction] 98 % Ama Augusta-Yelitza PA-C Work Phone: [facility] [employer] 07-10-2022 09:14-0400 Systolic blood pressure 148 mm[Hg] Ama Augusta-Yelitza PA-C Work Phone: [facility] [employer] 08-14-2021 22:32-0400 Diastolic blood pressure 91 mm[Hg] No Pcp Required [facility] 08-14-2021 22:32-0400 Heart rate 84 /min No Pcp Required [facility] 08-14-2021 22:32-0400 Respiratory rate 20 /min No Pcp Required [facility] 08-14-2021 22:32-0400 SaO2% (BldA) [Mass fraction] 98 % No Pcp Required [facility] 08-14-2021 22:32-0400 Systolic blood pressure 167 mm[Hg] No Pcp Required [facility] 08-14-2021 17:51-0400 Body height 157.4 cm No Pcp Required [facility] 08-14-2021 17:51-0400 Body temperature 97.34 [degF] No Pcp Required [facility] 08-14-2021 17:51-0400 Body weight 86 kg No Pcp Required [facility] Encounters Encounter Date Encounter Type Care Provider Facility Start: 06-28-2025 End: 06-29-2025 Refill Garry Rodriguez APRN.GEOPHYSICAL LABORATORY SUPERVISOR Work Phone: [facility] Comment on above: Refill Request Start: 06-26-2025 End: 06-26-2025 Refill Garry Rodriguez APRN.GEOPHYSICAL LABORATORY SUPERVISOR Work Phone: [facility] Comment on above: Refill Request Start: 06-20-2025 End: 06-20-2025 Patient encounter procedure Keenan Lynne OUTSIDE INSTALLER APPRENTICE-Lil[facility] Work Phone: Start: 06-20-2025 End: 06-20-2025 ambulatory Garry Trichito OUTSIDE INSTALLER APPRENTICE-C Work Phone: [facility] Start: 06-06-2025 End: 06-08-2025 ambulatory Garry Rodriguez MRI ASSISTANT.GEOPHYSICAL LABORATORY SUPERVISOR Work Phone: [facility] Start: 06-06-2025 End: 06-08-2025 Patient encounter procedure Garry Rodriguez APRN.GEOPHYSICAL LABORATORY SUPERVISOR Work Phone: [facility] Comment on above: Referral Start: 05-30-2025 End: 05-30-2025 ambulatory Federico Ambriz PT [facility] Comment on above: Plantar fasciitis (P rimary Dx); Pain of left heel Start: 05-24-2025 End: 05-24-2025 Patient encounter procedure [facility] Provider [facility] Start: 04-30-2025 End: 04-30-2025 Patient encounter procedure Emilia Griffiths Work Phone: Podiatry Comment on above: Plantar fasciitis (P rimary Dx) Start: 04-30-2025 End: 04-30-2025 ambulatory EMILIA GRIFFITHS Facility:[facility] Start: 04-11-2025 End: 04-11-2025 ambulatory Federico Ambriz PT [facility] Comment on above: Pain of left heel; Plantar fasciitis Start: 04-09-2025 End: 04-09-2025 Patient encounter procedure Garry Rodriguez APRN.CNP Work Phone: [facility] Comment on above: Type 2 diabetes maricruz itus with hyperglycemia, without long-term current use of insulin (HCC) (Primary Dx); Cardiomyopathy, unspecified type (HCC); Essential (primary) hypertension; Dyslipidemia; Plantar fasciitis of left foot; Presence of intrauterine contraceptive device; Encounter for screening mammogram for breast cancer Start: 04-09-2025 End: 04-09-2025 ambulatory GARRY RODRIGUEZ Facility:[facility] Start: 04-05-2025 End: 04-10-2025 ambulatory Garry Rodriguez APRN.CNP Work Phone: [facility] Comment on above: ADA Start: 04-04-2025 End: 04-05-2025 Follow-up encounter Garry Rodriguez APRN.GEOPHYSICAL LABORATORY SUPERVISOR Work Phone: [facility] Comment on above: Results Start: 04-02-2025 End: 04-27-2025 ambulatory Emilia Griffiths Work Phone: Podiatry Comment on above: A.D.A Start: 03-26-2025 End: 03-26-2025 Patient encounter procedure Emilia Griffiths Work Phone: Podiatry Comment on above: Pain of left heel (P rimary Dx); Plantar fasciitis Start: 03-26-2025 End: 03-26-2025 ambulatory EMILIA TESTSAEED Facility:[facility] Start: 03-22-2025 End: 03-22-2025 ambulatory GARRY RODRIGUEZ Facility:[facility] Start: 01-09-2025 End: 01-09-2025 ambulatory EMILIA GRIFFITHS Facility:[facility] Start: 01-09-2025 End: 01-09-2025 Patient encounter procedure Emilia Griffiths Work Phone: Podiatry Comment on above: Plantar fasciitis (P rimary Dx); Pain of left heel Start: 12-13-2024 End: 12-13-2024 ambulatory PIERO RODRIGUEZ APRN-[place] Facility:[facility] Start: 12-13-2024 End: 12-13-2024 Patient encounter procedure KRISTYN BRIONES MD [facility] Start: 12-12-2024 End: 12-12-2024 Telephone encounter Garry Rodriguez APRN.CNP Work Phone: [facility] Comment on above: Electronic Communica tion (Ozempic denied ) Start: 12-11-2024 End: 12-11-2024 ambulatory Garry Rodriguez APRN.CNP Work Phone: [facility] Comment on above: New prescription Start: 12-11-2024 End: 12-11-2024 E-mail encounter from caregiver Garry Rodriguez APRN.CNP Work Phone: [facility] Start: 12-11-2024 End: 12-11-2024 Telephone encounter Garry Rodriguez APRN.CNP Work Phone: [facility] Comment on above: Results Start: 12-07-2024 End: 12-07-2024 Telephone encounter Garry Rodriguez APRN.CNP Work Phone: [facility] Comment on above: Electronic Communica tion (Ozempic denied ) Start: 12-06-2024 End: 12-06-2024 Subsequent hospital visit by physician Xr [facility] Comment on above: Pain of left heel [M 79.672] Start: 12-06-2024 End: 12-06-2024 Patient encounter procedure Garry Rodriguez APRN.GEOPHYSICAL LABORATORY SUPERVISOR Work Phone: [facility] Comment on above: Well adult exam (Karen [...] End: 12-06-2024 Patient encounter status Garry Rodriguez APRN.GEOPHYSICAL LABORATORY SUPERVISOR Work Phone: [facility] Work Phone: Start: 12-06-2024 End: 12-06-2024 ambulatory GARRY RODRIGUEZ Facility:[facility] Start: 12-06-2024 Encounter for genera l adult medical examination without abnormal findings GARRY RODRIGUEZ [facility] Start: 12-04-2024 End: 12-05-2024 Refill Garry Rodriguez APRN.GEOPHYSICAL LABORATORY SUPERVISOR Work Phone: [facility] Comment on above: Refill Request Start: 11-24-2024 End: 11-24-2024 ambulatory KRISTYN BRIONES MD [facility] Start: 11-24-2024 End: 11-24-2024 Patient encounter procedure KRISTYN BRIOENS MD [facility] Start: 11-23-2024 End: 11-23-2024 ambulatory Garry Rodriguez APRN.GEOPHYSICAL LABORATORY SUPERVISOR Work Phone: [facility] Comment on above: Positive t est Start: 11-16-2024 End: 11-16-2024 ambulatory GARRY RODRIGUEZ Facility:[facility] Start: 11-16-2024 End: 11-16-2024 Subsequent hospital visit by physician [facility] (I-Stat) Work Phone: Cat Scan Comment on above: Lung nodule [R91.1] Start: 10-09-2024 End: 10-09-2024 Telephone encounter Garry Rodriguez MRI ASSISTANT.GEOPHYSICAL LABORATORY SUPERVISOR Work Phone: [facility] Comment on above: Orders Start: 08-16-2024 ambulatory Alexia Stacy OUTSIDE INSTALLER APPRENTICE Facili ty:[facility] Start: 05-23-2024 ambulatory PIERO Sultana MRI ASSISTANT-GEOPHYSICAL LABORATORY SUPERVISOR Facility:[facility] Start: 05-10-2024 End: 05-10-2024 ambulatory KRISTYN BRIONES MD Facility:[facility] Start: 05-10-2024 End: 05-10-2024 Patient encounter procedure KRISTYN BRIONES MD [facility] Start: 03-20-2024 Telephone encounter Garry Rodriguez MRI ASSISTANT.GEOPHYSICAL LABORATORY SUPERVISOR Work Phone: [facility] Comment on above: Medication Dosage Ad justment (Trulicity) Start: 02-16-2024 End: 02-16-2024 ambulatory KRISTYN BRIONES MD Facility:[facility] Start: 02-16-2024 End: 02-16-2024 Patient encounter procedure KRISTYN BRIONES MD [facility] Start: 01-13-2024 ambulatory Garry sultana MRI ASSISTANT.GEOPHYSICAL LABORATORY SUPERVISOR Work Phone: [facility] Start: 01-13-2024 Letter encounter Garry dale MRI ASSISTANT.GEOPHYSICAL LABORATORY SUPERVISOR Work Phone: [facility] Comment on above: Letter for airport Start: 01-12-2024 Telephone encounter Garry Rodriguez MRI ASSISTANT.GEOPHYSICAL LABORATORY SUPERVISOR Work Phone: [facility] Comment on above: Results (CT abd/pel results) Start: 01-12-2024 End: 01-12-2024 Patient encounter procedure Garry Rodriguez APRN.CNP Work Phone: [facility] Comment on above: Type 2 diabetes maricruz itus without complication, without long- term current use of insulin (HCC) (Primary Dx); Encounter for screening mammogram for breast cancer; Chronic right shoulder pain; Fatty liver Start: 01-08-2024 E-mail encounter fro m caregiver Garry Rodriguez APRN.CNP Work Phone: [facility] Start: 01-08-2024 Patient encounter procedure Garry Rodriguez APRN.CNP Work Phone: [facility] Comment on above: Appointment Request (HM) Start: 10-27-2023 End: 10-31-2023 ambulatory PIERO RODRIGUEZ APRN-[place] Facility:[facility] Start: 10-27-2023 End: 10-31-2023 Encounter for gynecological examination (general) (routine) without abnormal findings JESSICA NICKERSON APRN-HARPER Facility:[facility] Start: 10-12-2023 End: 10-12-2023 ambulatory MD Placido Pena Work Phone: [facility] Work Phone: Start: 10-12-2023 End: 10-12-2023 Patient encounter procedure MD Placido Pena Work Phone: [facility] Work Phone: Start: 10-06-2023 Telephone encounter Garry Rodriguez APRN.CNP Work Phone: [facility] Comment on above: Results (CT A/P) Start: 10-06-2023 End: 10-06-2023 Subsequent hospital visit by physician Ct Prep [facility] Cat Scan Comment on above: Intra-abdominal and pelvic swelling, mass and lump, unspecified site [R19.00] Start: 09-21-2023 End: 09-21-2023 ambulatory MD Placido Pena Work Phone: [facility] Work Phone: Start: 09-21-2023 End: 09-21-2023 Patient encounter procedure MD Placido Pena Work Phone: [facility] Work Phone: Start: 09-16-2023 Telephone encounter Garry Rodriguez APRN.GEOPHYSICAL LABORATORY SUPERVISOR Work Phone: [facility] Comment on above: Patient Question; Re sults Start: 09-15-2023 End: 09-15-2023 Subsequent hospital visit by physician [facility] Work Phone: Radiology Comment on above: Epigastric pain [R10 .13] Start: 09-13-2023 ambulatory Garry sultana MRI ASSISTANT.GEOPHYSICAL LABORATORY SUPERVISOR Work Phone: [facility] Comment on above: Abdomen Start: 09-10-2023 Telephone encounter Akshat Quesada JOHN [facility] Comment on above: Results Start: 09-09-2023 End: 09-09-2023 Patient encounter procedure MD Placido Pena Work Phone: [facility] Work Phone: Start: 09-08-2023 Telephone encounter Tone goss MD Work Phone: [facility] Comment on above: Results Start: 08-12-2023 Non-patient / Non-visit MD Adeline Pena Work Phone: [facility] Work Phone: Start: 08-12-2023 Non-patient / Non-visit MD Adeline Pena Work Phone: [facility] Start: 08-11-2023 Non-patient / Non-visit MD Adeline Pena Work Phone: [facility] Work Phone: Start: 08-11-2023 End: 08-12-2023 Evaluation and management of inpatient [facility] Work Phone: Start: 08-11-2023 End: 08-11-2023 Patient encounter procedure Lauren Jil MRI ASSISTANT.GEOPHYSICAL LABORATORY SUPERVISOR Work Phone: [facility] Comment on above: Dizziness (Primary D x) Start: 07-01-2023 Telephone encounter Tone goss MD Work Phone: [facility] [place] Comment on above: Results Start: 05-05-2023 End: 05-05-2023 Patient encounter procedure Tone Espino MD Work Phone: [facility] Comment on above: cardiomyopathy, post (Primary Dx); Hyperlipidemia, unspecified hyperlipidemia type Start: 03-23-2023 Telephone encounter [facility] Comment on above: Medication Problem ( PRIOR AUTH DONE ON OZEMPIC ) Start: 03-23-2023 End: 03-23-2023 Patient encounter procedure Garry Rodriguez MRI ASSISTANT.GEOPHYSICAL LABORATORY SUPERVISOR Work Phone: [facility] Comment on above: Type 2 diabetes maricruz itus with hyperglycemia, with long-term current use of insulin (HCC) (Primary Dx); Obesity, Class II, BMI 35-39.9; Depression screening Start: 02-25-2023 Refill Garry sultana MRI ASSISTANT.GEOPHYSICAL LABORATORY SUPERVISOR Work Phone: [facility] Comment on above: Refill Request Results (X-Ray) Results (Mammogram) Start: 02-24-2023 Telephone encounter [facility] Comment on above: Patient Update (Prio r auth on ozempic ) Start: 02-23-2023 Documentation procedure Mammog edwar Coordinator [facility] Start: 02-23-2023 Letter encounter Mammography Coordinator [facility] Department Start: 02-23-2023 End: 02-23-2023 Refill [facility] Comment on above: Encounter for screen ing mammogram for malignant neoplasm of breast [Z12.31] Start: 02-22-2023 Telephone encounter [facility] Comment on above: Medication Problem Start: 02-19-2023 End: 02-19-2023 Subsequent hospital visit by physician Ac [facility] Work Phone: Radiology Comment on above: Chronic right should er pain [M25.511, G89.29] Start: 02-17-2023 End: 02-17-2023 Patient encounter procedure Garry Rodriguez APRN.CNP Work Phone: [facility] Comment on above: Type 2 diabetes maricruz [...] 07-10-2022 End: 07-10-2022 Emergency department patient [facility] Start: 07-10-2022 End: 07-10-2022 Emergency department patient visit [facility] GRIS Work Phone: [facility] ED Comment on above: Metatarsalgia of lef t foot (Primary Dx) Start: 01-29-2022 End: 01-30-2022 ambulatory [facility] Start: 01-29-2022 End: 01-29-2022 Subsequent hospital visit by physician [employer] 1 Schedule [facility] Comment on above: Arrived Start: 08-14-2021 End: 08-14-2021 Emergency department patient visit Marquise Penamadd[facility] 21 Start: 12-19-2020 End: 12-21-2020 Subsequent hospital visit by physician Gonzalez Ultrasound 2 [facility] Ultrasound Comment on above: Menorrhagia with reg ular cycle Start: 01-16-2020 End: 01-16-2020 Subsequent hospital visit by physician Peter [facility] Comment on above: Canceled (Patient) Start: 01-09-2020 End: 01-09-2020 Subsequent hospital visit by physician Peter Rea [facility] Start: 01-02-2020 End: 01-02-2020 Subsequent hospital visit by physician Moe Wong [facility] Comment on above: Arrived Start: 12-26-2019 End: 12-26-2019 Subsequent hospital visit by physician Татьяна Dinh OIL WELL FISHING TOOL OPERATOR [facility] Comment on above: Canceled (Other) Start: 12-19-2019 End: 12-19-2019 Subsequent hospital visit by physician Moe Wong OIL WELL FISHING TOOL OPERATOR [facility] Start: 12-12-2019 End: 12-12-2019 Subsequent hospital visit by physician Shasta Coe PT [facility] Comment on above: Canceled (Other) Start: 12-05-2019 End: 12-05-2019 Subsequent hospital visit by physician Peter Rea [facility] Comment on above: Arrived Start: 11-28-2019 End: 11-28-2019 Subsequent hospital visit by physician Sonia Castellano PT [facility] Comment on above: Arrived Start: 08-02-2017 End: 08-02-2017 Emergency department patient visit LISSA ELLIOTT Facility:[id number] Start: 08-02-2017 Ambulatory Facility:[id number] Procedures Date Procedure Procedure Detail Performing Clinician Start: 04-09-2025 Hemoglobin A1c/Hemoglobin.total in Blood Garry Rodriguez MRI ASSISTANT.GEOPHYSICAL LABORATORY SUPERVISOR Work Phone: Start: 12-06-2024 Urine albumin quantitative Garry Rodriguez APRN.GEOPHYSICAL LABORATORY SUPERVISOR Work Phone: Start: 12-06-2024 Hemoglobin A1c/Hemoglobin.total in Blood Garry Rodriguez MRI ASSISTANT.GEOPHYSICAL LABORATORY SUPERVISOR Work Phone: Start: 12-06-2024 Adult depression screening assessment [facility] Start: 01-12-2024 Hemoglobin A1c/Hemoglobin.total in Blood Garry Rodriguez MRI ASSISTANT.GEOPHYSICAL LABORATORY SUPERVISOR Work Phone: Start: 11-29-2023 Induced dil ation & evacuation KRISTYN BRIONES MD Start: 10-06-2023 Ct abdomen & pelvis w/contrast material Garry Rodriguez APRN.GEOPHYSICAL LABORATORY SUPERVISOR Work Phone: Start: 09-15-2023 Us abdominal real ti me w/image limited Garry Rodriguez APRN.GEOPHYSICAL LABORATORY SUPERVISOR Work Phone: Start: 08-11-2023 CT angiography of ch est with contrast Start: 08-11-2023 Plain chest X-ray Start: 05-05-2023 Ecg routine ecg w/le ast 12 lds w/i&r Tone Espino MD Work Phone: Start: 02-23-2023 End: 02-23-2023 Mammography Garry Rodriguez APRN .GEOPHYSICAL LABORATORY SUPERVISOR Work Phone: Start: 02-19-2023 Radex shoulder compl ete minimum 2 views Garry Rodriguez APRN.GEOPHYSICAL LABORATORY SUPERVISOR Work Phone: Start: 01-27-2023 Hemoglobin A1c/Hemoglobin.total in [...] ion [Identifier] in Cervix by Cyto stain [employer] Schedule Start: 08-26-2011 section KRISTYN BRIONES MD Plan of Treatment Date Care Activity Detail Author Start: 2031 Shingles Vaccine (1 of 2) Shingles Vaccine (1 of 2) [facility] Work Phone: Start: 04-09-2026 Annual PCP Team Chronic Disease Visit Annual PCP Team Chronic Disease Visit [facility] Start: 04-09-2026 Urine microalbumin profile DTaP,Tdap,Td Vaccine (3 - Td or Tdap) [facility] Comment on above: Postponed from 04/01/2025 (Declined at t his time) Start: 03-22-2026 Hepatitis B surface antibody level LDL Cholesterol [facility] Start: 12-13-2025 PAP TESTING PAP TESTING [facility] Start: 12-13-2025 Screening for malignant neoplasm of cervix [facility] Start: 12-06-2025 Annual PCP Team Chronic Disease Visit Annual PCP Team Chronic Disease Visit [facility] Start: 12-06-2025 Anxiety Screening Anxiety Screening [facility] Start: 12-06-2025 BP Controlled (<130/80) BP Controlled (<130/80) [facility] Start: 12-06-2025 Depression Screening Depression Screening [facility] Start: 12-06-2025 Hepatitis B screening Urine Albumin:Creatinine Ratio [facility] Start: 12-06-2025 Hepatitis B Vaccine (1 of 3 - 19+ 3-dose series) Hepatitis B Vaccine (1 of 3 - 19+ 3-dose series) [facility] Comment on above: Postponed from 2000 (Declined at t his time) Start: 12-06-2025 Pneumococcal vaccination Pneumococcal Vaccine (1 of 2 - PCV) [facility] Comment on above: Postponed from 2000 (Declined at t his time) Start: 08-15-2025 End: 08-15-2025 Patient encounter procedure 08/15/2025 10:20 AM EDT Office Visit [facility] [address] [place] [address] Garry Rodriguez APRN.GEOPHYSICAL LABORATORY SUPERVISOR [address] [place] [address] for Diabetes. [facility] Comment on above: for Diabetes. Start: 07-30-2025 Influenza vaccination [facility] Start: 07-16-2025 End: 07-16-2025 ambulatory 07/16/2025 10:45 AM EDT OT/PT/Speech Visit [facility] [address] [place] [address] Federico Ambriz, PT left heel [facility] Comment on above: left heel Start: 07-10-2025 Hemoglobin A[facility]c [facility] Start: 06-27-2025 End: 06-27-2025 ambulatory 06/27/2025 8:15 AM EDT OT/PT/Speech Visit [facility] [address] [place] [address] Federico Ambriz, PT M79.672 (ICD-10-CM) - Pain of left heel [facility] Comment on above: M79.672 (ICD-10-CM) - Pain of left heel Start: 06-20-2025 End: 06-20-2025 ambulatory 06/20/2025 8:15 AM EDT OT/PT/Speech Visit [facility] [address] [place] [address] Federico Ambriz, PT M79.672 (ICD-10-CM) - Pain of left heel [facility] Comment on above: M79.672 (ICD-10-CM) - Pain of left heel Start: 06-13-2025 End: 06-13-2025 ambulatory 06/13/2025 8:15 AM EDT OT/PT/Speech Visit [facility] [address] [place] [address] Federico Amrbiz, PT M79.672 (ICD-10-CM) - Pain of left heel [facility] Comment on above: M79.672 (ICD-10-CM) - Pain of left heel Start: 06-06-2025 End: 06-06-2025 ambulatory 06/06/2025 8:15 AM EDT OT/PT/Speech [facility] Therapy [address] [place] [address] Federico Ambriz, PT M79.672 (ICD-10-CM) - Pain of left heel [facility] Comment on above: M79.672 (ICD-10-CM) - Pain of left heel Start: 05-30-2025 End: 05-30-2025 Patient encounter procedure 05/30/2025 11:00 AM EDT Office Visit [facility] [address] [place] [address] Garry Rodriguez APRN.[facility] [address] [place] [address] Follow up glucose [facility] Comment on above: Follow up glucose Start: 05-30-2025 End: 05-30-2025 ambulatory 05/30/2025 8:15 AM EDT OT/PT/Speech Visit [facility] [address] [place] [address] Federico Ambriz, PT M79.672 (ICD-10-CM) - Pain of left heel [facility] Comment on above: M79.672 (ICD-10-CM) - Pain of left heel Start: 05-28-2025 Influenza vaccination Influenza Vaccine (#1) [facility] momin Comment on above: Postponed from 07/30/2024 (Declined at t his time) Start: 05-07-2025 End: 05-07-2025 Patient encounter procedure 05/07/2025 3:45 PM EDT Office Visit Podiatry [address] [place] [address] Emilia Griffiths [address] [place] [address] 6 week follow up heel pain Podiatry Comment on above: 6 week follow up heel pain Start: 05-02-2025 End: 05-02-2025 ambulatory 05/02/2025 10:30 AM EDT OT/PT/Speech Visit [facility] [address] [place] [address] Srini Glover, PT, DPT M79.672 (ICD-10-CM) - Pain of left heel [facility] Comment on above: M79.672 (ICD-10-CM) - Pain of left heel Start: 04-30-2025 End: 04-30-2025 Patient encounter procedure 04/30/2025 3:30 PM EDT Office Visit Podiatry [address] [place] [address] Emilia Griffiths [address] [place] [address] 6 week follow up heel pain Podiatry Comment on above: 6 week follow up heel pain Start: 04-25-2025 End: 04-25-2025 ambulatory 04/25/2025 8:00 AM EDT OT/PT/Speech Visit [facility] [address] [place] [address] Vidya Smith, OIL WELL FISHING TOOL OPERATOR [address] [place] [address] M79.672 (ICD-10-CM) - Pain of left heel [facility] Comment on above: M79.672 (ICD-10-CM) - Pain of left heel Start: 04-11-2025 End: 04-11-2025 ambulatory 04/11/2025 11:15 AM EDT OT/PT/Speech Visit [facility] [address] [place] [address] Federico Ambriz PT Dx: Pain of left heel [M79.672]; Plantar fasciitis [M72.2] [facility] Comment on above: Dx: Pain of left heel [M79.672]; Plantar fasciitis [M72.2] Start: 04-01-2025 DTaP/Tdap/Td vaccine (3 - Td or Tdap) DTaP/Tdap/Td vaccine (3 - Td or Tdap) [facility] Start: 04-01-2025 DTaP/Tdap/Td vaccine (3 - Td) DTaP/Tdap/Td vaccine (3 - Td) [facility] Work Phone: Start: 04-01-2025 Urine microalbumin profile [facility] Start: 03-14-2025 End: 03-14-2025 Patient encounter procedure 03/14/2025 10:40 AM EDT Office Visit [facility] [address] [place], [place] [id number] Garry Rodriguez APRN.[facility] [address] [place] [address] follow up for Diabetes. [facility] Comment on above: follow up for Diabetes. Start: 03-06-2025 Hemoglobin A1c measurement HbA1C [facility] Start: 01-12-2025 Annual PCP Team Chronic Disease Visit Annual PCP Team Chronic Disease Visit [facility] Start: 01-09-2025 End: 01-09-2025 Patient encounter procedure 01/09/2025 3:45 PM EST Office Visit Podiatry [address] [place] [address] Emilia Griffiths [address] [facility] [address] [address] heel pain Podiatry Comment on above: heel pain Start: 12-25-2024 Glaucoma screening Dilated Retinal Exam [facility] Comment on above: Postponed from 12/22/2024 (Currently Josse eduled) Start: 12-22-2024 Glaucoma screening Dilated Retinal Exam [facility] Start: 12-12-2024 End: 12-12-2024 ambulatory 12/12/2024 3:45 PM EST OT/PT/Speech Visit [facility] [address] [place] [address] Jessica Erickson, PT Pain in shoulder [facility] Comment on above: Pain in shoulder Start: 12-06-2024 End: 07-04-2025 CBC panel - Blood by Automated count COMPLETE BLOOD COUNT Lab Routine Type 2 diabetes mellitus with hyperglycemia, without long-term current use of insulin ([facility]) Expected: 12/06/2024, Expires: 07/04/2025 [facility] Comment on above: Expected: 12/06/2024, Expires: Start: 12-06-2024 End: 07-04-2025 Comprehensive metabolic 2000 panel - Serum or Plasma COMPREHENSIVE METABOLIC PANEL Lab Routine Type 2 diabetes mellitus with hyperglycemia, without long-term current use of insulin ([facility]) Expected: 12/06/2024, Expires: 07/04/2025 [facility] Comment on above: Expected: 12/06/2024, Expires: Start: 12-06-2024 End: 07-04-2025 Lipid 1996 panel - Serum or Plasma LIPID PANEL BASIC Lab Routine Type 2 diabetes mellitus with hyperglycemia, without long-term current use of insulin ([facility]) Expected: 12/06/2024, Expires: 07/04/2025 [facility] [place] [facility] Work Phone: Comment on above: Expected: 12/06/2024, Expires: Start: 12-06-2024 End: 07-04-2025 Magnesium [Mass/volume] in Serum or Plasma MAGNESIUM Lab Routine Type 2 diabetes mellitus with hyperglycemia, without long-term current use of insulin (HCC) Expected: 12/06/2024, Expires: 07/04/2025 [facility] Comment on above: Expected: 12/06/2024, Expires: Start: 12-06-2024 End: 07-04-2025 Phosphate [Mass/volume] in Serum or Plasma PHOSPHORUS INORGANIC Lab Routine Type 2 diabetes mellitus with hyperglycemia, without long-term current use of insulin (HCC) Expected: 12/06/2024, Expires: 07/04/2025 [facility] Comment on above: Expected: 12/06/2024, Expires: Start: 12-06-2024 End: 12-06-2024 Patient encounter procedure 12/06/2024 1:20 PM EST Office Visit [facility] [address] [place] [address] Garry Rodriguez, SHIRLENE.[facility] [address] [place] [address] [facility] Comment on above: JAX Start: 11-28-2024 Behavioral Health Screening Behavioral Health Screening [facility] Comment on above: Postponed from 11/29/2023 (Declined at t his time) Start: 11-28-2024 Depression Assessment Depression Assessment [facility] Comment on above: Postponed from 11/29/2023 (Declined at t his time) Start: 11-07-2024 Cervical cancer screen Cervical cancer screen [facility] Work Phone: Start: 08-20-2024 Annual PCP Team Chronic Disease Visit Annual PCP Team Chronic Disease Visit [facility] Start: 07-30-2024 Covid-19 Vaccine ( season) Covid-19 Vaccine ( season) [facility] Start: 07-30-2024 Influenza vaccination [facility] Start: 04-11-2024 Hemoglobin A1c measurement HbA1C [facility] Start: 03-23-2024 3 comp foot exam completed DIABETIC FOOT EXAM [facility] Start: 03-23-2024 ANNUAL PCP TEAM CHRONIC DISEASE VISIT ANNUAL PCP TEAM CHRONIC DISEASE VISIT [facility] Start: 03-23-2024 COVID-19 VACCINE (#1) COVID-19 VACCINE (#1) [facility] Comment on above: Postponed from 1981 (Declined at t his time) Start: 03-23-2024 Diabetic foot examination Diabetic Foot Exam [facility] Start: 02-24-2024 Mammography [facility] Start: 02-24-2024 Screening for malignant neoplasm of breast Mammogram Screening [facility] Start: 02-20-2024 Hepatitis B surface antibody level LDL CHOLESTEROL [facility] Start: 02-18-2024 ANNUAL PCP TEAM CHRONIC DISEASE VISIT ANNUAL PCP TEAM CHRONIC DISEASE VISIT [facility] Start: 12-13-2023 Screening for malignant neoplasm of cervix [facility] Start: 11-29-2023 Depression Assessment Depression Assessment [facility] Start: 11-19-2023 Hemoglobin A1c measurement HbA1C [facility] Start: 11-19-2023 Hemoglobin A1c/Hemoglobin.total in Blood HbA1C [facility] Start: 10-09-2023 End: 12-09-2023 Hepatic function 2000 panel - Serum or Plasma HEPATIC FUNCTION PNL Lab Routine Hyperlipidemia, unspecified hyperlipidemia type Expected: 10/09/2023, Expires: 12/09/2023 [facility] Work Phone: Comment on above: Expected: 10/09/2023, Expires: Start: 08-12-2023 Patient referral [facility] Work Phone: Start: 08-12-2023 Notification of physician [facility] Start: 08-12-2023 Patient discharge [facility] Start: 08-12-2023 Provision of activity privileges [facility] Start: 08-12-2023 Pulse taking [facility] Start: 08-12-2023 Scheduling [facility] Start: 08-12-2023 Taking patient vital signs [facility] Start: 08-12-2023 [facility] Start: 08-12-2023 Catheterization of vein [facility] Start: 08-12-2023 Medication not administered [facility] Start: 08-12-2023 Notification of physician [facility] Start: 08-12-2023 [facility] Start: 08-11-2023 End: 08-12-2023 [facility] Start: 08-11-2023 Following clinical pathway protocol [facility] Start: 08-11-2023 Ambulation without limitation [facility] Start: 08-11-2023 Assessment of risk of venous thromboembolism [facility] Start: 08-11-2023 Care regimes management [facility] Start: 08-11-2023 Insertion of catheter into peripheral vein [facility] Start: 08-11-2023 Measuring intake and output [facility] Start: 08-11-2023 Notification of physician [facility] Start: 08-11-2023 Oxygen therapy [facility] Start: 08-11-2023 Providing care according to standard [facility] Start: 08-11-2023 Referral to all terrain vehicle technician [facility] Start: 08-11-2023 Tobacco use cessation education [facility] Start: 08-11-2023 Electrocardiographic procedure [facility] Start: 08-11-2023 Verification routine [facility] Start: 08-11-2023 Admission procedure [facility] Start: 07-30-2023 Covid-19 Vaccine ( season) Covid-19 Vaccine () [facility] Start: 07-30-2023 Influenza vaccination [facility] Start: 07-15-2023 End: 09-14-2023 Basic metabolic 2000 panel - Serum or Plasma BASIC METABOLIC PNL Lab Routine Dilated cardiomyopathy (HCC) Expected: 07/15/2023, Expires: 09/14/2023 [facility] Work Phone: Comment on above: Expected: 07/15/2023, Expires: Start: 04-29-2023 Hemoglobin A1c/Hemoglobin.total in Blood HBA1C [facility] Start: 02-17-2023 End: 09-15-2023 CBC panel - Blood by Automated count CBC Lab Routine Type 2 diabetes mellitus with hyperglycemia, with long-term current use of insulin (HCC) Primary hypertension Expected: 02/17/2023, Expires: 09/15/2023 [facility] Work Phone: Comment on above: Expected: 02/17/2023, Expires: 3 Start: 02-17-2023 End: 09-15-2023 Comprehensive metabolic 2000 panel - Serum or Plasma COMP METABOLIC PANEL Lab Routine Type 2 diabetes mellitus with hyperglycemia, with long-term current use of insulin (HCC) Primary hypertension Expected: 02/17/2023, Expires: 09/15/2023 [facility] Work Phone: Comment on above: Expected: 02/17/2023, Expires: 3 Start: 02-17-2023 End: 09-15-2023 Lipid 1996 panel - Serum or Plasma LIPID PANEL BASIC Lab Routine Type 2 diabetes mellitus with hyperglycemia, with long-term current use of insulin (HCC) Primary hypertension Expected: 02/17/2023, Expires: 09/15/2023 [facility] Work Phone: Comment on above: Expected: 02/17/2023, Expires: 3 Start: 02-17-2023 End: 09-15-2023 Thyrotropin [Units/volume] in Serum or Plasma TSH BLD Lab Routine Type 2 diabetes mellitus with hyperglycemia, with long-term current use of insulin (HCC) Primary hypertension Expected: 02/17/2023, Expires: 09/15/2023 [facility] Work Phone: Comment on above: Expected: 02/17/2023, Expires: 3 Start: 11-29-2022 DEPRESSION ASSESSMENT DEPRESSION ASSESSMENT [facility] Start: 08-19-2022 Hepatitis B screening URINE ALBUMIN:CREATININE RATIO [facility] Start: 08-19-2022 Urine screening for protein Diabetic microalbuminuria test [facility] Start: 07-30-2022 Influenza vaccination [facility] Start: 07-15-2022 Diabetic retinal exam Diabetic retinal exam [facility] Start: 12-13-2021 Depression Screen Depression Screen [facility] [employer] Start: 11-19-2021 Creatinine measurement Creatinine monitoring [facility] Start: 11-19-2021 Diabetic foot examination Diabetic foot exam [facility] Start: 11-19-2021 Lipid panel [facility] Start: 11-19-2021 Potassium monitoring Potassium monitoring [facility] Start: 11-18-2021 Hemoglobin A1c measurement A1C test (Diabetic or Prediabetic) [facility] Start: 07-30-2021 Influenza vaccination Flu vaccine (#1) [facility] Start: 05-09-2021 End: 05-09-2021 Office Visit 05/09/2021 Office Visit Cardiology Sadiq Charles DO [address] [place] [address] [phone] [facility] Start: 2021 Mammography MAMMOGRAM [facility] Start: 02-17-2021 HbA1c (Bld) [Mass fraction] A1C test (Diabetic or Prediabetic) [facility] [place] Start: 12-31-2020 End: 12-31-2020 Office Visit 12/31/2020 Office Visit Endocrinology Víctor Parada, PA [address] [address] [phone] [facility] Specialty Physicians Start: 10-12-2020 Influenza vaccination Flu vaccine (#1) [facility] Phone: Comment on above: Postponed from 07/30/2019 (Patient Refus ed) Start: 07-30-2020 Influenza vaccination Flu vaccine (#1) [place], [place] Start: 06-15-2020 Diabetic retinal exam Diabetic retinal exam [facility] Phone: Start: 06-14-2020 End: 06-14-2020 Office Visit 06/14/2020 Office Visit Cardiology Sadiq Charles DO [address] [place] [address] [phone] [facility] Cardio Vascular Surgery Start: 05-23-2020 Hepatitis B vaccine (1 of 3 - Risk 3-dose series) Hepatitis B vaccine (1 of 3 - Risk 3-dose series) [facility] Phone: Comment on above: Postponed from 2000 (Patient Refus ed) Start: 05-23-2020 Pneumococcal 0-64 years Vaccine (1 of 1 - PPSV23) Pneumococcal 0-64 years Vaccine (1 of 1 - PPSV23) [employer] Phone: Comment on above: Postponed from 1987 (Patient Refus ed) Start: 01-23-2020 End: 01-23-2020 Office Visit 01/23/2020 Office Visit Family Medicine Ama Bell PA-C [address] [place] [address] [facility] Start: 01-16-2020 End: 01-16-2020 Appointment 01/16/2020 Appointment Physical Therapy [facility] Start: 01-12-2020 A1C test (Diabetic or Prediabetic) A1C test (Diabetic or Prediabetic) [facility] Phone: Start: 01-09-2020 End: 01-09-2020 Office Visit [facility] Start: 01-02-2020 End: 01-02-2020 Patient encounter procedure [facility] litation Services [facility] Start: 12-26-2019 End: 12-26-2019 Patient encounter procedure 12/26/2019 Appointment Physical Therapy Shasta Coe, PT [facility] Start: 12-19-2019 End: 12-19-2019 Patient encounter procedure 12/19/2019 Appointment Physical Therapy Shasta Coe, PT [facility] Start: 12-12-2019 End: 12-12-2019 Patient encounter procedure 12/12/2019 Appointment Physical Therapy Shasta Coe, PT [facility] Start: 12-05-2019 End: 12-05-2019 Patient encounter procedure 12/05/2019 Appointment Physical Therapy [facility] Start: 01-12-2019 Creatinine monitoring Creatinine monitoring [facility] Phone: Start: 01-12-2019 Diabetic microalbuminuria test Diabetic microalbuminuria test [employer] Phone: Start: 01-12-2019 Lipid screen Lipid screen [employer] Phone: Start: 01-12-2019 Potassium monitoring Potassium monitoring [employer] Phone: Start: 07-13-2018 [object Object] Diabetic foot exam [employer] Phone: Start: 2011 HPV TESTING HPV TESTING [facility] Start: 2011 Screening for malignant neoplasm of cervix HPV Testing [facility] Start: 2000 Hepatitis B Vaccine (1 of 3 - 19+ 3-dose series) Hepatitis B Vaccine (1 of 3 - 19+ 3-dose series) [facility] Start: 2000 Hepatitis B vaccine (1 of 3 - Risk 3-dose series) Hepatitis B vaccine (1 of 3 - Risk 3-dose series) [facility] Start: 2000 Pneumococcal vaccination Pneumococcal Vaccine (1 of 2 - PCV) [facility] Start: 1999 Anxiety Screening Anxiety Screening [facility] Start: 1999 BP Controlled (<130/80) BP Controlled (<130/80) [facility] Start: 1999 Depression Screening Depression Screening [facility] Start: 1999 Hepatitis B surface antibody level LDL CHOLESTEROL [facility] Start: 1999 [facility] Start: 1999 HEPATITIS C SCREENING HEPATITIS C SCREENING [facility] Start: 1999 HIV SCREENING HIV SCREENING [facility] Start: 1999 HIV screening HIV Screening [facility] Start: 1993 Depression Screen Depression Screen [facility] Start: 1991 3 comp foot exam completed DIABETIC FOOT EXAM [facility] Start: 1991 Hepatitis C antibody, confirmatory test DILATED RETINAL EXAM [facility] Start: 1987 PNEUMOCOCCAL (1 - PCV) PNEUMOCOCCAL (1 - PCV) [facility] Start: 1987 Pneumococcal 0-64 years Vaccine (1 - PCV) Pneumococcal 0-64 years Vaccine (1 - PCV) [facility] Start: 1987 Pneumococcal 0-64 years Vaccine (1 of 1 - PPSV23) Pneumococcal 0-64 years Vaccine (1 of 1 - PPSV23) [facility] [place] Start: 1987 Pneumococcal 0-64 years Vaccine (1 of 2 - PPSV23) Pneumococcal 0-64 years Vaccine (1 of 2 - PPSV23) [facility] Start: 1987 Pneumococcal vaccination [facility] Start: 1986 COVID-19 Vaccine (1) COVID-19 Vaccine (1) [facility] Start: 1981 COVID-19 Vaccine (#1) COVID-19 Vaccine (#1) [facility] Start: 1981 HEPATITIS B (1 of 3 - 3-dose series) HEPATITIS B (1 of 3 - 3-dose series) [facility] Start: 1981 Hepatitis B Vaccine (1 of 3 - 3-dose series) Hepatitis B Vaccine (1 of 3 - 3-dose series) [facility] Start: 1981 Hepatitis C screening Hepatitis C screen [facility] ALBUMIN/CREAT RATIO RND UR ALBUM IN/CREAT RATIO RND UR Lab Routine Type 2 diabetes mellitus with hyperglycemia, with long-term current use of insulin (HCC) Ordered: 02/17/2023 [facility] Work Phone: Comment on above: Ordered: 02/17/2023 End: 10-15-2024 Ct abdomen & pelvis w/contrast material CT ABD/PEL W IVCON Radiology Routine Intra-abdominal and pelvic swelling, mass and lump, unspecified site 1 Occurrences starting 09/16/2023 until 10/15/2024 [facility] Work Phone: Comment on above: 1 Occurrences starting 09/16/2023 until 10/15/2024 End: 11-08-2025 CT Chest WO contrast CT CHEST WO IVCON Radiology Routine Lung nodule 1 Occurrences starting 10/09/2024 until 11/08/2025 [facility] Work Phone: Comment on above: 1 Occurrences starting 10/09/2024 until 11/08/2025 CT Chest WO contrast CT CHEST WO IVCON Radiology Routine Lung nodule 11/16/2024 3:49 PM EST [facility] Work Phone: End: 01-05-2026 DBT Breast - bilateral screening EB SCREENING W LINDEN Radiology Routine Encounter for screening mammogram for breast cancer 1 Occurrences starting 12/06/2024 until 01/05/2026 [facility] Comment on above: 1 Occurrences starting 12/06/2024 until 01/05/2026 End: 05-09-2026 DBT Breast - bilateral screening EB SCREENING W LINDEN Radiology Routine Encounter for screening mammogram for breast cancer 1 Occurrences starting 04/09/2025 until 05/09/2026 [facility] Work Phone: Comment on above: 1 Occurrences starting 04/09/2025 until 05/09/2026 End: 05-05-2024 Echocardiography ECHO Cardiology Routine cardiomyopathy, Hyperlipidemia, unspecified hyperlipidemia type 1 Occurrences starting 05/05/2023 until 05/05/2024 [facility] Work Phone: Comment on above: 1 Occurrences starting 05/05/2023 until 05/05/2024 Hemoglobin A1c/Hemoglobin.total in Blood HEMOGLOBIN A1C (POC) Lab Routine Type 2 diabetes mellitus without complication, without long-term current use of insulin (HCC) Ordered: 01/12/2024 [facility] Work Phone: Comment on above: Ordered: 01/12/2024 End: 03-26-2024 EB DIAGNOSTIC LEFT EB DIAGNOSTIC LEFT Radiology Routine Abnormal mammogram 1 Occurrences starting 02/25/2023 until 03/26/2024 [facility] Work Phone: Comment on above: 1 Occurrences starting 02/25/2023 until 03/26/2024 End: 03-18-2024 EB SCREENING EB SCREENING Radiology Routine Encounter for screening mammogram for malignant neoplasm of breast 1 Occurrences starting 02/17/2023 until 03/18/2024 [facility] Work Phone: Comment on above: 1 Occurrences starting 02/17/2023 until 03/18/2024 End: 02-10-2025 MG Breast Screening EB SCREENING Radiology Routine Encounter for screening mammogram for breast cancer 1 Occurrences starting 01/12/2024 until 02/10/2025 [facility] Work Phone: Comment on above: 1 Occurrences starting 01/12/2024 until 02/10/2025 End: 11-04-2024 Mri abdomen w/o & w/contrast material MRI LIVER WO/W IVCON Radiology Routine Liver lesion 1 Occurrences starting 10/06/2023 until 11/04/2024 [facility] Work Phone: Comment on above: 1 Occurrences starting 10/06/2023 until 11/04/2024 Patient referral [facility] Work Phone: End: 10-12-2024 US ABDOMEN COMPLETE US ABDOMEN COMPLETE Radiology Routine Other ascites 1 Occurrences starting 09/13/2023 until 10/12/2024 [facility] Work Phone: Comment on above: 1 Occurrences starting 09/13/2023 until 10/12/2024 End: 03-26-2024 US BREAST LTD LEFT US BREAST LTD LEFT Radiology Routine Abnormal mammogram 1 Occurrences starting 02/25/2023 until 03/26/2024 [facility] Work Phone: Comment on above: 1 Occurrences starting 02/25/2023 until 03/26/2024 XR Foot - left AP an d Lateral and oblique XR FOOT GENERAL 3V AP/LAT/OBL LEFT Radiology Routine Pain of left heel Nodule of skin of left foot 12/06/2024 2:09 PM EST [facility] Work Phone: End: 03-18-2024 XR SHOULDER GENERAL 3V OR MORE AP/TRUE AP/OTHER RIGHT XR SHOULDER GENERAL 3V OR MORE AP/TRUE AP/OTHER RIGHT Radiology Routine Chronic right shoulder pain 1 Occurrences starting 02/17/2023 until 03/18/2024 [facility] Work Phone: Comment on above: 1 Occurrences starting 02/17/2023 until 03/18/2024 [facility] Immunizations Immunization Date Immunization Notes Care Provider Geoff arredondo 04-01-2015 tetanus toxoid, redu candida diphtheria toxoid, and acellular pertussis vaccine, adsorbed Garry Trill MRI ASSISTANT.GEOPHYSICAL LABORATORY SUPERVISOR Work Phone: [facility] 11-30-2014 tetanus toxoid, redu candida diphtheria toxoid, and acellular pertussis vaccine, adsorbed Sonia Castellano PT [facility] Work Phone: Payers Date Payer Category Payer Unknown 2024 Self-pay 2022 Medicaid [id number] 2022 Unknown [id number] 2014 Unknown [id number] 2014 Unknown [facility] xxxxxxxxxxx 2014-Present [phone] CLAIMS DEPARTMENT [address] [place] [address] xxxxxxxxxxx [id number] 1981 Unknown [id number] 1981 Unknown [id number] 2.16.840.1.917690.3.579.2.182 1981 Unknown [id number] 2.16.840.1.138426.3.579.2. 1981 Unknown [id number] 2.16.840.1.574645.3.579.2. 1981 Unknown [id number] 2.16.840.1.137761.3.579.2. 1981 Unknown [id number] 2.16.840.1.657353.3.579.2.7 1981 Unknown [id number] [id number] 1980 Unknown [id number] [id number] 1981 Unknown [id number] [id number] Unknown [id number] [id number] Unknown [id number] [id number] Unknown [id number] [id number] Social History Date Type Detail Facility Start: 11-07-2019 End: 12-06-2024 Tobacco smoking status NHIS Never smoker [employer] Phone: Start: 11-07-2019 End: 07-10-2022 Alcohol intake Current non-drinker of alcohol (finding) [facility] Phone: Start: 1980 Sex Assigned At Not on file [employer] [facility] Phone: Start: 12-13-2020 End: 12-06-2024 Tobacco use and exposure Never used [facility] [place] Start: 06-30-2022 End: 07-10-2022 Exposure to SARS-CoV-2 (event) [facility] sure [facility] [place] [place] Start: 08-11-2023 End: 09-09-2023 Tobacco smoking consumption unknown [facility] Start: 01-22-2021 History SDOH Financial 5 [employer] Phone: Start: 01-22-2021 History SDOH Food Worry 1 [employer] Phone: Start: 01-22-2021 History SDOH Transpo rt Med 2 [employer] Phone: Start: 02-17-2023 End: 04-30-2025 Alcohol intake Current drinker of alcohol (finding) [facility] Start: 02-17-2023 Alcohol Comment social [facility] Start: 05-05-2023 End: 06-25-2023 History of Social function [facility] Work Phone: Start: 05-05-2023 End: 06-25-2023 Tobacco use panel [facility] Work Phone: Adult Depression Screening Assessment 0 [facility] Work Phone: Start: 1980 Sex Assigned At Female W [facility] Sexual Orientation [facility] Sex Female (finding) [facility] NEGATED: Highlighted row [facility] Medical Equipment Procedure Code Equipment Code Equipment Origin al Text Equipment Identifier Dates [id number] Start: 12-10-2018 End: 02-17-2024 Comment on above: 1 Strip once daily. Use as instructed 1 Each once daily. U se as instructed. Preferred insurance brand. Patient checks sugar s twice daily DX E11.65 USE TO TEST BLOO D SUGAR 4 TIMES A DAYDX - DIABETES MELLITUS - 250.00 [id number] Start: 10-10-2019 by Does not appl y route. [id number] Start: 02-08-2013 Use bid [id number] Start: 03-08-2018 qid [id number] Start: 05-23-2019 USE TO TEST BLOO D SUGAR 4 TIMES A DAYDx - diabetes mellitus - 250.00 [id number] Start: 11-19-2020 qid [id number] Start: 12-05-2020 Patient checks sugars twice daily DX E11.65 [id number] Start: 02-25-2023 End: 12-04-2024 Patient checks sugars twice daily DX E11.65 [id number] Start: 02-25-2023 End: 12-04-2024 1 Strip once daily. Use as instructed [id number] Start: 02-17-2023 End: 02-25-2023 1 Each once pepe y. Use as instructed. Preferred insurance brand. [id number] Start: 02-17-2023 End: 02-25-2023 Patient checks sugars twice daily DX E11.65 [id number] Start: 12-05-2024 End: 06-08-2025 Patient checks sugars twice daily DX E11.65 [id number] Start: 12-05-2024 1 strip two time s a day. Patient checks sugars twice daily DX E11.65 [id number] Start: 06-08-2025 End: 06-08-2026 Goals Date Patient Goal Desired Activity /State Functional Status Date Assessment Result Facility 08-12-2023 Functional status Ambulates Sanjuana Gibson [facility] Work Phone: Mental Status Date Assessment Result Facility 08-12-2023 Cognitive function Voice/Name Sanjuana Momin [facility] [place], [place] Work Phone: Clinical Notes 11-12-2011 to 06-26-2025 [...] Please review and advise. Pilar Wallace MA [facility] 06-26-2025 Miscellaneous Notes Formattin g of this note is different from the original. patient electronically requesting refills as follows: Last seen 04/09/25. Requested Prescriptions Pending Prescriptions Disp Refills lisinopril (ZESTRIL) 20 mg tablet 180 tablet Sig: Take 1 tablet by mouth two times a day. Please review and advise. Pilar Wallace MA documented in this encounter [facility] 06-20-2025 Progress note [facility] 06-20-2025 Progress note Note Date/Time June 20, 2025 8:44am [facility] [address] [place] [address] 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 Author [...] T-score by a minimum 5 points. Improved [place] in home exercise program. Currently met Patient [...] Patient to be seen for Therapeutic exercise (23908), Neuromuscular re-education (76416), Therapeutic activities (62811), Manual therapy (96436), Self-residential management (54347), Gait Training (81431), Patient/Family/Caregiver Education, Body Mechanics Training PLAN FOR [...] TherapyTreatment Minutes: 15 Skilled (more content not included)...[facility]07-03-2025 History of Present illness Narrative* Federico Ambriz, [...] T-score by a minimum 5 points. Improved [place] in home exercise program. Currently met Patient [...] Patient to be seen for Therapeutic exercise (97103), Neuromuscular re-education (41065), Therapeutic activities (11956), Manual therapy (62081), Self-residential management (92205), Gait Training (31659), Patient/Family/Caregiver Education, Body Mechanics Training PLAN FOR [...] Ambriz PT - 05/30/2025 8:48 AM EDT Program_ID:[id number] Access Code: [email or web address] URL: [email or web address] Date: 05-30-2025 Prepared By: Federico Ambriz Program [...] sets - 10 reps documented in this encounterGenesis Hospital06-03-2025 NoteHNO ID: [id number] Author: EMILIA GRIFFITHS, ? Service: ? 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 - Employer is [...] using boot as symptoms improve Recording using [employer] software for draft documentation of the visit was discussed with the patient/authorized charter representative; all questions welcomed and answered. Patient/authorized charter representative agreed to proceed Emilia Griffiths 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 - Employer is [...] the visit was discussed with the patient/authorized charter representative; all questions welcomed and answered. Patient/authorized charter representative agreed to proceed Emilia Griffiths DPM * [...] long time. EBENEZER 03/26/25 documented in this encounterGenesis Hospital06-02-2025 Instructions* Patient Instructions* Emilia Griffiths - [...] time on their feet, such as nurses, rad technologist/waiters, andmail carriers, often experience plantar fasciitis. Athletes [...] choose the one that fits the best. [place] with your athletic shoes to find a [...] and repeat the exercise. documented in this encounterGenesis Hospital06-02-2025 NoteHNO ID: [id number] Author: PIPER WILLIAMSON, RN Service: ? Author [...] to be out walking a long time. [facility] 03/26/25[facility]05-14-2025 NoteHNO ID: [id number] Author: FEDERICO AMBRIZ PT Service: ? Author [...] increase T-score by a minimum 5 points. [place] in home exercise program. Patient will decrease [...] Planned: 6 Planned Treatment Interventions: Therapeutic exercise (23040), Neuromuscular re-education (49737), Manual therapy (26919), Therapeutic activities (78241), Self-residential management (61906), Gait Training (63557), Patient/Family/Caregiver Education, Body Mechanics Training PLAN FOR [...] Demonstration TREATMENT: PT Treatme (more content not included)...[facility]05-14-2025 History of Present illness Narrative* Federico Ambriz, [...] increase T-score by a minimum 5 points. [place] in home exercise program. Patient will decrease [...] Planned: 6 Planned Treatment Interventions: Therapeutic exercise (98615), Neuromuscular re- education (44824), Manual therapy (91013), Therapeutic activities (88542), Self- residential management (66478), Gait Training (73571), Patient/Family/Caregiver Education, Body Mechanics Training PLAN FOR [...] Ambriz PT - 04/11/2025 11:45 AM EDT Program_ID:[id number] Access Code: [email or web address] URL: [email or web address] Date: 04-11-2025 Prepared By: Federico Ambriz Program [...] sets - 20 reps documented in this encounterGenesis Hospital05-13-2025 Telephone encounter Note * Telephone Encounter - Akshat Quesada MA - 04/10/2025 9:02 AM EDT Faxed. Placed in immediate scanning. Akshat Quesada MA [facility]05-13-2025 Miscellaneous Notes* Telephone Encounter - Akshat Quesada MA - 04/10/2025 9:02 AM EDT Faxed. Placed in immediate scanning. Akshat Quesada MA * Telephone Encounter - Garry Rodriguez APRN.[facility] - 04/10/2025 8:57 AM EDT Please process work forms thank you. Garry Rodriguez APRN.CNP * Telephone Encounter - Garry Rodriguez APRN.CNP - 04/05/2025 8:33 PM EDT Can we please request last OV note from Dr Blanco's office? TY! documented in this encounterGenesis Hospital05-13-2025 Telephone encounter Note * Telephone Encounter - Garry Rodriguez APRN.CNP - 04/10/2025 8:57 AM EDT Please process work forms thank you. Garry Rodriguez APRN.CNP [facility]05-13-2025 Telephone encounter Note* Telephone Encounter - [...] write it andsend it to her mychart. [facility]05-13-2025 Miscellaneous Notes* Telephone Encounter - Piper [...] they have not received letter from Dr. rGiffiths yet. The letter has to state limited walking and not justthat wear of boot. 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 Josie Goyal LPN documented in this encounterGenesis Hospital05-12-2025 NoteHNO ID: [id number] Author: GARRY RODRIGUEZ APRN.GEOPHYSICAL LABORATORY SUPERVISOR Service: ? Author Type: Nurse Practitioner Type: Progress Notes Filed: 04/09/2025 16:17 Note Text: Subjective The patient consented to the use of ambient AI software for draft documentation of the visit consistent with [facility]?s Notice of Privacy Practices. HPI Patt [...] issues. Patt's Jardiance is prescribed by her all terrain vehicle technician, Keenan JARVIS, due to her history of cardiomyopathy, CVA, and NSTEMI. Her most recent visit with cardiology was on December 13, 2024. She experienced an NSTEMI in July 2023, with a cardiac catheterization revealing no obstructive stenosis and an ejection fraction of 20%. The W[place] was likely secondary to demand ischemia from [...] and gait problem. Sk (more content not included)...[facility] History of Present illness Narrative* Garry Rodriguez, SHIRLENE.GEOPHYSICAL LABORATORY SUPERVISOR - 04/09/2025 3:48 PM EDT Subjective The patient consented to the use of [employer] software for draft documentation of the visit consistent with [facility] s Notice of Privacy Practices. HPI [...] issues. Lissys Jardiance is prescribed by her all terrain vehicle technician, Keenan JARVIS, due to her history of cardiomyopathy, CVA, and NSTEMI. Her most recent visit with cardiology was on December 13, 2024. She experienced an NSTEMI in July 2023, with a cardiac catheterization revealing no obstructive stenosis and an ejection fraction of 20%. The WV was likely secondary to demand ischemia from [...] HENT: Head: Normocephalic and atraumatic. Mouth/Throat: Lips: [place]. Eyes: General: Lids are normal. Extraocular Movements: [...] blood pressure and cardiomyopathy. Current medications include [id number] mg BID, Jardiance 25 mg daily, Lasix 40 mg daily, and lisinopril 20 mg BID. - Continue current cardiac medications. - Follow-up with all terrain vehicle technician Dr. Blanco in May. 3. Essential (primary) hypertension (I10) Blood pressure today was elevated. Lisinopril was increased to 20 mg BID in November by all terrain vehicle technician. - Contact cardiology office to report current [...] breast cancer (Z12.31) Ordered mammogram. 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 Josie Goyal LPN [facility]05-08-2025 Telephone encounter Note* Telephone Encounter - Garry Rodriguez APRN.CNP - 04/05/2025 8:33 PM EDT Can we please request last OV note from Dr Blanco's office? TY! [facility]05-08-2025 Telephone encounter Note* Telephone Encounter - Carmel Dennison MA - 04/05/2025 4:34 PM EDT Patient is informed Carmel Dennison MA [facility]05-08-2025 Miscellaneous Notes* Telephone Encounter - Carmel [...] herschedule. Garry Rodriguez APRN.CNP documented in this encounterGenesis Hospital05-08-2025 Telephone encounter Note * Telephone Encounter - Carmel Dennison MA - 04/05/2025 4:33 PM EDT ----- Message from Garry Rodriguez APRN.CNP sent at 04/04/2025 12:28 AM EDT ----- Labs are normal besides elevated glucose. She is due for diabetes visit in mid- March, please have herschedule. Garry Rodriguez APRN.GEOPHYSICAL LABORATORY SUPERVISOR [facility]04-30-2025 NoteHNO ID: [id number] Author: EMILIA GRIFFITHS, ? Service: ? Author [...] anemia 09/05/2012 NSTEMI (non-ST elevated myocardial infarction) ([facility]) 07/2023 Current Outpatient Medications Medication Sig Dispense [...] and 10.7% in July. Attestation Recording using [employer] software for draft documentation of the visit was discussed with the patient/authorized charter representative; all questions welcomed and answered. Patient/authorized charter representative agreed to proceed Emilia Aye [facility]04-30-2025 History of Present illness Narrative* Emilia [...] anemia 09/05/2012 NSTEMI (non-ST elevated myocardial infarction) ([facility]) 07/2023 Current Outpatient Medications Medication Sig Dispense [...] and 10.7% in July. Attestation Recording using [employer] software for draft documentation of the visit was discussed with the patient/authorized charter representative; all questions welcomed and answered. Patient/authorized charter representative agreed to proceed Emilia Griffiths DPM * [...] Numbness Kristyn Coffey LPN documented in this encounterGenesis Hospital04-28-2025 Instructions* Patient Instructions* Emilia Griffihts - 03/26/2025 3:27 PM EDT Images from [...] time on their feet, such as nurses, rad technologist/waiters, andmail carriers, often experience plantar fasciitis. Athletes [...] choose the one that fits the best. [place] with your athletic shoes to find a [...] MRI may be considered. documented in this encounterGenesis Hospital04-28-2025 NoteHNO ID: [id number] Author: KRISTYN COFFEY LPN Service: ? Author [...] Established Patient, Follow Up, Numbness Kristyn Coffey [facility]02-11-2025 NoteHNO ID: [id number] Author: KRISTYN COFFEY LPN Service: ? Author Type: LICENSED NURSE Type: Progress Notes Filed: 01/09/2025 15:58 Note Text: Per Dr. Griffiths, Patt was provided with powerstep gel inserts, size 9, and instructed/educated in its application, wear, and care. All questions were answered, and patient was able to demonstrate competence with the necessary skills to utilize the above equipment. Kristyn Coffey [facility]02-11-2025 History of Present illness Narrative* Kristyn Coffey [...] 01/12/2024 9.4 08/20/2023 10.7 PCP: Garry Rodriguez APRN.GEOPHYSICAL LABORATORY SUPERVISOR PAST MEDICAL HISTORY Diagnosis Date cardiomyopathy, 09/05/2012 [...] Griffiths DPM Podiatry [address] [facility] [address] Dept: [phone] Dept * Kristyn Coffey LPN - 01/09/2025 3:33 PM EST AMB ROOMING INTAKE FLOWSHEET DATA Pain Pain Level: 10 Pain Location: Foot-Left Description: Stabbing, Throbbing Duration Amount of Time: 6 Duration Units: Months Frequency: Intermittent Intervention/Comfort measure: Reposition, Relaxation Patient presents with: Left Foot - New, Pain Kristyn Coffey LPN documented in this encounterGenesis Hospital02-11-2025 Instructions* Patient Instructions* Emilia Griffiths - [...] time on their feet, such as nurses, rad technologist/waiters, andmail carriers, often experience plantar fasciitis. Athletes [...] choose the one that fits the best. [place] with your athletic shoes to find a [...] Powerstep Original Full length. Can purchase at [employer] and boots,shoes and more here in [employer], [employer] in [place] or [place]. Also can find in [place] in [facility]. Powersteps can also be purchased online, starting [...] everything fits well together documented in this encounterGenesis Hospital02-11-2025 NoteHNO ID: [id number] Author: EMILIA GRIFFITHS, ? Service: ? 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 Author Type: LICENSED NURSE Type: Progress Notes Filed: 01/09/2025 15:58 Note Text: AMB ROOMING INTAKE FLOWSHEET DATA Pain Pain Level: 10 Pain Location: Foot-Left Description: Stabbing, Throbbing Duration Amount of Time: 6 Duration Units: Months Frequency: Intermittent Intervention/Comfort measure: Reposition, Relaxation Patient presents with: Left Foot - New, Pain [facility] Tele[facility] encounter Note* Telephone Encounter - Akshat Quesada MA - 12/12/2024 7:17 AM EST Received fax that ozempic was denied. Placed in red folder to review. Akshat Quesada MA [facility]01-14-2025 Miscellaneous Notes* Telephone Encounter - Akshat Quesada MA - 12/12/2024 7:17 AM EST Received fax that ozempic was denied. Placed in red folder to review. Akshat Quesada MA documented in this encounterGenesis Hospital01-13-2025 Telephone encounter Note * Telephone Encounter - Carmel Dennison MA - 12/11/2024 8:41 AM EST Left message informing patient, phone number to reach the office was left for any questions or concerns. Carmel Dennison MA [facility]01-13-2025 Miscellaneous Notes* Telephone Encounter - Carmel Dennison MA - 12/11/2024 8:41 AM EST Left message informing patient, phone number to reach the office was left for any questions or concerns. Carmel Dennison MA * Telephone Encounter - Akshat Quesada MA - 12/11/2024 7:24 AM EST ----- Message from Garry Rodriguez APRN.GEOPHYSICAL LABORATORY SUPERVISOR sent at 12/10/2024 9:25 AM EST ----- Please notify patient results are normal. Thank you. Garry Rodriguez APRN.GEOPHYSICAL LABORATORY SUPERVISOR documented in this encounterGenesis Hospital01-13-2025 Telephone encounter Note * Telephone Encounter - Akshat Quesada MA - 12/11/2024 7:24 AM EST ----- Message from Garry Rodriguez APRN.GEOPHYSICAL LABORATORY SUPERVISOR sent at 12/10/2024 9:25 AM EST ----- Please notify patient results are normal. Thank you. Garry Rodriguez APRN.GEOPHYSICAL LABORATORY SUPERVISOR [facility]01-09-2025 Telephone encounter Note* Telephone Encounter - Akshat Quesada MA - 12/07/2024 7:19 AM EST Received fax from [email or web address] eriberto denied ozempic. Please advise. Akshat Quesada MA [facility]01-09-2025 Miscellaneous Notes* Telephone Encounter - Akshat Quesada MA - 12/07/2024 7:19 AM EST Received fax from [employer] stating erikasokelly denied ozempic. Please advise. Akshat Quesada MA documented in this encounterGenesis Hospital01-08-2025 NoteHNO ID: [id number] Author: GARRY RODRIGUEZ APRN.GEOPHYSICAL LABORATORY SUPERVISOR Service: ? Author Type: Nurse Practitioner Type: [...] screening - Dr Briones is her [place]BGYN [place] Colorectal cancer screening - na Osteoporosis screening [...] Jardiance for cardiomyopathy, she continues care with [facility] cardiology - Dr Blanco Has [...] anemia 09/05/2012 NSTEMI (non-ST elevated myocardial infarction) ([facility]) 07/2023 PAST SURGICAL HISTORY Procedure Laterality Date [...] Body: Right upper body (more content not included)...[facility] 12-06-[facility] History of Present illness Narrative* Garry Rodriguez APRN.GEOPHYSICAL LABORATORY SUPERVISOR - 12/06/2024 1:16 PM EST Subjective Patt [...] screening - Dr Briones is her OBGYN [place] Colorectal cancer screening - na Osteoporosis screening [...] Jardiance for cardiomyopathy, she continues care with [facility] cardiology - Dr Blanco Has [...] up for mammogram, yearly mammogram recommended - [facility] SCREENING W LINDEN 6. History of cardiomyopathy - ICD9: V12.59, ICD10: Z86.79 - 2010 Continue care with cardiology Dr Blanco On Jardiance - increase to 25 mg once a day 7. Screening for cervical cancer - ICD9: V76.2, ICD10: Z12.4 Patient would like new referral for PAINTING MACHINE OPERATOR - CONSULT TO [facility] 8. Pain of left heel - ICD9: [...] SCREENING Garry Rodriguez APRN.[place] documented in this encounterGenesis Hospital01-06-2025 Telephone encounter Note * Telephone Encounter [...] Please review and advise. Akshat Quesada MA [facility]01-06-2025 Miscellaneous Notes* Telephone Encounter - Akshat [...] advise. Akshat Quesada MA documented in this encounterGenesis Hospital12-19-2024 History of Present illness Narrative* Josie [...] PATIENT PRESENTS WITH AN IMPLANTABLE OR ATTACHED ENGRAVER HAND HARD METALS: No RADIOLOGY DEPARTMENT: CT; Exam(s) Completed: Chest PERIPHERAL IV DATA: Not applicable SIGNED BY: RT Jaquan(Andrew) November 16, 2024 3:50 PM documented in this encounterGenesis Hospital12-19-2024 NoteHNO ID: [id number] Author: JOSIE PARISH RT(Andrew) Service: ? Author Type: Author Agent Type: Progress Notes Filed: 11/16/2024 15:50 Note [...] PATIENT PRESENTS WITH AN IMPLANTABLE OR ATTACHED ENGRAVER HAND HARD METALS: No RADIOLOGY DEPARTMENT: CT; Exam(s) Completed: Chest PERIPHERAL IV DATA: Not applicable SIGNED BY: RT Jaquan(R) November 16, 2024 3:50 [facility]11-11-2024 Telephone encounter Note* Telephone Encounter - Akshat Quesada MA - 10/09/2024 2:35 PM EST Patient aware. Akshat JOHN Quesada [facility]11-11-2024 Miscellaneous Notes* Telephone Encounter - Kirbybinaosman [...] nodule. Pilar Wallace MA documented in this encounterGenesis Hospital11-11-2024 Telephone encounter Note * Telephone Encounter - Garry Rodriguez APRN.CNP - 10/09/2024 2:22 PM EST Thank you. Please see orders. Garry Rodriguez APRN.[place] [facility]11-11-2024 Telephone encounter Note* Telephone Encounter - Carmel Dennison MA - 10/09/2024 7:42 AM EST ----- Message from Pilar Sultana MA sent at 10/07/2023 10:14 AM EST ----- Patient due for [address] chest to monitor small lung nodule. Pilar Wallace MA [facility]04-23-2024 Telephone encounter Note* Telephone Encounter - Garry Rodriguez APRN.CNP - 03/21/2024 5:04 PM EDT Thank you, we will continue Trulicity 3 mg once a week. Garry Rodriguez APRN.CNP [facility]04-23-2024 Miscellaneous Notes* Telephone Encounter - Garry [...] Trulicity to 4 mg? documented in this encounterGenesis Hospital04-23-2024 Telephone encounter Note * Telephone Encounter - Akshat Quesada MA - 03/21/2024 3:14 PM EDT Patient states the dose she is taking now has made her sugar drop in the 70's. She got really dizzylast week. Took Trulicity dose yesterday and did not have this happen. She thinks she should keep the same dose . Please advise. Akshat Quesada MA [facility]04-22-2024 Telephone encounter Note* Telephone Encounter - Akshat Quesada MA - 03/20/2024 4:59 PM EDT Dustin on pt. Vm to contact office and let us know. Akshat Quesada MA [facility]04-22-2024 Telephone encounter Note* Telephone Encounter - Garry Rodriguez APRN.CNP - 03/20/2024 4:54 PM EDT Please call patient and see how she's feeling on Trulicity. We can increase her dose as long as sheisn't feeling too nauseated or constipated. Garry Rodriguez APRN.CNP [facility]04-22-2024 Telephone encounter Note* Telephone Encounter - Garry Rodriguez APRN.CNP - 03/20/2024 4:53 PM EDT ----- Message from Garry Rodriguez APRN.CNP sent at 02/16/2024 5:30 PM EDT ----- Increase Trulicity to 4 mg? [facility]03-20-2024 Note ORIGINAL EXAMINATION: Ultrasound pelvis, 02/16/2024 [...] Sign Date: 02/16/2024 3:21:09 PM Ordering Provider: [facility]02-14-2024 Miscellaneous Notes* Telephone Encounter - Evelin Saunders - 01/12/2024 11:[address] ABD/PEL results faxed to Dr Gabriel. Faxed to [phone] documented in this encounterGenesis Hospital02-14-2024 History of Present illness Narrative* Garry Rodriguez APRN.GEOPHYSICAL LABORATORY SUPERVISOR - 01/12/2024 9:58 AM EST Subjective Patt [...] pelvic ascites She has been seeing a PAINTING MACHINE OPERATOR in [place]. Dr Kristyn Brionse Gets pelvic pain, worse right before period [...] of focal fatty infiltration which has resolved. Interlocker: HODA Transcribe Date/Time: Dec 29 2023 3:43P [...] up for mammogram, yearly mammogram recommended - [facility] SCREENING 3. Chronic right shoulder pain - ICD9: 719.41, 338.29, ICD10: M25.511, G89.29 Referral placed for PT Had a course of meloxicam - no change X-ray was normal January 2023 - CONSULT TO PHYSICAL THERAPY 4. Fatty liver - ICD9: 571.8, ICD10: K76.0 Low fat diet, avoid NSAIDs Garry Rodriguez APRN.[place] documented in this encounterGenesis Hospital02-12-2024 Miscellaneous Notes* Telephone Encounter - Candis Nena - 01/10/2024 8:13 AM EST The patient has been scheduled on 01/12/24 at 10:20 am. documented in this encounterGenesis Hospital11-09-2023 Miscellaneous Notes* Telephone Encounter - Pilar Wallace MA - 10/07/2023 10:13 AM EST Patient informed of results, recommendations and additional imaging order. Patient states she has an appointment with a wire web worker in [place] at the end of the month and [...] bleeding, bloating. I want her to see PAINTING MACHINE OPERATOR - does she already have one or does she need a referral? There was also a very small lung nodule - needs CT chest in 1 year, please add a reminder. Garry Rodriguez APRN.[place] documented in this encounterGenesis Hospital11-08-2023 History of Present illness Narrative* Reef [...] 2023 TIME: 4:17 PM documented in this encounterGenesis Hospital10-19-2023 Miscellaneous Notes* Telephone Encounter - Pilar [...] message stating she received a message from [facility] regarding following up with her pcp regarding her recent imaging results and an actionable finding. Please advise. Pilar Wallace MA documented in this encounterGenesis Hospital10-18-2023 History of Present illness Narrative* Gardenia [...] 15, 2023 9:00 AM documented in this encounterGenesis Hospital10-13-2023 Miscellaneous Notes* Telephone Encounter - Akshat Quesada MA - 09/10/2023 10:48 AM EDT Pt aware. Reminder placed. Akshat Quesada MA * Telephone Encounter - Akshat Quesada MA - 09/10/2023 8:27 AM EDT ----- Message from Garry Rodriguez APRN.GEOPHYSICAL LABORATORY SUPERVISOR sent at 09/09/2023 10:58 PM EDT ----- Mildly elevated liver function, recheck in 3 months. Other labs WNL. Garry Rodriguez APRN.GEOPHYSICAL LABORATORY SUPERVISOR documented in this encounterGenesis Hospital10-11-2023 Miscellaneous Notes* Telephone Encounter - Iwona [...] Thanks, Tone Espino MD documented in this encounterGenesis Hospital09-14-2023 Discharge summary Author Aj Colon [facility] August 12, 2023 3:58pm Note Date/Time August 12, 2023 3:57pm [facility] Medical Records Department [address] [place] [address] Discharge Summary 08/12/23 1549 MR#: [id number] Acct: [id number] Name: PATT CRANE Rep #:[id number] : 1980 43 From: Aj mina MD PCP: ODALYS Iraheta Status:ADM IN Location: [facility] [id number] Providers Date of Admission: 08/11/23 Primary [...] % (Auto) 63.5, Lymph % (Auto) 26.6, [place] % (Auto) 7.6, Eos % (Auto) 1.3, [...] Clarity Clear, Urine pH 6.0, Ur Specific [place] 1.015, Urine Protein 30 H, Urine Glucose [...] (MDRD) Non-Af 72, BUN/Creatinine Ratio 7.7 L, [id number] H, Calcium 8.3 L, Triglycerides 99, Cholesterol 115, LDL Cholesterol 47, VLDL Cholesterol 20, HDL Cholesterol 48 08/12/23 12:36: POC Glucose 287 H Radiography Diagnostic Testing: Radiology Impression Chest X-Ray 08/11/23 18:20 IMPRESSION: No acute cardiopulmonary pathology Electronically Signed: Mateus Reynolds MD at 18:31 EDT Reading Location ID and State: [facility] / [place] Tel [phone], Service support , Chest CTA 08/11/23 18:45 [...] pm NOT,DEFINED [Non-Staff] - Garry Rodriguez NP, OUTSIDE INSTALLER APPRENTICE-C [Primary Care Provider] - Within 1 Week Disposition Disposition (needs filled in before D/C Order can be placed): Home, Self Care Charges/Coding Visit Charges Inpatient E&M: 26462 Disch Hosp >30min 08/12/23 1558 <Electronically signed by Aj Colon MD> Cosigner Signature (if applicable): CC: ODALYS Rodriguez; Dr. Aj Colon MD~ Signed [facility] Work Phone: 1(181) 561-993009-14-2023 Discharge summary Author Aj Colon [facility] August 12, 2023 3:49pm Note Date/Time August 12, 2023 3:49pm [facility] Medical Records Department [address] [place] [address] Instructions for Home/Discharge Instructions 08/12/23 1546 MR#: [id number] Acct: [id number] Name: PATT CRANE Rep #:[id number] : 1980 43 From: Aj mina MD [...] - 09/09/23 3:35 pm NOT,DEFINED [Non-Staff] - aGrry Rodriguez NP, GRANT-C [Primary Care Provider] - Within 1 Week Disposition Disposition (needs filled in before D/C Order can be placed): Home, Self Care 08/12/23 1549<Electronically signed by Aj Colon MD>Aj Colon MD CC: GEOC Garry Rodriguez; Dr. Damian Blanco MD; Dr. Ha Echevarria MD ~ Signed [facility] Work Phone: 1(305) 258-106909-14-2023 Evaluation note* Diagnosis Onset Date Resolution Status Elevated d-dimer acute Hypokalemia acute Lightheadedness acute Non-STEMI (non-ST elevated m yocardial infarction) August 12, 2023 acute Peripartum cardiomyopathy, a ntepartum condition or complication acute HTN (hypertension) [facility] Work Phone: 1(760) 524-901409-14-2023 Evaluation note* Diagnosis Onset Date Resolution Status Elevated d-dimer acute Hypokalemia acute Lightheadedness acute Non-STEMI (non-ST elevated m yocardial infarction) August 12, 2023 acute Peripartum cardiomyopathy, a ntepartum condition or complication acute HTN (hypertension) chronic Idiopathic cardiomyopathy August 12, 2023 acute Peripartum cardiomyopathy, a ntepartum condition or complication acute HTN (hypertension) [facility] Work Phone: 1(946) 610-549609-14-2023 Consult note Author Damian Blanco [facility] August 12, 2023 8:41am Note Date/Time August 12, 2023 7:20am [facility] Medical Records Department [address] [place] [address] Consultation - Cardiology 08/12/23 0715 MR#: [id number] Acct: [id number] Name: PATT CRANE Rep #:[id number] : 1980 43 From: Damian Blanco MD PCP: Garry Rodriguez OUTSIDE INSTALLER APPRENTICE-C Status:ADM IN Location: [place] [id number] Assessment & Plan Assessment/Plan (1) Non-STEMI [...] also noted to be elevated on admission. [facility] Medical History (Updated 08/12/23 @ 07:[address] Damian Blanco MD) delivery delivered Diabetes HTN (hypertension) TIA (transient ischemic attack) Home Medications carvedilol 3.125 mg tablet 3.125 mg PO BID 08/11/23 [History Last Taken Unknown] dulaglutide 0.75 mg/0.5 mL subcutaneous pen injector ([facility]) 0.75 mg subcut QWEEK 08/11/23 [History [...] % (Auto) 63.5, Lymph % (Auto) 26.6, [place] % (Auto) 7.6, Eos % (Auto) 1.3, [...] Clarity Clear, Urine pH 6.0, Ur Specific [place] 1.015, Urine Protein 30 H, Urine Glucose [...] % (Auto) 63.5, Lymph % (Auto) 26.6, [place] % (Auto) 7.6, Eos % (Auto) 1.3, [...] Clarity Clear, Urine pH 6.0, Ur Specific [place] 1.015, Urine Protein 30 H, Urine Glucose [...] 18:31 EDT Reading Location ID and State: [facility] / [place] Tel [phone], Service support , Chest CTA 08/11/23 18:45 IMPRESSION: Cardiomegaly and minor atelectasis within the dependent portion of the lungs with tiny right pleural effusion. No evidence for pulmonary embolus Electronically Signed: Mateus Reynolds MD at 19:27 EDT , 08/12/23 0841 <Electronically signed by Damian Blanco MD> Cosigner Signature (if applicable): CC: ODALYS Rodriguez; Dr. Damian Blanco MD; Dr. Ha Echevarrai MD~ Signed [facility] Work Phone: 1(813) 546-298709-14-2023 History and physical note Author Ha Echevarria [facility] August 12, 2023 5:21am Note Date/Time August 11, 2023 8:10pm [facility] Medical Records Department [address] [place] [address] H&P Exam - Hospitalist 08/11/232009 MR#: [id number] Acct: [id number] Name: PATT CRANE Rep #:[id number] : 1980 43 From: Ha Echevarria MD PCP: ODALYS Iraheta Status:ADM IN Location: [place] [address] HPI - General General Date of Admission: [...] of 60. Also her mother had CVA. [facility] Medical History delivery delivered Diabetes HTN (hypertension) [...] % (Auto) 63.5, Lymph % (Auto) 26.6, [place] % (Auto) 7.6, Eos % (Auto) 1.3, [...] Clarity Clear, Urine pH 6.0, Ur Specific [place] 1.015, Urine Protein 30 H, Urine Glucose [...] 65 minutes. Charges/Coding Visit Charges Inpatient E&M: 66760 Init Hosp L3 08/12/23 0521 <Electronically signed by Ha Echevarria MD> Cosigner Signature (if applicable): CC: ODALYS Rodriguez; Dr. Ha Echevarria MD~ Signed [facility] Work Phone: [phone]) 281-799609-14-2023 Discharge summary Author Placido Pena [facility] August 11, 2023 11:07pm Note Date/Time August 11, 2023 5:42pm [facility] Medical Records Department [address] [place] [address] Emergency Department Summary 08/11/23 MR#: [id number] Acct: [id number] Name: PATT CRANE Rep #:[id number] : 1980 43 From: Placido Pena MD PCP: Grary Rodriguez OUTSIDE INSTALLER APPRENTICEAmelie Status:ADM IN Location: [address] History of Present Illness Chief Complaint: [...] it was elevated in the 140 systolic. [facility] Medical History delivery delivered Diabetes HTN (hypertension) [...] % (Auto) 63.5 Lymph % (Auto) 26.6 [place] % (Auto) 7.6 Eos % (Auto) 1.3 [...] Clarity Clear Urine pH 6.0 Ur Specific [place] 1.015 Urine Protein 30 H Urine Glucose [...] dimer, Hypokalemia Disposition Disposition: Acute Care Hospital [facility] Discharge Date/Time: 08/11/23 21:07 What to do if you have Problems For any increased pain, shortness of breath, bleeding, nausea or vomiting, chestpain, or any unexpected problems, contact your Primary Care Provider. Call [facility] ([phone]) or report to the closest Emergency Room. Call 911 if necessary. 08/11/232306 <Electronically signed by Placido Pean MD> Cosigner Signature (if applicable): CC: ODALYS Rodirguez ~ Signed [facility] Work Phone: [phone]) 831-634109-13-2023 History of Present illness Narrative* Lauren Cotto APRN.GEOPHYSICAL LABORATORY SUPERVISOR - 08/11/2023 4:30 PM EDT Came in [...] to take her self. documented in this encounterGenesis Hospital08-07-2023 Miscellaneous Notes* Telephone Encounter - Sara Valdes RN - 07/05/2023 10:16 AM EDT Spoke with pt. Notified of test results and Dr espino's recommendations. Pt voices understanding. Pt agreeable to pickling grader and start meds. She is agreeable to labs in 2 weeks. Sara Valdes RN * Telephone Encounter - Iwona Gee LPN - 07/05/2023 9:40 AM EDT Voicemail msg left for patient to return call to [facility] to review test results. Office phone number provided. Iwona Gee LPN * Telephone Encounter - Iwona Gee LPN - 07/02/2023 8:16 AM EDT Voicemail left for patient to return call to [facility] to review test results. Office phone number [...] Thanks, Tone Espino MD documented in this encounterGenesis Hospital06-07-2023 History of Present illness Narrative* Tone Espino MD - 05/05/2023 1:47 PM EDT PRIMARY CARE PHYSICIAN: Garry Rodirguez [address] [place] [address] REFERRING PHYSICIAN: Garry Rodriguez [address] [place] [address] CHIEF COMPLAINT: History of peripartum cardiomyopathy HISTORY [...] approximately 2 to 3 years ago at [facility]. 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 ASSESSMENT: Ms. Crnae is a 43 year old female with [...] Also, this note has been created using VidaPak, a speech recognition software program, and may contain errors including punctuation, grammar, spelling, gender, and inappropriate words or phrases that pertain to the sytem. documented in this encounterGenesis Hospital06-07-2023 Instructions* Patient Instructions* Tone Espino MD - 05/05/2023 1:45 PM EDT Echocardiogram for further evaluation documented in this encounterGenesis Hospital06-07-2023 Nurse Note* Iwona Gee LPN - 05/05/2023 1:08 PM EDT Patient denies any cardiac complaints or symptoms. Iwona Gee LPN documented in this encounterGenesis Hospital04-25-2023 Miscellaneous Notes* Telephone Encounter - Akshat Quesada MA - 03/23/2023 4:03 PM EDT Prior auth on ozempic done again through cover my meds. Muñoz code [id number] . Akshat Quesada MA documented in this encounterGenesis Hospital04-25-2023 Instructions* Patient Instructions* Garry Rodriguez APRN.[place] - 03/23/2023 10:53 AM EDT Self-titrate Lantus insulin Increase Lantus by 4 units every week until fasting blood sugars are around 130 documented in this encounterGenesis Hospital04-25-2023 History of Present illness Narrative* Garry Rodriguez APRN.[place] - 03/23/2023 10:49 AM EDT This note was created using Orpro Therapeuticsriter. Subjective Patt Crane is a 42 year [...] ear normal. Nose: Nose normal. Mouth/Throat: Lips: [place]. Mouth: Mucous membranes are moist. Pharynx: Oropharynx [...] SCREENING/ASSESSMENT Garry Rodriguez APRN.[place] documented in this encounterGenesis Hospital03-30-2023 Miscellaneous Notes* Telephone Encounter - Carmel Dennison MA - 02/25/2023 12:02 PM EDT Sent a Mob[employer] message informing patient of results. Carmel Dennison [...] pain. Garry Rodriguez APRN.CNP documented in this encounterGenesis Hospital03-30-2023 Miscellaneous Notes* Telephone Encounter - Carmel [...] orders. Garry Rodriguez APRN.[place] documented in this encounterGenesis Hospital03-30-2023 Miscellaneous Notes* Telephone Encounter - Pilar [...] advise. Pilar Wallace MA documented in this encounterGenesis Hospital2023 Miscellaneous Notes* Telephone Encounter - Akshat Quesada MA - 02/24/2023 9:40 AM EDT Second request , please send. Akshat Quesada MA * Telephone Encounter - Akshat Quesada MA - 02/23/2023 2:49 PM EDT Patient requesting meter to go to [employer]. Please send. Thanks. Akshat Quesada MA documented in this encounterGenesis Hospital2023 Miscellaneous Notes* Telephone Encounter - Akshat Quesada MA - 02/24/2023 9:36 AM EDT Lm on pt. Vm prior auth done for ozempic Muñoz code [id number]. Akshat Quesada MA documented in this encounterGenesis Hospital03-28-2023 Miscellaneous Notes* Letter - Mammography Coordinator - 02/23/2023 2:27 PM EDT February 25, 2023 PID: [id number] Patt Royce [address] [place] [address] Dear Ms. Crane, Your recent breast imaging [...] who ordered/prescribed your screening mammogram: Please call [phone] or [phone] to schedule an appointment for your additional [...] and reports are [facility] as part of your permanent medical record, and are available for your continuing care. Thank you for allowing us to help in meeting your health care needs. Sincerely, Dr. Warren Interpreting Radiologist [facility] (Additional imaging) documented in this encounterGenesis Hospital03-28-2023 History of Present illness Narrative* Anel [...] 23, 2023 1:18 PM documented in this encounterGenesis Hospital03-27-2023 Miscellaneous Notes* Telephone Encounter - Garry Rodriguez APRN.CNP - 02/22/2023 11:12 AM EDT Rx changed to 3 ml pen, dose stays the same. Garry Rodriguez APRN.GEOPHYSICAL LABORATORY SUPERVISOR * Telephone Encounter - Akshat Quesada MA - 02/22/2023 11:00 AM EDT Received fax from [employer] requesting 3ml pen for ozempic due to not having 1.5 any longer. Akshat Quesada MA Placed fax in red folder. documented in this encounterGenesis Hospital03-24-2023 History of Present illness Narrative* Dena [...] 19, 2023 1:12 PM documented in this encounterGenesis Hospital03-22-2023 History of Present illness Narrative* Garry Rodriguez APRN.CNP - 02/17/2023 11:24 AM EDT This note was created using Orpro Therapeuticsriter. Subjective Patt Crane is a 42 year old female here today for diabetes follow-up visit. I reviewed past medical, surgical, social, and family histories today and updated chart. Allergies, chronic medications, and supplements were also reviewed. She is a new patient, former PCP [facility] Patient has type 2 diabetes. Diagnosed after she had her son about 11 years ago. She was in good health prior to her son being born Was on some oral meds in the past - metformin gave her GI side effects Home nurse from [facility] saw her recently, A1C was 10.0 - on 01/27/23 She has been out of medication for a little over a month Currently on Lantus insulin at bedtime 25-60 units based on her blood sugars Was seeing neurologist and all terrain vehicle technician for history of stroke and cardiomyopathy Was on coumadin then changed to different AC then told she didn't need that anymore Last neurologist and all terrain vehicle technician at [facility] Was taken off her blood [...] change. 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 Nose: Nose normal. Mouth/Throat: Lips: [place]. Mouth: Mucous membranes are moist. Pharynx: Oropharynx [...] hyperglycemia, with long-term current use of insulin ([facility]) - ICD9:250.00, 790.29, V58.67, ICD10: E11.65, Z79.4 [...] - ICD9: 626.2, ICD10: N92.0 Referral to PAINTING MACHINE OPERATOR [facility] [place] - CONSULT TO HIDE BUYER 6. cardiomyopathy, - ICD9: 674.54, ICD10: O90.3 Was following with all terrain vehicle technician yearly, would like to see CC provider in [place] area She is clinically stable and asymptomatic [...] up for mammogram, yearly mammogram recommended - [facility] SCREENING Garry Rodriguez, SHIRLENE.GEOPHYSICAL LABORATORY SUPERVISOR Reviewed patient's records in [facility]: Saw Dr Parada endocrinology 11/19/20 - was on Basaglar and meal time humalog 11/19/20 C-Peptide = 2.5, normal Saw Dr. Charles cardiology 11/08/20 - ECHO 2013 normal LVF, no LVH, no valce abn, normal diastology. 04/05/18 normal treadmill stress ECHO. EKG NSR with RBBB. Was on Eliquis but no BP meds at that time. documented in this encounterGenesis Hospital01-28-2020 History of Present illness Narrative* Татьяна Dinh, OIL WELL FISHING TOOL OPERATOR - 12/26/2019 9:20 AM [facility] Physical Therapy Cancellation/No-show Note Patient Name: Patt [...] more appt.'s [place] Signature: [facility]Cl[facility] Work Phone: [phone] History of Present illness Narrative* Moe Wong, OIL WELL FISHING TOOL OPERATOR - 12/19/2019 9:20 AM [facility] Physical Therapy Cancellation/No-show Note Patient Name: Patt [...] 12/26/2019 at 9:20. Signature: documented in this encounterDayton Children[facility] HospitalSimpleRelevance Phone: [phone]) 513-179101-14-2020 History of Present illness Narrative* Shasta Coe, PT - 12/12/2019 9:20 AM EST Therapy Cancellation/No-show Note Date: 12/12/2019 Patient Name: Patt Crane : 1980 Referring Practitioner: Ama Bell PA-C Diagnosis: Acute pain of Lt knee Visit Information: PT Visit Information PT Insurance Information: [facility] Total # of Visits Approved: 30 [...] follow up Comments: Signature: documented in this [facility] Phone: [phone]) 381-896112-31-2019 History of Present illness Narrative* Sonia Castellano, PT - 11/28/2019 9:00 AM EST [facility] PHYSICAL THERAPY EVALUATION Date: 11/28/2019 Patient Name: Patt Crane Account: [id number] : 1980 (39 y.o.) Gender: female Referring [...] Ambulation Assistance: Independent Transfer Assistance: Independent Active Keying Machine Operator: Yes 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 [facility] goal 2: Reduce pain to </= 3/10 with all stair negotiation and prolonged walking. buttermaker helper goal 3: Pt will negotiate 4-6 stairs x3 without a HR with minimal to no knee deviations. buttermaker helper goal 4: Pt will be able to squat with minimal to no knee deviations with decreased c/o pain. PT Individual Minutes Time In: 920 Time Out: 0950 Minutes: 29 Procedure Minutes:29' eval documented in this encounterDayton Children'S HospitalMobile Active Defense Work Phone: 1([phone]) 523-695412-15-2011 History of Past illness Narrative* Problem Noted Date Diagnosed Date Resolved Date Gestational diabetes mellitus, 11/12/2011 01/15/2024 documented as of this encounter (statuses as of 01/16/2024) [facility] No data available for this section [facility] Evaluation + Plan note Future Appointments Appointment Date:12/06/2024 09:00:00 AM Scheduled Provider:KRISTYN BRIONES MD Location:[facility] Appointment Type:[facility] Evaluation + Plan note Future Appointments Appointment Date:01/17/2025 10:00:00 AM Scheduled Provider:KRISTYN BRIONES MD Location:[facility] Appointment Type:[facility] Evaluation note* Diagnosis Metatarsalgia of left foot- Primary Enthesopathy of ankle and tarsus, unspecified documented in this encounter [facility] Work Phone: evaluation note* Diagnosis Type 2 [...] Other screening mammogram documented in this encounter [facility] [facility] [place]* Diagnosis Type 2 diabetes mellitus with hyperglycemia, with long-term current use of insulin (HCC)- Primary Obesity, Class II, BMI 35-39.9 Obesity, unspecified documented in this encounter [facility] note* Diagnosis Type 2 diabetes mellitus with hyperglycemia, with long-term current use of insulin (HCC) documented in this encounter [facility] note* Diagnosis Type 2 diabetes mellitus with hyperglycemia, with long-term current use of insulin (HCC) documented in this encounter [facility] note* Diagnosis Abnormal mammogram- Primary Abnormal mammogram, unspecified documented in this encounter [facility] note* Diagnosis Type 2 diabetes mellitus with hyperglycemia, with long-term current use of insulin (HCC)- Primary Obesity, Class II, BMI 35-39.9 Obesity, unspecified Depression screening Screening for depression documented in this encounter [facility] note* Diagnosis cardiomyopathy, - Primary Peripartum cardiomyopathy, Hyperlipidemia, unspecified hyperlipidemia type [facility] Diagnosis Dilated cardiomyopathy (HCC)- Primary Other primary cardiomyopathies documented in this encounter [facility] [place]* Diagnosis Onset Date Resolution Status Elevated d-dimer acute Hypokalemia acute Lightheadedness acute Non-STEMI (non-ST elevated myocardial infarction) acute [facility] Work Phone: Evaluation note* Diagnosis Dizziness- Primary Dizziness and giddiness documented in this encounter [facility] [place]* Diagnosis Hyperlipidemia, unspecified hyperlipidemia type- Primary [facility]* Diagnosis Other ascites- Primary [facility] Diagnosis Other ascites- Primary Right upper quadrant abdominal mass Abdominal or pelvic swelling, mass, or lump, right upper quadrant Abnormal abdominal ultrasound Nonspecific (abnormal) findings on radiological and other examination of abdominal area, including retroperitoneum Intra-abdominal and pelvic swelling, mass and lump, unspecified site documented in this encounter [facility] [place]* Diagnosis Epigastric pain Abdominal pain, epigastric Other ascites documented in this encounter [facility] [place]* Diagnosis Encounter for screening mammogram for malignant neoplasm of breast Other screening mammogram [facility]* Diagnosis Intra-abdominal and pelvic swelling, mass and lump, unspecified site [facility]* Diagnosis Uterine leiomyoma, unspecified location- Primary Cyst of right ovary Other and unspecified ovarian cyst Liver lesion Other specified disorders of liver documented in this encounter [facility] [place]* Diagnosis Type 2 diabetes mellitus without complication, without long-term current use of insulin (HCC)- Primary Encounter for screening mammogram for breast cancer Chronic right shoulder pain Pain in joint, shoulder region Fatty liver Other chronic nonalcoholic liver disease [facility]* Diagnosis Type 2 diabetes mellitus without complication, without long-term current use of insulin (HCC) [facility]* Diagnosis Chronic right shoulder pain Pain in joint, shoulder region [facility]* Diagnosis Lung nodule- Primary Solitary pulmonary nodule [facility]* Diagnosis Lung nodule Solitary [...] Pain in [facility] Pain of left heel- [...] for breast cancer [facility] Diagnosis Pain of left heel [...] 8:06am HTN (hypertension) chronic May 302024 8:06am [facility] Work Phone: Hospital Discharge instructions* Attachments The following attachments cannot be sent through Care Everywhere. * Metatarsalgia (Slovak) [facility] Work Phone: Hospital Discharge instructions No data available for this section [facility] Progress note No data available for this section [facility] Reason for referral (narrative)* Diagnostic Procedure Only (Routine) - Pending Review Specialty Diagnoses / Procedures Referred By Kai loyola Referred To Contact BR IMAGING Diagnoses Abnormal mammogram Procedures US BREAST LTD LEFT US BREAST UNI REAL TIME WITH IMAGE LIMITED Garry Rodriguez APRN.CNP [address] [place] [address] Br Imaging [employer] [place] [id number] Referral ID Status Reason Start Date Expiration Date Visits Requested Visits Authorized [id number] Pending Review Auto-Generat ed Referral 02/25/2023 03/26/2024 1 1 * Diagnostic Procedure Only (Routine) - Pending Review Specialty Diagnoses / Procedures Referred By Kai loyola Referred To Contact BR IMAGING Diagnoses Abnormal mammogram Procedures EB DIAGNOSTIC LEFT DIAGNOSTIC MAMMOGRAPHY COMPUTER-AIDED DETCJ UNI Garry Rodriguez APRN.CNP [address] [place] [address] [facility] [address] [place] [address] Referral ID Status Reason Start Date Expiration Date Visits Requested Visits Authorized [id number] Pending Review Auto-Generat ed Referral 02/25/2023 03/26/2024 1 1 [facility] Outpatient Procedure (Routine) - Pending Review Specialty Diagnoses / Procedures Referred By Contac t Referred To Contact [facility] Diagnoses Peripartum cardiomyopathy, Hyperlipidemia, unspecified hyperlipidemia type Procedures ECHO ECHO TTHRC R-T 2D W/WOM-MODE COMPL SPEC&COLR D Tone Espino MD [address], [address] [place] [address] [facility] [address] [place] [address] Referral ID Status Reason Start Date Expiration Date Visits Requested Visits Authorized [id number] Pending Review Auto-Generat ed Referral 05/05/2023 05/04/2024 1 1 [facility] for referral (narrative)* Diagnostic Procedure Only (Routine) - Authorized Specialty Diagnoses / Procedures Referred By Contac t Referred To Contact US IMAGING Diagnoses Other ascites Procedures US ABDOMEN COMPLETE US ABDOMINAL REAL TIME W/IMAGE DOCUMENTATION Garry Rodriguez APRN.GEOPHYSICAL LABORATORY SUPERVISOR [address] [place] [address] [place] [address] Referral ID Status Reason Start Date Expiration Date Visits Requested Visits Authorized [id number] Authorized Auto-Generat ed Referral 10/12/2024 1 1 [facility] for referral (narrative)* Diagnostic Procedure Only (Routine) - Closed Specialty Diagnoses / Procedures Referred By Contac t Referred To Contact US IMAGING Diagnoses Epigastric pain Procedures US ABD RIGHT UPPER QUADRANT US ABDOMINAL REAL TIME W/IMAGE LIMITED Garry Rodriguez APRN.GEOPHYSICAL LABORATORY SUPERVISOR [address] [place] [address] [place] [address] Referral ID Status Reason Start Date Expiration Date V isits Requested Visits Authorized [id number] Closed Auto-Generate d Referral 08/20/2023 09/18/2024 1 1 [facility] for referral (narrative)* Diagnostic Procedure Only (Routine) - Closed Specialty Diagnoses / Procedures Referred By Peterac t Referred To Contact BR IMAGING Diagnoses Encounter for screening mammogram for malignant neoplasm of breast Procedures EB SCREENING SCREENING MAMMOGRAPHY BI 2-VIEW BREAST INC CAD Garry Rodriguez APRN.CNP [address] [place] [address] Br Imaging [address] [place] [address] Referral ID Status Reason Start Date Expiration Date V isits Requested Visits Authorized [id number] Closed Auto-Generate d Referral 02/17/2023 03/18/2024 1 1 [facility] for referral (narrative)* Diagnostic Procedure Only (Routine) - Closed Specialty Diagnoses / Procedures Referred By Kai t Referred To Contact XR IMAGING Diagnoses Chronic right shoulder pain Procedures XR SHOULDER GENERAL 3V OR MORE AP/TRUE AP/OTHER RIGHT RADEX SHOULDER COMPLETE MINIMUM 2 VIEWS Garry Rodriguez APRN.GEOPHYSICAL LABORATORY SUPERVISOR [address] [place] [address] [place] [address] Referral ID Status Reason Start Date Expiration Date V isits Requested Visits Authorized [id number] Closed Auto-Generate d Referral 02/17/2023 03/18/2024 1 1 [facility] for referral (narrative)No reason for referral [facility] Work Phone: Reason for visit Narrative* Diagnostic Procedure Only (Routine) - Closed Specialty Diagnoses / Procedures Referred By Peterac t Referred To Contact US IMAGING Diagnoses Epigastric pain Procedures US ABD RIGHT UPPER QUADRANT US ABDOMINAL REAL TIME W/IMAGE LIMITED Garry Rodriguez APRN.CNP [address] [place] [address] [place] [address] Referral ID Status Reason Start Date Expiration Date V isits Requested Visits Authorized [id number] Closed Auto-Generate d Referral 08/20/2023 09/18/2024 1 1 [facility] for visit Narrative* Diagnostic Procedure Only (Routine) - Closed Specialty Diagnoses / Procedures Referred By Kai t Referred To Contact BR IMAGING Diagnoses Encounter for screening mammogram for malignant neoplasm of breast Procedures EB SCREENING SCREENING MAMMOGRAPHY BI 2-VIEW BREAST INC CAD Garry Rodriguez, MRI ASSISTANT.GEOPHYSICAL LABORATORY SUPERVISOR [address] [place] [address] Br Imaging [address] [place] [address] Referral ID Status Reason Start Date Expiration Date V isits Requested Visits Authorized [id number] Closed Auto-Generate d Referral 02/17/2023 03/18/2024 1 1 [facility] for visit Narrative* Diagnostic Procedure Only (Routine) - Closed Specialty Diagnoses / Procedures Referred By Kai t Referred To Contact XR IMAGING Diagnoses Chronic right shoulder pain Procedures XR SHOULDER GENERAL 3V OR MORE AP/TRUE AP/OTHER RIGHT RADEX SHOULDER COMPLETE MINIMUM 2 VIEWS Garry Rodriguez, MRI ASSISTANT.GEOPHYSICAL LABORATORY SUPERVISOR [address] [place] [address] [place] [address] Referral ID Status Reason Start Date Expiration Date V isits Requested Visits Authorized [id number] Closed Auto-Generate d Referral 02/17/2023 03/18/2024 1 1 [facility] for visit Narrative* Diagnostic Procedure Only (Routine) - Closed Specialty Diagnoses / Procedures Referred By Kai t Referred To Contact XR IMAGING Diagnoses Pain of left heel Nodule of skin of left foot Procedures XR FOOT GENERAL 3V AP/LAT/OBL LEFT RADEX FOOT COMPLETE MINIMUM 3 VIEWS Garry Rodriguez, MRI ASSISTANT.GEOPHYSICAL LABORATORY SUPERVISOR [address] [place] [address] [place] [address] Referral ID Status Reason Start Date Expiration Date V isits Requested Visits Authorized [id number] Closed Auto-Generate d Referral 12/06/2024 01/05/2026 1 1 [facility] Summary Purpose Family History Relationship Condition Age at Onset Recorded Date/T dayanna mother Diabetes mellitus Unknown Hypertension Unknown father Diabetes mellitus Unknown Advance Directives Documents on File Type Date Recorded Patient Nuclear Technician Expl anation Advance Directives and Living Will Power of Suspension Cord Tier Documents on File Type Date Recorded Patient Nuclear Technician Expl anation ACP-Advance Directive ACP-Power of Suspension Cord Tier Documents on File Type Date Recorded Patient Nuclear Technician Expl anation Advance Directives and Living Will Power of Suspension Cord Tier Advance Directive Response Recorded Date/ Time Living Will No August 11, 2023 5:26pm Power of Suspension Cord Tier No July 5:26pm Advance Directive Response Recorded Date/ Time Living Will No August 12, 2023 1:43pm Power of Suspension Cord Tier No July 1:43pm Advance Directive Response Recorded Date/ Time Living Will No August 12, 2023 12:43pm Power of Suspension Cord Tier No July 12:43pm History of Present Illness * Moe Wong, OIL WELL FISHING TOOL OPERATOR - 01/02/2020 9:20 AM EST [facility] Outpatient Physical Therapy Treatment Note Date: 01/02/2020 Patient: Patt Crane : 1980 Referring Practitioner: Ama Bell PA-C Diagnosis: Acute pain of Lt knee Visit Information: PT Visit Information PT Insurance Information: [facility] Total # of Visits Approved: 30 [...] Diagnosis: Corey knee pain Prognosis: Good Goals: [facility] goals Time Frame for [facility] goals : 5 weeks [facility] goal 1: Improve corey LE strength to 5/5 to improve stability with ambulation and stair negotiation. buttermaker helper goal 2: Reduce pain to </= 3/10 with [address] stair negotiation and prolonged walking. buttermaker helper goal 3: Pt will negotiate 4-6 stairs x3 without a HR with minimal to no knee deviations. buttermaker helper goal 4: Pt will be able to [...] Kam PTA - 01/09/2020 11:20 AM EST [facility] Physical Therapy Cancellation/No-show Note Patient Name: [...] NON OB TRANSVAGINAL Mike Tovar DO [address] [address] Status Reason Specialty Diagnoses / Procedures Referre d By Contact Referred To Contact Closed Radiology Diagnoses Menorrhagia with regular cycle Procedures US PELVIS COMPLETE Mike Tovar DO [address] [facility] [address] [place] [address] Specialty Diagnoses / Procedures Referred By Kai t Referred To Contact [facility] Diagnoses Chronic right shoulder pain Procedures CONSULT TO PHYSICAL THERAPY PHYSICAL THERAPY EVALUATION HIGH COMPLEX 45 MINS Garry Rodriguez APRN.GEOPHYSICAL LABORATORY SUPERVISOR [address] [place] [address] [facility] [address] [place] [address] Referral ID Status Reason Start Date Expiration Date Visits Requested Visits Authorized [id number] Pending Review Auto-Generat ed Referral 02/18/2023 02/18/2024 1 1 Specialty Diagnoses / Procedures Referred By Contac t Referred To Contact Garry Rodriguez APRN.GEOPHYSICAL LABORATORY SUPERVISOR [address] [place] [address] Referral ID Status Reason Start Date Expiration Date Visits Re quested Visits Authorized [id number] Closed 1 1 Specialty Diagnoses / Procedures Referred By Contac t Referred To Contact XR IMAGING Diagnoses Chronic right shoulder pain Procedures XR SHOULDER GENERAL 3V OR MORE AP/TRUE AP/OTHER RIGHT RADEX SHOULDER COMPLETE MINIMUM 2 VIEWS Garry Rodriguez APRN.GEOPHYSICAL LABORATORY SUPERVISOR [address] [place] [address] X[facility] Referral ID Status Reason Start Date Expiration Date Visits Requested Visits Authorized [id number] Pending Review Auto-Generat ed Referral 02/17/2023 03/18/2024 1 1 Specialty Diagnoses / Procedures Referred By Contac t Referred To Contact Neurology / [facility] Department Diagnoses Cerebrovascular accident (CVA) due to embolism of left middle cerebral artery (HCC) Procedures CONSULT TO NEUROLOGY OFFICE/OUTPATIENT [facility] MDM 60-74 MINUTES Garry Rodriguez APRN.GEOPHYSICAL LABORATORY SUPERVISOR [address] [place] [address] Leti Cox MD Referral ID Status Reason Start Date Expiration Date Visits Requested Visits Authorized [id number] Authorized PCP Requested Referral 02/17/2023 02/17/2024 1 1 Specialty Diagnoses / Procedures Referred By Contac t Referred To Contact Cardiology Diagnoses Primary hypertension Peripartum cardiomyopathy, Procedures CONSULT TO CARDIOLOGY OFFICE/OUTPATIENT NEW [facility] MDM 60-74 MINUTES Garry Rodriguez APRN.GEOPHYSICAL LABORATORY SUPERVISOR [address] [place] [address] Johnna Lennon MD [address] [facility] [place] [address] Referral ID Status Reason Start Date Expiration Date Visits Requested Visits Authorized [id number] Authorized PCP Requested Referral 02/17/2023 02/17/2024 1 1 Specialty Diagnoses / Procedures Referred By Contac t Referred To Contact [facility] Department Diagnoses Type 2 diabetes mellitus with hyperglycemia, with long-term current use of insulin (HCC) Wears glasses Procedures CONSULT TO OPHTHALMOLOGY OFFICE/OUTPATIENT [facility] MDM 60-74 MINUTES Garry Rodriguez APRN.GEOPHYSICAL LABORATORY SUPERVISOR [address] [place] [address] [facility] Referral ID Status Reason Start Date Expiration Date Visits Requested Visits Authorized [id number] Authorized PCP Requested Referral 02/17/2023 02/17/2024 1 1 Specialty Diagnoses / Procedures Referred By Contac t Referred To Contact HIDE BUYER / [facility] Department Diagnoses Menorrhagia with regular cycle Procedures CONSULT TO HIDE BUYER OFFICE/OUTPATIENT [facility] MDM 60-74 MINUTES Garry Rodriguez APRN.GEOPHYSICAL LABORATORY SUPERVISOR [address] [place] [address] [facility] Referral ID Status Reason Start Date Expiration Date Visits Requested Visits Authorized [id number] Authorized PCP Requested Referral Auto-Generate d Referral 02/17/2023 02/17/2024 1 1 Specialty Diagnoses / Procedures Referred By Contac t Referred To Contact BR IMAGING Diagnoses Encounter for screening mammogram for malignant neoplasm of breast Procedures EB SCREENING SCREENING MAMMOGRAPHY BI 2-VIEW BREAST INC CAD Garry Rodriguez MRI ASSISTANT.GEOPHYSICAL LABORATORY SUPERVISOR [address] [place] [address] Br Imaging [address] [place] [address] Referral ID Status Reason Start Date Expiration Date Visits Requested Visits Authorized [id number] Pending Review Auto-Generat ed Referral 02/17/2023 03/18/2024 1 1 Specialty Diagnoses / Procedures Referred By Contac t Referred To Contact CT IMAGING Diagnoses Intra-abdominal and pelvic swelling, mass and lump, unspecified site Procedures CT ABD/PEL W IVCON CT ABD & PELVIS W/CONTRAST Garry Rodriguez, MRI ASSISTANT.GEOPHYSICAL LABORATORY SUPERVISOR [address] [place] [address] [place] [address] Referral ID Status Reason Start Date Expiration Date Visits Requested Visits Authorized [id number] Pending Review Auto-Generat ed Referral 10/15/2024 1 1 Referral ID Status Reason Start Date Expiration Date V isits Requested Visits Authorized [id number] Closed Auto-Generate d Referral 09/18/2023 11/17/2023 1 1 Specialty Diagnoses / Procedures Referred By Contac t Referred To Contact MR IMAGING Diagnoses Liver lesion Procedures MRI LIVER WO/W IVCON MRI ABDOMEN W/O & W/CONTRAST MATERIAL Garry Rodriguez, MRI ASSISTANT.GEOPHYSICAL LABORATORY SUPERVISOR [address] [place] [address] Mr Imaging [facility] Referral ID Status Reason Start Date Expiration Date Visits Requested Visits Authorized [id number] Pending Review Auto-Generat ed Referral 10/06/2023 11/04/2024 1 1 Referral ID Status Reason Start Date Expiration Date Visits Requested Visits Authorized [id number] Pending Review Auto-Generat ed Referral 01/12/2024 01/11/2025 1 1 Specialty Diagnoses / Procedures Referred By Contac t Referred To Contact BR IMAGING Diagnoses Encounter for screening mammogram for breast cancer Procedures EB SCREENING SCREENING MAMMOGRAPHY BI 2-VIEW BREAST INC CAD Garry Rodriguez, MRI ASSISTANT.GEOPHYSICAL LABORATORY SUPERVISOR [address] [place] [address] [facility] [address] [place] [address] Referral ID Status Reason Start Date Expiration Date Visits Requested Visits Authorized [id number] Pending Review Auto-Generat ed Referral 01/12/2024 02/10/2025 1 1 Specialty Diagnoses / Procedures Referred By Contac t Referred To Contact CT IMAGING Diagnoses Lung nodule Procedures CT CHEST WO IVCON DIAGNOSTIC COMPUTED TOMOGRAPHY THORAX W/O CNTRST Garry Rodriguez, MRI ASSISTANT.GEOPHYSICAL LABORATORY SUPERVISOR [address] [place] [address] [address] [place] [address] Referral ID Status Reason Start Date Expiration Date Visits Requested Visits Authorized [id number] New Request Auto-Generat ed Referral 11/08/2025 1 1 Specialty Diagnoses / Procedures Referred By Contac t Referred To Contact Podiatry / [facility] DEPARTMENT Diagnoses Pain of left heel Nodule of skin of left foot Procedures CONSULT TO PODIATRY OFFICE/OUTPATIENT [facility] 60 MINUTES Garry Rodriguez, MRI ASSISTANT.GEOPHYSICAL LABORATORY SUPERVISOR [address] [place] [address] Emilia Griffiths [address] [address] Referral ID Status Reason Start Date Expiration Date Visits Requested Visits Authorized [id number] Authorized PCP Requested Referral 12/06/2024 12/06/2025 1 1 Specialty Diagnoses / Procedures Referred By Contac t Referred To Contact XR IMAGING Diagnoses Pain of left heel Nodule of skin of left foot Procedures XR FOOT GENERAL 3V AP/LAT/OBL LEFT RADEX FOOT COMPLETE MINIMUM 3 VIEWS Garry Rodriguez, MRI ASSISTANT.GEOPHYSICAL LABORATORY SUPERVISOR [address] [place] [address] [place] [address] Referral ID Status Reason Start Date Expiration Date V isits Requested Visits Authorized [id number] Closed Auto-Generate d Referral 12/06/2024 01/05/2026 1 1 Specialty Diagnoses / Procedures Referred By Contac t Referred To Contact Publicity Agent / [facility] DEPARTMENT Diagnoses Screening for cervical cancer Procedures CONSULT TO HIDE BUYER OFFICE/OUTPATIENT [facility] MDM 60 MINUTES Garry Rodriguez, MRI ASSISTANT.GEOPHYSICAL LABORATORY SUPERVISOR [address] [place] [address] Zeina Dasilva MD [address] [place] [address] Referral ID Status Reason Start Date Expiration Date Visits Requested Visits Authorized [id number] Authorized PCP Requested Referral Auto-Generate d Referral 12/06/2024 12/06/2025 1 1 Specialty Diagnoses / Procedures Referred By Kai t Referred To Contact Diagnoses Type 2 diabetes mellitus with hyperglycemia, without long-term current use of insulin (HCC) Garry Rodriguez APRN.[place] [address] [place] [address] Referral ID Status Reason Start Date Expiration Date Visits Re quested Visits Authorized [id number] Denied 1 1 Specialty Diagnoses / Procedures Referred By Kai loyola Referred To Contact BR IMAGING Diagnoses Encounter for screening mammogram for breast cancer Procedures EB SCREENING W LINDEN SCREENING DIGITAL BREAST TOMOSYNTHESIS BI SCREENING MAMMOGRAPHY BI 2-VIEW BREAST INC CAD Garry Rodriguez, SHIRLENE.GEOPHYSICAL LABORATORY SUPERVISOR [address] [place] [address] [facility] [address] [place] [address] Referral ID Status Reason Start Date Expiration Date Visits Requested Visits Authorized [id number] New Request Auto-Generat ed Referral 12/06/2024 01/05/2026 [...] section and content) DATE CREATED AUTHOR 05/25/2018 [facility] DATE CREATED AUTHOR AUTHOR'S ORGANIZ ATION 05/25/2018 [facility] DATE CREATED AUTHOR AUTHOR'S ORGANIZ ATION [facility]20[facility] DATE CREATED AUTHOR AUTHOR'S ORGANIZ ATION 08/21/2021 [facility] DATE CREATED AUTHOR AUTHOR'S ORGANIZ ATION 07/11/2022 [facility] DATE CREATED AUTHOR AUTHOR'S ORGANIZ ATION 05/24/2024 [facility] DATE CREATED AUTHOR AUTHOR'S ORGANIZ ATION 12/16/2024 [facility] DATE CREATED AUTHOR AUTHOR'S ORGANIZ ATION 05/18/2025 [facility] DATE CREATED AUTHOR AUTHOR'S ORGANIZ ATION 06/01/2025 [facility] DATE CREATED AUTHOR AUTHOR'S ORGANIZ ATION 06/21/2025 [facility] Reason for Visit (unrecogniz ed section and content) Reason Comments PT Progress Note Specialty Diagnoses / Procedures Referred By Contac t Referred To Contact [facility] Diagnoses Pain of left heel Plantar fasciitis Procedures CONSULT TO PHYSICAL THERAPY PHYSICAL THERAPY EVALUATION HIGH COMPLEX 45 MINS Emilia Griffiths [address] [place] [address] Phone: tel: fax: [facility] [address] [place] [address] Referral ID Status Reason Start Date Expiration Date Visits Requested Visits Authorized [id number] Authorized Auto-Generat ed Referral 11/29/2024 11/28/2025 [address] Specialty Diagnoses / Procedures Referred By Contac t Referred To Contact CT IMAGING Diagnoses Intra-abdominal and pelvic swelling, mass and lump, unspecified site Procedures CT ABD/PEL W IVCON CT ABD & PELVIS W/CONTRAST Garry Rodriguez, MRI ASSISTANT.GEOPHYSICAL LABORATORY SUPERVISOR [address] [place] [address] [place] [address] Referral ID Status Reason Start Date Expiration Date V isits Requested Visits Authorized [id number] Closed Auto-Generate d Referral 09/18/2023 11/17/2023 1 1 Status Reason Specialty Diagnoses / Procedures Referre d By Contact Referred To Contact Closed Radiology Diagnoses Menorrhagia with regular cycle Procedures US PELVIS COMPLETE Mike Tovar, DO [address] [facility] [address] [place] [address] Specialty Diagnoses / Procedures Referred By Contbarbara t Referred To Contact Dietitian Diagnoses Type 2 diabetes mellitus with hyperglycemia, with long-term current use of insulin (HCC) Class 2 severe obesity due to excess calories with serious comorbidity and body mass index (BMI) of 37.0 to 37.9 in adult (HCC) Cardiomyopathy, peripartum, Dyslipidemia Essential hypertension Ama Bell PA-C [address] [place] [address] [facility] [address] [place] [address] Referral ID Status Reason Start Date Expiration Date V isits Requested Visits Authorized [id number] Open Specialty Services Required 11/27/2021 11/27/2022 1 1 Status Reason Specialty Diagnoses / Procedures Referred By Contact Referred To Contact Authorized Specialty Services Required Physical Therapy Diagnoses Acute pain of left knee Procedures 30 visits each discipline calendar year @ 100% medicaid allowed amount Effective 07/30/14 no term date Ama Bell PA-C [address] [place] [address] [place] [address] [place] [address] Reason Comments Foot Pain Pt c/o R foot pain s nyla this AM; denies injury, or trauma Specialty Diagnoses / Procedures Referred By Kai loyola Referred To Contact [facility] [address] [place] [address] [facility] [address] [place] [address] Referral ID Status Reason Start Date Expiration Date Visits Re quested Visits Authorized [id number] 1 Reason Comments Establish Care Diabetes [...] COMPUTED TOMOGRAPHY THORAX W/O CNTRST Garry Rodriguez, MRI ASSISTANT.GEOPHYSICAL LABORATORY SUPERVISOR [address] [place] [address] [address] [facility] [place] [address] Referral ID Status Reason Start Date Expiration Date V isits Requested Visits Authorized [id number] Closed Auto-Generate d Referral 10/23/2024 12/22/2024 1 [...] NEW HIGH MDM 60 MINUTES Garry Rodriguez, MRI ASSISTANT.GEOPHYSICAL LABORATORY SUPERVISOR [address] [place] [address] Phone: tel: fax: Emilia Griffiths [address] [address] Phone: tel: fax: Referral ID Status Reason Start Date Expiration Date V isits Requested Visits Authorized [id number] Closed PCP Requested Referral 12/06/2024 12/06/2025 1 [...] Care Teams (unrecognized sec tion and content) Technical Assistance Consultant Relationship Specialty Start Date End Date Ama Bell PA-C PCP - General Physician Civil Division Commander Deputy Sheriff 08/05/17 Technical Assistance Consultant Relationship Specialty Start Date End Date Ama Bell PA-C PCP - General Physician Civil Division Commander Deputy Sheriff 08/05/17 Technical Assistance Consultant Relationship Specialty Start Date End Date Garry Rodriguez APRN.GEOPHYSICAL LABORATORY SUPERVISOR [address] [place] [address] PCP - General Family Medicine 02/17/23 Technical Assistance Consultant Relationship Specialty Start Date End Date Garry Rodriguez MRI ASSISTANT.GEOPHYSICAL LABORATORY SUPERVISOR [address] [place] [address] PCP - General Family Medicine 02/17/23 Technical Assistance Consultant Relationship Specialty Start Date End Date Garry Rodriguez APRN.GEOPHYSICAL LABORATORY SUPERVISOR [address] [place] [address] PCP - General Family Medicine 02/17/23 Technical Assistance Consultant Relationship Specialty Start Date End Date Garry Rodriguez APRN.GEOPHYSICAL LABORATORY SUPERVISOR [address] [place] [address] PCP - General Family Medicine 02/17/23 Technical Assistance Consultant Relationship Specialty Start Date End Date Garry Rodriguez MRI ASSISTANT.GEOPHYSICAL LABORATORY SUPERVISOR [address] [place] [address] PCP - General Family Medicine 02/17/23 Technical Assistance Consultant Relationship Specialty Start Date End Date Garry Rodriguez MRI ASSISTANT.GEOPHYSICAL LABORATORY SUPERVISOR [address] [place] [address] PCP - General Family Medicine 02/17/23 Technical Assistance Consultant Relationship Specialty Start Date End Date Garry Rodriguez MRI ASSISTANT.GEOPHYSICAL LABORATORY SUPERVISOR [address] [place] [address] PCP - General Family Medicine 02/17/23 Technical Assistance Consultant Relationship Specialty Start Date End Date Garry Rodriguez MRI ASSISTANT.GEOPHYSICAL LABORATORY SUPERVISOR [address] [place] [address] PCP - General Family Medicine 02/17/23 Technical Assistance Consultant Relationship Specialty Start Date End Date Garry Rodriguez MRI ASSISTANT.GEOPHYSICAL LABORATORY SUPERVISOR [address] [place] [address] PCP - General Family Medicine 02/17/23 Technical Assistance Consultant Relationship Specialty Start Date End Date Garry Rodriguez MRI ASSISTANT.GEOPHYSICAL LABORATORY SUPERVISOR [address] [place] [address] PCP - General Family Medicine 02/17/23 Technical Assistance Consultant Relationship Specialty Start Date End Date Garry Rodriguez APRN.GEOPHYSICAL LABORATORY SUPERVISOR [address] [facility] [place] [address] PCP - General Family Medicine 02/17/23 Team Status: Active Member Role Status Dates Garry Rodriguez OUTSIDE INSTALLER APPRENTICE, OUTSIDE INSTALLER APPRENTICE-C Primary Care Provider Active Team Status: Active Member Role Status Dates Placido Pena MD Emergency Provider Active Garry Rodriguez OUTSIDE INSTALLER APPRENTICE, OUTSIDE INSTALLER APPRENTICE-C Primary Care Provider Active Dr. Ha Echevarria MD Admit Provider, Attending Pro vider Active Technical Assistance Consultant Relationship Specialty Start Date End Date Garry Rodriguez, MRI ASSISTANT.GEOPHYSICAL LABORATORY SUPERVISOR [address] [place] [address] PCP - General Family Medicine 02/17/23 Team Status: Active Member Role Status Michela Pena MD Emergency Provider Active Garry Rodriguez OUTSIDE INSTALLER APPRENTICE, OUTSIDE INSTALLER APPRENTICE-C Primary Care Provider Active Dr. Ha Echevarria MD Admit Provider, Attending Provider, Other Provider Active Dr. Damian Blanco MD Other Provider Active Team Status: Active Member Role Status Michela Pena MD Emergency Provider Active Garry Rodriguez OUTSIDE INSTALLER APPRENTICE, OUTSIDE INSTALLER APPRENTICE-C Primary Care Provider Active Dr. Ha Echevarria MD Admit Provider, Other Provide r Active Dr. Damian Blanco MD Attending Provider, Other Provide r Active Dr. Aj Colon MD Other Provider Active Team Status: Active Member Role Status Michela Pena MD Emergency Provider Active Garry Rodriguez OUTSIDE INSTALLER APPRENTICE, OUTSIDE INSTALLER APPRENTICE-C Primary Care Provider Active Dr. Ha Echevarria MD Admit Provider, Other Provide r Active Dr. Damian Blanco MD Other Provider Active Dr. Aj Colon MD Attending Provider, Other Provider Active Team Status: Inactive Member Role Status Michela Pena MD Emergency Provider Active Garry Rodriguez OUTSIDE INSTALLER APPRENTICE, OUTSIDE INSTALLER APPRENTICE-C Primary Care Provider Active Dr. aH Echevarria MD Admit Provider, Other Provide r Active Dr. Damian Blanco MD Other Provider Active Dr. Aj Colon MD Attending Provider Active Technical Assistance Consultant Relationship Specialty Start Date End Date Julio C Rodriguezarianna Momin, MRI ASSISTANT.GEOPHYSICAL LABORATORY SUPERVISOR [address] [place] [address] PCP - General Family Medicine 02/17/23 Technical Assistance Consultant Relationship Specialty Start Date End Date Julio C Rodriguezarianna Momin, MRI ASSISTANT.GEOPHYSICAL LABORATORY SUPERVISOR [address] [facility] [address] PCP - General Family Medicine 02/17/23 Technical Assistance Consultant Relationship Specialty Start Date End Date Garry Rodriguez, MRI ASSISTANT.GEOPHYSICAL LABORATORY SUPERVISOR [address] [place], [place] [id number] PCP - General Family Medicine 02/17/23 Team Status: Inactive Member Role Status Dates Garry Rodriguez OUTSIDE INSTALLER APPRENTICE, OUTSIDE INSTALLER APPRENTICE-C Primary Care Provider, Referrin g Provider Active Dr. Damian Blanco MD Attending Provider Active Team Status: Inactive Member Role Status Dates Garry Rodriguez OUTSIDE INSTALLER APPRENTICE, OUTSIDE INSTALLER APPRENTICE-C Primary Care Provider Active Alexia Stacy OUTSIDE INSTALLER APPRENTICE, OUTSIDE INSTALLER APPRENTICE-C Attending Provider, Referring P juliana Active Technical Assistance Consultant Relationship Specialty Start Date End Date Garry Rodriguez, MRI ASSISTANT.GEOPHYSICAL LABORATORY SUPERVISOR [address] [place] [address] PCP - General Family Medicine 02/17/23 Technical Assistance Consultant Relationship Specialty Start Date End Date Garry Rodriguez, MRI ASSISTANT.GEOPHYSICAL LABORATORY SUPERVISOR [address] [place] [id number] PCP - General Family Medicine 02/17/23 Technical Assistance Consultant Relationship Specialty Start Date End Date Garry Rodriguez, MRI ASSISTANT.GEOPHYSICAL LABORATORY SUPERVISOR [address] [facility], [place] [id number] PCP - General Family Medicine 02/17/23 Technical Assistance Consultant Relationship Specialty Start Date End Date Garry Rodriguez, MRI ASSISTANT.GEOPHYSICAL LABORATORY SUPERVISOR [address] [facility], [place] [id number] PCP - General Family Medicine 02/17/23 Team Status: Inactive Member Role Status Dates Garry Rodriguez OUTSIDE INSTALLER APPRENTICE, OUTSIDE INSTALLER APPRENTICE-C Primary Care Provider Active Alexia Kelley CNM Attending Provider, Referring Pro vider Active Technical Assistance Consultant Relationship Specialty Start Date End Date Trill, Garry C, MRI ASSISTANT.GEOPHYSICAL LABORATORY SUPERVISOR [address] [place] [address] PCP - General Family Medicine 02/17/23 Technical Assistance Consultant Relationship Specialty Start Date End Date Garry Rodriguez APRN.GEOPHYSICAL LABORATORY SUPERVISOR [address] [place] [address] PCP - General Family Medicine 02/17/23 Technical Assistance Consultant Relationship Specialty Start Date End Date Garry Rodriguez APRN.GEOPHYSICAL LABORATORY SUPERVISOR [address] [place] [address] PCP - General Family Medicine 02/17/23 Technical Assistance Consultant Relationship Specialty Start Date End Date Garry Rodriguez APRN.GEOPHYSICAL LABORATORY SUPERVISOR [address] [place] [address] PCP - General Family Medicine 02/17/23 Technical Assistance Consultant Relationship Specialty Start Date End Date Garry Rodriguez APRN.GEOPHYSICAL LABORATORY SUPERVISOR [address] [place] [address] PCP - General Family Medicine 02/17/23 Technical Assistance Consultant Relationship Specialty Start Date End Date Garry Rodriguez APRN.GEOPHYSICAL LABORATORY SUPERVISOR [address] [place] [address] PCP - General Family Medicine 02/17/23 Technical Assistance Consultant Relationship Specialty Start Date End Date Garry Rodriguez APRN.GEOPHYSICAL LABORATORY SUPERVISOR [address] [place] [address] PCP - General Family Medicine 02/17/23 Technical Assistance Consultant Relationship Specialty Start Date End Date Garry Rodriguez APRN.GEOPHYSICAL LABORATORY SUPERVISOR [address] [place] [address] PCP - General Family Medicine 02/17/23 Technical Assistance Consultant Relationship Specialty Start Date End Date Garry Rodriguez MRI ASSISTANT.GEOPHYSICAL LABORATORY SUPERVISOR [address] [place] [address] PCP - General Family Medicine 02/17/23 Technical Assistance Consultant Relationship Specialty Start Date End Date Garry Rodriguez MRI ASSISTANT.GEOPHYSICAL LABORATORY SUPERVISOR [address] [place] [address] PCP - General Family Medicine 02/17/23 Technical Assistance Consultant Relationship Specialty Start Date End Date Garry Rodriguez MRI ASSISTANT.GEOPHYSICAL LABORATORY SUPERVISOR [address] [place] [address] PCP - General Family Medicine 02/17/23 Technical Assistance Consultant Relationship Specialty Start Date End Date Garry Rodriguez MRI ASSISTANT.GEOPHYSICAL LABORATORY SUPERVISOR [address] [place] [address] PCP - General Family Medicine 02/17/23 Technical Assistance Consultant Relationship Specialty Start Date End Date Garry Rodriguez MRI ASSISTANT.GEOPHYSICAL LABORATORY SUPERVISOR [address] [place] [address] PCP - General Family Medicine 02/17/23 Technical Assistance Consultant Relationship Specialty Start Date End Date Garry Rodriguez MRI ASSISTANT.GEOPHYSICAL LABORATORY SUPERVISOR [address] [place] [address] PCP - General Family Medicine 02/17/23 Technical Assistance Consultant Relationship Specialty Start Date End Date Garry Rodriguez MRI ASSISTANT.GEOPHYSICAL LABORATORY SUPERVISOR [address] [place] [address] PCP - General Family Medicine 02/17/23 Technical Assistance Consultant Relationship Specialty Start Date End Date Garry Rodriguez APRN.GEOPHYSICAL LABORATORY SUPERVISOR [address] [place], [place] [id number] PCP - General Family Medicine 02/17/23 Technical Assistance Consultant Relationship Specialty Start Date End Date Garry Rodriguez APRN.GEOPHYSICAL LABORATORY SUPERVISOR [address] [place], [place] [phone] PCP - General Family Medicine 02/17/23 Technical Assistance Consultant Relationship Specialty Start Date End Date Garry Rodriguez APRN.GEOPHYSICAL LABORATORY SUPERVISOR [address] [place], [place] [id number] PCP - General Family Medicine 02/17/23 Technical Assistance Consultant Relationship Specialty Start Date End Date Garry Rodriguez APRN.GEOPHYSICAL LABORATORY SUPERVISOR [address] [place], [place] [id number] PCP - General Family Medicine 02/17/23 Team Status: Active Member Role/Relationship Status Dates Garry Rodriguez NP, NP-C Primary Care Provider Active Team Status: Inactive Member Role/Relationship Status Dates Garry Rodriguez NP, NP-C Primary Care Provider Active Start: June 20, 2025 End: June 20, 2025 Garry Rodriguez NP, OUTSIDE INSTALLER APPRENTICE-C Referring Provider Active Start: June 20, 2025 End: June 20, 2025 Keenan Lynne NP, OUTSIDE INSTALLER APPRENTICE-C Attending Provider Active S tart: June 20, [...] or prosecute any alcohol or drug abuse patient.[facility] HospitalIn the event this information is protected by the Federal Confidentiality of Alcohol and Drug Abuse Patient Records regulations: The Federal rules restrict any use of the information to criminally investigate or prosecute any alcohol or drug abuse patient.[facility] HospitalIn the event this information is protected by the Federal Confidentiality of Alcohol and Drug Abuse Patient Records regulations: The Federal rules restrict any use of the information to criminally investigate or prosecute any alcohol or drug abuse patient.[facility] HospitalIn the event this information is protected by the Federal Confidentiality of Alcohol and Drug Abuse Patient Records regulations: The Federal rules restrict any use of the information to criminally investigate or prosecute any alcohol or drug abuse patient.[facility] HospitalIn the event this information is protected by the Federal Confidentiality of Alcohol and Drug Abuse Patient Records regulations: The Federal rules restrict any use of the information to criminally investigate or prosecute any alcohol or drug abuse patient.[facility] HospitalIn the event this information is protected by the Federal Confidentiality of Alcohol and Drug Abuse Patient Records regulations: The Federal rules restrict any use of the information to criminally investigate or prosecute any alcohol or drug abuse patient.[facility] HospitalIn the event this information is protected by the Federal Confidentiality of Alcohol and Drug Abuse Patient Records regulations: The Federal rules restrict any use of the information to criminally investigate or prosecute any alcohol or drug abuse patient.[facility] HospitalIn the event this information is protected by the Federal Confidentiality of Alcohol and Drug Abuse Patient Records regulations: The Federal rules restrict any use of the information to criminally investigate or prosecute any alcohol or drug abuse patient.[facility] HospitalIn the event this information is protected by the Federal Confidentiality of Alcohol and Drug Abuse Patient Records regulations: The Federal rules restrict any use of the information to criminally investigate or prosecute any alcohol or drug abuse patient.[facility] HospitalIn the event this information is protected by the Federal Confidentiality of Alcohol and Drug Abuse Patient Records regulations: The Federal rules restrict any use of the information to criminally investigate or prosecute any alcohol or drug abuse patient.[facility] HospitalIn the event this information is protected by the Federal Confidentiality of Alcohol and Drug Abuse Patient Records regulations: The Federal rules restrict any use of the information to criminally investigate or prosecute any alcohol or drug abuse patient.[facility] HospitalIn the event this information is protected by the Federal Confidentiality of Alcohol and Drug Abuse Patient Records regulations: The Federal rules restrict any use of the information to criminally investigate or prosecute any alcohol or drug abuse patient.[facility] HospitalIn the event this information is protected by the Federal Confidentiality of Alcohol and Drug Abuse Patient Records regulations: The Federal rules restrict any use of the information to criminally investigate or prosecute any alcohol or drug abuse patient.[facility] HospitalIn the event this information is protected by the Federal Confidentiality of Alcohol and Drug Abuse Patient Records regulations: The Federal rules restrict any use of the information to criminally investigate or prosecute any alcohol or drug abuse patient.[facility] HospitalIn the event this information is protected by the Federal Confidentiality of Alcohol and Drug Abuse Patient Records regulations: The Federal rules restrict any use of the information to criminally investigate or prosecute any alcohol or drug abuse patient.[facility] HospitalIn the event this information is protected by the Federal Confidentiality of Alcohol and Drug Abuse Patient Records regulations: The Federal rules restrict any use of the information to criminally investigate or prosecute any alcohol or drug abuse patient.[facility] HospitalIn the event this information is protected by the Federal Confidentiality of Alcohol and Drug Abuse Patient Records regulations: The Federal rules restrict any use of the information to criminally investigate or prosecute any alcohol or drug abuse patient.[facility] HospitalIn the event this information is protected by the Federal Confidentiality of Alcohol and Drug Abuse Patient Records regulations: The Federal rules restrict any use of the information to criminally investigate or prosecute any alcohol or drug abuse patient.[facility] HospitalIn the event this information is protected by the Federal Confidentiality of Alcohol and Drug Abuse Patient Records regulations: The Federal rules restrict any use of the information to criminally investigate or prosecute any alcohol or drug abuse patient.[facility] HospitalIn the event this information is protected by the Federal Confidentiality of Alcohol and Drug Abuse Patient Records regulations: The Federal rules restrict any use of the information to criminally investigate or prosecute any alcohol or drug abuse patient.[facility] HospitalIn the event this information is protected by the Federal Confidentiality of Alcohol and Drug Abuse Patient Records regulations: The Federal rules restrict any use of the information to criminally investigate or prosecute any alcohol or drug abuse patient.[facility] HospitalIn the event this information is protected by the Federal Confidentiality of Alcohol and Drug Abuse Patient Records regulations: The Federal rules restrict any use of the information to criminally investigate or prosecute any alcohol or drug abuse patient.[facility] HospitalIn the event this information is protected by the Federal Confidentiality of Alcohol and Drug Abuse Patient Records regulations: The Federal rules restrict any use of the information to criminally investigate or prosecute any alcohol or drug abuse patient.[facility] HospitalIn the event this information is protected by the Federal Confidentiality of Alcohol and Drug Abuse Patient Records regulations: The Federal rules restrict any use of the information to criminally investigate or prosecute any alcohol or drug abuse patient.[facility] HospitalIn the event this information is protected by the Federal Confidentiality of Alcohol and Drug Abuse Patient Records regulations: The Federal rules restrict any use of the information to criminally investigate or prosecute any alcohol or drug abuse patient.[facility] HospitalIn the event this information is protected by the Federal Confidentiality of Alcohol and Drug Abuse Patient Records regulations: The Federal rules restrict any use of the information to criminally investigate or prosecute any alcohol or drug abuse patient.[facility] HospitalIn the event this information is protected by the Federal Confidentiality of Alcohol and Drug Abuse Patient Records regulations: The Federal rules restrict any use of the information to criminally investigate or prosecute any alcohol or drug abuse patient.[facility] HospitalIn the event this information is protected by the Federal Confidentiality of Alcohol and Drug Abuse Patient Records regulations: The Federal rules restrict any use of the information to criminally investigate or prosecute any alcohol or drug abuse patient.[facility] HospitalIn the event this information is protected by the Federal Confidentiality of Alcohol and Drug Abuse Patient Records regulations: The Federal rules restrict any use of the information to criminally investigate or prosecute any alcohol or drug abuse patient.[facility] HospitalIn the event this information is protected by the Federal Confidentiality of Alcohol and Drug Abuse Patient Records regulations: The Federal rules restrict any use of the information to criminally investigate or prosecute any alcohol or drug abuse patient.[facility] HospitalIn the event this information is protected by the Federal Confidentiality of Alcohol and Drug Abuse Patient Records regulations: The Federal rules restrict any use of the information to criminally investigate or prosecute any alcohol or drug abuse patient.[facility] HospitalIn the event this information is protected by the Federal Confidentiality of Alcohol and Drug Abuse Patient Records regulations: The Federal rules restrict any use of the information to criminally investigate or prosecute any alcohol or drug abuse patient.[facility] HospitalIn the event this information is protected by the Federal Confidentiality of Alcohol and Drug Abuse Patient Records regulations: The Federal rules restrict any use of the information to criminally investigate or prosecute any alcohol or drug abuse patient.[facility] HospitalIn the event this information is protected by the Federal Confidentiality of Alcohol and Drug Abuse Patient Records regulations: The Federal rules restrict any use of the information to criminally investigate or prosecute any alcohol or drug abuse patient.[facility] HospitalIn the event this information is protected by the Federal Confidentiality of Alcohol and Drug Abuse Patient Records regulations: The Federal rules restrict any use of the information to criminally investigate or prosecute any alcohol or drug abuse patient.[facility] HospitalIn the event this information is protected by the Federal Confidentiality of Alcohol and Drug Abuse Patient Records regulations: The Federal rules restrict any use of the information to criminally investigate or prosecute any alcohol or drug abuse patient.[facility] HospitalIn the event this information is protected by the Federal Confidentiality of Alcohol and Drug Abuse Patient Records regulations: The Federal rules restrict any use of the information to criminally investigate or prosecute any alcohol or drug abuse patient.[facility] HospitalIn the event this information is protected by the Federal Confidentiality of Alcohol and Drug Abuse Patient Records regulations: The Federal rules restrict any use of the information to criminally investigate or prosecute any alcohol or drug abuse patient.[facility] HospitalIn the event this information is protected by the Federal Confidentiality of Alcohol and Drug Abuse Patient Records regulations: The Federal rules restrict any use of the information to criminally investigate or prosecute any alcohol or drug abuse patient.[facility] HospitalIn the event this information is protected by the Federal Confidentiality of Alcohol and Drug Abuse Patient Records regulations: The Federal rules restrict any use of the information to criminally investigate or prosecute any alcohol or drug abuse patient.[facility] HospitalIn the event this information is protected by the Federal Confidentiality of Alcohol and Drug Abuse Patient Records regulations: The Federal rules restrict any use of the information to criminally investigate or prosecute any alcohol or drug abuse patient.[facility] HospitalIn the event this information is protected by the Federal Confidentiality of Alcohol and Drug Abuse Patient Records regulations: The Federal rules restrict any use of the information to criminally investigate or prosecute any alcohol or drug abuse patient.[facility] HospitalIn the event this information is protected by the Federal Confidentiality of Alcohol and Drug Abuse Patient Records regulations: The Federal rules restrict any use of the information to criminally investigate or prosecute any alcohol or drug abuse patient.[facility] HospitalIn the event this information is protected by the Federal Confidentiality of Alcohol and Drug Abuse Patient Records regulations: The Federal rules restrict any use of the information to criminally investigate or prosecute any alcohol or drug abuse patient.[facility] HospitalIn the event this information is protected by the Federal Confidentiality of Alcohol and Drug Abuse Patient Records regulations: The Federal rules restrict any use of the information to criminally investigate or prosecute any alcohol or drug abuse patient.[facility] HospitalIn the event this information is protected by the Federal Confidentiality of Alcohol and Drug Abuse Patient Records regulations: The Federal rules restrict any use of the information to criminally investigate or prosecute any alcohol or drug abuse patient.[facility] HospitalIn the event this information is protected by the Federal Confidentiality of Alcohol and Drug Abuse Patient Records regulations: The Federal rules restrict any use of the information to criminally investigate or prosecute any alcohol or drug abuse patient.[facility] HospitalIn the event this information is protected by the Federal Confidentiality of Alcohol and Drug Abuse Patient Records regulations: The Federal rules restrict any use of the information to criminally investigate or prosecute any alcohol or drug abuse patient.[facility] HospitalIn the event this information is protected by the Federal Confidentiality of Alcohol and Drug Abuse Patient Records regulations: The Federal rules restrict any use of the information to criminally investigate or prosecute any alcohol or drug abuse patient.[facility] HospitalIn the event this information is protected by the Federal Confidentiality of Alcohol and Drug Abuse Patient Records regulations: The Federal rules restrict any use of the information to criminally investigate or prosecute any alcohol or drug abuse patient.[facility] HospitalIn the event this information is protected by the Federal Confidentiality of Alcohol and Drug Abuse Patient Records regulations: The Federal rules restrict any use of the information to criminally investigate or prosecute any alcohol or drug abuse patient.[facility] Goals (unrecognized section and content) Goals [...] BE BASED ON THE PRIMARY CLINICAL RECORDS. [facility] [employer] [facility]. provides no warranty or guarantee of the accuracy or completeness of information in this document.
--- NOTE | 2025-07-15 04:56 | MRI_ITS ---
PROCEDURE: BRAIN WITHOUT CONTRAST 07/15/2025 REASON FOR EXAM: LEFT LOWER FACIAL AND DISTAL LUE NUMBNESS. TECHNIQUE: BRAIN WITHOUT CONTRAST Multiplanar and multisequence images were obtained. COMPARISON: Same day CT and CTA. FINDINGS: The ventricles are normal in size and midline in position. No evidence of acute hemorrhage or infarction. No extra-axial blood or fluid collections. The paranasal sinuses and mastoid air cells are clear. The paranasal sinuses and mastoid air cells are clear. The calvarial vault and skull base are intact. MRI/Brain without Contrast IMPRESSION: No acute intracranial abnormality. Reading Location: [id number]
[2025-07-15 05:21] LABS: Alcohol, Blood (Medical)-Serum < 10.1 mg/dL (<=10.0)
--- OUTSIDE RECORDS SUMMARY | 2025-07-15 05:27 | XMS RPT_ITS | CCD ---
Author Organization [facility] Care Team Providers Care Mixer Helper Name Role Phone LISSA ELLIOTT Unavailable Unavailable CHICO PARADA Unavailable Unavailable Augusta-Yelitza, Ama Primary Care Provider Augusta-Yelitza, Ama Primary Care Provider Required, No Pcp Unavailable Unavailable Marquise Pena Unavailable Unavailable Augusta-Yelitza PA-C, Ama Primary Care Provider Augusta-Yelitza PA-C, Ama Primary Care Provider Augusta-Yelitza PA-C, Ama Primary Care Provider AUGUSTA-YELITZA, AMA Primary Care Unavailabl e AUGUSTA-YELITZA, AMA Referring Unavailabl e AUGUSTA-YELITZA, AMA Primary Care Unavailabl e Garry Rodriguez APRN.CNP Primary Care Provider MD Placido Pena Emergency Provider [phone] Arturo PROCUREMENT COST COORDINATOR, PROCUREMENT COST COORDINATOR-C Garry Primary Care Provider Dr. Ha Echevarria Admit Provider Dr. Ha Echevarria Attending Provider Dr. Ha Echevarria Other Provider Dr. Damian Blanco Other Provider Dr. Damian Blanco Attending Provider Dr. Aj Colon Other Provider Dr. Aj Colon Attending Provider Arturo PROCUREMENT COST COORDINATOR, PROCUREMENT COST COORDINATOR-C Garry Referring Provider MD Placido Pena Emergency Provider Trill PROCUREMENT COST COORDINATOR, PROCUREMENT COST COORDINATOR-C Garry Primary Care Provider Dr. Ha Echevarria Admit Provider Dr. Ha Echevarria Attending Provider Dr. Ha Echevarria Other Provider Dr. Damian Blanco Other Provider Dr. Damian Blanco Attending Provider Dr. Aj Colon Other Provider Dr. Aj Colon Attending Provider Trill PROCUREMENT COST COORDINATOR, PROCUREMENT COST COORDINATOR-C Garry Referring Provider TRILL REFRIGERATION INSULATOR-JAVA DEVELOPER, PIERO Momin Primary Care Physician Trill REFRIGERATION INSULATOR.JAVA DEVELOPER, Garry C Primary Care Provider ANALI DAWSON, KRISTYN Attending Unavailable TRILL REFRIGERATION INSULATOR-JAVA DEVELOPER, PIERO Momin Primary Care Gabriele BRIONES MD, KRISTYN Attending Unavailable TRILL REFRIGERATION INSULATOR-JAVA DEVELOPER, PIERO Momin Primary Care Unavai lable TRILL REFRIGERATION INSULATOR-JAVA DEVELOPER, PIERO Momin Primary Care Unavabrittaney BRIONES MD, KRISTYN Attending Unavailable ANALI DAWSON, KRISTYN Attending Unavailable TRILL REFRIGERATION INSULATOR-JAVA DEVELOPER, PIERO Momin Primary Care Unavai lable TRILL REFRIGERATION INSULATOR-JAVA DEVELOPER, PIERO Momin Primary Care Unavai lable BEITLER REFRIGERATION INSULATOR-CNM, JESSICA Morales Attending Unav ailable TRILL REFRIGERATION INSULATOR-JAVA DEVELOPER, PIERO Momin Primary Care Gabriele BRIONES MD, KRISTYN Attending Unavailable ANALI DAWSON, KRISTYN Attending Unavailable TRILL REFRIGERATION INSULATOR-JAVA DEVELOPER, PIERO C Primary Care Unavai lable TRILL, GARRY C Primary Care Unavailable TRILL, GARRY C Attending Unavailable TRILL, GARRY C Referring Unavailable TRILL, GARRY C Primary Care Unavailable SELF Referring Unavailable TRILL, GARRY C Attending Unavailable TRILL, GARRY C Primary Care Unavailable EMILIA GRIFFITHS Attending Unavailable TRILL, GARRY C Primary Care Unavailable TRILL, AGRRY C Referring Unavailable TRILL, GARRY C Primary Care Unavailable FEDERICO AMBRIZ Attending Unavailable TESTRAKEEMILIA Referring Unavailable TRILL, GARRY C Primary Care Unavailable FEDERICO AMBRIZ Attending Unavailable TESTRAKE, EMILIA Referring Unavailable TRILL, GARRY C Primary Care Unavailable TESTRAKE, EMILIA Attending Unavailable TRILL, GARRY C Referring Unavailable TRILL, GARRY C Primary Care Unavailable TRILL, GARRY C Referring Unavailable TRILL, GARRY C Primary Care Unavailable TESTRAKE, EMILIA Attending Unavailable TRILL, GARRY C Primary Care Unavailable Trill PROCUREMENT COST COORDINATOR-C, Garry Primary Care Provider Trill PROCUREMENT COST COORDINATOR-C, Garry Referring Provider Roof PROCUREMENT COST COORDINATOR-C, Keenan Hickman Attending Provider [phone] Trill PROCUREMENT COST COORDINATOR, Garry Primary Care Unavailable Roof PROCUREMENT COST COORDINATOR, Keenan Hickman Attending Unavailable Trill PROCUREMENT COST COORDINATOR, Garry Referring Unavailable Trill PROCUREMENT COST COORDINATOR, Garry Primary Care Unavailable Roof PROCUREMENT COST COORDINATOR, Keenan Hickman Attending Unavailable Trill PROCUREMENT COST COORDINATOR, Garry Referring Unavailable Stacy PROCUREMENT COST COORDINATORAlexia Attending Unavailable Trill PROCUREMENT COST COORDINATOR, Garry Referring Unavailable Trill PROCUREMENT COST COORDINATOR, Garry Primary Care Unavailable Rey DAWSON, Dr. King Emergency Provider Dr. Denis Watts DO Admit Provider Unavail able Dr. Denis Watts DO Attending Provider Unav ailable Allergies Allergy Classification Reported Allergen(s) Allergy Type Date of Onset Reaction(s) Facility Latex (1 source) Latex Substance Allergy Weal (disorder) [facility] Penicillins (antibiotic) (1 source) Penicillin; Translations: [penicillin] Drug Allergy Unknown (qualifier value) [facility] (20 sources) Latex; Translations: [LATEX] Propensity to adverse reactions to drug 6 Hives, Itching, Weal (disorder) [facility] Phone: (13 sources) Penicillins; Translations: [PENICILLINS] Propensity to adverse reactions to drug 1 Anaphylaxis [facility] Phone: (1 source) Metformin And Related Propensity to adverse reactions to drug 0 Diarrhea [facility] [place] [place] (4 sources) Penicillin; Translations: [penicillin] Drug Allergy Unknown (qualifier value) [facility] (20 sources) Penicillins Drug Allergy 2 Unknown [facility] Work Phone: (6 sources) Penicillins Propensity to adverse reactions 3 UNKNOWN [facility] (12 sources) Penicillins Drug Allergy 2 Unknown [facility] Work Phone: (1 source) Latex Drug allergy (disorder) 5 [facility] Repository (1 source) Penicillins Drug allergy (disorder) 5 [facility] Rep[facility] Medications Current Medications Medication Drug Class(es) [...] Comment on above: 1 Units once daily. 0.5 ml dulaglutide 3 mg/ml auto-injector [...] 0.75 mg SC EVERY WEEK August 11, 2023:00am June 20, 2025 8:17am End: 04-09-2025 dulaglutide [...] (20 sources) Sodium-Glucose Cotransporter 2 Inhibitor Start: 12-06-19 End: 12-06-19 take 1 tablet by mouth once daily Empagliflozin (Jardiance) 25 mg tablet Active 25 mg PO daily December 13, 2024 1:00am Start: 08-12-2023 End: 12-13-2024 take 1 tablet by mouth once daily Empagliflozin (Jardiance) 10 mg tablet Discontinued 10 mg PO DAILY 90 90 3 June 07, 2024 11:14am December 13, 2024 4:20pm Comment on above: Take by mouth. enteric contrast (will be provided with radiology test) (1 source) Start: 09-16-20 End: 09-17-20 enteric contrast (will be provided with radiology [...] oral tablet (1 source) Azole Antifungal Start: 12-13-19 fluconazole (DIFLUCAN) 150 MG tablet Take 1 tablet every 2 days for 3 doses. 3 tablet 2 12/13/2020 Active ibuprofen 400 mg oral tablet (2 sources) Nonsteroidal Anti-inflammatory Drug Start: 08-14-20 End: 08-18-20 take 1 tablet by mouth three times [...] take 1 tablet by mouth twice daily Lisinopril 20 mg tablet Discontinued 20 mg PO TWICE A DAY 180 90 3 December 13, 2024 4:44pm June 20, 2025 8:44am Start: 09-09-2023 End: 12-13-2024 take 1 tablet [...] on above: Take 1 tablet by chioma once daily. losartan potassium 25 mg oral [...] End: 12-11-19 take 1 tablet by mouth at bedtime Rosuvastatin 10 mg tablet Active 10 mg PO AT BEDTIME July 15, 2025 12:00am Start: 02-21-2023 End: 02-22-2024 take 1 tablet [...] at bedtime. SITagliptin 100 mg oral tablet (10 sources) Dipeptidyl Peptidase 4 Inhibitor Start: 04-09-20 End: 10-06-20 take 1 tablet by mouth once daily Sitagliptin Phosphate (Januvia) 100 mg tablet Active 100 mg PO daily June 20, 2025 12:00am 125 ml sodium chloride 9 mg/ml prefilled [...] aspirin 81 mg delayed release oral tablet (4 sources) Platelet Aggregation Inhibitor, Nonsteroidal Anti-inflammatory Drug [...] oral capsule (5 sources) Non-narcotic Antitussive Start: 3 End: take 100-200 mg by mouth every eight hours as needed benzonatate (TESSALON PERLES) 100 mg capsule Take 1-2 capsules by mouth three times a day as needed. 45 capsule 0 09/21/2023 01/12/2024 Discontinued Comment on above: Take 1-2 capsules by mouth three times a day as needed. carvedilol 25 mg oral tablet (20 sources) alpha-Adrenergic Magnolia, beta-Adrenergic Magnolia Start: End: take 1 tablet by mouth twice daily at mealtime Carvedilol 25 mg tablet Discontinued 25 mg PO TWICE A DAY 180 3 October 16, 2024 9:34am June 20, 2025 8:44am must administer with a meal/food Start: 05-17-2024 End: 06-07-2024 take 2 tablets by mouth twice daily at mealtime Carvedilol 12.5 mg tablet Discontinued 25 mg PO TWICE A DAY 180 3 May 17, 2024 10:26am June 07, 2024 11:15am must administer with a meal/food Start: 09-09-2023 End: 04-09-2025 take 1 tablet by mouth twice daily at mealtime Carvedilol 12.5 mg tablet Discontinued 12.5 mg PO TWICE A DAY 180 3 September 09, 2023 4:12pm May 17, 2024 10:26am must administer with a meal/food Start: 08-12-2023 End: 09-09-2023 take 1 tablet [...] on above: Take 1 tablet by chioma twice daily. doxycycline hyclate 100 mg oral capsule (1 source) Tetracycline-class Drug Start: 04-02-20 End: 04-05-20 take 1 capsule by mouth twice daily [...] mg/0.5 mL pen injector (6 sources) Start: 02-16-20 End: 12-06-19 inject 3 mg by subcutaneous injection every [...] tablet by mouth three times daily . furosemide 40 mg oral tablet (20 sources) Loop Diuretic Start: 09-20-2023 End: 06-20-2025 take 1 tablet by mouth once daily Furosemide 40 mg tablet Discontinued 40 mg PO DAILY 90 3 June 07, 2024 11:14am June 20, 2025 8:18am Lasix ; orally Q uantity: 0 Refills: 0 Ordered: 01-Apr-2015 DeborahJd alves Generic Substitution Allowed 3 ml insulin glargine 100 unt/ml pen [...] without long-term current use of insulin ([facility]) Inject 0.25 mg subcutaneously one time a week. 3 mL 2 12/06/2024 06/04/2025 Active Start: 03-23-2023 End: 03-31-2023 semaglutide (OZEMPIC) 0.25 m g or 0.5 mg (2 mg/3 mL) pen Indications: Type 2 diabetes mellitus with hyperglycemia, with long-term current use of insulin ([facility]) , Obesity, Class II, BMI 35-39.9 Inject 0.25 mg subcutaneously one time a week. 3 mL 1 03/23/2023 03/31/2023 Discontinued Start: 03-23-2023 End: 06-21-2023 semaglutide (OZEMPIC) 0.25 m g or 0.5 mg (2 mg/3 mL) pen Indications: Type 2 diabetes mellitus with hyperglycemia, with long-term current use of insulin ([facility]) , Obesity, Class II, BMI 35-39.9 Inject 0.25 mg subcutaneously one time a week. 3 mL 1 03/23/2023 06/21/2023 Active Start: 02-22-2023 End: 03-23-2023 semaglutide (OZEMPIC) 0.25 m g or 0.5 mg (2 mg/3 mL) pen Indications: Type 2 diabetes mellitus with hyperglycemia, with long-term current use of insulin ([facility]) , Obesity, Class II, BMI 35-39.9 Inject 0.25 mg subcutaneously one time a week. 3 mL 1 02/22/2023 03/23/2023 Discontinued Start: 02-22-2023 End: 05-23-2023 semaglutide (OZEMPIC) 0.25 m g or 0.5 mg (2 mg/3 mL) pen Indications: Type 2 diabetes mellitus with hyperglycemia, with long-term current use of insulin ([facility]) , Obesity, Class II, BMI 35-39.9 Inject [...] sources) Vitamin K Antagonist Start: 2 End: 3 take 1 tablet by mouth once daily warfarin (COUMADIN) 7.5 mg tablet Take 1 tablet by mouth once daily. 0 10/11/2012 02/17/2023 Discontinued Coumadin ; orall y Quantity: 0 Refills: 0 Ordered: 01-Apr-2015 Jd Cabrera Generic Substitution Allowed Comment on above: Take 1 tablet by chioma once daily. Problems Active Problems Problem Classification [...] Episodic Conditions associated with dizziness or vertigo (11 sources) Lightheadedness; Translations: [Dizziness and giddiness] 08-11-2023 [...] 12-06-2024 12-06-2024 Chronic Diabetes mellitus with complications (13 sources) Type 2 diabetes mellitus; Translations: [Type 2 diabetes mellitus with hyperglycemia] Onset: 09-05-2012 Chronic Diabetes mellitus without complication (20 sources) Diabetes mellitus; Translations: [Type 2 diabetes mellitus without complication] Onset: 05-03-2012 Resolved: 12-11-2024 08-05-2017 Chronic Diabetes mellitus without complication (1 source) Diabetes mellitus without complication Onset: 08-02-2017 Disorders of lipid metabolism (20 sources) Dyslipidemia; Translations: [Hyperlipidemia, unspecified] Onset: 02-25-2018 02-25-2018 Chronic Essential hypertension (20 sources) Essential hypertension; Translations: [Essential (primary) hypertension] Onset: 02-25-2018 02-25-2018 Chronic Fluid and electrolyte disorders (11 sources) Hypokalemia; Translations: [Hypokalemia] Onset: 12-13-2024 08-11-2023 Episodic Menstrual disorders (2 sources) Menorrhagia; Translations: [Excessive and frequent menstruation with regular cycle] Chronic Nonspecific chest pain (4 sources) Chest pain; Translations: [Chest pain, unspecified] 08-14-2021 Episodic Comment on above: CHEST PAIN Other complications of ; puerperium affecting management of mother (7 sources) 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 [...] classified] 01-15-2024 Chronic Other lower respiratory disease (15 sources) Dyspnea on exertion; Translations: [Dyspnea, unspecified] Onset: 01-07-2012 01-07-2012 Episodic Other lower respiratory disease (2 sources) Nodule of lung; Translations: [Solitary pulmonary nodule] 10-09-2024 Episodic Other nervous system disorders (2 sources) Facial paresthesia; Translations: [Paresthesia of skin] 07-15-2025 Episodic Other nervous system disorders (2 sources) Paresthesia of left upper limb; Translations: [Paresthesia of skin] 07-15-2025 Episodic Other non-traumatic joint disorders (3 sources) [...] class II; Translations: [Obesity, unspecified] Chronic Other nutritional; endocrine; and metabolic disorders (2 sources) Body mass index 30+ - obesity; Translations: [Obesity, unspecified] 07-15-2025 Chronic Other screening for suspected conditions (not mental disorders or infectious disease) (20 sources) Patient encounter status; Translations: [Encounter for screening mammogram for malignant neoplasm of breast] Onset: 08-12-2023 Episodic Other skin disorders (2 sources) Nodule of skin of left foot; Translations: [Localized swelling, mass and lump, left lower limb] 12-06-2024 Episodic Terrie-; endo-; and myocarditis; cardiomyopathy (except that caused by tuberculosis or sexually transmitted disease) (9 sources) Dilated cardiomyopathy; Translations: [Dilated cardiomyopathy] Onset: 08-12-2023 07-01-2023 Chronic Pulmonary heart disease (20 sources) Pulmonary hypertension; Translations: [Pulmonary hypertension, unspecified] Onset: 01-01-2015 01-01-2015 Chronic Thyroid disorders (20 sources) Goiter; Translations: [Multinodular goiter] Onset: 09-05-2012 08-05-2017 Chronic Transient cerebral ischemia (2 sources) Transient cerebral ischemia; Translations: [Transient cerebral ischemic attack, unspecified] 07-15-2025 Chronic Unclassified (1 source) Oth cause of [...] / S93.601A(ICD-9) Onset: 08-02-2017 Unclassified (1 source) 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 / Z79.4(ICD-9) Onset: 08-02-2017 Unclassified (1 source) Allergy status to penicillin / Z88.0(ICD-9) Onset: 08-02-2017 Unclassified (1 source) Other specified soft tissue disorders / M79.89(ICD-9) Onset: 08-02-2017 Unclassified (1 source) rodent exterminator (current) use of anticoagulants / Z79.01(ICD-9) Onset: [...] anemia, unspecified] Onset: 11-12-2011 08-05-2017 Episodic Diabetes or abnormal glucose tolerance complicating ; childbirth; or the puerperium (20 sources) gestational diabetes mellitus; Translations: [Gestational diabetes mellitus in the puerperium, unspecified control] Onset: 11-12-2011 Resolved: 01-15-2024 11-12-2011 Episodic Gastrointestinal hemorrhage (11 sources) Rectal hemorrhage; Translations: [Hemorrhage of anus and rectum] Onset: 11-12-2011 11-12-2011 Episodic Genitourinary symptoms and ill-defined conditions (11 sources) Abnormal urinalysis; Translations: [Unspecified abnormal findings in urine] Onset: 06-27-2014 06-27-2014 Episodic Other aftercare (11 sources) Long-term current use of anticoagulant; Translations: [MCFP (current) use of anticoagulants] Onset: 08-30-2012 Resolved: 06-14-2019 06-14-2019 Episodic Other aftercare (2 sources) Anticoagulant effect; Translations: [rodent exterminator (current) use of anticoagulants] Onset: 11-12-2011 11-12-2011 [...] Translations: [Lung nodule] Onset: 11-16-2024 Episodic Other skin disorders (2 sources) Localized [...] Test Name Value Interpretation Reference Range Facility Absolute lymphocyte countOrd ered By: Fernando Le on 07-15-2025 Lymphocytes Auto (Unsp spec) [#/Vol] 1.36 10*3/uL 0.83-4.51 [facility] Absolute neutrophil countOrd ered By: Fernando Le on 07-15-2025 Neutrophils (Bld) [#/Vol] 4.6 10*3/uL 2.0-7.7 [facility] Activated partial thrombopla stin time (aPTT) in platelet poor plasma by coagulation aOrdered By: Fernando Le on 07-15-2025 aPTT Coag (PPP) [Time] 24.7 s 24.1-36.2 [facility] Anion gap in Serum or Plasma Ordered By: Fernando Le on 07-15-2025 Anion gap [Moles/Vol] 13 mmol/L 5-15 [facility] Automated lymphocyte count a s percentage of total leukocytesOrdered By: Fernando Le on 07-15-2025 Lymphocytes/100 WBC Auto (Unsp spec) 20.2 % 19-41 [facility] BUN/creatinine ratioOrdered By: Fernando Le on 07-15-2025 Urea nitrogen/Creatinine [Mass ratio] 11.0 mg/mg 10-20 [facility] Basophil percentageOrdered B y: Fernando Le on 07-15-2025 Basophils/100 WBC (Bld) 0.6 % 0-1 [facility] Carbon dioxide, total [Moles /volume] in Central venous bloodOrdered By: Fernando Le on 07-15-2025 CO2 [Moles/Vol] 20.8 mmol/L Low 21.0-32.0 [facility] Chloride assayOrdered By: Ruslan Le on 07-15-2025 Chloride [Moles/Vol] 100 mmol/L 98-108 [facility] Eosinophil percentageOrdered By: Fernando Le on 07-15-2025 Eosinophils/100 WBC (Bld) 1.9 % 0-5 [facility] Erythrocyte distribution wid th ratioOrdered By: Fernando Le on 07-15-2025 Erythrocyte distribution width (RBC) [Ratio] 13.6 % 11.6-14.6 [facility] Erythrocyte distribution wid th standard deviationOrdered By: Fernando Le on 07-15-2025 Erythrocyte distribution width (RBC) [Ratio] 41.3 fl 35.1-43.9 [facility] Glomerular filtration rate ( GFR) estimation/1.73 sq m using serum, plasma, or whole bOrdered By: Fernando Le on 07-15-2025 GFR/1.73 sq M.predicted among non-blacks MDRD (S/P/Bld) [Vol rate/Area] 62 mL/min/{1.73_m2} >60 [facility] Comment on above: mL/min/1.73m2 CKD-EP I Creatinine Equation (2020) Hematocrit Auto (Bld) [Volum e fraction]Ordered By: Fernando Le on 07-15-2025 Hematocrit (Bld) [Volume fraction] 43.5 % 37-47 [facility] Hemoglobin measurementOrdere d By: Fernando Le on 07-15-2025 Hemoglobin (Bld) [Mass/Vol] 14.3 g/dL 12.0-15.0 [facility] Immature granulocytes/100 WB C Auto (Bld)Ordered By: Fernando Le on 07-15-2025 Immature granulocytes/100 WBC (Bld) 0.400 % 0.0-0.9 [facility] Comment on above: IG% - Immature Granu locytes (promyelocytes, myelocytes and metamyelocytes) > 1% indicates that a LEFT SHIFT is Present. International normalized rat io (INR) calculationOrdered By: Fernando Le on 07-15-2025 INR Coag (Bld) [Relative time] 1.0 {INR} [facility] MCV (mean corpuscular volume ) determinationOrdered By: Fernando Le on 07-15-2025 MCV (RBC) [Entitic vol] 83.0 fL 81-99 [facility] Mean corpuscular hemoglobin (MCH) determinationOrdered By: Fernando Le on 07-15-2025 MCH (RBC) [Entitic mass] 27.3 pg 27.0-32.0 [facility] Mean corpuscular hemoglobin concentration (MCHC) determinationOrdered By: Fernando Le on 07-15-2025 MCHC (RBC) [Mass/Vol] 32.9 g/dL 32-36 [facility] Mean platelet volume determi nationOrdered By: Fernando Le on 07-15-2025 Platelet mean volume (Bld) [Entitic vol] 9.8 fL 6.2-12.0 [facility] Monocyte percentageOrdered B y: Fernando Le on 07-15-2025 Monocytes/100 WBC (Bld) 8.6 % 0-10 [facility] Neutrophil percentageOrdered By: Fernando Le on 07-15-2025 Neutrophils/100 WBC (Bld) 68.3 % 47-70 [facility] Nucleated red blood cell per centageOrdered By: Fernando Le on 07-15-2025 Nucleated RBC/100 WBC (Bld) [Ratio] 0 % 0-5 [facility] Platelet countOrdered By: Ruslan Le on 07-15-2025 Platelets (Bld) [#/Vol] 347 10*3/uL 150-450 [facility] Potassium measurement (mass/ volume)Ordered By: Fernando Le on 07-15-2025 Potassium (Unsp spec) [Mass/Vol] 3.8 mmol/L 3.3-5.1 [facility] Prothrombin timeOrdered By: Fernando Le on 07-15-2025 PT Coag (PPP) [Time] 13.0 s 11.7-14.9 [facility] RBC Auto (Bld) [#/Vol]Ordere d By: Fernando Le on 07-15-2025 RBC (Bld) [#/Vol] 5.24 10*6/uL 4.2-5.4 [facility] Serum creatinine measurement (mass/volume)Ordered By: Fernando Le on 07-15-2025 Creatinine [Mass/Vol] 1.13 mg/dL 0.70-1.20 [facility] Serum glucose measurement (m ass/volume)Ordered By: Fernando Le on 07-15-2025 Glucose [Mass/Vol] 301 mg/dL High 70-[address] [facility] Serum or plasma calcium lamar urement (mass/volume)Ordered By: Fernando Le on 07-15-2025 Calcium [Mass/Vol] 9.6 mg/dL 7.6-11.[address] [facility] Serum or plasma ethanol lamar urement (mass/volume)Ordered By: Denis Barbosa on 07-15-2025 Ethanol [Mass/Vol] mg/dL <10.[address] [facility] Comment on above: This test is for med ical purposes only. The legal definition of intoxication varies according to local law. Serum or plasma urea nitroge n measurement (mass/volume)Ordered By: Fernando Le on 07-15-2025 Urea nitrogen [Mass/Vol] 12 mg/dL 4-19 [facility] Sodium levelOrdered By: Walt Le on 07-15-2025 Sodium [Moles/Vol] 134 mmol/L 133-[address] [facility] Troponin T.cardiac [Mass/vol ume] in Serum or Plasma by High sensitivity methodOrdered By: Fernando Le on 07-15-2025 Troponin T.cardiac High sensitivity method [Mass/Vol] 9 ng/L <14 [facility] Troponin T.cardiac High sensitivity method [Mass/Vol] 13 ng/L <14 [facility] White blood cell (WBC) count Ordered By: Fernando Le on 07-15-2025 WBC (Bld) [#/Vol] 6.7 10*3/uL 4.4-11.[address] [facility] Cardiology Visit Reporton Cardiology Visit Report [facility] 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 [facility] [id number] 05-31-2025 [id number] HNO ID: [id number] Author: FEDERICO AMBRIZ PT Service: ? Author Type: Physical Therapist Type: [id number] Filed: 05/31/2025 15:03 Note Text: [facility] Physical Therapy Plan of Care Certification Patient Name: Patt Crane : 1980 [facility] #: [id number] Date: 05/30/2025 To: Emilia Griffiths DPM From Therapist: Federico Ambriz PT RE: Patient Certification/ Recertification Your review, approval and electronic signature are required in order to comply with Payor: [facility] MEDICAID / Plan: [facility] / Product Type: Medicaid / regulations. [...] T-score by a minimum 5 points. Improved [place] in home exercise program. Currently met Patient [...] Patient to be seen for Therapeutic exercise (55297), Neuromuscular re-education (79225), Therapeutic activities (49705), Manual therapy (00119), Self-long term management (92598), Gait Training (50260), Patient/Family/Caregiv er Education, Body Mechanics Training PLAN FOR NEXT VISIT: Continue manual as needed, progress stretching to strength per tolerance For further details regarding this patient refer to the Physical Therapy electronically documented visit dated 05/30/2025. Provider Attestation I have reviewed the treatment plan for Patt Crane [facility]# [id number] for the period of 05/30/25 -- 07/31/25, established on 05/30/2025. Signature certifies the need for therapy services. Normal [facility] CNTHERAPYon 05-30-2025 CNTHERAPY OT/PT/Speech Visit (PTWS) PATT CRANE ([id number]) 1980 F Date Time Provider Department 05/30/25 8:15 AM FEDERICO AMBRIZ PTWS Date Time Provider Department Center 05/30/2025 8:15 AM [id number], SEAN PTWS Sanjuana Galeas Reason for Visit: PT Progress Note [1596] Primary Visit Diagnosis:Plantar fasciitis [M72.2] Other Visit Diagnosis:Pain of left heel [M79.672] Allergies As of Date: 05/30/2025 Noted Allergy Reaction LATEX 04/30/2016 4 - Hives 9 - Itching PENICILLINS 09/06/2012 16 - Unknown Date Reviewed: 04/30/2025 Reviewed by: Piper Williamson, NATHALIE - Fully Assessed Prescriptions as of 05/31/2025 [...] - Blood-Glucose Meter 1 Units once daily. Candy Wrapping Machine Operator: Addendum Therapy (PT/OT/Speech/Resp) ID: [id number] 05/30/2025 8:48 AM Author: FEDERICO AMBRIZ Signed by FEDERICO AMBRIZ PT on 05/30/2025 at 8:48 AM * * * This document replaces document [id number] * * * Document text: Program_ID:[id number] Access Code: [email or web address] URL: [email or web address] iHigh/ Date: 05-30-2025 Prepared By: Federico Ambriz Program [...] 3 sets - 10 reps -- Normal [facility] THERAPY NTon 05-30-2025 THERAPY NT HNO ID: [id number] Author: FEDERCIO AMBRIZ PT Service: ? Author Type: Physical Therapist Type: Therapy (PT/OT/Speech/Resp) Filed: 05/30/2025 08:48 Note Text: Program_ID:[id number] Access Code: [email or web address] URL: [email or web address] iHigh/ Date: 05-30-2025 Prepared By: Federico Ambriz Program [...] - 3 sets - 10 reps Normal [facility] CNCOon 05-15-2025 CNCO Letter Text Normal [facility] CNOVon 04-30-2025 CNOV Office Visit (PODIWS ) PATT CRANE ([id number]) 1980 F Date Time Provider Department 04/30/25 3:30 PM EMILIA GRIFFITHS PODIWS During your [...] out walking a long time. EBENEZER 03/26/25 TestEmilia mariscal 04/30/2025 3:47 PM Signed What is Plantar [...] time on their feet, such as nurses, vp publisher development/waiters, and mail carriers, often experience plantar fasciitis. [...] after 2-3 (more content not included)... Normal [facility] [id number] 04-11-2025 [id number] O ID: [id number] Author: FEDERICO AMBRIZ PT Service: ? Author Type: Physical Therapist Type: [id number] Filed: 04/11/2025 13:00 Note Text: [facility] Physical Therapy Plan of Care Certification Patient Name: Patt Crane : 1980 [facility] #: [id number] Date: 04/11/2025 To: Emilia Griffiths DPM From Therapist: Federico Ambriz PT RE: Patient Certification/ Recertification Your review, approval and electronic signature are required in order to comply with Payor: [facility] MEDICAID / Plan: [facility] MEDICAID / Product Type: Medicaid / regulations. [...] increase T-score by a minimum 5 points. [place] in home exercise program. Patient will decrease [...] Planned: 6 Planned Treatment Interventions: Therapeutic exercise (37146), Neuromuscular re-education (89844), Manual therapy (17741), Therapeutic activities (54280), Self-long term management (97376), Gait Training (60235), Patient/Family/Caregiv er Education, Body Mechanics Training PLAN [...] have reviewed the treatment plan for Patt Crane CC# [id number] for the period of 04/11/25 -- 05/23/25, established on 04/11/2025. Signature certifies the need for therapy services. Normal [facility] CNTHERAPYon 04-11-2025 CNTHERAPY OT/PT/Speech Visit (PTWS) PATT CRANE ([id number]) 1980 F Date Time Provider Department 04/11/25 11:15 AM FEDERICO AMBRIZ PTHIEU Date Time Provider Department Center 04/11/2025 11:15 AM [id number], SEAN PTHIEU Galeas Reason for Visit: PT Eval [747] Visit Diagnoses:Pain of left heel [M79.672] Plantar fasciitis [M72.2] Allergies As of Date: 04/11/2025 Noted Allergy Reaction LATEX 04/30/2016 4 - Hives 9 - Itching PENICILLINS 09/06/2012 16 - Unknown Date Reviewed: 04/09/2025 Reviewed by: Garry Rodriguez APRN.JAVA DEVELOPER - Fully Assessed Prescriptions as of 04/11/2025 [...] - Blood-Glucose Meter 1 Units once daily. Candy Wrapping Machine Operator: Addendum Therapy (PT/OT/Speech/Resp) ID: [id number] 04/11/2025 11:45 AM Author: FEDERICO AMBRIZ Signed by FEDERICO AMBRIZ PT on 04/11/2025 at 11:45 AM * * * This document replaces document [id number] * * * Document text: Program_ID:[id number] Access Code: [email or web address] URL: [email or web address] Date: 04-11-2025 Prepared By: Federico Ambriz Program [...] 3 sets - 20 reps -- Normal [facility] THERAPY NTon 04-11-2025 THERAPY NT HNO ID: [id number] Author: FEDERICO AMBRIZ PT Service: ? Author Type: Physical Therapist Type: Therapy (PT/OT/Speech/Resp) Filed: 04/11/2025 11:45 Note Text: Program_ID:[id number] Access Code: [email or web address] URL: [email or web address] Date: 04-11-2025 Prepared By: Federico Ambriz Program [...] - 3 sets - 20 reps Normal [facility] CNOVon 04-09-2025 CNOV Office Visit (AGFAMPLE) PATT CRANE ([id number]) 1980 F Date Time Provider Department 04/09/25 3:40 PM GARRY RODRIGUEZ During your visit today, we recorded the following information about you: Temperature Pulse Blood pressure Weight 98 degrees 103/minute 188/98 92.1 kg Height 1.6 m Garry Rodriguez APRN.JAVA DEVELOPER 04/09/2025 4:17 PM Signed Subjective The patient consented to the use of The Guild software for draft documentation of the visit consistent with [facility]?s Notice of Privacy Practices. HPI Patt [...] issues. Patt's Jardiance is prescribed by her water meter mechanic, Keenan JARVIS, due to her history of cardiomyopathy, CVA, and NSTEMI. Her most recent visit with cardiology was on December 13, 2024. She experienced an NSTEMI in July 2023, with a cardiac catheterization revealing no obstructive stenosis and an ejection fraction of 20%. The MS was likely secondary to demand ischemia from [...] for sh (more content not included)... Normal [facility] HEMOGLOBIN A1C (POC)on 04-09 HbA1c (Bld) [Mass fraction] 10.6 % Abnormal 4.3 - 5.6 % [facility] Comment on above: Location:[facility], [address] [place] [address], [address] Point of care (POC) Hemoglobin A1c (HGBA1C) [...] specific diabetes management situations: The POC device plate cutter provides a normal range of 4.2% to 6.5% for the HGBA1C POC test. However, the [place] Diabetes Association guidelines indicate that patients [...] Interpretation and review of laboratory results Abnormal [facility] CNCOon 03-26-2025 CNCO Letter Text Normal [facility] CNOVon 03-26-2025 CNOV Office Visit (PODIWS ) PATT CRANE ([id number]) 1980 F Date Time Provider Department 03/26/25 [...] Pain, Established Patient, Follow Up, Numbness RONNY Espinosa Matthew 03/26/2025 3:29 PM Addendum What is Plantar [...] time on their feet, such as nurses, vp publisher development/waiters, and mail carriers, often experience plantar fasciitis. [...] local anesthe (more content not included)... Normal [facility] CBC panel Auto (Bld)on 03-22 Erythrocyte distribution width (RBC) [Ratio] 14.7 % Normal 11.5-15.0 [facility] Comment on above: Order Comment: Speci men Type: BLOOD SPECIMENOrdering Facility: [facility] Address: [address] [place] [address] Performed By: #### 5 8410-2 ####[facility] CENTERJULIENNEJose Miguel [id number] [address] OF [facility] Hematocrit (Bld) [Volume fraction] 44.0 % Normal 36.0-46.0 [facility] Comment on above: Order Comment: Speci men Type: BLOOD SPECIMENOrdering Facility: [facility] Address: [address] [place], [place] [address] Performed By: #### 5 8410-2 ####[facility] CENTERJACE [id number] [place] [address] [place] Hemoglobin (Bld) [Mass/Vol] 14.1 g/dL Normal 11.5-15.5 [facility] Comment on above: Order Comment: Speci men Type: BLOOD SPECIMENOrdering Facility: [facility] Address: [address] [place] [address] Performed By: #### 5 8410-2 ####[facility] CENTERJULIENNELIA [id number] [place] [address] [place] MCH (RBC) [Entitic mass] 26.6 pg Normal 26.0-34.0 [facility] Comment on above: Order Comment: Speci men Type: BLOOD SPECIMENOrdering Facility: [facility] Address: [address] [place] [address] Performed By: #### 5 8410-2 ####[facility] CENTERJULIENNELIA [id number] [place] [address] [place] MCHC (RBC) [Mass/Vol] 32.0 g/dL Normal 30.5-36.0 [facility] Comment on above: Order Comment: Speci men Type: BLOOD SPECIMENOrdering Facility: [facility] Address: [address] [place] [address] Performed By: #### 5 8410-2 ####[facility] CENTERNCLIA [id number] [place] [address] [place] MCV (RBC) [Entitic vol] 83.0 fL Normal 80.0-100.0 [facility] Comment on above: Order Comment: Speci men Type: BLOOD SPECIMENOrdering Facility: [facility] Address: [address] [place] [address] Performed By: #### 5 8410-2 ####[facility] CENTERNCLIA [id number] [place] [address] [place] Nucleated RBC (Bld) [#/Vol] 10*3/uL Normal <0.01 [facility] Comment on above: Order Comment: Speci men Type: BLOOD SPECIMENOrdering Facility: [facility] Address: [address] [place] [address] Performed By: #### 5 8410-2 ####[facility] SANJUANA KEITHNCCAMERON [id number] [place] [address] [place] Platelet mean volume (Bld) [Entitic vol] 9.5 fL Normal 9.0-12.7 [facility] Comment on above: Order Comment: Speci men Type: BLOOD SPECIMENOrdering Facility: [facility] Address: [address] [place] [address] Performed By: #### 5 8410-2 ####[facility] CENTERNCTRAN [id number] [place] [address] [place] Platelets (Bld) [#/Vol] 383 10*3/uL Normal 150-400 [facility] Comment on above: Order Comment: Speci men Type: BLOOD SPECIMENOrdering Facility: [facility] Address: [address] [place] [address] Performed By: #### 5 8410-2 ####[facility] CENTERNCLIA [id number] [place] [address] [place] RBC (Bld) [#/Vol] 5.30 10*6/uL High 3.90-5.20 [facility] Comment on above: Order Comment: Speci men Type: BLOOD SPECIMENOrdering Facility: [facility] Address: [address] [place] [address] Performed By: #### 5 8410-2 ####[facility] CENTERNCLIA [id number] [place] [address] [place] WBC (Bld) [#/Vol] 6.05 10*3/uL Normal 3.70-11.00 [facility] Comment on above: Order Comment: Speci men Type: BLOOD SPECIMENOrdering Facility: [facility] Address: [address] [place] [address] Performed By: #### 5 8410-2 ####[facility] KEITHNCLIA [id number] [place] [address] [place] Comprehensive metabolic 2000 panelon 03-22-2025 Albumin [Mass/Vol] 4.3 g/dL Normal 3.9-4.9 [facility] Comment on above: Order Comment: Speci men Type: BLOOD SPECIMENOrdering Facility: [facility] Address: [address] [place] [address] Performed By: #### 2 777-1, 09780-4, 58419-0 ####[facility] FRANCISCOSavannahNCTRANA [id number] [place] [address] [place] ALP [Catalytic activity/Vol] 90 U/L Normal 34-123 [facility] Comment on above: Order Comment: Speci men Type: BLOOD SPECIMENOrdering Facility: [facility] Address: [address] [place] [address] Performed By: #### 2 777-1, 90278-1, 09076-1 ####[facility] FRANCISCOCOLOMAJULIENNETRANA [id number] [place] [address] [place] ALT [Catalytic activity/Vol] 12 U/L Normal 7-38 [facility] Comment on above: Order Comment: Speci men Type: BLOOD SPECIMENOrdering Facility: [facility] Address: [address] [place] [address] Performed By: #### 2 777-1, 39423-9, 55413-5 ####[facility] FRANCISCOCOLOMANCLIA [id number] [place] [address] [place] Anion gap [Moles/Vol] 8 mmol/L Normal 8-15 [facility] Comment on above: Order Comment: Speci men Type: BLOOD SPECIMENOrdering Facility: [facility] Address: [address] [place] [address] Performed By: #### 2 777-1, 90429-8, 08130-7 ####[facility] KEITHNCTRANA [id number] [place] [address] [place] AST [Catalytic activity/Vol] 10 U/L Low 13-35 [facility] Comment on above: Order Comment: Speci men Type: BLOOD SPECIMENOrdering Facility: [facility] Address: [address] [place] [address] Performed By: #### 2 777-1, 42211-5, 26021-5 ####[facility] FRANCISCOSavannahNCTRANA [id number] [place] [address] [place] Bilirubin [Mass/Vol] 0.4 mg/dL Normal 0.2-1.3 [facility] Comment on above: Order Comment: Speci men Type: BLOOD SPECIMENOrdering Facility: [facility] Address: [address] [place], [place] [address] Performed By: #### 2 777-1, 86211-2, 00509-4 ####[facility] FRANCISCOCOLOMANCTRANA [id number] [place] [address] [place] Calcium [Mass/Vol] 9.5 mg/dL Normal 8.5-10.2 [facility] Comment on above: Order Comment: Speci men Type: BLOOD SPECIMENOrdering Facility: [facility] Address: [address] [place] [address] Performed By: #### 2 777-1, 22340-8, 29595-9 ####[facility] CENTERNCLIA [id number] [place] [address] [place] Chloride [Moles/Vol] 102 mmol/L Normal 98-107 [facility] Comment on above: Order Comment: Speci men Type: BLOOD SPECIMENOrdering Facility: [facility] Address: [address] [place] [address] Performed By: #### 2 777-1, 18633-7, 81851-2 ####[facility] FRANCISCOCOLOMANCCAMERON [id number] [place] [address] [place] CO2 [Moles/Vol] 26 mmol/L Normal 22-30 [facility] Comment on above: Order Comment: Speci men Type: BLOOD SPECIMENOrdering Facility: [facility] Address: [address] [place] [address] Performed By: #### 2 777-1, 22522-4, 70095-9 ####[facility] CENTERNCLIA [id number] [place] [address] [place] Creatinine [Mass/Vol] 0.83 mg/dL Normal 0.58-0.96 [facility] Comment on above: Order Comment: Speci men Type: BLOOD SPECIMENOrdering Facility: [facility] Address: [address] [place] [address] Performed By: #### 2 777-1, 42327-5, 12031-7 ####[facility] [id number] [address] [place] Creatinine and Glomerular filtration rate.predicted panel (S/P/Bld) 90 mL/min/1.73m??? Normal >=60 [facility] Comment on above: Order Comment: Speci men Type: BLOOD SPECIMENOrdering Facility: [facility] Address: [address] [place] [address] Result Comment: Wilma mated Glomerular Filtration Rate [...] actual GFR. Performed By: #### 2 777-1, 43413-3, 14667-8 ####[facility] PENSACOLATOWNCLIA [id number] [place] [address] [place] Glucose [Mass/Vol] 207 mg/dL High 74-99 [facility] Comment on above: Order Comment: Speci men Type: BLOOD SPECIMENOrdering Facility: [facility] Address: [address] [place] [address] Result Comment: The [place] Diabetes Association (ADA) provides guidance for [...] Standards of Medical Care in Diabetes 2016, [place] Diabetes Association. Diabetes Care. 2016.39(Suppl 1). Performed By: #### 2 777-1, 93229-5, 78281-6 ####[facility] WESTWNCLIA [id number] [place] [address] [place] Potassium [Moles/Vol] 4.4 mmol/L Normal 3.7-5.1 [facility] Comment on above: Order Comment: Speci men Type: BLOOD SPECIMENOrdering Facility: [facility] Address: [address] [place] [address] Performed By: #### 2 777-1, 81206-8, 87020-5 ####[facility]ENTERNCLIA [id number] [place] [address] [place] Protein [Mass/Vol] 7.9 g/dL Normal 6.3-8.0 [facility] Comment on above: Order Comment: Speci men Type: BLOOD SPECIMENOrdering Facility: [facility] Address: [address] [place], [place] [address] Performed By: #### 2 777-1, 86373-1, 06737-6 ####[facility] WESTWNCLIA [id number] [place] [address] [place] Sodium [Moles/Vol] 136 mmol/L Normal 136-144 [facility] Comment on above: Order Comment: Speci men Type: BLOOD SPECIMENOrdering Facility: [facility] Address: [address] [place] [address] Performed By: #### 2 777-1, 99042-3, 23635-5 ####[facility] [id number] [place] [address] [place] Urea nitrogen [Mass/Vol] 15 mg/dL Normal 7-21 [facility] Comment on above: Order Comment: Speci men Type: BLOOD SPECIMENOrdering Facility: [facility] Address: [address] [place], [place] [address] Performed By: #### 2 777-1, 62654-4, 88657-0 ####[facility] [id number] [place] [address] [place] Lipid 1996 panelon 5 Cholesterol [Mass/Vol] 144 mg/dL Normal <200 [facility] Comment on above: Order Comment: Speci men Type: BLOOD SPECIMENOrdering Facility: [facility] Address: [address] [place] [address] Result Comment: <200 mg/dL, Desirable 200-239 mg/dL, Borderline high >239 mg/dL, High Performed By: #### 2 4331-1 ####[facility] LABCLIA [id number] [address] [address] [place] AMERICANAVAL HOSPITAL PENSACOLATOWNCLIA [id number] [place] [address] [place] Cholesterol in HDL [Mass/Vol] 60 mg/dL Normal >39 [facility] Comment on above: Order Comment: Mikki frazier Type: BLOOD SPECIMENOrdering Facility: [facility] Address: [address] [place] [address] Result Comment: 40-5 9 mg/dL, Acceptable >59 mg/dL, High: Negative risk factor for coronary heart disease <40 mg/dL, Low: Positive risk factor for coronary heart disease Performed By: #### 2 4331-1 ####[facility] LABCLIA [id number] [id number] [place] [address] [place] Cholesterol in LDL [Mass/Vol] 70 mg/dL Normal <100 [facility] Comment on above: Order Comment: Sebasbrittaney frazier Type: BLOOD SPECIMENOrdering Facility: [facility] Address: [address] [place] [address] Result Comment: <100 mg/dL, Optimal 100-129 mg/dL, Near optimal/above optimal 130-159 mg/dL, Borderline high 160-189 mg/dL, High >189 mg/dL, Very high Secondary prevention optimal LDL Cholesterol levels are recommended to be <70 mg/dL LDL cholesterol is calculated using the Padgett-NIH equation. Performed By: #### 2 4331-1 ####[facility] LABCLIA [id number] [address] [id number] [place] [address] [place] Cholesterol in LDL/Cholesterol in HDL [Mass ratio] 1.17 {ratio} Normal <2.54 [facility] Comment on above: Order Comment: Mikki frazier Type: BLOOD SPECIMENOrdering Facility: [facility] Address: [address] [place] [address] Result Comment: Refstacie levice: 1. National Cholesterol Education Program ATP III Guideline At-A-Glance Quick Desk Reference: National Heart, Lung, and Blood Clark. National Institutes of Health. 2001: NIH Publication No. 01-3305. 2. An International Atherosclerosis Society position paper: global recommendations for the management of dyslipidemia: executive summary, Atherosclerosis. 2014: 232(2):410-413. Performed By: #### 2 4331-1 ####[facility] LABCLIA [id number] [address] [id number] [place] [address] [place] Cholesterol in VLDL [Mass/Vol] 10 mg/dL Normal <30 [facility] Comment on above: Order Comment: Speci men Type: BLOOD SPECIMENOrdering Facility: [facility] Address: [address] [place] [address] Performed By: #### 2 4331-1 ####[facility] LABCLIA [id number] [id number] [place] [address] [place] Cholesterol non HDL [Mass/Vol] 84 mg/dL Normal <130 [facility] Comment on above: Order Comment: Sebasi men Type: BLOOD SPECIMENOrdering Facility: [facility] Address: [address] [place] [address] Result Comment: <130 mg/dL, Optimal 130-159 mg/dL, Near optimal/above optimal 160-189 mg/dL, Borderline high 190-219 mg/dL, High >219 mg/dL, Very high Secondary prevention optimal non HDL Cholesterol levels are recommended to be <100 mg/dL Performed By: #### 2 4331-1 ####[facility] LABCLIA [id number] [address] [id number] [place] [address] [place] Cholesterol.total/Cynthia sterol in HDL [Mass ratio] 2.40 {ratio} Normal <5.10 [facility] Comment on above: Order Comment: Speci men Type: BLOOD SPECIMENOrdering Facility: [facility] Address: [address] [place] [address] Performed By: #### 2 4331-1 ####[facility] LABCLIA [id number] [address] [address] [facility] [id number] [place] [address] [place] FASTING TIME 9 hrs Normal [facility] Comment on above: Order Comment: Speci men Type: BLOOD SPECIMENOrdering Facility: [facility] Address: [address] [place] [address] Performed By: #### 2 4331-1 ####[facility] LABCLIA [id number] [place] [id number] [facility] [id number] [place] [address] [place] Triglyceride [Mass/Vol] 70 mg/dL Normal <150 [facility] Comment on above: Order Comment: Speci men Type: BLOOD SPECIMENOrdering Facility: [facility] Address: [address] [place] [address] Result Comment: <150 mg/dL, Normal 150-199 mg/dL, Borderline high 200-499 mg/dL, High >499 mg/dL, Very high Performed By: #### 2 4331-1 ####[facility] LABCLIA [id number] [place] [id number] [facility] [id number] [place] [address] [place] Magnesium SerPl-mCncon 03-22 Magnesium [Mass/Vol] 1.9 mg/dL Normal 1.7-2.3 [facility] Comment on above: Order Comment: Speci men Type: BLOOD SPECIMENOrdering Facility: [facility] Address: [address] [place] [address] [place] [address] Performed By: #### 2 777-1, 54976-2, 16600-8 ####[facility] SANJUANA HOPSONWNCLIA [id number] [place] [address] [place] Phosphate SerPl-mCncon 03-22 Phosphate [Mass/Vol] 3.3 mg/dL Normal 2.7-4.8 [facility] Comment on above: Order Comment: Speci men Type: BLOOD SPECIMENOrdering Facility: [facility] Address: [address] [place] [address] Performed By: #### 2 777-1, 17097-3, 00987-7 ####[facility] SANJUANA HOPSONWNCLIA [id number] [address] [place] CNOVon 01-09-2025 CNOV Office Visit (PODIWS ) PATT CRANE ([id number]) 1980 F Date Time Provider Department 01/09/25 3:45 PM EMILIA GRIFFITHS PODIWS During your visit [...] 01/12/2024 9.4 08/20/2023 10.7 PCP: Garry Rodriguez APRN.JAVA DEVELOPER PAST MEDICAL HISTORY Diagnosis Date cardiomyopathy, 09/05/2012 [...] digits Neur (more content not included)... Normal [facility] .Auto Diffon 12-13-2024 Basophil, Absolute 0.0 10 3/mcL Normal 0.0-0.2 [facility] Comment on above: Performed By: #### A DIFF, CBC, HCGQ, ANEU #### [address] [place], [place] [address] Basophils/100 WBC (Bld) 0.7 % Normal 0.0-2.5 A [facility] Comment on above: Performed By: #### A DIFF, CBC, HCGQ, ANEU #### [address] [place], [place] [address] Eosinophil, Absolute 0.2 10 3/mcL Normal 0.0-0.7 [facility] Comment on above: Performed By: #### A DIFF, CBC, HCGQ, ANEU #### [address] [address] Eosinophils/100 WBC (Bld) 3.2 % Normal 0.0-7.0 [facility] Comment on above: Performed By: #### A DIFF, CBC, HCGQ, ANEU #### [address] [address] Lymphocyte, Absolute 1.6 10 3/mcL Normal 0.9-4.3 [facility] Comment on above: Performed By: #### A DIFF, CBC, HCGQ, ANEU #### [address] [address] Lymphocytes/100 WBC (Bld) 32.0 % Normal 20.0-40.0 [facility] Comment on above: Performed By: #### A DIFF, CBC, HCGQ, ANEU #### [address] [address] Monocyte, Absolute 0.5 10 3/mcL Normal 0.1-1.4 [facility] Comment on above: Performed By: #### A DIFF, CBC, HCGQ, ANEU #### [address] [address] Monocytes/100 WBC (Bld) 10.3 % Normal 2.0-13.[address] [facility] Comment on above: Performed By: #### A DIFF, CBC, HCGQ, ANEU #### [address] [address] Neutrophils/100 WBC (Bld) 53.8 % Normal 50.0-75.0 [facility] Comment on above: Performed By: #### A DIFF, CBC, HCGQ, ANEU #### [address] [address] .NEUABSon 12-13-2024 Neutrophil, Absolute 2.7 10 3/mcL Normal 2.3-8.1 [facility] Comment on above: Performed By: #### A DIFF, CBC, HCGQ, ANEU #### [place] [id number] CBCon 12-13-2024 Erythrocyte distribution width (RBC) [Ratio] 15.2 % Normal 11.5-15.5 [facility] Comment on above: Performed By: #### A DIFF, CBC, HCGQ, ANEU #### [place] [address] Hematocrit (Bld) [Volume fraction] 41.1 % Normal 34.0-46.0 [facility] Comment on above: Performed By: #### A DIFF, CBC, HCGQ, ANEU #### [place] [address] Hgb 13.4 G/dL Normal 12.0-16.0 [facility] Comment on above: Performed By: #### A DIFF, CBC, HCGQ, ANEU #### [place] [address] MCH (RBC) [Entitic mass] 26.9 pg Low 27.0-33.0 [facility] Comment on above: Performed By: #### A DIFF, CBC, HCGQ, ANEU #### [place] [address] MCHC 32.6 G/dL Normal 32.0-36.0 [facility] Comment on above: Performed By: #### A DIFF, CBC, HCGQ, ANEU #### [place] [address] MCV (RBC) [Entitic vol] 82.7 fL Normal 80.0-99.[address] [facility] Comment on above: Performed By: #### A DIFF, CBC, HCGQ, ANEU #### [place] [address] Platelet 355 10 3/mcL Normal 150-450 [facility] Comment on above: Performed By: #### A DIFF, CBC, HCGQ, ANEU #### [place] [address] Platelet mean volume (Bld) [Entitic vol] 7.7 fL Normal 6.6-10.5 [facility] Comment on above: Performed By: #### A DIFF, CBC, HCGQ, ANEU #### [facility] [address] [place], [place] [address] RBC 4.97 10 6/mcL Normal 4.10-5.30 [facility] Comment on above: Performed By: #### A DIFF, CBC, HCGQ, ANEU #### [facility] [address] [place], [place] [address] WBC 5.0 10 3/mcL Normal 4.5-10.8 [facility] Comment on above: Performed By: #### A DIFF, CBC, HCGQ, ANEU #### [facility] [address] [place], [place] [address] Cardiology Visit Reporton Cardiology Visit Report [facility] [address] [place] [address] OFFICE VISIT Date of Service: 12/13/24 MR#: [id number] Acct: [id number] Name: PATT CRANE Rep #: [id number] : 1980 Provider: ODALYS venegas Age/Sex: 44/F [place] [facility] [place] Status: Signed HPI HPI History of Present [...] BP Intake Visit Reasons: 7 M FU Plant Propagator Required: No Is patient in pain?: No [...] tablet 25 mg PO BID #180 tabs 10/16/24 12/13/24 Rx empagliflozin 25 mg tablet 25 mg [...] hearing nona (more content not included)... Normal [facility] HCGQon 12-13-2024 hCG, quantitative 8.4 mIU/mL Normal [facility] Comment on above: Result Comment: HCG [...] #### A DIFF, CBC, HCGQ, ANEU #### [address] [place] [address] LABORATORYOrdered By: SYSTEM SYSTEM on 12-13-2024 Basophils [...] 4.5 - 10.8 10^3/mcL AO Workflow SS Micheline 12-12-2024 WILL Telephone (AGFAMPLE) PATT CRANE ([id number]) 1980 F Date Time Provider Department 12/12/24 GARRY RODRIGUEZ During your visit today, we recorded the following information about you: Akshat Quesada MA 12/12/2024 7:18 AM Signed Received fax that ozempic was denied. Placed in red folder to review. JOHN Douglas Kristin C, APRN.[place] 12/12/2024 5:54 PM Signed I called her [...] doing in about 3 months. Garry Rodriguez APRN.[place] TerryosmanAkshat MA 12/13/2024 7:18 AM Signed Vm full. [...] Encounter Status:Closed by AKSHAT QUESADA on 12/12/24 [facility] Micheline 12-11-2024 WILL Telephone (Deadeye MarksmanshipCELIAITZEL) PATT CRANE ([id number]) 1980 F Date Time Provider Department 12/11/24 GARRY RODRIGUEZ During your visit today, we recorded the following information about you: Akshat Quesada MA 12/11/2024 7:24 AM Signed ----- Message from Garry Rodriguez APRN.JAVA DEVELOPER sent at 12/10/2024 9:25 AM EST ----- [...] Status:Closed by CARMEL DENNISON on 12/11/24 Normal [facility] XR Foot - left AP and Latera l and obliqueon 12-08-2024 IMPRESSION: No acute radiographic abnormality. Clinical Supervisor: HODA Transcribe Date/Time: Dec 08 2024 11:36A Dictated by : YUAN ROBLES MD This examination was interpreted and the report reviewed and electronically signed by: YUAN ROBLES MD on Dec 08 2024 11:37AM [facility] * * *Final Report* * [...] spur. This is probably not clinically significant. [facility] Provider, Asia Wellington - 12/08/2024 * * *Final Report* * [...] significant. IMPRESSION IMPRESSION: No acute radiographic abnormality. Clinical Supervisor: HODA Transcribe Date/Time: Dec 08 2024 11:36A Dictated by : YUAN ROBLES MD This examination was interpreted and the report reviewed and electronically signed by: YUAN ROBLES MD on Dec 08 2024 11:37AM EST [facility] XR Foot - left AP and Latera l and obliqueOrdered By: Ccf Provider on 12-08-2024 [facility]heline [facility] ([id number]) 1980 F Date Time Provider Department 12/07/24 GARRY RODRIGUEZ During your visit today, we recorded the following information about you: Akshat Quesada MA 12/07/2024 7:20 AM Signed Received fax from [employer] stating caresource denied ozempic. Please advise. JOHN Douglas Mary, MA 12/08/2024 5:17 PM Signed Received fax from medicaid for ozempic to be filled out. Placed in red folder. Akshat OrrbinaJOHN brewer Garry Rodriguez APRN.[place] 12/11/2024 10:35 AM Signed Thank you, form is completed and signed. Garry Rodriguez APRN.[place] TerryAkshat brewer JOHN 12/11/2024 10:48 AM Signed Faxed. Placed in immediate scanning. Akshat Orrbinaosman JOHN Allergies As of Date: 12/07/2024 Noted Allergy [...] Status:Closed by AKSHAT QUESADA on 12/07/24 Normal [facility] ALBUMIN/CREATININE RATIO, UR INEon 12-06-2024 Albumin Unsp time DL <= 20 mg/L (U) [Mass/Time] mg/L mg/L [facility] Albumin/Creatinine (U) [Mass ratio] mg/g NINF - 30 mg/g [facility] Comment on above: Adult Male and [...] [Mass/Vol] 64.8 mg/dL 42.2 - 237.9 mg/dL [facility] Albumin Unsp time DL <= 20 mg/L (U) [Mass/Time] <12.0 Normal [facility] Comment on above: Order Comment: Speci men Type: URINE SPECIMEN Ordering Facility: [facility] Address: [address] [place] [address] Performed By: #### U ACR #### [facility] CLIA [id number] [address] [place] [address] [place] Albumin/Creatinine (U) [Mass ratio] <19 Normal <30 [facility] Comment on above: Order Comment: Speci men Type: URINE SPECIMEN Ordering Facility: [facility] Address: [address] [place], [place] [address] [address] Result Comment: Adul t Male and Female Nephrotic Criteria: <30 mg/g is considered normal to mildly increased 30-300 mg/g is considered moderately increased >300 mg/g is considered severely increased KDIGO. (2013). KDIGO 2012 Clinical Practice Guideline for the Evaluation and Management of Chronic Kidney Disease. Official Journal of the International Society of Nephrology, 3(1), 1-150. Performed By: #### U ACR #### [facility] CLIA [id number] [address] STATES OF [facility] Creatinine (U) [Mass/Vol] 64.8 mg/dL Normal 42.2-237.9 [facility] Comment on above: Order Comment: Speci men Type: URINE SPECIMEN Ordering Facility: [facility] Address: [address] [place] [address] Performed By: #### U ACR #### [facility] CLIA [id number] [address] [place] CNOVon 12-06-2024 CNOV Office Visit ([place]) PATT CRANE ([id number]) 1980 F Date Time Provider Department 12/06/24 1:20 PM GARRY RODRIGUEZ During your visit today, we recorded the following information about you: Temperature Pulse Respiration Blood pressure 98 degrees 56/minute 16/minute 122/62 Weight Height 91.2 kg 1.6 m Garry Rodriguez APRN.JAVA DEVELOPER 12/11/2024 10:35 AM Signed Subjective Patt Crane [...] screening - Dr Briones is her OBGYN [place] Colorectal cancer screening - na Osteoporosis screening [...] Jardiance for cardiomyopathy, she continues care with [facility] cardiology - Dr Blanco Has history of [...] or abdominal (more content not included)... Normal [facility] HEMOGLOBIN A1C (POC)on 12-06 HbA1c (Bld) [Mass fraction] 8.9 % Abnormal 4.3 - 5.6 % [facility] Comment on above: Location:[facility], [address] [place] [address], [address] Point of care (POC) Hemoglobin A1c (HGBA1C) [...] specific diabetes management situations: The POC device plate cutter provides a normal range of 4.2% to 6.5% for the HGBA1C POC test. However, the [place] Diabetes [employer] guidelines indicate that patients [...] Interpretation and review of laboratory results Abnormal [facility] XR FOOT 3V AP/LAT/OBL LTon 0 12-06-2024 [...] clinically significant. IMPRESSION: No acute radiographic abnormality. Clinical Supervisor: PSCB Transcribe Date/Time: Dec 08 2024 11:36A Dictated by : YUAN ROBLES MD This examination was interpreted and the report reviewed and electronically signed by: YUAN ROBLES MD on Dec 08 2024 11:37AM EST [id number] Normal [facility] XR Foot - left AP and Latera l and obliqueon 12-06-2024 Radiology Study observation (narrative) Sari robledo [facility] CNCOon 11-27-2024 CNCO Letter Text Normal [facility] HCGQon 11-24-2024 hCG, quantitative 4613.6 mIU/mL Normal [facility] Comment on above: Result Comment: HCG [...] - 100,000 mIU/mL Performed By: #### H CGQ, PREGS #### [place] [address] LABORATORYOrdered By: Judith Dickson on 11-24-2024 HCG [...] mIU/mL PREGSon 11-24-2024 test (s) Positive Normal [facility] Comment on above: Order Comment: +VE U PT at home. Performed By: #### H CGQ, PREGS #### [address] [address] test (s) int Detected Invalid Interpretation Code [facility] Comment on above: Order Comment: +VE U PT at home. Performed By: #### H CGQ, PREGS #### [address] [place], [place] [address] CT CHEST WO IVCONon 11-16-20 CT CHEST WO IVCON * * *Final Report* * * DATE OF EXAM: Nov 16 2024 3:49PM [facility] 0541 - CT CHEST WO IVCON [...] the chest. Sequela of remote granulomatous disease. Clinical Supervisor: HODA Transcribe Date/Time: Nov 20 2024 3:56P Dictated by : CAROL CALLAWAY MD This examination was interpreted and the report reviewed and electronically signed by: CAROL CALLAWAY MD on Nov 20 2024 4:01PM EST [id number] Normal [facility] 10-09-2024 WILL Telephone ([place]) PATT CRANE ([id number]) 1980 F Date Time Provider Department 10/09/24 GARRY RODRIGUEZ During your visit today, we recorded the following information about you: Carmel Dennison MA 10/09/2024 7:42 AM Signed ----- Message from Pilar Sultana MA sent at 10/07/2023 10:14 AM EST ----- Patient due for [address] chest to monitor small lung nodule. JOHN Pritchett Kristin C, APRN.[place] 10/09/2024 2:23 PM Signed Thank you. Please see orders. Garry Rodriguez APRN.Akshat Laws MA 10/09/2024 2:36 PM Signed Patient aware. Akshat Quesada MA Allergies As of Date: 10/09/2024 Noted Allergy Reaction LATEX 04/30/2016 4 - Hives 9 - Itching PENICILLINS 09/06/2012 16 - Unknown Date Reviewed: 01/15/2024 Reviewed by: Garry Rodriguez APRN.[place] - Fully Assessed Reason for Visit: Orders [681] Primary Visit Diagnosis:Lung nodule [R91.1] Order(s):CT CHEST WO IMMANUELON [[id number]] Order #: [id number] FUTURE Prescriptions as of 10/09/2024 - dulaglutide [...] Status:Closed by AKSHAT QUESADA on 10/09/24 Normal [facility] 05-10-2024 Hematocrit (Bld) [Volume fraction] 41.4 % Normal 37.0-47.0 [facility] ([place] Comment on above: Performed By: #### H H #### [address] [place], [place] [address] Hgb 13.5 G/dL Normal 12.0-16.0 [facility] [place] Comment on above: Performed By: #### H H #### [address] [place], [place] [address] LABORATORYOrdered By: SYSTEM SYSTEM on 05-10-2024 Hematocrit [...] 02/16/2024 3:21:09 PM Ordering Provider: KRISTYN Dexter [facility] ([place] HEMOGLOBIN A1C (POC)on 01-12 HbA1c (Bld) [Mass fraction] 9.4 % Abnormal 4.3 - 5.6 % [facility] Machine Maintenance Supervisor Cytology Reporton 2022 Machine Maintenance Supervisor Cytology Report . Pathology Reports Accession: Collected Date/Time: Received Date/Time: Pathologist: [id number] 10/27/2023 10:33 EST 10/27/2023 18:00 EST Machine Maintenance Supervisor Cytology Report SPECIMEN: Specimen Description: Liquid Prep [...] and evaluated with the assistance of the UpRacePrep Test Imaging System. Pathology Reports Accession: Collected Date/Time: Received Date/Time: Pathologist: [id number] 10/27/2023 10:33 EST 10/27/2023 18:00 EST Electronically Signed by Pathology report verified by [facility] Screened by: [place] Electronically signed by Julisa CARDONA (ASCP) Sign-Out Date: 11/01/2023 15:52 Performing Lab: [facility], [address] [place] [address] Pathology Dept Disclaimer The Pap test is a screening test for cervical cancer. As evidenced by published data, it is subject to both inherent false negative and false positive results. Your patient's results should be interpreted in context with pertinent clinical history including gynecological examination. Normal [facility] ([place] HPVon 11-01-2023 HPV Interp Normal See Interp HPVN [facility] ([place] Comment on above: Order Comment: Order placed by AP_HPV_ORDER rule from [id number] Result Comment: High Risk HPV Typing: NEGATIVE [...] and sufficient DNA to be detected. See Interp HPVN Performed By: #### H PV #### [address] [address] HPV Source Cervix Normal [facility] ([place] Comment on above: Order Comment: Order placed by AP_HPV_ORDER rule from [id number] Performed By: #### H PV #### [address] [address] Basophil percentageOrdered B y: Alexia Stacy on 10-12-2023 Chloride [Moles/Vol] 106 mmol/L 98-107 [facility] Glucose [Mass/Vol] 262 mg/dL 74-[address] [facility] Comment on above: Glucose result great er than or equal to 200 mg/dLsuggests DIABETES MELLITUS per A.D.A. criteria. Potassium [Moles/Vol] 3.9 mmol/L 3.5-5.1 [facility] Sodium [Moles/Vol] 138 mmol/L 136-[address] [facility] Laboratory - Chemistry and C hemistry - challengeOrdered By: Alexia Stacy on 10-12-2023 CO2 [Moles/Vol] 27.0 mmol/L 21.0-32.0 [facility] Urea nitrogen/Creatinine [Mass ratio] 12.6 mg/mg 10-20 [facility] No Panel InformationOrdered By: Alexia Stacy on 10-12-2023 Estimated GFR (MDRD) Amer 64 mL/min >60 [facility] Comment on above: GFR Calc Estimated GFR (MDRD) Non-Af Amer 53 mL/min >60 [facility] Comment on above: Non- GFR Calc Serum or plasma calcium lamar urement (mass/volume)Ordered By: Alexia Stacy on 10-12-2023 Calcium [Mass/Vol] 8.8 mg/dL 8.5-10.[address] [facility] Serum or plasma creatinine m easurement (mass/volume)Ordered By: Alexia Stacy on 10-12-2023 Creatinine [Mass/Vol] 1.19 mg/dL 0.55-1.02 [facility] Comment on above: The validity of the calculated GFR & GFRAA in patients over 70 years has not been determined. Clinical correlation is essential. Serum or plasma urea nitroge n measurement (mass/volume)Ordered By: Alexia Stacy on 10-12-2023 Urea nitrogen [Mass/Vol] 15 mg/dL 7-18 [facility] Thin prep Papanicolaou smear with manual screeningOrdered By: Alexia Stacy on 10-12-2023 Thin prep Papanicolaou smear with manual screening 5 5-[address] [facility] [address] ABD/PEL W IVCONon 023 Radiology Result ACTIONABLE Abnormal [facility] Absolute lymphocyte countOrd ered By: Alexia Stacy on 09-21-2023 Lymphocytes Auto (Unsp spec) [#/Vol] 1.27 10*3/uL 0.83-4.51 [facility] Basophil percentageOrdered B y: Alexia Stacy on 09-21-2023 Basophils/100 WBC (Bld) 0.5 % 0-1 [facility] Chloride [Moles/Vol] 108 mmol/L 98-107 [facility] Eosinophils/100 WBC (Bld) 2.7 % 0-5 [facility] Glucose [Mass/Vol] 217 mg/dL 74-[address] [facility] Comment on above: Glucose result great er than or equal to 200 mg/dLsuggests DIABETES MELLITUS per A.D.A. criteria. Neutrophils (Bld) [#/Vol] 3.2 10*3/uL 2.0-7.7 [facility] Neutrophils/100 WBC (Bld) 58.1 % 47-70 [facility] Potassium [Moles/Vol] 3.8 mmol/L 3.5-5.1 [facility] Sodium [Moles/Vol] 139 mmol/L 136-[address] [facility] WBC (Bld) [#/Vol] 5.5 10*3/uL 4.4-11.[address] [facility] Blood erythrocytes count (nu mber/volume)Ordered By: Alexia Stacy on 09-21-2023 RBC (Bld) [#/Vol] 4.80 10*6/uL 4.2-5.4 [facility] Blood hemoglobin measurement (mass/volume)Ordered By: Alexia Stacy on 09-21-2023 Hemoglobin (Bld) [Mass/Vol] 12.0 g/dL 12.0-15.0 [facility] Blood lymphocytes/100 leukoc ytesOrdered By: Alexia Stacy on 09-21-2023 Lymphocytes/100 WBC (Bld) 23.3 % 19-41 [facility] Blood monocytes/100 leukocyt esOrdered By: Alexia Stacy on 09-21-2023 Monocytes/100 WBC (Bld) 13.9 % 0-10 [facility] Blood platelet mean volumeOr dered By: Alexia Stacy on 09-21-2023 Platelet mean volume (Bld) [Entitic vol] 10.3 fL 6.2-12.0 [facility] Determination of erythrocyte mean corpuscular volume (MCV)Ordered By: Alexia Stacy on 09-21-2023 MCV (RBC) [Entitic vol] 82.9 fL 81-99 [facility] Hematocrit Auto (Bld) [Volum e fraction]Ordered By: Alexia Stacy on 09-21-2023 Hematocrit (Bld) [Volume fraction] 39.8 % 37-47 [facility] Laboratory - Chemistry and C hemistry - challengeOrdered By: Alexia Stacy on 09-21-2023 CO2 [Moles/Vol] 24.0 mmol/L 21.0-32.0 [facility] Natriuretic peptide B (Bld) [Mass/Vol] 463.1 pg/mL 0-100 [facility] Urea nitrogen/Creatinine [Mass ratio] 11.0 mg/mg 10-20 [facility] Laboratory - Hematology and Cell countsOrdered By: Alexia Stacy on 09-21-2023 Erythrocyte distribution width (RBC) [Entitic vol] 44.7 fL 35.1-43.9 [facility] Erythrocyte distribution width (RBC) [Ratio] 14.8 % 11.6-14.6 [facility] Immature granulocytes/100 WBC (Bld) 1.500 % 0.0-0.9 [facility] Comment on above: IG% - Immature Granu locytes (promyelocytes, myelocytes and metamyelocytes) > 1% indicates that a LEFT SHIFT is Present. MCH (RBC) [Entitic mass] 25.0 pg 27.0-32.0 [facility] Nucleated RBC/100 WBC (Bld) [Ratio] 0 % 0-5 [facility] MCHC Auto (RBC) [Mass/Vol]Or dered By: Alexia Stacy on 09-21-2023 MCHC (RBC) [Mass/Vol] 30.2 g/dL 32-36 [facility] No Panel InformationOrdered By: Alexia Stacy on 09-21-2023 Estimated GFR (MDRD) Amer 78 mL/min >60 [facility] Comment on above: GFR Calc Estimated GFR (MDRD) Non-Af Amer 65 mL/min >60 [facility] Comment on above: Non- GFR Calc Platelets bldOrdered By: Raphael Stacy on 09-21-2023 Platelets (Bld) [#/Vol] 362 10*3/uL 150-450 [facility] Serum or plasma calcium lamar urement (mass/volume)Ordered By: Alexia Stacy on 09-21-2023 Calcium [Mass/Vol] 8.7 mg/dL 8.5-10.[address] [facility] Serum or plasma creatinine m easurement (mass/volume)Ordered By: Alexia Stacy on 09-21-2023 Creatinine [Mass/Vol] 1.00 mg/dL 0.55-1.02 [facility] Comment on above: The validity of the calculated GFR & GFRAA in patients over 70 years has not been determined. Clinical correlation is essential. Serum or plasma urea nitroge n measurement (mass/volume)Ordered By: Alexia Stcay on 09-21-2023 Urea nitrogen [Mass/Vol] 11 mg/dL 06-15 [facility] Thin prep Papanicolaou smear with manual screeningOrdered By: Alexia Stacy on 09-21-2023 Thin prep Papanicolaou smear with manual screening 7 - [facility] No Panel Informationon 09-15 Radiology Result ACTIONABLE Abnormal [facility] Basophil percentageOrdered B y: Ha Echevarria on 08-12-2023 Chloride [Moles/Vol] 108 mmol/L 98-107 [facility] Cholesterol [Mass/Vol] 115 mg/dL <200 [facility] Comment on above: <200 mg/dL Desirable 200-240 mg/dL Borderline >240 mg/dL High Risk Glucose [Mass/Vol] 272 mg/dL 74-[address] [facility] Comment on above: Glucose result great er than or equal to 200 mg/dLsuggests DIABETES MELLITUS per A.D.A. criteria. Potassium [Moles/Vol] 3.9 mmol/L 3.5-5.1 [facility] Sodium [Moles/Vol] 137 mmol/L 136-[address] [facility] Triglyceride [Mass/Vol] 99 mg/dL <199 [facility] Comment on above: The drugs N-Acetylcy steine and Metamizole may falsely depress this assay.Serum Triglycerides Reference Interval Normal <150 mg/dL Borderline high 150 - 199 mg/dL High 200 - 499 mg/dL Very High > or = 500 mg/dL WBC (Bld) [#/Vol] 6.7 10*3/uL 4.4-11.[address] [facility] Blood erythrocytes count (nu mber/volume)Ordered By: Ha Echevarria on 08-12-2023 RBC (Bld) [#/Vol] 4.30 10*6/uL 4.2-5.4 [facility] Blood hemoglobin measurement (mass/volume)Ordered By: Ha Echevarria on 08-12-2023 Hemoglobin (Bld) [Mass/Vol] 11.4 g/dL 12.0-15.0 [facility] Blood platelet mean volumeOr dered By: Ha Echevarria on 08-12-2023 Platelet mean volume (Bld) [Entitic vol] 9.9 fL 6.2-12.0 [facility] Determination of erythrocyte mean corpuscular volume (MCV)Ordered By: Ha Echevarria on 08-12-2023 MCV (RBC) [Entitic vol] 84.7 fL 81-99 [facility] Glucose Glucometer (BldC) [M ass/Vol]Ordered By: Aj Colon on 08-12-2023 Glucose [Mass/Vol] 216 mg/dL 74-[address] [facility] Comment on above: MANAGEMENT OF PATIEN T CARE PER NURSING PROTOCOL Hematocrit Auto (Bld) [Volum e fraction]Ordered By: Ha Echevarria on 08-12-2023 Hematocrit (Bld) [Volume fraction] 36.4 % 37-47 [facility] Laboratory - Chemistry and C hemistry - challengeOrdered By: Ha Echevarria on 08-12-2023 CO2 [Moles/Vol] 24.0 mmol/L 21.0-32.0 [facility] Urea nitrogen/Creatinine [Mass ratio] 7.7 mg/mg 10-20 [facility] - CoagulationOrde red By: Ha Echevarria on 08-12-2023 aPTT Coag (Bld) [Time] 46.2 s 24.1-36.2 [facility] - Hematology and Cell countsOrdered By: Ha Echevarria on 08-12-2023 Erythrocyte distribution width (RBC) [Entitic vol] 44.0 fL 35.1-43.9 [facility] Erythrocyte distribution width (RBC) [Ratio] 14.5 % 11.6-14.6 [facility] MCH (RBC) [Entitic mass] 26.5 pg 27.0-32.0 [facility] MCHC Auto (RBC) [Mass/Vol]Or dered By: Ha Echevarria on 08-12-2023 MCHC (RBC) [Mass/Vol] 31.3 g/dL 32-36 [facility] No Panel InformationOrdered By: Ha Echevarria on 08-12-2023 Estimated Creatinine Clearance Calc 66.62 ml/min [facility] Estimated GFR (MDRD) Amer 87 mL/min >60 [facility] Comment on above: GFR Calc Estimated GFR (MDRD) Non-Af Amer 72 mL/min >60 [facility] Comment on above: Non- GFR Calc Troponin I High Sensitivity 2114 pg/mL 3.0-54.0 [facility] Comment on above: Critical Result(s) C alled at: 00:43:05 08/12/2023 by: DANA SAENZ TO PIPER ANDERSON RN (U) Results read back by same. Please Note: New Test Units and Gender Specific Reference Ranges. For more information see Policy Stat Procedure [place] High Sensitivity Troponin (TNIH) and attachments. Platelets bldOrdered By: Olman Echevarria on 08-12-2023 Platelets (Bld) [#/Vol] 278 10*3/uL 150-450 [facility] Serum or plasma calcium lamar urement (mass/volume)Ordered By: Ha Echevarria on 08-12-2023 Calcium [Mass/Vol] 8.3 mg/dL 8.5-10.[address] [facility] Serum or plasma cholesterol in HDL measurement (mass/volume)Ordered By: Ha Echevarria on 08-12-2023 Cholesterol in HDL [Mass/Vol] 48 mg/dL >40 [facility] Comment on above: The drugs N-Acetylcy steine and Metamizole may falsely depress this assay. Reference Range HDL <40 mg/dL Low HDL Cholesterol HDL >or= 60 mg/dL High HDL Cholesterol Serum or plasma cholesterol in VLDL measurement (mass/volume)Ordered By: Ha Echevarria on 08-12-2023 Cholesterol in VLDL [Mass/Vol] 20 mg/dL 5-40 [facility] Serum or plasma creatinine m easurement (mass/volume)Ordered By: Ha Echevarria on 08-12-2023 Creatinine [Mass/Vol] 0.91 mg/dL 0.55-1.02 [facility] Comment on above: The validity of the calculated GFR & GFRAA in patients over 70 years has not been determined. Clinical correlation is essential. Serum or plasma low density lipoprotein (LDL) cholesterol measurement (mass/volume)Ordered By: Ha Echevarria on 08-12-2023 Cholesterol in LDL [Mass/Vol] 47 mg/dL 0-130 [facility] Serum or plasma urea nitroge n measurement (mass/volume)Ordered By: Ha Echevarria on 08-12-2023 Urea nitrogen [Mass/Vol] 7 mg/dL 7-18 [facility] Thin prep Papanicolaou smear with manual screeningOrdered By: Ha Echevarria on 08-12-2023 Thin prep Papanicolaou smear with manual screening 5 5-15 [facility] Absolute lymphocyte countOrd ered By: Placido Pena on 08-11-2023 Lymphocytes Auto (Unsp spec) [#/Vol] 1.43 10*3/uL 0.83-4.51 [facility] Basophil percentageOrdered B y: Placido Pena on 08-11-2023 Basophil percentage 0 SEEN /hpf 0-5 [facility] Basophils/100 WBC (Bld) 0.6 % 0-1 [facility] Bilirubin [Mass/Vol] 0.60 mg/dL 0.20-1.00 [facility] Comment on above: For patients on eltr ombopag therapy, use of Dimension [place] TBIL is not recommended. Chloride [Moles/Vol] 106 mmol/L 98-107 [facility] Eosinophils/100 WBC (Bld) 1.3 % 0-5 [facility] Glucose [Mass/Vol] 280 mg/dL 74-[address] [facility] Comment on above: Glucose result great er than or equal to 200 mg/dLsuggests DIABETES MELLITUS per A.D.A. criteria. Neutrophils (Bld) [#/Vol] 3.4 10*3/uL 2.0-7.7 [facility] Neutrophils/100 WBC (Bld) 63.5 % 47-70 [facility] Potassium [Moles/Vol] 3.3 mmol/L 3.5-5.1 [facility] Protein [Mass/Vol] 6.8 g/dL 6.4-8.[address] [facility] Sodium [Moles/Vol] 135 mmol/L 136-[address] [facility] WBC (Bld) [#/Vol] 5.4 10*3/uL 4.4-11.[address] [facility] Beta hCG serum qualOrdered B y: Placido Pena on 08-11-2023 Beta HCG ( test) Ql Negative [facility] Bilirubin Test strip Ql (U)O rdered By: Placido Pena on 08-11-2023 Bilirubin Ql (U) Negative Negative [facility] Blood erythrocytes count (nu mber/volume)Ordered By: Placido Pena on 08-11-2023 RBC (Bld) [#/Vol] 4.41 10*6/uL 4.2-5.4 [facility] Blood hemoglobin measurement (mass/volume)Ordered By: Placido Pena on 08-11-2023 Hemoglobin (Bld) [Mass/Vol] 11.8 g/dL 12.0-15.0 [facility] Blood lymphocytes/100 leukoc ytesOrdered By: Placido Pena on 08-11-2023 Lymphocytes/100 WBC (Bld) 26.6 % 19-41 [facility] Blood monocytes/100 leukocyt esOrdered By: Placido Pena on 08-11-2023 Monocytes/100 WBC (Bld) 7.6 % 0-10 [facility] Blood platelet mean volumeOr dered By: Placido Pena on 08-11-2023 Platelet mean volume (Bld) [Entitic vol] 10.1 fL 6.2-12.0 [facility] Determination of erythrocyte mean corpuscular volume (MCV)Ordered By: Placido Pena on 08-11-2023 MCV (RBC) [Entitic vol] 85.7 fL 81-99 [facility] Hematocrit Auto (Bld) [Volum e fraction]Ordered By: Placido Pena on 08-11-2023 Hematocrit (Bld) [Volume fraction] 37.8 % 37-47 [facility] INR in Blood by Coagulation assayOrdered By: Placido Pena on 08-11-2023 INR Coag (Bld) [Relative time] 1.1 {INR} [facility] Ketones Test strip Ql (U)Ord ered By: Placido Pena on 08-11-2023 Ketones Ql (U) 5 mg/dl Negative [facility] Laboratory - Chemistry and C hemistry - challengeOrdered By: Placido Pena on 08-11-2023 ALP [Catalytic activity/Vol] 91 U/L 45-117 [facility] ALT [Catalytic activity/Vol] 105 U/L 13-56 [facility] CO2 [Moles/Vol] 25.0 mmol/L 21.0-32.0 [facility] Globulin (S) [Mass/Vol] 3.6 g/dL 2.2-4.2 [facility] Urea nitrogen/Creatinine [Mass ratio] 8.0 mg/mg 10-20 [facility] - CoagulationOrde red By: Placido Pena on 08-11-2023 aPTT Coag (Bld) [Time] 24.6 s 24.1-36.2 [facility] PT Coag (PPP) [Time] 14.1 s 11.7-14.9 [facility] - Hematology and Cell countsOrdered By: Placido Pena on 08-11-2023 Erythrocyte distribution width (RBC) [Entitic vol] 45.6 fL 35.1-43.9 [facility] Erythrocyte distribution width (RBC) [Ratio] 14.6 % 11.6-14.6 [facility] Immature granulocytes/100 WBC (Bld) 0.400 % 0.0-0.9 [facility] Comment on above: IG% - Immature Granu locytes (promyelocytes, myelocytes and metamyelocytes) > 1% indicates that a LEFT SHIFT is Present. MCH (RBC) [Entitic mass] 26.8 pg 27.0-32.0 [facility] Nucleated RBC/100 WBC (Bld) [Ratio] 0 % 0-5 [facility] MCHC Auto (RBC) [Mass/Vol]Or dered By: Placido Pena on 08-11-2023 MCHC (RBC) [Mass/Vol] 31.2 g/dL 32-36 [facility] Mucus LM Ql (Urine sed)Order ed By: Placido Pena on 08-11-2023 Mucus Ql (Urine sed) 0 SEEN /hpf [facility] Nitrite Test strip Ql (U)Ord ered By: Placido Pena on 08-11-2023 Nitrite Ql (U) Negative Negative [facility] No Panel InformationOrdered By: Placido Pena on 08-11-2023 D-Dimer Quantitative (PE/DVT) 0.72 FEU/ug/m 0.27-0.49 [facility] Comment on above: D-Dimer ELEVATED (>0 .49): Additional studies and clinicalassessments are indicated to conclude diagnosis of:Deep Vein Thrombosis (DVT) or Pulmonary Embolism (PE)CRITICAL VALUE VERIFIED. CALLED TO [id number]/23 Masoud Coombs.RESULTS READ BACK BY SAME . Estimated Creatinine Clearance Calc 53.65 ml/min [facility] Estimated GFR (MDRD) Amer 68 mL/min >60 [facility] Comment on above: GFR Calc Estimated GFR (MDRD) Non-Af Amer 56 mL/min >60 [facility] Comment on above: Non- GFR Calc Troponin I High Sensitivity 1494 pg/mL 3.0-54.0 [facility] Comment on above: TO Critical Result(s ) Called at: 18:38:20 08/11/2023 by: JIL CHRISTIAN TO REINALDO REYES. Results read back by same. Please Note: New Test Units and Gender Specific Reference Ranges. For more information see Policy Stat Procedure [facility] High Sensitivity Troponin (TNIH) and attachments. Platelets bldOrdered By: Adeline Pena on 08-11-2023 Platelets (Bld) [#/Vol] 311 10*3/uL 150-450 [facility] Protein Test strip Ql (U)Ord ered By: Placido Pena on 08-11-2023 Protein Ql (U) 30 mg/dl Negative [facility] Serum or plasma albumin lamar urement (mass/volume)Ordered By: Placido Pena on 08-11-2023 Albumin [Mass/Vol] 3.2 g/dL 3.2-5.[address] [facility] Serum or plasma albumin/glob ulin mass ratioOrdered By: Placido Pena on 08-11-2023 Albumin/Globulin [Mass ratio] 0.9 {ratio} 0.9-2.4 [facility] Serum or plasma calcium lamar urement (mass/volume)Ordered By: Placido Pena on 08-11-2023 Calcium [Mass/Vol] 9.0 mg/dL 8.5-10.[address] [facility] Serum or plasma creatinine m easurement (mass/volume)Ordered By: Placido Pena on 08-11-2023 Creatinine [Mass/Vol] 1.13 mg/dL 0.55-1.02 [facility] Comment on above: The validity of the calculated GFR & GFRAA in patients over 70 years has not been determined. Clinical correlation is essential. Serum or plasma urea nitroge n measurement (mass/volume)Ordered By: Placido Pena on 08-11-2023 Urea nitrogen [Mass/Vol] 9 mg/dL 7-18 [facility] Squamous epithelial cells de tection in urine sediment by light microscopyOrdered By: Placido Pena on 08-11-2023 Epithelial cells.squamous LM Ql (Urine sed) 0 SEEN /hpf 5-10 [facility] Thin prep Papanicolaou smear with manual screeningOrdered By: Placido Pena on 08-11-2023 Thin prep Papanicolaou smear with manual screening 60 U/L 15-37 [facility] Thin prep Papanicolaou smear with manual screening 4 5-15 [facility] Urine blood detectionOrdered By: Placido Pena on 08-11-2023 RBC Ql (U) Negative Negative [facility] RBC Ql (U) 0 SEEN /hpf 0-5 [facility] Urine clarityOrdered By: Adeline Pena on 08-11-2023 Clarity (U) Clear Clear [facility] Urine color determinationOrd ered By: Placido Pena on 08-11-2023 Color (U) Yellow Yellow [facility] Urine glucose detectionOrder ed By: Placido Pena on 08-11-2023 Glucose Ql (U) 250 mg/dl Normal [facility] Urine leukocyte esterase det ection by dipstickOrdered By: Placido Pena on 08-11-2023 Leukocyte esterase Test strip Ql (U) Negative Negative [facility] Urine pHOrdered By: Placido aguilar on 08-11-2023 pH (U) 6.0 [pH] 5.0 - 8.0 [facility] Urine sediment bacteria coun t by microscopy (number/high power field)Ordered By: Placido Pena on 08-11-2023 Bacteria LM.HPF (Urine sed) [#/Area] 0 /[HPF] None Seen [facility] Urine specific gravity measu rementOrdered By: Placido Pena on 08-11-2023 Specific gravity (U) [Rel density] 1.015 1.002-1.030 [facility] Urobilinogen Auto test strip Ql (U)Ordered By: Placido Pena on 08-11-2023 Urobilinogen Ql (U) Normal mg/dl Normal [facility] XR Shoulder - right 3 Viewso n 02-24-2023 IMPRESSION: No acute osseous abnormality. Clinical Supervisor: PSCB Transcribe Date/Time: Feb 24 2023 12:12P Dictated by : VIOLETTE JOSEPH DO This examination was interpreted and the report reviewed and electronically signed by: VIOLETTE JOSEPH DO on Feb 24 2023 12:14PM [facility] DIVISION OF RADIOLOGY * * *Final Report* [...] maintained. No fracture. DIVISION OF RADIOLOGY Provider, [facility] - 02/24/2023 * * *Final [...] fracture. IMPRESSION IMPRESSION: No acute osseous abnormality. Clinical Supervisor: PSCB Transcribe Date/Time: Feb 24 2023 12:12P Dictated by : VIOLETTE JOSEPH DO This examination was interpreted and the report reviewed and electronically signed by: VIOLETTE JOSEPH DO on Feb 24 2023 12:14PM EST [facility] XR Shoulder - right 3 ViewsO rdered By: Ccf Provider on 02-24-2023 [facility] SCREENINGon 02-23-2023 [facility] XR Shoulder - right 3 Viewso n 02-19-2023 Radiology Study observation (narrative) [facility] HbA1c (Bld)on 01-27-2023 HbA1c (Bld) [Mass fraction] 10 % Abnormal 4 - 6 % [facility] XR FOOT RIGHT (MIN 3 VIEWS)o [...] Cartwright MD 07/10/[address] [facility] NO ACUTE FRACTURES [facility] XR FOOT RIGHT (MIN 3 VIEWS) CLINICAL HISTORY: pain no history of trauma reported COMPARISON: None FINDINGS: Three views of the right foot are submitted. No acute fractures. No dislocations. No focal bony abnormalities No radiographic foreign body [facility] RADI[facility] Mateus Cartwright MD - 07/10/2022 XR FOOT RIGHT (MIN 3 VIEWS) CLINICAL HISTORY: pain no history of trauma reported COMPARISON: None FINDINGS: Three views of the right foot are submitted. No acute fractures. No dislocations. No focal bony abnormalities No radiographic foreign body IMPRESSION: NO ACUTE FRACTURES [employer] Phone: Radiology Study observation (narrative) NIKOLAS SALAS [employer] Phone: XR FOOT RIGHT (MIN 3 VIEWS)O rdered By: Mateus Cartwright on 07-10-2022 [employer] Phone: UR Microalbumin/Creatinine R atio Randomon 08-20-2021 Microalbumin/creatinine Ratio 23.9 mg/G Normal 0.0-30.0 [facility] Comment on above: Performed By: #### U MACR #### [facility] [address] [place] [address] UR Creatinine Random 117.2 mg/dL Normal Not Establ [facility] Comment on above: Performed By: #### U MACR #### [facility] [address] [place] [address] UR Microalbumin Random 2.80 mg/dL Critically high Not Esta bl [facility] Comment on above: Performed By: #### U MACR #### [facility] [address] [place] [address] BASIC METABOLIC PANELon 07-30 Anion gap [Moles/Vol] 12 mmol/L Normal 10 - 20 [facility] Comment on above: Performed By: #### B MP #### [address] [id number] Calcium [Mass/Vol] 9.1 mg/dL Normal 8.6 - 10.3 [facility] Comment on above: Performed By: #### B MP #### [address] [id number] Chloride [Moles/Vol] 103 mmol/L Normal 98 - 107 [facility] Comment on above: Performed By: #### B MP #### [address] [id number] Creatinine [Mass/Vol] 1.01 mg/dL Normal 0.50 - 1.05 [facility] Comment on above: Performed By: #### B MP #### [address] [id number] GFR- AM. >60 Normal >60 [facility] Comment on above: Result Comment: CALC ULATIONS OF ESTIMATED GFR ARE PERFORMED USING THE MDRD STUDY EQUATION FOR THE IDMS-TRACEABLE CREATININE METHODS. CLIN CHEM 2007;53:766-72 Performed By: #### B MP #### [address] [id number] GFR-NON AM. >60 Normal >60 [facility] Comment on above: Performed By: #### B MP #### [address] [id number] Glucose [Mass/Vol] 312 mg/dL High 74 - 99 [facility] Comment on above: Performed By: #### B MP #### [address] [id number] HCO3 (Bld) [Moles/Vol] 22 mmol/L Normal 21 - 32 [facility] Comment on above: Performed By: #### B MP #### [address] [id number] Potassium [Moles/Vol] 3.6 mmol/L Normal 3.5 - 5.3 [facility] Comment on above: Performed By: #### B MP #### [address] [id number] Sodium [Moles/Vol] 133 mmol/L Low 136 - 145 [facility] Comment on above: Performed By: #### B MP #### [address] [id number] Urea nitrogen [Mass/Vol] 12 mg/dL Normal 6 - 23 [facility] Comment on above: Performed By: #### B MP #### [address] [id number] BNPon 08-14-2021 Natriuretic peptide B (Bld) [Mass/Vol] 35 pg/mL Normal 0 - 99 [facility] Comment on above: Result Comment: . <1 00 pg/mL - Heart failure unlikely 100-299 pg/mL - Intermediate probability of acute heart . failure exacerbation. Correlate with clinical . context and patient history. >=300 pg/mL - Heart Failure likely. Correlate with clinical . context and patient history. BNP testing is performed using different testing methodology at [facility] than at other [facility]. Direct result comparisons should only be made within the same method. Performed By: #### B NP2 #### [address] [id number] CBC AND DIFFERENTIALon 08-14 % AUTOMATED IMMATURE GRAN 0.2 % Normal 0.0 - 0.9 [facility] Comment on above: Result Comment: Jojo ture Granulocyte Count (IG) includes promyelocytes, myelocytes and metamyelocytes but does not include bands. Percent differential counts (%) should be interpreted in the context of the absolute cell counts (cells/L). Performed By: #### C BCDF #### [address] [id number] Basophils (Bld) [#/Vol] 0.02 10*3/uL Normal 0.00 - 0.1 0 [facility] Comment on above: Performed By: #### C BCDF #### [address] [id number] Basophils/100 WBC (Bld) 0.3 % Normal 0.0 - 2.0 [facility] Comment on above: Performed By: #### C BCDF #### [address] [id number] Eosinophils (Bld) [#/Vol] 0.09 10*3/uL Normal 0.00 - 0.70 [facility] Comment on above: Performed By: #### C BCDF #### [address] [id number] Eosinophils/100 WBC (Bld) 1.4 % Normal 0.0 - 6.0 [facility] Comment on above: Performed By: #### C BCDF #### [address] [id number] Erythrocyte distribution width (RBC) [Ratio] 13.5 % Normal 11.5 - 14.5 [facility] Comment on above: Performed By: #### C BCDF #### [address] [id number] Hematocrit (Bld) [Volume fraction] 41.1 % Normal 36.0 - 46.0 [facility] Comment on above: Performed By: #### C BCDF #### [address] [id number] Hemoglobin (Bld) [Mass/Vol] 13.0 g/dL Normal 12.0 - 16.0 [facility] Comment on above: Performed By: #### C BCDF #### [address] [id number] Lymphocytes (Bld) [#/Vol] 2.23 10*3/uL Normal 1.20 - 4.80 [facility] Comment on above: Performed By: #### C BCDF #### [address] [id number] Lymphocytes/100 WBC (Bld) 34.5 % Normal 13.0 - 44.0 [facility] Comment on above: Performed By: #### C BCDF #### [address] [id number] MCHC (RBC) [Mass/Vol] 31.6 g/dL Low 32.0 - 36.0 [facility] Comment on above: Performed By: #### C BCDF #### [address] [id number] MCV (RBC) [Entitic vol] 85 fL Normal 80 - 100 [facility] Comment on above: Performed By: #### C BCDF #### [address] [id number] Monocytes (Bld) [#/Vol] 0.49 10*3/uL Normal 0.10 - 1.0 0 [facility] Comment on above: Performed By: #### C BCDF #### [address] [id number] Monocytes/100 WBC (Bld) 7.6 % Normal 2.0 - 10.0 [facility] Comment on above: Performed By: #### C BCDF #### [address] [id number] Neutrophils (Bld) [#/Vol] 3.63 10*3/uL Normal 1.20 - 7.70 [facility] Comment on above: Performed By: #### C BCDF #### [address] [id number] Neutrophils/100 WBC (Bld) 56.0 % Normal 40.0 - 80.0 [facility] Comment on above: Performed By: #### C BCDF #### [address] [id number] Platelets (Bld) [#/Vol] 374 10*3/uL Normal 150 - 450 [facility] Comment on above: Performed By: #### C BCDF #### [address] [id number] RBC 4.85 x10E12/L Normal 4.00 - 5.20 [facility] Comment on above: Performed By: #### C BCDF #### [address] [id number] WBC (Bld) [#/Vol] 6.5 10*3/uL Normal 4.4 - 11.3 [facility] Comment on above: Performed By: #### C BCDF #### [address] [id number] CHEST 1 VIEWon 08-14-2021 CHEST 1 VIEW Patient Name: PATT CRANE STUDY: CHEST 1 VIEW; 08/14/2021 5:54 pm INDICATION: Chest Pain. COMPARISON: None. ACCESSION NUMBER(S): [id number] ORDERING CLINICIAN: JIL YUN FINDINGS: AP radiograph of the chest was provided. CARDIOMEDIASTINAL SILHOUETTE: Cardiomediastinal silhouette is normal in size and configuration. LUNGS: Lungs are clear. ABDOMEN: No remarkable upper abdominal findings. BONES: No acute osseous changes. IMPRESSION: 1. No evidence of acute cardiopulmonary process. Electronically signed by: VÍCTOR MOORE MD Normal [facility] CT ANGIO CHEST FOR PEon - CT ANGIO CHEST FOR PE Patient Name: PATT CRANE STUDY: CT ANGIO CHEST FOR PE; 08/14/2021 7:44 pm INDICATION: cp, sob. COMPARISON: None. ACCESSION NUMBER(S): [id number] ORDERING CLINICIAN: MARQUISE PENA TECHNIQUE: Helical data [...] Electronically signed by: ROD ZIEGLER MD Normal [facility] Clinical Event Noteon 2020 Clinical Event Note Clinical Event: Clinical Event Note: Details Patient is a 41-year-old -[place] female presents ED with chest pain. Patient states that the pain is located in the center of her chest and radiates to the right side of her chest. Patient states that she works at [employer] and lifts a lot of heavy objects some as much as 50 pounds in weight and she says that 2 days ago while lifting she developed this pain in her chest. Patient states that the pain is exacerbated with lifting, coughing or taking a deep breath. Patient denies any history of MS or stroke but did have a TIA in 2010. Patient states she is also diabetic, type II and takes insulin. Patient is allergic to penicillin. Patient states she is currently asymptomatic. 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 The work-up and plan were discussed with [...] Allergy Allerge (more content not included)... Normal [facility] Risk Screen - Adult Emergenc yon 08-14-2021 Risk Screen - Adult Emergency Preferred Language: Preferred Language: Preferred Language for Discussing Health Care (patient/designee)Engl replaced by [facility] Advanced Directives: Advance Directive/DNRno Family Violence Adult: Abuse Screen: Are you or have you been threatened or abused physically, emotionally, or sexually by anyoneno Learning Assessment (Patient): Learning Assessment (Patient): Patient is Able to be Assessed for Learningyes Factors Influencing Readiness to Learnacuteness of illness Factors that Impact Ability to Learnnone Devices/Methods Used to Communicatenone Learning Preferencesaudio Cultural Considerationsnone Developmental Considerationsnone Zoroastrian Considerationsnone Learning Assessment (Other Learner): Learning Assessment (Other Learner): Other learner availableno Pressure Injury/TB/Substance: Pressure Injury: Do you have a coughno Smoking Statusnever smoker Alcohol Useoccasionally Drug Usedenies Drug 2 Usedenies Admission Risk Screen: Significant IndicatorsComplete CAGE: CAGE: Is this an injured patient at a Trauma Center ([facility]/[place]/[facility]/[place]): no Electronic Signatures: Baldev Corrigan) (Signed 14-Aug-2021 15:57) Authored: Preferred Language, Advanced Directives, Family Violence Adult, Learning Assessment (Patient), Learning Assessment (Other Learner), Pressure Injury/TB/Substance, Pressure Injury, CAGE Last Updated: 14-Aug-2021 15:57 by Baldev Corrigan (RN) Normal [facility] TROPONIN Ion 08-14-2021 Troponin I.cardiac [Mass/Vol] ng/mL Normal 0.00 - 0.03 [facility] Comment on above: Result Comment: [...] performed using different testing methodology at [facility] than at other [facility]. Direct result comparisons should only be made within the same method. Performed By: #### T ROP2 #### [address] [id number] Triage - EDon 08-14-2021 Triage - ED [...] BMI (kg/m2): 34.712 Calculated BSA (m2) 1.94 Francis Coma Scale: Best Eye Response: (E4) spontaneous Best Motor Response: (M6) obeys commands Best Verbal Response: (V5) oriented [place] Score: 15 Cough lasting greater than 3 [...] Past Medical History Reviewedyes Electronic Signatures: Baldev Corrigan (NATHALIE) (Signed 14-Aug-2021 15:56) Entered: Risk Screens, Pain, Travel History, Chart Review, Scores, Past Medical History Authored: Quick Triage, Risk Screens, Pain, Travel History, Chart Review, Scores, Past Medical History Last Updated: 14-Aug-2021 15:56 by Baldev Corrigan (NATHALIE) Normal [facility] Surgical Specimenon 01-17-20 21 Surgical Specimen [facility] [address] [place] [address] FINAL SURGICAL PATHOLOGY REPORT Patient Name: PATT CRANE Accession No: [id number] Age Sex: 1980 Location: [facility] Account No: [id number] Collected: 01/17/2021 Med Rec No: [id number] Received: 01/20/2021 Attend Phys: MIKE MUHAMMAD Completed: [...] in toto in one cassette. RENE/STUART CPT: 94113 X1 Alisia WAGNER M.D. 01/21/2021 Electronically signed out by Page 1 of [address] [facility] Comment on above: Performed By: #### S UR #### [facility] [address] [facility] [address] Otheron 12-20-2020 ENLARGED UTERUS. 4 C M COMPLEX MASS UTERINE FUNDUS, SUSPECTED UTERINE FIBROID. 2 CM COMPLEX HYPOECHOIC LESION LEFT OVARY, PROBABLE CORPUS LUTEAL CYST. FREE FLUID IN POSTERIOR CUL-DE-SAC. NORMAL SIZE OVARIES. NO ABNORMAL ADNEXAL MASS. [facility], [place] PELVIC TRANSABDOMINA L AND TRANSVAGINAL SONOGRAM [...] in both ovaries on color doppler imaging. [place], [place] Bry, Chpo Incoming Radiant Results From [employer] - 12/20/2020 2:10 PM EST PELVIC TRANSABDOMINAL [...] NORMAL SIZE OVARIES. NO ABNORMAL ADNEXAL MASS. [place], [place] HPV DNA Typingon 12-18-2020 HPV Type 16 Not detected Normal Not Detect [facility] HPV Type 18 Not detected Normal Not Detect [facility] HPVOH (Other types) Not detected Normal Not Detect [facility] Comment on above: Result Comment: *Inc ludes 31,33,35,39,45,51,52,56,58,59,66,68 genotypes Trichmonas Vaginalis Screen (EIA)on 12-14-2020 Trichomonas Vaginalis Screen (EIA) Negative Normal [facility] Comment on above: Performed By: #### E TRIC #### [facility] [address] [place] [address] Wet Prep-Medical Purposes On cisneros 12-14-2020 Wet Prep Clue Cellls None Seen Normal [facility] Comment on above: Performed By: #### W ETPR #### [facility] [address] [place] [address] Wet Prep Trichomonas See EIA Normal [facility] Comment on above: Performed By: #### W ETPR #### [facility] [address] [place] [address] Wet Prep Yeast None Seen Normal [facility] Comment on above: Performed By: #### W ETPR #### [facility] [address] [place] [address] Gynecological Specimen (Cyto logy)on 12-13-2020 Gynecological Specimen (Cytology) [facility] [address] [facility] [place] [address] FINAL CYTOLOGY PAP REPORT Patient Name: PATT CRANE Accession No: [id number] Age Sex: 1980 40 Y / F Location: [facility] Account No: [id number] Collected: 12/13/2020 Med Rec No: [id number] Received: 12/15/2020 Attend Phys: MIKE MUHAMMAD Completed: 12/19/2020 Perform Phys: MIKE MUHAMMAD SPECIMEN ADEQUACY: Satisfactory for Evaluation. Endocervical cells/transformation zone component present. GENERAL CATEGORIZATION: Negative for Intraepithelial Lesion or Malignancy Specimen: THINPREP LIQUID BASE IMAGED DIAGNOSTIC History: Source: Thin Prep Site: Cervical History: Previous abnormal smear? No History of CA? None given Lab Order#: [id number] Test Name Collected D AND T Result [...] (PCR) and nucleic acid hybridization. CPT: Technical: 27189 X1 Screened by: DULCE RESENDEZ(ASCP) DULCE RESENDEZ(ASCP) [...] processed and screened using a Thin Prep Lining Folder at [facility] [address] [place] [address] All abnormal gynecologic interpretation is performed at [facility], unless otherwise noted in the report. Page 1 of [address] [facility] Comment on above: Performed By: #### G YN #### [facility] [address] [place] [id number] HPV DNA Typingon 12-13-2020 HPV Comment See below Normal [facility] Comment on above: Result Comment: Th [...] 11-22-2020 C-Peptide 2.5 ng/mL Normal 1.1-4.4 [facility] Comment on above: Result Comment: [facility] [address] [place] [address] Comprehensive Metabolic Pane gosia 11-19-2020 Albumin [Mass/Vol] 4.1 g/dL Normal 3.5-4.6 [facility] Comment on above: Performed By: #### C MP #### [facility] [address] [place] [address] ALP [Catalytic activity/Vol] 103 U/L Normal 40-130 [facility] Comment on above: Performed By: #### C MP #### [facility] [address] [place] [address] ALT [Catalytic activity/Vol] 12 U/L Normal 0-33 [facility] Comment on above: Performed By: #### C MP #### [facility] [address] [place] [address] Anion gap [Moles/Vol] 11 mmol/L Normal 9-15 [facility] Comment on above: Performed By: #### C MP #### [facility] [address] [place] [address] AST [Catalytic activity/Vol] 10 U/L Normal 0-35 [facility] Comment on above: Performed By: #### C MP #### [facility] [address] [place] [address] Bilirubin [Mass/Vol] 0.4 mg/dL Normal 0.2-0.7 [facility] Comment on above: Performed By: #### C MP #### [facility] [address] [place] [address] Calcium [Mass/Vol] 8.8 mg/dL Normal 8.5-9.9 [facility] Comment on above: Performed By: #### C MP #### [facility] [address] [place] [address] Chloride [Moles/Vol] 101 mmol/L Normal 95-107 [facility] Comment on above: Performed By: #### C MP #### [facility] [address] [place] [address] CO2 [Moles/Vol] 21 mmol/L Normal 20-31 [facility] Comment on above: Performed By: #### C MP #### [facility] [address] [place] [address] Creatinine [Mass/Vol] 0.69 mg/dL Normal 0.50-0.90 [facility] Comment on above: Performed By: #### C MP #### [facility] [address] [place] [address] GFR >60.0 Normal >60 [facility] Comment on above: Result Comment: >60 mL/min/1.73m2 EGFR, calc. for ages 18 and older using the MDRD formula (not corrected for weight), is valid for stable renal function. Performed By: #### C MP #### [facility] [address] [place] [address] GFR/1.73 sq M.predicted among blacks MDRD (S/P/Bld) [Vol rate/Area] mL/min/{1.73_m2} Normal >60 [facility] Comment on above: Result Comment: >60 mL/min/1.73m2 EGFR, calc. for ages 18 and older using the MDRD formula (not corrected for weight), is valid for stable renal function. Performed By: #### C MP #### [facility] [address] [place] [address] Globulin (S) [Mass/Vol] 3.8 g/dL Critically high 2.3-3.5 [facility] Comment on above: Performed By: #### C MP #### [facility] [address] [place] [address] Glucose [Mass/Vol] 282 mg/dL Critically high 70-99 [facility] Comment on above: Performed By: #### C MP #### [facility] [address] [place] [address] Potassium [Moles/Vol] 4.0 mmol/L Normal 3.4-4.9 [facility] Comment on above: Performed By: #### C MP #### [facility] [address] [place] [address] Protein [Mass/Vol] 7.9 g/dL Normal 6.3-8.0 [facility] Comment on above: Performed By: #### C MP #### [facility] [address] [place] [address] Sodium [Moles/Vol] 133 mmol/L Low 135-144 [facility] Comment on above: Performed By: #### C MP #### [facility] [address] [place] [address] Urea nitrogen [Mass/Vol] 8 mg/dL Normal 6-20 [facility] Comment on above: Performed By: #### C MP #### [facility] [address] [place] [address] Lipid Panel Fastingon 2019 Cholesterol [Mass/Vol] 136 mg/dL Normal 0-[address] [facility] Comment on above: Result Comment: ATP III Cholesterol classification is Desirable. Performed By: #### L IPDF #### [facility] [address] [place] [address] HDL Cholesterol Fasting 45 mg/dL Normal 40-59 [facility] [place] Comment on above: Result Comment: ATP III [...] Performed By: #### L IPDF #### [facility] [address] [place] [address] LDL Cholesterol (Calculated) Fasting 75 mg/dL Normal 0-129 [facility] Comment on above: Result Comment: ATP III LDL Classification is Optimal. Performed By: #### L IPDF #### [facility] [address] [place] [address] Triglycerides Fasting 82 mg/dL Normal 0-150 [facility] Comment on above: Result Comment: ATP III Triglycerides Classification is Normal. Performed By: #### L IPDF #### [facility] [address] [place] [address] FOOT 3 OR MORE VW RTon 08-02 FOOT 3 OR MORE VW RT DATE OF EXAM: Aug 02 2017 7:40PMCLINICAL HISTORY/ Name: TIFFANY CRANEASTUDY:FOOT 3 OR MORE VW RT; HEEL/CALCANEUS RT; 08/02/2017 7:40 pmINDICATION:Trauma.CO MPARISON:None.ACCESSIO N NUMBER(S):[id number]; [id number] CLINICIAN:BAUTISTA BAIRDS:No evidence of fracture, dislocation or destructive lesion. Joint spaces and alignment are maintained. No significant soft tissue abnormalities identified.CONCLUSION: IMPRESSION:No fracture identified. Normal [facility] HEEL/CALCANEUS RTon 08-02-20 17 HEEL/CALCANEUS RT DATE OF EXAM: Aug 02 2017 7:40PMCLINICAL HISTORY/ Name: BLANCA CRANEUDY:FOOT 3 OR MORE VW RT; HEEL/CALCANEUS RT; 08/02/2017 7:40 pmINDICATION:Trauma.CO MPARISON:None.ACCESSIO N NUMBER(S):[id number]; [id number] CLINICIAN:BAUTISTA FUENTES:No evidence of fracture, dislocation or destructive lesion. Joint spaces and alignment are maintained. No significant soft tissue abnormalities identified.CONCLUSION: IMPRESSION:No fracture identified. Normal [facility] ECG B/O W INTERP (MED OFFICE ) [facility] Vital Signs Date Time Vital Sign Value Performing Clinician Facility 07-15-2025 04:20-0400 Diastolic blood pressure 89 mm[Hg] Garry MORROW Work Phone: [facility] 07-15-2025 04:20-0400 Heart rate 89 /min Garry MORROW Work Phone: [facility] 07-15-2025 04:20-0400 Respiratory rate 18 /min Garry Trill PROCUREMENT COST COORDINATOR-C Work Phone: [facility] 07-15-2025 04:20-0400 SaO2% (BldA) [Mass fraction] 98 % Garry Trill PROCUREMENT COST COORDINATOR-C Work Phone: [facility] 07-15-2025 04:20-0400 Systolic blood pressure 129 mm[Hg] Garry Trill PROCUREMENT COST COORDINATOR-C Work Phone: [facility] 07-15-2025 04:01-0400 Body temperature 98.1 [degF] Garry Trill PROCUREMENT COST COORDINATOR-C Work Phone: [facility] 07-14-2025 23:23-0400 Body height 160.02 cm Garry Trill PROCUREMENT COST COORDINATOR-C Work Phone: [facility] 07-14-2025 23:23-0400 Body mass index (BMI) [Ratio] 37 kg/m2 Garry Trill PROCUREMENT COST COORDINATOR-C Work Phone: [facility] 07-14-2025 23:23-0400 Body weight 94.98 kg Garry Trill PROCUREMENT COST COORDINATOR-C Work Phone: [facility] 06-20-2025 08:09-0400 Body height 160.02 cm Garry Trill PROCUREMENT COST COORDINATOR-C Work Phone: [facility] 06-20-2025 08:09-0400 Body mass index (BMI) [Ratio] 36.3 kg/m2 Garry Trill PROCUREMENT COST COORDINATOR-C Work Phone: [facility] 06-20-2025 08:09-0400 Body weight 92.98 kg Garry Trill PROCUREMENT COST COORDINATOR-C Work Phone: [facility] 06-20-2025 08:09-0400 Diastolic blood pressure 86 mm[Hg] Garry Trill PROCUREMENT COST COORDINATOR-C Work Phone: [facility] 06-20-2025 08:09-0400 Heart rate 81 /min Garry Trill PROCUREMENT COST COORDINATOR-C Work Phone: [facility] 06-20-2025 08:09-0400 Respiratory rate 16 /min Garry Rodriguez PROCUREMENT COST COORDINATOR-C Work Phone: [facility] 06-20-2025 08:09-0400 Systolic blood pressure 135 mm[Hg] Garry Trichito PROCUREMENT COST COORDINATOR-C Work Phone: [facility] 04-09-2025 16:15-0400 Diastolic blood pressure 98 mm[Hg] Garry Trichito REFRIGERATION INSULATOR.JAVA DEVELOPER Work Phone: [facility] 04-09-2025 16:15-0400 Systolic blood pressure 188 mm[Hg] Garry Trichito REFRIGERATION INSULATOR.JAVA DEVELOPER Work Phone: [facility] 04-09-2025 15:43-0400 Body height 160 cm Garry Rodriguez REFRIGERATION INSULATOR.JAVA DEVELOPER Work Phone: [facility] 04-09-2025 15:43-0400 Body mass index (BMI) [Ratio] 35.96 kg/m2 Garry Trichito REFRIGERATION INSULATOR.JAVA DEVELOPER Work Phone: [facility] 04-09-2025 15:43-0400 Body temperature 98.01 [degF] Garry Trichito REFRIGERATION INSULATOR.JAVA DEVELOPER Work Phone: [facility] 04-09-2025 15:43-0400 Body weight 92.08 kg Garry Trichito REFRIGERATION INSULATOR.JAVA DEVELOPER Work Phone: [facility] 04-09-2025 15:43-0400 Heart rate 103 /min Garry Rodriguez REFRIGERATION INSULATOR.JAVA DEVELOPER Work Phone: [facility] 04-09-2025 15:43-0400 SaO2% (BldA) [Mass fraction] 98 % Garry Trichito REFRIGERATION INSULATOR.JAVA DEVELOPER Work Phone: [facility] 12-06-2024 13:13-0500 Body height 160 cm Garry Trichito REFRIGERATION INSULATOR.JAVA DEVELOPER Work Phone: [facility] 12-06-2024 13:13-0500 Body mass index (BMI) [Ratio] 35.61 kg/m2 Garry Trichito REFRIGERATION INSULATOR.JAVA DEVELOPER Work Phone: [facility] 12-06-2024 13:13-0500 Body temperature 98.01 [degF] Garry Trill REFRIGERATION INSULATOR.JAVA DEVELOPER Work Phone: [facility] 12-06-2024 13:13-0500 Body weight 91.17 kg Garry Trill REFRIGERATION INSULATOR.JAVA DEVELOPER Work Phone: [facility] 12-06-2024 13:13-0500 Diastolic blood pressure 62 mm[Hg] Garry Trill REFRIGERATION INSULATOR.JAVA DEVELOPER Work Phone: [facility] 12-06-2024 13:13-0500 Heart rate 56 /min Garry Trill REFRIGERATION INSULATOR.JAVA DEVELOPER Work Phone: [facility] 12-06-2024 13:13-0500 Respiratory rate 16 /min Garry Trill REFRIGERATION INSULATOR.JAVA DEVELOPER Work Phone: [facility] 12-06-2024 13:13-0500 SaO2% (BldA) [Mass fraction] 98 % Garry Trill REFRIGERATION INSULATOR.JAVA DEVELOPER Work Phone: [facility] 12-06-2024 13:13-0500 Systolic blood pressure 122 mm[Hg] Garry Trill REFRIGERATION INSULATOR.JAVA DEVELOPER Work Phone: [facility] 01-12-2024 10:18-0500 Diastolic blood pressure 68 mm[Hg] Garry Trill REFRIGERATION INSULATOR.JAVA DEVELOPER Work Phone: [facility] 01-12-2024 10:18-0500 Systolic blood pressure 140 mm[Hg] Garry Trill REFRIGERATION INSULATOR.JAVA DEVELOPER Work Phone: [facility] 01-12-2024 10:08-0500 Body height 160 cm Garry Trill REFRIGERATION INSULATOR.JAVA DEVELOPER Work Phone: [facility] 01-12-2024 10:08-0500 Body temperature 97.59 [degF] Garry Trill REFRIGERATION INSULATOR.JAVA DEVELOPER Work Phone: [facility] 01-12-2024 10:08-0500 Body weight 83.92 kg Garry Rhodeschito GARBER.JAVA DEVELOPER Work Phone: [facility] 01-12-2024 10:08-0500 Heart rate 74 /min Garry Arturo GARBER.JAVA DEVELOPER Work Phone: [facility] 01-12-2024 10:08-0500 SaO2% (BldA) [Mass fraction] 99 % aGrry Rhodeschito GARBER.JAVA DEVELOPER Work Phone: [facility] 09-09-2023 15:58-0400 Body height 160.02 cm MD Placido Pena Work Phone: [facility] 09-09-2023 15:58-0400 Body mass index (BMI) [Ratio] 36.6 kg/m2 MD Placido Pena Work Phone: [facility] 09-09-2023 15:58-0400 Body weight 93.89 kg MD Placido Pena Work Phone: [facility] 09-09-2023 15:58-0400 Diastolic blood pressure 103 mm[Hg] MD Placido Pena Work Phone: [facility] 09-09-2023 15:58-0400 Heart rate 103 /min MD Placido Pena Work Phone: [facility] 09-09-2023 15:58-0400 Respiratory rate 16 /min MD Placido Pena Work Phone: [facility] 09-09-2023 15:58-0400 Systolic blood pressure 141 mm[Hg] MD Placido Pena Work Phone: [facility] 08-12-2023 16:47-0400 Body temperature 97.4 [degF] MD Placido Pena Work Phone: [facility] 08-12-2023 16:47-0400 Diastolic blood pressure 92 mm[Hg] MD Placido Pena Work Phone: [facility] 08-12-2023 16:47-0400 Heart rate 89 /min MD Placido Pena Work Phone: [facility] 08-12-2023 16:47-0400 Respiratory rate 18 /min MD Placido Pena Work Phone: [facility] 08-12-2023 16:47-0400 SaO2% (BldA) [Mass fraction] 96 % MD Placido Pena Work Phone: [facility] 08-12-2023 16:47-0400 Systolic blood pressure 140 mm[Hg] MD Placido Pena Work Phone: [facility] 08-11-2023 21:27-0400 Body mass index (BMI) [Ratio] 36.3 kg/m2 MD Placido Pena Work Phone: [facility] 08-11-2023 21:27-0400 Body weight 92.98 kg MD Placido Pena Work Phone: [facility] 08-11-2023 20:50-0400 Body temperature 97.7 [degF] [facility] 08-11-2023 20:50-0400 Diastolic blood pressure 99 mm[Hg] [facility] 08-11-2023 20:50-0400 Heart rate 108 /min [facility] 08-11-2023 20:50-0400 Respiratory rate 19 /min [facility] 08-11-2023 20:50-0400 SaO2% (BldA) [Mass fraction] 97 % [facility] 08-11-2023 20:50-0400 Systolic blood pressure 148 mm[Hg] [facility] 08-11-2023 16:41-0400 Body height 160.02 cm [facility] 08-11-2023 16:41-0400 Body mass index (BMI) [Ratio] 36.4 kg/m2 [facility] 08-11-2023 16:41-0400 Body weight 93.3 kg [facility] 05-05-2023 13:09-0400 Body height 160 cm Tone Espino MD Work Phone: [facility] 05-05-2023 13:09-0400 Body weight 90.72 kg Tone Espino MD Work Phone: [facility] 05-05-2023 13:09-0400 Diastolic blood pressure 80 mm[Hg] Tone Espino MD Work Phone: [facility] 05-05-2023 13:09-0400 Heart rate 98 /min Tone Espino MD Work Phone: [facility] 05-05-2023 13:09-0400 SaO2% (BldA) [Mass fraction] 99 % Tone Espino MD Work Phone: [facility] 05-05-2023 13:090400 Systolic blood pressure 144 mm[Hg] Tone Espino MD Work Phone: [facility] 03-23-2023 10:34-0400 Body height 160 cm Garry Trichito REFRIGERATION INSULATOR.JAVA DEVELOPER Work Phone: [facility] 03-23-2023 10:34-0400 Body temperature 98.6 [degF] Garry Trill REFRIGERATION INSULATOR.JAVA DEVELOPER Work Phone: [facility] 03-23-2023 10:34-0400 Body weight 92.99 kg Garry Trichito REFRIGERATION INSULATOR.JAVA DEVELOPER Work Phone: [facility] 03-23-2023 10:34-0400 Diastolic blood pressure 74 mm[Hg] Garry Trill REFRIGERATION INSULATOR.JAVA DEVELOPER Work Phone: [facility] 03-23-2023 10:34-0400 Heart rate 89 /min Garry Trill REFRIGERATION INSULATOR.JAVA DEVELOPER Work Phone: [facility] 03-23-2023 10:34-0400 SaO2% (BldA) [Mass fraction] 98 % Garry Trill REFRIGERATION INSULATOR.JAVA DEVELOPER Work Phone: [facility] 03-23-2023 10:34-0400 Systolic blood pressure 126 mm[Hg] Garry Trill REFRIGERATION INSULATOR.JAVA DEVELOPER Work Phone: [facility] 02-18-2023 10:06-0400 Diastolic blood pressure 88 mm[Hg] Garry Rodriguez APRN.JAVA DEVELOPER Work Phone: [facility] 02-18-2023 10:06-0400 Systolic blood pressure 158 mm[Hg] Garry Rodriguez APRN.JAVA DEVELOPER Work Phone: [facility] 02-17-2023 11:21-0400 Body height 160 cm Garry Rodriguez APRN.JAVA DEVELOPER Work Phone: [facility] 02-17-2023 11:21-0400 Body temperature 98.4 [degF] Garry Rodriguez APRN.JAVA DEVELOPER Work Phone: [facility] 02-17-2023 11:21-0400 Body weight 92.99 kg Garry Rodriguez APRN.JAVA DEVELOPER Work Phone: [facility] 02-17-2023 11:21-0400 Heart rate 95 /min Garry Rodriguez APRN.JAVA DEVELOPER Work Phone: [facility] 02-17-2023 11:21-0400 SaO2% (BldA) [Mass fraction] 98 % Garry Rodriguez APRN.JAVA DEVELOPER Work Phone: [facility] 07-10-2022 09:14-0400 Body height 157.5 cm Ama Augusta-Yelitza PA-C Work Phone: [facility] 07-10-2022 09:14-0400 Body mass index (BMI) [Ratio] 34.75 kg/m2 Ama Augusta-Yelitza PA-C Work Phone: [facility] [employer] 07-10-2022 09:14-0400 Body temperature 98.49 [degF] Ama Augusta-Yelitza PA-C Work Phone: [facility] [employer] 07-10-2022 09:14-0400 Body weight 86.18 kg Ama Augusta-Yelitza PA-C Work Phone: [facility] [employer] 07-10-2022 09:14-0400 Diastolic blood pressure 90 mm[Hg] Ama Augusta-Yelitza PA-C Work Phone: [facility] 07-10-2022 09:14-0400 Heart rate 92 /min Ama Augusta-Yelitza PA-C Work Phone: [facility] 07-10-2022 09:14-0400 Respiratory rate 20 /min Ama Augusta-Yelitza PA-C Work Phone: [facility] 07-10-2022 09:14-0400 SaO2% (BldA) [Mass fraction] 98 % Ama Augusta-Yelitza PA-C Work Phone: [facility] 07-10-2022 09:14-0400 Systolic blood pressure 148 mm[Hg] Ama Augusta-Yelitza PA-C Work Phone: [facility] 08-14-2021 22:32-0400 Diastolic blood pressure 91 mm[Hg] No Pcp Required [facility] 08-14-2021 22:32-0400 Heart rate 84 /min [facility] 08-14-2021 22:32-0400 Respiratory rate 20 /min No Pcp Required [facility] 08-14-2021 22:32-0400 SaO2% (BldA) [Mass fraction] 98 % No Pcp Required [facility] 08-14-2021 22:32-0400 Systolic blood pressure 167 mm[Hg] No Pcp Required [facility] 08-14-2021 17:51-0400 Body height 157.4 cm No Pcp Required [facility] 08-14-2021 17:51-0400 Body temperature 97.34 [degF] No Pcp Required [facility] 08-14-2021 17:51-0400 Body weight 86 kg No Pcp Required [facility] Encounters Encounter Date Encounter Type Care Provider Facility Start: 07-15-2025 Evaluation and management of inpatient Dr. Denis Watts DO -[facility] Work Phone: Start: 06-28-2025 End: 06-29-2025 Refill Garry Rodriguez REFRIGERATION INSULATOR.JAVA DEVELOPER Work Phone: [facility] Comment on above: Refill Request Start: 06-26-2025 End: 06-26-2025 Refill Garry Rodriguez REFRIGERATION INSULATOR.JAVA DEVELOPER Work Phone: [facility] Comment on above: Refill Request Start: 06-20-2025 End: 06-20-2025 Patient encounter procedure Keenan Lynne PROCUREMENT COST COORDINATOR-Liliane -[facility] Work Phone: Start: 06-20-2025 End: 06-20-2025 ambulatory Garry MORROW Work Phone: -[facility] Start: 06-06-2025 End: 06-08-2025 ambulatory Garry Rodriguez REFRIGERATION INSULATOR.JAVA DEVELOPER Work Phone: [facility] Start: 06-06-2025 End: 06-08-2025 Patient encounter procedure Garry Rodriguez REFRIGERATION INSULATOR.JAVA DEVELOPER Work Phone: [facility] Comment on above: Referral Start: 05-30-2025 End: 05-30-2025 ambulatory Federico Ambriz PT [facility] Comment on above: Plantar fasciitis (P rimary Dx); Pain of left heel Start: 05-24-2025 End: 05-24-2025 Patient encounter procedure [facility] Provider [facility] Department Start: 04-30-2025 End: 04-30-2025 Patient encounter procedure Emilia Griffiths Work Phone: Podiatry Comment on above: Plantar fasciitis (P rimary Dx) Start: 04-30-2025 End: 04-30-2025 ambulatory EMILIA GRIFFITHS Facility:[facility] Start: 04-11-2025 End: 04-11-2025 ambulatory Federico Ambriz PT [facility] Comment on above: Pain of left heel; Plantar fasciitis Start: 04-09-2025 End: 04-09-2025 Patient encounter procedure Garry Rodriguez APRN.JAVA DEVELOPER Work Phone: [facility] Comment on above: Type 2 diabetes maricruz itus with hyperglycemia, without long-term current use of insulin (HCC) (Primary Dx); Cardiomyopathy, unspecified type (HCC); Essential (primary) hypertension; Dyslipidemia; Plantar fasciitis of left foot; Presence of intrauterine contraceptive device; Encounter for screening mammogram for breast cancer Start: 04-09-2025 End: 04-09-2025 ambulatory GARRY RODRIGUEZ Facility:[facility] Start: 04-05-2025 End: 04-10-2025 ambulatory Garry Rodriguez APRN.JAVA DEVELOPER Work Phone: [facility] Comment on above: ADA Start: 04-04-2025 End: 04-05-2025 Follow-up encounter Garry Rodriguez APRN.CNP Work Phone: [facility] Comment on above: Results Start: 04-02-2025 End: 04-27-2025 ambulatory Emilia Griffiths Work Phone: Podiatry Comment on above: A.D.A Start: 03-26-2025 End: 03-26-2025 Patient encounter procedure Emilia Griffiths Work Phone: Podiatry Comment on above: Pain of left heel (P rimary Dx); Plantar fasciitis Start: 03-26-2025 End: 03-26-2025 ambulatory EMILIA GRIFFITHS Facility:[facility] Start: 03-22-2025 End: 03-22-2025 ambulatory GARRY RODRIGUEZ Facility:[facility] Start: 01-09-2025 End: 01-09-2025 ambulatory EMILIA GRIFFITHS Facility:[facility] Start: 01-09-2025 End: 01-09-2025 Patient encounter procedure Emilia Griffiths Work Phone: Podiatry Comment on above: Plantar fasciitis (P rimary Dx); Pain of left heel Start: 12-13-2024 End: 12-13-2024 ambulatory PIERO RODRIGUEZ APRN-JAVA DEVELOPER Facility:[facility] Start: 12-13-2024 End: 12-13-2024 Patient encounter procedure KRISTYN BRIONES MD [facility] Start: 12-12-2024 End: 12-12-2024 Telephone encounter Garry Rodriguez APRN.CNP Work Phone: [facility] Comment on above: Electronic Communica tion (Ozempic denied ) Start: 12-11-2024 End: 12-11-2024 ambulatory Garry Rodriguez APRN.CNP Work Phone: [facility] Comment on above: New prescription Start: 12-11-2024 End: 12-11-2024 E-mail encounter from caregiver Garry Rodriguez APRN.CNP Work Phone: [facility] Start: 12-11-2024 End: 12-11-2024 Telephone encounter Garry Rodriguez APRN.CNP Work Phone: [facility] Comment on above: Results Start: 12-07-2024 End: 12-07-2024 Telephone encounter Garry Rodriguez APRN.CNP Work Phone: [facility] Comment on above: Electronic Communica tion (Ozempic denied ) Start: 12-06-2024 End: 12-06-2024 Subsequent hospital visit by physician X[facility] Comment on above: Pain of left heel [M 79.672] Start: 12-06-2024 End: 12-06-2024 Patient encounter procedure Garry Rodriguez APRN.JAVA DEVELOPER Work Phone: [facility] Comment on above: Well adult [...] End: 12-06-2024 Patient encounter status Garry Rodriguez APRN.CNP Work Phone: [facility] Work Phone: Start: 12-06-2024 End: 12-06-2024 ambulatory GARRY RODRIGUEZ Facility:[facility] Start: 12-06-2024 Encounter for genera l adult medical examination without abnormal findings GARRY RODRIGUEZ [facility] Start: 12-04-2024 End: 12-05-2024 Refill Garry Rodriguez APRN.JAVA DEVELOPER Work Phone: [facility] Comment on above: Refill Request Start: 11-24-2024 End: 11-24-2024 ambulatory KRISTYN BRIONES MD Facility[facility] Start: 11-24-2024 End: 11-24-2024 Patient encounter procedure KRISTYN BRIONES MD [facility] Start: 11-23-2024 End: 11-23-2024 ambulatory Garry Rodriguez APRN.JAVA DEVELOPER Work Phone: [facility] Comment on above: Positive t est Start: 11-16-2024 End: 11-16-2024 ambulatory GARRY RODRIGUEZ Facility:[facility] Start: 11-16-2024 End: 11-16-2024 Subsequent hospital visit by physician [facility] (I-Stat) Work Phone: Cat Scan Comment on above: Lung nodule [R91.1] Start: 10-09-2024 End: 10-09-2024 Telephone encounter Garry Rodriguez APRN.JAVA DEVELOPER Work Phone: [facility] Comment on above: Orders Start: 08-16-2024 ambulatory Alexia Stacy NP Facili ty:[facility] Start: 05-23-2024 ambulatory PIERO Sultana REFRIGERATION INSULATOR-JAVA DEVELOPER Facility:B Start: 05-10-2024 End: 05-10-2024 ambulatory KRISTYN BRIONES MD Facility:[facility] Start: 05-10-2024 End: 05-10-2024 Patient encounter procedure KRISTYN BRIONES MD [facility] Start: 03-20-2024 Telephone encounter Garry Rodriguez APRN.CNP Work Phone: [facility] Comment on above: Medication Dosage Ad justment (Trulicity) Start: 02-16-2024 End: 02-16-2024 ambulatory KRISTYN BRIONES MD Facility:[facility] Start: 02-16-2024 End: 02-16-2024 Patient encounter procedure KRISTYN BRIONES MD [facility] Start: 01-13-2024 ambulatory Garry sultana APRN.CNP Work Phone: [facility] Start: 01-13-2024 Letter encounter Garry dale APRN.CNP Work Phone: [facility] Comment on above: Letter for airport Start: 01-12-2024 Telephone encounter Garry Rodriguez APRN.CNP Work Phone: [facility] Comment on above: Results (CT abd/pel results) Start: 01-12-2024 End: 01-12-2024 Patient encounter procedure Garry Rodriguez APRN.CNP Work Phone: [facility] Comment on above: Type 2 diabetes maricruz itus without complication, without long- term current use of insulin (HCC) (Primary Dx); Encounter for screening mammogram for breast cancer; Chronic right shoulder pain; Fatty liver Start: 01-08-2024 E-mail encounter fro m caregiver Garry Rodriguez APRN.CNP Work Phone: [facility] Start: 01-08-2024 Patient encounter procedure Garry Rodriguez APRN.CNP Work Phone: [facility] Comment on above: Appointment Request (HM) Start: 10-27-2023 End: 10-31-2023 ambulatory PIERO BELCHER Facility:[facility] Start: 10-27-2023 End: 10-31-2023 Encounter for gynecological examination (general) (routine) without abnormal findings JESSICA GALLEGO Facility:B Start: 10-12-2023 End: 10-12-2023 ambulatory MD Placido Pena Work Phone: [facility] Work Phone: Start: 10-12-2023 End: 10-12-2023 Patient encounter procedure MD Placido Pena Work Phone: [facility] Work Phone: Start: 10-06-2023 Telephone encounter Garry Rodriguez APRN.JAVA DEVELOPER Work Phone: [facility] Comment on above: Results (CT A/P) Start: 10-06-2023 End: 10-06-2023 Subsequent hospital [facility] Comment on above: Intra-abdominal and pelvic swelling, mass and lump, unspecified site [R19.00] Start: 09-21-2023 End: 09-21-2023 ambulatory MD Placido Pena Work Phone: [facility] Work Phone: Start: 09-21-2023 End: 09-21-2023 Patient encounter procedure MD Placido Pena Work Phone: [facility] Work Phone: Start: 09-16-2023 Telephone encounter Garry Rodriguez APRN.JAVA DEVELOPER Work Phone: [facility] Comment on above: Patient Question; Re sults Start: 09-15-2023 End: 09-15-2023 Subsequent hospital visit by physician [facility] Work Phone: Radiology Comment on above: Epigastric pain [R10 .13] Start: 09-13-2023 ambulatory Garry sultana APRN.JAVA DEVELOPER Work Phone: [facility] Comment on above: Abdomen Start: 09-10-2023 Telephone encounter Akshat Quesada MA [facility] Comment on above: Results Start: 09-09-2023 End: 09-09-2023 Patient encounter procedure MD Placido Pena Work Phone: [facility] Work Phone: Start: 09-08-2023 Telephone encounter Tone goss MD Work Phone: [facility] Comment on above: Results Start: 08-12-2023 Non-patient / Non-visit MD Adeline Pena Work Phone: [facility] Work Phone: Start: 08-12-2023 Non-patient / Non-visit MD Adeline Pena Work Phone: [facility] Start: 08-11-2023 Non-patient / Non-visit MD Adeline Pena Work Phone: [facility] Work Phone: Start: 08-11-2023 End: 08-12-2023 Evaluation and management of inpatient [facility] Work Phone: Start: 08-11-2023 End: 08-11-2023 Patient encounter procedure Lauren Cotto APRN.JAVA DEVELOPER Work Phone: [facility] Comment on above: Dizziness (Primary D x) Start: 07-01-2023 Telephone encounter Tone goss MD Work Phone: [facility] Comment on above: Results Start: 05-05-2023 End: 05-05-2023 Patient encounter procedure Tone Espino MD Work Phone: [facility] Comment on above: cardiomyopathy, post (Primary Dx); Hyperlipidemia, unspecified hyperlipidemia type Start: 03-23-2023 Telephone encounter Akshat Quesada JHON [facility] Comment on above: Medication Problem ( PRIOR AUTH DONE ON OZEMPIC ) Start: 03-23-2023 End: 03-23-2023 Patient encounter procedure Garry Rodriguez APRN.JAVA DEVELOPER Work Phone: [facility] Comment on above: Type 2 diabetes maricruz itus with hyperglycemia, with long-term current use of insulin (HCC) (Primary Dx); Obesity, Class II, BMI 35-39.9; Depression screening Start: 02-25-2023 Refill Garry sultana APRN.CNP Work Phone: [facility] Comment on above: Refill Request Results (X-Ray) Results (Mammogram) Start: 02-24-2023 Telephone encounter [facility] Comment on above: Patient Update (Prio r auth on ozempic ) Start: 02-23-2023 Documentation procedure Mammog edwar Coordinator [facility] Start: 02-23-2023 Letter encounter Mammography Coordinator [facility] Department Start: 02-23-2023 End: 02-23-2023 Refill [facility] Comment on above: Encounter for screen ing mammogram for malignant neoplasm of breast [Z12.31] Start: 02-22-2023 Telephone encounter [facility] Comment on above: Medication Problem Start: 02-19-2023 End: 02-19-2023 Subsequent hospital visit by physician Ac [facility] Sanjuana Work Phone: Radiology Comment on above: Chronic right should er pain [M25.511, G89.29] Start: 02-17-2023 End: 02-17-2023 Patient encounter procedure Garry Rodriguez APRN.CNP Work Phone: [facility] Comment on above: Type 2 [...] 07-10-2022 End: 07-10-2022 Emergency department patient visit AMA VAUGHN [facility] Start: 07-10-2022 End: 07-10-2022 Emergency department patient visit Ama Vaughn PA-C Work Phone: [facility] Comment on above: Metatarsalgia of lef t foot (Primary Dx) Start: 01-29-2022 End: 01-30-2022 ambulatory AMA RODERICK [facility] Start: 01-29-2022 End: 01-29-2022 Subsequent hospital visit by physician Retail Manager In Training 1 Schedule [facility] Comment on above: Arrived Start: 08-14-2021 End: 08-14-2021 Emergency department patient visit Marquise Barrios ED 21 Start: 12-19-2020 End: 12-21-2020 Subsequent hospital visit by physician Josh Ultrasound 2 [facility] Comment on above: Menorrhagia with reg ular cycle Start: 01-16-2020 End: 01-16-2020 Subsequent hospital visit by physician [facility] Comment on above: Canceled (Patient) Start: 01-09-2020 End: 01-09-2020 Subsequent hospital visit by physician Peter Rea [facility] Start: 01-02-2020 End: 01-02-2020 Subsequent hospital visit by physician Moe Wong [facility] Comment on above: Arrived Start: 12-26-2019 End: 12-26-2019 Subsequent hospital visit by physician Татьяна Dinh DEMO SPECIALIST [facility] Comment on above: Canceled (Other) Start: 12-19-2019 End: 12-19-2019 Subsequent hospital visit by physician Moe Wong PTA [facility] Start: 12-12-2019 End: 12-12-2019 Subsequent hospital visit by physician Shasta Coe PT [facility] Comment on above: Canceled (Other) Start: 12-05-2019 End: 12-05-2019 Subsequent hospital visit by physician Peter [facility] Comment on above: Arrived Start: 11-28-2019 End: 11-28-2019 Subsequent hospital visit by physician Sonia Castellano PT [facility] Comment on above: Arrived Start: 08-02-2017 End: 08-02-2017 Emergency department patient visit LISSA Hickman SHANIKAJAEL Facility:[id number] Start: 08-02-2017 Ambulatory Facility:[id number] Procedures Date Procedure Procedure Detail Performing Clinician Start: 07-15-2025 CT angiography of he ad and neck Garry Rodriguez NP-C Work Phone: Start: 07-15-2025 CT of head without contrast Garry GUARDADOC Work Phone: Start: 07-15-2025 Estimated creatinine clearance Garry Rodriguez PROCUREMENT COST COORDINATOR-C Work Phone: Start: 04-09-2025 Hemoglobin A1c/Hemoglobin.total in Blood Garry Rodriguez REFRIGERATION INSULATOR.JAVA DEVELOPER Work Phone: Start: 12-06-2024 Urine albumin quantitative Garry Rodriguez APRN.JAVA DEVELOPER Work Phone: Start: 12-06-2024 Hemoglobin A1c/Hemoglobin.total in Blood Garry Rodriguez REFRIGERATION INSULATOR.JAVA DEVELOPER Work Phone: Start: 12-06-2024 Adult depression screening assessment [facility] Start: 01-12-2024 Hemoglobin A1c/Hemoglobin.total in Blood Garry Rodriguez REFRIGERATION INSULATOR.JAVA DEVELOPER Work Phone: Start: 11-29-2023 Induced dil ation & evacuation KRISTYN BRIONES MD Start: 10-06-2023 Ct abdomen & pelvis w/contrast material Garry Rodriguez APRN.JAVA DEVELOPER Work Phone: Start: 09-15-2023 Us abdominal real ti me w/image limited Garry Rodriguez APRN.JAVA DEVELOPER Work Phone: Start: 08-11-2023 CT angiography of ch est with contrast Start: 08-11-2023 Plain chest X-ray Start: 05-05-2023 Ecg routine ecg w/le ast 12 lds w/i&r Tone Espino MD Work Phone: Start: 02-23-2023 End: 02-23-2023 Mammography Garry Rodriguez APRN .JAVA DEVELOPER Work Phone: Start: 02-19-2023 Radex shoulder compl ete minimum 2 views Garry Rodriguez APRN.JAVA DEVELOPER Work Phone: Start: 01-27-2023 Hemoglobin A1c/Hemoglobin.total in [...] ion [Identifier] in Cervix by Cyto stain 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 Start: 08-26-2011 section KRISTYN BRIONES MD Plan of Treatment Date Care Activity Detail Author Start: 2031 Shingles Vaccine (1 of 2) Shingles Vaccine (1 of 2) [facility] Work Phone: Start: 04-09-2026 Annual PCP Team Chronic Disease Visit Annual PCP Team Chronic Disease Visit [facility] Start: 04-09-2026 Urine microalbumin profile DTaP,Tdap,Td Vaccine (3 - Td or Tdap) [facility] Comment on above: Postponed from 04/01/2025 (Declined at t his time) Start: 03-22-2026 Hepatitis B surface antibody level LDL Cholesterol [facility] Start: 12-13-2025 PAP TESTING PAP TESTING [facility] Start: 12-13-2025 Screening for malignant neoplasm of cervix [facility] Start: 12-06-2025 Annual PCP Team Chronic Disease Visit Annual PCP Team Chronic Disease Visit [facility] Start: 12-06-2025 Anxiety Screening Anxiety Screening [facility] Start: 12-06-2025 BP Controlled (<130/80) BP Controlled (<130/80) [facility] Start: 12-06-2025 Depression Screening Depression Screening [facility] Start: 12-06-2025 Hepatitis B screening Urine Albumin:Creatinine Ratio [facility] Start: 12-06-2025 Hepatitis B Vaccine (1 of 3 - 19+ 3-dose series) Hepatitis B Vaccine (1 of 3 - 19+ 3-dose series) [facility] Comment on above: Postponed from 2000 (Declined at t his time) Start: 12-06-2025 Pneumococcal vaccination Pneumococcal Vaccine (1 of 2 - PCV) [facility] Comment on above: Postponed from 2000 (Declined at t his time) Start: 08-15-2025 End: 08-15-2025 Patient encounter procedure 08/15/2025 10:20 AM EDT Office Visit [facility] [address] [place] [address] Garry Rodriguez APRN.JAVA DEVELOPER [address], [place] [id number] for Diabetes. [facility] Comment on above: for Diabetes. Start: 07-30-2025 Influenza vaccination [facility] Start: 07-16-2025 End: 07-16-2025 ambulatory 07/16/2025 10:45 AM EDT OT/PT/Speech Visit [facility] [address] [place] [address] Federico Ambriz PT left heel [facility] Comment on above: left heel Start: 07-15-2025 MRI of brain without contrast Brain without Contrast [facility] Start: 07-15-2025 Admission procedure [facility] Start: 07-15-2025 Hospital admission, emergency, from emergency room, medical nature [facility] Start: 07-15-2025 End: 07-15-2025 [facility] Start: 07-10-2025 Hemoglobin A1c measurement HbA1C [facility] Start: 06-27-2025 End: 06-27-2025 ambulatory 06/27/2025 8:15 AM EDT OT/PT/Speech Visit [facility] [address] [place] [address] Federico Ambriz, PT M79.672 (ICD-10-CM) - Pain of left heel [facility] Comment on above: M79.672 (ICD-10-CM) - Pain of left heel Start: 06-20-2025 End: 06-20-2025 ambulatory 06/20/2025 8:15 AM EDT OT/PT/Speech Visit [facility] [address] [place] [address] Federico Ambriz, PT M79.672 (ICD-10-CM) - Pain of left heel [facility] Comment on above: M79.672 (ICD-10-CM) - Pain of left heel Start: 06-13-2025 End: 06-13-2025 ambulatory 06/13/2025 8:15 AM EDT OT/PT/Speech Visit [facility] [address] [place] [address] Federico Ambriz, PT M79.672 (ICD-10-CM) - Pain of left heel [facility] Comment on above: M79.672 (ICD-10-CM) - Pain of left heel Start: 06-06-2025 End: 06-06-2025 ambulatory 06/06/2025 8:15 AM EDT OT/PT/Speech Visit [facility] [address] [place] [address] Federico Ambriz, PT M79.672 (ICD-10-CM) - Pain of left heel [facility] Comment on above: M79.672 (ICD-10-CM) - Pain of left heel Start: 05-30-2025 End: 05-30-2025 Patient encounter procedure 05/30/2025 11:00 AM EDT Office Visit [facility] [address] [place] [address] Garry Rodriguez APRN.JAVA DEVELOPER [address] [place] [address] Follow up [facility] Comment on above: Follow up glucose Start: 05-30-2025 End: 05-30-2025 ambulatory 05/30/2025 8:15 AM EDT OT/PT/Speech Visit [facility] [address] [place] [address] Federico Ambriz, PT M79.672 (ICD-10-CM) - Pain of left heel [place] [facility] Comment on above: M79.672 (ICD-10-CM) - Pain of left heel Start: 05-28-2025 Influenza vaccination Influenza Vaccine (#1) [facility] Comment on above: Postponed from 07/30/2024 (Declined at t his time) Start: 05-07-2025 End: 05-07-2025 Patient encounter procedure 05/07/2025 3:45 PM EDT Office Visit Podiatry [address] [place] [address] Emilia Griffiths [address] [place] [address] 6 week follow up heel pain Podiatry Comment on above: 6 week follow up heel pain Start: 05-02-2025 End: 05-02-2025 ambulatory 05/02/2025 10:30 AM EDT OT/PT/Speech Visit [facility] [address] [place] [address] Srini Glover, PT, DPT M79.672 (ICD-10-CM) - [facility] Comment on above: M79.672 (ICD-10-CM) - Pain of left heel Start: 04-30-2025 End: 04-30-2025 Patient encounter procedure 04/30/2025 3:30 PM EDT Office Visit Podiatry [address] [place] [address] Emilia Griffiths [address] [place] [address] 6 week follow up heel pain Podiatry Comment on above: 6 week follow up heel pain Start: 04-25-2025 End: 04-25-2025 ambulatory 04/25/2025 8:00 AM EDT OT/PT/Speech Visit [facility] [address] [place] [address] Vidya Smith, DEMO SPECIALIST [address] [place] [address] M79.672 (ICD-10-CM) - Pain of left heel [facility] Comment on above: M79.672 (ICD-10-CM) - Pain of left heel Start: 04-11-2025 End: 04-11-2025 ambulatory 04/11/2025 11:15 AM EDT OT/PT/Speech Visit [facility] [address] [place] [address] Federico Ambriz PT Dx: Pain of left heel [M79.672]; Plantar fasciitis [M72.2] [facility] Comment on above: Dx: Pain of left heel [M79.672]; Plantar fasciitis [M72.2] Start: 04-01-2025 DTaP/Tdap/Td vaccine (3 - Td or Tdap) DTaP/Tdap/Td vaccine (3 - Td or Tdap) [facility] Start: 04-01-2025 DTaP/Tdap/Td vaccine (3 - Td) DTaP/Tdap/Td vaccine (3 - Td) [facility] Work Phone: Start: 04-01-2025 Urine microalbumin profile [facility] josé Start: 03-14-2025 End: 03-14-2025 Patient encounter procedure 03/14/2025 10:40 AM EDT Office Visit [facility] [address] [place] [address] Garry Rodriguez APRN.JAVA DEVELOPER [address], [place] [id number] follow up for Diabetes. [facility] Comment on above: follow up for Diabetes. Start: 03-06-2025 Hemoglobin A1c measurement HbA1C [facility] josé Start: 01-12-2025 Annual PCP Team Chronic Disease Visit Annual PCP Team Chronic Disease Visit [facility] Start: 01-09-2025 End: 01-09-2025 Patient encounter procedure 01/09/2025 3:45 PM EST Office Visit Podiatry [address] [place] [address] Emilia Griffiths [address] [address] heel pain Podiatry Comment on above: heel pain Start: 12-25-2024 Glaucoma screening Dilated Retinal Exam [facility] Comment on above: Postponed from 12/22/2024 (Currently Josse eduled) Start: 12-22-2024 Glaucoma screening Dilated Retinal Exam [facility] Start: 12-12-2024 End: 12-12-2024 ambulatory 12/12/2024 3:45 PM EST OT/PT/Speech Visit [facility] [address] [place] [address] OJessica Eng, PT Pain in shoulder [facility] Comment on above: Pain in shoulder Start: 12-06-2024 End: 07-04-2025 CBC panel - Blood by Automated count COMPLETE BLOOD COUNT Lab Routine Type 2 diabetes mellitus with hyperglycemia, without long-term current use of insulin ([facility]) Expected: 12/06/2024, Expires: 07/04/2025 [facility] Comment on above: Expected: 12/06/2024, Expires: Start: 12-06-2024 End: 07-04-2025 Comprehensive metabolic 2000 panel - Serum or Plasma COMPREHENSIVE METABOLIC PANEL Lab Routine Type 2 diabetes mellitus with hyperglycemia, without long-term current use of insulin (HCC) Expected: 12/06/2024, Expires: 07/04/2025 [facility] Comment on above: Expected: 12/06/2024, Expires: Start: 12-06-2024 End: 07-04-2025 Lipid 1996 panel - Serum or Plasma LIPID PANEL BASIC Lab Routine Type 2 diabetes mellitus with hyperglycemia, without long-term current use of insulin (HCC) Expected: 12/06/2024, Expires: 07/04/2025 [facility] Work Phone: Comment on above: Expected: 12/06/2024, Expires: Start: 12-06-2024 End: 07-04-2025 Magnesium [Mass/volume] in Serum or Plasma MAGNESIUM Lab Routine Type 2 diabetes mellitus with hyperglycemia, without long-term current use of insulin (HCC) Expected: 12/06/2024, Expires: 07/04/2025 [facility] Comment on above: Expected: 12/06/2024, Expires: Start: 12-06-2024 End: 07-04-2025 Phosphate [Mass/volume] in Serum or Plasma PHOSPHORUS INORGANIC Lab Routine Type 2 diabetes mellitus with hyperglycemia, without long-term current use of insulin (HCC) Expected: 12/06/2024, Expires: 07/04/2025 [facility] Comment on above: Expected: 12/06/2024, Expires: Start: 12-06-2024 End: 12-06-2024 Patient encounter procedure 12/06/2024 1:20 PM EST Office Visit [facility] [address] [place] [address] Garry Rodriguez APRN.JAVA DEVELOPER [address] [place] [address] [facility] Comment on above: JAX Start: 11-28-2024 Behavioral Health Screening Behavioral Health Screening [facility] Comment on above: Postponed from 11/29/2023 (Declined at t his time) Start: 11-28-2024 Depression Assessment Depression Assessment [facility] Comment on above: Postponed from 11/29/2023 (Declined at t his time) Start: 11-07-2024 Cervical cancer screen Cervical cancer screen [facility] Phone: Start: 08-20-2024 Annual PCP Team Chronic Disease Visit Annual PCP Team Chronic Disease Visit [facility] Start: 07-30-2024 Covid-19 Vaccine () Covid-19 Vaccine () [facility] Start: 07-30-2024 Influenza vaccination [facility] Start: 04-11-2024 Hemoglobin A1c measurement HbA1C [facility] Start: 03-23-2024 3 comp foot exam completed DIABETIC FOOT EXAM [facility] Start: 03-23-2024 ANNUAL PCP TEAM CHRONIC DISEASE VISIT ANNUAL PCP TEAM CHRONIC DISEASE VISIT [facility] Start: 03-23-2024 COVID-19 VACCINE (#1) COVID-19 VACCINE (#1) [facility] Comment on above: Postponed from 1981 (Declined at t his time) Start: 03-23-2024 Diabetic foot examination Diabetic Foot Exam [facility] Start: 02-24-2024 Mammography [facility] Start: 02-24-2024 Screening for malignant neoplasm of breast Mammogram Screening [facility] Start: 02-20-2024 Hepatitis B surface antibody level LDL CHOLESTEROL [facility] Start: 02-18-2024 ANNUAL PCP TEAM CHRONIC DISEASE VISIT ANNUAL PCP TEAM CHRONIC DISEASE VISIT [facility] Start: 12-13-2023 Screening for malignant neoplasm of cervix [facility] Start: 11-29-2023 Depression Assessment Depression Assessment [facility] Start: 11-19-2023 Hemoglobin A1c measurement HbA1C [facility] Start: 11-19-2023 Hemoglobin A1c/Hemoglobin.total in Blood HbA1C [facility] Start: 10-09-2023 End: 12-09-2023 Hepatic function 2000 panel - Serum or Plasma HEPATIC FUNCTION PNL Lab Routine Hyperlipidemia, unspecified hyperlipidemia type Expected: 10/09/2023, Expires: 12/09/2023 [facility] Work Phone: Comment on above: Expected: 10/09/2023, Expires: Start: 08-12-2023 Patient referral [facility] Work Phone: Start: 08-12-2023 Notification of physician [facility] Start: 08-12-2023 Patient discharge [facility] Start: 08-12-2023 Provision of activity privileges [facility] Start: 08-12-2023 Pulse taking [facility] Start: 08-12-2023 Scheduling [facility] Start: 08-12-2023 [address] vital [address] [facility] Start: 08-12-2023 [facility] Start: 08-12-2023 Catheterization of vein [facility] Start: 08-12-2023 Medication not administered [facility] Start: 08-12-2023 Notification of physician [facility] Start: 08-12-2023 [facility] Start: 08-11-2023 End: 08-12-2023 [facility] Start: 08-11-2023 Following clinical pathway protocol [facility] Start: 08-11-2023 Ambulation without limitation [facility] Start: 08-11-2023 Assessment of risk of venous thromboembolism [facility] Start: 08-11-2023 Care regimes management [facility] Start: 08-11-2023 Insertion of catheter into peripheral vein [facility] Start: 08-11-2023 Measuring intake and output [facility] Start: 08-11-2023 Notification of physician [facility] Start: 08-11-2023 Oxygen therapy [facility] Start: 08-11-2023 Providing care according to standard [facility] Start: 08-11-2023 Referral to water meter mechanic [facility] Start: 08-11-2023 Tobacco use cessation education [facility] Start: 08-11-2023 Electrocardiographic procedure [facility] Start: 08-11-2023 Verification routine [facility] Start: 08-11-2023 Admission procedure [facility] Start: 07-30-2023 Covid-19 Vaccine ( season) Covid-19 Vaccine ( season) [facility] Start: 07-30-2023 Influenza vaccination [facility] Start: 07-15-2023 End: 09-14-2023 Basic metabolic 2000 panel - Serum or Plasma BASIC METABOLIC PNL Lab Routine Dilated cardiomyopathy (HCC) Expected: 07/15/2023, Expires: 09/14/2023 [facility] Work Phone: Comment on above: Expected: 07/15/2023, Expires: Start: 04-29-2023 Hemoglobin A1c/Hemoglobin.total in Blood HBA1C [facility] Start: 02-17-2023 End: 09-15-2023 CBC panel - Blood by Automated count CBC Lab Routine Type 2 diabetes mellitus with hyperglycemia, with long-term current use of insulin (HCC) Primary hypertension Expected: 02/17/2023, Expires: 09/15/2023 [facility] Work Phone: Comment on above: Expected: 02/17/2023, Expires: 3 Start: 02-17-2023 End: 09-15-2023 Comprehensive metabolic 2000 panel - Serum or Plasma COMP METABOLIC PANEL Lab Routine Type 2 diabetes mellitus with hyperglycemia, with long-term current use of insulin (HCC) Primary hypertension Expected: 02/17/2023, Expires: 09/15/2023 [facility] Work Phone: Comment on above: Expected: 02/17/2023, Expires: 3 Start: 02-17-2023 End: 09-15-2023 Lipid 1996 panel - Serum or Plasma LIPID PANEL BASIC Lab Routine Type 2 diabetes mellitus with hyperglycemia, with long-term current use of insulin (HCC) Primary hypertension Expected: 02/17/2023, Expires: 09/15/2023 [facility] Work Phone: Comment on above: Expected: 02/17/2023, Expires: 3 Start: 02-17-2023 End: 09-15-2023 Thyrotropin [Units/volume] in Serum or Plasma TSH BLD Lab Routine Type 2 diabetes mellitus with hyperglycemia, with long-term current use of insulin (HCC) Primary hypertension Expected: 02/17/2023, Expires: 09/15/2023 [facility] Work Phone: Comment on above: Expected: 02/17/2023, Expires: 3 Start: 11-29-2022 DEPRESSION ASSESSMENT DEPRESSION ASSESSMENT [facility] Start: 08-19-2022 Hepatitis B screening URINE ALBUMIN:CREATININE RATIO [facility] Start: 08-19-2022 Urine screening for protein Diabetic microalbuminuria test [facility] Start: 07-30-2022 Influenza vaccination [facility] Start: 07-15-2022 Diabetic retinal exam Diabetic retinal exam [facility] Start: 12-13-2021 Depression Screen Depression Screen [facility] Start: 11-19-2021 Creatinine measurement Creatinine monitoring [facility] Start: 11-19-2021 Diabetic foot examination Diabetic foot exam [facility] [employer] Start: 11-19-2021 Lipid panel [facility] [employer] Start: 11-19-2021 Potassium monitoring Potassium monitoring [facility] [employer] Start: 11-18-2021 Hemoglobin A1c measurement A1C test (Diabetic or Prediabetic) [facility] [employer] Start: 07-30-2021 Influenza vaccination Flu vaccine (#1) [facility] [employer] Start: 05-09-2021 End: 05-09-2021 Office Visit 05/09/2021 Office Visit Cardiology Sadiq Charles DO [address] [place] [address] [phone] [facility] Start: 2021 Mammography MAMMOGRAM [facility] Start: 02-17-2021 HbA1c (Bld) [Mass fraction] A1C test (Diabetic or Prediabetic) [place], [place] Start: 12-31-2020 End: 12-31-2020 Office Visit 12/31/2020 Office Visit Endocrinology Víctor Parada, JONO [address] [address] [phone] [facility] Start: 10-12-2020 Influenza vaccination Flu vaccine (#1) [facility] [employer] Phone: Comment on above: Postponed from 07/30/2019 (Patient Refus ed) Start: 07-30-2020 Influenza vaccination Flu vaccine (#1) [place], [place] Start: 06-15-2020 Diabetic retinal exam Diabetic retinal exam [facility] [employer] Phone: Start: 06-14-2020 End: 06-14-2020 Office Visit 06/14/2020 Office Visit Cardiology Sadiq Charles DO [address] [place] [address] [phone] [facility] Start: 05-23-2020 Hepatitis B vaccine (1 of 3 - Risk 3-dose series) Hepatitis B vaccine (1 of 3 - Risk 3-dose series) [facility] Comment on above: Postponed from 2000 (Patient Refus ed) Start: 05-23-2020 Pneumococcal 0-64 years Vaccine (1 of 1 - PPSV23) Pneumococcal 0-64 years Vaccine (1 of 1 - PPSV23) [facility] Phone: Comment on above: Postponed from 1987 (Patient Refus ed) Start: 01-23-2020 End: 01-23-2020 Office Visit 01/23/2020 Office Visit Family Medicine Ama Vaughn PA-C [address] [place] [address] [phone] [facility] Start: 01-16-2020 End: 01-16-2020 Appointment 01/16/2020 Appointment Physical Therapy [facility] Start: 01-12-2020 A1C test (Diabetic or Prediabetic) A1C test (Diabetic or Prediabetic) [facility] Phone: Start: 01-09-2020 End: 01-09-2020 Office Visit [facility] Start: 01-02-2020 End: 01-02-2020 [facility] Start: 12-26-2019 End: 12-26-2019 Patient encounter procedure 12/26/2019 Appointment Physical Therapy Shasta Coe, PT [facility] Start: 12-19-2019 End: 12-19-2019 Patient encounter procedure 12/19/2019 Appointment Physical Therapy Shasta Coe, PT [facility] Start: 12-12-2019 End: 12-12-2019 Patient encounter procedure 12/12/2019 Appointment Physical [facility] Start: 12-05-2019 End: 12-05-2019 Patient encounter procedure 12/05/2019 Appointment Physical Therapy [facility] Start: 01-12-2019 Creatinine monitoring Creatinine monitoring [facility] Phone: Start: 01-12-2019 Diabetic microalbuminuria test Diabetic microalbuminuria test [facility] Phone: Start: 01-12-2019 Lipid screen Lipid screen [facility] Phone: Start: 01-12-2019 Potassium monitoring Potassium monitoring [facility] Phone: Start: 07-13-2018 [object Object] Diabetic foot exam [facility] Phone: Start: 2011 HPV TESTING HPV TESTING [facility] Start: 2011 Screening for malignant neoplasm of cervix HPV Testing [facility] Start: 2000 Hepatitis B Vaccine (1 of 3 - 19+ 3-dose series) Hepatitis B Vaccine (1 of 3 - 19+ 3-dose series) [facility] Start: 2000 Hepatitis B vaccine (1 of 3 - Risk 3-dose series) Hepatitis B vaccine (1 of 3 - Risk 3-dose series) [facility] Start: 2000 Pneumococcal vaccination Pneumococcal Vaccine (1 of 2 - PCV) [facility] Start: 1999 Anxiety Screening Anxiety Screening [facility] Start: 1999 BP Controlled (<130/80) BP Controlled (<130/80) [facility] Start: 1999 Depression Screening Depression Screening [facility] Start: 1999 Hepatitis B surface antibody level LDL CHOLESTEROL [facility] Start: 1999 Hepatitis C screening [facility] Start: 1999 HEPATITIS C SCREENING HEPATITIS C SCREENING [facility] Start: 1999 HIV SCREENING HIV SCREENING [facility] Start: 1999 HIV screening HIV Screening [facility] Start: 1993 Depression Screen Depression Screen [facility] Start: 1991 3 comp foot exam completed DIABETIC FOOT EXAM [facility] Start: 1991 Hepatitis C antibody, confirmatory test DILATED RETINAL EXAM [facility] Start: 1987 PNEUMOCOCCAL (1 - PCV) PNEUMOCOCCAL (1 - PCV) [facility] Start: 1987 Pneumococcal 0-64 years Vaccine (1 - PCV) Pneumococcal 0-64 years Vaccine (1 - PCV) [facility] Start: 1987 Pneumococcal 0-64 years Vaccine (1 of 1 - PPSV23) Pneumococcal 0-64 years Vaccine (1 of 1 - PPSV23) [facility] [place] Start: 1987 Pneumococcal 0-64 years Vaccine (1 of 2 - PPSV23) Pneumococcal 0-64 years Vaccine (1 of 2 - PPSV23) [facility] Start: 1987 Pneumococcal vaccination [facility] Start: 1986 COVID-19 Vaccine (1) COVID-19 Vaccine (1) [facility] Start: 1981 COVID-19 Vaccine (#1) COVID-19 Vaccine (#1) [facility] Start: 1981 HEPATITIS B (1 of 3 - 3-dose series) HEPATITIS B (1 of 3 - 3-dose series) [facility] Start: 1981 Hepatitis B Vaccine (1 of 3 - 3-dose series) Hepatitis B Vaccine (1 of 3 - 3-dose series) [facility] Start: 1981 Hepatitis C screening Hepatitis C screen [facility] ALBUMIN/CREAT RATIO RND UR ALBUM IN/CREAT RATIO RND UR Lab Routine Type 2 diabetes mellitus with hyperglycemia, with long-term current use of insulin (HCC) Ordered: 02/17/2023 [facility] Work Phone: Comment on above: Ordered: 02/17/2023 Amphetamines [Presen ce] in Urine by Screen method >1000 ng/mL [facility] Benzodiazepine measu rement, urine [facility] Cocaine measurement, urine [facility] End: 10-15-2024 Ct abdomen & pelvis w/contrast material CT ABD/PEL W IVCON Radiology Routine Intra-abdominal and pelvic swelling, mass and lump, unspecified site 1 Occurrences starting 09/16/2023 until 10/15/2024 [facility] Work Phone: Comment on above: 1 Occurrences starting 09/16/2023 until 10/15/2024 End: 11-08-2025 CT Chest WO contrast CT CHEST WO IVCON Radiology Routine Lung nodule 1 Occurrences starting 10/09/2024 until 11/08/2025 [facility] Work Phone: Comment on above: 1 Occurrences starting 10/09/2024 until 11/08/2025 CT Chest WO contrast CT CHEST WO IVCON Radiology Routine Lung nodule 11/16/2024 3:49 PM EST [facility] Work Phone: End: 01-05-2026 DBT Breast - bilateral screening EB SCREENING W [facility] Radiology Routine Encounter for screening mammogram for breast cancer 1 Occurrences starting 12/06/2024 until 01/05/2026 [facility] Comment on above: 1 Occurrences starting 12/06/2024 until 01/05/2026 End: 05-09-2026 DBT Breast - bilateral screening EB SCREENING [facility] Radiology Routine Encounter for screening mammogram for breast cancer 1 Occurrences starting 04/09/2025 until 05/09/2026 [facility] Work Phone: Comment on above: 1 Occurrences starting 04/09/2025 until 05/09/2026 End: 05-05-2024 Echocardiography ECHO Cardiology Routine cardiomyopathy, Hyperlipidemia, unspecified hyperlipidemia type 1 Occurrences starting 05/05/2023 until 05/05/2024 [facility] Work Phone: Comment on above: 1 Occurrences starting 05/05/2023 until 05/05/2024 [id number] [Presence] in Urine by Screen method [facility] Hemoglobin A1c/Hemoglobin.total in Blood HEMOGLOBIN A1C (POC) Lab Routine Type 2 diabetes mellitus without complication, without long-term current use of insulin (HCC) Ordered: 01/12/2024 [facility] Work Phone: Comment on above: Ordered: 01/12/2024 End: 03-26-2024 EB DIAGNOSTIC LEFT EB DIAGNOSTIC LEFT Radiology Routine Abnormal mammogram 1 Occurrences starting 02/25/2023 until 03/26/2024 [facility] Work Phone: Comment on above: 1 Occurrences starting 02/25/2023 until 03/26/2024 End: 03-18-2024 EB SCREENING EB SCREENING Radiology Routine Encounter for screening mammogram for malignant neoplasm of breast 1 Occurrences starting 02/17/2023 until 03/18/2024 [facility] Work Phone: Comment on above: 1 Occurrences starting 02/17/2023 until 03/18/2024 Methadone measuremen t, urine [facility] End: 02-10-2025 MG Breast Screening EB SCREENING Radiology Routine Encounter for screening mammogram for breast cancer 1 Occurrences starting 01/12/2024 until 02/10/2025 [facility] Work Phone: Comment on above: 1 Occurrences starting 01/12/2024 until 02/10/2025 End: 11-04-2024 Mri abdomen w/o & w/contrast material MRI LIVER WO/W IVCON Radiology Routine Liver lesion 1 Occurrences starting 10/06/2023 until 11/04/2024 [facility] Work Phone: Comment on above: 1 Occurrences starting 10/06/2023 until 11/04/2024 Patient referral [facility] Work Phone: Phencyclidine [Prese nce] in Urine [facility] Urine cannabinoid measurement [facility] Urine opiate measurement [facility] End: 10-12-2024 US ABDOMEN COMPLETE US ABDOMEN COMPLETE Radiology Routine Other ascites 1 Occurrences starting 09/13/2023 until 10/12/2024 [facility] Work Phone: Comment on above: 1 Occurrences starting 09/13/2023 until 10/12/2024 End: 03-26-2024 US BREAST LTD LEFT US BREAST LTD LEFT Radiology Routine Abnormal mammogram 1 Occurrences starting 02/25/2023 until 03/26/2024 [facility] Work Phone: Comment on above: 1 Occurrences starting 02/25/2023 until 03/26/2024 XR Foot - left AP an d Lateral and oblique XR FOOT GENERAL 3V AP/LAT/OBL LEFT Radiology Routine Pain of left heel Nodule of skin of left foot 12/06/2024 2:09 PM EST [facility] Work Phone: End: 03-18-2024 XR SHOULDER GENERAL 3V OR MORE AP/TRUE AP/OTHER RIGHT XR SHOULDER GENERAL 3V OR MORE AP/TRUE AP/OTHER RIGHT Radiology Routine Chronic right shoulder pain 1 Occurrences starting 02/17/2023 until 03/18/2024 [facility] Work Phone: Comment on above: 1 Occurrences starting 02/17/2023 until 03/18/2024 [facility] Immunizations Immunization Date Immunization Notes Care Provider Celia arredondo 04-01-2015 tetanus toxoid, redu candida diphtheria toxoid, and acellular pertussis vaccine, adsorbed Garry Rodriguez APRN.[facility] Work Phone: [facility] 11-30-2014 tetanus toxoid, redu candida diphtheria toxoid, and acellular pertussis vaccine, adsorbed Sonia Castellano PT [facility] Work Phone: Payers Date Payer Category Payer Unknown 2024 Self-pay 2022 Medicaid [id number] 2022 Unknown [id number] 2014 Unknown [id number] 2014 Unknown ERIBERTO MCCARTHY [facility] MEDICAID xxxxxxxxxxx 2014-Present [phone] CLAIMS DEPARTMENT [address] [place] [address] xxxxxxxxxxx [id number] 1981 Unknown [id number] 1981 Unknown [id number] 1981 Unknown [id number] 1981 Unknown [id number] 1981 Unknown [id number] 1981 Unknown [id number] 1981 Unknown [id number] 1981 Unknown [id number] 1981 Unknown [id number] Unknown [id number] Unknown [id number] Unknown [id number] Social History Date Type Detail Facility Start: 11-07-2019 End: 07-15-2025 Tobacco smoking status SDIS Never smoker [facility] Phone: Start: 11-07-2019 End: 07-10-2022 Alcohol intake Current non-drinker of alcohol (finding) [facility] Phone: Start: 1980 Sex Assigned At Not on file [facility] [employer] Phone: Start: 12-13-2020 End: 12-06-2024 Tobacco use and exposure Never used [facility] [place] Start: 06-30-2022 End: 07-10-2022 Exposure to SARS-CoV-2 (event) Not sure [facility] [place] Start: 08-11-2023 End: 09-09-2023 Tobacco smoking consumption unknown [facility] Start: 01-22-2021 History SDOH Financial 5 [facility] Phone: Start: 01-22-2021 History SDOH Food Worry 1 [facility] Phone: Start: 01-22-2021 History SDOH Transpo rt Med 2 [facility] Phone: Start: 02-17-2023 End: 04-30-2025 Alcohol intake Current drinker of alcohol (finding) [facility] Start: 02-17-2023 [facility] Start: 05-05-2023 End: 06-25-2023 History of Social function [facility] Work Phone: Start: 05-05-2023 End: 06-25-2023 Tobacco use panel [facility] Work Phone: Adult Depression Screening Assessment 0 [facility] Work Phone: Start: 1980 Sex Assigned At Female [facility] Sexual Orientation [facility] Sex Female (finding) [facility] NEGATED: Highlighted row [facility] Medical Equipment Procedure Code Equipment Code Equipment Origin al Text Equipment Identifier Dates [id number] Start: 12-10-2018 End: 02-17-2024 Comment on above: 1 Strip once daily. Use as instructed 1 Each once daily. U se as instructed. Preferred insurance brand. Patient checks sugar s twice daily DX E11.65 USE TO TEST BLOO D SUGAR 4 TIMES A DAYDX - DIABETES MELLITUS - 250.00 [id number] Start: 10-10-2019 by Does not appl y route. [id number] Start: 02-08-2013 Use bid [id number] Start: 03-08-2018 qid [id number] Start: 05-23-2019 USE TO TEST BLOO D SUGAR 4 TIMES A DAYDx - diabetes mellitus - 250.00 [id number] Start: 11-19-2020 qid [id number] Start: 12-05-2020 Patient checks sugars twice daily DX E11.65 [id number] Start: 02-25-2023 End: 12-04-2024 Patient checks sugars twice daily DX E11.65 [id number] Start: 02-25-2023 End: 12-04-2024 1 Strip once daily. Use as instructed [id number] Start: 02-17-2023 End: 02-25-2023 1 Each once pepe y. Use as instructed. Preferred insurance brand. [id number] Start: 02-17-2023 End: 02-25-2023 Patient checks sugars twice daily DX E11.65 [id number] Start: 12-05-2024 End: 06-08-2025 Patient checks sugars twice daily DX E11.65 [id number] Start: 12-05-2024 1 strip two time s a day. Patient checks sugars twice daily DX E11.65 [id number] Start: 06-08-2025 End: 06-08-2026 Goals Date Patient Goal Desired Activity /State Functional Status Date Assessment Result Facility 08-12-2023 Functional status Ambulates [facility] Work Phone: Mental Status Date Assessment Result Facility 07-15-2025 Cognitive function Voice/Name [facility] Work Phone: 08-12-2023 Cognitive function Voice/Name [facility] Work Phone: Clinical Notes 11-12-2011 to 07-15-2025 Telephone Encounter - Pilar Wallace MA - 06/26/2025 11:38 AM EDTTelephone Encounter - Pilar Wallace MA - 06/26/2025 11:38 AM EDT Note Date & Type Note Facility 07-15-2025 Discharge summary [facility] 07-15-2025 Radiology Diagnostic study note [facility] Imaging Services [address] [place] [address] [id number] CTA Head AND Neck W/ Contrast MR#: [id number] Acct: [id number] Name: PATT CRANE Rep #: [id number] : 1980 F 45 From: Amilcar Upton MD PCP: GEO IrahetaC Status: REG ER Study:CTA Head AND Neck W/ Contrast Date of E xam: 07/15/25 Exam# [id number] Ordering Dr: Andreia Le MD PROCEDURE: CTA HEAD AND NECK W/ CONTRAST 07/15/2025 REASON FOR EXAM: NUMBNESS LUE, LEFT LOWER FACE > 24H TECHNIQUE: CTA HEAD AND NECK W/ CONTRAST Multiplanar Sagittal and Coronal images were obtained. CONTRAST: VOLUME: mL One or more dose reduction techniques were used (e.g., Automated exposure control, adjustment of the mA and/or kV according to patient size, use of iterative reconstruction technique). RADIATION DOSE SUMMARY: CTDlvol: mGy DLP: mGycm COMPARISON: none FINDINGS: The aortic arch is seen homogenously opacified with contrast and its main arterial branches in the neck. No stenotic lesions or dissecting intimal flaps. It shows bovine configuration. Patent homogenously opacified common carotid arteries. No stenotic lesions, aneurysmal dilatation or dissecting intimal flaps. Patent carotid bulbs. Patent homogenously opacified cervical, petrous, cavernous and supraclinoid segments of the internal carotid arteries. Fenestrated cavernous segment of the left internal carotid artery is noted, variant. Patent anterior and middle cerebral arteries. Patent external carotid arteries. Dominant right vertebral artery. Variant. Otherwise, patent vertebral arteries showing homogenous contrast opacification. No stenotic lesions or dissecting intimal flaps. Patent basilar artery and its branches. Normal contrast filling is noted in all of these mentioned arteries without any stenotic lesions, occlusion, aneurysmal dilatation or arteriovenous malformation. CT/CTA Head AND Neck W/ Contrast IMPRESSION: Patent intra and extra-cranial carotid and vertebral arteries. No stenotic lesions, aneurysmal dilatation or dissecting intimal flaps. Reading Location: [place] [address] CC: PROCUREMENT COST COORDINATOR-C Garry Rodriguez; Dr. Fernando Le MD ~ Clinical Supervisor: Signed [facility] 07-15-2025 Radiology Diagnostic study note [facility] Imaging Services [address] [place] [id number] Brain/Head without Contrast MR#: [id number] Acct: [id number] Name: PATT CRANE Rep #: [id number] : 1980 F 45 From: Amilcar Upton MD PCP: Garry Rodriguez, PROCUREMENT COST COORDINATOR-C Status: REG ER Study:Brain/Head without Contrast Date of Exa m: 07/15/25 Exam# [id number] Ordering Dr: Andreia Le MD PROCEDURE: BRAIN/HEAD WITHOUT CONTRAST 07/15/2025 REASON FOR EXAM: NUMBNESS LUE, LEFT LOWER FACE > 24H TECHNIQUE: BRAIN/HEAD WITHOUT CONTRAST Coronal and Sagittal reconstruction series were provided. One or more dose reduction techniques were used (e.g., Automated exposure control, adjustment of the mA and/or kV according to patient size, use of iterative reconstruction technique. RADIATION DOSE SUMMARY: CTDlvol:mGy DLP: mGycm COMPARISON: none FINDINGS: The visualized brain parenchyma shows normal appearance. No focal parenchymal abnormalities are demonstrated. Mcmahon-white matter differentiation is maintained. Normal CT appearance of the posterior fossa structures. No intracerebral or extra-axial hemorrhage. No midline shifts or deformity. Normal size and configuration of the cerebral ventricles. No definite calvarial fractures. The osseous structures in the skull base are unremarkable. Paranasal sinuses are unremarkable. CT/Brain/Head without Contrast IMPRESSION: No intracerebral or extra-axial hemorrhage. No acute cerebrovascular insult. If there is high clinical suspicion, correlate to MRI Unremarkable non-enhanced CT study for the brain. Reading Location: [place] [address] CC: ODALYS Rodriguez; Dr. Fernando Le MD ~ Clinical Supervisor: Signed [facility] 06-26-2025 Telephone encounter Note patient electronically requesting refills as follows: Last seen 04/09/25. Requested Prescriptions Pending Prescriptions Disp Refills lisinopril (ZESTRIL) 20 mg tablet 180 tablet Sig: Take 1 tablet by mouth two times a day. Please review and advise. Pilar Wallace MA [facility] 06-26-2025 Miscellaneous Notes patient electronically requesting refills as follows: Last seen 04/09/25. Requested Prescriptions Pending Prescriptions Disp Refills lisinopril (ZESTRIL) 20 mg tablet 180 tablet Sig: Take 1 tablet by mouth two times a day. Please review and advise. Pilar Wallace MA documented in this encounter [facility] 06-20-2025 Evaluation note Diagnosis Onset Date Resolution Peripartum cardiomyopathy, antepartum condition or complication acute June 20, 2025 8:06am HTN (hypertension) chronic May 302024 8:06am Essential hypertension acute Au veronica 2024 3:59am Facial paresthesia acute July 15, 2025 3:59am Hyperglycemia due to type 2 diabetes mellitus acute July 15, 2025 3:59am Obesity (BMI 30-39.9) acute Aug ust 2024 3:59am Paresthesia of left arm acute A ugust 2024 3:59am TIA (transient ischemic attack) acute July 15 3:59am [facility] Work Phone: 1(341) 231-607807-23-2025 Progress [facility] [address] [place], [place] [address] OFFICE VISIT Date of Service: 06/20/25 MR#: [id number] Acct: [id number] Name: PATT CRANE Rep #: [id number] : 1980 Provider: ODALYS Lynne Age/Sex: 45/F [place] [facility] [place] Status: Signed HPI HPI History of Present Illness Details: This is a 45-year-old lady who presents to the office today for a cardiovascularfollow up visit. She had presented to the hospital in July of 2023 with shortness of breath and a non-ST elevationmyocardial infarction. This was likely secondary to demand ischemia from elevated blood pressure aswell as a cardiomyopathy. Coronary artery did not [...] cuff Intake Visit Reasons: 6 M FU Plant Propagator Required: No Is patient in pain?: No [...] EC05/17/2024-sinus rhythm with right bundle branch block [place] [employer] Functional Class: 1 ACC/AHA [...] system and there may be incorrect words, spellingor punctuation that were not noted when reviewing the office note prior to saving. Portions of this documentation were copied and pasted from previous office visitnotes to provide a cohesive continuity of the history. The note has been reviewed, edited, and updated, as necessary. Follow Up: Keep as is (DIRECTOR OF ANNUAL GIVING) Coding Level of Care Code Off vis,est,level [...] Cardiac Ejection fraction %: 50 06/20/25 0844 P PROCUREMENT COST COORDINATOR-C> Date _ Keenan Lynne NP PROCUREMENT COST COORDINATOR-C Sreedhar Signature: Date (if applicable) CC: GRANT-Liliane Rodriguez ~ [facility]07-23-2025 Progress note Author Keenan Lynne [facility] Note Date/Time June 20, 2025 8:44 am [facility] [address] [place] [address] OFFICE VISIT Date of Service: 06/20/25 MR#: [id number] Acct: [id number] Name: PATT CRANE Rep #: [id number] : 1980 Provider: ODALYS Lynne Age/Sex: 45/F Location: [facility] [place] Status: Signed HPI HPI History of Present [...] cuff Intake Visit Reasons: 6 M FU Plant Propagator Required: No Is patient in pain?: No [...] EC05/17/2024-sinus rhythm with right bundle branch block [place] [employer] Functional Class: 1 ACC/AHA [...] as necessary. Follow Up: Keep as is (DIRECTOR OF ANNUAL GIVING) Coding Level of Care Code Off vis,est,level [...] Date (if applicable) CC: ODALYS Rodriguez ~ [facility] Work Phone: 1(261) 394-269707-03-2025 NoteHNO ID: [id number] Author: FEDERICO AMBRIZ PT Service: ? Author [...] T-score by a minimum 5 points. Improved [place] in home exercise program. Currently met Patient [...] Patient to be seen for Therapeutic exercise (65638), Neuromuscular re-education (68559), Therapeutic activities (07943), Manual therapy (45323), Self-long term management (83929), Gait Training (36464), Patient/Family/Caregiver Education, Body Mechanics Training PLAN FOR [...] TherapyTreatment Minutes: 15 Skilled (more content not included)...[facility]07-03-2025 History of Present illness Narrative* Federico Ambriz, [...] T-score by a minimum 5 points. Improved [place] in home exercise program. Currently met Patient [...] Patient to be seen for Therapeutic exercise (68793), Neuromuscular re-education (85437), Therapeutic activities (25342), Manual therapy (89493), Self-long term management (04025), Gait Training (36731), Patient/Family/Caregiver Education, Body Mechanics Training PLAN FOR [...] Ambriz PT - 05/30/2025 8:48 AM EDT Program_ID:[id number] Access Code: [email or web address] URL: [email or web address] Date: 05-30-2025 Prepared By: Federico Ambriz Program [...] sets - 10 reps documented in this encounterPark[facility]-2025 NoteHNO ID: [id number] Author: EMILIA GRIFFITHS, ? Service: ? 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 - Employer is [...] 09/05/2012 NSTEMI (non-ST elevated myocardial infarction) ([facility]) 07/2023 Current Outpatient Medications Medication Sig Dispense [...] using boot as symptoms improve Recording using The Guild software for draft documentation of the visit was discussed with the patient/authorized graphic art sales representative; all questions welcomed and answered. 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 - Employer is [...] 09/05/2012 NSTEMI (non-ST elevated myocardial infarction) ([facility]) 07/2023 Current Outpatient Medications Medication Sig Dispense [...] using boot as symptoms improve Recording using The Guild software for draft documentation of the visit was discussed with the patient/authorized graphic art sales representative; all questions welcomed and answered. Patient/authorized graphic art sales representative agreed to proceed Emilia Griffiths DPM [...] long time. EBENEZER 03/26/25 documented in this encounterPark[facility]06-[facility]-20[facility] Instructions* Patient Instructions* Emilia Griffiths - [...] time on their feet, such as nurses, vp publisher development/waiters, andmail carriers, often experience plantar fasciitis. Athletes [...] some individuals to development of plantar fasciitis (spec ifically, over pronation of the subtalar joint). Contributing [...] choose the one that fits the best. [place] with your athletic shoes to find a [...] and repeat the exercise. documented in this encounterParkview Health [facility]06-02-2025 NoteHNO ID: [id number] Author: PIPER WILLIAMSON, RN Service: ? Author [...] to be out walking a long time. [facility] 03/26/25[facility]05-14-2025 NoteHNO ID: [id number] Author: FEDERICO AMBRIZ, PT Service: ? Author Type: Physical Therapist [...] increase T-score by a minimum 5 points. [place] in home exercise program. Patient will decrease [...] Planned: 6 Planned Treatment Interventions: Therapeutic exercise (65712), Neuromuscular re-education (55460), Manual therapy (49540), Therapeutic activities (11460), Self-long term management (02856), Gait Training (96639), Patient/Family/Caregiver Education, Body Mechanics Training PLAN FOR [...] Demonstration TREATMENT: PT Treatme (more content not included)...[facility]05-14-2025 History of Present illness Narrative* Federico Ambriz, [...] demands . The patient will benefit from [facility] therapy services to meet the goals established for this plan of care as noted below. Goals for Episode of Care: established 04/11/25 Patient reported outcome of self-efficacy will increase T-score by a minimum 5 points. [place] in home exercise program. Patient will decrease [...] Planned: 6 Planned Treatment Interventions: Therapeutic exercise (68968), Neuromuscular re- education (57993), Manual therapy (51476), Therapeutic activities (68462), Self- long term management (66921), Gait Training (28280), Patient/Family/Caregiver Education, Body Mechanics Training PLAN FOR [...] Ambriz PT - 04/11/2025 11:45 AM EDT Program_ID:[id number] Access Code: [email or web address] URL: [email or web address] Date: 04-11-2025 Prepared By: Federico Ambriz Program [...] sets - 20 reps documented in this encounterParkview [facility]05-13-2025 Telephone encounter Note * Telephone Encounter - Akshat Quesada MA - 04/10/2025 9:02 AM EDT Faxed. Placed in immediate scanning. Akshat Quesada MA [facility]05-13-2025 Miscellaneous Notes* Telephone Encounter - Akshat [...] Dr Blanco's office? TY! documented in this encounterParkview Health [facility]05-13-2025 Telephone encounter Note * Telephone Encounter - Garry Rodriguez APRN.CNP - 04/10/2025 8:57 AM EDT Please process work forms thank you. Garry Rodriguez APRN.CNP [facility]05-13-2025 Telephone encounter Note* Telephone Encounter - [...] boot for extended periods causes her unbearable pain (light duty). Please let us know what restrictions you would like us to place in the note and we can write it andsend it to her mychart. [facility]05-13-2025 Miscellaneous Notes* Telephone Encounter - Piper [...] boot for extended periods causes her unbearable pain (light duty). 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 Josie Goyal LPN documented in this encounterParkview Health [facility]05-12-2025 NoteHNO ID: [id number] Author: GARRY RODRIGUEZ APRN.JAVA DEVELOPER Service: ? Author Type: Nurse Practitioner Type: Progress Notes Filed: 04/09/2025 16:17 Note Text: Subjective The patient consented to the use of The Guild software for draft documentation of the visit consistent with [facility]?s Notice of Privacy Practices. CHICHO Beltre [...] issues. Patt's Jardiance is prescribed by her water meter mechanic, Keenan JARVIS, due to her history of cardiomyopathy, CVA, and NSTEMI. Her most recent visit with cardiology was on December 13, 2024. She experienced an NSTEMI in July 2023, with a cardiac catheterization revealing no obstructive stenosis and an ejection fraction of 20%. The MS was likely secondary to demand ischemia from [...] and gait problem. Sk (more content not included)...[facility]05-12-2025 History of Present illness Narrative* Garry Rodriguez APRN.JAVA DEVELOPER - 04/09/2025 3:48 PM EDT Subjective The patient consented to the use of PartSimple AI software for draft documentation of the visit consistent with [facility] s Notice of Privacy Practices. CHICHO Beltre is [...] issues. Patt's Jardiance is prescribed by her water meter mechanic, Keenan JARVIS, due to her history of cardiomyopathy, CVA, and NSTEMI. Her most recent visit with cardiology was on December 13, 2024. She experienced an NSTEMI in July 2023, with a cardiac catheterization revealing no obstructive stenosis and an ejection fraction of 20%. The MS was likely secondary to demand ischemia from [...] HENT: Head: Normocephalic and atraumatic. Mouth/Throat: Lips: [place]. Eyes: General: Lids are normal. Extraocular Movements: [...] normal. Behavior is cooperative. Labs: Latest Ref Rn 01/12/2024 12/06/2024 04/09/2025 Hemoglobin A1C (POCT) 4.3 [...] blood pressure and cardiomyopathy. Current medications include gtrjbqrutg09 mg BID, Jardiance 25 mg daily, Lasix 40 mg daily, and lisinopril 20 mg BID. - Continue current cardiac medications. - Follow-up with water meter mechanic Dr. Blanco in May. 3. Essential (primary) hypertension (I10) Blood pressure today was elevated. Lisinopril was increased to 20 mg BID in November by water meter mechanic. - Contact cardiology office to report current [...] breast cancer (Z12.31) Ordered mammogram. 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 Josie Goyal LPN [facility]05-08-2025 Telephone encounter Note* Telephone Encounter - Garry Rodriguez APRN.CNP - 04/05/2025 8:33 PM EDT Can we please request last OV note from Dr Blanco's office? TY! [facility]05-08-2025 Telephone encounter Note* Telephone Encounter - Carmel Dennison MA - 04/05/2025 4:34 PM EDT Patient is informed Carmel Dennison MA [facility]05-08-2025 Miscellaneous Notes* Telephone Encounter - Carmel [...] herschedule. Garry Rodriguez APRN.CNP documented in this encounterParkview Health [facility]05-08-2025 Telephone encounter Note * Telephone Encounter - Carmel Dennison MA - 04/05/2025 4:33 PM EDT ----- Message from Garry Rodriguez APRN.JAVA DEVELOPER sent at 04/04/2025 12:28 AM EDT ----- Labs are normal besides elevated glucose. She is due for diabetes visit in mid- March, please have herschedule. Garry Rodriguez APRN.JAVA DEVELOPER [facility]04-30-2025 NoteHNO ID: [id number] Author: EMILIA GRIFFITHS, ? Service: ? Author [...] and 10.7% in July. Attestation Recording using The Guild software for draft documentation of the visit was discussed with the patient/authorized graphic art sales representative; all questions welcomed and answered. Patient/authorized graphic art sales representative agreed to proceed Emilia Griffiths [facility]04-30-2025 History of Present illness Narrative* Emilia [...] and 10.7% in July. Attestation Recording using The Guild software for draft documentation of the visit was discussed with the patient/authorized graphic art sales representative; all questions welcomed and answered. Patient/authorized graphic art sales representative agreed to proceed Emilia Griffiths DPM [...] Numbness Kristyn Coffey LPN documented in this encounterParkview Health [facility]04-28-2025 Instructions* Patient Instructions* Emilia Griffiths - [...] time on their feet, such as nurses, vp publisher development/waiters, andmail carriers, often experience plantar fasciitis. Athletes [...] some individuals to development of plantar fasciitis (spec ifically, over pronation of the subtalar joint). Contributing [...] choose the one that fits the best. [place] with your athletic shoes to find a [...] MRI may be considered. documented in this encounterParkview Health [facility] Hospital04-28-2025 NoteHNO ID: [id number] Author: KRISTYN COFFEY LPN Service: ? Author [...] - Pain, Established Patient, Follow Up, Numbness [facility]-2025 NoteHNO ID: [id number] Author: KRISTYN COFFEY LPN Service: ? Author Type: LICENSED NURSE Type: Progress Notes Filed: 01/09/2025 15:58 Note Text: Per Dr. Griffiths, Patt was provided with powerstep gel inserts, size 9, and instructed/educated in its application, wear, and care. All questions were answered, and patient was able to demonstrate competence with the necessary skills to utilize the above equipment. Kristyn Coffey [facility] History of Present illness Narrative* Kristyn Coffey LPN - 01/09/2025 3:[address] Griffiths Patt was provided with powerstep gel inserts, size 9, and instructed/educated in its application, wear, and care. All questions were answered, and patient was able to demonstrate competence with the necessary skills to utilize the above equipment. 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 Emilia Griffiths DPM Podiatry [address] [facility] [address] Dept: [phone] Dept * Kristyn Coffey LPN - 01/09/2025 3:33 PM EST AMB ROOMING INTAKE FLOWSHEET DATA Pain Pain Level: 10 Pain Location: Foot-Left Description: Stabbing, Throbbing Duration Amount of Time: 6 Duration Units: Months Frequency: Intermittent Intervention/Comfort measure: Reposition, Relaxation Patient presents with: Left Foot - New, Pain Kristyn Coffey LPN documented in this encounterParkview Health [facility]02-11-2025 Instructions* Patient Instructions* Emilia Griffiths - [...] time on their feet, such as nurses, vp publisher development/waiters, andmail carriers, often experience plantar fasciitis. Athletes [...] some individuals to development of plantar fasciitis (spec ifically, over pronation of the subtalar joint). Contributing [...] choose the one that fits the best. [place] with your athletic shoes to find a [...] Powerstep Original Full length. Can purchase at [facility] Runner and boots,shoes and more here in [place], [employer] in [place] or [place]. Also can find in [place] in [facility]. Powersteps can also be purchased online, starting [...] everything fits well together documented in this encounterParkview Health [facility]02-11-2025 NoteHNO ID: [id number] Author: EMILIA GRIFFITHS, ? Service: ? Author [...] 01/12/2024 9.4 08/20/2023 10.7 PCP: Garry Rodriguez APRN.JAVA DEVELOPER PAST MEDICAL HISTORY Diagnosis Date cardiomyopathy, 09/05/2012 [...] MPJ is full when (more content not included)...[facility] 01-09-2025 NoteHNO ID: [id number] Author: KRISTYN COFFEY LPN Service: ? Author Type: LICENSED NURSE Type: Progress Notes Filed: 01/09/2025 15:58 Note Text: AMB ROOMING INTAKE FLOWSHEET DATA Pain Pain Level: 10 Pain Location: Foot-Left Description: Stabbing, Throbbing Duration Amount of Time: 6 Duration Units: Months Frequency: Intermittent Intervention/Comfort measure: Reposition, Relaxation Patient presents with: Left Foot - New, Pain [facility]01-[facility] Telephone encounter Note* Telephone Encounter - Akshat Quesada MA - 12/12/2024 7:17 AM EST Received fax that ozempic was denied. Placed in red folder to review. Akshat Quesada MA [facility]01-14-2025 Miscellaneous Notes* Telephone Encounter - Akshat Quesada MA - 12/12/2024 7:17 AM EST Received fax that niya was denied. Placed in red folder to review. Aksaht Quesada MA documented in this encounterParkview Health [facility]01-13-2025 Telephone encounter Note * Telephone Encounter - Carmel Dennison MA - 12/11/2024 8:41 AM EST Left message informing patient, phone number to reach the office was left for any questions or concerns. Carmel Dennison MA [facility]01-13-2025 Miscellaneous Notes* Telephone Encounter - Carmel Dennison MA - 12/11/2024 8:41 AM EST Left message informing patient, phone number to reach the office was left for any questions or concerns. Carmel Dennison MA * Telephone Encounter - Akshat Quesada MA - 12/11/2024 7:24 AM EST ----- Message from Garry Rodriguez APRN.JAVA DEVELOPER sent at 12/10/2024 9:25 AM EST ----- Please notify patient results are normal. Thank you. Garry Rodriguez APRN.CNP documented in this encounterParkview Health [facility] Hospital01-13-2025 Telephone encounter Note * Telephone Encounter - Akshat Quesada MA - 12/11/2024 7:24 AM EST ----- Message from Garry Rodriguez APRN.CNP sent at 12/10/2024 9:25 AM EST ----- Please notify patient results are normal. Thank you. Garry Rodriguez APRN.JAVA DEVELOPER [facility]01-09-2025 Telephone encounter Note* Telephone Encounter - Akshat Quesada MA - 12/07/2024 7:19 AM EST Received fax from [employer] stating caresource denied ozempic. Please advise. Akshat Quesada MA [facility]01-09-2025 Miscellaneous Notes* Telephone Encounter - Akshat Quesada MA - 12/07/2024 7:19 AM EST Received fax from [employer] stating caresource denied ozempic. Please advise. Akshat Quesada MA documented in this encounterParkview Health [facility] Hospital01-08-2025 NoteHNO ID: [id number] Author: GARRY RODRIGUEZ APRN.JAVA DEVELOPER Service: ? Author Type: Nurse Practitioner Type: [...] screening - Dr Briones is her OBGYN [place] Colorectal cancer screening - na Osteoporosis screening [...] Jardiance for cardiomyopathy, she continues care with [facility] cardiology - Dr Blanco Has [...] 09/05/2012 NSTEMI (non-ST elevated myocardial infarction) ([facility]) 07/2023 PAST SURGICAL HISTORY Procedure Laterality Date [...] Body: Right upper body (more content not included)...[facility] 12-06-2024 History of Present illness Narrative* Garry Rodriguez APRN.JAVA DEVELOPER - 12/06/2024 1:16 PM EST Subjective Patt [...] screening - Dr Briones is her OBGYN [place] Colorectal cancer screening - na Osteoporosis screening [...] Jardiance for cardiomyopathy, she continues care with [facility] cardiology - Dr Blanco Has [...] 09/05/2012 NSTEMI (non-ST elevated myocardial infarction) ([facility]) 07/2023 PAST SURGICAL HISTORY Procedure Laterality Date [...] up for mammogram, yearly mammogram recommended - [facility] SCREEN[facility] W LINDEN 6. History of cardiomyopathy - ICD9: V12.59, ICD10: Z86.79 - 2010 Continue care with cardiology Dr Francis On Jardiance - increase to 25 mg once a day 7. Screening for cervical cancer - ICD9: V76.2, ICD10: Z12.4 Patient would like new referral for [facility] - CONSULT TO [facility] 8. Pain of left heel - ICD9: [...] SCREENING Garry Rodriguez APRN.[place] documented in this encounterParkview Health Bryan Hospital01-06-2025 Telephone encounter Note * Telephone Encounter [...] Please review and advise. Akshat Quesada MA [facility]01-06-2025 Miscellaneous Notes* Telephone Encounter - Akshat [...] advise. Akshat Quesada MA documented in this encounterParkview Health Bryan Hospital12-19-2024 History of Present illness Narrative* Josie Parish RT(R) - 11/16/2024 3:40 PM EST Radiology [...] PATIENT PRESENTS WITH AN IMPLANTABLE OR ATTACHED HEALTH CARE ANALYST: No RADIOLOGY DEPARTMENT: CT; Exam(s) Completed: Chest PERIPHERAL IV DATA: Not applicable SIGNED BY: RT Jaquan(R) November 16, 2024 3:50 PM documented in this encounterParkview Health Bryan Hospital12-19-2024 NoteHNO ID: [id number] Author: JOSIE PARISH RT(Andrew) Service: ? Author Type: Count Room Clerk Type: Progress Notes Filed: 11/16/2024 15:50 Note [...] PATIENT PRESENTS WITH AN IMPLANTABLE OR ATTACHED HEALTH CARE ANALYST: No RADIOLOGY DEPARTMENT: CT; Exam(s) Completed: Chest PERIPHERAL IV DATA: Not applicable SIGNED BY: RT Jaquan(R) November 16, 2024 3:50 [facility]11-11-2024 Telephone encounter Note* Telephone Encounter - Maraosman AkshatJOHN - 10/09/2024 2:35 PM EST Patient aware. Akshat JOHN Quesada [facility]11-11-2024 Miscellaneous Notes* Telephone Encounter - Maraosman AkshatJOHN - 10/09/2024 2:35 PM EST Patient aware. Akshat JOHN Quesada * Telephone Encounter - Garry Rodriguez APRN.CNP - 10/09/2024 2:22 PM EST Thank you. Please see orders. Garry Rodriguez APRN.CNP * Telephone Encounter - Carmel Dennison MA - 10/09/2024 7:42 AM EST ----- Message from Pilar Sultana MA sent at 10/07/2023 10:14 AM EST ----- Patient due for [address] chest to monitor small lung nodule. Pilar Wallace MA documented in this encounterParkview Health Bryan Hospital11-11-2024 Telephone encounter Note * Telephone Encounter - Garry Rodriguez APRN.CNP - 10/09/2024 2:22 PM EST Thank you. Please see orders. Garry Rodriguez APRN.CNP [facility]11-11-2024 Telephone encounter Note* Telephone Encounter - Carmel Dennison MA - 10/09/2024 7:42 AM EST ----- Message from Pilar Sultana MA sent at 10/07/2023 10:14 AM EST ----- Patient due for [address] chest to monitor small lung nodule. Pilar Wallace MA [facility]04-23-2024 Telephone encounter Note* Telephone Encounter - Garry Rodriguez APRN.CNP - 03/21/2024 5:04 PM EDT Thank you, we will continue Trulicity 3 mg once a week. Garry Rodriguez APRN.CNP [facility]04-23-2024 Miscellaneous Notes* Telephone Encounter - Garry [...] Quesada MA - 03/20/2024 4:59 PM EDT Lm on pt. Vm to contact office and [...] Trulicity to 4 mg? documented in this encounterParkview Health Bryan Hospital04-23-2024 Telephone encounter Note * Telephone Encounter - Akshat Quesada MA - 03/21/2024 3:14 PM EDT Patient states the dose she is taking now has made her sugar drop in the 70's. She got really dizzylast week. Took Trulicity dose yesterday and did not have this happen. She thinks she should keep the same dose . Please advise. Akshat Quesada MA [facility]04-22-2024 Telephone encounter Note* Telephone Encounter - Akshat Quesada MA - 03/20/2024 4:59 PM EDT Lm on pt. Vm to contact office and let us know. Akshat Quesada MA [facility]04-22-2024 Telephone encounter Note* Telephone Encounter - Garry Rodriguez APRN.CNP - 03/20/2024 4:54 PM EDT Please call patient and see how she's feeling on Trulicity. We can increase her dose as long as sheisn't feeling too nauseated or constipated. Garry Rodriguez APRN.CNP [facility]04-22-2024 Telephone encounter Note* Telephone Encounter - Garry Rodriguez APRN.CNP - 03/20/2024 4:53 PM EDT ----- Message from Garry Rodriguez APRN.CNP sent at 02/16/2024 5:30 PM EDT ----- Increase Trulicity to 4 mg? [facility]03-20-[facility]24 Note ORIGINAL EXAMINATION: Ultrasound pelvis, 02/16/2024 [...] Sign Date: 02/16/2024 3:21:09 PM Ordering Provider: [facility]02-14-2024 Miscellaneous Notes* Telephone Encounter - Evelin Saunders - 01/12/2024 11:[address] ABD/PEL results faxed to Dr Gabriel. Faxed to [phone] documented in this encounterParkview Health Bryan Hospital02-14-2024 History of Present illness Narrative* Garry Rodriguez, SHIRLENE.JAVA DEVELOPER - 01/12/2024 9:58 AM EST Subjective Patt [...] pelvic ascites She has been seeing a [facility] in [place]. Dr Kristyn Briones Gets pelvic pain, worse [...] of focal fatty infiltration which has resolved. Clinical Supervisor: HODA Transcribe Date/Time: Dec 29 2023 3:43P [...] (primary diagnosis) - Uncontrolled - Increase dulaglutide (Trulicity) to 1.5 mg weekly Will call in [...] up for mammogram, yearly mammogram recommended - [facility] SCRE[facility] 3. Chronic right shoulder pain - ICD9: 719.41, 338.29, ICD10: M25.511, G89.29 Referral placed for PT Had a course of meloxicam - no change X-ray was normal January 2023 - CONSULT TO PHYSICAL THERAPY 4. Fatty liver - ICD9: 571.8, ICD10: K76.0 Low fat diet, avoid NSAIDs Garry Rodriguez APRN.[place] documented in this encounterParkview Health Bryan Hospital02-12-2024 Miscellaneous Notes* Telephone Encounter - Nena Chirinos - 01/10/2024 8:13 AM EST The patient has been scheduled on 01/12/24 at 10:20 am. documented in this encounterParkview Health Bryan Hospital11-09-2023 Miscellaneous Notes* Telephone Encounter - Pilar Wallace MA - 10/07/2023 10:13 AM EST Patient informed of results, recommendations and additional imaging order. Patient states she has an appointment with a roof tile layer in [place] at the end of the month and [...] bleeding, bloating. I want her to see [facility] - does she already have one or does she need a referral? There was also a very small lung nodule - needs CT chest in 1 year, please add a reminder. Garry Rodriguez APRN.CNP documented in this encounterParkview Health Bryan Hospital11-08-2023 History of Present illness Narrative* Josie Parish RT(R) - 10/06/2023 10:20 AM EST Radiology [...] 2023 TIME: 4:17 PM documented in this encounterParkview Health Bryan Hospital10-19-2023 Miscellaneous Notes* Telephone Encounter - Pilar [...] message stating she received a message from [facility] regarding following up with her pcp regarding her recent imaging results and an actionable finding. Please advise. Pilar Wallace MA documented in this encounterParkview Health Bryan Hospital10-18-2023 History of Present illness Narrative* Gardenia [...] 15, 2023 9:00 AM documented in this encounterParkview Health Bryan Hospital10-13-2023 Miscellaneous Notes* Telephone Encounter - Akshat Quesada MA - 09/10/2023 10:48 AM EDT Pt aware. Reminder placed. Akshat Quesada MA * Telephone Encounter - Akshat Quesada MA - 09/10/2023 8:27 AM EDT ----- Message from Garry Rodriguez APRN.CNP sent at 09/09/2023 10:58 PM EDT ----- Mildly elevated liver function, recheck in 3 months. Other labs WNL. Garry Rodriguez APRN.CNP documented in this encounterParkview Health Bryan Hospital10-11-2023 Miscellaneous Notes* Telephone Encounter - Iwona [...] Thanks, Tone Espino MD documented in this encounterParkview Health Bryan Hospital09-14-2023 Discharge summary Author Aj Colon [facility] August 12, 2023 3:58pm Note Date/Time August 12, 2023 3:57pm [facility] Medical Records Department [address] [place] [address] Discharge Summary 08/12/23 1549 MR#: [id number] Acct: [id number] Name: PATT CRANE Rep #:[id number] : 1980 43 From: Aj mina MD PCP: ODALYS Iraheta Status:ADM IN Location: [place] [address] Providers Date of Admission: 08/11/23 Primary Care [...] % (Auto) 63.5, Lymph % (Auto) 26.6, Graham % (Auto) 7.6, Eos % (Auto) 1.3, [...] Clarity Clear, Urine pH 6.0, Ur Specific [place] 1.015, Urine Protein 30 H, Urine Glucose [...] (MDRD) Non-Af 72, BUN/Creatinine Ratio 7.7 L, [id number] H, Calcium 8.3 L, Triglycerides 99, Cholesterol 115, LDL Cholesterol 47, VLDL Cholesterol 20, HDL Cholesterol 48 08/12/23 12:36: POC Glucose 287 H Radiography Diagnostic Testing: Radiology Impression Chest X-Ray 08/11/23 18:20 IMPRESSION: No acute cardiopulmonary pathology Electronically Signed: Mateus Reynolds MD at 18:31 EDT Reading Location ID and State: [facility] / [place] Tel , Service support , Chest CTA 08/11/23 18:45 [...] Self Care Charges/Coding Visit Charges Inpatient E&M: 42176 Disch Hosp >30min 08/12/23 1558 <Electronically signed by Aj Colon MD> Cosigner Signature (if applicable): CC: ODALYS Rodrigeuz; Dr. Aj Colon MD~ Signed [facility] Work Phone: 1(280) 757-191409-14-2023 Discharge summary Author Aj Colon [facility] August 12, 2023 3:49pm Note Date/Time August 12, 2023 3:49pm [facility] Medical Records Department [address] [place] [address] Instructions for Home/Discharge Instructions 08/12/23 1546 MR#: [id number] Acct: [id number] Name: PATT CRANE Rep #:[id number] : 1980 43 From: Aj mina MD [...] 3:35 pm NOT,DEFINED [Non-Staff] - Garry Rodriguez NP PROCUREMENT COST COORDINATOR-C [Primary Care Provider] - Within 1 Week Disposition Disposition (needs filled in before D/C Order can be placed): Home, Self Care 08/12/23 1549<Electronically signed by Aj Colon MD>Aj Colon MD CC: PROCUREMENT COST COORDINATOR-C Garry Rodriguez; Dr. Damian Blanco MD; Dr. Ha Echevarria MD ~ Signed [facility] Work Phone: 1(850) 992-516409-14-2023 Evaluation note* Diagnosis Onset Date Resolution Status Elevated d-dimer acute Hypokalemia acute Lightheadedness acute Non-STEMI (non-ST elevated m yocardial infarction) August 12, 2023 acute Peripartum cardiomyopathy, a ntepartum condition or complication acute HTN (hypertension) [facility] Work Phone: 1(291) 402-358809-14-2023 Evaluation note* Diagnosis Onset Date Resolution Status Elevated d-dimer acute Hypokalemia acute Lightheadedness acute Non-STEMI (non-ST elevated m yocardial infarction) August 12, 2023 acute Peripartum cardiomyopathy, a ntepartum condition or complication acute HTN (hypertension) chronic Idiopathic cardiomyopathy August 12, 2023 acute Peripartum cardiomyopathy, a ntepartum condition or complication acute HTN (hypertension) [facility] Work Phone: 1(556) 317-310609-14-2023 Consult note [facility] August 12, 2023 8:41am Note Date/Time August 12, 2023 7:20am [facility] Medical Records Department [address] [place] [address] Consultation - Cardiology 08/12/23 0715 MR#: [id number] Acct: [id number] Name: PATT CRANE Rep #:[id number] : 1980 43 From: Damian Blanco MD PCP: ODALYS Iraheta Status:ADM IN Location: [place] [address] Assessment & Plan Assessment/Plan (1) Non-STEMI (non-ST [...] also noted to be elevated on admission. [facility] Medical History (Updated 08/12/23 @ 07:18 by [...] % (Auto) 63.5, Lymph % (Auto) 26.6, Graham % (Auto) 7.6, Eos % (Auto) 1.3, [...] Clarity Clear, Urine pH 6.0, Ur Specific [place] 1.015, Urine Protein 30 H, Urine Glucose [...] % (Auto) 63.5, Lymph % (Auto) 26.6, Graham % (Auto) 7.6, Eos % (Auto) 1.3, [...] Clarity Clear, Urine pH 6.0, Ur Specific [place] 1.015, Urine Protein 30 H, Urine Glucose [...] 18:31 EDT Reading Location ID and State: [facility] / [place] Tel [phone], Service support , Chest CTA 08/11/23 18:45 IMPRESSION: Cardiomegaly and minor atelectasis within the dependent portion of the lungs with tiny right pleural effusion. No evidence for pulmonary embolus Electronically Signed: Mateus Reynolds MD at 19:27 EDT , 08/12/23 0841 <Electronically signed by Damian Blanco MD> Cosigner Signature (if applicable): CC: ODALYS Rodriguez; Dr. Damian Blacno MD; Dr. Ha Echevarria MD~ Signed [facility] Work Phone: 1(723) 350-436409-14-2023 History and physical note Author Ha Echevarria [facility] August 12, 2023 5:21am Note Date/Time August 11, 2023 8:10pm [facility] Medical Records Department [address] [place] [address] H&P Exam - Hospitalist 08/11/232009 MR#: [id number] Acct: [id number] Name: PATT CRANE Rep #:[id number] : 1980 43 From: Ha Echevarria MD PCP: ODALYS Iraheta Status:ADM IN Location: [place] [id number]- [id number] HPI - General General Date of Admission: [...] of 60. Also her mother had CVA. [facility] Medical History delivery delivered Diabetes HTN (hypertension) [...] % (Auto) 63.5, Lymph % (Auto) 26.6, Graham % (Auto) 7.6, Eos % (Auto) 1.3, [...] Clarity Clear, Urine pH 6.0, Ur Specific [place] 1.015, Urine Protein 30 H, Urine Glucose [...] Signed: Mateus Reynolds MD at 19:27 EDT Reading Location ID and State: [facility] / [place] Tel , Service support , Assessment & Plan Assessment/Plan (1) Non-STEMI [...] Patient with hyperglycemia on presentation On home [facility]. Continue correction scale insulin ordered. DVT prophylaxis Indicated as patient is on heparin drip. Time spent in the patient's overall evaluation,decision-making process, review of diagnostic data, adjustment of management, discussion with other providers, nursing and ancillary staff involved in patient's care documentation, 65 minutes. Charges/Coding Visit Charges Inpatient E&M: 78966 Init Hosp 08/12/23 0521 <Electronically signed by Ha Echevarria MD> Cosigner Signature (if applicable): CC: PROCUREMENT COST COORDINATOR-C Garry Rodriguez; Dr. Ha Echevarria MD~ Signed [facility] Work Phone: [phone] 424-103909-14-2023 Discharge summary Author Placido Luchilojose miguel [facility] August 11, 2023 11:07pm Note Date/Time August 11, 2023 5:42pm [facility] Medical Records Department [address] [place] [address] Emergency Department Summary 08/11/23 MR#: [id number] Acct: [id number] Name: PATT CRANE Rep #:[id number] : 1980 43 From: Placido Pena MD PCP: ODALYS Iraheta Status:ADM IN Location: [place] [address] HPI History of Present Illness Chief Complaint: Dizziness [...] it was elevated in the 140 systolic. [facility] Medical History delivery delivered Diabetes HTN (hypertension) [...] % (Auto) 63.5 Lymph % (Auto) 26.6 Graham % (Auto) 7.6 Eos % (Auto) 1.3 [...] Clarity Clear Urine pH 6.0 Ur Specific [place] 1.015 Urine Protein 30 H Urine Glucose [...] 18:31 EDT Reading Location ID and State: [facility] / [place] Tel [phone], Service support , Chest CTA 08/11/23 18:45 IMPRESSION: Cardiomegaly and minor atelectasis within the dependent portion of the lungs with tiny right pleural effusion. No evidence for pulmonary embolus Electronically Signed: Mateus Reynolds MD at 19:27 EDT , Discharge Plan Dx/Rx/DC Orders Clinical Impression: Lightheadedness, Non-STEMI (non-ST elevated myocardial infarction), Elevated d- dimer, Hypokalemia Disposition [facility] Discharge Date/Time: 08/11/23 21:07 What to do if you have Problems For any increased pain, shortness of breath, bleeding, nausea or vomiting, chestpain, or any unexpected problems, contact your Primary Care Provider. Call [facility] ([phone]) or report to the closest Emergency Room. Call 911 if necessary. 08/11/232306 <Electronically signed by Placido Pena MD> Cosigner Signature (if applicable): CC: ODALYS Rodriguez ~ Signed [facility] Work Phone: [phone]) 928-902709-13-2023 History of Present illness Narrative* Lauren Cotto APRN.[place] - 08/11/2023 4:30 PM EDT Came in [...] to take her self. documented in this encounterParkview Health [facility] Hospital08-07-2023 Miscellaneous Notes* Telephone Encounter - Sara Valdes RN - 07/05/2023 10:16 AM EDT Spoke with pt. Notified of test results and Dr espino's recommendations. Pt voices understanding. 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 She is agreeable to labs in 2 weeks. Sara Valdes RN * Telephone Encounter - Iwona Gee LPN - 07/05/2023 9:40 AM EDT Voicemail msg left for patient to return call to [facility] to review test results. Office phone number provided. Iwona Gee LPN * Telephone Encounter - Iwona Gee LPN - 07/02/2023 8:16 AM EDT Voicemail msg left for patient to return call to [facility] to review test results. Office phone number [...] Thanks, Tone Espino MD documented in this encounterParkview Health Bryan Hospital06-07-2023 History of Present illness Narrative* Tone Espino MD - 05/05/2023 1:47 PM EDT PRIMARY CARE PHYSICIAN: Garry Rodriguez [address] [place] [address] REFERRING PHYSICIAN: Garry Rodriguez [address] [place] [address] CHIEF COMPLAINT: History of peripartum cardiomyopathy HISTORY [...] approximately 2 to 3 years ago at [facility]. 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 Her last echocardiogram from 2017 otherwise continues to reveal normal LV function. [...] Also, this note has been created using Arrowsight, a speech recognition software program, and may contain errors including punctuation, grammar, spelling, gender, and inappropriate words or phrases that pertain to the sytem. documented in this encounterParkview Health Bryan Hospital06-07-2023 Instructions* Patient Instructions* Tone Espino MD - 05/05/2023 1:45 PM EDT Echocardiogram for further evaluation documented in this encounterParkview Health Bryan Hospital06-07-2023 Nurse Note* Iwona Gee LPN - 05/05/2023 1:08 PM EDT Patient denies any cardiac complaints or symptoms. Iwona Gee LPN documented in this encounterParkview Health [facility] Hospital04-25-2023 Miscellaneous Notes* Telephone Encounter - Akshat Quesada MA - 03/23/2023 4:03 PM EDT Prior auth on ozempic done again through cover my meds. Muñoz code [id number] . Akshat Quesada MA documented in this encounterParkview Health Bryan Hospital04-25-2023 Instructions* Patient Instructions* Garry Rodriguez APRN.[place] - 03/23/2023 10:53 AM EDT Self-titrate Lantus insulin Increase Lantus by 4 units every week until fasting blood sugars are around 130 documented in this encounterParkview Health Bryan Hospital04-25-2023 History of Present illness Narrative* Garry Rodriguez APRN.[place] - 03/23/2023 10:49 AM EDT This note was created using Hive7riter. Subjective Patt Crane is a 42 year [...] ear normal. Nose: Nose normal. Mouth/Throat: Lips: [place]. Mouth: Mucous membranes are moist. Pharynx: Oropharynx [...] SCREENING/ASSESSMENT Garry Rodriguez APRN.[place] documented in this encounterParkview Health [facility] Hospital03-30-2023 Miscellaneous Notes* Telephone Encounter - Carmel Dennison MA - 02/25/2023 12:02 PM EDT Sent a E[employer] message informing patient of results. Carmel Dennison MA * Telephone Encounter - Carmel Dennison MA - 02/25/2023 11:44 AM EDT Left a message for patient to call back to review x-ray and eb results. Carmel Dnenison MA * Telephone Encounter - Carmel Dennison MA - 02/25/2023 11:44 AM EDT ----- Message from Garry Rodriguez APRN.CNP sent at 02/24/2023 10:07 PM EDT ----- Normal x-ray of shoulder, there is a very small bony overgrowth but I do not think that is contributing to her pain. Garry Rodriguez APRN.CNP documented in this encounterParkview Health [facility] Hospital03-30-2023 Miscellaneous Notes* Telephone Encounter - Carmel [...] mammogram and ultrasound. See orders. Garry Rodriguez APRN.CNP documented in this encounterParkview Health Bryan Hospital03-30-2023 Miscellaneous Notes* Telephone Encounter - Pilar [...] advise. Pilar Wallace MA documented in this encounterParkview Health Bryan Hospital2023 Miscellaneous Notes* Telephone Encounter - Akshat Quesada MA - 02/24/2023 9:40 AM EDT Second request , please send. Akshat Quesada MA * Telephone Encounter - Askhat Quesada MA - 02/23/2023 2:49 PM EDT Patient requesting meter to go to [employer]. Please send. Thanks. Akshat Quesada MA documented in this encounterParkview Health [facility] Hospital2023 Miscellaneous Notes* Telephone Encounter - Akshat Quesada MA - 02/24/2023 9:36 AM EDT Lm on pt. Vm prior auth done for ozempic Muñoz code [id number]. Akshat Quesada MA documented in this encounterParkview Health [facility] Hospital03-28-2023 Miscellaneous Notes* Letter - Mammography Coordinator - 02/23/2023 2:27 PM EDT February 25, 2023 PID: [id number] Patt Crane [facility] [place] [address] Dear Ms. Crane, Your recent breast imaging [...] who ordered/prescribed your screening mammogram: Please call [phone] or [phone] to schedule an appointment for your additional [...] and reports are [facility] as part of your permanent medical record, and are available for your continuing care. Thank you for allowing us to help in meeting your health care needs. Sincerely, Dr. Warren Interpreting Radiologist [facility] (Additional imaging) documented in this encounterParkview Health Bryan Hospital03-28-2023 History of Present illness Narrative* Anel [...] 23, 2023 1:18 PM documented in this encounterParkview Health [facility] Hospital03-27-2023 Miscellaneous Notes* Telephone Encounter - Garry Rodriguez APRN.CNP - 02/22/2023 11:12 AM EDT Rx changed to 3 ml pen, dose stays the same. Garry Rodriguez APRN.[place] * Telephone Encounter - Akshat Quesada MA - 02/22/2023 11:00 AM EDT Received fax from [employer] requesting 3ml pen for ozempic due to not having 1.5 any longer. Akshat Quesada MA Placed fax in red folder. documented in this encounterParkview Health Bryan Hospital03-24-2023 History of Present illness Narrative* Dena [...] 19, 2023 1:12 PM documented in this encounterParkview Health Bryan Hospital03-22-2023 History of Present illness Narrative* Garry Rodriguez, SHIRLENE.JAVA DEVELOPER - 02/17/2023 11:24 AM EDT This note was created using Tinitellter. Subjective Patt Crane is a 42 year old female here today for diabetes follow-up visit. I reviewed past medical, surgical, social, and family histories today and updated chart. Allergies, chronic medications, and supplements were also reviewed. She is a new patient, former PCP [facility] Patient has type 2 diabetes. Diagnosed after she had her son about 11 years ago. She was in good health prior to her son being born Was on some oral meds in the past - metformin gave her GI side effects Home nurse from [facility] saw her recently, A1C was 10.0 - on 01/27/23 She has been out of medication for a little over a month Currently on Lantus insulin at bedtime 25-60 units based on her blood sugars Was seeing neurologist and water meter mechanic for history of stroke and cardiomyopathy Was on coumadin then changed to different AC then told she didn't need that anymore Last neurologist and water meter mechanic at [facility] Was taken off her blood pressure medications [...] change. 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 Nose: Nose normal. Mouth/Throat: Lips: [place]. Mouth: Mucous membranes are moist. Pharynx: Oropharynx [...] with long-term current use of insulin ([facility]) - ICD9:250.00, 790.29, V58.67, ICD10: E11.65, Z79.4 [...] - ICD9: 626.2, ICD10: N92.0 Referral to [facility] [place] - CONSULT TO [facility]IM[facility] 6. cardiomyopathy, - ICD9: 674.54, ICD10: O90.3 Was following with water meter mechanic yearly, would like to see CC provider in [place] area She is clinically stable and asymptomatic - CONSULT TO CARDIOLOGY 7. Cerebrovascular accident (CVA) due to embolism of left middle cerebral artery (HCC) - ICD9: 434.11, ICD10: I63.412 Would like to continue yearly follow-up with neurology, referral placed [facility] Will likely need statin - CONSULT TO [...] up for mammogram, yearly mammogram recommended - [facility] SCREENING Garryarianna Rodriguez APRN.JAVA DEVELOPER Reviewed patient's records in Epic: Saw Dr Parada endocrinology 11/19/20 - was on Basaglar and meal time humalog 11/19/20 C-Peptide = 2.5, normal Saw Dr. Charles cardiology 11/08/20 - ECHO 2013 normal LVF, no LVH, no valce abn, normal diastology. 04/05/18 normal treadmill stress ECHO. EKG NSR with RBBB. Was on Eliquis but no BP meds at that time. [facility] History of Present illness Narrative* Татьяна Dinh PTA - 12/26/2019 9:20 AM [facility] Physical Therapy Cancellation/No-show Note Patient Name: Patt Andrew Crane : 1980 Date: 12/26/2019 Referring Practitioner: Ama Vaughn PA-C Diagnosis: Acute pain of Lt knee Visit Information: PT Visit Information PT Insurance Information: [facility] Total # of Visits Approved: 30 [...] more appt.'s [place] Signature: [facility] [employer] Work Phone: [phone] 266-102501-21-2020 History of Present illness Narrative* Moe Wong, JENNY - 12/19/2019 9:20 AM [facility] Physical Therapy Cancellation/No-show Note Patient Name: Patt Crane : 1980 Date: 12/19/2019 Referring Practitioner: Ama Vaughn PA-C Diagnosis: Acute pain of Lt knee Visit Information: PT Visit Information PT Insurance Information: [employer] Total # of Visits Approved: 30 Total # of Visits to Date: 2 No Show: 1 Canceled Appointment: 1 Progress Note Counter: 2/5 NS 12/19/2019 For today's appointment patient: [] Cancelled [] Rescheduled appointment [x] No-show [x] Called pt to remind of next appointment Reason given by patient: [] Patient ill [] Conflicting appointment [] No transportation [] Conflict with work [] No reason given [] Other: Comments: LM informing pt of [place] on 12/26/2019 at 9:20. Signature: documented in this [facility] Work Phone: [phone]) 602-888101-14-2020 History of Present illness Narrative* Shasta Coe, PT - 12/12/2019 9:20 AM EST Therapy Cancellation/No-show Note Date: 12/12/2019 Patient Name: Patt Crane : 1980 Referring Practitioner: Ama Vaughn PA-C Diagnosis: Acute pain of Lt knee Visit Information: PT Visit Information PT Insurance Information: [facility] Total # of Visits Approved: 30 Total # of Visits to Date: 2 No Show: 0 Canceled Appointment: 1 Progress Note Counter: 2/5 (cx 12/12/19) For today's appointment patient: [x] [...] follow up Comments: Signature: [facility] this [facility] Work Phone: [phone] 130-118512-31-2019 History of Present illness Narrative* Sonia Castellano, PT - 11/28/2019 9:00 AM EST [facility] PHYSICAL THERAPY EVALUATION Date: 11/28/2019 Patient Name: Patt Crane Account: [id number] : 1980 (39 y.o.) Gender: female Referring Practitioner: Ama Vaughn PA-C Diagnosis: Acute pain of Lt knee [...] Ambulation Assistance: Independent Transfer Assistance: Independent Active Latex Caster: Yes 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 Yes [x] No [] Explain: Duyen Fall Risk Assessment Risk Factor Scale Score [...] [] Provide supervision during treatment time Goals rodent exterminator goals Time Frame for rodent exterminator goals : 5 weeks rodent exterminator goal 1: Improve corey LE strength to 5/5 to improve stability with ambulation and stair negotiation. MCFP goal 2: Reduce pain to </= 3/10 with all stair negotiation and prolonged walking. MCFP goal 3: Pt will negotiate 4-6 stairs x3 without a HR with minimal to no knee deviations. MCFP goal 4: Pt will be able to squat with minimal to no knee deviations with decreased c/o pain. PT Individual Minutes Time In: 920 Time Out: 949 Minutes: 29 Procedure Minutes:29' eval documented [facility] Work Phone: 1([phone] 499-498512-15-2011 History of Past illness Narrative* Problem Noted Date Diagnosed Date Resolved Date Gestational diabetes mellitus, 11/12/2011 01/15/2024 documented as of this encounter (statuses as of 01/16/2024) [facility] Author Fernando Le [facility] Note Date/Time July 15, 2025 3: 51am [facility] Medical Records Department [address] [place] [address] Emergency Department Summary 07/15/25 MR#: [id number] Acct: [id number] Name: PATT CRANE Rep #:[id number] : 1980 45 From: Fernando Le MD PCP: ODALYS Iraheta Status:REG ER Location: ED HPI History of Present Illness Chief Complaint: Numb/Ting Informant: patient Narrative Narrative: 45-year-old female presenting with numbness in all fingers of the left hand thatshe woke up with this past a.m., and within the past couple hours she has noticed also numbness in her left upper lip but it does not go across the midline. No other symptoms. No headache, no recent illness or mmqy-izq-snvdmidddimoooazzh or changes in her medicines, no weakness, no problems walking or speaking or understanding others. She had a TIA in the past but it was 13 or 14years ago and she cannot remember exactly what symptoms she had but that was hermain concern here now. [facility] Medical History Cardiac LV ejection fraction 10-20% (08/12/23) Idiopathic cardiomyopathy (08/12/23) delivery delivered TIA (transient ischemic attack) Diabetes HTN (hypertension) Home Medications ?Medication ?Instructions ?Recorded ?Last Taken ?Type empagliflozin 25 mg tablet 25 mg PO QDAY 12/13/24 Unkn own History (Jardiance) carvedilol 25 mg tablet 25 mg PO BID #180 tabs 06/20 Unknown Rx furosemide 40 mg tablet 40 mg PO DAILY 06/20/25 Unkn own History lisinopril 20 mg tablet 20 mg PO BID 90 days #180 ta bs 06/20/25 Unknown Rx sitagliptin phosphate 100 mg 100 mg PO QDAY 06/20/25 U nknown History tablet (Januvia) rosuvastatin 10 mg tablet 10 mg PO QHS 07/15/25 Unknow n History Allergy/AdvReac Type Severity Reaction Status Date / Time latex AdvReac Mild RASH Verified 07/14/25 23:23 Penicillins AdvReac UNKNOWN Verified 07/14/25 23:23 Family History Mother Diabetes Hypertension Father Diabetes Hypertension Surgical History Previous section Social History household members: significant other and children housing: house Smoking Status: Never smoker alcohol intake: current alcohol intake frequency: holidays/special occasions only substance use type: does not use caffeine: Yes Type: carbonated beverages Number of servings: 3, coffee Number of servings: 1 and tea ROS ROS ED Constitutional Constitutional ED: Denies chills or fever(s) Eyes Eyes: Denies change in vision or diplopia ENT ENT ED: Denies rhinorrhea or sore throat Cardiovascular Cardiovascular: Denies chest pain or palpitations Respiratory/Chest Respiratory/Chest: Denies cough or dyspnea Gastrointestinal Gastrointestinal: Denies abdominal pain, diarrhea, nausea or vomiting Genitourinary Genitourinary ED: Denies dysuria or hematuria Musculoskeletal Musculoskeletal: Denies back pain or neck pain Integumentary Denies abscess or rash Neurologic Neurologic: Reports paresthesias; Denies headache(s) or weakness Psychiatric Psychiatric: Denies anxiety or suicidal thoughts EXAM Physical Exam Const Vital Signs: 07/14/25 23:23 07/15/25 00:20 07/15/25 00:41 Temperature 98.3 F Temperature Source Oral Pulse Rate 102 H 88 Respiratory Rate 16 16 Blood Pressure 181/103 H Blood Pressure Mean 129 Pulse Ox 98 99 98 Oxygen Delivery Method Room Air Room Air Room Air 07/15/25 01:22 Temperature Temperature Source Pulse Rate 89 Respiratory Rate 18 Blood Pressure 125/73 H Blood Pressure Mean 90 Pulse Ox 97 Oxygen Delivery Method Room Air Positive well nourished and well developed General Appearance ED: well developed and NAD HEENT Reports moist mucous membranes normocephalic and atraumatic Eyes PERRL and EOMs intact bilaterally Eyes Narrative: Visual kim intact Neck full ROM and supple Resp normal respiratory effort and clear to auscultation bilaterally Cardio regular rate, regular rhythm and no murmurs GI non-tender and non-distended Auscultation: normoactive bowel sounds Palpation: soft Back/Spine no CVA tenderness General Back: other FROM Extremity normal to inspection General Extremety ED: Negative for edema, pulses abnormal or tenderness General Extremity: Negative for edema or pulses abnormal Neuro oriented x3, CN's II-XII intact bilaterally and no sensory deficits noted Neuro Narrative: Normal ustxct-xc-ymmf and fakh-oy-mtgk. Normal speech. Normal strength. Normal answers to questions keenly alert. NIHSS 1 for decreased sensation left lower face and left upper extremity distally only. Sensorium / Orientation: awake and alert Motor Exam: strength 5/5 throughout Psych mental status grossly normal Skin no rashes or lesions noted and no wounds MDM MDM MDM Narrative Medical decision making narrative: My concerns at the patient could be having a TIA or stroke. She is outside of the 24-hour window as far as her last known well so we did not call and alert but did the same workup. Plain CT unremarkable, CT angiography of the head and neck is negative for LVO or aneurysm or other acute abnormality. Labs are unremarkable including 2 sets of troponins, her EKG shows a bifascicular block, this is unchanged compared with her prior. She is in sinus rhythm. I reviewed the CT images and reports and I agree with them. Her initial presenting blood pressure was concerning at 181/103. Patient states this is not uncommon for her. That makes hypertensive emergency much less likely. Monitoring it closelyand not treating at that point was indicated, repeat blood pressure 125/73 but she still has the paresthesias although improved; gone in face/lip, and now onlyin certain left fingers. I recommend admission for MRI and further testing since she is on no antiplatelet or anticoagulant medications. History & Record Review Additional record(s) reviewed:: Other (Echo from 06/07/2024 fairly unremarkable, no indication that bubble study was performed) Lab Data Attestation: I reviewed the patient's lab results. Labs: Laboratory Results - last 24 hr 07/15/25 07/15/25 00:36 02:47 WBC 6.7 RBC 5.24 Hgb 14.3 Hct 43.5 MCV 83.0 MCH 27.3 MCHC 32.9 RDW Std Deviation 41.3 RDW Coeff of Chad 13.6 Plt Count 347 MPV 9.8 Immature Gran % (Auto) 0.400 Neut % (Auto) 68.3 Lymph % (Auto) 20.2 Graham % (Auto) 8.6 Eos % (Auto) 1.9 Baso % (Auto) 0.6 Absolute Neuts (auto) 4.6 Absolute Lymphs (auto) 1.36 Nucleated RBC % 0 PT 13.0 INR 1.0 APTT 24.7 Sodium 134 Potassium 3.8 Chloride 100 Carbon Dioxide 20.8 L Anion Gap 13 BUN 12 Creatinine 1.13 Estim Creat Clear Calc 69.64 Est GFR (MDRD) Non-Af 62 BUN/Creatinine Ratio 11.0 Glucose 301 H Calcium 9.6 Troponin T High Sens 13 Troponin T Hi Sens 2 Hr 9 Radiography Diagnostic Testing: Clinical Impression(s) from Imaging Studies Brain CT 07/15/25 01:20 IMPRESSION: No intracerebral or extra-axial hemorrhage. No acute cerebrovascular insult. If there is high clinical suspicion, correlate to MRI Unremarkable non-enhanced CT study for the brain. Reading Location: [place] [address] Head/Neck CTA 07/15/25 01:20 IMPRESSION: Patent intra and extra-cranial carotid and vertebral arteries. No stenotic lesions, aneurysmal dilatation or dissecting intimal flaps. Reading Location: [place] [address] Rhythm Strip Rhythm Strip: Sinus Rhythm Rate: 90 Ectopy: None EKG Initial EKG: Attestation: I personally reviewed and interpreted this EKG as follows: Interpretation: Sinus Rhythm, No Acute Injury Pattern, RBBB and LAFB Prior EKG tracings: available for review Prior: Unchanged Management Discussion w/another healthcare provider: Hospitalist Discharge Plan Dx/Rx/DC Orders Clinical Impression: Paresthesia of left arm, Facial paresthesia, Accelerated hypertension Disposition Disposition: Acute Care [facility] NIHSS NIHSS 1a. Level of Consciousness: 0 - Alert; keenly responsive 1b. LOC Questions: 0 - Answers BOTH questions correctly 1c. LOC Commands: 0 - Performs BOTH tasks correctly 2. Best Gaze: 0 - Normal 3. Visual: 0 - No visual loss 4. Facial Palsy: 0 - Normal symmetrical movements 5a. Left Arm: 0 - No drift; arm holds 90 (or 45) degrees for full 10 seconds 5b. Right Arm: 0 - No drift; arm holds 90 (or 45) degrees for full 10 seconds 6a. Left Le - No drift; leg holds 30-degree position for full 5 seconds 6b. Right Le - No drift; leg holds 30-degree position for full 5 seconds 7. Limb Ataxia: 0 - Absent 8. Sensory: 1 - Ggba-cd-zfxmyrvo sensory loss; 9. Best Language: 0 - No aphasia; normal 10. Dysarthria: 0 - Normal 11. Extinction and Inattention: 0 - No abnormality Total: 1 Stroke Questions Stroke Team Activated: No (Outside of 24-hour last known well) What to do if you have Problems For any increased pain, shortness of breath, bleeding, nausea or vomiting, chestpain, or any unexpected problems, contact your Primary Care Provider. Call [facility] ([phone]) or report to the closest Emergency Room. Call 911 if necessary. 07/15/25 0351 <Electronically signed by Fernando Le MD> Cosigner Signature (if applicable): CC: ODALYS Rodriguez ~ Signed [facility] Work Phone: Evaluation + Plan note No data available for this section [facility] Evaluation + Plan note Future Appointments Appointment Date:12/06/2024 09:00:00 AM Scheduled Provider:KRISTYN BRIONES MD Location:[facility] Appointment Type:[facility] Evaluation + Plan note Future Appointments Appointment Date:01/17/2025 10:00:00 AM Scheduled Provider:KRISTYN BRIONES MD Location:[facility] Appointment Type:[facility] Evaluation note* Diagnosis Metatarsalgia of left foot- Primary Enthesopathy of ankle and tarsus, unspecified documented in this encounter [facility] Work Phone: evaluation note* Diagnosis Type 2 [...] Other screening mammogram [facility] Diagnosis Type 2 diabetes mellitus with hyperglycemia, with long-term current use of insulin (HCC)- Primary Obesity, Class II, BMI 35-39.9 Obesity, unspecified [facility] Diagnosis Type 2 diabetes mellitus with hyperglycemia, with long-term current use of insulin (HCC) [facility]* Diagnosis Type 2 diabetes mellitus with hyperglycemia, with long-term current use of insulin (HCC) documented [facility]* Diagnosis Abnormal mammogram- Primary Abnormal mammogram, unspecified documented [facility]* Diagnosis Type 2 diabetes mellitus with hyperglycemia, with long-term current use of insulin (HCC)- Primary Obesity, Class II, BMI 35-39.9 Obesity, unspecified Depression screening Screening for depression documented in this [facility]* Diagnosis cardiomyopathy, - Primary Peripartum cardiomyopathy, Hyperlipidemia, unspecified hyperlipidemia type documented [facility] this [facility]* Diagnosis Dilated cardiomyopathy (HCC)- Primary Other primary cardiomyopathies documented [facility]* Diagnosis Onset Date Resolution Status Elevated d-dimer acute Hypokalemia acute Lightheadedness acute Non-STEMI (non-ST elevated myocardial infarction) acute [facility] Work Phone: Evaluation note* Diagnosis Dizziness- Primary Dizziness and giddiness documented [facility] this encounter [facility]* Diagnosis Hyperlipidemia, unspecified hyperlipidemia type- Primary documented [facility]* Diagnosis Other ascites- Primary [facility]* Diagnosis Other ascites- Primary Right upper quadrant abdominal mass Abdominal or pelvic swelling, mass, or lump, right upper quadrant Abnormal abdominal ultrasound Nonspecific (abnormal) findings on radiological and other examination of abdominal area, including retroperitoneum Intra-abdominal and pelvic swelling, mass and lump, unspecified site [facility] Diagnosis Epigastric pain Abdominal pain, epigastric Other ascites [facility] Diagnosis Encounter for screening mammogram for malignant neoplasm of breast Other screening mammogram [facility]* Diagnosis Intra-abdominal and pelvic swelling, mass and lump, unspecified site [facility]* Diagnosis Uterine leiomyoma, unspecified location- Primary Cyst of right ovary Other and unspecified ovarian cyst Liver lesion Other specified disorders of liver [facility]* Diagnosis Type 2 diabetes mellitus without complication, without long-term current use of insulin (HCC)- Primary Encounter for screening mammogram for breast cancer Chronic right shoulder pain Pain in joint, shoulder region Fatty liver Other chronic nonalcoholic liver disease [facility]* Diagnosis Type 2 diabetes mellitus without complication, without long-term current use of insulin (HCC) [facility]* Diagnosis Chronic right shoulder pain Pain in joint, shoulder region [facility]* Diagnosis Lung nodule- Primary Solitary pulmonary nodule [facility]* Diagnosis Lung nodule Solitary pulmonary nodule [facility]* Diagnosis Type 2 diabetes mellitus with hyperglycemia, with long-term current use of insulin (HCC) [facility] Diagnosis Pain of left heel [...] of left foot [facility]* Diagnosis Plantar fasciitis- Primary Plantar fascial fibromatosis Pain of left heel Pain in limb documented in this encounter [facility] note* Diagnosis Pain of left heel- Primary Pain in limb Plantar fasciitis Plantar fascial fibromatosis documented in this encounter [facility] note* Diagnosis Type 2 diabetes mellitus with hyperglycemia, without long-term current use of insulin (HCC)- Primary Cardiomyopathy, unspecified type (HCC) Essential (primary) hypertension Unspecified essential hypertension Dyslipidemia Other and unspecified hyperlipidemia Plantar fasciitis of left foot Plantar fascial fibromatosis Presence of intrauterine contraceptive device Encounter for screening mammogram for breast cancer [facility]* Diagnosis Pain of left heel Pain in limb Plantar fasciitis Plantar fascial fibromatosis documented in this encounter [facility] note* Diagnosis Plantar fasciitis- Primary Plantar fascial fibromatosis documented in this encounter [facility] note* Diagnosis Plantar fasciitis- Primary Plantar fascial fibromatosis Pain of left heel Pain in limb documented in this encounter [facility] note* Diagnosis Uterine leiomyoma, unspecified location- Primary Type 2 diabetes mellitus with hyperglycemia, with long-term current use of insulin (HCC) Cyst of right ovary Other and unspecified ovarian cyst [facility]* Diagnosis Onset Date Resolution Status Admit Date Peripartum cardiomyopathy, antepartum condition or complication acute June 20, 2025 8:06am HTN (hypertension) chronic May 302024 8:06am [facility] Work Phone: Hospital Discharge instructions* Attachments The following attachments cannot be sent through Care Everywhere. * Metatarsalgia ([place]ris[place]) [facility] Work [facility]: Hospital Discharge instructions No data available for this section [facility] Progress note No data available for this section [facility] Reason for referral (narrative)* Diagnostic Procedure Only (Routine) - Pending Review Specialty Diagnoses / Procedures Referred By Kai t Referred To Contact [facility] Diagnoses Abnormal mammogram Procedures US BREAST LTD LEFT US BREAST UNI REAL TIME WITH IMAGE LIMITED Garry Rodriguez APRN.CNP [address] [place] [address] [facility] [address] [place] [address] Referral ID Status Reason Start Date Expiration Date Visits Requested Visits Authorized [id number] Pending Review Auto-Generat ed Referral 02/25/2023 03/26/2024 1 1 * Diagnostic Procedure Only (Routine) - Pending Review Specialty Diagnoses / Procedures Referred By Contac t Referred To Contact [facility] Diagnoses Abnormal mammogram Procedures EB DIAGNOSTIC LEFT DIAGNOSTIC MAMMOGRAPHY COMPUTER-AIDED DETCJ UNI Garry Rodriguez APRN.CNP [address] [place] [id number] [facility] [address] [place] [address] Referral ID Status Reason Start Date Expiration Date Visits Requested Visits Authorized [id number] Pending Review Auto-Generat ed Referral 02/25/2023 03/26/2024 1 1 [facility] for referral (narrative)* Outpatient Procedure (Routine) - Pending Review Specialty Diagnoses / Procedures Referred By Contac t Referred To Contact [facility] Diagnoses Peripartum cardiomyopathy, Hyperlipidemia, unspecified hyperlipidemia type Procedures ECHO ECHO TTHRC R-T 2D W/WOM-MODE COMPL SPEC&COLR D Tone Espino MD [address], [facility] [address] [place] [address] [facility] [address] [place] [address] Referral ID Status Reason Start Date Expiration Date Visits Requested Visits Authorized [id number] Pending Review Auto-Generat ed Referral 05/05/2023 05/04/2024 1 1 [facility] for referral (narrative)* Diagnostic Procedure Only (Routine) - Authorized Specialty Diagnoses / Procedures Referred By Contac t Referred To Contact [facility] Diagnoses Other ascites Procedures US ABDOMEN COMPLETE US ABDOMINAL REAL TIME W/IMAGE DOCUMENTATION Garry Rodriguez APRN.CNP [address] [place] [address] [place] [address] Referral ID Status Reason Start Date Expiration Date Visits Requested Visits Authorized [id number] Authorized Auto-Generat ed Referral 10/12/2024 1 1 [facility] for referral (narrative)* Diagnostic Procedure Only (Routine) - Closed Specialty Diagnoses / Procedures Referred By Kai t Referred To Contact US IMAGING Diagnoses Epigastric pain Procedures US ABD RIGHT UPPER QUADRANT US ABDOMINAL REAL TIME W/IMAGE LIMITED Garry Rodriguez APRN.CNP [address] [place] [address] [place] [address] Referral ID Status Reason Start Date Expiration Date V isits Requested Visits Authorized [id number] Closed Auto-Generate d Referral 08/20/2023 09/18/2024 1 1 [facility] for referral (narrative)* Diagnostic Procedure Only (Routine) - Closed Specialty Diagnoses / Procedures Referred By Kai t Referred To Contact BR IMAGING Diagnoses Encounter for screening mammogram for malignant neoplasm of breast Procedures EB SCREENING SCREENING MAMMOGRAPHY BI 2-VIEW BREAST INC CAD Garry Rodriguez APRN.JAVA DEVELOPER [address] [place] [address] Br Imaging [address] [facility] [place] [address] Referral ID Status Reason Start Date Expiration Date V isits Requested Visits Authorized [id number] Closed Auto-Generate d Referral 02/17/2023 03/18/2024 1 1 [facility] for referral (narrative)* Diagnostic Procedure Only (Routine) - Closed Specialty Diagnoses / Procedures Referred By Contac t Referred To Contact XR IMAGING Diagnoses Chronic right shoulder pain Procedures XR SHOULDER GENERAL 3V OR MORE AP/TRUE AP/OTHER RIGHT RADEX SHOULDER COMPLETE MINIMUM 2 VIEWS Garry Rodriguez APRN.JAVA DEVELOPER [address] [place] [address] [place] [address] Referral ID Status Reason Start Date Expiration Date V isits Requested Visits Authorized [id number] Closed Auto-Generate d Referral 02/17/2023 03/18/2024 1 1 [facility] for referral (narrative)No reason for referral [facility]: Reason for visit Narrative* Diagnostic Procedure Only (Routine) - Closed Specialty Diagnoses / Procedures Referred By Contac t Referred To Contact US IMAGING Diagnoses Epigastric pain Procedures US ABD RIGHT UPPER QUADRANT US ABDOMINAL REAL TIME W/IMAGE LIMITED Garry Rodriguez, REFRIGERATION INSULATOR.JAVA DEVELOPER [address] [place] [address] [place] [address] Referral ID Status Reason Start Date Expiration Date V isits Requested Visits Authorized [id number] Closed Auto-Generate d Referral 08/20/2023 09/18/2024 1 1 [facility] for visit Narrative* Diagnostic Procedure Only (Routine) - Closed Specialty Diagnoses / Procedures Referred By Contac t Referred To Contact BR IMAGING Diagnoses Encounter for screening mammogram for malignant neoplasm of breast Procedures EB SCREENING SCREENING MAMMOGRAPHY BI 2-VIEW BREAST INC CAD Garry Rodriguez, REFRIGERATION INSULATOR.JAVA DEVELOPER [address] [place] [address] Br Imaging [address] [place] [address] Referral ID Status Reason Start Date Expiration Date V isits Requested Visits Authorized [id number] Closed Auto-Generate d Referral 02/17/2023 03/18/2024 1 1 [facility] for visit Narrative* Diagnostic Procedure Only (Routine) - Closed Specialty Diagnoses / Procedures Referred By Contac t Referred To Contact XR IMAGING Diagnoses Chronic right shoulder pain Procedures XR SHOULDER GENERAL 3V OR MORE AP/TRUE AP/OTHER RIGHT RADEX SHOULDER COMPLETE MINIMUM 2 VIEWS Garry Rodriguez REFRIGERATION INSULATOR.JAVA DEVELOPER [address] [place] [address] [place] [address] Referral ID Status Reason Start Date Expiration Date V isits Requested Visits Authorized [id number] Closed Auto-Generate d Referral 02/17/2023 03/18/2024 1 1 [facility] Diagnostic Procedure Only (Routine) - Closed Specialty Diagnoses / Procedures Referred By Contac t Referred To Contact XR IMAGING Diagnoses Pain of left heel Nodule of skin of left foot Procedures XR FOOT GENERAL 3V AP/LAT/OBL LEFT RADEX FOOT COMPLETE MINIMUM 3 VIEWS Garry Rodriguez, REFRIGERATION INSULATOR.JAVA DEVELOPER [address] [place] [address] [place] [address] Referral ID Status Reason Start Date Expiration Date V isits Requested Visits Authorized [id number] Closed Auto-Generate d Referral 12/06/2024 01/05/2026 1 1 [facility] Summary Purpose Family History Relationship Condition Age at Onset Recorded Date/T dayanna mother Diabetes mellitus Unknown Hypertension Unknown father Diabetes mellitus Unknown Advance Directives Documents on File Type Date Recorded 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 Advance Directives and Living Will Power of Logistics Management Specialist Documents on File Type Date Recorded 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 ACP-Advance Directive ACP-Power of Logistics Management Specialist Documents on File Type Date Recorded 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 Advance Directives and Living Will Power of Logistics Management Specialist Advance Directive Response Recorded Date/ Time Living Will No August 11, 2023 5:26pm Power of Logistics Management Specialist No July 5:26pm Advance Directive Response Recorded Date/ Time Living Will No August 12, 2023 1:43pm Power of Logistics Management Specialist No July 1:43pm Advance Directive Response Recorded Date/ Time Living Will No August 12, 2023 12:43pm Power of Logistics Management Specialist No July 12:43pm Advance Directive Response Recorded Date/ Time Do you have a Healthcare Power of Logistics Management Specialist? 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 [facility] goal 2: Reduce pain to </= 3/10 with all stair negotiation and prolonged walking. [facility] goal 3: Pt will negotiate 4-6 stairs x3 without a HR with minimal to no knee deviations. rodent exterminator goal 4: Pt will be able to [...] Kam PTA - 01/09/2020 11:20 AM EST [facility] Cancellation/No-show Note Patient Name: Patt Crane : 1980 Date: 01/09/2020 Referring Practitioner: Ama Vaughn PA-C Diagnosis: Acute pain of Lt knee Visit Information: PT Visit Information PT Insurance Information: [employer] Total # of Visits Approved: 30 Total # of Visits to Date: 3 No Show: 2 Canceled Appointment: 2 Progress Note Counter: 3/5 (ns on 01/09/20) For today's appointment patient: [...] NON OB TRANSVAGINAL Mike Tovar DO [address] [address] Status Reason Specialty Diagnoses / Procedures Referre d By Contact Referred To Contact Closed Radiology Diagnoses Menorrhagia with regular cycle Procedures US PELVIS COMPLETE Mike Tovar, DO [address] [address] Specialty Diagnoses / Procedures Referred By Contac t Referred To Contact [facility] Diagnoses Chronic right shoulder pain Procedures CONSULT TO PHYSICAL THERAPY PHYSICAL THERAPY EVALUATION HIGH COMPLEX 45 MINS Garry Rodriguez APRN.JAVA DEVELOPER [address] [place] [address] [facility] [place] [address] Referral ID Status Reason Start Date Expiration Date Visits Requested Visits Authorized [id number] Pending Review Auto-Generat ed Referral 02/18/2023 02/18/2024 1 1 Specialty Diagnoses / Procedures Referred By Contac t Referred To Contact Garry Rodriguez APRN.JAVA DEVELOPER [address] [place] [address] Referral ID Status Reason Start Date Expiration Date Visits Re quested Visits Authorized [id number] Closed 1 1 Specialty Diagnoses / Procedures Referred By Contac t Referred To Contact XR IMAGING Diagnoses Chronic right shoulder pain Procedures XR SHOULDER GENERAL 3V OR MORE AP/TRUE AP/OTHER RIGHT RADEX SHOULDER COMPLETE MINIMUM 2 VIEWS Garry Rodriguez APRN.JAVA DEVELOPER [address] [place] [address] Xr Imaging Referral ID Status Reason Start Date Expiration Date Visits Requested Visits Authorized [id number] Pending Review Auto-Generat ed Referral 02/17/2023 03/18/2024 1 1 Specialty Diagnoses / Procedures Referred By Contac t Referred To Contact Neurology / [facility] Department Diagnoses Cerebrovascular accident (CVA) due to embolism of left middle cerebral artery (HCC) Procedures CONSULT TO NEUROLOGY OFFICE/OUTPATIENT [facility] 60-74 MINUTES Garry Rodriguez APRN.JAVA DEVELOPER [address] [place] [address] Leti Cox MD Referral ID Status Reason Start Date Expiration Date Visits Requested Visits Authorized [id number] Authorized PCP Requested Referral 02/17/2023 02/17/2024 1 1 Specialty Diagnoses / Procedures Referred By Contac t Referred To Contact Cardiology Diagnoses Primary hypertension Peripartum cardiomyopathy, Procedures CONSULT TO CARDIOLOGY OFFICE/OUTPATIENT [facility] MDM 60-74 MINUTES Garry Rodriguez REFRIGERATION INSULATOR.JAVA DEVELOPER [address] [place] [address] Johnna Lennon MD [facility] [place] [address] Referral ID Status Reason Start Date Expiration Date Visits Requested Visits Authorized [id number] Authorized PCP Requested Referral 02/17/2023 02/17/2024 1 1 Specialty Diagnoses / Procedures Referred By Contac t Referred To Contact [facility] Department Diagnoses Type 2 diabetes mellitus with hyperglycemia, with long-term current use of insulin (HCC) Wears glasses Procedures CONSULT TO OPHTHALMOLOGY OFFICE/OUTPATIENT [facility] MDM 60-74 MINUTES Garry Rodriguez APRN.JAVA DEVELOPER [address] [place] [address] [facility] Referral ID Status Reason Start Date Expiration Date Visits Requested Visits Authorized [id number] Authorized PCP Requested Referral 02/17/2023 02/17/2024 1 1 Specialty Diagnoses / Procedures Referred By Contac t Referred To Contact COREMAKER EXPERIMENTAL / [facility] Department Diagnoses Menorrhagia with regular cycle Procedures CONSULT TO COREMAKER EXPERIMENTAL OFFICE/OUTPATIENT NEW [facility] MDM 60-74 MINUTES Garry Rodriguez, REFRIGERATION INSULATOR.JAVA DEVELOPER [address] [place] [address] [facility] Dept Referral ID Status Reason Start Date Expiration Date Visits Requested Visits Authorized [id number] Authorized PCP Requested Referral Auto-Generate d Referral 02/17/2023 02/17/2024 1 1 Specialty Diagnoses / Procedures Referred By Contac t Referred To Contact BR IMAGING Diagnoses Encounter for screening mammogram for malignant neoplasm of breast Procedures EB SCREENING SCREENING MAMMOGRAPHY BI 2-VIEW BREAST INC CAD Garry Rodriguez, REFRIGERATION INSULATOR.JAVA DEVELOPER [address] [place] [address] Br Imaging [address] [place] [address] Referral ID Status Reason Start Date Expiration Date Visits Requested Visits Authorized [id number] Pending Review Auto-Generat ed Referral 02/17/2023 03/18/2024 1 1 Specialty Diagnoses / Procedures Referred By Contac t Referred To Contact CT IMAGING Diagnoses Intra-abdominal and pelvic swelling, mass and lump, unspecified site Procedures CT ABD/PEL W IVCON CT ABD & PELVIS W/CONTRAST Garry Rodriguez, REFRIGERATION INSULATOR.JAVA DEVELOPER [address] [place] [address] [place] [address] Referral ID Status Reason Start Date Expiration Date Visits Requested Visits Authorized [id number] Pending Review Auto-Generat ed Referral 10/15/2024 1 1 Referral ID Status Reason Start Date Expiration Date V isits Requested Visits Authorized [id number] Closed Auto-Generate d Referral 09/18/2023 11/17/2023 1 1 Specialty Diagnoses / Procedures Referred By Contac t Referred To Contact MR IMAGING Diagnoses Liver lesion Procedures MRI LIVER WO/W IVCON MRI ABDOMEN W/O & W/CONTRAST MATERIAL Garry Rodriguez REFRIGERATION INSULATOR.JAVA DEVELOPER [address] [place] [address] [place] [address] Referral ID Status Reason Start Date Expiration Date Visits Requested Visits Authorized [id number] Pending Review Auto-Generat ed Referral 10/06/2023 11/04/2024 1 1 Referral ID Status Reason Start Date Expiration Date Visits Requested Visits Authorized [id number] Pending Review Auto-Generat ed Referral 01/12/2024 01/11/2025 1 1 Specialty Diagnoses / Procedures Referred By Kai t Referred To Contact BR IMAGING Diagnoses Encounter for screening mammogram for breast cancer Procedures EB SCREENING SCREENING MAMMOGRAPHY BI 2-VIEW BREAST INC CAD Garry Rodriguez, REFRIGERATION INSULATOR.JAVA DEVELOPER [address] [place] [address] Br Imaging [facility] [place] [address] Referral ID Status Reason Start Date Expiration Date Visits Requested Visits Authorized [id number] Pending Review Auto-Generat ed Referral 01/12/2024 02/10/2025 1 1 Specialty Diagnoses / Procedures Referred By Contac t Referred To Contact CT IMAGING Diagnoses Lung nodule Procedures CT CHEST WO IVCON DIAGNOSTIC COMPUTED TOMOGRAPHY THORAX W/O CNTRST Garry Rodriguez, REFRIGERATION INSULATOR.JAVA DEVELOPER [address] [place] [address] Ct Imaging [facility] Referral ID Status Reason Start Date Expiration Date Visits Requested Visits Authorized [id number] New Request Auto-Generat ed Referral 11/08/2025 1 1 Specialty Diagnoses / Procedures Referred By Kai t Referred To Contact Podiatry / [facility] DEPARTMENT Diagnoses Pain of left heel Nodule of skin of left foot Procedures CONSULT TO PODIATRY OFFICE/OUTPATIENT NEW [facility]IGH MDM 60 MINUTES Garry Rodriguez, REFRIGERATION INSULATOR.JAVA DEVELOPER [address] [place] [address] Emilia Griffiths [address] [address] Referral ID Status Reason Start Date Expiration Date Visits Requested Visits Authorized [id number] Authorized PCP Requested Referral 12/06/2024 12/06/2025 1 1 Specialty Diagnoses / Procedures Referred By Contac t Referred To Contact XR IMAGING Diagnoses Pain of left heel Nodule of skin of left foot Procedures XR FOOT GENERAL 3V AP/LAT/OBL LEFT RADEX FOOT COMPLETE MINIMUM 3 VIEWS Garry Rodriguez REFRIGERATION INSULATOR.JAVA DEVELOPER [address] [place] [address] [place] [address] Referral ID Status Reason Start Date Expiration Date V isits Requested Visits Authorized [id number] Closed Auto-Generate d Referral 12/06/2024 01/05/2026 1 1 Specialty Diagnoses / Procedures Referred By Contac t Referred To Contact Game Farm Helper / [facility] DEPARTMENT Diagnoses Screening for cervical cancer Procedures CONSULT TO COREMAKER EXPERIMENTAL OFFICE/OUTPATIENT [facility] MDM 60 MINUTES Garry Rodriguez APRN.JAVA DEVELOPER [address] [place] [address] Zeina Dasilva MD [facility] [place] [address] Referral ID Status Reason Start Date Expiration Date Visits Requested Visits Authorized [id number] Authorized PCP Requested Referral Auto-Generate d Referral 12/06/2024 12/06/2025 1 1 Specialty Diagnoses / Procedures Referred By Contac t Referred To Contact Diagnoses Type 2 diabetes mellitus with hyperglycemia, without long-term current use of insulin (HCC) Garry Rodriguez APRN.JAVA DEVELOPER [address] [place] [address] Referral ID Status Reason Start Date Expiration Date Visits Re quested Visits Authorized [id number] Denied 1 1 Specialty Diagnoses / Procedures Referred By Contac t Referred To Contact BR IMAGING Diagnoses Encounter for screening mammogram for breast cancer Procedures EB SCREENING W LINDEN SCREENING DIGITAL BREAST TOMOSYNTHESIS BI SCREENING MAMMOGRAPHY BI 2-VIEW BREAST INC CAD Garry Rodriguez, REFRIGERATION INSULATOR.JAVA DEVELOPER [address] [place] [address] Br Imaging [address] [place] [address] Referral ID Status Reason Start Date Expiration Date Visits Requested Visits Authorized [id number] New Request Auto-Generat ed Referral 12/06/2024 01/05/2026 [...] HTN (hypertension) June 20, 2025 8:06 am Chief Complaint Admit Date 6 M FU June 20, 2025 8:06 am numbness July 15, 2025 3: 59am Reason for Visit Admit Date Peripartum cardiomyopathy, a ntepartum condition or complication June 20, 2025 8:06am HTN (hypertension) June 20, 2025 8:06 am Essential hypertension July 15, 2025 3:59am Facial paresthesia July 15, 2025 3: 59am Hyperglycemia due to type 2 diabetes alanis litus July 15, 2025 3:59am Obesity (BMI 30-39.9) July 15, 2025 3:59am Paresthesia of left arm July 15 3:59am TIA (transient ischemic attack) June 292024 3:59am Additional Source Comments INFORMATION SOURCE (unrecogn ized section and content) DATE CREATED AUTHOR 05/25/2018 [facility] DATE CREATED AUTHOR AUTHOR'S ORGANIZ ATION 05/25/2018 [facility] DATE CREATED AUTHOR AUTHOR'S ORGANIZ ATION 08/21/2021 [facility] DATE CREATED AUTHOR AUTHOR'S ORGANIZ ATION 08/21/2021 [facility] DATE CREATED AUTHOR AUTHOR'S ORGANIZ ATION 07/11/2022 [facility] DATE CREATED AUTHOR AUTHOR'S ORGANIZ ATION 05/24/2024 [facility] ([place]) DATE CREATED AUTHOR AUTHOR'S ORGANIZ ATION 12/16/2024 [facility] DATE CREATED AUTHOR AUTHOR'S ORGANIZ ATION 05/18/2025 [facility] DATE CREATED AUTHOR AUTHOR'S ORGANIZ ATION 06/01/2025 [facility] DATE CREATED AUTHOR AUTHOR'S ORGANIZ ATION 06/21/2025 [facility] Reason for Visit (unrecogniz ed section and content) Reason Comments PT Progress Note Specialty Diagnoses / Procedures Referred By Contac t Referred To Contact [facility] Diagnoses Pain of left heel Plantar fasciitis Procedures CONSULT TO PHYSICAL THERAPY PHYSICAL THERAPY EVALUATION HIGH COMPLEX 45 MINS Emilia Griffiths [address] [place] [address] Phone: tel: fax: [facility] [address] [place] [address] Referral ID Status Reason Start Date Expiration Date Visits Requested Visits Authorized [id number] Authorized Auto-Generat ed Referral 11/29/2024 11/28/2025 [address] Specialty Diagnoses / Procedures Referred By Contac t Referred To Contact CT IMAGING Diagnoses Intra-abdominal and pelvic swelling, mass and lump, unspecified site Procedures CT ABD/PEL W IVCON CT ABD & PELVIS W/CONTRAST Garry Rodriguez, REFRIGERATION INSULATOR.JAVA DEVELOPER [address] [place] [address] [place] [address] Referral ID Status Reason Start Date Expiration Date V isits Requested Visits Authorized [id number] Closed Auto-Generate d Referral 09/18/2023 11/17/2023 1 1 Status Reason Specialty Diagnoses / Procedures Referre d By Contact Referred To Contact Closed Radiology Diagnoses Menorrhagia with regular cycle Procedures US PELVIS COMPLETE Mike Tovar, DO [address] [facility] [address] [place] [address] Specialty Diagnoses / Procedures Referred By Kai loyola Referred To Contact Dietitian Diagnoses Type 2 diabetes mellitus with hyperglycemia, with long-term current use of insulin (HCC) Class 2 severe obesity due to excess calories with serious comorbidity and body mass index (BMI) of 37.0 to 37.9 in adult (HCC) Cardiomyopathy, peripartum, Dyslipidemia Essential hypertension Ama Vaughn PA-C [address] [place] [address] [facility] [address] [place] [address] Referral ID Status Reason Start Date Expiration Date V isits Requested Visits Authorized [id number] Open Specialty Services Required 11/27/2021 11/27/2022 1 1 Status Reason Specialty Diagnoses / Procedures Referred By Contact Referred To Contact Authorized Specialty Services Required Physical Therapy Diagnoses Acute pain of left knee Procedures 30 visits each discipline calendar year @ 100% medicaid allowed amount Effective 07/30/14 no term date Ama Vaughn PA-C [address] [place] [address] [place] [address] [place] [address] Reason Comments Foot Pain Pt c/o R foot pain s nyla this AM; denies injury, or trauma Specialty Diagnoses / Procedures Referred By Kai loyola Referred To Contact [facility] [address] [place] [address] [facility] [address] [place] [address] Referral ID Status Reason Start Date Expiration Date Visits Re quested Visits Authorized [id number] 1 1 Reason Comments Establish Care Diabetes [...] COMPUTED TOMOGRAPHY THORAX W/O CNTRST Garry Rodriguez, REFRIGERATION INSULATOR.JAVA DEVELOPER [address] [place] [address] [address] Imaging [place] [address] Referral ID Status Reason Start Date Expiration Date V isits Requested Visits Authorized [id number] Closed Auto-Generate d Referral 10/23/2024 12/22/2024 1 1 Reason Onset Date Comments Refill Request 12/04/2024 Reason Comments Electronic Communication Ozempic denied Reason Comments Wellness Reason Comments New Pain Specialty Diagnoses / Procedures Referred By Kai t Referred To Contact Podiatry / [facility] DEPARTMENT Diagnoses Pain of left heel Nodule of skin of left foot Procedures CONSULT TO PODIATRY OFFICE/OUTPATIENT NEW HIGH MDM 60 MINUTES Garry Rodriguez, REFRIGERATION INSULATOR.JAVA DEVELOPER [address] [place] [address] Phone: tel: fax: Emilia Griffiths [address] [address] Phone: tel: fax: Referral ID Status Reason Start Date Expiration Date V isits Requested Visits Authorized [id number] Closed PCP Requested Referral 12/06/2024 12/06/2025 1 [...] Care Teams (unrecognized sec tion and content) Mixer Helper Relationship Specialty Start Date End Date Ama Vaughn PA-C PCP - General Physician Conveyor Line Bakery Worker 08/05/17 Mixer Helper Relationship Specialty Start Date End Date Ama Vaughn PA-C PCP - General Physician Conveyor Line Bakery Worker 08/05/17 Mixer Helper Relationship Specialty Start Date End Date Garry Rodriguez, REFRIGERATION INSULATOR.JAVA DEVELOPER [address] [place], [place] [id number] PCP - General Family Medicine 02/17/23 Mixer Helper Relationship Specialty Start Date End Date Garry Rodriguez, REFRIGERATION INSULATOR.JAVA DEVELOPER [address] [place], [place] [id number] PCP - General Family Medicine 02/17/23 Mixer Helper Relationship Specialty Start Date End Date Garry Rodriguez, REFRIGERATION INSULATOR.JAVA DEVELOPER [address] [place], [place] [id number] PCP - General Family Medicine 02/17/23 Mixer Helper Relationship Specialty Start Date End Date Garry Rodriguez REFRIGERATION INSULATOR.JAVA DEVELOPER [address] [place] [address] PCP - General Family Medicine 02/17/23 Mixer Helper Relationship Specialty Start Date End Date Garry Rodriguez REFRIGERATION INSULATOR.JAVA DEVELOPER [address] [place] [address] PCP - General Family Medicine 02/17/23 Mixer Helper Relationship Specialty Start Date End Date Garry Rodriguez REFRIGERATION INSULATOR.JAVA DEVELOPER [address] [place] [address] PCP - General Family Medicine 02/17/23 Mixer Helper Relationship Specialty Start Date End Date Garry Rodriguez REFRIGERATION INSULATOR.JAVA DEVELOPER [address] [place] [address] PCP - General Family Medicine 02/17/23 Mixer Helper Relationship Specialty Start Date End Date Garry Rodriguez REFRIGERATION INSULATOR.JAVA DEVELOPER [address] [place] [address] PCP - General Family Medicine 02/17/23 Mixer Helper Relationship Specialty Start Date End Date Garry Rodriguez REFRIGERATION INSULATOR.JAVA DEVELOPER [address] [place] [address] PCP - General Family Medicine 02/17/23 Mixer Helper Relationship Specialty Start Date End Date Garry Rodriguez, REFRIGERATION INSULATOR.JAVA DEVELOPER [address] [place] [address] PCP - General Family Medicine 02/17/23 Mixer Helper Relationship Specialty Start Date End Date Garry Rodriguez REFRIGERATION INSULATOR.JAVA DEVELOPER [address] [place] [address] PCP - General Family Medicine 02/17/23 Team Status: Active Member Role Status Dates Garry Rodriguez PROCUREMENT COST COORDINATOR, PROCUREMENT COST COORDINATOR-C Primary Care Provider Active Team Status: Active Member Role Status Dates Placido Pena MD Emergency Provider Active Garry Rodriguez PROCUREMENT COST COORDINATOR, PROCUREMENT COST COORDINATOR-C Primary Care Provider Active Dr. Ha Echevarria MD Admit Provider, Attending Pro vider Active Mixer Helper Relationship Specialty Start Date End Date MeaganchitoJulio CGarry C, REFRIGERATION INSULATOR.JAVA [address] [place] [address] PCP - General Family Medicine 02/17/23 Team Status: Active Member Role Status Dates Placido Pena MD Emergency Provider Active Garry Rodriguez PROCUREMENT COST COORDINATOR, PROCUREMENT COST COORDINATOR-C Primary Care Provider Active Dr. Ha Echevarria MD Admit Provider, Attending Provider, Other Provider Active Dr. Damian Blanco MD Other Provider Active Team Status: Active Member Role Status Dates Placido Pena MD Emergency Provider Active Garry Rodriguez PROCUREMENT COST COORDINATOR, PROCUREMENT COST COORDINATOR-C Primary Care Provider Active Dr. Ha Echevarria MD Admit Provider, Other Provide r Active Dr. Damian Blanco MD Attending Provider, Other Provide r Active Dr. Aj Colon MD Other Provider Active Team Status: Active Member Role Status Dates Placido Pena MD Emergency Provider Active Garry Rodriguez PROCUREMENT COST COORDINATOR, PROCUREMENT COST COORDINATOR-C Primary Care Provider Active Dr. Ha Echevarria MD Admit Provider, Other Provide r Active Dr. Damian Blanco MD Other Provider Active Dr. Aj Colon MD Attending Provider, Other Provider Active Team Status: Inactive Member Role Status Dates Placido Pena MD Emergency Provider Active Garry Rodriguez PROCUREMENT COST COORDINATOR, PROCUREMENT COST COORDINATOR-C Primary Care Provider Active Dr. Ha Echevarria MD Admit Provider, Other Provide r Active Dr. Damian Blanco MD Other Provider Active Dr. Aj Colon MD Attending Provider Active Mixer Helper Relationship Specialty Start Date End Date Meaganchito Garry C, REFRIGERATION INSULATOR.JAVA [address] [place] [address] PCP - General Family Medicine 02/17/23 Mixer Helper Relationship Specialty Start Date End Date Garry Rodriguez, REFRIGERATION INSULATOR.JAVA [address]EL[address] [facility], [place] [id number] PCP - General Family Medicine 02/17/23 Mixer Helper Relationship Specialty Start Date End Date Garry Rodriguez REFRIGERATION INSULATOR.JAVA DEVELOPER [address] [facility], [place] [id number] PCP - General Family Medicine 02/17/23 Team Status: Inactive Member Role Status Dates Garry Rodriguez PROCUREMENT COST COORDINATOR, PROCUREMENT COST COORDINATOR-C Primary Care Provider, Referpeggy do Provider Active Dr. Damian Blanco MD Attending Provider Active Team Status: Inactive Member Role Status Dates Garry Rodriguez PROCUREMENT COST COORDINATOR, PROCUREMENT COST COORDINATOR-C Primary Care Provider Active Alexia Stacy PROCUREMENT COST COORDINATOR, PROCUREMENT COST COORDINATOR-C Attending Provider, Referring Karlos andrews Active Mixer Helper Relationship Specialty Start Date End Date Garry Rodriguez REFRIGERATION INSULATOR.JAVA [address]ELOPER [address] [place] [address] PCP - General Family Medicine 02/17/23 Mixer Helper Relationship Specialty Start Date End Date Garry Rodriguez REFRIGERATION INSULATOR.JAVA [address]ELOPER [address] [place] [address] PCP - General Family Medicine 02/17/23 Mixer Helper Relationship Specialty Start Date End Date Garry Rodriguez, REFRIGERATION INSULATOR.JAVA [address]ELOPER [address] [place] [address] PCP - General Family Medicine 02/17/23 Mixer Helper Relationship Specialty Start Date End Date Garry Rodriguez, REFRIGERATION INSULATOR.JAVA DEVELOPER [address] [place] [address] PCP - General Family Medicine 02/17/23 Team Status: Inactive Member Role Status Dates Garry Rodriguez PROCUREMENT COST COORDINATOR, PROCUREMENT COST COORDINATOR-C Primary Care Provider Active Alexia Kelley CNM Attending Provider, Referring Pro vider Active Mixer Helper Relationship Specialty Start Date End Date Garry Rodriguez REFRIGERATION INSULATOR.JAVA DEVELOPER [address] [place] [address] PCP - General Family Medicine 02/17/23 Mixer Helper Relationship Specialty Start Date End Date Garry Rodriguez REFRIGERATION INSULATOR.JAVA DEVELOPER [address] [place] [address] PCP - General Family Medicine 02/17/23 Mixer Helper Relationship Specialty Start Date End Date Garry Rodriguez REFRIGERATION INSULATOR.JAVA DEVELOPER [address] [place] [address] PCP - General Family Medicine 02/17/23 Mixer Helper Relationship Specialty Start Date End Date Garry Rodriguez REFRIGERATION INSULATOR.JAVA DEVELOPER [address] [place] [address] PCP - General Family Medicine 02/17/23 Mixer Helper Relationship Specialty Start Date End Date Garry Rodriguez, REFRIGERATION INSULATOR.JAVA DEVELOPER [address] [place] [address] PCP - General Family Medicine 02/17/23 Mixer Helper Relationship Specialty Start Date End Date Garry Rodriguez, REFRIGERATION INSULATOR.JAVA DEVELOPER [address] [place] [address] PCP - General Family Medicine 02/17/23 Mixer Helper Relationship Specialty Start Date End Date Garry Rodriguez, REFRIGERATION INSULATOR.JAVA DEVELOPER [address] [place] [address] PCP - General Family Medicine 02/17/23 Mixer Helper Relationship Specialty Start Date End Date Garry Rodriguez APRN.JAVA DEVELOPER [address] [place] [address] PCP - General Family Medicine 02/17/23 Mixer Helper Relationship Specialty Start Date End Date Garry Rodriguez REFRIGERATION INSULATOR.JAVA DEVELOPER [address] [place] [address] PCP - General Family Medicine 02/17/23 Mixer Helper Relationship Specialty Start Date End Date Garry Rodriguez REFRIGERATION INSULATOR.JAVA DEVELOPER [address] [place] [address] PCP - General Family Medicine 02/17/23 Mixer Helper Relationship Specialty Start Date End Date Garry Rodriguez REFRIGERATION INSULATOR.JAVA DEVELOPER [address] [place] [address] PCP - General Family Medicine 02/17/23 Mixer Helper Relationship Specialty Start Date End Date Garry Rodriguez APRN.JAVA DEVELOPER [address] [place] [address] PCP - General Family Medicine 02/17/23 Mixer Helper Relationship Specialty Start Date End Date Garry Rodriguez REFRIGERATION INSULATOR.JAVA DEVELOPER [address] [place] [address] PCP - General Family Medicine 02/17/23 Mixer Helper Relationship Specialty Start Date End Date Garry Rodriguez REFRIGERATION INSULATOR.JAVA DEVELOPER [address] [place] [address] PCP - General Family Medicine 02/17/23 Mixer Helper Relationship Specialty Start Date End Date Garry Rodriguez REFRIGERATION INSULATOR.JAVA DEVELOPER [address] [place], [place] [id number] PCP - General Family Medicine 02/17/23 Mixer Helper Relationship Specialty Start Date End Date Garry Rodriguez, REFRIGERATION INSULATOR.JAVA DEVELOPER [address] [place], [place] [id number] PCP - General Family Medicine 02/17/23 Mixer Helper Relationship Specialty Start Date End Date Garry Rodriguez, REFRIGERATION INSULATOR.JAVA DEVELOPER [address] [place], [place] [id number] PCP - General Family Medicine 02/17/23 Mixer Helper Relationship Specialty Start Date End Date Garry Rodriguez, REFRIGERATION INSULATOR.JAVA DEVELOPER [address] [place], [place] [id number] PCP - General Family Medicine 02/17/23 Mixer Helper Relationship Specialty Start Date End Date Garry Rodriguez, REFRIGERATION INSULATOR.JAVA DEVELOPER [address] [place], [place] [id number] PCP - General Family Medicine 02/17/23 Team Status: Active Member Role/Relationship Status Dates Garry Rodriguez NP, PROCUREMENT COST COORDINATOR-C Primary Care Provider Active Team Status: Inactive Member Role/Relationship Status Dates Garry Rodriguez NP, PROCUREMENT COST COORDINATOR-C Primary Care Provider Active Start: June 20, 2025 End: June 20, 2025 Garry Rodriguez NP, PROCUREMENT COST COORDINATOR-C Referring Provider Active Start: June 20, 2025 End: June 20, 2025 Keenan Lynne NP, PROCUREMENT COST COORDINATOR-C Attending Provider Active S tart: June 20, 2025 End: June 20, 2025 Team Status: Active Member Role/Relationship Status Dates Garry Rodriguez NP, PROCUREMENT COST COORDINATOR-C Primary Care Provider Active Start: July 15, 2025 Dr. Fernando Le MD Emergency Provider Active Start: July 15, 2025 Dr. Denis Watts DO Admit Provider Active Start: July 15, 2025 Dr. Denis Watts DO Attending Provider Active Start: July 15, 2025 Ordered Prescriptions (unrec ognized section and [...] or prosecute any alcohol or drug abuse patient.[facility] HospitalIn the event this information is protected by the Federal Confidentiality of Alcohol and Drug Abuse Patient Records regulations: The Federal rules restrict any use of the information to criminally investigate or prosecute any alcohol or drug abuse patient.[facility] HospitalIn the event this information is protected by the Federal Confidentiality of Alcohol and Drug Abuse Patient Records regulations: The Federal rules restrict any use of the information to criminally investigate or prosecute any alcohol or drug abuse patient.[facility]In the event this information is protected by the Federal Confidentiality of Alcohol and Drug Abuse Patient Records regulations: The Federal rules restrict any use of the information to criminally investigate or prosecute any alcohol or drug abuse patient.[facility] HospitalIn the event this information is protected by the Federal Confidentiality of Alcohol and Drug Abuse Patient Records regulations: The Federal rules restrict any use of the information to criminally investigate or prosecute any alcohol or drug abuse patient.[facility] HospitalIn the event this information is protected by the Federal Confidentiality of Alcohol and Drug Abuse Patient Records regulations: The Federal rules restrict any use of the information to criminally investigate or prosecute any alcohol or drug abuse patient.[facility] HospitalIn the event this information is protected by the Federal Confidentiality of Alcohol and Drug Abuse Patient Records regulations: The Federal rules restrict any use of the information to criminally investigate or prosecute any alcohol or drug abuse patient.[facility] HospitalIn the event this information is protected by the Federal Confidentiality of Alcohol and Drug Abuse Patient Records regulations: The Federal rules restrict any use of the information to criminally investigate or prosecute any alcohol or drug abuse patient.[facility] HospitalIn the event this information is protected by the Federal Confidentiality of Alcohol and Drug Abuse Patient Records regulations: The Federal rules restrict any use of the information to criminally investigate or prosecute any alcohol or drug abuse patient.[facility] HospitalIn the event this information is protected by the Federal Confidentiality of Alcohol and Drug Abuse Patient Records regulations: The Federal rules restrict any use of the information to criminally investigate or prosecute any alcohol or drug abuse patient.[facility] HospitalIn the event this information is protected by the Federal Confidentiality of Alcohol and Drug Abuse Patient Records regulations: The Federal rules restrict any use of the information to criminally investigate or prosecute any alcohol or drug abuse patient.[facility] HospitalIn the event this information is protected by the Federal Confidentiality of Alcohol and Drug Abuse Patient Records regulations: The Federal rules restrict any use of the information to criminally investigate or prosecute any alcohol or drug abuse patient.[facility] HospitalIn the event this information is protected by the Federal Confidentiality of Alcohol and Drug Abuse Patient Records regulations: The Federal rules restrict any use of the information to criminally investigate or prosecute any alcohol or drug abuse patient.[facility] HospitalIn the event this information is protected by the Federal Confidentiality of Alcohol and Drug Abuse Patient Records regulations: The Federal rules restrict any use of the information to criminally investigate or prosecute any alcohol or drug abuse patient.[facility] HospitalIn the event this information is protected by the Federal Confidentiality of Alcohol and Drug Abuse Patient Records regulations: The Federal rules restrict any use of the information to criminally investigate or prosecute any alcohol or drug abuse patient.[facility] HospitalIn the event this information is protected by the Federal Confidentiality of Alcohol and Drug Abuse Patient Records regulations: The Federal rules restrict any use of the information to criminally investigate or prosecute any alcohol or drug abuse patient.[facility] HospitalIn the event this information is protected by the Federal Confidentiality of Alcohol and Drug Abuse Patient Records regulations: The Federal rules restrict any use of the information to criminally investigate or prosecute any alcohol or drug abuse patient.[facility] HospitalIn the event this information is protected by the Federal Confidentiality of Alcohol and Drug Abuse Patient Records regulations: The Federal rules restrict any use of the information to criminally investigate or prosecute any alcohol or drug abuse patient.[facility] HospitalIn the event this information is protected by the Federal Confidentiality of Alcohol and Drug Abuse Patient Records regulations: The Federal rules restrict any use of the information to criminally investigate or prosecute any alcohol or drug abuse patient.[facility] HospitalIn the event this information is protected by the Federal Confidentiality of Alcohol and Drug Abuse Patient Records regulations: The Federal rules restrict any use of the information to criminally investigate or prosecute any alcohol or drug abuse patient.[facility] HospitalIn the event this information is protected by the Federal Confidentiality of Alcohol and Drug Abuse Patient Records regulations: The Federal rules restrict any use of the information to criminally investigate or prosecute any alcohol or drug abuse patient.[facility] HospitalIn the event this information is protected by the Federal Confidentiality of Alcohol and Drug Abuse Patient Records regulations: The Federal rules restrict any use of the information to criminally investigate or prosecute any alcohol or drug abuse patient.[facility] HospitalIn the event this information is protected by the Federal Confidentiality of Alcohol and Drug Abuse Patient Records regulations: The Federal rules restrict any use of the information to criminally investigate or prosecute any alcohol or drug abuse patient.[facility] HospitalIn the event this information is protected by the Federal Confidentiality of Alcohol and Drug Abuse Patient Records regulations: The Federal rules restrict any use of the information to criminally investigate or prosecute any alcohol or drug abuse patient.[facility] HospitalIn the event this information is protected by the Federal Confidentiality of Alcohol and Drug Abuse Patient Records regulations: The Federal rules restrict any use of the information to criminally investigate or prosecute any alcohol or drug abuse patient.[facility] HospitalIn the event this information is protected by the Federal Confidentiality of Alcohol and Drug Abuse Patient Records regulations: The Federal rules restrict any use of the information to criminally investigate or prosecute any alcohol or drug abuse patient.[facility] HospitalIn the event this information is protected by the Federal Confidentiality of Alcohol and Drug Abuse Patient Records regulations: The Federal rules restrict any use of the information to criminally investigate or prosecute any alcohol or drug abuse patient.[facility] HospitalIn the event this information is protected by the Federal Confidentiality of Alcohol and Drug Abuse Patient Records regulations: The Federal rules restrict any use of the information to criminally investigate or prosecute any alcohol or drug abuse patient.[facility] HospitalIn the event this information is protected by the Federal Confidentiality of Alcohol and Drug Abuse Patient Records regulations: The Federal rules restrict any use of the information to criminally investigate or prosecute any alcohol or drug abuse patient.[facility] HospitalIn the event this information is protected by the Federal Confidentiality of Alcohol and Drug Abuse Patient Records regulations: The Federal rules restrict any use of the information to criminally investigate or prosecute any alcohol or drug abuse patient.[facility] HospitalIn the event this information is protected by the Federal Confidentiality of Alcohol and Drug Abuse Patient Records regulations: The Federal rules restrict any use of the information to criminally investigate or prosecute any alcohol or drug abuse patient.[facility] HospitalIn the event this information is protected by the Federal Confidentiality of Alcohol and Drug Abuse Patient Records regulations: The Federal rules restrict any use of the information to criminally investigate or prosecute any alcohol or drug abuse patient.[facility] HospitalIn the event this information is protected by the Federal Confidentiality of Alcohol and Drug Abuse Patient Records regulations: The Federal rules restrict any use of the information to criminally investigate or prosecute any alcohol or drug abuse patient.[facility] HospitalIn the event this information is protected by the Federal Confidentiality of Alcohol and Drug Abuse Patient Records regulations: The Federal rules restrict any use of the information to criminally investigate or prosecute any alcohol or drug abuse patient.[facility] HospitalIn the event this information is protected by the Federal Confidentiality of Alcohol and Drug Abuse Patient Records regulations: The Federal rules restrict any use of the information to criminally investigate or prosecute any alcohol or drug abuse patient.[facility] HospitalIn the event this information is protected by the Federal Confidentiality of Alcohol and Drug Abuse Patient Records regulations: The Federal rules restrict any use of the information to criminally investigate or prosecute any alcohol or drug abuse patient.[facility] HospitalIn the event this information is protected by the Federal Confidentiality of Alcohol and Drug Abuse Patient Records regulations: The Federal rules restrict any use of the information to criminally investigate or prosecute any alcohol or drug abuse patient.[facility] HospitalIn the event this information is protected by the Federal Confidentiality of Alcohol and Drug Abuse Patient Records regulations: The Federal rules restrict any use of the information to criminally investigate or prosecute any alcohol or drug abuse patient.[facility] HospitalIn the event this information is protected by the Federal Confidentiality of Alcohol and Drug Abuse Patient Records regulations: The Federal rules restrict any use of the information to criminally investigate or prosecute any alcohol or drug abuse patient.[facility] HospitalIn the event this information is protected by the Federal Confidentiality of Alcohol and Drug Abuse Patient Records regulations: The Federal rules restrict any use of the information to criminally investigate or prosecute any alcohol or drug abuse patient.[facility] HospitalIn the event this information is protected by the Federal Confidentiality of Alcohol and Drug Abuse Patient Records regulations: The Federal rules restrict any use of the information to criminally investigate or prosecute any alcohol or drug abuse patient.[facility] HospitalIn the event this information is protected by the Federal Confidentiality of Alcohol and Drug Abuse Patient Records regulations: The Federal rules restrict any use of the information to criminally investigate or prosecute any alcohol or drug abuse patient.[facility] HospitalIn the event this information is protected by the Federal Confidentiality of Alcohol and Drug Abuse Patient Records regulations: The Federal rules restrict any use of the information to criminally investigate or prosecute any alcohol or drug abuse patient.[facility] HospitalIn the event this information is protected by the Federal Confidentiality of Alcohol and Drug Abuse Patient Records regulations: The Federal rules restrict any use of the information to criminally investigate or prosecute any alcohol or drug abuse patient.[facility] HospitalIn the event this information is protected by the Federal Confidentiality of Alcohol and Drug Abuse Patient Records regulations: The Federal rules restrict any use of the information to criminally investigate or prosecute any alcohol or drug abuse patient.[facility] HospitalIn the event this information is protected by the Federal Confidentiality of Alcohol and Drug Abuse Patient Records regulations: The Federal rules restrict any use of the information to criminally investigate or prosecute any alcohol or drug abuse patient.[facility] HospitalIn the event this information is protected by the Federal Confidentiality of Alcohol and Drug Abuse Patient Records regulations: The Federal rules restrict any use of the information to criminally investigate or prosecute any alcohol or drug abuse patient.[facility] HospitalIn the event this information is protected by the Federal Confidentiality of Alcohol and Drug Abuse Patient Records regulations: The Federal rules restrict any use of the information to criminally investigate or prosecute any alcohol or drug abuse patient.[facility] HospitalIn the event this information is protected by the Federal Confidentiality of Alcohol and Drug Abuse Patient Records regulations: The Federal rules restrict any use of the information to criminally investigate or prosecute any alcohol or drug abuse patient.[facility] HospitalIn the event this information is protected by the Federal Confidentiality of Alcohol and Drug Abuse Patient Records regulations: The Federal rules restrict any use of the information to criminally investigate or prosecute any alcohol or drug abuse patient.[facility] HospitalIn the event this information is protected by the Federal Confidentiality of Alcohol and Drug Abuse Patient Records regulations: The Federal rules restrict any use of the information to criminally investigate or prosecute any alcohol or drug abuse patient.[facility] Goals (unrecognized section and content) Goals may be documented in a n alternate section No data available for this section No data available for this section No data available for this section No data available for this sectionGoals may be documented in an alternate sectionGoals may be documented in an alternate [...] BE BASED ON THE PRIMARY CLINICAL RECORDS. [employer] provides no warranty or guarantee of the accuracy or completeness of information in this document.
--- OUTSIDE RECORDS SUMMARY | 2025-07-15 05:28 | XMS RPT_ITS | CCD ---
Author Organization [facility] CliniSynj Care Team Providers Care Commercial Real Estate Broker Name Role Phone LISSA ELLIOTT Unavailable Unavailable CHICO PARADA Unavailable Unavailable Augusta-Yelitza, Ama Primary Care Provider [phone] Augusta-Yelitza, Ama Primary Care Provider Required, No Pcp Unavailable Unavailable Marquise Pena Unavailable Unavailable Augusta-Yelitza PA-C, Ama Primary Care Provider Augusta-Yelitza PA-C, Ama Primary Care Provider Augusta-Yelitza PA-C, Ama Primary Care Provider AUGUSTA-YELITZA, AMA Primary Care Unavailabl e AUGUSTA-YELITZA, AMA Referring Unavailabl e AUGUSTA-YELITZA, AMA Primary Care Unavailabl e Garry Rodriguez APRN.CNP Primary Care Provider MD Placido Pena Emergency Provider Arturo CLERK OF COURT, CLERK OF COURT-C Garry Primary Care Provider Dr. Ha Echevarria Admit Provider [phone] Ha Echevarria Attending Provider Dr. Ha Echevarria Other Provider Dr. Damian Blanco Other Provider Dr. Damian Blanco Attending Provider Dr. Aj Colon Other Provider Dr. Aj Colon Attending Provider Arturo CLERK OF COURT, CLERK OF COURT-C Garry Referring Provider MD Placido Pena Emergency Provider Trill CLERK OF COURT, CLERK OF COURT-C Garry Primary Care Provider [phone] Dr. Ha Echevarria Admit Provider Dr. Ha Echevarria Attending Provider Dr. Ha Echevarria Other Provider Dr. Damian Blanco Other Provider Dr. Damian Blanco Attending Provider Dr. Aj Colon Other Provider Dr. Aj Colon Attending Provider Trill CLERK OF COURT, CLERK OF COURT-C Garry Referring Provider TRILL ABLE BODIED SEAMAN-CHURCH OFFICIAL, PIERO Momin Primary Care Physician Trill ABLE BODIED SEAMAN.CHURCH OFFICIAL, Garry C Primary Care Provider ANALI DAWSON, KRISTYN Attending Unavailable TRILL ABLE BODIED SEAMAN-CHURCH OFFICIAL, PIERO Momin Primary Care Gabriele BRIONES MD, KRISTYN Attending Unavailable TRILL ABLE BODIED SEAMAN-CHURCH OFFICIAL, PIERO Momin Primary Care Unavai lable TRILL ABLE BODIED SEAMAN-CHURCH OFFICIAL, PIERO Momin Primary Care Unavabrittaney BRIONES MD, KRISTYN Attending Unavailable ANALI DAWSON, KRISTYN Attending Unavailable TRILL ABLE BODIED SEAMAN-CHURCH OFFICIAL, PIERO Momin Primary Care Unavai lable TRILL ABLE BODIED SEAMAN-CHURCH OFFICIAL, PIERO Momin Primary Care Unavai lable BEITLER ABLE BODIED SEAMAN-CNM, JESSICA Morales Attending Unav ailable TRILL ABLE BODIED SEAMAN-CHURCH OFFICIAL, PIERO Momin Primary Care Gabriele BRIONES MD, KRISTYN Attending Unavailable ANALI DAWSON, KRITSYN Attending Unavailable TRILL ABLE BODIED SEAMAN-CHURCH OFFICIAL, PIERO C Primary Care Unavai lable TRILL, [...] TRILL, GARRY C Primary Care Unavailable Trill CLERK OF COURT-C, Garry Primary Care Provider Trill CLERK OF COURT-C, Garry Referring Provider [phone]-C, Keenan Hickman Attending Provider [phone], Garry Primary Care Unavailable Roof CLERK OF COURT, Keenan Hickman Attending Unavailable Trill CLERK OF COURT, Garry Referring Unavailable Trill CLERK OF COURT, Garry Primary Care Unavailable Roof CLERK OF COURT, Keenan Hickman Attending Unavailable Trill CLERK OF COURT, Garry Referring Unavailable Stacy CLERK OF COURTAlexia Attending Unavailable Trill CLERK OF COURT, Garry Referring Unavailable Trill CLERK OF COURT, Garry Primary Care Unavailable Rey DAWSON, Dr. [...] to drug 6 Hives, Itching, Weal (disorder) [employer] Phone: (13 sources) Penicillins; Translations: [PENICILLINS] Propensity to adverse reactions to drug 1 Anaphylaxis [employer] Phone: (1 source) Metformin And Related Propensity to adverse reactions to drug 0 Diarrhea [facility] [place] [place] (4 sources) Penicillin; Translations: [penicillin] Drug Allergy Unknown (qualifier value) [facility] (20 sources) Penicillins Drug Allergy 2 Unknown [facility] Work Phone: (6 sources) Penicillins Propensity to adverse reactions 3 UNKNOWN [facility] (12 sources) Penicillins Drug Allergy 2 Unknown [facility] Work Phone: (1 source) Latex Drug allergy (disorder) 5 [facility] (1 source) Penicillins Drug allergy (disorder) 5 [facility] Medications Current Medications Medication Drug Class(es) [...] hyperglycemia, without long-term current use of insulin ([facility]) Inject 0.25 mg subcutaneously one time a week. 3 mL 2 12/06/2024 06/04/2025 Active Start: 03-23-2023 End: 03-31-2023 semaglutide (OZEMPIC) 0.25 m g or 0.5 mg (2 mg/3 mL) pen Indications: Type 2 diabetes mellitus with hyperglycemia, with long-term current use of insulin ([facility]) , Obesity, Class II, BMI 35-39.9 Inject 0.25 mg subcutaneously one time a week. 3 mL 1 03/23/2023 03/31/2023 Discontinued Start: 03-23-2023 End: 06-21-2023 semaglutide (OZEMPIC) 0.25 m g or 0.5 mg (2 mg/3 mL) pen Indications: Type 2 diabetes mellitus with hyperglycemia, with long-term current use of insulin ([facility]) , Obesity, Class II, BMI 35-39.9 Inject 0.25 mg subcutaneously one time a week. 3 mL 1 03/23/2023 06/21/2023 Active Start: 02-22-2023 End: 03-23-2023 semaglutide (OZEMPIC) 0.25 m g or 0.5 mg (2 mg/3 mL) pen Indications: Type 2 diabetes mellitus with hyperglycemia, with long-term current use of insulin ([facility]) , Obesity, Class II, BMI 35-39.9 Inject 0.25 mg subcutaneously one time a week. 3 mL 1 02/22/2023 03/23/2023 Discontinued Start: 02-22-2023 End: 05-23-2023 semaglutide (OZEMPIC) 0.25 m g or 0.5 mg (2 mg/3 mL) pen Indications: Type 2 diabetes mellitus with hyperglycemia, with long-term current use of insulin (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 / Z79.01(ICD-9) Onset: [...] sources) Long-term current use of anticoagulant; Translations: [shelter (current) use of anticoagulants] Onset: 08-30-2012 Resolved: 06-14-2019 06-14-2019 Episodic Other aftercare (2 sources) Anticoagulant effect; Translations: [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] Onset: 11-12-2011 11-12-2011 [...] Auto (Unsp spec) [#/Vol] 1.36 10*3/uL 0.83-4.51 [facility] Absolute neutrophil countOrd ered By: Fernando Le on 07-15-2025 Neutrophils (Bld) [#/Vol] 4.6 10*3/uL 2.0-7.7 [facility] Activated partial thrombopla stin time (aPTT) in platelet poor plasma by coagulation aOrdered By: Fernando Le on 07-15-2025 aPTT Coag (PPP) [Time] 24.7 s 24.1-36.2 [facility] Anion gap in Serum or Plasma Ordered By: Fernando Le on 07-15-2025 Anion gap [Moles/Vol] 13 mmol/L 5-15 [facility] Automated lymphocyte count a s percentage of total leukocytesOrdered By: Fernando Le on 07-15-2025 Lymphocytes/100 WBC Auto (Unsp spec) 20.2 % 19-41 [facility] BUN/creatinine ratioOrdered By: Fernando Le on 07-15-2025 Urea nitrogen/Creatinine [Mass ratio] 11.0 mg/mg 10-20 [facility] Basophil percentageOrdered B y: Fernando Le on 07-15-2025 Basophils/100 WBC (Bld) 0.6 % 0-1 [facility] Carbon dioxide, total [Moles /volume] in Central venous bloodOrdered By: Fernando Le on 07-15-2025 CO2 [Moles/Vol] 20.8 mmol/L Low 21.0-32.0 [facility] Chloride assayOrdered By: Ruslan Le on 07-15-2025 Chloride [Moles/Vol] 100 mmol/L 98-108 [facility] Eosinophil percentageOrdered By: Fernando Le on 07-15-2025 Eosinophils/100 WBC (Bld) 1.9 % 0-5 [facility] Erythrocyte distribution wid th ratioOrdered By: Fernando Le on 07-15-2025 Erythrocyte distribution width (RBC) [Ratio] 13.6 % 11.6-14.6 [facility] Erythrocyte distribution wid th standard deviationOrdered By: Fernando Le on 07-15-2025 Erythrocyte distribution width (RBC) [Ratio] 41.3 fl 35.1-43.9 [facility] Glomerular filtration rate ( GFR) estimation/1.73 sq m using serum, plasma, or whole bOrdered By: Fernando Le on 07-15-2025 GFR/1.73 sq M.predicted among non-blacks MDRD (S/P/Bld) [Vol rate/Area] 62 mL/min/{1.73_m2} >60 [facility] Comment on above: mL/min/1.73m2 CKD-EP I Creatinine Equation (2020) Hematocrit Auto (Bld) [Volum e fraction]Ordered By: Fernando Le on 07-15-2025 Hematocrit (Bld) [Volume fraction] 43.5 % 37-47 [facility] Hemoglobin measurementOrdere d By: Fernando Le on 07-15-2025 Hemoglobin (Bld) [Mass/Vol] 14.3 g/dL 12.0-15.0 [facility] Immature granulocytes/100 WB C Auto (Bld)Ordered By: Fernando Le on 07-15-2025 Immature granulocytes/100 WBC (Bld) 0.400 % 0.0-0.9 [facility] Comment on above: IG% - Immature Granu locytes (promyelocytes, myelocytes and metamyelocytes) > 1% indicates that a LEFT SHIFT is Present. International normalized rat io (INR) calculationOrdered By: Fernando Le on 07-15-2025 INR Coag (Bld) [Relative time] 1.0 {INR} [facility] MCV (mean corpuscular volume ) determinationOrdered By: Fernando Le on 07-15-2025 MCV (RBC) [Entitic vol] 83.0 fL 81-99 [facility] Mean corpuscular hemoglobin (MCH) determinationOrdered By: Fernando Le on 07-15-2025 MCH (RBC) [Entitic mass] 27.3 pg 27.0-32.0 [facility] Mean corpuscular hemoglobin concentration (MCHC) determinationOrdered By: Fernando Le on 07-15-2025 MCHC (RBC) [Mass/Vol] 32.9 g/dL 32-36 [facility] Mean platelet volume determi nationOrdered By: Fernando Le on 07-15-2025 Platelet mean volume (Bld) [Entitic vol] 9.8 fL 6.2-12.0 [facility] Monocyte percentageOrdered B y: Fernando Le on 07-15-2025 Monocytes/100 WBC (Bld) 8.6 % 0-10 [facility] Neutrophil percentageOrdered By: Fernando Le on 07-15-2025 Neutrophils/100 WBC (Bld) 68.3 % 47-70 [facility] Nucleated red blood cell per centageOrdered By: Fernando Le on 07-15-2025 Nucleated RBC/100 WBC (Bld) [Ratio] 0 % 0-5 [facility] Platelet countOrdered By: Ruslan Le on 07-15-2025 Platelets (Bld) [#/Vol] 347 10*3/uL 150-450 [facility] Potassium measurement (mass/ volume)Ordered By: Fernando Le on 07-15-2025 Potassium (Unsp spec) [Mass/Vol] 3.8 mmol/L 3.3-5.1 [facility] Prothrombin timeOrdered By: Fernando Le on 07-15-2025 PT Coag (PPP) [Time] 13.0 s 11.7-14.9 [facility] RBC Auto (Bld) [#/Vol]Ordere d By: Fernando Le on 07-15-2025 RBC (Bld) [#/Vol] 5.24 10*6/uL 4.2-5.4 [facility] Serum creatinine measurement (mass/volume)Ordered By: Fernando Le on 07-15-2025 Creatinine [Mass/Vol] 1.13 mg/dL 0.70-1.20 [facility] Serum glucose measurement (m ass/volume)Ordered By: Fernando Le on 07-15-2025 Glucose [Mass/Vol] 301 mg/dL High 70-99 [facility] Serum or plasma calcium lamar urement (mass/volume)Ordered By: Fernando Le on 07-15-2025 Calcium [Mass/Vol] 9.6 mg/dL 7.6-11.0 [facility] Serum or plasma ethanol lamar urement (mass/volume)Ordered By: Denis Barbosa on 07-15-2025 Ethanol [Mass/Vol] mg/dL <10.1 [facility] Comment on above: This test is for med ical purposes only. The legal definition of intoxication varies according to local law. Serum or plasma urea nitroge n measurement (mass/volume)Ordered By: Fernando Le on 07-15-2025 Urea nitrogen [Mass/Vol] 12 mg/dL 4-19 [facility] Sodium levelOrdered By: Walt Le on 07-15-2025 Sodium [Moles/Vol] 134 mmol/L 133-145 [facility] Troponin T.cardiac [Mass/vol ume] in Serum or Plasma by High sensitivity methodOrdered By: Fernando Le on 07-15-2025 Troponin T.cardiac High sensitivity method [Mass/Vol] 9 ng/L <14 [facility] Troponin T.cardiac High sensitivity method [Mass/Vol] 13 ng/L <14 [facility] White blood cell (WBC) count Ordered By: Fernando Le on 07-15-2025 WBC (Bld) [#/Vol] 6.7 10*3/uL 4.4-11.0 [facility] Cardiology Visit Reporton Cardiology Visit Report [facility] [address] [place] [address] OFFICE VISIT Date of Service: 06/20/25 MR#: [id number] Acct: [id number] Name: PATT CRANE Rep #: [id number] : 1980 Provider: ODALYS venegas Age/Sex: 45/F [place] [facility] [facility] [place] Status: Signed HPI HPI History [...] cuff Intake Visit Reasons: 6 M FU Publications Distribution Clerk Required: No Is patient in pain?: No [...] for rash Cardio (more content not included)... [facility] [id number] 05-31-2025 [id number] HNO ID: [id number] Author: FEDERICO AMBRIZ PT Service: ? Author Type: Physical Therapist Type: [id number] Filed: 05/31/2025 15:03 Note Text: [facility] Physical Therapy Plan of Care Certification Patient Name: Patt Crane : 1980 [facility] #: [id number] Date: 05/30/2025 To: Emilia Griffiths DPM From Therapist: Federico Ambriz PT RE: Patient Certification/ Recertification Your review, approval and electronic signature are required in order to comply with Payor: [employer] [place] MEDICA[place] / Plan: [facility] / Product Type: Medicaid / [...] T-score by a minimum 5 points. Improved [place] in home exercise program. Currently met Patient [...] Patient to be seen for Therapeutic exercise (41183), Neuromuscular re-education (39557), Therapeutic activities (31179), Manual therapy (35222), Self-long term management (49000), Gait Training (92464), Patient/Family/Caregiv er Education, Body Mechanics Training PLAN FOR NEXT VISIT: Continue manual as needed, progress stretching to strength per tolerance For further details regarding this patient refer to the Physical Therapy electronically documented visit dated 05/30/2025. Provider Attestation I have reviewed the treatment plan for Patt Crane [facility]# [id number] for the period of 05/30/25 -- 07/31/25, established on 05/30/2025. Signature certifies the need for therapy services. [facility] CNTHERAPYon 05-30-2025 CNTHERAPY OT/PT/Speech Visit (PTWS) PATT CRANE ([id number]) 1980 F Date Time Provider Department 05/30/25 8:15 AM FEDERICO AMBRIZ PTWS Date Time Provider Department Center 05/30/2025 8:15 AM [id number], SEAN PTWS Sanjuana Galeas Reason for Visit: [...] - Blood-Glucose Meter 1 Units once daily. Computer Project Manager: Addendum Therapy (PT/OT/Speech/Resp) ID: [id number] 05/30/2025 8:48 AM Author: FEDERICO AMBRIZ Signed by FEDERICO AMBRIZ PT on 05/30/2025 at 8:48 AM * * * This document replaces document [id number] * * * Document text: Program_ID:[id number] Access Code: [email or web address] URL: [email or web address] [employer]/ Date: 05-30-2025 Prepared By: Federico Ambriz Program [...] 3 sets - 10 reps -- [facility] THERAPY NTon 05-30-2025 THERAPY NT HNO ID: [id number] Author: FEDERICO AMBRIZ PT Service: ? Author Type: Physical Therapist Type: Therapy (PT/OT/Speech/Resp) Filed: 05/30/2025 08:48 Note Text: Program_ID:[id number] Access Code: [email or web address] URL: [email or web address] [employer]/ Date: 05-30-2025 Prepared By: Federico Ambriz Program [...] - 3 sets - 10 reps [facility] CNCOon 05-15-2025 CNCO Letter Text [facility] CNOVon 04-30-2025 CNOV Office Visit (PODIWS ) PATT CRANE ([id number]) 1980 F Date Time Provider Department 04/30/25 [...] time on their feet, such as nurses, waiter/waitress room service/waiters, and mail carriers, often experience plantar fasciitis. [...] after 2-3 (more content not included)... [facility] [id number] 04-11-2025 [id number] O ID: [id number] Author: FEDERICO AMBRIZ PT Service: ? Author Type: Physical Therapist Type: [id number] Filed: 04/11/2025 13:00 Note Text: [facility] Physical Therapy Plan of Care Certification Patient Name: Patt Crane : 1980 [facility] #: [id number] Date: 04/11/2025 To: Emilia Griffiths DPM From Therapist: Federico Ambriz PT RE: Patient Certification/ Recertification Your review, approval and electronic signature are required in order to comply with Payor: [employer] [place] / Plan: [employer] [place] / Product Type: Medicaid / regulations. [...] increase T-score by a minimum 5 points. [place] in home exercise program. Patient will decrease [...] Planned: 6 Planned Treatment Interventions: Therapeutic exercise (24933), Neuromuscular re-education (07142), Manual therapy (29166), Therapeutic activities (96861), Self-long term management (81367), Gait Training (54822), Patient/Family/Caregiv er Education, Body Mechanics Training PLAN [...] the treatment plan for Patt Crane CC# [id number] for the period of 04/11/25 -- 05/23/25, established on 04/11/2025. Signature certifies the need for therapy services. [facility] CNTHERAPYon 04-11-2025 CNTHERAPY OT/PT/Speech Visit (PTWS) PATT CRANE ([id number]) 1980 F Date Time Provider Department 04/11/25 11:15 AM FEDERICO AMBRIZ PTHIEU Date Time Provider Department Center 04/11/2025 11:15 AM [id number], SEAN PTHIEU Galeas Reason for Visit: PT Eval [747] Visit Diagnoses:Pain of left heel [M79.672] Plantar fasciitis [M72.2] Allergies As of Date: 04/11/2025 Noted Allergy Reaction LATEX 04/30/2016 4 - Hives 9 - Itching PENICILLINS 09/06/2012 16 - Unknown Date Reviewed: 04/09/2025 Reviewed by: Garry Rodriguez APRN.CHURCH OFFICIAL - Fully Assessed Prescriptions as of 04/11/2025 [...] - Blood-Glucose Meter 1 Units once daily. Computer Project Manager: Addendum Therapy (PT/OT/Speech/Resp) ID: [id number] 04/11/2025 11:45 AM Author: FEDERICO AMBRIZ Signed by FEDERICO AMBRIZ PT on 04/11/2025 at 11:45 AM * * * This document replaces document [id number] * * * Document text: Program_ID:[id number] Access Code: [email or web address] URL: [email or web address] Date: 04-11-2025 Prepared By: Federico Ambriz Program [...] 3 sets - 20 reps -- [facility] THERAPY NTon 04-11-2025 THERAPY NT HNO ID: [id number] Author: FEDERICO AMBRIZ PT Service: ? Author Type: Physical Therapist Type: Therapy (PT/OT/Speech/Resp) Filed: 04/11/2025 11:45 Note Text: Program_ID:[id number] Access Code: [email or web address] URL: [email or web address] Date: 04-11-2025 Prepared By: Federico Ambriz Program [...] - 3 sets - 20 reps [facility] CNOVon 04-09-2025 CNOV Office Visit (AGFAMPLE) PATT CRANE ([id number]) 1980 F Date Time Provider Department 04/09/25 3:40 PM GARRY RODRIGUEZ During your visit today, we recorded the following information about you: Temperature Pulse Blood pressure Weight 98 degrees 103/minute 188/98 92.1 kg Height 1.6 m Garry Rodriguez APRN.CHURCH OFFICIAL 04/09/2025 4:17 PM Signed Subjective The patient consented to the use of [employer] software for draft documentation of the visit consistent with [facility]?s Notice of Privacy Practices. HPI Patt [...] issues. Patt's Jardiance is prescribed by her sliver former, Keenan JARVIS, due to her history of cardiomyopathy, CVA, and NSTEMI. Her most recent visit with cardiology was on December 13, 2024. She experienced an NSTEMI in July 2023, with a cardiac catheterization revealing no obstructive stenosis and an ejection fraction of 20%. The DC was likely secondary to demand ischemia from [...] for sh (more content not included)... [facility] HEMOGLOBIN A1C (POC)on 04-09 HbA1c (Bld) [Mass fraction] 10.6 % Abnormal 4.3 - 5.6 % [facility] Comment on above: Location:[facility], [address] [place] [address], [address] Point of care (POC) Hemoglobin A1c (HGBA1C) [...] specific diabetes management situations: The POC device surgical instrument maker provides a normal range of 4.2% to 6.5% for the HGBA1C POC test. However, the [place] [employer] guidelines indicate that patients with [...] Interpretation and review of laboratory results Abnormal [facility] CNCOon 03-26-2025 CNCO Letter Text [facility] CNOVon 03-26-2025 CNOV Office Visit (PODIWS ) PATT CRANE ([id number]) 1980 F Date Time Provider Department 03/26/25 [...] time on their feet, such as nurses, waiter/waitress room service/waiters, and mail carriers, often experience plantar fasciitis. [...] local anesthe (more content not included)... [facility] CBC panel Auto (Bld)on 03-22 Erythrocyte distribution width (RBC) [Ratio] 14.7 % Normal 11.5-15.0 [facility] Comment on above: Order Comment: Speci men Type: BLOOD SPECIMENOrdering Facility: [facility] Address: [address] [place] [address] Performed By: #### 5 8410-2 ####[facility]AGE HOSPITALJULIENNEJose Miguel [id number] [address] [facility] Hematocrit (Bld) [Volume fraction] 44.0 % Normal 36.0-46.0 [facility] Comment on above: Order Comment: Speci men Type: BLOOD SPECIMENOrdering Facility: [facility] Address: [address] [place], [place] [address] Performed By: #### 5 8410-2 ####HER[facility]AGE HOSPITALJACE [id number] [place] [address] [place] Hemoglobin (Bld) [Mass/Vol] 14.1 g/dL Normal 11.5-15.5 [facility] Comment on above: Order Comment: Speci men Type: BLOOD SPECIMENOrdering Facility: [facility] Address: [address] [place] [address] Performed By: #### 5 8410-2 ####HERITAGE HOSPITALJULIENNELIA [id number] [place] [address] [place] MCH (RBC) [Entitic mass] 26.6 pg Normal 26.0-34.0 [facility] Comment on above: Order Comment: Speci men Type: BLOOD SPECIMENOrdering Facility: [facility] Address: [address] [place] [address] Performed By: #### 5 8410-2 ####HERITAGE HOSPITALJULIENNELIA [id number] [place] [address] [place] MCHC (RBC) [Mass/Vol] 32.0 g/dL Normal 30.5-36.0 [facility] Comment on above: Order Comment: Speci men Type: BLOOD SPECIMENOrdering Facility: [facility] Address: [address] [place] [address] Performed By: #### 5 8410-2 ####HER[facility]AGE HOSPITALNCLIA [id number] [place] [address] [place] MCV (RBC) [Entitic vol] 83.0 fL Normal 80.0-100.0 [facility] Comment on above: Order Comment: Speci men Type: BLOOD SPECIMENOrdering Facility: [facility] Address: [address] [place] [address] Performed By: #### 5 8410-2 ####[facility] HOSPITALNCLIA [id number] [place] [address] [place] Nucleated RBC (Bld) [#/Vol] 10*3/uL Normal <0.01 [facility] Comment on above: Order Comment: Speci men Type: BLOOD SPECIMENOrdering Facility: [facility] Address: [address] [place] [address] Performed By: #### 5 8410-2 ####[facility] SANJUANA KEITHNCCAMERON [id number] [place] [address] [place] Platelet mean volume (Bld) [Entitic vol] 9.5 fL Normal 9.0-12.7 [facility] Comment on above: Order Comment: Speci men Type: BLOOD SPECIMENOrdering Facility: [facility] Address: [address] [place] [address] Performed By: #### 5 8410-2 ####HERITAGE HOSPITALNCTRAN [id number] [place] [address] [place] Platelets (Bld) [#/Vol] 383 10*3/uL Normal 150-400 [facility] Comment on above: Order Comment: Speci men Type: BLOOD SPECIMENOrdering Facility: [facility] Address: [address] [place] [address] Performed By: #### 5 8410-2 ####[facility] HOSPITALNCLIA [id number] [place] [address] [place] RBC (Bld) [#/Vol] 5.30 10*6/uL High 3.90-5.20 [facility] Comment on above: Order Comment: Speci men Type: BLOOD SPECIMENOrdering Facility: [facility] Address: [address] [place] [address] Performed By: #### 5 8410-2 ####[facility]ITALNCLIA [id number] [place] [address] [place] WBC (Bld) [#/Vol] 6.05 10*3/uL Normal 3.70-11.00 [facility] Comment on above: Order Comment: Speci men Type: BLOOD SPECIMENOrdering Facility: [facility] Address: [address] [place] [address] Performed By: #### 5 8410-2 ####[facility] KEITHNCLIA [id number] [place] [address] [place] Comprehensive metabolic 2000 panelon 03-22-2025 Albumin [Mass/Vol] 4.3 g/dL Normal 3.9-4.9 [facility] Comment on above: Order Comment: Speci men Type: BLOOD SPECIMENOrdering Facility: [facility] Address: [address] [place] [address] Performed By: #### 2 777-1, 99684-7, 71283-7 ####[facility] FRANCISCOSavannahNCTRANA [id number] [place] [address] [place] ALP [Catalytic activity/Vol] 90 U/L Normal 34-123 [facility] Comment on above: Order Comment: Speci men Type: BLOOD SPECIMENOrdering Facility: [facility] Address: [address] [place] [address] Performed By: #### 2 777-1, 37040-7, 19099-0 ####[facility] FRANCISCOQUINCYJULIENNETRANA [id number] [place] [address] [place] ALT [Catalytic activity/Vol] 12 U/L Normal 7-38 [facility] Comment on above: Order Comment: Speci men Type: BLOOD SPECIMENOrdering Facility: [facility] Address: [address] [place] [address] Performed By: #### 2 777-1, 90196-1, 38573-1 ####[facility] FRANCISCOQUINCYNCLIA [id number] [place] [address] [place] Anion gap [Moles/Vol] 8 mmol/L Normal 8-15 [facility] Comment on above: Order Comment: Speci men Type: BLOOD SPECIMENOrdering Facility: [facility] Address: [address] [place] [address] Performed By: #### 2 777-1, 15202-1, 13307-5 ####[facility] KEITHNCTRANA [id number] [place] [address] [place] AST [Catalytic activity/Vol] 10 U/L Low 13-35 [facility] Comment on above: Order Comment: Speci men Type: BLOOD SPECIMENOrdering Facility: [facility] Address: [address] [place] [address] Performed By: #### 2 777-1, 21178-1, 05633-1 ####[facility] FRANCISCOSavannahNCTRANA [id number] [place] [address] [place] Bilirubin [Mass/Vol] 0.4 mg/dL Normal 0.2-1.3 [facility] Comment on above: Order Comment: Speci men Type: BLOOD SPECIMENOrdering Facility: [facility] Address: [address] [place], [place] [address] Performed By: #### 2 777-1, 87539-8, 61724-9 ####[facility] FRANCISCOQUINCYNCTRANA [id number] [place] [address] [place] Calcium [Mass/Vol] 9.5 mg/dL Normal 8.5-10.2 [facility] Comment on above: Order Comment: Speci men Type: BLOOD SPECIMENOrdering Facility: [facility] Address: [address] [place] [address] Performed By: #### 2 777-1, 67651-2, 72625-9 ####[facility] HOSPITALNCLIA [id number] [place] [address] [place] Chloride [Moles/Vol] 102 mmol/L Normal 98-107 [facility] Comment on above: Order Comment: Speci men Type: BLOOD SPECIMENOrdering Facility: [facility] Address: [address] [place] [address] Performed By: #### 2 777-1, 25735-9, 98546-1 ####[facility] FRANCISCOQUINCYNCCAMERON [id number] [place] [address] [place] CO2 [Moles/Vol] 26 mmol/L Normal 22-30 [facility] Comment on above: Order Comment: Speci men Type: BLOOD SPECIMENOrdering Facility: [facility] Address: [address] [place] [address] Performed By: #### 2 777-1, 76896-1, 68581-2 ####[facility]PITALNCLIA [id number] [place] [address] [place] Creatinine [Mass/Vol] 0.83 mg/dL Normal 0.58-0.96 [facility] Comment on above: Order Comment: Speci men Type: BLOOD SPECIMENOrdering Facility: [facility] Address: [address] [place] [address] Performed By: #### 2 777-1, 33754-8, 88298-3 ####[facility] [id number] [address] [place] Creatinine and Glomerular filtration rate.predicted panel (S/P/Bld) 90 mL/min/1.73m??? Normal >=60 [facility] Comment on above: Order Comment: Speci men Type: BLOOD SPECIMENOrdering Facility: [facility] Address: [address] [place] [address] Result Comment: Wilma mated Glomerular Filtration Rate [...] actual GFR. Performed By: #### 2 777-1, 17449-4, 96076-1 ####[facility] CHARLOTTETOWNCLIA [id number] [place] [address] [place] Glucose [Mass/Vol] 207 mg/dL High 74-99 [facility] Comment on above: Order Comment: Speci men Type: BLOOD SPECIMENOrdering Facility: [facility] Address: [address] [place] [address] Result Comment: The [place] Diabetes Association (ADA) provides guidance for cutoff [...] Standards of Medical Care in Diabetes 2016, [place] Diabetes Association. Diabetes Care. 2016.39(Suppl 1). Performed By: #### 2 777-1, 83608-3, 82823-2 ####[facility]ITALWNCLIA [id number] [place] [address] [place] Potassium [Moles/Vol] 4.4 mmol/L Normal 3.7-5.1 [facility] Comment on above: Order Comment: Speci men Type: BLOOD SPECIMENOrdering Facility: [facility] Address: [address] [place] [address] Performed By: #### 2 777-1, 83969-6, 69126-4 ####[facility]PITALNCLIA [id number] [place] [address] [place] Protein [Mass/Vol] 7.9 g/dL Normal 6.3-8.0 [facility] Comment on above: Order Comment: Speci men Type: BLOOD SPECIMENOrdering Facility: [facility] Address: [address] [place], [place] [address] Performed By: #### 2 777-1, 11283-4, 14955-0 ####[facility]OSPITALWNCLIA [id number] [place] [address] [place] Sodium [Moles/Vol] 136 mmol/L Normal 136-144 [facility] Comment on above: Order Comment: Speci men Type: BLOOD SPECIMENOrdering Facility: [facility] Address: [address] [place] [address] Performed By: #### 2 777-1, 91149-5, 26913-9 ####[facility] [id number] [place] [address] [place] Urea nitrogen [Mass/Vol] 15 mg/dL Normal 7-21 [facility] Comment on above: Order Comment: Speci men Type: BLOOD SPECIMENOrdering Facility: [facility] Address: [address] [place], [place] [address] Performed By: #### 2 777-1, 05888-2, 52039-6 ####[facility] [id number] [place] [address] [place] Lipid 1996 panelon 5 Cholesterol [Mass/Vol] 144 mg/dL Normal <200 [facility] Comment on above: Order Comment: Speci men Type: BLOOD SPECIMENOrdering Facility: [facility] Address: [address] [place] [address] Result Comment: <200 mg/dL, Desirable 200-239 mg/dL, Borderline high >239 mg/dL, High Performed By: #### 2 4331-1 ####[facility] LABCLIA [id number] [address] [address] [place] AMERICASHOREPOINT HEALTH PORT CHARLOTTETOWNCLIA [id number] [place] [address] [place] Cholesterol in HDL [Mass/Vol] 60 mg/dL Normal >39 [facility] Comment on above: Order Comment: Mikki frazier Type: BLOOD SPECIMENOrdering Facility: [facility] Address: [address] [place] [address] Result Comment: 40-5 9 mg/dL, Acceptable >59 mg/dL, High: Negative risk factor for coronary heart disease <40 mg/dL, Low: Positive risk factor for coronary heart disease Performed By: #### 2 4331-1 ####[facility] LABCLIA [id number] [id number] [place] [address] [place] Cholesterol in LDL [Mass/Vol] 70 mg/dL Normal <100 [facility] Comment on above: Order Comment: Sebasbrittaney frazier Type: BLOOD SPECIMENOrdering Facility: [facility] Address: [address] [place] [address] Result Comment: <100 mg/dL, Optimal 100-129 mg/dL, Near optimal/above optimal 130-159 mg/dL, Borderline high 160-189 mg/dL, High >189 mg/dL, Very high Secondary prevention optimal LDL Cholesterol levels are recommended to be <70 mg/dL LDL cholesterol is calculated using the Padgett-NIH equation. Performed By: #### 2 4331-1 ####[facility] LABCLIA [id number] [address] [id number] [place] [address] [place] Cholesterol in LDL/Cholesterol in HDL [Mass ratio] 1.17 {ratio} Normal <2.54 [facility] Comment on above: Order Comment: Mikki frazier Type: BLOOD SPECIMENOrdering Facility: [facility] Address: [address] [place] [address] Result Comment: Refstacie levice: 1. National Cholesterol Education Program ATP III Guideline At-A-Glance Quick Desk Reference: National Heart, Lung, and Blood [place]. National Institutes of Health. 2001: NIH Publication No. 01-3305. 2. An International Atherosclerosis Society position paper: global recommendations for the management of dyslipidemia: executive summary, Atherosclerosis. 2014: 232(2):410-413. Performed By: #### 2 4331-1 ####[facility] LABCLIA [id number] [address] [id number] [place] [address] [place] Cholesterol in VLDL [Mass/Vol] 10 mg/dL Normal <30 [facility] Comment on above: Order Comment: Speci men Type: BLOOD SPECIMENOrdering Facility: [facility] Address: [address] [place] [address] Performed By: #### 2 4331-1 ####[facility] LABCLIA [id number] [address] [id number] [place] [address] [place] Cholesterol non HDL [Mass/Vol] 84 mg/dL Normal <130 [facility] Comment on above: Order Comment: Sebasi men Type: BLOOD SPECIMENOrdering Facility: [facility] Address: [address] [place] [address] Result Comment: <130 mg/dL, Optimal 130-159 mg/dL, Near optimal/above optimal 160-189 mg/dL, Borderline high 190-219 mg/dL, High >219 mg/dL, Very high Secondary prevention optimal non HDL Cholesterol levels are recommended to be <100 mg/dL Performed By: #### 2 4331-1 ####[facility] LABCLIA [id number] [address] [id number] [place] [address] [place] Cholesterol.total/Cynthia sterol in HDL [Mass ratio] 2.40 {ratio} Normal <5.10 [facility] Comment on above: Order Comment: Speci men Type: BLOOD SPECIMENOrdering Facility: [facility] Address: [address] [place] [address] Performed By: #### 2 4331-1 ####[facility] LABCLIA [id number] [address] [address] [facility] [id number] [place] [address] [place] FASTING TIME 9 hrs Normal [facility] Comment on above: Order Comment: Speci men Type: BLOOD SPECIMENOrdering Facility: [facility] Address: [address] [place] [address] Performed By: #### 2 4331-1 ####[facility] LABCLIA [id number] [place] [id number] [facility] [id number] [place] [address] [place] Triglyceride [Mass/Vol] 70 mg/dL Normal <150 [facility] Comment on above: Order Comment: Speci men Type: BLOOD SPECIMENOrdering Facility: [facility] Address: [address] [place] [address] Result Comment: <150 mg/dL, Normal 150-199 mg/dL, Borderline high 200-499 mg/dL, High >499 mg/dL, Very high Performed By: #### 2 4331-1 ####[facility] LABCLIA [id number] [place] [id number] [facility] [id number] [place] [address] [place] Magnesium SerPl-mCncon 03-22 Magnesium [Mass/Vol] 1.9 mg/dL Normal 1.7-2.3 [facility] Comment on above: Order Comment: Speci men Type: BLOOD SPECIMENOrdering Facility: [facility] Address: [address] [place] [address] [place] [address] Performed By: #### 2 777-1, 36854-2, 65849-0 ####[facility] SANJUANA HOPSONWNCLIA [id number] [place] [address] [place] Phosphate SerPl-mCncon 03-22 Phosphate [Mass/Vol] 3.3 mg/dL Normal 2.7-4.8 [facility] Comment on above: Order Comment: Speci men Type: BLOOD SPECIMENOrdering Facility: [facility] Address: [address] [place] [address] Performed By: #### 2 777-1, 23197-8, 93921-7 ####[facility] SANJUANA HOPSONWNCLIA [id number] [address] [place] CNOVon 01-09-2025 CNOV Office Visit (PODIWS ) PATT CRANE ([id number]) 1980 F Date Time Provider Department 01/09/25 [...] 01/12/2024 9.4 08/20/2023 10.7 PCP: Garry Rodriguez APRN.CHURCH OFFICIAL PAST MEDICAL HISTORY Diagnosis Date cardiomyopathy, 09/05/2012 [...] digits Neur (more content not included)... Normal [facility] .Auto Diffon 12-13-2024 Basophil, Absolute 0.0 10 3/mcL Normal 0.0-0.2 [facility] Comment on above: Performed By: #### A DIFF, CBC, HCGQ, ANEU #### [place] [address] [place], [place] [address] Basophils/100 WBC (Bld) 0.7 % Normal 0.0-2.5 A [facility] Comment on above: Performed By: #### A DIFF, CBC, HCGQ, ANEU #### [place] [address] [place], [place] [address] Eosinophil, Absolute 0.2 10 3/mcL Normal 0.0-0.7 [facility] Comment on above: Performed By: #### A DIFF, CBC, HCGQ, ANEU #### [address] [address] Eosinophils/100 WBC (Bld) 3.2 % Normal 0.0-7.0 [facility] Comment on above: Performed By: #### A DIFF, CBC, HCGQ, ANEU #### [address] [address] Lymphocyte, Absolute 1.6 10 3/mcL Normal 0.9-4.3 [facility] Comment on above: Performed By: #### A DIFF, CBC, HCGQ, ANEU #### [address] [address] Lymphocytes/100 WBC (Bld) 32.0 % Normal 20.0-40.0 [facility] Comment on above: Performed By: #### A DIFF, CBC, HCGQ, ANEU #### [address] [address] Monocyte, Absolute 0.5 10 3/mcL Normal 0.1-1.4 [facility] Comment on above: Performed By: #### A DIFF, CBC, HCGQ, ANEU #### [address] [address] Monocytes/100 WBC (Bld) 10.3 % Normal 2.0-13.0 [facility] Comment on above: Performed By: #### A DIFF, CBC, HCGQ, ANEU #### [address] [address] Neutrophils/100 WBC (Bld) 53.8 % Normal 50.0-75.0 [facility] Comment on above: Performed By: #### A DIFF, CBC, HCGQ, ANEU #### [address] [address] .NEUABSon 12-13-2024 Neutrophil, Absolute 2.7 10 3/mcL Normal 2.3-8.1 [facility] Comment on above: Performed By: #### A DIFF, CBC, HCGQ, ANEU #### [place] [id number] CBCon 12-13-2024 Erythrocyte distribution width (RBC) [Ratio] 15.2 % Normal 11.5-15.5 [facility] Comment on above: Performed By: #### A DIFF, CBC, HCGQ, ANEU #### [place] [address] Hematocrit (Bld) [Volume fraction] 41.1 % Normal 34.0-46.0 [facility] Comment on above: Performed By: #### A DIFF, CBC, HCGQ, ANEU #### [place] [address] Hgb 13.4 G/dL Normal 12.0-16.0 [facility] Comment on above: Performed By: #### A DIFF, CBC, HCGQ, ANEU #### [place] [address] MCH (RBC) [Entitic mass] 26.9 pg Low 27.0-33.0 [facility] Comment on above: Performed By: #### A DIFF, CBC, HCGQ, ANEU #### [place] [address] MCHC 32.6 G/dL Normal 32.0-36.0 [facility] Comment on above: Performed By: #### A DIFF, CBC, HCGQ, ANEU #### [place] [address] MCV (RBC) [Entitic vol] 82.7 fL Normal 80.0-99.0 [facility] Comment on above: Performed By: #### A DIFF, CBC, HCGQ, ANEU #### [place] [address] Platelet 355 10 3/mcL Normal 150-450 [facility] Comment on above: Performed By: #### A DIFF, CBC, HCGQ, ANEU #### [place] [address] Platelet mean volume (Bld) [Entitic vol] 7.7 fL Normal 6.6-10.5 [facility] Comment on above: Performed By: #### A DIFF, CBC, HCGQ, ANEU #### [facility] [address] [place], [place] [address] RBC 4.97 10 6/mcL Normal 4.10-5.30 [facility] Comment on above: Performed By: #### A DIFF, CBC, HCGQ, ANEU #### [facility] [address] [place], [place] [address] WBC 5.0 10 3/mcL Normal 4.5-10.8 [facility] Comment on above: Performed By: #### A DIFF, CBC, HCGQ, ANEU #### [facility] [address] [place], [place] [address] Cardiology Visit Reporton Cardiology Visit Report [facility] [place] [address] OFFICE VISIT Date of Service: 12/13/24 MR#: [id number] Acct: [id number] Name: PATT CRANE Rep #: [id number] : 1980 Provider: ODALYS venegas Age/Sex: 44/F [place] [facility] [place] Status: Signed HPI HPI History [...] BP Intake Visit Reasons: 7 M FU Publications Distribution Clerk Required: No Is patient in pain?: No [...] hearing nona (more content not included)... Normal [facility] HCGQon 12-13-2024 hCG, quantitative 8.4 mIU/mL Normal [facility] Comment on above: Result Comment: HCG [...] A DIFF, CBC, HCGQ, ANEU #### [place] [address] LABORATORYOrdered By: SYSTEM SYSTEM on 12-13-2024 Basophils [...] Micheline 12-12-2024 WILL Telephone (AGFAMPLE) PATT CRANE ([id number]) 1980 F Date Time Provider Department 12/12/24 [...] Encounter Status:Closed by AKSHAT QUESADA on 12/12/24 [facility] Micheline 12-11-2024 WILL Telephone (The Daily MuseCELIAITZEL) PATT CRANE ([id number]) 1980 F Date Time Provider Department 12/11/24 GARRY RODRIGUEZ During your visit today, we recorded the following information about you: Akshat Quesada MA 12/11/2024 7:24 AM Signed ----- Message from Garry Rodriguez APRN.CHURCH OFFICIAL sent at 12/10/2024 9:25 AM EST ----- [...] Status:Closed by CARMEL DENNISON on 12/11/24 Normal [facility] XR Foot - left AP and Latera l and obliqueon 12-08-2024 IMPRESSION: No acute radiographic abnormality. Club Room Attendant: HODA Transcribe Date/Time: Dec 08 2024 11:36A Dictated by : YUAN ROBLES MD This examination was interpreted and the report reviewed and electronically signed by: YAUN ROBLES MD on Dec 08 2024 11:37AM [facility] * * *Final Report* * [...] significant. IMPRESSION IMPRESSION: No acute radiographic abnormality. Club Room Attendant: HODA Transcribe Date/Time: Dec 08 2024 11:36A Dictated by : YUAN ROBLES MD This examination was interpreted and the report reviewed and electronically signed by: YUAN ROBLES MD on Dec 08 2024 11:37AM EST [facility] XR Foot - left AP and Latera l and obliqueOrdered By: Ccf Provider on 12-08-2024 [facility]line [facility]20[facility] CR[facility] ([id number]) 1980 F Date Time Provider Department 12/07/24 GARRY RODRIGUEZ During your visit today, we recorded the following information about you: Akshat Quesada MA 12/07/2024 7:20 AM Signed Received fax from [employer] stating [employer] denied ozempic. Please advise. JOHN [...] Status:Closed by AKSHAT QUESADA on 12/07/24 Normal [facility] ALBUMIN/CREATININE RATIO, UR INEon 12-06-2024 Albumin Unsp time DL <= 20 mg/L (U) [Mass/Time] mg/L mg/L [facility] Albumin/Creatinine (U) [Mass ratio] mg/g NINF - 30 mg/g [facility] Comment on above: Adult Male and [...] [Mass/Vol] 64.8 mg/dL 42.2 - 237.9 mg/dL [facility] Albumin Unsp time DL <= 20 mg/L (U) [Mass/Time] <12.0 Normal [facility] Comment on above: Order Comment: Speci men Type: URINE SPECIMEN [facility]ing Facility: [facility] Address: [address] [place] [address] Performed By: #### U ACR #### [facility] CLIA [id number] [address] [place] [address] [place] Albumin/Creatinine (U) [Mass ratio] <19 Normal <30 [facility] Comment on above: Order Comment: Speci men Type: URINE SPECIMEN Ordering Facility: [facility] Address: [address] [place], [place] [address] [address] Result Comment: Adul t Male and Female Nephrotic Criteria: <30 mg/g is considered normal to mildly increased 30-300 mg/g is considered moderately increased >300 mg/g is considered severely increased KDIGO. (2013). KDIGO 2012 Clinical Practice Guideline for the Evaluation and Management of Chronic Kidney Disease. Official Journal of the International Society of Nephrology, 3(1), 1-150. Performed By: #### U ACR #### [facility] CLIA [id number] [address] [place] [facility] Creatinine (U) [Mass/Vol] 64.8 mg/dL Normal 42.2-237.9 [facility] Comment on above: Order Comment: Speci men Type: URINE SPECIMEN Ordering Facility: [facility] Address: [address] [place] [address] Performed By: #### U ACR #### [facility] CLIA [id number] [address] [place] CNOVon 12-06-2024 CNOV Office Visit ([place]) PATT CRANE ([id number]) 1980 F Date Time Provider Department 12/06/24 1:20 PM GARRY RODRIGUEZ During your visit today, we recorded the following information about you: Temperature Pulse Respiration Blood pressure 98 degrees 56/minute 16/minute 122/62 Weight Height 91.2 kg 1.6 m Garry Rodriguez APRN.CHURCH OFFICIAL 12/11/2024 10:35 AM Signed Subjective Patt Crane [...] screening - Dr Briones is her OBGYN [facility] Colorectal cancer screening - na Osteoporosis screening [...] Jardiance for cardiomyopathy, she continues care with [facility] cardiology - Dr Blanco Has history of [...] or abdominal (more content not included)... Normal [facility] HEMOGLOBIN A1C (POC)on 12-06 HbA1c (Bld) [Mass fraction] 8.9 % Abnormal 4.3 - 5.6 % [facility] Comment on above: Location:[facility], [address] [place] [address], [address] Point of care (POC) Hemoglobin A1c (HGBA1C) [...] specific diabetes management situations: The POC device surgical instrument maker provides a normal range of 4.2% to 6.5% for the HGBA1C POC test. However, the [place] Diabetes Association guidelines indicate that patients with [...] Interpretation and review of laboratory results Abnormal [facility] XR FOOT 3V AP/LAT/OBL LTon 0 [...] clinically significant. IMPRESSION: No acute radiographic abnormality. Club Room Attendant: PSCB Transcribe Date/Time: Dec 08 2024 11:36A Dictated by : YUAN ROBLES MD This examination was interpreted and the report reviewed and electronically signed by: YUAN ROBLES MD on Dec 08 2024 11:37AM EST [id number] Normal [facility] XR Foot - left AP and Latera l and obliqueon 12-06-2024 Radiology Study observation (narrative) Sari robledo [facility] CNCOon 11-27-2024 CNCO Letter Text Normal [facility] HCGQon 11-24-2024 hCG, quantitative 4613.6 mIU/mL Normal [facility] Comment on above: Result Comment: HCG [...] Performed By: #### H CGQ, PREGS #### [place] [address] LABORATORYOrdered By: Judith Dickson on 11-24-2024 HCG [...] mIU/mL PREGSon 11-24-2024 test (s) Positive Normal [facility] Comment on above: Order Comment: +VE U PT at home. Performed By: #### H CGQ, PREGS #### [address] [address] test (s) int Detected Invalid Interpretation Code [facility] Comment on above: Order Comment: +VE U PT at home. Performed By: #### H CGQ, PREGS #### [place] [address] [place], [place] [address] CT CHEST WO IVCONon 11-16-20 CT CHEST WO IVCON * * *Final Report* * * DATE OF EXAM: Nov 16 2024 3:49PM [facility] 0541 - CT CHEST WO IVCON [...] the chest. Sequela of remote granulomatous disease. Club Room Attendant: HODA Transcribe Date/Time: Nov 20 2024 3:56P Dictated by : CAROL CALLAWAY MD This examination was interpreted and the report reviewed and electronically signed by: CAROL CALLAWAY MD on Nov 20 2024 4:01PM EST [id number] Normal [facility] 10-09-2024 WILL Telephone ([place]) PATT CRANE ([id number]) 1980 F Date Time Provider Department 10/09/24 [...] Diagnosis:Lung nodule [R91.1] Order(s):CT CHEST WO IMMANUELON [4291125] Order #: [id number] FUTURE Prescriptions as of 10/09/2024 - dulaglutide [...] Status:Closed by AKSHAT QUESADA on 10/09/24 Normal [facility] 05-10-2024 Hematocrit (Bld) [Volume fraction] 41.4 % Normal 37.0-47.0 [facility] ([place]) Comment on above: Performed By: #### H H #### [address] [place], [place] [address] Hgb 13.5 G/dL Normal 12.0-16.0 [facility] ([place]) Comment on above: Performed By: #### H H #### [address] [place], [place] [address] LABORATORYOrdered By: SYSTEM SYSTEM on 05-10-2024 Hematocrit [...] Ordering Provider: KRISTYN Dexter [facility] ([place]) HEMOGLOBIN A1C (POC)on 01-12 HbA1c (Bld) [Mass fraction] 9.4 % Abnormal 4.3 - 5.6 % [facility] Double End [employer]oner Operator Cytology Reporton 2022 Double End [employer]oner Operator Cytology Report . Pathology Reports Accession: Collected Date/Time: Received Date/Time: Pathologist: [id number] 10/27/2023 10:33 EST 10/27/2023 18:00 EST Double End [employer]oner Operator Cytology Report SPECIMEN: Specimen Description: Liquid Prep [...] and evaluated with the assistance of the eEyePrep Test Imaging System. Pathology Reports Accession: Collected Date/Time: Received Date/Time: Pathologist: [id number] 10/27/2023 10:33 EST 10/27/2023 18:00 EST Electronically Signed by Pathology report verified by [facility] Screened by: [place] Electronically signed by Julisa CARDONA (ASCP) Sign-Out Date: 11/01/2023 15:52 Performing Lab: [facility], [address] [place] [address] Pathology Dept Disclaimer The Pap test is a screening test for cervical cancer. As evidenced by published data, it is subject to both inherent false negative and false positive results. Your patient's results should be interpreted in context with pertinent clinical history including gynecological examination. Normal [facility] ([place]) HPVon 11-01-2023 HPV Interp Normal See Interp HPVN [facility] ([place]) Comment on above: Order Comment: Order placed by AP_HPV_ORDER rule from [id number] Result Comment: High Risk HPV Typing: NEGATIVE [...] HPVN Performed By: #### H PV #### [address] [address] HPV Source Cervix Normal [facility] ([place]) Comment on above: Order Comment: Order placed by AP_HPV_ORDER rule from [id number] Performed By: #### H PV #### [address] [address] Basophil percentageOrdered B y: Alexia Stacy on 10-12-2023 Chloride [Moles/Vol] 106 mmol/L 98-107 [facility] Glucose [Mass/Vol] 262 mg/dL 74-106 [facility] Comment on above: Glucose result great er than or equal to 200 mg/dLsuggests DIABETES MELLITUS per A.D.A. criteria. Potassium [Moles/Vol] 3.9 mmol/L 3.5-5.1 [facility] Sodium [Moles/Vol] 138 mmol/L 136-145 [facility] Laboratory - Chemistry and C hemistry - challengeOrdered By: Alexia Stacy on 10-12-2023 CO2 [Moles/Vol] 27.0 mmol/L 21.0-32.0 [facility] Urea nitrogen/Creatinine [Mass ratio] 12.6 mg/mg 10-20 [facility] No Panel InformationOrdered By: Alexia Stacy on 10-12-2023 Estimated GFR (MDRD) Amer 64 mL/min >60 [facility] Comment on above: GFR Calc Estimated GFR (MDRD) Non-Af Amer 53 mL/min >60 [facility] Comment on above: Non- GFR Calc Serum or plasma calcium lamar urement (mass/volume)Ordered By: Alexia Stacy on 10-12-2023 Calcium [Mass/Vol] 8.8 mg/dL 8.5-10.1 [facility] Serum or plasma creatinine m easurement (mass/volume)Ordered By: Alexia Stacy on 10-12-2023 Creatinine [Mass/Vol] 1.19 mg/dL 0.55-1.02 [facility] Comment on above: The validity of the calculated GFR & GFRAA in patients over 70 years has not been determined. Clinical correlation is essential. Serum or plasma urea nitroge n measurement (mass/volume)Ordered By: Alexia Stacy on 10-12-2023 Urea nitrogen [Mass/Vol] 15 mg/dL 7-18 [facility] Thin prep Papanicolaou smear with manual screeningOrdered By: Alexia Stacy on 10-12-2023 Thin prep Papanicolaou smear with manual screening 5 5-[address] [facility] [address] ABD/PEL W IVCONon 023 Radiology Result ACTIONABLE Abnormal [facility] Absolute lymphocyte countOrd ered By: Alexia Stacy on 09-21-2023 Lymphocytes Auto (Unsp spec) [#/Vol] 1.27 10*3/uL 0.83-4.51 [facility] Basophil percentageOrdered B y: Alexia Stacy on 09-21-2023 Basophils/100 WBC (Bld) 0.5 % 0-1 [facility] Chloride [Moles/Vol] 108 mmol/L 98-107 [facility] Eosinophils/100 WBC (Bld) 2.7 % 0-5 [facility] Glucose [Mass/Vol] 217 mg/dL 74-106 [facility] Comment on above: Glucose result great er than or equal to 200 mg/dLsuggests DIABETES MELLITUS per A.D.A. criteria. Neutrophils (Bld) [#/Vol] 3.2 10*3/uL 2.0-7.7 [facility] Neutrophils/100 WBC (Bld) 58.1 % 47-70 [facility] Potassium [Moles/Vol] 3.8 mmol/L 3.5-5.1 [facility] Sodium [Moles/Vol] 139 mmol/L 136-145 [facility] WBC (Bld) [#/Vol] 5.5 10*3/uL 4.4-11.0 [facility] Blood erythrocytes count (nu mber/volume)Ordered By: Alexia Stacy on 09-21-2023 RBC (Bld) [#/Vol] 4.80 10*6/uL 4.2-5.4 [facility] Blood hemoglobin measurement (mass/volume)Ordered By: Alexia Stacy on 09-21-2023 Hemoglobin (Bld) [Mass/Vol] 12.0 g/dL 12.0-15.0 [facility] Blood lymphocytes/100 leukoc ytesOrdered By: Alexia Stacy on 09-21-2023 Lymphocytes/100 WBC (Bld) 23.3 % 19-41 [facility] Blood monocytes/100 leukocyt esOrdered By: Alexia Stacy on 09-21-2023 Monocytes/100 WBC (Bld) 13.9 % 0-10 [facility] Blood platelet mean volumeOr dered By: Alexia Stacy on 09-21-2023 Platelet mean volume (Bld) [Entitic vol] 10.3 fL 6.2-12.0 [facility] Determination of erythrocyte mean corpuscular volume (MCV)Ordered By: Alexia Stacy on 09-21-2023 MCV (RBC) [Entitic vol] 82.9 fL 81-99 [facility] Hematocrit Auto (Bld) [Volum e fraction]Ordered By: Alexia Stacy on 09-21-2023 Hematocrit (Bld) [Volume fraction] 39.8 % 37-47 [facility] Laboratory - Chemistry and C hemistry - challengeOrdered By: Alexia Stacy on 09-21-2023 CO2 [Moles/Vol] 24.0 mmol/L 21.0-32.0 [facility] Natriuretic peptide B (Bld) [Mass/Vol] 463.1 pg/mL 0-100 [facility] Urea nitrogen/Creatinine [Mass ratio] 11.0 mg/mg 10-20 [facility] Laboratory - Hematology and Cell countsOrdered By: Alexia Stacy on 09-21-2023 Erythrocyte distribution width (RBC) [Entitic vol] 44.7 fL 35.1-43.9 [facility] Erythrocyte distribution width (RBC) [Ratio] 14.8 % 11.6-14.6 [facility] Immature granulocytes/100 WBC (Bld) 1.500 % 0.0-0.9 [facility] Comment on above: IG% - Immature Granu locytes (promyelocytes, myelocytes and metamyelocytes) > 1% indicates that a LEFT SHIFT is Present. MCH (RBC) [Entitic mass] 25.0 pg 27.0-32.0 [facility] Nucleated RBC/100 WBC (Bld) [Ratio] 0 % 0-5 [facility] MCHC Auto (RBC) [Mass/Vol]Or dered By: Alexia Stacy on 09-21-2023 MCHC (RBC) [Mass/Vol] 30.2 g/dL 32-36 [facility] No Panel InformationOrdered By: Alexia Stacy on 09-21-2023 Estimated GFR (MDRD) Amer 78 mL/min >60 [facility] Comment on above: GFR Calc Estimated GFR (MDRD) Non-Af Amer 65 mL/min >60 [facility] Comment on above: Non- GFR Calc Platelets bldOrdered By: Raphael Stacy on 09-21-2023 Platelets (Bld) [#/Vol] 362 10*3/uL 150-450 [facility] Serum or plasma calcium lamar urement (mass/volume)Ordered By: Alexia Stacy on 09-21-2023 Calcium [Mass/Vol] 8.7 mg/dL 8.5-10.1 [facility] Serum or plasma creatinine m easurement (mass/volume)Ordered By: Alexia Stacy on 09-21-2023 Creatinine [Mass/Vol] 1.00 mg/dL 0.55-1.02 [facility] Comment on above: The validity of the calculated GFR & GFRAA in patients over 70 years has not been determined. Clinical correlation is essential. Serum or plasma urea nitroge n measurement (mass/volume)Ordered By: Alexia Stacy on 09-21-2023 Urea nitrogen [Mass/Vol] 11 mg/dL 06-15 [facility] Thin prep Papanicolaou smear with manual screeningOrdered By: Alexia Stacy on 09-21-2023 Thin prep Papanicolaou smear with manual screening 7 - [facility] No Panel Informationon 09-15 Radiology Result ACTIONABLE Abnormal [facility] Basophil percentageOrdered B y: Ha Echevarria on 08-12-2023 Chloride [Moles/Vol] 108 mmol/L 98-107 [facility] Cholesterol [Mass/Vol] 115 mg/dL <200 [facility] Comment on above: <200 mg/dL Desirable 200-240 mg/dL Borderline >240 mg/dL High Risk Glucose [Mass/Vol] 272 mg/dL 74-106 [facility] Comment on above: Glucose result great er than or equal to 200 mg/dLsuggests DIABETES MELLITUS per A.D.A. criteria. Potassium [Moles/Vol] 3.9 mmol/L 3.5-5.1 [facility] Sodium [Moles/Vol] 137 mmol/L 136-145 [facility] Triglyceride [Mass/Vol] 99 mg/dL <199 [facility] Comment on above: The drugs N-Acetylcy steine and Metamizole may falsely depress this assay.Serum Triglycerides Reference Interval Normal <150 mg/dL Borderline high 150 - 199 mg/dL High 200 - 499 mg/dL Very High > or = 500 mg/dL WBC (Bld) [#/Vol] 6.7 10*3/uL 4.4-11.0 [facility] Blood erythrocytes count (nu mber/volume)Ordered By: Ha Echevarria on 08-12-2023 RBC (Bld) [#/Vol] 4.30 10*6/uL 4.2-5.4 [facility] Blood hemoglobin measurement (mass/volume)Ordered By: Ha Echevarria on 08-12-2023 Hemoglobin (Bld) [Mass/Vol] 11.4 g/dL 12.0-15.0 [facility] Blood platelet mean volumeOr dered By: Ha Echevarria on 08-12-2023 Platelet mean volume (Bld) [Entitic vol] 9.9 fL 6.2-12.0 [facility] Determination of erythrocyte mean corpuscular volume (MCV)Ordered By: Ha Echevarria on 08-12-2023 MCV (RBC) [Entitic vol] 84.7 fL 81-99 [facility] Glucose Glucometer (BldC) [M ass/Vol]Ordered By: Aj Colon on 08-12-2023 Glucose [Mass/Vol] 216 mg/dL 74-106 [facility] Comment on above: MANAGEMENT OF PATIEN T CARE PER NURSING PROTOCOL Hematocrit Auto (Bld) [Volum e fraction]Ordered By: Ha Echevarria on 08-12-2023 Hematocrit (Bld) [Volume fraction] 36.4 % 37-47 [facility] Laboratory - Chemistry and C hemistry - challengeOrdered By: Ha Echevarria on 08-12-2023 CO2 [Moles/Vol] 24.0 mmol/L 21.0-32.0 [facility] Urea nitrogen/Creatinine [Mass ratio] 7.7 mg/mg 10-20 [facility] Laboratory - CoagulationOrde red By: Ha Echevarria on 08-12-2023 aPTT Coag (Bld) [Time] 46.2 s 24.1-36.2 [facility] Laboratory - Hematology and Cell countsOrdered By: Ha Echevarria on 08-12-2023 Erythrocyte distribution width (RBC) [Entitic vol] 44.0 fL 35.1-43.9 [facility] Erythrocyte distribution width (RBC) [Ratio] 14.5 % 11.6-14.6 [facility] MCH (RBC) [Entitic mass] 26.5 pg 27.0-32.0 [facility] MCHC Auto (RBC) [Mass/Vol]Or dered By: Ha Echevarria on 08-12-2023 MCHC (RBC) [Mass/Vol] 31.3 g/dL 32-36 [facility] No Panel InformationOrdered By: Ha Echevarria on 08-12-2023 Estimated Creatinine Clearance Calc 66.62 ml/min [facility] Estimated GFR (MDRD) Amer 87 mL/min >60 [facility] Comment on above: GFR Calc Estimated GFR (MDRD) Non-Af Amer 72 mL/min >60 [facility] Comment on above: Non- GFR Calc Troponin I High Sensitivity 2114 pg/mL 3.0-54.0 [facility] Comment on above: Critical Result(s) C alled at: 00:43:05 08/12/2023 by: DANA SANEZ TO PIPER ANDERSON RN (U) Results read back by same. Please Note: New Test Units and Gender Specific Reference Ranges. For more information see Policy Stat Procedure Force High Sensitivity Troponin (TNIH) and attachments. Platelets bldOrdered By: Olman Echevarria on 08-12-2023 Platelets (Bld) [#/Vol] 278 10*3/uL 150-450 [facility] Serum or plasma calcium lamar urement (mass/volume)Ordered By: Ha Echevarria on 08-12-2023 Calcium [Mass/Vol] 8.3 mg/dL 8.5-10.1 [facility] Serum or plasma cholesterol in HDL measurement (mass/volume)Ordered By: Ha Echevarria on 08-12-2023 Cholesterol in HDL [Mass/Vol] 48 mg/dL >40 [facility] Comment on above: The drugs N-Acetylcy steine and Metamizole may falsely depress this assay. Reference Range HDL <40 mg/dL Low HDL Cholesterol HDL >or= 60 mg/dL High HDL Cholesterol Serum or plasma cholesterol in VLDL measurement (mass/volume)Ordered By: Ha Echevarria on 08-12-2023 Cholesterol in VLDL [Mass/Vol] 20 mg/dL 5-40 [facility] Serum or plasma creatinine m easurement (mass/volume)Ordered By: Ha Echevarria on 08-12-2023 Creatinine [Mass/Vol] 0.91 mg/dL 0.55-1.02 [facility] Comment on above: The validity of the calculated GFR & GFRAA in patients over 70 years has not been determined. Clinical correlation is essential. Serum or plasma low density lipoprotein (LDL) cholesterol measurement (mass/volume)Ordered By: Ha Echevarria on 08-12-2023 Cholesterol in LDL [Mass/Vol] 47 mg/dL 0-130 [facility] Serum or plasma urea nitroge n measurement (mass/volume)Ordered By: Ha Echevarria on 08-12-2023 Urea nitrogen [Mass/Vol] 7 mg/dL 7-18 [facility] Thin prep Papanicolaou smear with manual screeningOrdered By: Ha Echevarria on 08-12-2023 Thin prep Papanicolaou smear with manual screening 5 5-15 [facility] Absolute lymphocyte countOrd ered By: Placido Pena on 08-11-2023 Lymphocytes Auto (Unsp spec) [#/Vol] 1.43 10*3/uL 0.83-4.51 [facility] Basophil percentageOrdered B y: Placido Pena on 08-11-2023 Basophil percentage 0 SEEN /hpf 0-5 [facility] Basophils/100 WBC (Bld) 0.6 % 0-1 [facility] Bilirubin [Mass/Vol] 0.60 mg/dL 0.20-1.00 [facility] Comment on above: For patients on eltr ombopag therapy, use of Dimension Force TBIL is not recommended. Chloride [Moles/Vol] 106 mmol/L 98-107 [facility] Eosinophils/100 WBC (Bld) 1.3 % 0-5 [facility] Glucose [Mass/Vol] 280 mg/dL 74-106 [facility] Comment on above: Glucose result great er than or equal to 200 mg/dLsuggests DIABETES MELLITUS per A.D.A. criteria. Neutrophils (Bld) [#/Vol] 3.4 10*3/uL 2.0-7.7 [facility] Neutrophils/100 WBC (Bld) 63.5 % 47-70 [facility] Potassium [Moles/Vol] 3.3 mmol/L 3.5-5.1 [facility] Protein [Mass/Vol] 6.8 g/dL 6.4-8.2 [facility] Sodium [Moles/Vol] 135 mmol/L 136-145 [facility] WBC (Bld) [#/Vol] 5.4 10*3/uL 4.4-11.0 [facility] Beta hCG serum qualOrdered B y: Placido Pena on 08-11-2023 Beta HCG ( test) Ql Negative [facility] Bilirubin Test strip Ql (U)O rdered By: Placido Pena on 08-11-2023 Bilirubin Ql (U) Negative Negative [facility] Blood erythrocytes count (nu mber/volume)Ordered By: Placido Pena on 08-11-2023 RBC (Bld) [#/Vol] 4.41 10*6/uL 4.2-5.4 [facility] Blood hemoglobin measurement (mass/volume)Ordered By: Placido Pena on 08-11-2023 Hemoglobin (Bld) [Mass/Vol] 11.8 g/dL 12.0-15.0 [facility] Blood lymphocytes/100 leukoc ytesOrdered By: Placido Pena on 08-11-2023 Lymphocytes/100 WBC (Bld) 26.6 % 19-41 [facility] Blood monocytes/100 leukocyt esOrdered By: Placido Pena on 08-11-2023 Monocytes/100 WBC (Bld) 7.6 % 0-10 [facility] Blood platelet mean volumeOr dered By: Placido Pena on 08-11-2023 Platelet mean volume (Bld) [Entitic vol] 10.1 fL 6.2-12.0 [facility] Determination of erythrocyte mean corpuscular volume (MCV)Ordered By: Placido Pena on 08-11-2023 MCV (RBC) [Entitic vol] 85.7 fL 81-99 [facility] Hematocrit Auto (Bld) [Volum e fraction]Ordered By: Placido Pena on 08-11-2023 Hematocrit (Bld) [Volume fraction] 37.8 % 37-47 [facility] INR in Blood by Coagulation assayOrdered By: Placido Pena on 08-11-2023 INR Coag (Bld) [Relative time] 1.1 {INR} [facility] Ketones Test strip Ql (U)Ord ered By: Placido Pena on 08-11-2023 Ketones Ql (U) 5 mg/dl Negative [facility] Laboratory - Chemistry and C hemistry - challengeOrdered By: Placido Pena on 08-11-2023 ALP [Catalytic activity/Vol] 91 U/L 45-117 [facility] ALT [Catalytic activity/Vol] 105 U/L 13-56 [facility] CO2 [Moles/Vol] 25.0 mmol/L 21.0-32.0 [facility] Globulin (S) [Mass/Vol] 3.6 g/dL 2.2-4.2 [facility] Urea nitrogen/Creatinine [Mass ratio] 8.0 mg/mg 10-20 [facility] Laboratory - CoagulationOrde red By: Placido Pena on 08-11-2023 aPTT Coag (Bld) [Time] 24.6 s 24.1-36.2 [facility] PT Coag (PPP) [Time] 14.1 s 11.7-14.9 [facility] Laboratory - Hematology and Cell countsOrdered By: Placido Pena on 08-11-2023 Erythrocyte distribution width (RBC) [Entitic vol] 45.6 fL 35.1-43.9 [facility] Erythrocyte distribution width (RBC) [Ratio] 14.6 % 11.6-14.6 [facility] Immature granulocytes/100 WBC (Bld) 0.400 % 0.0-0.9 [facility] Comment on above: IG% - Immature Granu locytes (promyelocytes, myelocytes and metamyelocytes) > 1% indicates that a LEFT SHIFT is Present. MCH (RBC) [Entitic mass] 26.8 pg 27.0-32.0 [facility] Nucleated RBC/100 WBC (Bld) [Ratio] 0 % 0-5 [facility] MCHC Auto (RBC) [Mass/Vol]Or dered By: Placido Pena on 08-11-2023 MCHC (RBC) [Mass/Vol] 31.2 g/dL 32-36 [facility] Mucus LM Ql (Urine sed)Order ed By: Placido Pena on 08-11-2023 Mucus Ql (Urine sed) 0 SEEN /hpf [facility] Nitrite Test strip Ql (U)Ord ered By: Placido Pena on 08-11-2023 Nitrite Ql (U) Negative Negative [facility] No Panel InformationOrdered By: Placido Pena on 08-11-2023 D-Dimer Quantitative (PE/DVT) 0.72 FEU/ug/m 0.27-0.49 [facility] Comment on above: D-Dimer ELEVATED (>0 .49): Additional studies and clinicalassessments are indicated to conclude diagnosis of:Deep Vein Thrombosis (DVT) or Pulmonary Embolism (PE)CRITICAL VALUE VERIFIED. CALLED TO [id number]/13/23 Masoud Coombs.RESULTS READ BACK BY SAME . Estimated Creatinine Clearance Calc 53.65 ml/min [facility] Estimated GFR (MDRD) Amer 68 mL/min >60 [facility] Comment on above: GFR Calc Estimated GFR (MDRD) Non-Af Amer 56 mL/min >60 [facility] Comment on above: Non- GFR Calc Troponin I High Sensitivity 1494 pg/mL 3.0-54.0 [facility] Comment on above: TO Critical Result(s ) Called at: 18:38:20 08/11/2023 by: JIL CHRISTIAN TO REINALDO REYES. Results read back by same. Please Note: New Test Units and Gender Specific Reference Ranges. For more information see Policy Stat Procedure Force High Sensitivity Troponin (TNIH) and attachments. Platelets bldOrdered By: Adeline Pena on 08-11-2023 Platelets (Bld) [#/Vol] 311 10*3/uL 150-450 [facility] Protein Test strip Ql (U)Ord ered By: Placido Pena on 08-11-2023 Protein Ql (U) 30 mg/dl Negative [facility] Serum or plasma albumin lamar urement (mass/volume)Ordered By: Placido Pena on 08-11-2023 Albumin [Mass/Vol] 3.2 g/dL 3.2-5.0 [facility] Serum or plasma albumin/glob ulin mass ratioOrdered By: Placido Pena on 08-11-2023 Albumin/Globulin [Mass ratio] 0.9 {ratio} 0.9-2.4 [facility] Serum or plasma calcium lamar urement (mass/volume)Ordered By: Placido Pena on 08-11-2023 Calcium [Mass/Vol] 9.0 mg/dL 8.5-10.1 [facility] Serum or plasma creatinine m easurement (mass/volume)Ordered By: Placido Pena on 08-11-2023 Creatinine [Mass/Vol] 1.13 mg/dL 0.55-1.02 [facility] Comment on above: The validity of the calculated GFR & GFRAA in patients over 70 years has not been determined. Clinical correlation is essential. Serum or plasma urea nitroge n measurement (mass/volume)Ordered By: Placido Pena on 08-11-2023 Urea nitrogen [Mass/Vol] 9 mg/dL 7-18 [facility] Squamous epithelial cells de tection in urine sediment by light microscopyOrdered By: Placido Pena on 08-11-2023 Epithelial cells.squamous LM Ql (Urine sed) 0 SEEN /hpf 5-10 [facility] Thin prep Papanicolaou smear with manual screeningOrdered By: Placido Pena on 08-11-2023 Thin prep Papanicolaou smear with manual screening 60 U/L 15-37 [facility] Thin prep Papanicolaou smear with manual screening 4 5-15 [facility] Urine blood detectionOrdered By: Placido Pena on 08-11-2023 RBC Ql (U) Negative Negative [facility] RBC Ql (U) 0 SEEN /hpf 0-5 [facility] Urine clarityOrdered By: Adeline Pena on 08-11-2023 Clarity (U) Clear Clear [facility] Urine color determinationOrd ered By: Placido Pena on 08-11-2023 Color (U) Yellow Yellow [facility] Urine glucose detectionOrder ed By: Placido Pena on 08-11-2023 Glucose Ql (U) 250 mg/dl Normal [facility] Urine leukocyte esterase det ection by dipstickOrdered By: Placido Pena on 08-11-2023 Leukocyte esterase Test strip Ql (U) Negative Negative [facility] Urine pHOrdered By: Placido aguilar on 08-11-2023 pH (U) 6.0 [pH] 5.0 - 8.0 [facility] Urine sediment bacteria coun t by microscopy (number/high power field)Ordered By: Placido Pena on 08-11-2023 Bacteria LM.HPF (Urine sed) [#/Area] 0 /[HPF] None Seen [facility] Urine specific gravity measu rementOrdered By: Placido Pena on 08-11-2023 Specific gravity (U) [Rel density] 1.015 1.002-1.030 [facility] Urobilinogen Auto test strip Ql (U)Ordered By: Placido Pena on 08-11-2023 Urobilinogen Ql (U) Normal mg/dl Normal [facility] XR Shoulder - right 3 Viewso n 02-24-2023 IMPRESSION: No acute osseous abnormality. Club Room Attendant: PSCB Transcribe Date/Time: Feb 24 2023 12:12P Dictated by : VIOLETTE JOSEPH DO This examination was interpreted and the report reviewed and electronically signed by: VIOLETTE JOSEPH DO on Feb 24 2023 12:14PM [facility] DIVISION OF RADIOLOGY * * *Final Report* [...] No fracture. DIVISION OF RADIOLOGY Provider, [facility] - 02/24/2023 * * *Final Report* [...] fracture. IMPRESSION IMPRESSION: No acute osseous abnormality. Club Room Attendant: PSCB Transcribe Date/Time: Feb 24 2023 12:12P Dictated by : VIOLETTE JOSEPH DO This examination was interpreted and the report reviewed and electronically signed by: VIOLETTE JOSEPH DO on Feb 24 2023 12:14PM EST [facility] XR Shoulder - right 3 ViewsO rdered By: [facility] Provider on 02-24-2023 [facility] SCREENINGon 02-23-2023 [facility] XR Shoulder - right 3 Viewso n 02-19-2023 Radiology Study observation (narrative) [facility] HbA1c (Bld)on 01-27-2023 HbA1c (Bld) [Mass fraction] 10 % Abnormal 4 - 6 % [facility] XR FOOT RIGHT (MIN 3 VIEWS)o [...] Mateus Cartwright MD 07/10/22 Final result Normal [facility] NO ACUTE FRACTURES [facility] XR FOOT RIGHT (MIN 3 VIEWS) CLINICAL HISTORY: pain no history of trauma reported COMPARISON: None FINDINGS: Three views of the right foot are submitted. No acute fractures. No dislocations. No focal bony abnormalities No radiographic foreign body [facility] Mateus Cartwright MD - 07/10/2022 XR FOOT RIGHT (MIN 3 VIEWS) CLINICAL HISTORY: pain no history of trauma reported COMPARISON: None FINDINGS: Three views of the right foot are submitted. No acute fractures. No dislocations. No focal bony abnormalities No radiographic foreign body IMPRESSION: NO ACUTE FRACTURES [employer] Phone: Radiology Study observation (narrative) NIKOLAS SALAS [employer] Phone: XR FOOT RIGHT (MIN 3 VIEWS)O rdered By: Mateus Cartwright on 07-10-2022 [employer] Phone: UR Microalbumin/Creatinine R atio Randomon 08-20-2021 Microalbumin/creatinine Ratio 23.9 mg/G Normal 0.0-30.0 [facility] Comment on above: Performed By: #### U MACR #### [facility] [address] [place] [address] UR Creatinine Random 117.2 mg/dL Normal Not Establ [facility] Comment on above: Performed By: #### U MACR #### [facility] [address] [place] [address] UR Microalbumin Random 2.80 mg/dL Critically high Not Esta bl [facility] Comment on above: Performed By: #### U MACR #### [facility] [address] [place] [address] BASIC METABOLIC PANELon 07-30 Anion gap [Moles/Vol] 12 mmol/L Normal 10 - 20 [facility] Comment on above: Performed By: #### B MP #### [address] [id number] Calcium [Mass/Vol] 9.1 mg/dL Normal 8.6 - 10.3 [facility] Comment on above: Performed By: #### B MP #### [address] [id number] Chloride [Moles/Vol] 103 mmol/L Normal 98 - 107 [facility] Comment on above: Performed By: #### B MP #### [address] [id number] Creatinine [Mass/Vol] 1.01 mg/dL Normal 0.50 - 1.05 [facility] Comment on above: Performed By: #### B MP #### [address] [id number] GFR- AM. >60 Normal >60 [facility] Comment on above: Result Comment: CALC ULATIONS OF ESTIMATED GFR ARE PERFORMED USING THE MDRD STUDY EQUATION FOR THE IDMS-TRACEABLE CREATININE METHODS. CLIN CHEM 2007;53:766-72 Performed By: #### B MP #### [address] [id number] GFR-NON AM. >60 Normal >60 [facility] Comment on above: Performed By: #### B MP #### [address] [id number] Glucose [Mass/Vol] 312 mg/dL High 74 - 99 [facility] Comment on above: Performed By: #### B MP #### [address] [id number] HCO3 (Bld) [Moles/Vol] 22 mmol/L Normal 21 - 32 [facility] Comment on above: Performed By: #### B MP #### [address] [id number] Potassium [Moles/Vol] 3.6 mmol/L Normal 3.5 - 5.3 [facility] Comment on above: Performed By: #### B MP #### [address] [id number] Sodium [Moles/Vol] 133 mmol/L Low 136 - 145 [facility] Comment on above: Performed By: #### B MP #### [address] [id number] Urea nitrogen [Mass/Vol] 12 mg/dL Normal 6 - 23 [facility] Comment on above: Performed By: #### B MP #### [address] [id number] BNPon 08-14-2021 Natriuretic peptide B (Bld) [Mass/Vol] 35 pg/mL Normal 0 - 99 [facility] Comment on above: Result Comment: . <1 00 pg/mL - Heart failure unlikely 100-299 pg/mL - Intermediate probability of acute heart . failure exacerbation. Correlate with clinical . context and patient history. >=300 pg/mL - Heart Failure likely. Correlate with clinical . context and patient history. BNP testing is performed using different testing methodology at [facility] than at other [facility]. Direct result comparisons should only be made within the same method. Performed By: #### B NP2 #### [address] [id number] CBC AND DIFFERENTIALon 08-14 % AUTOMATED IMMATURE GRAN 0.2 % Normal 0.0 - 0.9 [facility] Comment on above: Result Comment: Jojo ture Granulocyte Count (IG) includes promyelocytes, myelocytes and metamyelocytes but does not include bands. Percent differential counts (%) should be interpreted in the context of the absolute cell counts (cells/L). Performed By: #### C BCDF #### [address] [id number] Basophils (Bld) [#/Vol] 0.02 10*3/uL Normal 0.00 - 0.1 0 [facility] Comment on above: Performed By: #### C BCDF #### [address] [id number] Basophils/100 WBC (Bld) 0.3 % Normal 0.0 - 2.0 [facility] Comment on above: Performed By: #### C BCDF #### [address] [id number] Eosinophils (Bld) [#/Vol] 0.09 10*3/uL Normal 0.00 - 0.70 [facility] Comment on above: Performed By: #### C BCDF #### [address] [id number] Eosinophils/100 WBC (Bld) 1.4 % Normal 0.0 - 6.0 [facility] Comment on above: Performed By: #### C BCDF #### [address] [id number] Erythrocyte distribution width (RBC) [Ratio] 13.5 % Normal 11.5 - 14.5 [facility] Comment on above: Performed By: #### C BCDF #### [address] [id number] Hematocrit (Bld) [Volume fraction] 41.1 % Normal 36.0 - 46.0 [facility] Comment on above: Performed By: #### C BCDF #### [address] [id number] Hemoglobin (Bld) [Mass/Vol] 13.0 g/dL Normal 12.0 - 16.0 [facility] Comment on above: Performed By: #### C BCDF #### [address] [id number] Lymphocytes (Bld) [#/Vol] 2.23 10*3/uL Normal 1.20 - 4.80 [facility] Comment on above: Performed By: #### C BCDF #### [address] [id number] Lymphocytes/100 WBC (Bld) 34.5 % Normal 13.0 - 44.0 [facility] Comment on above: Performed By: #### C BCDF #### [address] [id number] MCHC (RBC) [Mass/Vol] 31.6 g/dL Low 32.0 - 36.0 [facility] Comment on above: Performed By: #### C BCDF #### [address] [id number] MCV (RBC) [Entitic vol] 85 fL Normal 80 - 100 [facility] Comment on above: Performed By: #### C BCDF #### [address] [id number] Monocytes (Bld) [#/Vol] 0.49 10*3/uL Normal 0.10 - 1.0 0 [facility] Comment on above: Performed By: #### C BCDF #### [address] [id number] Monocytes/100 WBC (Bld) 7.6 % Normal 2.0 - 10.0 [facility] Comment on above: Performed By: #### C BCDF #### [address] [id number] Neutrophils (Bld) [#/Vol] 3.63 10*3/uL Normal 1.20 - 7.70 [facility] Comment on above: Performed By: #### C BCDF #### [address] [id number] Neutrophils/100 WBC (Bld) 56.0 % Normal 40.0 - 80.0 [facility] Comment on above: Performed By: #### C BCDF #### [address] [id number] Platelets (Bld) [#/Vol] 374 10*3/uL Normal 150 - 450 [facility] Comment on above: Performed By: #### C BCDF #### [address] [id number] RBC 4.85 x10E12/L Normal 4.00 - 5.20 [facility] Comment on above: Performed By: #### C BCDF #### [address] [id number] WBC (Bld) [#/Vol] 6.5 10*3/uL Normal 4.4 - 11.3 [facility] Comment on above: Performed By: #### C BCDF #### [address] [id number] CHEST 1 VIEWon 08-14-2021 CHEST 1 VIEW Patient Name: PATT CRANE STUDY: CHEST 1 VIEW; 08/14/2021 5:54 pm INDICATION: Chest Pain. COMPARISON: None. ACCESSION NUMBER(S): [id number] ORDERING CLINICIAN: JIL YUN FINDINGS: AP radiograph of the chest was provided. CARDIOMEDIASTINAL SILHOUETTE: Cardiomediastinal silhouette is normal in size and configuration. LUNGS: Lungs are clear. ABDOMEN: No remarkable upper abdominal findings. BONES: No acute osseous changes. IMPRESSION: 1. No evidence of acute cardiopulmonary process. Electronically signed by: VÍCTOR MOORE MD Normal [facility] CT ANGIO CHEST FOR PEon - CT ANGIO CHEST FOR PE Patient Name: PATT CRANE STUDY: CT ANGIO CHEST FOR PE; 08/14/2021 7:44 pm INDICATION: cp, sob. COMPARISON: None. ACCESSION NUMBER(S): [id number] ORDERING CLINICIAN: MARQUISE PENA TECHNIQUE: Helical data [...] Electronically signed by: ROD ZIEGLER MD Normal [facility] Clinical Event Noteon 2020 Clinical Event Note Clinical Event: Clinical Event Note: Details Patient is a 41-year-old -[place]ic female presents ED with chest pain. Patient states that the pain is located in the center of her chest and radiates to the right side of her chest. Patient states that she works at [employer] and lifts a lot of heavy objects some as much as 50 pounds in weight and she says that 2 days ago while lifting she developed this pain in her chest. Patient states that the pain is exacerbated with lifting, coughing or taking a deep breath. Patient denies any history of DC or stroke but did have a TIA in 2010. Patient states she is also diabetic, type II and takes insulin. Patient is allergic to penicillin. Patient states she is currently asymptomatic. Electronic Signatures: Jil Yun (PAC) (Signed 14-Aug-2021 16:11) Authored: Clinical Event Note Last Updated: 14-Aug-2021 16:11 by Jil Yun (PAC) Normal [facility] D-DIMER, VTE EXCLUSIONon D-DIMER, VTE EXCLUSION 391 ng/mL FEU Normal < or = 500 [facility] Comment on above: Result Comment: The VTE [...] exclusion.) Performed By: #### D IMEX #### [address] [id number] Provider Note - ED v3on 07-30 Provider [...] her regular doctor as well as her sliver former. The work-up and plan were discussed with [...] Allergy Allerge (more content not included)... Normal [facility] Risk Screen - Adult Emergenc yon 08-14-2021 Risk Screen - Adult Emergency Preferred Language: Preferred Language: Preferred Language for Discussing Health Care (patient/designee)Engl [facility] Advanced Directives: Advance Directive/DNRno Family Violence Adult: Abuse Screen: Are you or have you been threatened or abused physically, emotionally, or sexually by anyoneno Learning Assessment (Patient): Learning Assessment (Patient): Patient is Able to be Assessed for Learningyes Factors Influencing Readiness to Learnacuteness of illness Factors that Impact Ability to Learnnone Devices/Methods Used to Communicatenone Learning Preferencesaudio Cultural Considerationsnone Developmental Considerationsnone Protestant Considerationsnone Learning Assessment (Other Learner): Learning Assessment (Other Learner): Other learner availableno Pressure Injury/TB/Substance: Pressure Injury: Do you have a coughno Smoking Statusnever smoker Alcohol Useoccasionally Drug Usedenies Drug 2 Usedenies Admission Risk Screen: Significant IndicatorsComplete CAGE: CAGE: Is this an injured patient at a Trauma Center ([facility] [place]/[facility]/[facility]/[place]): no Electronic Signatures: Baldev Corrigan) (Signed 14-Aug-2021 15:57) Authored: Preferred Language, Advanced Directives, Family Violence Adult, Learning Assessment (Patient), Learning Assessment (Other Learner), Pressure Injury/TB/Substance, Pressure Injury, CAGE Last Updated: 14-Aug-2021 15:57 by Baldev Corrigan (RN) Normal [facility] TROPONIN Ion 08-14-2021 Troponin I.cardiac [Mass/Vol] ng/mL Normal 0.00 - 0.03 [facility] Comment on above: Result Comment: LESS THAN [...] is performed using different testing methodology at [facility] than at other [facility]. Direct result comparisons should only be made within the same method. Performed By: #### T ROP2 #### [address] [id number] Triage - EDon 08-14-2021 Triage - ED [...] obeys commands Best Verbal Response: (V5) oriented Parchman Score: 15 Cough lasting greater than 3 [...] 14-Aug-2021 15:56 by Baldev Corrigan (NATHALIE) Normal [facility] Surgical Specimenon 01-17-20 21 Surgical Specimen [facility] [address] [place] [address] FINAL SURGICAL PATHOLOGY REPORT Patient Name: PATT CRANE Accession No: [id number] Age Sex: 1980 Location: [facility] Account No: [id number] Collected: 01/17/2021 Med Rec No: [id number] Received: 01/20/2021 Attend Phys: MIKE MUHAMMAD Completed: [...] in toto in one cassette. RENE/STUART CPT: 60802 X1 Alisia WAGNER M.D. 01/21/2021 Electronically signed out by Page 1 of 1 Invalid Interpretation Code [facility] Comment on above: Performed By: #### S UR #### [facility] [address] [facility] [address] Otheron 12-20-2020 ENLARGED UTERUS. 4 C M COMPLEX MASS UTERINE FUNDUS, SUSPECTED UTERINE FIBROID. 2 CM COMPLEX HYPOECHOIC LESION LEFT OVARY, PROBABLE CORPUS LUTEAL CYST. FREE FLUID IN POSTERIOR CUL-DE-SAC. NORMAL SIZE OVARIES. NO ABNORMAL ADNEXAL MASS. [facility], [place] PELVIC TRANSABDOMINA L AND TRANSVAGINAL [...] in both ovaries on color doppler imaging. [place], [place] Bry, Chpo Incoming Radiant Results From [employer] - 12/20/2020 2:10 PM EST PELVIC TRANSABDOMINAL [...] NORMAL SIZE OVARIES. NO ABNORMAL ADNEXAL MASS. [place], [place] HPV DNA Typingon 12-18-2020 HPV Type 16 Not detected Normal Not Detect [facility] HPV Type 18 Not detected Normal Not Detect [facility] HPVOH (Other types) Not detected Normal Not Detect [facility] Comment on above: Result Comment: *Inc ludes 31,33,35,39,45,51,52,56,58,59,66,68 genotypes Trichmonas Vaginalis Screen (EIA)on 12-14-2020 Trichomonas Vaginalis Screen (EIA) Negative Normal [facility] Comment on above: Performed By: #### E TRIC #### [facility] [address] [place] [address] Wet Prep-Medical Purposes On cisneros 12-14-2020 Wet Prep Clue Cellls None Seen Normal [facility] Comment on above: Performed By: #### W ETPR #### [facility] [address] [place] [address] Wet Prep Trichomonas See EIA Normal [facility] Comment on above: Performed By: #### W ETPR #### [facility] [address] [place] [address] Wet Prep Yeast None Seen Normal [facility] Comment on above: Performed By: #### W ETPR #### [facility] [address] [place] [address] Gynecological Specimen (Cyto logy)on 12-13-2020 Gynecological Specimen (Cytology) [facility] [address] [place] [address] FINAL CYTOLOGY PAP REPORT Patient Name: PATT CRANE Accession No: [id number] Age Sex: 1980 40 Y / F Location: [facility] Account No: [id number] Collected: 12/13/2020 Med Rec No: [id number] Received: 12/15/2020 Attend Phys: MIKE MUHAMMAD Completed: 12/19/2020 Perform Phys: MIKE MUHAMMAD SPECIMEN ADEQUACY: Satisfactory for Evaluation. Endocervical cells/transformation zone component present. GENERAL CATEGORIZATION: Negative for Intraepithelial Lesion or Malignancy Specimen: THINPREP LIQUID BASE IMAGED DIAGNOSTIC History: Source: Thin Prep Site: Cervical History: Previous abnormal smear? No History of CA? None given Lab Order#: [id number] Test Name Collected D AND T Result [...] (PCR) and nucleic acid hybridization. CPT: Technical: 19447 X1 Screened by: DULCE RESENDEZ(ASCP) DULCE RESENDEZ(ASCP) [...] processed and screened using a Thin Prep Vp Rheumatology at [facility] [address] [place] [address] All abnormal gynecologic interpretation is performed at [facility], unless otherwise noted in the report. Page 1 of 1 Invalid Interpretation Code [facility] Comment on above: Performed By: #### G YN #### [facility] [address] [place] [id number] HPV DNA Typingon 12-13-2020 HPV Comment See below Normal [facility] Comment on above: Result Comment: Th [...] C-Peptideon 11-22-2020 C-Peptide 2.5 ng/mL Normal 1.1-4.4 [facility] Comment on above: Result Comment: [facility] [address] [facility] [place] [address] Comprehensive Metabolic Pane gosia 11-19-2020 Albumin [Mass/Vol] 4.1 g/dL Normal 3.5-4.6 [facility] Comment on above: Performed By: #### C MP #### [facility] [address] [place] [address] ALP [Catalytic activity/Vol] 103 U/L Normal 40-130 [facility] Comment on above: Performed By: #### C MP #### [facility] [address] [place] [address] ALT [Catalytic activity/Vol] 12 U/L Normal 0-33 [facility] Comment on above: Performed By: #### C MP #### [facility] [address] [place] [address] Anion gap [Moles/Vol] 11 mmol/L Normal 9-15 [facility] Comment on above: Performed By: #### C MP #### [facility] [address] [place] [address] AST [Catalytic activity/Vol] 10 U/L Normal 0-35 [facility] Comment on above: Performed By: #### C MP #### [facility] [address] [place] [address] Bilirubin [Mass/Vol] 0.4 mg/dL Normal 0.2-0.7 [facility] Comment on above: Performed By: #### C MP #### [facility] [address] [place] [address] Calcium [Mass/Vol] 8.8 mg/dL Normal 8.5-9.9 [facility] Comment on above: Performed By: #### C MP #### [facility] [address] [place] [address] Chloride [Moles/Vol] 101 mmol/L Normal 95-107 [facility] Comment on above: Performed By: #### C MP #### [facility] [address] [place] [address] CO2 [Moles/Vol] 21 mmol/L Normal 20-31 [facility] Comment on above: Performed By: #### C MP #### [facility] [address] [place] [address] Creatinine [Mass/Vol] 0.69 mg/dL Normal 0.50-0.90 [facility] Comment on above: Performed By: #### C MP #### [facility] [address] [place] [address] GFR >60.0 Normal >60 [facility] Comment on above: Result Comment: >60 mL/min/1.73m2 EGFR, calc. for ages 18 and older using the MDRD formula (not corrected for weight), is valid for stable renal function. Performed By: #### C MP #### [facility] [address] [place] [address] GFR/1.73 sq M.predicted among blacks MDRD (S/P/Bld) [Vol rate/Area] mL/min/{1.73_m2} Normal >60 [facility] Comment on above: Result Comment: >60 mL/min/1.73m2 EGFR, calc. for ages 18 and older using the MDRD formula (not corrected for weight), is valid for stable renal function. Performed By: #### C MP #### [facility] [address] [place] [address] Globulin (S) [Mass/Vol] 3.8 g/dL Critically high 2.3-3.5 [facility] Comment on above: Performed By: #### C MP #### [facility] [address] [place] [address] Glucose [Mass/Vol] 282 mg/dL Critically high 70-99 [facility] Comment on above: Performed By: #### C MP #### [facility] [address] [place] [address] Potassium [Moles/Vol] 4.0 mmol/L Normal 3.4-4.9 [facility] Comment on above: Performed By: #### C MP #### [facility] [address] [place] [address] Protein [Mass/Vol] 7.9 g/dL Normal 6.3-8.0 [facility] Comment on above: Performed By: #### C MP #### [facility] [address] [place] [address] Sodium [Moles/Vol] 133 mmol/L Low 135-144 [facility] Comment on above: Performed By: #### C MP #### [facility] [address] [place] [address] Urea nitrogen [Mass/Vol] 8 mg/dL Normal 6-20 [facility] Comment on above: Performed By: #### C MP #### [facility] [address] [place] [address] Lipid Panel Fastingon 2019 Cholesterol [Mass/Vol] 136 mg/dL Normal 0-199 [facility] Comment on above: Result Comment: ATP III Cholesterol classification is Desirable. Performed By: #### L IPDF #### [facility] [address] [place] [address] HDL Cholesterol Fasting 45 mg/dL Normal 40-59 [facility] Comment on above: Result Comment: ATP [...] CHD Performed By: #### L IPDF #### [facility] [address] [place] [address] LDL Cholesterol (Calculated) Fasting 75 mg/dL Normal 0-129 [facility] Comment on above: Result Comment: ATP III LDL Classification is Optimal. Performed By: #### L IPDF #### [facility] [address] [place] [address] Triglycerides Fasting 82 mg/dL Normal 0-150 [facility] Comment on above: Result Comment: ATP III Triglycerides Classification is Normal. Performed By: #### L IPDF #### [facility] [address] [place] [address] FOOT 3 OR MORE VW RTon 08-02 FOOT 3 OR MORE VW RT DATE OF EXAM: Aug 02 2017 7:40PMCLINICAL HISTORY/ Name: TIFFANY CRANEASTUDY:FOOT 3 OR MORE VW RT; HEEL/CALCANEUS RT; 08/02/2017 7:40 pmINDICATION:Trauma.CO MPARISON:None.ACCESSIO N NUMBER(S):[id number]; [id number] CLINICIAN:BAUTISTA BAIRDS:No evidence of fracture, dislocation or destructive lesion. Joint spaces and alignment are maintained. No significant soft tissue abnormalities identified.CONCLUSION: IMPRESSION:No fracture identified. Normal [facility] HEEL/CALCANEUS RTon 08-02-20 17 HEEL/CALCANEUS RT DATE OF EXAM: Aug 02 2017 7:40PMCLINICAL HISTORY/ Name: BLANCA CRANEUDY:FOOT 3 OR MORE VW RT; HEEL/CALCANEUS RT; 08/02/2017 7:40 pmINDICATION:Trauma.CO MPARISON:None.ACCESSIO N NUMBER(S):[id number]; [id number] CLINICIAN:BAUTISTA FUENTES:No evidence of fracture, dislocation or destructive lesion. Joint spaces and alignment are maintained. No significant soft tissue abnormalities identified.CONCLUSION: IMPRESSION:No fracture identified. Normal [facility] ECG B/O W INTERP (MED OFFICE ) [facility] Vital Signs Date Time Vital Sign Value Performing Clinician Facility 07-15-2025 04:20-0400 Diastolic blood pressure 89 mm[Hg] Garry MORROW Work Phone: [facility] 07-15-2025 04:20-0400 Heart rate 89 /min Garry MORROW Work Phone: [facility] 07-15-2025 04:20-0400 Respiratory rate 18 /min Garry Trill CLERK OF COURT-C Work Phone: [facility] 07-15-2025 04:20-0400 SaO2% (BldA) [Mass fraction] 98 % Garry Trill CLERK OF COURT-C Work Phone: [facility] 07-15-2025 04:20-0400 Systolic blood pressure 129 mm[Hg] Garry Trill CLERK OF COURT-C Work Phone: [facility] 07-15-2025 04:01-0400 Body temperature 98.1 [degF] Garry Trill CLERK OF COURT-C Work Phone: [facility] 07-14-2025 23:23-0400 Body height 160.02 cm Garry Trill CLERK OF COURT-C Work Phone: [facility] 07-14-2025 23:23-0400 Body mass index (BMI) [Ratio] 37 kg/m2 Garry Trill CLERK OF COURT-C Work Phone: [facility] 07-14-2025 23:23-0400 Body weight 94.98 kg Garry Trill CLERK OF COURT-C Work Phone: [facility] 06-20-2025 08:09-0400 Body height 160.02 cm Garry Trill CLERK OF COURT-C Work Phone: [facility] 06-20-2025 08:09-0400 Body mass index (BMI) [Ratio] 36.3 kg/m2 Garry Trill CLERK OF COURT-C Work Phone: [facility] 06-20-2025 08:09-0400 Body weight 92.98 kg Garry Trill CLERK OF COURT-C Work Phone: [facility] 06-20-2025 08:09-0400 Diastolic blood pressure 86 mm[Hg] Garry Trill CLERK OF COURT-C Work Phone: [facility] 06-20-2025 08:09-0400 Heart rate 81 /min Garry Trill CLERK OF COURT-C Work Phone: [facility] 06-20-2025 08:09-0400 Respiratory rate 16 /min Garry Rodriguez CLERK OF COURT-C Work Phone: [facility] 06-20-2025 08:09-0400 Systolic blood pressure 135 mm[Hg] Garry Trichito CLERK OF COURT-C Work Phone: [facility] 04-09-2025 16:15-0400 Diastolic blood pressure 98 mm[Hg] Garry Trichito ABLE BODIED SEAMAN.CHURCH OFFICIAL Work Phone: [facility] 04-09-2025 16:15-0400 Systolic blood pressure 188 mm[Hg] Garry Trichito ABLE BODIED SEAMAN.CHURCH OFFICIAL Work Phone: [facility] 04-09-2025 15:43-0400 Body height 160 cm Garry Rodriguez ABLE BODIED SEAMAN.CHURCH OFFICIAL Work Phone: [facility] 04-09-2025 15:43-0400 Body mass index (BMI) [Ratio] 35.96 kg/m2 Garry Trichito ABLE BODIED SEAMAN.CHURCH OFFICIAL Work Phone: [facility] 04-09-2025 15:43-0400 Body temperature 98.01 [degF] Garry Trichito ABLE BODIED SEAMAN.CHURCH OFFICIAL Work Phone: [facility] 04-09-2025 15:43-0400 Body weight 92.08 kg Garry Trichito ABLE BODIED SEAMAN.CHURCH OFFICIAL Work Phone: [facility] 04-09-2025 15:43-0400 Heart rate 103 /min Garry Rodriguez ABLE BODIED SEAMAN.CHURCH OFFICIAL Work Phone: [facility] 04-09-2025 15:43-0400 SaO2% (BldA) [Mass fraction] 98 % Garry Trichito ABLE BODIED SEAMAN.CHURCH OFFICIAL Work Phone: [facility] 12-06-2024 13:13-0500 Body height 160 cm Garry Trichito ABLE BODIED SEAMAN.CHURCH OFFICIAL Work Phone: [facility] 12-06-2024 13:13-0500 Body mass index (BMI) [Ratio] 35.61 kg/m2 Garry Trichito ABLE BODIED SEAMAN.CHURCH OFFICIAL Work Phone: [facility] 12-06-2024 13:13-0500 Body temperature 98.01 [degF] Garry Trill ABLE BODIED SEAMAN.CHURCH OFFICIAL Work Phone: [facility] 12-06-2024 13:13-0500 Body weight 91.17 kg Garry Trill ABLE BODIED SEAMAN.CHURCH OFFICIAL Work Phone: [facility] 12-06-2024 13:13-0500 Diastolic blood pressure 62 mm[Hg] Garry Trill ABLE BODIED SEAMAN.CHURCH OFFICIAL Work Phone: [facility] 12-06-2024 13:13-0500 Heart rate 56 /min Garry Trill ABLE BODIED SEAMAN.CHURCH OFFICIAL Work Phone: [facility] 12-06-2024 13:13-0500 Respiratory rate 16 /min Garry Trill ABLE BODIED SEAMAN.CHURCH OFFICIAL Work Phone: [facility] 12-06-2024 13:13-0500 SaO2% (BldA) [Mass fraction] 98 % Garry Trill ABLE BODIED SEAMAN.CHURCH OFFICIAL Work Phone: [facility] 12-06-2024 13:13-0500 Systolic blood pressure 122 mm[Hg] Garry Trill ABLE BODIED SEAMAN.CHURCH OFFICIAL Work Phone: [facility] 01-12-2024 10:18-0500 Diastolic blood pressure 68 mm[Hg] Garry Trill ABLE BODIED SEAMAN.CHURCH OFFICIAL Work Phone: [facility] 01-12-2024 10:18-0500 Systolic blood pressure 140 mm[Hg] Garry Trill ABLE BODIED SEAMAN.CHURCH OFFICIAL Work Phone: [facility] 01-12-2024 10:08-0500 Body height 160 cm Garry Trill ABLE BODIED SEAMAN.CHURCH OFFICIAL Work Phone: [facility] 01-12-2024 10:08-0500 Body temperature 97.59 [degF] Garry Trill ABLE BODIED SEAMAN.CHURCH OFFICIAL Work Phone: [facility] 01-12-2024 10:08-0500 Body weight 83.92 kg Garry Rhodeschito GARBER.CHURCH OFFICIAL Work Phone: [facility] 01-12-2024 10:08-0500 Heart rate 74 /min Garry Arturo GARBER.CHURCH OFFICIAL Work Phone: [facility] 01-12-2024 10:08-0500 SaO2% (BldA) [Mass fraction] 99 % Garry Rhodeschito GARBER.CHURCH OFFICIAL Work Phone: [facility] 09-09-2023 15:58-0400 Body height 160.02 cm MD Placido Pena Work Phone: [facility] 09-09-2023 15:58-0400 Body mass index (BMI) [Ratio] 36.6 kg/m2 MD Placido Pena Work Phone: [facility] 09-09-2023 15:58-0400 Body weight 93.89 kg MD Placido Pena Work Phone: [facility] 09-09-2023 15:58-0400 Diastolic blood pressure 103 mm[Hg] MD Placido Pena Work Phone: [facility] 09-09-2023 15:58-0400 Heart rate 103 /min MD Placido Pena Work Phone: [facility] 09-09-2023 15:58-0400 Respiratory rate 16 /min MD Placido Pena Work Phone: [facility] 09-09-2023 15:58-0400 Systolic blood pressure 141 mm[Hg] MD Placido Pena Work Phone: [facility] 08-12-2023 16:47-0400 Body temperature 97.4 [degF] MD Placido Pena Work Phone: [facility] 08-12-2023 16:47-0400 Diastolic blood pressure 92 mm[Hg] MD Placido Pena Work Phone: [facility] 08-12-2023 16:47-0400 Heart rate 89 /min MD Placido Pena Work Phone: [facility] 08-12-2023 16:47-0400 Respiratory rate 18 /min MD Placido Pena Work Phone: [facility] 08-12-2023 16:47-0400 SaO2% (BldA) [Mass fraction] 96 % MD Placido Pena Work Phone: [facility] 08-12-2023 16:47-0400 Systolic blood pressure 140 mm[Hg] MD Placido Pena Work Phone: [facility] 08-11-2023 21:27-0400 Body mass index (BMI) [Ratio] 36.3 kg/m2 MD Placido Pena Work Phone: [facility] 08-11-2023 21:27-0400 Body weight 92.98 kg MD Placido Pena Work Phone: [facility] 08-11-2023 20:50-0400 Body temperature 97.7 [degF] [facility] 08-11-2023 20:50-0400 Diastolic blood pressure 99 mm[Hg] [facility] 08-11-2023 20:50-0400 Heart rate 108 /min [facility] 08-11-2023 20:50-0400 Respiratory rate 19 /min [facility] 08-11-2023 20:50-0400 SaO2% (BldA) [Mass fraction] 97 % [facility] 08-11-2023 20:50-0400 Systolic blood pressure 148 mm[Hg] [facility] 08-11-2023 16:41-0400 Body height 160.02 cm [facility] 08-11-2023 16:41-0400 Body mass index (BMI) [Ratio] 36.4 kg/m2 [facility] 08-11-2023 16:41-0400 Body weight 93.3 kg [facility] 05-05-2023 13:09-0400 Body height 160 cm Tone Espino MD Work Phone: [facility] 05-05-2023 13:09-0400 Body weight 90.72 kg Tone Espino MD Work Phone: [facility] 05-05-2023 13:09-0400 Diastolic blood pressure 80 mm[Hg] Tone Espino MD Work Phone: [facility] 05-05-2023 13:09-0400 Heart rate 98 /min Tone Espino MD Work Phone: [facility] 05-05-2023 13:09-0400 SaO2% (BldA) [Mass fraction] 99 % Tone Espino MD Work Phone: [facility] 05-05-2023 13:090400 Systolic blood pressure 144 mm[Hg] Tone Espino MD Work Phone: [facility] 03-23-2023 10:34-0400 Body height 160 cm Garry Trichito ABLE BODIED SEAMAN.CHURCH OFFICIAL Work Phone: [facility] 03-23-2023 10:34-0400 Body temperature 98.6 [degF] Garry Trill ABLE BODIED SEAMAN.CHURCH OFFICIAL Work Phone: [facility] 03-23-2023 10:34-0400 Body weight 92.99 kg Garry Trichito ABLE BODIED SEAMAN.CHURCH OFFICIAL Work Phone: [facility] 03-23-2023 10:34-0400 Diastolic blood pressure 74 mm[Hg] Garry Trill ABLE BODIED SEAMAN.CHURCH OFFICIAL Work Phone: [facility] 03-23-2023 10:34-0400 Heart rate 89 /min Garry Trill ABLE BODIED SEAMAN.CHURCH OFFICIAL Work Phone: [facility] 03-23-2023 10:34-0400 SaO2% (BldA) [Mass fraction] 98 % Garry Trill ABLE BODIED SEAMAN.CHURCH OFFICIAL Work Phone: [facility] 03-23-2023 10:34-0400 Systolic blood pressure 126 mm[Hg] Garry Trill ABLE BODIED SEAMAN.CHURCH OFFICIAL Work Phone: [facility] 02-18-2023 10:06-0400 Diastolic blood pressure 88 mm[Hg] Garry Rodriguez APRN.CHURCH OFFICIAL Work Phone: [facility] 02-18-2023 10:06-0400 Systolic blood pressure 158 mm[Hg] Garry Rodriguez APRN.CHURCH OFFICIAL Work Phone: [facility] 02-17-2023 11:21-0400 Body height 160 cm Garry Rodriguez APRN.CHURCH OFFICIAL Work Phone: [facility] 02-17-2023 11:21-0400 Body temperature 98.4 [degF] Garry Rodriguez APRN.CHURCH OFFICIAL Work Phone: [facility] 02-17-2023 11:21-0400 Body weight 92.99 kg Garry Rodriguez APRN.CHURCH OFFICIAL Work Phone: [facility] 02-17-2023 11:21-0400 Heart rate 95 /min Garry Rodriguez APRN.CHURCH OFFICIAL Work Phone: [facility] 02-17-2023 11:21-0400 SaO2% (BldA) [Mass fraction] 98 % Garry Rodriguez APRN.CHURCH OFFICIAL Work Phone: [facility] 07-10-2022 09:14-0400 Body height 157.5 cm Ama Augusta-Yelitza PA-C Work Phone: [facility] 07-10-2022 09:14-0400 Body mass index (BMI) [Ratio] 34.75 kg/m2 Ama Augusta-Yelitza PA-C Work Phone: [facility] [employer] 07-10-2022 09:14-0400 Body temperature 98.49 [degF] Ama Augusta-Yelitza PA-C Work Phone: [facility] [employer] 07-10-2022 09:14-0400 Body weight 86.18 kg Ama Augusta-Yelitza PA-C Work Phone: [facility] [employer] 07-10-2022 09:14-0400 Diastolic blood pressure 90 mm[Hg] Ama Augusta-Yelitza PA-C Work Phone: [facility] 07-10-2022 09:14-0400 Heart rate 92 /min Ama Augusta-Yelitza PA-C Work Phone: [facility] 07-10-2022 09:14-0400 Respiratory rate 20 /min Ama Augusta-Yelitza PA-C Work Phone: [facility] 07-10-2022 09:14-0400 SaO2% (BldA) [Mass fraction] 98 % Ama Augusta-Yelitza PA-C Work Phone: [facility] 07-10-2022 09:14-0400 Systolic blood pressure 148 mm[Hg] Ama Augusta-Yelitza PA-C Work Phone: [facility] 08-14-2021 22:32-0400 Diastolic blood pressure 91 mm[Hg] No Pcp Required [facility] 08-14-2021 22:32-0400 Heart rate 84 /min [facility] 08-14-2021 22:32-0400 Respiratory rate 20 /min No Pcp Required [facility] 08-14-2021 22:32-0400 SaO2% (BldA) [Mass fraction] 98 % No Pcp Required [facility] 08-14-2021 22:32-0400 Systolic blood pressure 167 mm[Hg] No Pcp Required [facility] 08-14-2021 17:51-0400 Body height 157.4 cm No Pcp Required [facility] 08-14-2021 17:51-0400 Body temperature 97.34 [degF] No Pcp Required [facility] 08-14-2021 17:51-0400 Body weight 86 kg No Pcp Required [facility] Encounters Encounter Date Encounter Type Care Provider Facility Start: 07-15-2025 Evaluation and management of inpatient Dr. Denis Watts DO -[facility] Work Phone: Start: 06-28-2025 End: 06-29-2025 Refill Garry Rodriguez ABLE BODIED SEAMAN.CHURCH OFFICIAL Work Phone: [facility] Comment on above: Refill Request Start: 06-26-2025 End: 06-26-2025 Refill Garry Rodriguez ABLE BODIED SEAMAN.CHURCH OFFICIAL Work Phone: [facility] Comment on above: Refill Request Start: 06-20-2025 End: 06-20-2025 Patient encounter procedure Keenan Lynne CLERK OF COURT-Liliane -[facility] Work Phone: Start: 06-20-2025 End: 06-20-2025 ambulatory Garry MORROW Work Phone: -[facility] Start: 06-06-2025 End: 06-08-2025 ambulatory Garry Rodriguez ABLE BODIED SEAMAN.CHURCH OFFICIAL Work Phone: [facility] Start: 06-06-2025 End: 06-08-2025 Patient encounter procedure Garry Rodriguez ABLE BODIED SEAMAN.CHURCH OFFICIAL Work Phone: [facility] Comment on above: Referral Start: 05-30-2025 End: 05-30-2025 ambulatory Federico Ambriz PT [facility] Comment on above: Plantar fasciitis (P rimary Dx); Pain of left heel Start: 05-24-2025 End: 05-24-2025 Patient encounter procedure [facility] Provider [facility] Department Start: 04-30-2025 End: 04-30-2025 Patient encounter procedure Emilia Griffiths Work Phone: Podiatry Comment on above: Plantar fasciitis (P rimary Dx) Start: 04-30-2025 End: 04-30-2025 ambulatory EMILIA GRIFFITHS Facility:[facility] Start: 04-11-2025 End: 04-11-2025 ambulatory Federico Ambriz PT [facility] Comment on above: Pain of left heel; Plantar fasciitis Start: 04-09-2025 End: 04-09-2025 Patient encounter procedure Garry Rodriguez APRN.CHURCH OFFICIAL Work Phone: [facility] Comment on above: Type 2 diabetes maricruz itus with hyperglycemia, without long-term current use of insulin (HCC) (Primary Dx); Cardiomyopathy, unspecified type (HCC); Essential (primary) hypertension; Dyslipidemia; Plantar fasciitis of left foot; Presence of intrauterine contraceptive device; Encounter for screening mammogram for breast cancer Start: 04-09-2025 End: 04-09-2025 ambulatory GARRY RODRIGUEZ Facility:[facility] Start: 04-05-2025 End: 04-10-2025 ambulatory Garry Rodriguez APRN.CHURCH OFFICIAL Work Phone: [facility] Comment on above: ADA Start: 04-04-2025 End: 04-05-2025 Follow-up encounter Garry Rodriguez APRN.CNP Work Phone: [facility] Comment on above: Results Start: 04-02-2025 End: 04-27-2025 ambulatory Emilia Griffiths Work Phone: Podiatry Comment on above: A.D.A Start: 03-26-2025 End: 03-26-2025 Patient encounter procedure Emilia Griffiths Work Phone: Podiatry Comment on above: Pain of left heel (P rimary Dx); Plantar fasciitis Start: 03-26-2025 End: 03-26-2025 ambulatory EMILIA GRIFFITHS Facility:[facility] Start: 03-22-2025 End: 03-22-2025 ambulatory GARRY RODRIGUEZ Facility:[facility] Start: 01-09-2025 End: 01-09-2025 ambulatory EMILIA GRIFFITHS Facility:[facility] Start: 01-09-2025 End: 01-09-2025 Patient encounter procedure Emilia Griffiths Work Phone: Podiatry Comment on above: Plantar fasciitis (P rimary Dx); Pain of left heel Start: 12-13-2024 End: 12-13-2024 ambulatory PIERO RODRIGUEZ APRN-CHURCH OFFICIAL Facility:[facility] Start: 12-13-2024 End: 12-13-2024 Patient encounter procedure KRISTYN BRIONES MD [facility] Start: 12-12-2024 End: 12-12-2024 Telephone encounter Garry Rodriguez APRN.CNP Work Phone: [facility] Comment on above: Electronic Communica tion (Ozempic denied ) Start: 12-11-2024 End: 12-11-2024 ambulatory Garry Rodriguez APRN.CNP Work Phone: [facility] Comment on above: New prescription Start: 12-11-2024 End: 12-11-2024 E-mail encounter from caregiver Garry Rodriguez APRN.CNP Work Phone: [facility] Start: 12-11-2024 End: 12-11-2024 Telephone encounter Garry Rodriguez APRN.CNP Work Phone: [facility] Comment on above: Results Start: 12-07-2024 End: 12-07-2024 Telephone encounter Garry Rodriguez APRN.CNP Work Phone: [facility] Comment on above: Electronic Communica tion (Ozempic denied ) Start: 12-06-2024 End: 12-06-2024 Subsequent hospital visit by physician [facility] Comment on above: Pain of left heel [M 79.672] Start: 12-06-2024 End: 12-06-2024 Patient encounter procedure Garry Rodriguez APRN.CHURCH OFFICIAL Work Phone: [facility] Comment on above: Well adult exam [...] encounter status Garry Rodriguez APRN.CNP Work Phone: [facility] Work Phone: Start: 12-06-2024 End: 12-06-2024 ambulatory GARRY RODRIGUEZ Facility:[facility] Start: 12-06-2024 Encounter for genera l adult medical examination without abnormal findings GARRY RODRIGUEZ [facility] Start: 12-04-2024 End: 12-05-2024 Refill Garry Rodriguez APRN.CHURCH OFFICIAL Work Phone: [facility] Comment on above: Refill Request Start: 11-24-2024 End: 11-24-2024 ambulatory KRISTYN BRIONES MD Facility:[facility] Start: 11-24-2024 End: 11-24-2024 Patient encounter procedure KRISTYN BRIONES MD [facility] Start: 11-23-2024 End: 11-23-2024 ambulatory Garry Rodriguez APRN.CHURCH OFFICIAL Work Phone: [facility] Comment on above: Positive t est Start: 11-16-2024 End: 11-16-2024 ambulatory GARRY RODRIGUEZ Facility:[facility] Start: 11-16-2024 End: 11-16-2024 Subsequent hospital visit by physician [facility] (I-Stat) Work Phone: Cat Scan Comment on above: Lung nodule [R91.1] Start: 10-09-2024 End: 10-09-2024 Telephone encounter Garry Rodriguez APRN.CHURCH OFFICIAL Work Phone: [facility] Comment on above: Orders Start: 08-16-2024 ambulatory Alexia Stacy NP Facili ty:[facility] Start: 05-23-2024 ambulatory PIERO Sultana ABLE BODIED SEAMAN-CHURCH OFFICIAL Facility:[facility] Start: 05-10-2024 End: 05-10-2024 ambulatory KRISTYN BRIONES MD Facility:[facility] Start: 05-10-2024 End: 05-10-2024 Patient encounter procedure KRISTYN BRIONES MD [facility] Start: 03-20-2024 Telephone encounter Garry Rodriguez APRN.CNP Work Phone: [facility] Comment on above: Medication Dosage Ad justment (Trulicity) Start: 02-16-2024 End: 02-16-2024 ambulatory KRISTYN BRIONES MD Facility:[facility] Start: 02-16-2024 End: 02-16-2024 Patient encounter procedure KRISTYN BRIONES MD [facility] Start: 01-13-2024 ambulatory Garry sultana APRN.CNP Work Phone: [facility] Start: 01-13-2024 Letter encounter Garry dale APRN.CNP Work Phone: [facility] Comment on above: Letter for airport Start: 01-12-2024 Telephone encounter Garry Rodriguez APRN.CNP Work Phone: [facility] Comment on above: Results (CT abd/pel results) Start: 01-12-2024 End: 01-12-2024 Patient encounter procedure Garry Rodriguez APRN.CNP Work Phone: [facility] Comment on above: Type 2 diabetes maricruz itus without complication, without long- term current use of insulin (HCC) (Primary Dx); Encounter for screening mammogram for breast cancer; Chronic right shoulder pain; Fatty liver Start: 01-08-2024 E-mail encounter fro m caregiver Garry Rodriguez APRN.CNP Work Phone: [facility] Start: 01-08-2024 Patient encounter procedure Garry Rodriguez APRN.CNP Work Phone: [facility] Comment on above: Appointment Request (HM) Start: 10-27-2023 End: 10-31-2023 ambulatory PIERO BELCHER Facility:[facility] Start: 10-27-2023 End: 10-31-2023 Encounter for gynecological examination (general) (routine) without abnormal findings JESSICA GALLEGO Facility:[facility] Start: 10-12-2023 End: 10-12-2023 ambulatory MD Placido Pena Work Phone: [facility] Work Phone: Start: 10-12-2023 End: 10-12-2023 Patient encounter procedure MD Placido Pena Work Phone: [facility] Work Phone: Start: 10-06-2023 Telephone encounter Garry Rodriguez APRN.CHURCH OFFICIAL Work Phone: [facility] Comment on above: Results (CT A/P) Start: 10-06-2023 End: 10-06-2023 Subsequent [facility] Comment on above: Intra-abdominal and pelvic swelling, mass and lump, unspecified site [R19.00] Start: 09-21-2023 End: 09-21-2023 ambulatory MD Placido Pena Work Phone: [facility] Work Phone: Start: 09-21-2023 End: 09-21-2023 Patient encounter procedure MD Placido Pena Work Phone: [facility] Work Phone: Start: 09-16-2023 Telephone encounter Garry Rodriguez APRN.CHURCH OFFICIAL Work Phone: [facility] Comment on above: Patient Question; Re sults Start: 09-15-2023 End: 09-15-2023 Subsequent hospital visit by physician [facility] Work Phone: Radiology Comment on above: Epigastric pain [R10 .13] Start: 09-13-2023 ambulatory Garry sultana APRN.CHURCH OFFICIAL Work Phone: [facility] Comment on above: Abdomen Start: 09-10-2023 Telephone encounter Akshat Quesada MA [facility] Comment on above: Results Start: 09-09-2023 End: 09-09-2023 Patient encounter procedure MD Placido Pena Work Phone: [facility] Work Phone: Start: 09-08-2023 Telephone encounter Tone goss MD Work Phone: [facility] Comment on above: Results Start: 08-12-2023 Non-patient / Non-visit MD Adeline Pena Work Phone: [facility] Work Phone: Start: 08-12-2023 Non-patient / Non-visit MD Adeline Pena Work Phone: [facility] Start: 08-11-2023 Non-patient / Non-visit MD Adeline Pena Work Phone: [facility] Work Phone: Start: 08-11-2023 End: 08-12-2023 Evaluation and management of inpatient [facility] Work Phone: Start: 08-11-2023 End: 08-11-2023 Patient encounter procedure Lauren Cotto APRN.CHURCH OFFICIAL Work Phone: [facility] Comment on above: Dizziness (Primary D x) Start: 07-01-2023 Telephone encounter Tone goss MD Work Phone: [facility] Comment on above: Results Start: 05-05-2023 End: 05-05-2023 Patient encounter procedure Tone Espino MD Work Phone: [facility] Comment on above: cardiomyopathy, post (Primary Dx); Hyperlipidemia, unspecified hyperlipidemia type Start: 03-23-2023 Telephone encounter Akshat Quesada JOHN [facility] Comment on above: Medication Problem ( PRIOR AUTH DONE ON OZEMPIC ) Start: 03-23-2023 End: 03-23-2023 Patient encounter procedure Garry Rodriguez APRN.CHURCH OFFICIAL Work Phone: [facility] Comment on above: Type 2 diabetes maricruz itus with hyperglycemia, with long-term current use of insulin (HCC) (Primary Dx); Obesity, Class II, BMI 35-39.9; Depression screening Start: 02-25-2023 Refill Garry sultana APRN.CNP Work Phone: [facility] Comment on above: Refill Request Results (X-Ray) Results (Mammogram) Start: 02-24-2023 Telephone encounter [facility] Comment on above: Patient Update (Prio r auth on ozempic ) Start: 02-23-2023 Documentation procedure Mammog edwar Coordinator [facility] Start: 02-23-2023 Letter encounter Mammography Coordinator [facility] Department Start: 02-23-2023 End: 02-23-2023 Refill [facility] Comment on above: Encounter for screen ing mammogram for malignant neoplasm of breast [Z12.31] Start: 02-22-2023 Telephone encounter [facility] Comment on above: Medication Problem Start: 02-19-2023 End: 02-19-2023 Subsequent hospital visit by physician Ac [facility] Work Phone: Radiology Comment on above: Chronic right should er pain [M25.511, G89.29] Start: 02-17-2023 End: 02-17-2023 Patient encounter procedure Garry Rodriguez APRN.CNP Work Phone: [facility] Comment on above: Type 2 diabetes [...] 07-10-2022 Emergency department patient visit AMA VAUGHN [facility] Start: 07-10-2022 End: 07-10-2022 Emergency department patient visit Ama Vaughn PA-C Work Phone: [facility] Comment on above: Metatarsalgia of lef t foot (Primary Dx) Start: 01-29-2022 End: 01-30-2022 ambulatory AMA RODERICK [facility] Start: 01-29-2022 End: 01-29-2022 Subsequent hospital visit by physician [facility] Comment on above: Arrived Start: 08-14-2021 End: 08-14-2021 Emergency department patient visit Marquise Barrios ED 21 Start: 12-19-2020 End: 12-21-2020 Subsequent hospital visit by physician Josh Ul[facility] 2 [facility] Comment on above: Menorrhagia with reg ular cycle Start: 01-16-2020 End: 01-16-2020 Subsequent hospital visit by physician Peter [facility] Comment on above: Canceled (Patient) Start: 01-09-2020 End: 01-09-2020 Subsequent hospital visit by physician Peter Rea [facility] Start: 01-02-2020 End: 01-02-2020 Subsequent hospital visit by physician Moe Wong [facility] Comment on above: Arrived Start: 12-26-2019 End: 12-26-2019 Subsequent hospital visit by physician Татьяна Dinh TOY ASSEMBLER [facility] Comment on above: Canceled (Other) Start: 12-19-2019 End: 12-19-2019 Subsequent hospital visit by physician Moe Wong PTA [facility] Start: 12-12-2019 End: 12-12-2019 Subsequent hospital visit by physician Shasta Coe PT [facility] Comment on above: Canceled (Other) Start: 12-05-2019 End: 12-05-2019 Subsequent hospital visit by physician Peter [facility] Comment on above: Arrived Start: 11-28-2019 End: 11-28-2019 Subsequent hospital visit by physician Sonia Castellano PT [facility] Comment on above: Arrived Start: 08-02-2017 End: 08-02-2017 Emergency department patient visit LISSA Hickman SHANIKAJAEL Facility:[id number] Start: 08-02-2017 Ambulatory Facility:[id number] Procedures Date Procedure Procedure Detail Performing Clinician Start: 07-15-2025 CT angiography of he ad and neck Garry Rodriguez NP-C Work Phone: Start: 07-15-2025 CT of head without contrast Garry GUARDADOC Work Phone: Start: 07-15-2025 Estimated creatinine clearance Garry Rodriguez CLERK OF COURT-C Work Phone: Start: 04-09-2025 Hemoglobin A1c/Hemoglobin.total in Blood Garry Rodriguez ABLE BODIED [employer] Work Phone: Start: 12-06-2024 Urine albumin quantitative Garry Rodriguez APRN.CHURCH OFFICIAL Work Phone: Start: 12-06-2024 Hemoglobin A1c/Hemoglobin.total in Blood Garry Rodriguez ABLE BODIED [employer] Work Phone: Start: 12-06-2024 Adult depression screening assessment [facility] Start: 01-12-2024 Hemoglobin A1c/Hemoglobin.total in Blood Garry Rodriguez ABLE BODIED [employer] Work Phone: Start: 11-29-2023 Induced dil ation & evacuation KRISTYN BRIONES MD Start: 10-06-2023 Ct abdomen & pelvis w/contrast material Garry Rodriguez APRN.CHUR[employer] OFFICIAL Work Phone: Start: 09-15-2023 Us abdominal real ti me w/image limited Garry Rodriguez APRN.CH[employer] OFFICIAL Work Phone: Start: 08-11-2023 CT angiography of ch est with contrast Start: 08-11-2023 Plain chest X-ray Start: 05-05-2023 Ecg routine ecg w/le ast 12 lds w/i&r Tone Espino MD Work Phone: Start: 02-23-2023 End: 02-23-2023 Mammography Garry Rodriguez APRN .[employer] Work Phone: Start: 02-19-2023 Radex shoulder compl ete minimum 2 views Garry Rodriguez APRN.CHUR[employer] OFFICIAL Work Phone: Start: 01-27-2023 Hemoglobin A1c/Hemoglobin.total in [...] ion [Identifier] in Cervix by Cyto stain [facility] Schedule Start: 08-26-2011 section KRISTYN BRIONES MD Plan of Treatment Date Care Activity Detail Author Start: 2031 Shingles Vaccine (1 of 2) Shingles Vaccine (1 of 2) [facility] Work Phone: Start: 04-09-2026 Annual PCP Team Chronic Disease Visit Annual PCP Team Chronic Disease Visit [facility] Start: 04-09-2026 Urine microalbumin profile DTaP,Tdap,Td Vaccine (3 - Td or Tdap) [facility] Comment on above: Postponed from 04/01/2025 (Declined at t his time) Start: 03-22-2026 Hepatitis B surface antibody level LDL Cholesterol [facility] Start: 12-13-2025 PAP TESTING PAP TESTING [facility] Start: 12-13-2025 Screening for malignant neoplasm of cervix [facility] Start: 12-06-2025 Annual PCP Team Chronic Disease Visit Annual PCP Team Chronic Disease Visit [facility] Start: 12-06-2025 Anxiety Screening Anxiety Screening [facility] Start: 12-06-2025 BP Controlled (<130/80) BP Controlled (<130/80) [facility] in Start: 12-06-2025 Depression Screening Depression Screening [facility] Start: 12-06-2025 Hepatitis B screening Urine Albumin:Creatinine Ratio [facility] Start: 12-06-2025 Hepatitis B Vaccine (1 of 3 - 19+ 3-dose series) Hepatitis B Vaccine (1 of 3 - 19+ 3-dose series) [facility] Comment on above: Postponed from 2000 (Declined at t his time) Start: 12-06-2025 Pneumococcal vaccination Pneumococcal Vaccine (1 of 2 - PCV) [facility] Comment on above: Postponed from 2000 (Declined at t his time) Start: 08-15-2025 End: 08-15-2025 Patient encounter procedure 08/15/2025 10:20 AM EDT Office Visit [facility] [address] [place] [address] Garry Rodriguez APRN.[employer] OFFICIAL [address], [place] [id number] for Diabetes. [facility] Comment on above: for Diabetes. Start: 07-30-2025 Influenza vaccination [facility] Start: 07-16-2025 End: 07-16-2025 ambulatory 07/16/2025 10:45 AM EDT OT/PT/Speech Visit [facility] [address] [place] [address] Federico Ambriz PT left heel [facility] Comment on above: left heel Start: 07-15-2025 MRI of brain without contrast Brain without Contrast [facility] Start: 07-15-2025 Admission procedure [facility] Start: 07-15-2025 Hospital admission, emergency, from emergency room, medical nature [facility] Start: 07-15-2025 End: 07-15-2025 [facility] Start: 07-10-2025 Hemoglobin A1c measurement HbA1C [facility] Start: 06-27-2025 End: 06-27-2025 ambulatory 06/27/2025 8:15 AM EDT OT/PT/Speech Visit [facility] [address] [place] [address] Federico Ambriz, PT M79.672 (ICD-10-CM) - Pain of left heel [facility] Comment on above: M79.672 (ICD-10-CM) - Pain of left heel Start: 06-20-2025 End: 06-20-2025 ambulatory 06/20/2025 8:15 AM EDT OT/PT/Speech Visit [facility] [address] [place] [address] Federico Ambriz, PT M79.672 (ICD-10-CM) - Pain of left heel [facility] Comment on above: M79.672 (ICD-10-CM) - Pain of left heel Start: 06-13-2025 End: 06-13-2025 ambulatory 06/13/2025 8:15 AM EDT OT/PT/Speech Visit [facility] [address] [place] [address] Federico Ambriz, PT M79.672 (ICD-10-CM) - Pain of left heel [facility] Comment on above: M79.672 (ICD-10-CM) - Pain of left heel Start: 06-06-2025 End: 06-06-2025 ambulatory 06/06/2025 8:15 AM EDT OT/PT/Speech Visit [facility] [address] [place] [address] Federico Ambriz, PT M79.672 (ICD-10-CM) - Pain of left heel [facility] Comment on above: M79.672 (ICD-10-CM) - Pain of left heel Start: 05-30-2025 End: 05-30-2025 Patient encounter procedure 05/30/2025 11:00 AM EDT Office Visit [facility] [address] [place] [address] Garry Rodriguez APRN.[employer] OFF[employer]IAL [address] [place] [address] Follow up [facility] Comment on above: Follow up glucose Start: 05-30-2025 End: 05-30-2025 ambulatory 05/30/2025 8:15 AM EDT OT/PT/Speech Visit [facility] [address] [place] [address] Federico Ambriz, PT M79.672 (ICD-10-CM) - Pain of left heel [facility] Comment on above: M79.672 (ICD-10-CM) - Pain of left heel Start: 05-28-2025 Influenza vaccination Influenza Vaccine (#1) [facility] Comment on above: Postponed from 07/30/2024 (Declined at t his time) Start: 05-07-2025 End: 05-07-2025 Patient encounter procedure 05/07/2025 3:45 PM EDT Office Visit Podiatry [address] [place] [address] Emilia Griffiths [address] [place] [address] 6 week follow up heel pain Podiatry Comment on above: 6 week follow up heel pain Start: 05-02-2025 End: 05-02-2025 ambulatory 05/02/2025 10:30 AM EDT OT/PT/Speech Visit [facility] [address] [place] [address] Srini Glover, PT, DPT M79.672 (ICD-10-CM) - Pain of left heel [facility] Comment on above: M79.672 (ICD-10-CM) - Pain of left heel Start: 04-30-2025 End: 04-30-2025 Patient encounter procedure 04/30/2025 3:30 PM EDT Office Visit Podiatry [address] [place] [address] Emilia Griffiths [address] [place] [address] 6 week follow up heel pain Podiatry Comment on above: 6 week follow up heel pain Start: 04-25-2025 End: 04-25-2025 ambulatory 04/25/2025 8:00 AM EDT OT/PT/Speech Visit [facility] [address] [place] [address] Vidya Smith, TOY ASSEMBLER [address] [place] [address] M79.672 (ICD-10-CM) - Pain of left heel [facility] Comment on above: M79.672 (ICD-10-CM) - Pain of left heel Start: 04-11-2025 End: 04-11-2025 ambulatory 04/11/2025 11:15 AM EDT OT/PT/Speech Visit [facility] [address] [place] [address] Federico Ambriz PT Dx: Pain of left heel [M79.672]; Plantar fasciitis [M72.2] [facility] Comment on above: Dx: Pain of left heel [M79.672]; Plantar fasciitis [M72.2] Start: 04-01-2025 DTaP/Tdap/Td vaccine (3 - Td or Tdap) DTaP/Tdap/Td vaccine (3 - Td or Tdap) [facility] Start: 04-01-2025 DTaP/Tdap/Td vaccine (3 - Td) DTaP/Tdap/Td vaccine (3 - Td) [facility] Work Phone: Start: 04-01-2025 Urine microalbumin profile [facility] Start: 03-14-2025 End: 03-14-2025 Patient encounter procedure 03/14/2025 10:40 AM EDT Office Visit [facility] [address] [place] [address] Garry oRdriguez APRN.CHURCH OFFICIAL [address], [place] [id number] follow up for Diabetes. [facility] Comment on above: follow up for Diabetes. Start: 03-06-2025 Hemoglobin A1c measurement HbA1C [facility] Start: 01-12-2025 Annual PCP Team Chronic Disease Visit Annual PCP Team Chronic Disease Visit [facility] Start: 01-09-2025 End: 01-09-2025 Patient encounter procedure 01/09/2025 3:45 PM EST Office Visit Podiatry [address] [place] [address] Emilia Griffiths [address] [address] heel pain Podiatry Comment on above: heel pain Start: 12-25-2024 Glaucoma screening Dilated Retinal Exam [facility] Comment on above: Postponed from 12/22/2024 (Currently Josse eduled) Start: 12-22-2024 Glaucoma screening Dilated Retinal Exam [facility] Start: 12-12-2024 End: 12-12-2024 ambulatory 12/12/2024 3:45 PM EST OT/PT/Speech Visit [facility] [address] [place] [address] OJessica Eng, PT Pain in shoulder [facility] Comment on above: Pain in shoulder Start: 12-06-2024 End: 07-04-2025 CBC panel - Blood by Automated count COMPLETE BLOOD COUNT Lab Routine Type 2 diabetes mellitus with hyperglycemia, without long-term current use of insulin ([facility]) Expected: 12/06/2024, Expires: 07/04/2025 [facility] Comment on above: Expected: 12/06/2024, Expires: Start: 12-06-2024 End: 07-04-2025 Comprehensive metabolic 2000 panel - Serum or Plasma COMPREHENSIVE METABOLIC PANEL Lab Routine Type 2 diabetes mellitus with hyperglycemia, without long-term current use of insulin (HCC) Expected: 12/06/2024, Expires: 07/04/2025 [facility] Comment on above: Expected: 12/06/2024, Expires: Start: 12-06-2024 End: 07-04-2025 Lipid 1996 panel - Serum or Plasma LIPID PANEL BASIC Lab Routine Type 2 diabetes mellitus with hyperglycemia, without long-term current use of insulin (HCC) Expected: 12/06/2024, Expires: 07/04/2025 [facility] Work Phone: Comment on above: Expected: 12/06/2024, Expires: Start: 12-06-2024 End: 07-04-2025 Magnesium [Mass/volume] in Serum or Plasma MAGNESIUM Lab Routine Type 2 diabetes mellitus with hyperglycemia, without long-term current use of insulin (HCC) Expected: 12/06/2024, Expires: 07/04/2025 [facility] Comment on above: Expected: 12/06/2024, Expires: Start: 12-06-2024 End: 07-04-2025 Phosphate [Mass/volume] in Serum or Plasma PHOSPHORUS INORGANIC Lab Routine Type 2 diabetes mellitus with hyperglycemia, without long-term current use of insulin (HCC) Expected: 12/06/2024, Expires: 07/04/2025 [facility] Comment on above: Expected: 12/06/2024, Expires: Start: 12-06-2024 End: 12-06-2024 Patient encounter procedure 12/06/2024 1:20 PM EST Office Visit [facility] [address] [place] [address] Garry Rodriguez APRN.[employer] OFFICIAL [address] [place] [address] [facility] Comment on above: [facility] Start: 11-28-2024 Behavioral Health Screening Behavioral Health Screening [facility] Comment on above: Postponed from 11/29/2023 (Declined at t his time) Start: 11-28-2024 Depression Assessment Depression Assessment [facility] Comment on above: Postponed from 11/29/2023 (Declined at t his time) Start: 11-07-2024 Cervical cancer screen Cervical cancer screen [employer] [employer] Phone: Start: 08-20-2024 Annual PCP Team Chronic Disease Visit Annual PCP Team Chronic Disease Visit [facility] Start: 07-30-2024 Covid-19 Vaccine () Covid-19 Vaccine () [facility] Start: 07-30-2024 Influenza vaccination [facility] Start: 04-11-2024 Hemoglobin A1c measurement HbA1C [facility] Start: 03-23-2024 3 comp foot exam completed DIABETIC FOOT EXAM [facility] Start: 03-23-2024 ANNUAL PCP TEAM CHRONIC DISEASE VISIT ANNUAL PCP TEAM CHRONIC DISEASE VISIT [facility] Start: 03-23-2024 COVID-19 VACCINE (#1) COVID-19 VACCINE (#1) [facility] Comment on above: Postponed from 1981 (Declined at t his time) Start: 03-23-2024 Diabetic foot examination Diabetic Foot Exam [facility] Start: 02-24-2024 Mammography [facility] Start: 02-24-2024 Screening for malignant neoplasm of breast Mammogram Screening [facility] Start: 02-20-2024 Hepatitis B surface antibody level LDL CHOLESTEROL [facility] Start: 02-18-2024 ANNUAL PCP TEAM CHRONIC DISEASE VISIT ANNUAL PCP TEAM CHRONIC DISEASE VISIT [facility] Start: 12-13-2023 Screening for malignant neoplasm of cervix [facility] Start: 11-29-2023 Depression Assessment Depression Assessment [facility] Start: 11-19-2023 Hemoglobin A1c measurement HbA1C [facility] Start: 11-19-2023 Hemoglobin A1c/Hemoglobin.total in Blood HbA1C [facility] Start: 10-09-2023 End: 12-09-2023 Hepatic function 2000 panel - Serum or Plasma HEPATIC FUNCTION PNL Lab Routine Hyperlipidemia, unspecified hyperlipidemia type Expected: 10/09/2023, Expires: 12/09/2023 [facility] Work Phone: Comment on above: Expected: 10/09/2023, Expires: Start: 08-12-2023 Patient referral [facility] Work Phone: Start: 08-12-2023 Notification of physician [facility] Start: 08-12-2023 Patient discharge [facility] Start: 08-12-2023 Provision of activity privileges [facility] Start: 08-12-2023 Pulse taking [facility] Start: 08-12-2023 Scheduling [facility] Start: 08-12-2023 Taking patient vital signs [facility] Start: 08-12-2023 [facility] Start: 08-12-2023 Catheterization of vein [facility] Start: 08-12-[address] [facility] Start: 08-12-2023 Notification of physician [facility] Start: 08-12-2023 [facility] Start: 08-11-2023 End: 08-12-2023 [facility] Start: 08-11-2023 Following clinical pathway protocol [facility] Start: 08-11-2023 Ambulation without limitation [facility] Start: 08-11-2023 Assessment of risk of venous thromboembolism [facility] Start: 08-11-2023 Care regimes management [facility] Start: 08-11-2023 Insertion of catheter into peripheral vein [facility] Start: 08-11-[address] intake and output [facility] Start: 08-11-2023 Notification of physician [facility] Start: 08-11-2023 Oxygen therapy [facility] Start: 08-11-2023 Providing care according to standard [facility] Start: 08-11-2023 Referral to [facility] Start: 08-11-2023 Tobacco use cessation education [facility] Start: 08-11-2023 Electrocardiographic procedure [facility] Start: 08-11-2023 Verification routine [facility] Start: 08-11-2023 Admission procedure [facility] Start: 07-30-2023 Covid-19 Vaccine ( season) Covid-19 Vaccine ( season) [facility] Start: 07-30-2023 Influenza vaccination [facility] Start: 07-15-2023 End: 09-14-2023 Basic metabolic 2000 panel - Serum or Plasma BASIC METABOLIC PNL Lab Routine Dilated cardiomyopathy (HCC) Expected: 07/15/2023, Expires: 09/14/2023 [facility] Work Phone: Comment on above: Expected: 07/15/2023, Expires: Start: 04-29-2023 Hemoglobin A1c/Hemoglobin.total in Blood HBA1C [facility] Start: 02-17-2023 End: 09-15-2023 CBC panel - Blood by Automated count CBC Lab Routine Type 2 diabetes mellitus with hyperglycemia, with long-term current use of insulin (HCC) Primary hypertension Expected: 02/17/2023, Expires: 09/15/2023 [facility] Work Phone: Comment on above: Expected: 02/17/2023, Expires: 3 Start: 02-17-2023 End: 09-15-2023 Comprehensive metabolic 2000 panel - Serum or Plasma COMP METABOLIC PANEL Lab Routine Type 2 diabetes mellitus with hyperglycemia, with long-term current use of insulin (HCC) Primary hypertension Expected: 02/17/2023, Expires: 09/15/2023 [facility] Work Phone: Comment on above: Expected: 02/17/2023, Expires: 3 Start: 02-17-2023 End: 09-15-2023 Lipid 1996 panel - Serum or Plasma LIPID PANEL BASIC Lab Routine Type 2 diabetes mellitus with hyperglycemia, with long-term current use of insulin (HCC) Primary hypertension Expected: 02/17/2023, Expires: 09/15/2023 [facility] Work Phone: Comment on above: Expected: 02/17/2023, Expires: 3 Start: 02-17-2023 End: 09-15-2023 Thyrotropin [Units/volume] in Serum or Plasma TSH BLD Lab Routine Type 2 diabetes mellitus with hyperglycemia, with long-term current use of insulin (HCC) Primary hypertension Expected: 02/17/2023, Expires: 09/15/2023 [facility] Work Phone: Comment on above: Expected: 02/17/2023, Expires: 3 Start: 11-29-2022 DEPRESSION ASSESSMENT DEPRESSION ASSESSMENT [facility] Start: 08-19-2022 Hepatitis B screening URINE ALBUMIN:CREATININE RATIO [facility] Start: 08-19-2022 Urine screening for protein Diabetic microalbuminuria test [facility] Start: 07-30-2022 Influenza vaccination [facility] Start: 07-15-2022 Diabetic retinal exam Diabetic retinal exam [facility] Start: 12-13-2021 Depression Screen Depression Screen [facility] Start: 11-19-2021 Creatinine measurement Creatinine monitoring [facility] Start: 11-19-2021 Diabetic foot examination Diabetic foot exam [facility] Start: 11-19-2021 Lipid panel [facility] Start: 11-19-2021 Potassium monitoring Potassium monitoring [facility] Start: 11-18-2021 Hemoglobin A1c measurement A1C test (Diabetic or Prediabetic) [facility] Start: 07-30-2021 Influenza vaccination Flu vaccine (#1) [facility] Start: 05-09-2021 End: 05-09-2021 Office Visit 05/09/2021 Office Visit Cardiology Sadiq Charles DO [address] [place] [address] [phone] [facility] Start: 2021 Mammography MAMMOGRAM [facility] Start: 02-17-2021 HbA1c (Bld) [Mass fraction] A1C test (Diabetic or Prediabetic) [place], [place] Start: 12-31-2020 End: 12-31-2020 Office Visit 12/31/2020 Office Visit Endocrinology Víctor Parada, JONO [address] [address] [phone] [facility] Start: 10-12-2020 Influenza vaccination Flu vaccine (#1) [facility] [employer] Phone: Comment on above: Postponed from 07/30/2019 (Patient Refus ed) Start: 07-30-2020 Influenza vaccination Flu vaccine (#1) [place] Start: 06-15-2020 Diabetic retinal exam Diabetic retinal exam [facility] [employer] Phone: Start: 06-14-2020 End: 06-14-2020 Office Visit 06/14/2020 Office Visit Cardiology Sadiq Charles DO [address] [place] [address] [phone] [facility] Start: 05-23-2020 Hepatitis B vaccine (1 of 3 - Risk 3-dose series) Hepatitis B vaccine (1 of 3 - Risk 3-dose series) [facility] Comment on above: Postponed from 2000 (Patient Refus ed) Start: 05-23-2020 Pneumococcal 0-64 years Vaccine (1 of 1 - PPSV23) Pneumococcal 0-64 years Vaccine (1 of 1 - PPSV23) [employer] Phone: Comment on above: Postponed from 1987 (Patient Refus ed) Start: 01-23-2020 End: 01-23-2020 Office Visit 01/23/2020 Office Visit Family Medicine Ama Vaughn PA-C [address] [place] [address] [phone] [facility] Start: 01-16-2020 End: 01-16-2020 Appointment 01/16/2020 Appointment Physical Therapy [facility] Start: 01-12-2020 A1C test (Diabetic or Prediabetic) A1C test (Diabetic or Prediabetic) [employer] Phone: Start: 01-09-2020 End: 01-09-2020 Office Visit [facility] Start: 01-02-2020 End: 01-02-2020 [facility] Start: 12-26-2019 End: 12-26-2019 Patient encounter procedure 12/26/2019 Appointment Physical Therapy Shasta Coe, PT [facility] Start: 12-19-2019 End: 12-19-2019 Patient encounter procedure 12/19/2019 Appointment Physical Therapy Shasta Coe, PT [facility] Start: 12-12-2019 End: 12-12-2019 Patient encounter procedure 12/12/2019 Appointment Physical Therapy [facility] Coe[facility] Start: 12-05-2019 End: 12-05-2019 Patient encounter procedure 12/05/2019 Appointment Physical Therapy [facility] Start: 01-12-2019 Creatinine monitoring Creatinine monitoring [employer] [facility] Phone: Start: 01-12-2019 Diabetic microalbuminuria test Diabetic microalbuminuria test [employer] Phone: Start: 01-12-2019 Lipid screen Lipid screen [employer] Phone: Start: 01-12-2019 Potassium monitoring Potassium monitoring [employer] Phone: Start: 07-13-2018 [object Object] Diabetic foot exam [employer] [facility] Phone: Start: 2011 HPV TESTING HPV TESTING [facility] Start: 2011 Screening for malignant neoplasm of cervix HPV Testing [facility] Start: 2000 Hepatitis B Vaccine (1 of 3 - 19+ 3-dose series) Hepatitis B Vaccine (1 of 3 - 19+ 3-dose series) [facility] Start: 2000 Hepatitis B vaccine (1 of 3 - Risk 3-dose series) Hepatitis B vaccine (1 of 3 - Risk 3-dose series) [facility] Start: 2000 Pneumococcal vaccination Pneumococcal Vaccine (1 of 2 - PCV) [facility] Start: 1999 Anxiety Screening Anxiety Screening [facility] Start: 1999 BP Controlled (<130/80) BP Controlled (<130/80) [facility] Start: 1999 Depression Screening Depression Screening [facility] Start: 1999 Hepatitis B surface antibody level LDL CHOLESTEROL [facility] Start: 1999 Hepatitis C screening [facility] Start: 1999 HEPATITIS C SCREENING HEPATITIS C SCREENING [facility] Start: 1999 HIV SCREENING HIV SCREENING [facility] Start: 1999 HIV screening HIV Screening [facility] Start: 1993 Depression Screen Depression Screen [facility] Start: 1991 3 comp foot exam completed DIABETIC FOOT EXAM [facility] Start: 1991 Hepatitis C antibody, confirmatory test DILATED RETINAL EXAM [facility] Start: 1987 PNEUMOCOCCAL (1 - PCV) PNEUMOCOCCAL (1 - PCV) [facility] Start: 1987 Pneumococcal 0-64 years Vaccine (1 - PCV) Pneumococcal 0-64 years Vaccine (1 - PCV) [facility] Start: 1987 Pneumococcal 0-64 years Vaccine (1 of 1 - PPSV23) Pneumococcal 0-64 years Vaccine (1 of 1 - PPSV23) [facility] [place] Start: 1987 Pneumococcal 0-64 years Vaccine (1 of 2 - PPSV23) Pneumococcal 0-64 years Vaccine (1 of 2 - PPSV23) [facility] Start: 1987 Pneumococcal vaccination [facility] Start: 1986 COVID-19 Vaccine (1) COVID-19 Vaccine (1) [facility] Start: 1981 COVID-19 Vaccine (#1) COVID-19 Vaccine (#1) [facility] Start: 1981 HEPATITIS B (1 of 3 - 3-dose series) HEPATITIS B (1 of 3 - 3-dose series) [facility] Start: 1981 Hepatitis B Vaccine (1 of 3 - 3-dose series) Hepatitis B Vaccine (1 of 3 - 3-dose series) [facility] Start: 1980 Hepatitis C screening Hepatitis C screen [facility] ALBUMIN/CREAT RATIO RND UR ALBUM IN/CREAT RATIO RND UR Lab Routine Type 2 diabetes mellitus with hyperglycemia, with long-term current use of insulin (HCC) Ordered: 02/17/2023 [facility] Work Phone: Comment on above: Ordered: 02/17/2023 Amphetamines [Presen ce] in Urine by Screen method >1000 ng/mL [facility] Benzodiazepine measu rement, urine [facility] Cocaine measurement, urine [facility] End: 10-15-2024 Ct abdomen & pelvis w/contrast material CT ABD/PEL W IVCON Radiology Routine Intra-abdominal and pelvic swelling, mass and lump, unspecified site 1 Occurrences starting 09/16/2023 until 10/15/2024 [facility] Work Phone: Comment on above: 1 Occurrences starting 09/16/2023 until 10/15/2024 End: 11-08-2025 CT Chest WO contrast CT CHEST WO IVCON Radiology Routine Lung nodule 1 Occurrences starting 10/09/2024 until 11/08/2025 [facility] Work Phone: Comment on above: 1 Occurrences starting 10/09/2024 until 11/08/2025 CT Chest WO contrast CT CHEST WO IVCON Radiology Routine Lung nodule 11/16/2024 3:49 PM EST [facility] Work Phone: End: 01-05-2026 DBT Breast - bilateral screening EB SCREENING [place] Radiology Routine Encounter for screening mammogram for breast cancer 1 Occurrences starting 12/06/2024 until 01/05/2026 [facility] Comment on above: 1 Occurrences starting 12/06/2024 until 01/05/2026 End: 05-09-2026 DBT Breast - bilateral screening EB SCREENING [place] Radiology Routine Encounter for screening mammogram for breast cancer 1 Occurrences starting 04/09/2025 until 05/09/2026 [facility] Work Phone: Comment on above: 1 Occurrences starting 04/09/2025 until 05/09/2026 End: 05-05-2024 Echocardiography ECHO Cardiology Routine cardiomyopathy, Hyperlipidemia, unspecified hyperlipidemia type 1 Occurrences starting 05/05/2023 until 05/05/2024 [facility] Work Phone: Comment on above: 1 Occurrences starting 05/05/2023 until 05/05/2024 fentaNYL [Presence] in Urine by Screen method [facility] Hemoglobin A1c/Hemoglobin.total in Blood HEMOGLOBIN A1C (POC) Lab Routine Type 2 diabetes mellitus without complication, without long-term current use of insulin (HCC) Ordered: 01/12/2024 [facility] Work Phone: Comment on above: Ordered: 01/12/2024 End: 03-26-2024 EB DIAGNOSTIC LEFT EB DIAGNOSTIC LEFT Radiology Routine Abnormal mammogram 1 Occurrences starting 02/25/2023 until 03/26/2024 [facility] Work Phone: Comment on above: 1 Occurrences starting 02/25/2023 until 03/26/2024 End: 03-18-2024 EB SCREENING EB SCREENING Radiology Routine Encounter for screening mammogram for malignant neoplasm of breast 1 Occurrences starting 02/17/2023 until 03/18/2024 [facility] Work Phone: Comment on above: 1 Occurrences starting 02/17/2023 until 03/18/2024 Methadone measuremen t, urine [facility] End: 02-10-2025 MG Breast Screening EB SCREENING Radiology Routine Encounter for screening mammogram for breast cancer 1 Occurrences starting 01/12/2024 until 02/10/2025 [facility] Work Phone: Comment on above: 1 Occurrences starting 01/12/2024 until 02/10/2025 End: 11-04-2024 Mri abdomen w/o & w/contrast material MRI LIVER WO/W IVCON Radiology Routine Liver lesion 1 Occurrences starting 10/06/2023 until 11/04/2024 [facility] Work Phone: Comment on above: 1 Occurrences starting 10/06/2023 until 11/04/2024 Patient referral [facility] Work Phone: Phencyclidine [Prese nce] in Urine [facility] Urine cannabinoid measurement [facility] Urine opiate measurement [facility] End: 10-12-2024 US ABDOMEN COMPLETE US ABDOMEN COMPLETE Radiology Routine Other ascites 1 Occurrences starting 09/13/2023 until 10/12/2024 [facility] Work Phone: Comment on above: 1 Occurrences starting 09/13/2023 until 10/12/2024 End: 03-26-2024 US BREAST LTD LEFT US BREAST LTD LEFT Radiology Routine Abnormal mammogram 1 Occurrences starting 02/25/2023 until 03/26/2024 [facility] Work Phone: Comment on above: 1 Occurrences starting 02/25/2023 until 03/26/2024 XR Foot - left AP an d Lateral and oblique XR FOOT GENERAL 3V AP/LAT/OBL LEFT Radiology Routine Pain of left heel Nodule of skin of left foot 12/06/2024 2:09 PM EST [facility] Work Phone: End: 03-18-2024 XR SHOULDER GENERAL 3V OR MORE AP/TRUE AP/OTHER RIGHT XR SHOULDER GENERAL 3V OR MORE AP/TRUE AP/OTHER RIGHT Radiology Routine Chronic right shoulder pain 1 Occurrences starting 02/17/2023 until 03/18/2024 [facility] Work Phone: Comment on above: 1 Occurrences starting 02/17/2023 until 03/18/2024 [facility] Immunizations Immunization Date Immunization Notes Care Provider Celia arredondo 04-01-2015 tetanus toxoid, redu candida diphtheria toxoid, and acellular pertussis vaccine, adsorbed Garry Rodriguez APRN.[facility] Work Phone: [facility] 11-30-2014 tetanus toxoid, redu candida diphtheria toxoid, and acellular pertussis vaccine, adsorbed Sonia Castellano PT [facility] Work Phone: Payers Date Payer Category Payer Unknown 2024 Self-pay 2022 Medicaid [id number] 2022 Unknown [id number] 2014 Unknown [id number] 2014 Unknown ERIBERTO MCCARTHY [facility] MEDICAID xxxxxxxxxxx 2014-Present [phone] CLAIMS DEPARTMENT [address] [place] [address] xxxxxxxxxxx [id number] 1980 Unknown [id number] 1980 Unknown [id number] 1981 Unknown [id number] [id number]. 1981 Unknown [id number] 2..[id number] 1981 Unknown [id number] 1981 Unknown [id number] [id number] 1981 Unknown [id number] [id number] 1981 Unknown [id number] [id number] 1981 Unknown [id number] [id number] Unknown [id number] [id number] Unknown [id number] [id number] Unknown [id number] Social History Date Type Detail Facility Start: 11-07-2019 End: 07-15-2025 Tobacco smoking status NMIS Never smoker [employer] [employer] Phone: Start: 11-07-2019 End: 07-10-2022 Alcohol intake Current non-drinker of alcohol (finding) [employer] Phone: Start: 1980 Sex Assigned At Not on file [facility] Phone: Start: 12-13-2020 End: 12-06-2024 Tobacco use and exposure Never used [facility] [place] Start: 06-30-2022 End: 07-10-2022 Exposure to SARS-CoV-2 (event) Not sure [facility] [place] Start: 08-11-2023 End: 09-09-2023 Tobacco smoking consumption unknown [facility] Start: 01-22-2021 History SDOH Financial 5 [employer] Phone: Start: 01-22-2021 History SDOH Food Worry 1 [employer] Phone: Start: 01-22-2021 History SDOH Transpo rt Med 2 [employer] Phone: Start: 02-17-2023 End: 04-30-2025 Alcohol intake Current drinker of alcohol (finding) [facility] Start: 02-17-2023 Alcohol Comment social [facility] Start: 05-05-2023 End: 06-25-2023 History of Social function [facility] Work Phone: Start: 05-05-2023 End: 06-25-2023 Tobacco use panel [facility] Work Phone: Adult Depression Screening Assessment 0 [facility] Work Phone: Start: 1980 Sex Assigned At Female [facility] Sexual Orientation [facility] Sex Female (finding) [facility] NEGATED: Highlighted row [facility] Medical Equipment Procedure Code Equipment Code Equipment Origin al Text Equipment Identifier Dates [id number] Start: 12-10-2018 End: 02-17-2024 Comment on above: 1 Strip once daily. Use as instructed 1 Each once daily. U se as instructed. Preferred insurance brand. Patient checks sugar s twice daily DX E11.65 USE TO TEST BLOO D SUGAR 4 TIMES A DAYDX - DIABETES MELLITUS - 250.00 [id number] Start: 10-10-2019 by Does not appl y route. [id number] Start: 02-08-2013 Use bid [id number] Start: 03-08-2018 qid [id number] Start: 05-23-2019 USE TO TEST BLOO D SUGAR 4 TIMES A DAYDx - diabetes mellitus - 250.00 [id number] Start: 11-19-2020 qid [id number] Start: 12-05-2020 Patient checks sugars twice daily DX E11.65 [id number] Start: 02-25-2023 End: 12-04-2024 Patient checks sugars twice daily DX E11.65 [id number] Start: 02-25-2023 End: 12-04-2024 1 Strip once daily. Use as instructed [id number] Start: 02-17-2023 End: 02-25-2023 1 Each once pepe y. Use as instructed. Preferred insurance brand. [id number] Start: 02-17-2023 End: 02-25-2023 Patient checks sugars twice daily DX E11.65 [id number] Start: 12-05-2024 End: 06-08-2025 Patient checks sugars twice daily DX E11.65 [id number] Start: 12-05-2024 1 strip two time s a day. Patient checks sugars twice daily DX E11.65 [id number] Start: 06-08-2025 End: 06-08-2026 Goals Date Patient Goal Desired Activity /State Functional Status Date Assessment Result Facility 08-12-2023 Functional status Ambulates [facility] Work Phone: Mental Status Date Assessment Result Facility 07-15-2025 Cognitive function Voice/Name [facility] Work Phone: 08-12-2023 Cognitive function Voice/Name [facility] Work Phone: Clinical Notes 11-12-2011 to 07-15-2025 Telephone Encounter - Pilar Wallace MA - 06/26/2025 11:38 AM EDTTelephone Encounter - Pilar Wallace MA - 06/26/2025 11:38 AM EDT Note Date & Type Note Facility 07-15-2025 Discharge summary [facility] 07-15-2025 Radiology Diagnostic study note [facility] Imaging Services [address] [place] [address] [id number] CTA Head AND Neck W/ Contrast MR#: [id number] Acct: [id number] Name: PATT CRANE Rep #: [id number] : 1980 F 45 From: Amilcar Upton MD PCP: GEO IrahetaC Status: REG ER Study:CTA Head AND Neck W/ Contrast Date of E xam: 07/15/25 Exam# [id number] Ordering Dr: Andreia Le MD PROCEDURE: CTA [...] dilatation or dissecting intimal flaps. Reading Location: [place] [address] CC: CLERK OF COURT-C Garry Rodriguez; Dr. Fernando Le MD ~ Club Room Attendant: Signed [facility] 07-15-2025 Radiology Diagnostic study note [facility] Imaging Services [address] [place] [address]75 Brain/Head without Contrast MR#: [id number] Acct: [id number] Name: PATT CRANE Rep #: [id number] : 1980 F 45 From: Amilcar Upton MD PCP: Garry Rodriguez, CLERK OF COURT-C Status: REG ER Study:Brain/Head without Contrast Date of Exa m: 07/15/25 Exam# [id number] Ordering Dr: Andreia Le MD PROCEDURE: BRAIN/HEAD [...] CT study for the brain. Reading Location: [place] [address] CC: ODALYS Rodriguez; Dr. Fernando Le MD ~ Club Room Attendant: Signed [facility] 06-26-2025 Telephone encounter Note patient electronically requesting refills as follows: Last seen 04/09/25. Requested Prescriptions Pending Prescriptions Disp Refills lisinopril (ZESTRIL) 20 mg tablet 180 tablet Sig: Take 1 tablet by mouth two times a day. Please review and advise. Pilar Wallace MA [facility] 06-26-2025 Miscellaneous Notes patient electronically requesting refills as follows: Last seen 04/09/25. Requested Prescriptions Pending Prescriptions Disp Refills lisinopril (ZESTRIL) 20 mg tablet 180 tablet Sig: Take 1 tablet by mouth two times a day. Please review and advise. Pilar Wallace MA documented in this encounter [facility] 06-20-2025 Evaluation note Diagnosis Onset Date [...] (transient ischemic attack) acute July 15 3:59am [facility] Work Phone: 1(137) 552-487407-23-2025 Progress [facility] [address] [place], [place] [address] OFFICE VISIT Date of Service: 06/20/25 MR#: [id number] Acct: [id number] Name: PATT CRANE Rep #: [id number] : 1980 Provider: ODALYS Lynne Age/Sex: 45/F [place] [facility] [place] Status: Signed HPI HPI History [...] cuff Intake Visit Reasons: 6 M FU Publications Distribution Clerk Required: No Is patient in pain?: No [...] EC05/17/2024-sinus rhythm with right bundle branch block [place] [employer] Functional Class: 1 ACC/AHA stage: [...] as necessary. Follow Up: Keep as is ([employer]) Coding Level of Care Code Off vis,est,level [...] Ejection fraction %: 50 06/20/25 [address]-C> Date _ Keenan Lynne NP CLERK OF COURT-C [place] Signature: Date (if applicable) CC: GRANT-Liliane Rodriguez ~ [facility]07-23-2025 Progress note Author Keenan Lynne [facility] Note Date/Time June 20, 2025 8:44 am [facility] 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 Follow Up: Keep as is ([employer]) Coding Level of Care Code Off vis,est,level [...] Date (if applicable) CC: ODALYS Rodriguez ~ [facility] Work Phone: 1(353) 200-378007-03-2025 NoteHNO ID: [id number] Author: FEDERICO AMBRIZ PT Service: ? Author [...] T-score by a minimum 5 points. Improved [place] in home exercise program. Currently met Patient [...] Patient to be seen for Therapeutic exercise (06577), Neuromuscular re-education (20294), Therapeutic activities (76578), Manual therapy (95522), Self-long term management (07046), Gait Training (68964), Patient/Family/Caregiver Education, Body Mechanics Training PLAN FOR [...] TherapyTreatment Minutes: 15 Skilled (more content not included)...[facility]07-03-20[facility] History of Present illness Narrative* [...] T-score by a minimum 5 points. Improved [place] in home exercise program. Currently met Patient [...] Patient to be seen for Therapeutic exercise (98336), Neuromuscular re-education (62900), Therapeutic activities (23372), Manual therapy (40336), Self-long term management (74572), Gait Training (11162), Patient/Family/Caregiver Education, Body Mechanics Training PLAN FOR [...] Ambriz PT - 05/30/2025 8:48 AM EDT Program_ID:[id number] Access Code: [email or web address] URL: [email or web address] Date: 05-30-2025 Prepared By: Federico Ambriz Program [...] sets - 10 reps documented in [facility] encounterMedina [facility]06-[facility]-2025 NoteHNO ID: [id number] Author: EMILIA GRIFFITHS, ? Service: ? 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 - Employer is [...] anemia 09/05/2012 NSTEMI (non-ST elevated myocardial infarction) ([facility]) 07/2023 Current Outpatient Medications Medication [...] using boot as symptoms improve Recording using Udacity software for draft documentation of the visit was discussed with the patient/authorized enrollment eligibility representative; all questions welcomed and answered. 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 - Employer is [...] anemia 09/05/2012 NSTEMI (non-ST elevated myocardial infarction) ([facility]) 07/2023 Current Outpatient Medications Medication [...] using boot as symptoms improve Recording using Udacity software for draft documentation of the visit was discussed with the patient/authorized enrollment eligibility representative; all questions welcomed and answered. Patient/authorized enrollment eligibility representative agreed to proceed Emilia Griffiths DPM [...] long time. EBENEZER 03/26/25 documented in [facility]06-[facility] Instructions* Patient Instructions* Emilia Griffiths - [...] time on their feet, such as nurses, waiter/waitress room service/waiters, andmail carriers, often experience plantar fasciitis. Athletes [...] choose the one that fits the best. [place] with your athletic shoes to find a [...] and repeat the exercise. documented in this encounterMedina Hospital06-02-2025 NoteHNO ID: [id number] Author: PIPER WILLIAMSON, RN Service: ? Author [...] to be out walking a long time. [facility] 03/26/25[facility]05-14-2025 NoteHNO ID: [id number] Author: FEDERICO AMBRIZ, PT Service: ? Author [...] increase T-score by a minimum 5 points. [place] in home exercise program. Patient will decrease [...] Planned: 6 Planned Treatment Interventions: Therapeutic exercise (17835), Neuromuscular re-education (74762), Manual therapy (31954), Therapeutic activities (08076), Self-long term management (80732), Gait Training (77562), Patient/Family/Caregiver Education, Body Mechanics Training PLAN FOR [...] Demonstration TREATMENT: PT Treatme (more content not included)...[facility]05-14-2025 History of Present illness Narrative* [...] demands . The patient will benefit from [facility] therapy services to meet the goals established for this plan of care as noted below. Goals for Episode of Care: established 04/11/25 Patient reported outcome of self-efficacy will increase T-score by a minimum 5 points. [place] in home exercise program. Patient will decrease [...] Planned: 6 Planned Treatment Interventions: Therapeutic exercise (03764), Neuromuscular re- education (50966), Manual therapy (05491), Therapeutic activities (39156), Self- long term management (13149), Gait Training (24718), Patient/Family/Caregiver Education, Body Mechanics Training PLAN FOR [...] Ambriz PT - 04/11/2025 11:45 AM EDT Program_ID:[id number] Access Code: [email or web address] URL: [email or web address] Date: 04-11-2025 Prepared By: Federico Ambriz Program [...] sets - 20 reps documented in this encounterMedina Hospital05-13-2025 Telephone encounter Note * Telephone Encounter - Akshat Quesada MA - 04/10/2025 9:02 AM EDT Faxed. Placed in immediate scanning. Akshat Quesada MA [facility]05-13-2025 Miscellaneous Notes* Telephone Encounter - Akshat [...] Dr Blanco's office? TY! documented in this encounterMedina Hospital05-13-2025 Telephone encounter Note * Telephone Encounter - Garry Rodriguez APRN.CNP - 04/10/2025 8:57 AM EDT Please process work forms thank you. Garry Rodriguez APRN.CNP [facility]05-13-2025 Telephone encounter Note* Telephone Encounter - [...] write it andsend it to her mychart. [facility]05-13-2025 Miscellaneous Notes* Telephone Encounter - Piper Williamosn RN - 04/10/2025 8:25 AM EDT Called [...] work. Josie Goyal LPN documented in this encounterMedina Hospital05-12-2025 NoteHNO ID: [id number] Author: GARRY RODRIGUEZ APRN.[employer] Service: ? Author Type: Nurse Practitioner Type: Progress Notes Filed: 04/09/2025 16:17 Note Text: Subjective The patient consented to the use of Udacity software for draft documentation of the visit consistent with [facility]?s Notice of Privacy Practices. CHICHO Beltre [...] issues. Patt's Jardiance is prescribed by her sliver former, Keenan JARVIS, due to her history of cardiomyopathy, CVA, and NSTEMI. Her most recent visit with cardiology was on December 13, 2024. She experienced an NSTEMI in July 2023, with a cardiac catheterization revealing no obstructive stenosis and an ejection fraction of 20%. The DC was likely secondary to demand ischemia from [...] and gait problem. Sk (more content not included)...[facility]05-12-2025 History of Present illness Narrative* Garry Rodriguez APRN.[employer] - 04/09/2025 3:48 PM EDT Subjective The patient consented to the use of [employer] software for draft documentation of the visit consistent with [facility] s Notice of Privacy Practices. CHICHO [...] issues. Patt's Jardiance is prescribed by her sliver former, Keenan JARVIS, due to her history of cardiomyopathy, CVA, and NSTEMI. Her most recent visit with cardiology was on December 13, 2024. She experienced an NSTEMI in July 2023, with a cardiac catheterization revealing no obstructive stenosis and an ejection fraction of 20%. The DC was likely secondary to demand ischemia from [...] Head: Normocephalic and atraumatic. Mouth/Throat: Lips: [place]. Eyes: General: Lids are normal. Extraocular Movements: [...] Continue current cardiac medications. - Follow-up with sliver former Dr. Blanco in May. 3. Essential (primary) hypertension (I10) Blood pressure today was elevated. Lisinopril was increased to 20 mg BID in November by sliver former. - Contact cardiology office to report current [...] mammogram. Garry Rodriguez APRN.[place] documented in this encounterMedina Hospital05-12-2025 Telephone encounter Note * Telephone Encounter [...] letter for her work. Josie Goyal LPN [facility]05-08-2025 Telephone encounter Note* Telephone Encounter - Garry Rodriguez APRN.CNP - 04/05/2025 8:33 PM EDT Can we please request last OV note from Dr Blanco's office? TY! [facility]05-08-2025 Telephone encounter Note* Telephone Encounter - Carmel Dennison MA - 04/05/2025 4:34 PM EDT Patient is informed Carmel Dennison MA [facility]05-08-2025 Miscellaneous Notes* Telephone Encounter - Carmel [...] herschedule. Garry Rodriguez APRN.CNP documented in this encounterMedina Hospital05-08-2025 Telephone encounter Note * Telephone Encounter - Carmel Dennison MA - 04/05/2025 4:33 PM EDT ----- Message from Garry Rodriguez APRN.[employer] sent at 04/04/2025 12:28 AM EDT ----- Labs are normal besides elevated glucose. She is due for diabetes visit in mid- March, please have herschedule. Garry Rodriguez APRN.[employer] [facility]04-30-2025 NoteHNO ID: [id number] Author: EMILIA GRIFFITHS, ? Service: ? Author [...] and 10.7% in July. Attestation Recording using Udacity software for draft documentation of the visit was discussed with the patient/authorized enrollment eligibility representative; all questions welcomed and answered. Patient/authorized enrollment eligibility representative agreed to proceed Emilia Griffiths [facility]04-30-2025 History of Present illness Narrative* Emilia Griffiths [...] and 10.7% in July. Attestation Recording using Udacity software for draft documentation of the visit was discussed with the patient/authorized enrollment eligibility representative; all questions welcomed and answered. Patient/authorized enrollment eligibility representative agreed to proceed Emilia Griffiths DPM [...] Numbness Kristyn Coffey LPN documented in this encounterMedina Hospital04-28-2025 Instructions* Patient Instructions* Emilia Griffiths - [...] time on their feet, such as nurses, waiter/waitress room service/waiters, andmail carriers, often experience plantar fasciitis. Athletes [...] choose the one that fits the best. [place] with your athletic shoes to find a [...] MRI may be considered. documented in this encounterMedina Hospital04-28-2025 NoteHNO ID: [id number] Author: KRISTYN COFFEY LPN Service: ? Author [...] Pain, Established Patient, Follow Up, Numbness [facility]-2025 NoteHNO ID: [id number] Author: KRISTYN COFFEY LPN Service: ? Author Type: LICENSED NURSE Type: Progress Notes Filed: 01/09/2025 15:58 Note Text: Per Dr. Griffiths, Patt was provided with powerstep gel inserts, size 9, and instructed/educated in its application, wear, and care. All questions were answered, and patient was able to demonstrate competence with the necessary skills to utilize the above equipment. 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) 07/2023 Current Outpatient Medications Medication [...] performed. Emilia Griffiths DPM Podiatry [address] [facility] [address] Dept: [phone] Dept * Kristyn Coffey LPN - 01/09/2025 3:33 PM EST AMB ROOMING INTAKE FLOWSHEET DATA Pain Pain Level: 10 Pain Location: Foot-Left Description: Stabbing, Throbbing Duration Amount of Time: 6 Duration Units: Months Frequency: Intermittent Intervention/Comfort measure: Reposition, Relaxation Patient presents with: Left Foot - New, Pain Kristyn Coffey LPN documented in this encounterMedina Hospital02-11-2025 Instructions* Patient Instructions* Emilia Griffiths - [...] time on their feet, such as nurses, waiter/waitress room service/waiters, andmail carriers, often experience plantar fasciitis. Athletes [...] choose the one that fits the best. [place] with your athletic shoes to find a [...] Powerstep Original Full length. Can purchase at [facility] Runner and boots,shoes and more here in [place], [employer] in [place] or [place]. Also can find in [place] in [facility]. Powersteps can also be purchased online, [...] everything fits well together documented in this encounterMedina Hospital02-11-2025 NoteHNO ID: [id number] Author: EMILIA GRIFFITHS, ? Service: ? Author [...] 01/12/2024 9.4 08/20/2023 10.7 PCP: Garry Rodriguez APRN.CHURCH OFFICIAL PAST MEDICAL HISTORY Diagnosis Date cardiomyopathy, 09/05/2012 [...] MPJ is full when (more content not included)...[facility] 01-09-2025 NoteHNO ID: [id number] Author: KRISTYN COFFEY LPN Service: ? Author Type: LICENSED NURSE Type: Progress Notes Filed: 01/09/2025 15:58 Note Text: AMB ROOMING INTAKE FLOWSHEET DATA Pain Pain Level: 10 Pain Location: Foot-Left Description: Stabbing, Throbbing Duration Amount of Time: 6 Duration Units: Months Frequency: Intermittent Intervention/Comfort measure: Reposition, Relaxation Patient presents with: Left Foot - New, Pain [facility] Telephone encounter Note* Telephone Encounter - Akshat Quesada MA - 12/12/2024 7:17 AM EST Received fax that ozempic was denied. Placed in red folder to review. Akshat Quesada MA [facility]01-14-2025 Miscellaneous Notes* Telephone Encounter - Akshat Quesada MA - 12/12/2024 7:17 AM EST Received fax that niya was denied. Placed in red folder to review. Akshat Quesada MA documented in this encounterMedina Hospital01-13-2025 Telephone encounter Note * Telephone Encounter - Carmel Dennison MA - 12/11/2024 8:41 AM EST Left message informing patient, phone number to reach the office was left for any questions or concerns. Carmel Dennison MA [facility]01-13-2025 Miscellaneous Notes* Telephone Encounter - Carmel Dennison MA - 12/11/2024 8:41 AM EST Left message informing patient, phone number to reach the office was left for any questions or concerns. Carmel Dennison MA * Telephone Encounter - Akshat Quesada MA - 12/11/2024 7:24 AM EST ----- Message from Garry Rodriguez APRN.CHURCH OFFICIAL sent at 12/10/2024 9:25 AM EST ----- Please notify patient results are normal. Thank you. Garry Rodriguez APRN.CNP documented in this encounterMedina Hospital01-13-2025 Telephone encounter Note * Telephone Encounter - Akshat Quesada MA - 12/11/2024 7:24 AM EST ----- Message from Garry Rodriguez APRN.CNP sent at 12/10/2024 9:25 AM EST ----- Please notify patient results are normal. Thank you. Garry Rodriguez APRN.CHURCH OFFICIAL [facility]01-09-2025 Telephone encounter Note* Telephone Encounter - Akshat Quesada MA - 12/07/2024 7:19 AM EST Received fax from [employer] stating caresource denied ozempic. Please advise. Akshat Quesada MA [facility]01-09-2025 Miscellaneous Notes* Telephone Encounter - Akshat Quesada MA - 12/07/2024 7:19 AM EST Received fax from [employer] stating caresource denied ozempic. Please advise. Akshat Quesada MA documented in this encounterMedina Hospital01-08-2025 NoteHNO ID: [id number] Author: GARRY RODRIGUEZ APRN.CHURCH OFFICIAL Service: ? Author Type: Nurse Practitioner Type: [...] screening - Dr Briones is her OBGYN [place] Colorectal cancer screening - na Osteoporosis screening [...] Jardiance for cardiomyopathy, she continues care with [facility] cardiology - Dr Blanco Has [...] anemia 09/05/2012 NSTEMI (non-ST elevated myocardial infarction) ([facility]) 07/2023 PAST SURGICAL HISTORY Procedure [...] Body: Right upper body (more content not included)...[facility] 12-06-2024 History of Present illness Narrative* Garry Rodriguez APRN.CHURCH OFFICIAL - 12/06/2024 1:16 PM EST Subjective Patt [...] screening - Dr Briones is her OBGYN [place] Colorectal cancer screening - na Osteoporosis screening [...] Jardiance for cardiomyopathy, she continues care with [facility] cardiology - Dr Blanco Has [...] anemia 09/05/2012 NSTEMI (non-ST elevated myocardial infarction) ([facility]) 07/2023 PAST SURGICAL HISTORY Procedure [...] up for mammogram, yearly mammogram recommended - [facility] SCREENING W LINDEN 6. History of cardiomyopathy - ICD9: V12.59, ICD10: Z86.79 - 2010 Continue care with cardiology Dr Francis On Jardiance - increase to 25 mg once a day 7. Screening for cervical cancer - ICD9: V76.2, ICD10: Z12.4 Patient would like new referral for FORENSIC SOCIAL WORKER - CONSULT TO [employer] UNLOADING 8. Pain of left heel - ICD9: [...] SCREENING Garry Rodriguez APRN.[place] documented in this encounterMedina Hospital01-06-2025 Telephone encounter Note * Telephone Encounter [...] Please review and advise. Akshat Quesada MA [facility]01-06-2025 Miscellaneous Notes* Telephone Encounter - Akshat [...] advise. Akshat Quesada MA documented in this encounterMedina Hospital12-19-2024 History of Present illness Narrative* Josie [...] PATIENT PRESENTS WITH AN IMPLANTABLE OR ATTACHED WEBMETHODS ARCHITECT: No RADIOLOGY DEPARTMENT: CT; Exam(s) Completed: Chest PERIPHERAL IV DATA: Not applicable SIGNED BY: RT Jaquan(R) November 16, 2024 3:50 PM documented in this encounterMedina Hospital12-19-2024 NoteHNO ID: [id number] Author: JOSIE PARISH RT(Andrew) Service: ? Author Type: Binder Roller Type: Progress Notes Filed: 11/16/2024 15:50 Note [...] PATIENT PRESENTS WITH AN IMPLANTABLE OR ATTACHED WEBMETHODS ARCHITECT: No RADIOLOGY DEPARTMENT: CT; Exam(s) Completed: Chest PERIPHERAL IV DATA: Not applicable SIGNED BY: RT Jaquan(R) November 16, 2024 3:50 [facility]11-11-2024 Telephone encounter Note* Telephone Encounter - Maraosman AkshatJOHN - 10/09/2024 2:35 PM EST Patient aware. Akshat JOHN Quesada [facility]11-11-2024 Miscellaneous Notes* Telephone Encounter - Maraosman [...] nodule. Pilar Wallace MA documented in this encounterMedina Hospital11-11-2024 Telephone encounter Note * Telephone Encounter - Garry Rodriguez APRN.CNP - 10/09/2024 2:22 PM EST Thank you. Please see orders. Garry Rodriguez APRN.CNP [facility]11-11-2024 Telephone encounter Note* Telephone Encounter - Carmel Dennison MA - 10/09/2024 7:42 AM EST ----- Message from Pilar Sultana MA sent at 10/07/2023 10:14 AM EST ----- Patient due for [address] chest to monitor small lung nodule. Pilar Wallace MA [facility]04-23-2024 Telephone encounter Note* Telephone Encounter - Garry Rodriguez APRN.CNP - 03/21/2024 5:04 PM EDT Thank you, we will continue Trulicity 3 mg once a week. Garry Rodriguez APRN.CNP [facility]04-23-2024 Miscellaneous Notes* Telephone Encounter - Garry [...] Trulicity to 4 mg? documented in this encounterMedina Hospital04-23-2024 Telephone encounter Note * Telephone Encounter - Akshat Quesada MA - 03/21/2024 3:14 PM EDT Patient states the dose she is taking now has made her sugar drop in the 70's. She got really dizzylast week. Took Trulicity dose yesterday and did not have this happen. She thinks she should keep the same dose . Please advise. Akshat Quesada MA [facility]04-22-2024 Telephone encounter Note* Telephone Encounter - Akshat Quesada MA - 03/20/2024 4:59 PM EDT Lm on pt. Vm to contact office and let us know. Akshat Quesada MA [facility]04-22-2024 Telephone encounter Note* Telephone Encounter - Garry Rodriguez APRN.CNP - 03/20/2024 4:54 PM EDT Please call patient and see how she's feeling on Trulicity. We can increase her dose as long as sheisn't feeling too nauseated or constipated. Garry Rodriguez APRN.CNP [facility]04-22-2024 Telephone encounter Note* Telephone Encounter - Garry Rodriguez APRN.CNP - 03/20/2024 4:53 PM EDT ----- Message from Garry Rodriguez APRN.CNP sent at 02/16/2024 5:30 PM EDT ----- Increase Trulicity to 4 mg? [facility]03-20[facility] Note ORIGINAL EXAMINATION: Ultrasound pelvis, 02/16/2024 [...] Sign Date: 02/16/2024 3:21:09 PM Ordering Provider: [facility]02-14-2024 Miscellaneous Notes* Telephone Encounter - Evelin Saunders - 01/12/2024 11:[address] ABD/PEL results faxed to Dr Gabriel. Faxed to [phone] documented in this encounterMedina Hospital02-14-2024 History of Present illness Narrative* Garry Rodriguez, SHIRLENE.CHURCH OFFICIAL - 01/12/2024 9:58 AM EST Subjective Patt [...] pelvic ascites She has been seeing a FORENSIC SOCIAL WORKER in [place]. Dr Kristyn Briones Gets pelvic pain, worse [...] of focal fatty infiltration which has resolved. Club Room Attendant: HODA Transcribe Date/Time: Dec 29 2023 3:43P Dictated by : REED BOBO MD This examination was interpreted and the report reviewed and electronically signed by: REED BOOB MD on Dec 29 2023 3:56PM EST [...] up for mammogram, yearly mammogram recommended - [facility] SCREENING 3. Chronic right shoulder pain - ICD9: 719.41, 338.29, ICD10: M25.511, G89.29 Referral placed for PT Had a course of meloxicam - no change X-ray was normal January 2023 - CONSULT TO PHYSICAL THERAPY 4. Fatty liver - ICD9: 571.8, ICD10: K76.0 Low fat diet, avoid NSAIDs Garry Rodriguez APRN.[place] documented in this encounterMedina Hospital02-12-2024 Miscellaneous Notes* Telephone Encounter - Nena Chirinos - 01/10/2024 8:13 AM EST The patient has been scheduled on 01/12/24 at 10:20 am. documented in this encounterMedina Hospital11-09-2023 Miscellaneous Notes* Telephone Encounter - Pilar Wallace MA - 10/07/2023 10:13 AM EST Patient informed of results, recommendations and additional imaging order. Patient states she has an appointment with a asset protection agent in [place] at the end of the month and [...] bleeding, bloating. I want her to see FORENSIC SOCIAL WORKER - does she already have one or does she need a referral? There was also a very small lung nodule - needs CT chest in 1 year, please add a reminder. Garry Rodriguez APRN.CNP documented in this encounterMedina Hospital11-08-2023 History of Present illness Narrative* Josie [...] 2023 TIME: 4:17 PM documented in this encounterMedina Hospital10-19-2023 Miscellaneous Notes* Telephone Encounter - Pilar [...] message stating she received a message from [facility] regarding following up with her pcp regarding her recent imaging results and an actionable finding. Please advise. Pilar Wallace MA documented in this encounterMedina Hospital10-18-2023 History of Present illness Narrative* [place]ia [...] 15, 2023 9:00 AM documented in this encounterMedina Hospital10-13-2023 Miscellaneous Notes* Telephone Encounter - Akshat Quesada MA - 09/10/2023 10:48 AM EDT Pt aware. Reminder placed. Akshat Quesada MA * Telephone Encounter - Akshta Quesada MA - 09/10/2023 8:27 AM EDT ----- Message from Garry Rodriguez APRN.CNP sent at 09/09/2023 10:58 PM EDT ----- Mildly elevated liver function, recheck in 3 months. Other labs WNL. Garry Rodriguez APRN.CNP documented in this encounterMedina Hospital10-11-2023 Miscellaneous Notes* Telephone Encounter - Iwona [...] Thanks, Tone Espino MD documented in this encounterMedina Hospital09-14-2023 Discharge summary Author Aj Colon [facility] August 12, 2023 3:58pm Note Date/Time August 12, 2023 3:57pm [facility] Medical Records Department [address] [place] [address] Discharge Summary 08/12/23 1549 MR#: [id number] Acct: [id number] Name: PATT CRANE Rep #:[id number] : 1980 43 From: Aj mina MD PCP: ODALYS Iraheta Status:ADM IN Location: [place] [address] Providers Date of Admission: 08/11/23 Primary Care [...] % (Auto) 63.5, Lymph % (Auto) 26.6, [place] % (Auto) 7.6, Eos % (Auto) 1.3, [...] Clarity Clear, Urine pH 6.0, Ur Specific Robinson 1.015, Urine Protein 30 H, Urine Glucose [...] (MDRD) Non-Af 72, BUN/Creatinine Ratio 7.7 L, [id number] H, Calcium 8.3 L, Triglycerides 99, Cholesterol 115, LDL Cholesterol 47, VLDL Cholesterol 20, HDL Cholesterol 48 08/12/23 12:36: POC Glucose 287 H Radiography Diagnostic Testing: Radiology Impression Chest X-Ray 08/11/23 18:20 IMPRESSION: No acute cardiopulmonary pathology Electronically Signed: Mateus Reynolds MD at 18:31 EDT Reading Location ID and State: [facility] / [place] Tel , Service support , Chest CTA [...] Self Care Charges/Coding Visit Charges Inpatient E&M: 39394 Disch Hosp >30min 08/12/23 1558 <Electronically signed by Aj Colon MD> Cosigner Signature (if applicable): CC: ODALYS Rodriguez; Dr. Aj Colon MD~ Signed [facility] Work Phone: [phone]) 186-167009-14-2023 Discharge summary Author Aj Colon [facility] August 12, 2023 3:49pm Note Date/Time August 12, 2023 3:49pm [facility] Medical Records Department [address] [place] [address] Instructions for Home/Discharge Instructions 08/12/23 1546 MR#: [id number] Acct: [id number] Name: PATT CRANE Rep #:[id number] : 1980 43 From: Aj mina MD [...] pm NOT,DEFINED [Non-Staff] - Garry Rodriguez NP CLERK OF COURT-C [Primary Care Provider] - Within 1 Week Disposition Disposition (needs filled in before D/C Order can be placed): Home, Self Care 08/12/23 1549<Electronically signed by Aj Colon MD>Aj Colon MD CC: CLERK OF COURT-C Garry Rodriguez; Dr. Damian Blanco MD; Dr. Ha Echevarria MD ~ Signed [facility] Work Phone: 1(132) 477-147509-14-2023 Evaluation note* Diagnosis Onset Date Resolution Status Elevated d-dimer acute Hypokalemia acute Lightheadedness acute Non-STEMI (non-ST elevated m yocardial infarction) August 12, 2023 acute Peripartum cardiomyopathy, a ntepartum condition or complication acute HTN (hypertension) [facility] Work Phone: [phone]) 458-889909-14-2023 Evaluation note* Diagnosis Onset Date Resolution Status Elevated d-dimer acute Hypokalemia acute Lightheadedness acute Non-STEMI (non-ST elevated m yocardial infarction) August 12, 2023 acute Peripartum cardiomyopathy, a ntepartum condition or complication acute HTN (hypertension) chronic Idiopathic cardiomyopathy August 12, 2023 acute Peripartum cardiomyopathy, a ntepartum condition or complication acute HTN (hypertension) [facility] Work Phone: [phone]) 770-152809-14-2023 Consult note Author [facility] August 12, 2023 8:41am Note Date/Time August 12, 2023 7:20am [facility] Medical Records Department [address] [place] [address] Consultation - Cardiology 08/12/23 0715 MR#: [id number] Acct: [id number] Name: PATT CRANE Rep #:[id number] : 1980 43 From: Damian Blanco MD PCP: ODALYS Iraheta Status:ADM IN Location: [place] [address] Assessment & Plan Assessment/Plan (1) Non-STEMI (non-ST [...] also noted to be elevated on admission. PENDING SALE TO [facility] Medical History (Updated 08/12/23 @ 07:18 [...] % (Auto) 63.5, Lymph % (Auto) 26.6, [place] % (Auto) 7.6, Eos % (Auto) 1.3, [...] Clarity Clear, Urine pH 6.0, Ur Specific Robinson 1.015, Urine Protein 30 H, Urine Glucose [...] % (Auto) 63.5, Lymph % (Auto) 26.6, [place] % (Auto) 7.6, Eos % (Auto) 1.3, [...] Clarity Clear, Urine pH 6.0, Ur Specific Robinson 1.015, Urine Protein 30 H, Urine Glucose [...] Location ID and State: [facility] / [place] Tel [phone], Service support , Chest CTA 08/11/23 18:45 IMPRESSION: Cardiomegaly and minor atelectasis within the dependent portion of the lungs with tiny right pleural effusion. No evidence for pulmonary embolus Electronically Signed: Mateus Reynolds MD at 19:27 EDT , 08/12/23 0841 <Electronically signed by Damian Blanco MD> Cosigner Signature (if applicable): CC: ODALYS Rodriguez; Dr. Damian Blanco MD; Dr. Ha Echevarria MD~ Signed [facility] Work Phone: [phone]) 947-163109-14-2023 History and physical note Author Ha Echevarria [facility] August 12, 2023 5:21am Note Date/Time August 11, 2023 8:10pm [facility] Medical Records Department [address] [place] [address] H&P Exam - Hospitalist 08/11/232009 MR#: [id number] Acct: [id number] Name: PATT CRANE Rep #:[id number] : 1980 43 From: Ha Echevraria MD PCP: ODALYS Iraheta Status:ADM IN Location: [place] [id number] HPI - General General Date of [...] of 60. Also her mother had CVA. PENDING SALE TO [facility] Medical History delivery delivered Diabetes HTN [...] % (Auto) 63.5, Lymph % (Auto) 26.6, [place] % (Auto) 7.6, Eos % (Auto) 1.3, [...] Clarity Clear, Urine pH 6.0, Ur Specific Robinson 1.015, Urine Protein 30 H, Urine Glucose [...] 19:27 EDT Reading Location ID and State: [facility] / [place] Tel , Service support , Assessment & [...] Patient with hyperglycemia on presentation On home [facility]. Continue correction scale insulin ordered. DVT prophylaxis Indicated as patient is on heparin drip. Time spent in the patient's overall evaluation,decision-making process, review of diagnostic data, adjustment of management, discussion with other providers, nursing and ancillary staff involved in patient's care documentation, 65 minutes. Charges/Coding Visit Charges Inpatient E&M: 84398 Init Hosp 08/12/23 0521 <Electronically signed by Ha Echevarria MD> Cosigner Signature (if applicable): CC: CLERK OF COURT-C Garry Rodriguez; Dr. Ha Echevarria MD~ Signed [facility] Work Phone: [phone]) 973-498509-14-2023 Discharge summary Author Placido Luchilojose miguel [facility] August 11, 2023 11:07pm Note Date/Time August 11, 2023 5:42pm [facility] Medical Records Department [address] [place] [address] Emergency Department Summary 08/11/23 MR#: [id number] Acct: [id number] Name: PATT CRANE Rep #:[id number] : 1980 43 From: Placido Pena MD PCP: ODALYS Iraheta Status:ADM IN Location: [place] [address] HPI History of Present Illness Chief Complaint: [...] it was elevated in the 140 systolic. [facility] Medical History delivery delivered Diabetes HTN [...] % (Auto) 63.5 Lymph % (Auto) 26.6 [place] % (Auto) 7.6 Eos % (Auto) 1.3 [...] Clarity Clear Urine pH 6.0 Ur Specific Robinson 1.015 Urine Protein 30 H Urine Glucose [...] Location ID and State: [facility] / [place] Tel [phone], Service support , Chest CTA 08/11/23 18:45 IMPRESSION: Cardiomegaly and minor atelectasis within the dependent portion of the lungs with tiny right pleural effusion. No evidence for pulmonary embolus Electronically Signed: Mateus Reynolds MD at 19:27 EDT , Discharge Plan Dx/Rx/DC Orders Clinical Impression: Lightheadedness, Non-STEMI (non-ST elevated myocardial infarction), Elevated d- dimer, Hypokalemia Disposition Disposition: Acute Care Hospital [facility] Discharge Date/Time: 08/11/23 21:07 What to do if you have Problems For any increased pain, shortness of breath, bleeding, nausea or vomiting, chestpain, or any unexpected problems, contact your Primary Care Provider. Call [facility] ([phone]) or report to the closest Emergency Room. Call 911 if necessary. 08/11/232306 <Electronically signed by Placido Pena MD> Cosigner Signature (if applicable): CC: ODALYS Rodriguez ~ Signed [facility] Work Phone: [phone]) 141-199609-13-2023 History of Present illness Narrative* Lauren Cotto [...] to take her self. documented in this encounterMedina Hospital08-07-2023 Miscellaneous Notes* Telephone Encounter - Sara [...] left for patient to return call to [facility] to review test results. Office phone number provided. Iwona Gee LPN * Telephone Encounter - Iwona Gee LPN - 07/02/2023 8:16 AM EDT Voicemail msg left for patient to return call to [facility] to review test results. Office phone number [...] Thanks, Tone Espino MD documented in this encounterMedina Hospital06-07-2023 History of Present illness Narrative* Tone Espino MD - 05/05/2023 1:47 PM EDT PRIMARY CARE PHYSICIAN: Garry Rordiguez [address] [place] [address] REFERRING PHYSICIAN: Garry Rodriguez [address] [place] [address] CHIEF COMPLAINT: History of peripartum cardiomyopathy HISTORY [...] to 3 years ago at [facility]. 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 documented in this encounterMedina Hospital06-07-2023 Instructions* Patient Instructions* Tone Espino MD - 05/05/2023 1:45 PM EDT Echocardiogram for further evaluation documented in this encounterMedina Hospital06-07-2023 Nurse Note* Iwona Gee LPN - 05/05/2023 1:08 PM EDT Patient denies any cardiac complaints or symptoms. Iwona Gee LPN documented in this encounterMedina Hospital04-25-2023 Miscellaneous Notes* Telephone Encounter - Akshat Quesada MA - 03/23/2023 4:03 PM EDT Prior auth on ozempic done again through cover my meds. Muñoz code [id number] . Akshat Quesada MA documented in this encounterMedina Hospital04-25-2023 Instructions* Patient Instructions* Garry Rodriguez APRN.[place] - 03/23/2023 10:53 AM EDT Self-titrate Lantus insulin Increase Lantus by 4 units every week until fasting blood sugars are around 130 documented in this encounterMedina Hospital04-25-2023 History of Present illness Narrative* Garry Rodriguez APRN.[place] - 03/23/2023 10:49 AM EDT This note was created using Yorderriter. Subjective Patt Crane is a 42 year [...] normal. Nose: Nose normal. Mouth/Throat: Lips: [place]. Mouth: Mucous membranes are moist. Pharynx: Oropharynx [...] SCREENING/ASSESSMENT Garry Rodriguez APRN.[place] documented in this encounterMedina Hospital03-30-2023 Miscellaneous Notes* Telephone Encounter - Carmel Dennison MA - 02/25/2023 12:02 PM EDT Sent a [employer] message informing patient of results. Carmel Dennison [...] pain. Garry Rodriguez APRN.CNP documented in this encounterMedina Hospital03-30-2023 Miscellaneous Notes* Telephone Encounter - Carmel [...] orders. Garry Rodriguez APRN.CNP documented in this encounterMedina Hospital03-30-2023 Miscellaneous Notes* Telephone Encounter - Pilar [...] advise. Pilar Wallace MA documented in this encounterMedina Hospital2023 Miscellaneous Notes* Telephone Encounter - Akshat Quesada MA - 02/24/2023 9:40 AM EDT Second request , please send. Akshat Quesada MA * Telephone Encounter - Akshat Quesada MA - 02/23/2023 2:49 PM EDT Patient requesting meter to go to [employer]. Please send. Thanks. Akshat Quesada MA documented in this encounter[facility]2023 Miscellaneous Notes* Telephone Encounter - Akshat Quesada MA - 02/24/2023 9:36 AM EDT Lm on pt. Vm prior auth done for ozempic Muñoz code [id number]. Akshat Quesada MA documented in this encounterMedina Hospital03-28-2023 Miscellaneous Notes* Letter - Mammography Coordinator - 02/23/2023 2:27 PM EDT February 25, 2023 PID: [id number] Patt Crane [facility] [place] [address] Dear Ms. Crane, Your recent breast imaging [...] who ordered/prescribed your screening mammogram: Please call [phone] or EXT: [phone] to schedule an appointment for your additional [...] and reports are kept on [facility] as part of your permanent medical record, and are available for your continuing care. Thank you for allowing us to help in meeting your health care needs. Sincerely, Dr. Warren Interpreting Radiologist [facility] (Additional imaging) documented in this encounterMedina Hospital03-28-2023 History of Present illness Narrative* Anel [...] 23, 2023 1:18 PM documented in this encounterMedina Hospital03-27-2023 Miscellaneous Notes* Telephone Encounter - Garry Rodriguez APRN.CNP - 02/22/2023 11:12 AM EDT Rx changed to 3 ml pen, dose stays the same. Garry Rodriguez APRN.[place] * Telephone Encounter - Akshat Quesada MA - 02/22/2023 11:00 AM EDT Received fax from [employer] requesting 3ml pen for ozempic due to not having 1.5 any longer. Akshat Quesada MA Placed fax in red folder. documented in this encounterMedina Hospital03-24-2023 History of Present illness Narrative* Dena [...] 19, 2023 1:12 PM documented in this encounterMedina Hospital03-22-2023 History of Present illness Narrative* Garry Rodriguez, SHIRLENE.CHURCH OFFICIAL - 02/17/2023 11:24 AM EDT This note was created using SureFireter. Subjective Patt Crane is a 42 year old female here today for diabetes follow-up visit. I reviewed past medical, surgical, social, and family histories today and updated chart. Allergies, chronic medications, and supplements were also reviewed. 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 Diagnosed after she had her son about 11 years ago. She was in good health prior to her son being born Was on some oral meds in the past - metformin gave her GI side effects Home nurse from [facility] saw her recently, A1C was 10.0 - on 01/27/23 She has been out of medication for a little over a month Currently on Lantus insulin at bedtime 25-60 units based on her blood sugars Was seeing neurologist and sliver former for history of stroke and cardiomyopathy Was on coumadin then changed to different AC then told she didn't need that anymore Last neurologist and sliver former at [facility] Was taken off her blood pressure medications [...] change. 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 Nose: Nose normal. Mouth/Throat: Lips: [place]. Mouth: Mucous membranes are moist. Pharynx: Oropharynx [...] hyperglycemia, with long-term current use of insulin ([facility]) - ICD9:250.00, 790.29, V58.67, ICD10: [...] - ICD9: 626.2, ICD10: N92.0 Referral to [facility] WORK[facility] [place] - CONSULT TO SUPERVISOR UNLOADING 6. cardiomyopathy, - ICD9: 674.54, ICD10: O90.3 Was following with sliver former yearly, would like to see CC provider in [place] area She is clinically stable and asymptomatic - CONSULT TO CARDIOLOGY 7. Cerebrovascular accident (CVA) due to embolism of left middle cerebral artery (HCC) - ICD9: 434.11, ICD10: I63.412 Would like to continue yearly follow-up with neurology, referral placed [facility] Will likely need statin - CONSULT TO [...] up for mammogram, yearly mammogram recommended - [facility] SCREENING Garryarianna Rodriguez APRN.CHURCH OFFICIAL Reviewed patient's records in Epic: Saw Dr Parada endocrinology 11/19/20 - was on Basaglar and meal time humalog 11/19/20 C-Peptide = 2.5, normal Saw Dr. Charles cardiology 11/08/20 - ECHO 2013 normal LVF, no LVH, no valce abn, normal diastology. 04/05/18 normal treadmill stress ECHO. EKG NSR with RBBB. Was on Eliquis but no BP meds at that time. documented in this encounterMedina Hospital01-28-2020 History of Present illness Narrative* Татьяна Dinh PTA - 12/26/2019 9:20 AM [facility] Physical Therapy Cancellation/No-show Note Patient Name: Patt Andrew Crane : 1980 Date: 12/26/2019 Referring Practitioner: Ama Vaughn PA-C Diagnosis: Acute pain of Lt knee Visit Information: PT Visit Information PT Insurance Information: [facility] Total # of Visits Approved: 30 [...] [place] Signature: documented in this encounterSelect Medical [facility] Work Phone: 1(176) 420-190301-21-2020 History of Present illness Narrative* Moe Wong, JENNY - 12/19/2019 9:20 AM [facility] Physical Therapy Cancellation/No-show Note Patient Name: Patt Crane : 1980 Date: 12/19/2019 Referring Practitioner: Ama Vauhgn PA-C Diagnosis: Acute pain of Lt knee [...] 12/26/2019 at 9:20. Signature: documented in this [facility] Work Phone: [phone]) 828-691301-14-2020 History of Present illness Narrative* Shasta Coe, PT - 12/12/2019 9:20 AM EST Therapy Cancellation/No-show Note Date: 12/12/2019 Patient Name: Patt Crane : 1980 Referring Practitioner: Ama Vaughn PA-C Diagnosis: Acute pain of Lt knee Visit Information: PT Visit Information PT Insurance Information: [facility] Total # of Visits Approved: 30 [...] documented in this [facility] Work Phone: 1(929) 681-555412-31-2019 History of Present illness Narrative* Sonia Castellano, PT - 11/28/2019 9:00 AM EST [facility] PHYSICAL THERAPY EVALUATION Date: 11/28/2019 Patient Name: Patt Crane Account: [id number] : 1980 (39 y.o.) Gender: female Referring [...] Ambulation Assistance: Independent Transfer Assistance: Independent Active Job Placement Counselor: Yes 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 shelter goal 2: Reduce pain to </= 3/10 with all stair negotiation and prolonged walking. shelter goal 3: Pt will negotiate 4-6 stairs x3 without a HR with minimal to no knee deviations. shelter goal 4: Pt will be able to squat with minimal to no knee deviations with decreased c/o pain. PT Individual Minutes Time In: 920 Time Out: 949 Minutes: 29 Procedure Minutes:29' eval documented in this encounterGood Samaritan HospitalTab[facility] Work Phone: 1(392) 740-593712-15-2011 History of Past illness Narrative* Problem Noted Date Diagnosed Date Resolved Date Gestational diabetes mellitus, 11/12/2011 01/15/2024 documented as of this encounter (statuses as of 01/16/2024) [facility] HospitalDischarge summary Author Fernando Le [facility] Note Date/Time July 15, 2025 3: 51am [facility] Medical Records Department [address] [facility] [place] [address] Emergency Department Summary 07/15/25 MR#: [id number] Acct: [id number] Name: PATT CRANE Rep #:[id number] : 1980 45 From: Fernando Le MD [...] symptoms. No headache, no recent illness or uroq-efa-zzjktihcilxopgdlsr or changes in her medicines, no weakness, no problems walking or speaking or understanding others. She had a TIA in the past but it was 13 or 14years ago and she cannot remember exactly what symptoms she had but that was hermain concern here now. [facility] Medical History Cardiac LV ejection fraction [...] no sensory deficits noted Neuro Narrative: Normal emabol-fs-ozmt and zshp-sk-jzks. Normal speech. Normal strength. Normal answers to [...] % (Auto) 68.3 Lymph % (Auto) 20.2 [place] % (Auto) 8.6 Eos % (Auto) 1.9 [...] CT study for the brain. Reading Location: [place] [address] Head/Neck CTA 07/15/25 01:20 IMPRESSION: Patent intra and extra-cranial carotid and vertebral arteries. No stenotic lesions, aneurysmal dilatation or dissecting intimal flaps. Reading Location: [place] [address] Rhythm Strip Rhythm Strip: Sinus Rhythm Rate: [...] Accelerated hypertension Disposition Disposition: Acute Care Hospital [facility] NIHSS NIHSS 1a. Level of Consciousness: 0 [...] 0 - Absent 8. Sensory: 1 - Wtfu-ql-ynemxflc sensory loss; 9. Best Language: 0 - [...] your Primary Care Provider. Call [facility] ([phone]) or report to the closest Emergency Room. Call 911 if necessary. 07/15/25 0351 <Electronically signed by Fernando Le MD> Cosigner Signature (if applicable): CC: ODALYS Rodriguez ~ Signed [facility] Work Phone: Evaluation + Plan note No data available for this section [facility] Evaluation + Plan note Future Appointments Appointment Date:12/06/2024 09:00:00 AM Scheduled Provider:KRISTYN BRIONES MD Location:[facility] Appointment Type:[facility] Evaluation + Plan note Future Appointments Appointment Date:01/17/2025 10:00:00 AM Scheduled Provider:KRISTYN BRIONES MD Location:[facility] Appointment Type:[facility] Evaluation note* Diagnosis Metatarsalgia of left foot- Primary Enthesopathy of ankle and tarsus, unspecified documented in this encounter [facility] Work Phone: evaluation note* Diagnosis Type [...] Other screening mammogram documented in this encounter [facility] HospitalEvaluation [facility]* Diagnosis Type 2 diabetes mellitus with hyperglycemia, with long-term current use of insulin (HCC)- Primary Obesity, Class II, BMI 35-39.9 Obesity, unspecified documented in this encounter [facility]* Diagnosis Type 2 diabetes mellitus with hyperglycemia, with long-term current use of insulin (HCC) documented in this encounter [facility] [place] [facility]* Diagnosis Type 2 diabetes mellitus with hyperglycemia, with long-term current use of insulin (HCC) documented in this encounter [facility] [place] [facility]* Diagnosis Abnormal mammogram- Primary Abnormal mammogram, unspecified documented in this encounter [facility] [place] [facility]* Diagnosis Type 2 diabetes mellitus with hyperglycemia, with long-term current use of insulin (HCC)- Primary Obesity, Class II, BMI 35-39.9 Obesity, unspecified Depression screening Screening for depression documented in this encounter [facility] [place] [facility]* Diagnosis cardiomyopathy, - Primary Peripartum cardiomyopathy, Hyperlipidemia, unspecified hyperlipidemia type documented in this encounter [facility] [place] [facility]* Diagnosis Dilated cardiomyopathy (HCC)- Primary Other primary cardiomyopathies documented in this encounter [facility] [place] [facility]* Diagnosis Onset Date Resolution Status Elevated d-dimer acute Hypokalemia acute Lightheadedness acute Non-STEMI (non-ST elevated myocardial infarction) acute [facility] Work Phone: Evaluation note* Diagnosis Dizziness- Primary Dizziness and giddiness documented in this encounter [facility] [place] [facility]* Diagnosis Hyperlipidemia, unspecified hyperlipidemia type- Primary documented in this encounter [facility] [place] [facility]* Diagnosis Other ascites- Primary documented in this encounter [facility] [place] [facility]* Diagnosis Other ascites- Primary Right upper quadrant abdominal mass Abdominal or pelvic swelling, mass, or lump, right upper quadrant Abnormal abdominal ultrasound Nonspecific (abnormal) findings on radiological and other examination of abdominal area, including retroperitoneum Intra-abdominal and pelvic swelling, mass and lump, unspecified site [facility] Diagnosis Epigastric pain Abdominal pain, epigastric Other ascites [facility] Diagnosis Encounter for screening mammogram for malignant neoplasm of breast Other screening mammogram documented in this encounter [facility] [place] [facility]* Diagnosis Intra-abdominal and pelvic swelling, mass [...] nonalcoholic liver disease [facility]* Diagnosis Type 2 diabetes mellitus [...] of insulin (HCC) [facility]* Diagnosis Pain of left heel [...] of left foot [facility] [place] [facility]* Diagnosis Plantar fasciitis- Primary Plantar fascial fibromatosis Pain of left heel Pain in limb documented in this encounter [facility] note* Diagnosis Pain of left heel- Primary Pain in limb Plantar fasciitis Plantar fascial fibromatosis documented in this encounter [facility] note* Diagnosis Type 2 diabetes mellitus with hyperglycemia, without long-term current use of insulin (HCC)- Primary Cardiomyopathy, unspecified type (HCC) Essential (primary) hypertension Unspecified essential hypertension Dyslipidemia Other and unspecified hyperlipidemia Plantar fasciitis of left foot Plantar fascial fibromatosis Presence of intrauterine contraceptive device Encounter for screening mammogram for breast cancer documented [facility] this encounter [facility] [place] [facility]* Diagnosis Pain of left heel Pain in limb Plantar fasciitis Plantar fascial fibromatosis documented in this encounter [facility] note* Diagnosis Plantar fasciitis- Primary Plantar fascial fibromatosis documented in this encounter [facility] note* Diagnosis Plantar fasciitis- Primary Plantar fascial fibromatosis Pain of left heel Pain in limb documented in this encounter [facility] note* Diagnosis Uterine leiomyoma, unspecified location- Primary Type 2 diabetes mellitus with hyperglycemia, with long-term current use of insulin (HCC) Cyst of right ovary Other and unspecified ovarian cyst documented [facility] this encounter [facility] [place] [facility]* Diagnosis Onset Date Resolution Status Admit Date Peripartum cardiomyopathy, antepartum condition or complication acute June 20, 2025 8:06am HTN (hypertension) chronic May 302024 8:06am [facility] Work Phone: Hospital Discharge instructions* Attachments The following attachments cannot be sent through Care Everywhere. * Metatarsalgia (Persian) [facility] Work Phone: Hospital Discharge instructions No data available for this section [facility] Progress note No data available for this section [facility] Reason for referral (narrative)* Diagnostic Procedure Only (Routine) - Pending Review Specialty Diagnoses / Procedures Referred By Kai t Referred To Contact [facility] Diagnoses Abnormal mammogram Procedures US BREAST LTD LEFT US BREAST UNI REAL TIME WITH IMAGE LIMITED Garry Rodriguez APRN.CNP [address] [place] [address] [facility] [address] [place] [address] Referral ID Status Reason Start Date Expiration Date Visits Requested Visits Authorized [id number] Pending Review Auto-Generat ed Referral 02/25/2023 03/26/2024 1 1 * Diagnostic Procedure Only (Routine) - Pending Review Specialty Diagnoses / Procedures Referred By Contac t Referred To Contact [facility] Diagnoses Abnormal mammogram Procedures EB DIAGNOSTIC LEFT DIAGNOSTIC MAMMOGRAPHY COMPUTER-AIDED DETCJ UNI Garry Rodriguez APRN.CNP [address] [place] [address] [facility] [address] [place] [address] Referral ID Status Reason Start Date Expiration Date Visits Requested Visits Authorized [id number] Pending Review Auto-Generat ed Referral 02/25/2023 03/26/2024 1 1 [facility] for referral (narrative)* Outpatient Procedure (Routine) - Pending Review Specialty Diagnoses / Procedures Referred By Contac t Referred To Contact [facility] Diagnoses Peripartum cardiomyopathy, Hyperlipidemia, unspecified hyperlipidemia type Procedures ECHO ECHO TTHRC R-T 2D W/WOM-MODE COMPL SPEC&COLR D Tone Espino MD [address], [facility] [address] [place] [address] [facility] [address] [place] [address] Referral ID Status Reason Start Date Expiration Date Visits Requested Visits Authorized [id number] Pending Review Auto-Generat ed Referral 05/05/2023 05/04/2024 1 1 [facility] for referral (narrative)* Diagnostic Procedure Only (Routine) - Authorized Specialty Diagnoses / Procedures Referred By Contac t Referred To Contact [facility] IMAGING Diagnoses Other ascites Procedures US ABDOMEN COMPLETE US ABDOMINAL REAL TIME W/IMAGE DOCUMENTATION Garry Rodriguez APRN.CNP [address] [place] [address] [place] [address] Referral ID Status Reason Start Date Expiration Date Visits Requested Visits Authorized [id number] Authorized Auto-Generat ed Referral 10/12/2024 1 1 [facility] for referral (narrative)* Diagnostic Procedure Only (Routine) - Closed Specialty Diagnoses / Procedures Referred By Kai t Referred To Contact [facility] IMAGING Diagnoses Epigastric pain Procedures US ABD RIGHT UPPER QUADRANT US ABDOMINAL REAL TIME W/IMAGE LIMITED Garry Rodriguez APRN.CNP [address] [place] [address] [place] [address] Referral ID Status Reason Start Date Expiration Date V isits Requested Visits Authorized [id number] Closed Auto-Generate d Referral 08/20/2023 09/18/2024 1 1 [facility] for referral (narrative)* Diagnostic Procedure Only (Routine) - Closed Specialty Diagnoses / Procedures Referred By Kai t Referred To Contact [facility] Diagnoses Encounter for screening mammogram for malignant neoplasm of breast Procedures EB SCREENING SCREENING MAMMOGRAPHY BI 2-VIEW BREAST INC CAD Garry Rodriguez APRN.CHURCH OFFICIAL [address] [place] [address] [facility] [address] [facility] [place] [address] Referral ID Status Reason Start Date Expiration Date V isits Requested Visits Authorized [id number] Closed Auto-Generate d Referral 02/17/2023 03/18/2024 1 1 [facility] for referral (narrative)* Diagnostic Procedure Only (Routine) - Closed Specialty Diagnoses / Procedures Referred By Contac t Referred To Contact XR IMAGING Diagnoses Chronic right shoulder pain Procedures XR SHOULDER GENERAL 3V OR MORE AP/TRUE AP/OTHER RIGHT RADEX SHOULDER COMPLETE MINIMUM 2 VIEWS Garry Rodriguez APRN.CHURCH OFFICIAL [address] [place] [address] [place] [address] Referral ID Status Reason Start Date Expiration Date V isits Requested Visits Authorized [id number] Closed Auto-Generate d Referral 02/17/2023 03/18/2024 1 1 [facility] for referral (narrative)No reason for referral information availableH[facility] Work Phone: Reason for visit Narrative* Diagnostic Procedure Only (Routine) - Closed Specialty Diagnoses / Procedures Referred By Contac t Referred To Contact US IMAGING Diagnoses Epigastric pain Procedures US ABD RIGHT UPPER QUADRANT US ABDOMINAL REAL TIME W/IMAGE LIMITED Garry Rodriguez, ABLE BODIED SEAMAN.CHURCH OFFICIAL [address] [place] [address] [place] [address] Referral ID Status Reason Start Date Expiration Date V isits Requested Visits Authorized [id number] Closed Auto-Generate d Referral 08/20/2023 09/18/2024 1 1 [facility] for visit Narrative* Diagnostic Procedure Only (Routine) - Closed Specialty Diagnoses / Procedures Referred By Contac t Referred To Contact [facility] Diagnoses Encounter for screening mammogram for malignant neoplasm of breast Procedures EB SCREENING SCREENING MAMMOGRAPHY BI 2-VIEW BREAST INC CAD Garry Rodriguez, ABLE BODIED SEAMAN.CHURCH OFFICIAL [address] [place] [address] [facility] [address] [place] [address] Referral ID Status Reason Start Date Expiration Date V isits Requested Visits Authorized [id number] Closed Auto-Generate d Referral 02/17/2023 03/18/2024 1 1 [facility] for visit Narrative* Diagnostic Procedure Only (Routine) - Closed Specialty Diagnoses / Procedures Referred By Contac t Referred To Contact XR IMAGING Diagnoses Chronic right shoulder pain Procedures XR SHOULDER GENERAL 3V OR MORE AP/TRUE AP/OTHER RIGHT RADEX SHOULDER COMPLETE MINIMUM 2 VIEWS Garry Rodriguez ABLE BODIED SEAMAN.CHURCH OFFICIAL [address] [place] [address] [place] [address] Referral ID Status Reason Start Date Expiration Date V isits Requested Visits Authorized [id number] Closed Auto-Generate d Referral 02/17/2023 03/18/2024 1 1 [facility] Narrative* Diagnostic Procedure Only (Routine) - Closed Specialty Diagnoses / Procedures Referred By Contac t Referred To Contact XR IMAGING Diagnoses Pain of left heel Nodule of skin of left foot Procedures XR FOOT GENERAL 3V AP/LAT/OBL LEFT RADEX FOOT COMPLETE MINIMUM 3 VIEWS Garry Rodriguez, ABLE BODIED SEAMAN.CHURCH OFFICIAL [address] [place] [address] [place] [address] Referral ID Status Reason Start Date Expiration Date V isits Requested Visits Authorized [id number] Closed Auto-Generate d Referral 12/06/2024 01/05/2026 1 1 [facility] Summary Purpose Family History Relationship Condition Age at Onset Recorded Date/T dayanna mother Diabetes mellitus Unknown Hypertension Unknown father Diabetes mellitus Unknown Advance Directives Documents on File Type Date Recorded 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 Lead Accountant Expl anation Advance Directives and Living Will Power of Ballistics Expert Documents on File Type Date Recorded Patient Lead Accountant Expl anation ACP-Advance Directive ACP-Power of Ballistics Expert Documents on File Type Date Recorded 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 shelter goal 2: Reduce pain to </= 3/10 with [address] stair negotiation and prolonged walking. shelter goal 3: Pt will negotiate 4-6 stairs x3 without a HR with minimal to no knee deviations. 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 goal 4: Pt will be able to [...] Kam PTA - 01/09/2020 11:20 AM EST [facility] Cancellation/No-show Note Patient [...] NON OB TRANSVAGINAL Mike Tovar DO [address] [address] Status Reason Specialty Diagnoses / Procedures Referre d By Contact Referred To Contact Closed Radiology Diagnoses Menorrhagia with regular cycle Procedures US PELVIS COMPLETE Mike Tovar, DO [address] [address] Specialty Diagnoses / Procedures Referred By Contac t Referred To Contact [facility] Diagnoses Chronic right shoulder pain Procedures CONSULT TO PHYSICAL THERAPY PHYSICAL THERAPY EVALUATION HIGH COMPLEX 45 MINS Garry Rodriguez APRN.CHURCH OFFICIAL [address] [place] [address] [facility] [place] [address] Referral ID Status Reason Start Date Expiration Date Visits Requested Visits Authorized [id number] Pending Review Auto-Generat ed Referral 02/18/2023 02/18/2024 1 1 Specialty Diagnoses / Procedures Referred By Contac t Referred To Contact Garry Rodriguez APRN.CHURCH OFFICIAL [address] [place] [address] Referral ID Status Reason Start Date Expiration Date Visits Re quested Visits Authorized [id number] Closed 1 1 Specialty Diagnoses / Procedures Referred By Contac t Referred To Contact XR IMAGING Diagnoses Chronic right shoulder pain Procedures XR SHOULDER GENERAL 3V OR MORE AP/TRUE AP/OTHER RIGHT RADEX SHOULDER COMPLETE MINIMUM 2 VIEWS Garry Rodriguez APRN.CHURCH OFFICIAL [address] [place] [address] Xr Imaging Referral ID Status Reason Start Date Expiration Date Visits Requested Visits Authorized [id number] Pending Review Auto-Generat ed Referral 02/17/2023 03/18/2024 1 1 Specialty Diagnoses / Procedures Referred By Contac t Referred To Contact Neurology / [facility] Department Diagnoses Cerebrovascular accident (CVA) due to embolism of left middle cerebral artery (HCC) Procedures CONSULT TO NEUROLOGY OFFICE/OUTPATIENT [facility] 60-74 MINUTES Garry Rodriguez APRN.CHURCH OFFICIAL [address] [place] [address] Leti Cox MD Referral ID Status Reason Start Date Expiration Date Visits Requested Visits Authorized [id number] Authorized PCP Requested Referral 02/17/2023 02/17/2024 1 1 Specialty Diagnoses / Procedures Referred By Contac t Referred To Contact Cardiology Diagnoses Primary hypertension Peripartum cardiomyopathy, Procedures CONSULT TO CARDIOLOGY OFFICE/OUTPATIENT [facility] MDM 60-74 MINUTES Garry Rodriguez ABLE BODIED SEAMAN.CHURCH OFFICIAL [address] [place] [address] Johnna Lennon MD [facility] [place] [address] Referral ID Status Reason Start Date Expiration Date Visits Requested Visits Authorized [id number] Authorized PCP Requested Referral 02/17/2023 02/17/2024 1 1 Specialty Diagnoses / Procedures Referred By Contac t Referred To Contact [facility] Department Diagnoses Type 2 diabetes mellitus with hyperglycemia, with long-term current use of insulin (HCC) Wears glasses Procedures CONSULT TO OPHTHALMOLOGY OFFICE/OUTPATIENT [facility] MDM 60-74 MINUTES Garry Rodriguez APRN.CHURCH OFFICIAL [address] [place] [address] [facility] Referral ID Status Reason Start Date Expiration Date Visits Requested Visits Authorized [id number] Authorized PCP Requested Referral 02/17/2023 02/17/2024 1 1 Specialty Diagnoses / Procedures Referred By Contac t Referred To Contact SUPERVISOR UNLOADING / [facility] Department Diagnoses Menorrhagia with regular cycle Procedures CONSULT TO SUPERVISOR UNLOADING OFFICE/OUTPATIENT [facility] 60-74 MINUTES Garry Rodriguez, ABLE BODIED SEAMAN.CHURCH OFFICIAL [address] [place] [address] [facility] Dept Referral ID Status Reason Start Date Expiration Date Visits Requested Visits Authorized [id number] Authorized PCP Requested Referral Auto-Generate d Referral 02/17/2023 02/17/2024 1 1 Specialty Diagnoses / Procedures Referred By Contac t Referred To Contact BR IMAGING Diagnoses Encounter for screening mammogram for malignant neoplasm of breast Procedures EB SCREENING SCREENING MAMMOGRAPHY BI 2-VIEW BREAST INC CAD Garry Rodriguez, ABLE BODIED SEAMAN.CHURCH OFFICIAL [address] [place] [address] Br Imaging [address] [place] [address] Referral ID Status Reason Start Date Expiration Date Visits Requested Visits Authorized [id number] Pending Review Auto-Generat ed Referral 02/17/2023 03/18/2024 1 1 Specialty Diagnoses / Procedures Referred By Contac t Referred To Contact CT IMAGING Diagnoses Intra-abdominal and pelvic swelling, mass and lump, unspecified site Procedures CT ABD/PEL W IVCON CT ABD & PELVIS W/CONTRAST Garry Rodriguez, ABLE BODIED SEAMAN.CHURCH OFFICIAL [address] [place] [address] [place] [address] Referral ID Status Reason Start Date Expiration Date Visits Requested Visits Authorized [id number] Pending Review Auto-Generat ed Referral 10/15/2024 1 1 Referral ID Status Reason Start Date Expiration Date V isits Requested Visits Authorized [id number] Closed Auto-Generate d Referral 09/18/2023 11/17/2023 1 1 Specialty Diagnoses / Procedures Referred By Contac t Referred To Contact MR IMAGING Diagnoses Liver lesion Procedures MRI LIVER WO/W IVCON MRI ABDOMEN W/O & W/CONTRAST MATERIAL Garry Rodriguez ABLE BODIED SEAMAN.CHURCH OFFICIAL [address] [place] [address] [place] [address] Referral ID Status Reason Start Date Expiration Date Visits Requested Visits Authorized [id number] Pending Review Auto-Generat ed Referral 10/06/2023 11/04/2024 1 1 Referral ID Status Reason Start Date Expiration Date Visits Requested Visits Authorized [id number] Pending Review Auto-Generat ed Referral 01/12/2024 01/11/2025 1 1 Specialty Diagnoses / Procedures Referred By Kai t Referred To Contact BR IMAGING Diagnoses Encounter for screening mammogram for breast cancer Procedures EB SCREENING SCREENING MAMMOGRAPHY BI 2-VIEW BREAST INC CAD Garry Rodriguez, ABLE BODIED SEAMAN.CHURCH OFFICIAL [address] [place] [address] [facility] [place] [address] Referral ID Status Reason Start Date Expiration Date Visits Requested Visits Authorized [id number] Pending Review Auto-Generat ed Referral 01/12/2024 02/10/2025 1 1 Specialty Diagnoses / Procedures Referred By Contac t Referred To Contact CT IMAGING Diagnoses Lung nodule Procedures CT CHEST WO IVCON DIAGNOSTIC COMPUTED TOMOGRAPHY THORAX W/O CNTRST Garry Rodriguez, ABLE BODIED SEAMAN.CHURCH OFFICIAL [address] [place] [address] Ct Imaging [facility] Referral ID Status Reason Start Date Expiration Date Visits Requested Visits Authorized [id number] New Request Auto-Generat ed Referral 11/08/2025 1 1 Specialty Diagnoses / Procedures Referred By Kai t Referred To Contact Podiatry / [facility] DEPARTMENT Diagnoses Pain of left heel Nodule of skin of left foot Procedures CONSULT TO PODIATRY OFFICE/OUTPATIENT [facility] MDM 60 MINUTES Garry Rodriguez, ABLE BODIED SEAMAN.CHURCH OFFICIAL [address] [place] [address] Emilia Griffiths [address] [address] Referral ID Status Reason Start Date Expiration Date Visits Requested Visits Authorized [id number] Authorized PCP Requested Referral 12/06/2024 12/06/2025 1 1 Specialty Diagnoses / Procedures Referred By Contac t Referred To Contact XR IMAGING Diagnoses Pain of left heel Nodule of skin of left foot Procedures XR FOOT GENERAL 3V AP/LAT/OBL LEFT RADEX FOOT COMPLETE MINIMUM 3 VIEWS Garry Rodriguez ABLE BODIED SEAMAN.CHURCH OFFICIAL [address] [place] [address] [place] [address] Referral ID Status Reason Start Date Expiration Date V isits Requested Visits Authorized [id number] Closed Auto-Generate d Referral 12/06/2024 01/05/2026 1 1 Specialty Diagnoses / Procedures Referred By Contac t Referred To Contact Mail Deliverer / [facility] DEPARTMENT Diagnoses Screening for cervical cancer Procedures CONSULT TO SUPERVISOR UNLOADING OFFICE/OUTPATIENT [facility] MDM 60 MINUTES Garry Rodriguez APRN.CHURCH OFFICIAL [address] [place] [address] Zeina Dasilva MD [place] [address] Referral ID Status Reason Start Date Expiration Date Visits Requested Visits Authorized [id number] Authorized PCP Requested Referral Auto-Generate d Referral 12/06/2024 12/06/2025 1 1 Specialty Diagnoses / Procedures Referred By Contac t Referred To Contact Diagnoses Type 2 diabetes mellitus with hyperglycemia, without long-term current use of insulin (HCC) Garry Rodriguez APRN.CHURCH OFFICIAL [address] [place] [address] Referral ID Status Reason Start Date Expiration Date Visits Re quested Visits Authorized [id number] Denied 1 1 Specialty Diagnoses / Procedures Referred By Contac t Referred To Contact BR IMAGING Diagnoses Encounter for screening mammogram for breast cancer Procedures EB SCREENING W LINDEN SCREENING DIGITAL BREAST TOMOSYNTHESIS BI SCREENING MAMMOGRAPHY BI 2-VIEW BREAST INC CAD Garry Rodriguez, ABLE BODIED SEAMAN.CHURCH OFFICIAL [address] [place] [address] Br Imaging [place] [address] Referral ID Status Reason Start Date Expiration Date Visits Requested Visits Authorized [id number] New Request Auto-Generat ed Referral 12/06/2024 01/05/2026 [...] section and content) DATE CREATED AUTHOR 05/25/2018 [facility] DATE CREATED AUTHOR AUTHOR'S ORGANIZ ATION 05/25/2018 [facility] DATE CREATED AUTHOR AUTHOR'S ORGANIZ ATION 08/21/2021 [facility] DATE CREATED AUTHOR AUTHOR'S ORGANIZ ATION 08/21/2021 [facility] DATE CREATED AUTHOR AUTHOR'S ORGANIZ ATION 07/11/2022 [facility] DATE CREATED AUTHOR AUTHOR'S ORGANIZ ATION 05/24/2024 [facility] DATE CREATED AUTHOR AUTHOR'S ORGANIZ ATION 12/16/2024 [facility] DATE CREATED AUTHOR AUTHOR'S ORGANIZ ATION 05/18/2025 [facility] DATE CREATED AUTHOR AUTHOR'S ORGANIZ ATION 06/01/2025 [facility] DATE CREATED AUTHOR AUTHOR'S ORGANIZ ATION 06/21/2025 [facility] Reason for Visit (unrecogniz ed section and content) Reason Comments PT Progress Note Specialty Diagnoses / Procedures Referred By Contac t Referred To Contact [facility] Diagnoses Pain of left heel Plantar fasciitis Procedures CONSULT TO PHYSICAL THERAPY PHYSICAL THERAPY EVALUATION HIGH COMPLEX 45 MINS Emilia Griffiths [address] [place] [address] Phone: tel: fax: [facility] [address] [place] [address] Referral ID Status Reason Start Date Expiration Date Visits Requested Visits Authorized [id number] Authorized Auto-Generat ed Referral 11/29/2024 11/28/2025 99 [address] Specialty Diagnoses / Procedures Referred By Contac t Referred To Contact CT IMAGING Diagnoses Intra-abdominal and pelvic swelling, mass and lump, unspecified site Procedures CT ABD/PEL W IVCON CT ABD & PELVIS W/CONTRAST Garry Rodriguez, ABLE BODIED SEAMAN.CHURCH OFFICIAL [address] [place] [address] [place] [address] Referral ID Status Reason Start Date Expiration Date V isits Requested Visits Authorized [id number] Closed Auto-Generate d Referral 09/18/2023 11/17/2023 1 1 Status Reason Specialty Diagnoses / Procedures Referre d By Contact Referred To Contact Closed Radiology Diagnoses Menorrhagia with regular cycle Procedures US PELVIS COMPLETE Mike Tovar, DO [address] [facility] [address] [place] [address] Specialty Diagnoses / Procedures Referred By Kai loyola Referred To Contact Dietitian Diagnoses Type 2 diabetes mellitus with hyperglycemia, with long-term current use of insulin (HCC) Class 2 severe obesity due to excess calories with serious comorbidity and body mass index (BMI) of 37.0 to 37.9 in adult (HCC) Cardiomyopathy, peripartum, Dyslipidemia Essential hypertension Ama Vaughn PA-C [address] [place] [address] [facility] [address] [place] [address] Referral ID Status Reason Start Date Expiration Date V isits Requested Visits Authorized [id number] Open Specialty Services Required 11/27/2021 11/27/2022 1 1 Status Reason Specialty Diagnoses / Procedures Referred By Contact Referred To Contact Authorized Specialty Services Required Physical Therapy Diagnoses Acute pain of left knee Procedures 30 visits each discipline calendar year @ 100% medicaid allowed amount Effective 07/30/14 no term date Ama Vaughn PA-C [address] [place] [address] [place] [address] [place] [address] Reason Comments Foot Pain Pt c/o R foot pain s nyla this AM; denies injury, or trauma Specialty Diagnoses / Procedures Referred By Kai loyola Referred To Contact [facility] [address] [place] [address] [facility] [address] [place] [address] Referral ID Status Reason Start Date Expiration Date Visits Re quested Visits Authorized [id number] 1 1 Reason Comments Establish Care Diabetes [...] COMPUTED TOMOGRAPHY THORAX W/O CNTRST Garry Rodriguez, ABLE BODIED SEAMAN.CHURCH OFFICIAL [address] [place] [address] Ct Imaging [place] [address] Referral ID Status Reason Start Date Expiration Date V isits Requested Visits Authorized [id number] Closed Auto-Generate d Referral 10/23/2024 12/22/2024 1 [...] NEW HIGH MDM 60 MINUTES Garry Rodriguez, ABLE BODIED SEAMAN.CHURCH OFFICIAL [address] [place] [address] Phone: tel: fax: Emilia Griffiths [address] [address] Phone: tel: fax: Referral ID Status Reason Start Date Expiration Date V isits Requested Visits Authorized [id number] Closed PCP Requested Referral 12/06/2024 12/06/2025 1 [...] Care Teams (unrecognized sec tion and content) Commercial Real Estate Broker Relationship Specialty Start Date End Date Ama Vaughn PA-C PCP - General Physician Homicide Squad Captain 08/05/17 Commercial Real Estate Broker Relationship Specialty Start Date End Date Ama Vaughn PA-C PCP - General Physician Homicide Squad Captain 08/05/17 Commercial Real Estate Broker Relationship Specialty Start Date End Date Garry Rodriguez, ABLE BODIED SEAMAN.CHURCH OFFICIAL [address] [place], [place] [id number] PCP - General Family Medicine 02/17/23 Commercial Real Estate Broker Relationship Specialty Start Date End Date Garry Rodriguez, ABLE BODIED SEAMAN.CHURCH OFFICIAL [address] [place], [place] [id number] PCP - General Family Medicine 02/17/23 Commercial Real Estate Broker Relationship Specialty Start Date End Date Garry Rodriguez, ABLE BODIED SEAMAN.CHURCH OFFICIAL [address] [place], [place] [id number] PCP - General Family Medicine 02/17/23 Commercial Real Estate Broker Relationship Specialty Start Date End Date Garry Rodriguez ABLE BODIED SEAMAN.CHURCH OFFICIAL [address] [place] [address] PCP - General Family Medicine 02/17/23 Commercial Real Estate Broker Relationship Specialty Start Date End Date Garry Rodriguez ABLE BODIED SEAMAN.CHURCH OFFICIAL [address] [place] [address] PCP - General Family Medicine 02/17/23 Commercial Real Estate Broker Relationship Specialty Start Date End Date Garry Rodriguez ABLE BODIED SEAMAN.CHURCH OFFICIAL [address] [place] [address] PCP - General Family Medicine 02/17/23 Commercial Real Estate Broker Relationship Specialty Start Date End Date Garry Rodriguez ABLE BODIED SEAMAN.CHURCH OFFICIAL [address] [place] [address] PCP - General Family Medicine 02/17/23 Commercial Real Estate Broker Relationship Specialty Start Date End Date Garry Rodriguez ABLE BODIED SEAMAN.CHURCH OFFICIAL [address] [place] [address] PCP - General Family Medicine 02/17/23 Commercial Real Estate Broker Relationship Specialty Start Date End Date Garry Rodriguez ABLE BODIED SEAMAN.CHURCH OFFICIAL [address] [place] [address] PCP - General Family Medicine 02/17/23 Commercial Real Estate Broker Relationship Specialty Start Date End Date Garry Rodriguez, ABLE BODIED SEAMAN.CHURCH OFFICIAL [address] [place] [address] PCP - General Family Medicine 02/17/23 Commercial Real Estate Broker Relationship Specialty Start Date End Date Garry Rodriguez ABLE BODIED SEAMAN.CHURCH OFFICIAL [address] [place] [address] PCP - General Family Medicine 02/17/23 Team Status: Active Member Role Status Dates Garry Rodriguez CLERK OF COURT, CLERK OF COURT-C Primary Care Provider Active Team Status: Active Member Role Status Dates Placido Pena MD Emergency Provider Active Garry Rodriguez CLERK OF COURT, CLERK OF COURT-C Primary Care Provider Active Dr. Ha Echevarria MD Admit Provider, Attending Pro vider Active Commercial Real Estate Broker Relationship Specialty Start Date End Date MeaganchitoJulio CGarry C, ABLE BODIED SEAMAN.CHURCH OFFICIAL [address] [place] [address] PCP - General Family Medicine 02/17/23 Team Status: Active Member Role Status Dates Placido Pena MD Emergency Provider Active Garry Rodriguez CLERK OF COURT, CLERK OF COURT-C Primary Care Provider Active Dr. Ha Echevarria MD Admit Provider, Attending Provider, Other Provider Active Dr. Damian Blanco MD Other Provider Active Team Status: Active Member Role Status Dates Placido Pena MD Emergency Provider Active Garry Rodriguez CLERK OF COURT, CLERK OF COURT-C Primary Care Provider Active Dr. Ha Echevarria MD Admit Provider, Other Provide r Active Dr. Damian Blanco MD Attending Provider, Other Provide r Active Dr. Aj Colon MD Other Provider Active Team Status: Active Member Role Status Dates Placido Pena MD Emergency Provider Active Garry Rodriguez CLERK OF COURT, CLERK OF COURT-C Primary Care Provider Active Dr. Ha Echevarria MD Admit Provider, Other Provide r Active Dr. Damian Blanco MD Other Provider Active Dr. Aj Colon MD Attending Provider, Other Provider Active Team Status: Inactive Member Role Status Dates Placido Pena MD Emergency Provider Active Garry Rodriguez CLERK OF COURT, CLERK OF COURT-C Primary Care Provider Active Dr. Ha Echevarria MD Admit Provider, Other Provide r Active Dr. Damian Blanco MD Other Provider Active Dr. Aj Colon MD Attending Provider Active Commercial Real Estate Broker Relationship Specialty Start Date End Date Meaganchito Garry C, ABLE BODIED SEAMAN.CHURCH OFFICIAL [address] [place] [address] PCP - General Family Medicine 02/17/23 Commercial Real Estate Broker Relationship Specialty Start Date End Date Garry Rodriguez, ABLE BODIED SEAMAN.CHURCH OFFICIAL [address] [facility], [place] [id number] PCP - General Family Medicine 02/17/23 Commercial Real Estate Broker Relationship Specialty Start Date End Date Garry Rodriguez ABLE BODIED SEAMAN.CHURCH OFFICIAL [address] [facility], [place] [id number] PCP - General Family Medicine 02/17/23 Team Status: Inactive Member Role Status Dates Garry Rodriguez CLERK OF COURT, CLERK OF COURT-C Primary Care Provider, Referpeggy do Provider Active Dr. Damian Blanco MD Attending Provider Active Team Status: Inactive Member Role Status Dates Garry Rodriguez CLERK OF COURT, CLERK OF COURT-C Primary Care Provider Active Alexia Stacy CLERK OF COURT, CLERK OF COURT-C Attending Provider, Referring Karlos andrews Active Commercial Real Estate Broker Relationship Specialty Start Date End Date Garry Rodriguez ABLE BODIED SEAMAN.CHURCH OFFICIAL [address] [place] [address] PCP - General Family Medicine 02/17/23 Commercial Real Estate Broker Relationship Specialty Start Date End Date Garry Rodriguez ABLE BODIED SEAMAN.CHURCH OFFICIAL [address] [place] [address] PCP - General Family Medicine 02/17/23 Commercial Real Estate Broker Relationship Specialty Start Date End Date Garry Rodriguez, ABLE BODIED SEAMAN.CHURCH OFFICIAL [address] [place] [address] PCP - General Family Medicine 02/17/23 Commercial Real Estate Broker Relationship Specialty Start Date End Date Garry Rodriguez, ABLE BODIED SEAMAN.CHURCH OFFICIAL [address] [place] [address] PCP - General Family Medicine 02/17/23 Team Status: Inactive Member Role Status Dates Garry Rodriguez CLERK OF COURT, CLERK OF COURT-C Primary Care Provider Active Alexia Kelley CNM Attending Provider, Referring Pro vider Active Commercial Real Estate Broker Relationship Specialty Start Date End Date Garry Rodriguez ABLE BODIED SEAMAN.CHURCH OFFICIAL [address] [place] [address] PCP - General Family Medicine 02/17/23 Commercial Real Estate Broker Relationship Specialty Start Date End Date Garry Rodriguez ABLE BODIED SEAMAN.CHURCH OFFICIAL [address] [place] [address] PCP - General Family Medicine 02/17/23 Commercial Real Estate Broker Relationship Specialty Start Date End Date Garry Rodriguez ABLE BODIED SEAMAN.CHURCH OFFICIAL [address] [place] [address] PCP - General Family Medicine 02/17/23 Commercial Real Estate Broker Relationship Specialty Start Date End Date Garry Rodriguez ABLE BODIED SEAMAN.CHURCH OFFICIAL [address] [place] [address] PCP - General Family Medicine 02/17/23 Commercial Real Estate Broker Relationship Specialty Start Date End Date Garry Rodriguez, ABLE BODIED SEAMAN.CHURCH OFFICIAL [address] [place] [address] PCP - General Family Medicine 02/17/23 Commercial Real Estate Broker Relationship Specialty Start Date End Date Garry Rodriguez, ABLE BODIED SEAMAN.CHURCH OFFICIAL [address] [place] [address] PCP - General Family Medicine 02/17/23 Commercial Real Estate Broker Relationship Specialty Start Date End Date Garry Rodriguez, ABLE BODIED SEAMAN.CHURCH OFFICIAL [address] [place] [address] PCP - General Family Medicine 02/17/23 Commercial Real Estate Broker Relationship Specialty Start Date End Date Garry Rodriguez APRN.CHURCH OFFICIAL [address] [place] [address] PCP - General Family Medicine 02/17/23 Commercial Real Estate Broker Relationship Specialty Start Date End Date Garry Rodriguez ABLE BODIED SEAMAN.CHURCH OFFICIAL [address] [place] [address] PCP - General Family Medicine 02/17/23 Commercial Real Estate Broker Relationship Specialty Start Date End Date Garry Rodriguez ABLE BODIED SEAMAN.CHURCH OFFICIAL [address] [place] [address] PCP - General Family Medicine 02/17/23 Commercial Real Estate Broker Relationship Specialty Start Date End Date Garry Rodriguez ABLE BODIED SEAMAN.CHURCH OFFICIAL [address] [place] [address] PCP - General Family Medicine 02/17/23 Commercial Real Estate Broker Relationship Specialty Start Date End Date Garry Rodriguez APRN.CHURCH OFFICIAL [address] [place] [address] PCP - General Family Medicine 02/17/23 Commercial Real Estate Broker Relationship Specialty Start Date End Date Garry Rodriguez ABLE BODIED SEAMAN.CHURCH OFFICIAL [address] [place] [address] PCP - General Family Medicine 02/17/23 Commercial Real Estate Broker Relationship Specialty Start Date End Date Garry Rodriguez ABLE BODIED SEAMAN.CHURCH OFFICIAL [address] [place] [address] PCP - General Family Medicine 02/17/23 Commercial Real Estate Broker Relationship Specialty Start Date End Date Garry Rodrigeuz ABLE BODIED SEAMAN.CHURCH OFFICIAL [address] [place], [place] [id number] PCP - General Family Medicine 02/17/23 Commercial Real Estate Broker Relationship Specialty Start Date End Date Garry Rodriguez, ABLE BODIED SEAMAN.CHURCH OFFICIAL [address] [place], [place] [id number] PCP - General Family Medicine 02/17/23 Commercial Real Estate Broker Relationship Specialty Start Date End Date Garry Rodriguez, ABLE BODIED SEAMAN.CHURCH OFFICIAL [address] [place], [place] [id number] PCP - General Family Medicine 02/17/23 Commercial Real Estate Broker Relationship Specialty Start Date End Date Garry Rodriguez, ABLE BODIED SEAMAN.CHURCH OFFICIAL [address] [place], [place] [id number] PCP - General Family Medicine 02/17/23 Commercial Real Estate Broker Relationship Specialty Start Date End Date Garry Rodriguez, ABLE BODIED SEAMAN.CHURCH OFFICIAL [address] [place], [place] [id number] PCP - General Family Medicine 02/17/23 Team Status: Active Member Role/Relationship Status Dates Garry Rodriguez NP, CLERK OF COURT-C Primary Care Provider Active Team Status: Inactive Member Role/Relationship Status Dates Garry Rodriguez NP, CLERK OF COURT-C Primary Care Provider Active Start: June 20, 2025 End: June 20, 2025 Garry Rodriguez NP, CLERK OF COURT-C Referring Provider Active Start: June 20, 2025 End: June 20, 2025 Keenan Lynne NP, CLERK OF COURT-C Attending Provider Active S tart: June 20, 2025 End: June 20, 2025 Team Status: Active Member Role/Relationship Status Dates Garry Rodriguez NP, CLERK OF COURT-C Primary Care Provider Active Start: July 15, [...] or prosecute any alcohol or drug abuse patient.[facility] Hospital[facility] the event this information is protected by the Federal Confidentiality of Alcohol and Drug Abuse Patient Records regulations: The Federal rules restrict any use of the information to criminally investigate or prosecute any alcohol or drug abuse patient.[facility] HospitalIn the event this information is protected [...] or prosecute any alcohol or drug abuse patient.[facility] HospitalIn the event this information is protected by the Federal Confidentiality of Alcohol and Drug Abuse Patient Records regulations: The Federal rules restrict any use of the information to criminally investigate or prosecute any alcohol or drug abuse patient.[facility] HospitalIn the event this information is protected by the Federal Confidentiality of Alcohol and Drug Abuse Patient Records regulations: The Federal rules restrict any use of the information to criminally investigate or prosecute any alcohol or drug abuse patient.[facility] HospitalIn the event this information is protected by the Federal Confidentiality of Alcohol and Drug Abuse Patient Records regulations: The Federal rules restrict any use of the information to criminally investigate or prosecute any alcohol or drug abuse patient.[facility] HospitalIn the event this information is protected by the Federal Confidentiality of Alcohol and Drug Abuse Patient Records regulations: The Federal rules restrict any use of the information to criminally investigate or prosecute any alcohol or drug abuse patient.[facility] HospitalIn the event this information is protected by the Federal Confidentiality of Alcohol and Drug Abuse Patient Records regulations: The Federal rules restrict any use of the information to criminally investigate or prosecute any alcohol or drug abuse patient.[facility] HospitalIn the event this information is protected by the Federal Confidentiality of Alcohol and Drug Abuse Patient Records regulations: The Federal rules restrict any use of the information to criminally investigate or prosecute any alcohol or drug abuse patient.[facility] HospitalIn the event this information is protected by the Federal Confidentiality of Alcohol and Drug Abuse Patient Records regulations: The Federal rules restrict any use of the information to criminally investigate or prosecute any alcohol or drug abuse patient.[facility] HospitalIn the event this information is protected by the Federal Confidentiality of Alcohol and Drug Abuse Patient Records regulations: The Federal rules restrict any use of the information to criminally investigate or prosecute any alcohol or drug abuse patient.[facility] HospitalIn the event this information is protected by the Federal Confidentiality of Alcohol and Drug Abuse Patient Records regulations: The Federal rules restrict any use of the information to criminally investigate or prosecute any alcohol or drug abuse patient.[facility] HospitalIn the event this information is protected by the Federal Confidentiality of Alcohol and Drug Abuse Patient Records regulations: The Federal rules restrict any use of the information to criminally investigate or prosecute any alcohol or drug abuse patient.[facility] HospitalIn the event this information is protected by the Federal Confidentiality of Alcohol and Drug Abuse Patient Records regulations: The Federal rules restrict any use of the information to criminally investigate or prosecute any alcohol or drug abuse patient.[facility] HospitalIn the event this information is protected by the Federal Confidentiality of Alcohol and Drug Abuse Patient Records regulations: The Federal rules restrict any use of the information to criminally investigate or prosecute any alcohol or drug abuse patient.[facility] HospitalIn the event this information is protected by the Federal Confidentiality of Alcohol and Drug Abuse Patient Records regulations: The Federal rules restrict any use of the information to criminally investigate or prosecute any alcohol or drug abuse patient.[facility] HospitalIn the event this information is protected by the Federal Confidentiality of Alcohol and Drug Abuse Patient Records regulations: The Federal rules restrict any use of the information to criminally investigate or prosecute any alcohol or drug abuse patient.[facility] HospitalIn the event this information is protected by the Federal Confidentiality of Alcohol and Drug Abuse Patient Records regulations: The Federal rules restrict any use of the information to criminally investigate or prosecute any alcohol or drug abuse patient.[facility] HospitalIn the event this information is protected by the Federal Confidentiality of Alcohol and Drug Abuse Patient Records regulations: The Federal rules restrict any use of the information to criminally investigate or prosecute any alcohol or drug abuse patient.[facility] HospitalIn the event this information is protected by the Federal Confidentiality of Alcohol and Drug Abuse Patient Records regulations: The Federal rules restrict any use of the information to criminally investigate or prosecute any alcohol or drug abuse patient.[facility] HospitalIn the event this information is protected by the Federal Confidentiality of Alcohol and Drug Abuse Patient Records regulations: The Federal rules restrict any use of the information to criminally investigate or prosecute any alcohol or drug abuse patient.[facility] HospitalIn the event this information is protected by the Federal Confidentiality of Alcohol and Drug Abuse Patient Records regulations: The Federal rules restrict any use of the information to criminally investigate or prosecute any alcohol or drug abuse patient.[facility] HospitalIn the event this information is protected by the Federal Confidentiality of Alcohol and Drug Abuse Patient Records regulations: The Federal rules restrict any use of the information to criminally investigate or prosecute any alcohol or drug abuse patient.[facility] HospitalIn the event this information is protected by the Federal Confidentiality of Alcohol and Drug Abuse Patient Records regulations: The Federal rules restrict any use of the information to criminally investigate or prosecute any alcohol or drug abuse patient.[facility] HospitalIn the event this information is protected by the Federal Confidentiality of Alcohol and Drug Abuse Patient Records regulations: The Federal rules restrict any use of the information to criminally investigate or prosecute any alcohol or drug abuse patient.[facility] HospitalIn the event this information is protected by the Federal Confidentiality of Alcohol and Drug Abuse Patient Records regulations: The Federal rules restrict any use of the information to criminally investigate or prosecute any alcohol or drug abuse patient.[facility] HospitalIn the event this information is protected by the Federal Confidentiality of Alcohol and Drug Abuse Patient Records regulations: The Federal rules restrict any use of the information to criminally investigate or prosecute any alcohol or drug abuse patient.[facility] HospitalIn the event this information is protected by the Federal Confidentiality of Alcohol and Drug Abuse Patient Records regulations: The Federal rules restrict any use of the information to criminally investigate or prosecute any alcohol or drug abuse patient.[facility] HospitalIn the event this information is protected by the Federal Confidentiality of Alcohol and Drug Abuse Patient Records regulations: The Federal rules restrict any use of the information to criminally investigate or prosecute any alcohol or drug abuse patient.[facility] HospitalIn the event this information is protected by the Federal Confidentiality of Alcohol and Drug Abuse Patient Records regulations: The Federal rules restrict any use of the information to criminally investigate or prosecute any alcohol or drug abuse patient.[facility] HospitalIn the event this information is protected by the Federal Confidentiality of Alcohol and Drug Abuse Patient Records regulations: The Federal rules restrict any use of the information to criminally investigate or prosecute any alcohol or drug abuse patient.[facility] HospitalIn the event this information is protected by the Federal Confidentiality of Alcohol and Drug Abuse Patient Records regulations: The Federal rules restrict any use of the information to criminally investigate or prosecute any alcohol or drug abuse patient.[facility] HospitalIn the event this information is protected by the Federal Confidentiality of Alcohol and Drug Abuse Patient Records regulations: The Federal rules restrict any use of the information to criminally investigate or prosecute any alcohol or drug abuse patient.[facility] HospitalIn the event this information is protected by the Federal Confidentiality of Alcohol and Drug Abuse Patient Records regulations: The Federal rules restrict any use of the information to criminally investigate or prosecute any alcohol or drug abuse patient.[facility] HospitalIn the event this information is protected by the Federal Confidentiality of Alcohol and Drug Abuse Patient Records regulations: The Federal rules restrict any use of the information to criminally investigate or prosecute any alcohol or drug abuse patient.[facility] HospitalIn the event this information is protected by the Federal Confidentiality of Alcohol and Drug Abuse Patient Records regulations: The Federal rules restrict any use of the information to criminally investigate or prosecute any alcohol or drug abuse patient.[facility] HospitalIn the event this information is protected by the Federal Confidentiality of Alcohol and Drug Abuse Patient Records regulations: The Federal rules restrict any use of the information to criminally investigate or prosecute any alcohol or drug abuse patient.[facility] HospitalIn the event this information is protected by the Federal Confidentiality of Alcohol and Drug Abuse Patient Records regulations: The Federal rules restrict any use of the information to criminally investigate or prosecute any alcohol or drug abuse patient.[facility] HospitalIn the event this information is protected by the Federal Confidentiality of Alcohol and Drug Abuse Patient Records regulations: The Federal rules restrict any use of the information to criminally investigate or prosecute any alcohol or drug abuse patient.[facility] HospitalIn the event this information is protected by the Federal Confidentiality of Alcohol and Drug Abuse Patient Records regulations: The Federal rules restrict any use of the information to criminally investigate or prosecute any alcohol or drug abuse patient.[facility] HospitalIn the event this information is protected by the Federal Confidentiality of Alcohol and Drug Abuse Patient Records regulations: The Federal rules restrict any use of the information to criminally investigate or prosecute any alcohol or drug abuse patient.[facility] HospitalIn the event this information is protected by the Federal Confidentiality of Alcohol and Drug Abuse Patient Records regulations: The Federal rules restrict any use of the information to criminally investigate or prosecute any alcohol or drug abuse patient.[facility] HospitalIn the event this information is protected by the Federal Confidentiality of Alcohol and Drug Abuse Patient Records regulations: The Federal rules restrict any use of the information to criminally investigate or prosecute any alcohol or drug abuse patient.[facility] HospitalIn the event this information is protected by the Federal Confidentiality of Alcohol and Drug Abuse Patient Records regulations: The Federal rules restrict any use of the information to criminally investigate or prosecute any alcohol or drug abuse patient.[facility] HospitalIn the event this information is protected by the Federal Confidentiality of Alcohol and Drug Abuse Patient Records regulations: The Federal rules restrict any use of the information to criminally investigate or prosecute any alcohol or drug abuse patient.[facility] HospitalIn the event this information is protected by the Federal Confidentiality of Alcohol and Drug Abuse Patient Records regulations: The Federal rules restrict any use of the information to criminally investigate or prosecute any alcohol or drug abuse patient.[facility] HospitalIn the event this information is protected by the Federal Confidentiality of Alcohol and Drug Abuse Patient Records regulations: The Federal rules restrict any use of the information to criminally investigate or prosecute any alcohol or drug abuse patient.[facility] HospitalIn the event this information is protected by the Federal Confidentiality of Alcohol and Drug Abuse Patient Records regulations: The Federal rules restrict any use of the information to criminally investigate or prosecute any alcohol or drug abuse patient.[facility] HospitalIn the event this information is protected by the Federal Confidentiality of Alcohol and Drug Abuse Patient Records regulations: The Federal rules restrict any use of the information to criminally investigate or prosecute any alcohol or drug abuse patient.[facility] HospitalIn the event this information is protected by the Federal Confidentiality of Alcohol and Drug Abuse Patient Records regulations: The Federal rules restrict any use of the information to criminally investigate or prosecute any alcohol or drug abuse patient.[facility] Goals (unrecognized section and content) Goals [...] BE BASED ON THE PRIMARY CLINICAL RECORDS. [employer] provides no warranty or guarantee of the accuracy or completeness of information in this document.
[2025-07-15] MEDS: 0.9% Saline Lock 10 ML Syringe IV (06:05)
[2025-07-15] MEDS: 0.9% Normal Saline (1000mL) 1,000 ML 70 ML IV (06:05)
[2025-07-15 07:02] LABS: Cholesterol 163 mg/dL (<=200); Low Density Lipoprotein Calc. 81 mg/dL; Triglycerides 120 mg/dL; Very Low Density Lipoprotein 24 mg/dL (5-40); cholesterol:hdl ratio screen 2.81
[2025-07-15 07:22] LABS: Vitamin B12 278 pg/mL (180-914)
--- NOTE | 2025-07-15 09:13 | PCM.PN.BLA ---
Progress Note Currently awaiting MRI, NIH of 1. Continue with stroke protocol for now. She does have an extensive cardiac history with an EF of 20% back in 2022 this was due to cardiomyopathy and with appropriate medications and medical management her EF in 2023 was 50%. Echo is pending but this will not occur until tomorrow and I do recommend that given her previous history that she stay for the echocardiogram as it has been over a year.
--- NOTE | 2025-07-15 11:44 | CON.PCM.NE_ITS ---
Assessment and Plan: Neuro Assessment/Plan Telestroke Attending Consult Note (Audio-Video interface) 45 y/o woman with h/o HTN, DLD, obesity, DM, CAD, NSTEMI, peripartum cardiomyopathy p/w numbness and tingling of left hand and left perioral region. CT head- no acute intracranial process. CTA- no LVO. MRI Brain - no acute stroke. A1c-12.8. LDL-81. Today, she reports improvement and mentions that it was more of numbness in left hand. NIHSS-0 today Diagnosis: TIA Plan: ASA and statin. Follow up TTE. 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 Control of vascular risk factors. I personally attended this patient and spent a total time of 70 minutes evaluating this patient including clinical assessment, review of chart, medical history imaging, and determining appropriate treatment and workup. HPI Consult Data Date of Consult: 07/15/25 HPI Narrative HPI Narrative: 45 y/o woman with h/o HTN, DLD, obesity, DM, CAD, NSTEMI, peripartum cardiomyopathy p/w numbness and tingling of left hand and left perioral region. CT head- no acute intracranial process. CTA- no LVO. MRI Brain - no acute stroke. A1c-12.8. LDL-81. Today, she reports improvement and mentions that it was more of numbness in left hand. NIHSS-0 today [facility] Medical History Cardiac LV ejection fraction 10-20% (08/12/23) Idiopathic cardiomyopathy (08/12/23) delivery delivered TIA (transient ischemic attack) Diabetes HTN (hypertension) Home Medications ?Medication ?Instructions ?Recorded ?Last Taken ?Type empagliflozin 25 mg tablet 25 mg PO QDAY diabetes 11/29 04/22 Unknown History (Jardiance) carvedilol 25 mg tablet 25 mg PO BID blood pressure #180 06/20/25 Unknown Rx tabs furosemide 40 mg tablet 40 mg PO DAILY diuretic 05/30 02/20 Unknown History lisinopril 20 mg tablet 20 mg PO BID blood pressure 90 06/20/25 Unknown Rx days #180 tabs sitagliptin phosphate 100 mg 100 mg PO QDAY diabetes 0 06/20/25 Unknown History tablet (Januvia) aspirin 81 mg chewable tablet 81 mg PO BREAKFAST 30 da ys #30 tabs 07/15/25 Unknown Rx rosuvastatin 10 mg tablet 10 mg PO QHS cholesterol Unknown History Allergy/AdvReac Type Severity Reaction Status Date / Time latex AdvReac Mild RASH Verified 07/14/25 23:23 Penicillins AdvReac UNKNOWN Verified 07/14/25 23:23 Family History Mother Diabetes Hypertension Father Diabetes Hypertension Surgical History Previous section Social History household members: significant other and children housing: house Smoking Status: Never smoker alcohol intake: current alcohol intake frequency: holidays/special occasions only substance use type: does not use caffeine: Yes Type: carbonated beverages Number of servings: 3, coffee Number of servings: 1 and tea Vital Signs Vital Signs Vital Signs: 07/14/25 23:23 07/15/25 00:20 07/15/25 00:41 Temperature 98.3 F Temperature Source Oral Pulse Rate 102 H 88 Respiratory Rate 16 16 Respiratory Effort Respiratory Depth Respiratory Pattern Blood Pressure 181/103 H Blood Pressure Mean 129 Blood Pressure Source Blood Pressure Position Blood Pressure Location Pulse Ox 98 99 98 Oxygen Delivery Method Room Air Room Air Room Air 07/15/25 01:22 07/15/25 03:00 07/15/25 04:01 Temperature 98.1 F Temperature Source Pulse Rate 89 90 84 Respiratory Rate 18 18 18 Respiratory Effort Respiratory Depth Respiratory Pattern Blood Pressure 125/73 H 149/79 H Blood Pressure Mean 90 102 Blood Pressure Source Blood Pressure Position Blood Pressure Location Pulse Ox 97 98 99 Oxygen Delivery Method Room Air Room Air 07/15/25 04:20 07/15/25 05:40 07/15/25 05:47 Temperature 98.2 F Temperature Source Oral Pulse Rate 89 81 Respiratory Rate 18 18 Respiratory Effort Normal Non-Labored Respiratory Depth Normal Respiratory Pattern Normal Blood Pressure 129/89 H 155/98 H Blood Pressure Mean 102 117 Blood Pressure Source Monitor Blood Pressure Position Blood Pressure Location Pulse Ox 98 99 Oxygen Delivery Method Room Air Room Air Room Air 07/15/25 06:02 07/15/25 09:00 07/15/25 09:16 Temperature 98.1 F Temperature Source Oral Pulse Rate 73 Respiratory Rate 16 Respiratory Effort Respiratory Depth Respiratory Pattern Blood Pressure 131/97 H Blood Pressure Mean 108 Blood Pressure Source Monitor Blood Pressure Position Semi-Fowlers Blood Pressure Location Left Forearm Pulse Ox 99 96 96 Oxygen Delivery Method Room Air Room Air Room Air Weight Weight: 92 kg Body Mass Index (BMI) 35.9 EEG Results Procedure Details EEG Procedure Details: MANDA BILL is a 45 year old F with a past medical history of , who presents for evaluation of Electroencephalogram on DATE at TIME Lab / Micro Data 07/15/25 00:36 07/15/25 00:36 Labs: Laboratory Results - last 24 hr 07/15/25 00:36: WBC 6.7, RBC 5.24, Hgb 14.3, Hct 43.5, MCV 83.0, MCH 27.3, MCHC 32.9, RDW Std Deviation 41.3, RDW Coeff of Chad 13.6, Plt Count 347, MPV 9.8, Immature Gran % (Auto) 0.400, Neut % (Auto) 68.3, Lymph % (Auto) 20.2, [place] % (Auto) 8.6, Eos % (Auto) 1.9, Baso % (Auto) 0.6, Absolute Neuts (auto) 4.6, Absolute Lymphs (auto) 1.36, Nucleated RBC % 0, PT 13.0, INR 1.0, APTT 24.7, Sodium 134, Potassium 3.8, Chloride 100, Carbon Dioxide 20.8 L, Anion Gap 13, BUN 12, Creatinine 1.13, Estim Creat Clear Calc 69.64, Est GFR (MDRD) Non-Af 62, BUN/Creatinine Ratio 11.0, Glucose 301 H, Hemoglobin A1c 12.8 H, Calcium 9.6, Troponin T High Sens 13 07/15/25 02:47: Troponin T Hi Sens 2 Hr 9, Triglycerides 120, Cholesterol 163, LDL Cholesterol, Calc 81, VLDL Cholesterol 24, HDL Cholesterol 58, Cholesterol/HDL Ratio 2.81, Vitamin B12 278, TSH 2.140, Ethyl Alcohol < 10.1 07/15/25 06:03: POC Glucose 209 H Rhythm Strip Rhythm Strip: Sinus Rhythm Rate: 90 Ectopy: None Imaging Radiology Impression Brain CT 07/15/25 01:20 IMPRESSION: No intracerebral or extra-axial hemorrhage. No acute cerebrovascular insult. If there is high clinical suspicion, correlate to MRI Unremarkable non-enhanced CT study for the brain. [facility] Head[facility]Neck CTA 07/15/25 01:20 IMPRESSION: Patent intra and extra-cranial carotid and vertebral arteries. No stenotic lesions, aneurysmal dilatation or dissecting intimal flaps. Reading [facility] Active Medications Active Medications Active Medications: Current Medications Generic Name Dose Route Start Last Admin Trade Name Freq PRN Reason Stop Dose Admin Acetaminophen 650 mg 07/15/25 05:28 Acetaminophen 325 Mg Tablet PO Q6H PRN PRN Pain 1-10 Or Fever>99.6 Aspirin 81 mg 07/16/25 08:00 Aspirin 81 Mg Tab.Chew PO BREAKFAST BELLO Atorvastatin Calcium 20 mg 07/15/25 22:00 Atorvastatin Calcium 20 Mg Tablet PO QHS BELLO Enoxaparin Sodium 40 mg 07/15/25 10:00 07/15/25 09:15 Enoxaparin 40 Mg/0.4 Ml Syringe SC 40 mg DAILY BELLO Administration Hydralazine HCl 5 mg 07/15/25 05:28 Hydralazine 20 Mg/Ml Vial IV 07/16/25 05:28 Q30M PRN maintain BP parameters with HR <60 Sodium Chloride 1,000 mls @ 70 mls/hr 07/15/25 05:28 07/15/25 06:05 IV 07/15/25 19:45 70 mls/hr .[id number] BELLO Administration Sodium Chloride 250 mls @ 15 mls/hr 07/15/25 05:29 IV .[id number] PRN Saline Flush Sodium Chloride 250 mls @ 15 mls/hr 07/15/25 05:29 IV .[id number] PRN Additional IVPB Infusion Labetalol HCl 20 mg 07/15/25 00:20 Labetalol 20 Mg/4 Ml Vial IV 07/16/25 00:20 X1 PRN BLOOD PRESSURE Sodium Chloride 10 - 40 ml 07/15/25 05:29 07/15/25 06:05 0.9% Saline Lock 10 Ml Syringe IV 10 ml UD PRN Administration SALINE FLUSH NIHSS NIHSS Nursing Documentation NIHSS Nursing Documentation: NIHSS: Ischemic Stroke/TIA Start: 07/15/25 05:28 Text: For PCU Patients: NIH and Neuro Check every 4 Status: Active hours, PRN and with change in RN caregiver. Freq: [id number] Protocol: Activity Type Activity Date Activity User E-sign Co-sign Detail Recorded Client Recorded Date Recorded By Document 07/15/25 09:00 MS [id number] 07/15/25 09:09 MS 07/15/25 09:00 NIH Stroke Scale [NIHSS] A score of 0 is normal or asymptomatic . Total possible score is 42. Inpatient: RN or Physician to activate a stroke alert for onset of new stroke symptoms or with NIHSS increase >/= 3 points. Following change in neurological status, NIHSS will be performed per physician order or more frequently PRN. -1a. Level of Consciousness 0 - Alert; keenly responsive -1b. LOC Questions 0 - Answers BOTH questions correctly -1c. LOC Commands 0 - Performs BOTH tasks correctly -2. Best Gaze 0 - Normal -3. Visual 0 - No visual loss -4. Facial Palsy 0 - Normal symmetrical movements -5a. Left Arm 0 - No drift; arm holds 90 ( or 45) degrees for full 10 seconds -5b. Right Arm 0 - No drift; arm holds 90 ( or 45) degrees for full 10 seconds -6a. Left Leg 0 - No drift; leg holds 30- degree position for full 5 seconds -6b. Right Leg 0 - No drift; leg holds 30- degree position for full 5 seconds -7. Limb Ataxia 0 - Absent -8. Sensory 1 - Mild-to- moderate sensory loss; -9. Best Language 0 - No aphasia; normal -10. Dysarthria 0 - Normal -11. Extinction and Inattention 0 - No abnormality -Total 1 Query Text:A score of 0 is normal or asymptomatic. Total possible score is 42 . ED: Notify Physician for NIHSS increase by > / = 3 points. Inpatient: RN or Physician to activate a stroke alert for NIHSS increase of > / = 3 points. Coma Scale [Assess] -Eye Opening Spontaneous -Motor Obeys Commands -Verbal Oriented [Total] -Coma Scale Total 15 NIHSS 1a. Level of Consciousness: 0 - Alert; keenly responsive 1b. LOC Questions: 0 - Answers BOTH questions correctly 1c. LOC Commands: 0 - Performs BOTH tasks correctly 2. Best Gaze: 0 - Normal 3. Visual: 0 - No visual loss 4. Facial Palsy: 0 - Normal symmetrical movements 5a. Left Arm: 0 - No drift; arm holds 90 (or 45) degrees for full 10 seconds 5b. Right Arm: 0 - No drift; arm holds 90 (or 45) degrees for full 10 seconds 6a. Left Le - No drift; leg holds 30-degree position for full 5 seconds 6b. Right Le - No drift; leg holds 30-degree position for full 5 seconds 7. Limb Ataxia: 0 - Absent 8. Sensory: 0 - Normal; no sensory loss 9. Best Language: 0 - No aphasia; normal 10. Dysarthria: 0 - Normal 11. Extinction and Inattention: 0 - No abnormality Total: 0
--- NOTE | 2025-07-15 15:20 | PCM.DC ---
Discharge Instructions DC O2, CPAP, BIPAP needs Home O2 Discharge instructions: No Dressing / Incision Discharge Activity: Return to Normal Activity Dressing / Incision Call your doctor if you observe: Fever of 101 or Higher, Shortness of breath, Dizziness, Fainting spells, Swelling in the ankles, Chest pain and Increased palpitations (irregular heartbeat) Follow Up Care Test Results: Test results from this visit will be discussed in further detail at your follow-up appointment, if applicable. Discharge Plan Admission Admit Date/Time: 07/15/25 04:39 Attending Provider: Aj Colon Primary Care Provider: Jane Morris NP Consulting Providers: Jatinder Cornelius; Anastasia Ng; Loreta Samuels; Jihan Camarillo; Meghana Gautam; Jose Valdivia; Janis Sharpe; Jesus Gaitan; Yadiel Estrada; Alex Leiva; Ana Kamara; Miguelangel Salmeron; Bailey Kothari; Andree Agrawal; Prashant Soto; Brad Castañeda; Angie Flynn; Andrea Pereira; Olivia Sam; Evelio Holliday; Denis Watts Instructions Additional Instructions / Restrictions: f/u with PCP to obtain echo. Discharge Orders/Prescriptions Prescriptions: New aspirin 81 mg Tablet,Chewable 81 mg PO BREAKFAST 30 Days Qty: 30 0RF Continued Jardiance 25 mg tablet 25 mg PO QDAY Januvia 100 mg tablet 100 mg PO QDAY furosemide 40 mg tablet 40 mg PO DAILY carvedilol 25 mg tablet 25 mg PO BID Qty: 180 3RF Rx Instructions: must administer with a meal/food lisinopril 20 mg tablet 20 mg PO BID 90 Days Qty: 180 3RF rosuvastatin 10 mg tablet 10 mg PO QHS Referrals / Follow Up: Jane Morris NP, [facility] [Primary Care Provider] - Within 1 Week Disposition Disposition (needs filled in before D/C Order can be placed): Home, Self Care
--- NOTE | 2025-07-15 16:18 | DS.PCM_ITS ---
Providers Date of Admission: 07/15/25 Primary Care Physician: ODALYS Iraheta Consultations 07/15/25 05:28 Consult: Tele-Neurology Routine Consulting Provider: [facility] Reason for Consult: Acute Ischemic Stroke/TIA EMERGENT Consult: No MD Notified: Yes Date Notified: 07/15/25 Time Notified: 05:43 Method of Notification: Answering Service Method of Consult:: Telemedicine Nursing Unit Staff Notify [facility] of Tele-Neurology Consult: Yes Reason For Visit: TIA WITH LEFT FACIAL & LEFT HAND NUMBNESS Diagnosis Discharge Diagnosis (1) TIA (transient ischemic attack): Status: Acute Code(s): G45.9 - Transient cerebral ischemic attack, unspecified (2) Paresthesia of left arm: Status: Acute Code(s): R20.2 - Paresthesia of skin (3) Facial paresthesia: Status: Acute Code(s): R20.2 - Paresthesia of skin (4) Hyperglycemia due to type 2 diabetes mellitus: Status: Acute Code(s): E11.65 - Type 2 diabetes mellitus with hyperglycemia Qualifiers: Diabetes mellitus penitentiary insulin use: without penitentiary use Q ualified Code(s): E11.65 - Type 2 diabetes mellitus with hyperglycemia (5) Obesity (BMI 30-39.9): Status: Acute Code(s): E66.9 - Obesity, unspecified (6) Essential hypertension: Status: Acute Code(s): I10 - Essential (primary) hypertension Medications at Discharge Home Medications empagliflozin 25 mg tablet (Jardiance) 25 mg PO QDAY diabetes 12/13/24 carvedilol 25 mg tablet 25 mg PO BID blood pressure #180 tabs 06/20/25 furosemide 40 mg tablet 40 mg PO DAILY diuretic 06/20/25 lisinopril 20 mg tablet 20 mg PO BID blood pressure 90 days #180 tabs 06/20/25 sitagliptin phosphate 100 mg tablet (Januvia) 100 mg PO QDAY diabetes 06/20/25 aspirin 81 mg chewable tablet 81 mg PO BREAKFAST 30 days #30 tabs 07/15/25 rosuvastatin 10 mg tablet 10 mg PO QHS cholesterol 07/15/25 Hospital Course Operations None Procedures None Summary of Care Provided Minutes Spent on Discharge: 38 Hospital Course: Per HPI: MANDA CRANE, is a 45 F with a past medical history of essential hypertension; on carvedilol BID, lisinopril and furosemide, hyperlipidemia; on rosuvastatin, obesity (class II); with BMI of 37.1 this admission, DM-2; of unknown control on empagliflozin and sitagliptin, CAD; s/p NSTEMI (2022), history of , history of peripartum cardiomyopathy (2022); with LVEF ~10-20% that has since resolved with normal LVEF on last echocardiogram (05/2024) and history of TIA (~2011) who presents to [facility] ER complaining of numbness and tingling in the fingers of her Left hand and Left upper lip. Ms. Crane reports her symptoms began on the morning of July 14, 2025 with numbness in her entire Left hand - but then in ~2 hours prior to arrival she noticed numbness in her Left upper lip that does not cross the midline in addition to the Left lower face. She denies any other associated neurologic symptoms and though she cannot recollect exactly what her symptoms were at that time she was concerned she may be having another TIA so she decided to come in for further evaluation and treatment. She denies related headache, weakness, slurred speech, difficulty understanding speech, fever, chills, nausea, vomiting, abdominal pain, chest pain, palpitations, heart racing, lower extremity edema, dysuria, hematuria, rash, OTC medications, dietary supplements, illicit drug use or other recent illness. In the ER she was noted to have a CT scan of the head without contrast revealed no evidence of acute cerebrovascular insult with a subsequent CTA of the head and neck with IV contrast that showed n o stenotic lesions, aneurysmal dilatation or dissecting intimal flaps with laboratory evidence of Hyperglycemia of 301 mg/dL present on admission with otherwise unremarkable labs and vital signs. She was then admitted to the PCU under observation status for TIA evaluation for ongoing care for a stay that is expected to be less than 48 hours. Hospital Course: 1. TIA?45-year-old female with a history of cardiomyopathy the and uncontrolled diabetes presents to the hospital with signs and symptoms consistent with a TIA. She developed left upper extremity numbness that had lasted the whole day. She denies any trauma and initially thought that she had maybe have slept on it but when it did not resolve she decided to come to the hospital. MRI is negative for stroke and we cannot do an echo today and she does not want to stay until tomorrow. I appreciate neurology's assistance, they recommended the addition of aspirin to her medication regimen. She is already medically managed for her cardiomyopathy with Coreg 25 mg p.o. twice daily as well as Lasix 40 mg p.o. daily and lisinopril 20 mg p.o. twice daily. She is also on Crestor 10 mg p.o. daily. Will not change any of these medications though she may be able to go up on her Crestor though under the purview of her PCP as her LDL was 81 today. I discussed with her the plan for discharge today and she expressed understanding of the risks and benefits of going home and would still like to go home today. We discussed the possibility of getting the echo tomorrow and just not waiting for the result but she would rather go home and have it done as an outpatient. 2. Uncontrolled diabetes?A1c is 12.8, she states this is diet related as she does not watch her diet over summer. She is currently on Jardiance and Januvia and she states that her primary care doctor is considering starting Ozempic. She says that she has been on multiple medications in the past and the lowest she seen her A1c was 8. I am hesitant to make any changes because of not sure which medication she has been on in the past, as she could not give me all of them she says that she did not tolerate metformin and that she used to be on insulin as well as Trulicity. She states that the Trulicity did not work. We had extensive conversation about watching her diet and exercising is being the only thing that she can do to control her diabetes herself. 3. Essential hypertension, hyperlipidemia, cardiomyopathy are all chronic medical conditions which complicate her care. Her home medications were continued where appropriate Physical Exam Narrative General: Alert, Oriented x3, Cooperative, No apparent distress HEENT: Atraumatic, PERRLA, EOMI, Normocephalic Oral: Moist Mucosa Neck: Supple, No JVD Lungs: Clear to auscultation, Normal air movement, No rhonchi, No wheeze, No rales Cardiovascular: Regular rate, Regular Rhythm, Normal S1, Normal S2, No murmurs Abdomen: Soft, Non Tender, Non-Distended, No Hepato-splenomegaly Extremities: No edema, Capillary Refill Less than 3 Seconds Skin: No rashes, No breakdown Musculoskeletal: No Tenderness to Palpation of Joints or Extremities Neurological: No focal neurological deficits, Motor Exam 5/5 strength throughout, Sensory exam intact to light touch and pain Psych/Mental Status: Normal Affect, Appropriate Weight / BMI Weight Weight: 202 lb 13.204 oz Body Mass Index (BMI) 35.9 ABG / Lab / Microbiology Data 07/15/25 00:36 07/15/25 00:36 Laboratory: Laboratory Results - last 24 hr 07/15/25 00:36: WBC 6.7, RBC 5.24, Hgb 14.3, Hct 43.5, MCV 83.0, MCH 27.3, MCHC 32.9, RDW Std Deviation 41.3, RDW Coeff of Chad 13.6, Plt Count 347, MPV 9.8, Immature Gran % (Auto) 0.400, Neut % (Auto) 68.3, Lymph % (Auto) 20.2, [place] % (Auto) 8.6, Eos % (Auto) 1.9, Baso % (Auto) 0.6, Absolute Neuts (auto) 4.6, Absolute Lymphs (auto) 1.36, Nucleated RBC % 0, PT 13.0, INR 1.0, APTT 24.7, Sodium 134, Potassium 3.8, Chloride 100, Carbon Dioxide 20.8 L, Anion Gap 13, BUN 12, Creatinine 1.13, Estim Creat Clear Calc 69.64, Est GFR (MDRD) Non-Af 62, BUN/Creatinine Ratio 11.0, Glucose 301 H, Hemoglobin A1c 12.8 H, Calcium 9.6, Troponin T High Sens 13 07/15/25 02:47: Troponin T Hi Sens 2 Hr 9, Triglycerides 120, Cholesterol 163, LDL Cholesterol, Calc 81, VLDL Cholesterol 24, HDL Cholesterol 58, Cholesterol/HDL Ratio 2.81, Vitamin B12 278, TSH 2.140, Ethyl Alcohol < 10.1 07/15/25 06:03: POC Glucose 209 H Radiography Diagnostic Testing: Radiology Impression Brain CT 07/15/25 01:20 IMPRESSION: No intracerebral or extra-axial hemorrhage. No acute cerebrovascular insult. If there is high clinical suspicion, correlate to MRI Unremarkable non-enhanced CT study for the brain. Reading [facility] [id number] Head/Neck CTA 07/15/25 01:20 IMPRESSION: Patent intra and extra-cranial carotid and vertebral arteries. No stenotic lesions, aneurysmal dilatation or dissecting intimal flaps. Reading Location[id number] Brain MRI 07/15/25 04:56 IMPRESSION: No acute intracranial abnormality. Reading Location: [id number] Instructions Call your doctor if you observe: Fever of 101 or Higher, Shortness of breath, Dizziness, Fainting spells, Swelling in the ankles, Chest pain and Increased palpitations (irregular heartbeat) DC O2, CPAP, BIPAP Needs Home O2 Discharge instructions: No Meaningful Use Info Meaningful Use Meaningful Use Diagnoses (Choose all that apply): None applicable Discharge Plan Admission Admit Date/Time: 07/15/25 04:39 Attending Provider: Aj Colon Primary Care Provider: Jane Morris [facility] Consulting Providers: Jatinder Cornelius; Anastasia Ng; Loreta Samuels; Jihan Camarillo; Meghana Gautam; Jose Valdivia; Janis Sharpe; Jesus Gaitan; Yadiel Estrada; Alex Leiva; Ana Kamara; Miguelangel Salmeron; Bailey Kothari; Andree Agrawal; Prashant Soto; Brad Castañeda; Angie Flynn; Andrea Pereira; Olivia Sam; Evelio Holliday; Denis Watts Instructions Additional Instructions / Restrictions: f/u with PCP to obtain echo. Discharge Orders/Prescriptions Prescriptions: New aspirin 81 mg Tablet,Chewable 81 mg PO BREAKFAST 30 Days Qty: 30 0RF Continued Jardiance 25 mg tablet 25 mg PO QDAY Januvia 100 mg tablet 100 mg PO QDAY furosemide 40 mg tablet 40 mg PO DAILY carvedilol 25 mg tablet 25 mg PO BID Qty: 180 3RF Rx Instructions: must administer with a meal/food lisinopril 20 mg tablet 20 mg PO BID 90 Days Qty: 180 3RF rosuvastatin 10 mg tablet 10 mg PO QHS Referrals / Follow Up: Jane Morris [facility], [facility] [Primary Care Provider] - Within 1 Week Disposition Disposition (needs filled in before D/C Order can be placed): Home, Self Care Charges/Coding Visit Charges Inpatient E&M: 65939 Disch Hosp >30min
== END 2025-07-15 15:22 | disposition home or self-care (01) ==
LOC: ED 07-15 03:27 → PCU 07-15 05:25
PROVIDERS: Admitting Provider Internal Medicine; Emergency Provider Emergency Medicine; PCP Nurse Practitioner Family; Visit Provider Family Medicine
DX: G45.9 Transient cerebral ischemic attack, unspecified (principal); I42.9 Cardiomyopathy, unspecified; E66.813 Obesity, class 3; E11.65 Type 2 diabetes mellitus with hyperglycemia; R20.2 Paresthesia of skin; E78.5 Hyperlipidemia, unspecified; Z82.49 Family history of ischemic heart disease and other diseases of the circulatory system; I45.2 Bifascicular block; I25.2 Old myocardial infarction; Z79.82 Long term (current) use of aspirin; Z79.84 Long term (current) use of oral hypoglycemic drugs; I25.10 Atherosclerotic heart disease of native coronary artery without angina pectoris; Z68.37 Body mass index [BMI] 37.0-37.9, adult; Z79.899 Other long term (current) drug therapy; I10 Essential (primary) hypertension; R20.0 Anesthesia of skin
CPT/HCPCS: 70450; 70496; 70498; 70551; 80048; 80061; 82077; 82607; 82962; 83036; 84443; 84484; 85025; 85610; 85730; 92523; 93005; 94762; 96372; 97161; 97802; 99221; 99285; Q9967; A4216; G0378